=== PATIENT | male | born 1970 | race Caucasian/White ===

== ENCOUNTER 2020-04-17 12:10 | Outpatient (REF) | payer BC, SELFPAY | END 2020-04-17 12:30 | LOC: LBN 12:10 | PROVIDERS: PCP Student in an Organized Health Care Education/Training Program; Visit Provider Nurse Practitioner Family | DX: L03.116 Cellulitis of left lower limb (principal) | CPT/HCPCS: 87077; 87070; 87186; 87205 ==

== ENCOUNTER 2020-04-17 18:05 | Outpatient (CLI) | payer BC, SELFPAY ==
--- NOTE | 2020-04-17 12:19 | DI.RAD_ITS ---
EXAM: XR FEMUR LT CLINICAL HISTORY: Stump ulcer/infection, cellulitis, L03.116, r/o OM. TECHNIQUE: 2D digital imaging was performed. COMPARISON: None. FINDINGS: There are no prior comparison exams. There is a below the knee amputation at the proximal 3rd of the tibia and fibula. There is soft tissue swelling as well as a soft tissue wound seen distally at the stump. No bony erosions are seen. The hip and femur are unremarkable. Vascular calcifications are seen. IMPRESSION: Below the knee amputation. Stump ulcer. No definite evidence of osteomyelitis. DATA REPOSITORY: RADIATION DOSE DELIVERED:
== END 2020-04-17 18:25 ==
PROVIDERS: PCP Student in an Organized Health Care Education/Training Program; Visit Provider Nurse Practitioner Family
DX: T87.44 Infection of amputation stump, left lower extremity (principal); L03.116 Cellulitis of left lower limb; L97.829 Non-pressure chronic ulcer of other part of left lower leg with unspecified severity
CPT/HCPCS: 73552

== ENCOUNTER 2020-04-18 04:33 | Outpatient (CLI) | payer BC, SELFPAY ==
[2020-04-18 09:06] LABS: Abs Immature Grans 0.03 10^3/uL (0.0-0.06); Absolute Basophil Count 0.04 10^3/uL (0.0-0.2); Absolute Eosinophil Count 0.46 10^3/uL (0.0-0.7); Absolute Lymphocyte Count 1.45 10^3/uL (1.2-3.4); Absolute Monocyte Count 0.89 10^3/uL (0.1-0.8); Basophils % 0.4; Eosinophils % 4.6; HCT 40.6 % (40.0-50.0); HGB 13.5 g/dL (13.5-17.5); Immature Grans % 0.3; Lymphocytes % 14.5; MCH 34.6 pg (27.0-33.0); MCHC 33.3 % (32.0-36.0); MCV 104.1 fL (80-95); MPV 9.9 fL (8.0-11.0); Monocytes % 8.9; Neutrophils % 71.3; Nucleated RBC 0 %; Platelet Count 217 10^3/uL (130-400); RDW 12.7 % (11.8-14.1); RDW-SD 49.1 fL; WBC 9.97 10^3/uL (4.4-10.8)
[2020-04-18 09:52] LABS: C-Reactive Protein 6.75 mg/dL (0.0-0.3)
[2020-04-18 10:52] LABS: ESR 80 mm/hr (0-15)
== END 2020-04-18 04:53 ==
PROVIDERS: PCP Student in an Organized Health Care Education/Training Program; Visit Provider Nurse Practitioner Family
DX: L03.116 Cellulitis of left lower limb (principal)
CPT/HCPCS: 36415; 85652; 85025; 86140

== ENCOUNTER 2020-04-25 03:37 | Outpatient (CLI) | payer BC, SELFPAY ==
[2020-04-25 08:31] LABS: Anion Gap 5.9 mmol/L (3-11); BUN 56 mg/dL (7-18); C-Reactive Protein 6.41 mg/dL (0.0-0.3); CO2 35.1 mmol/L (21.0-32.0); CREATININE 2.89 mg/dL (0.70-1.30); Calcium 9.3 mg/dL (8.5-10.1); Chloride 97 mmol/L (98-107); Estimated GFR 23.24 (mL/min/1.73m2); Glucose 218 mg/dL (74-106); Potassium 3.9 mmol/L (3.5-5.1); Sodium 138 mmol/L (136-145)
[2020-04-25 08:58] LABS: ESR 88 mm/hr (0-15)
== END 2020-04-25 03:57 ==
PROVIDERS: PCP Student in an Organized Health Care Education/Training Program; Visit Provider Nurse Practitioner Adult Health
DX: L03.116 Cellulitis of left lower limb (principal); R79.82 Elevated C-reactive protein (CRP); R70.0 Elevated erythrocyte sedimentation rate; Z79.899 Other long term (current) drug therapy; Z51.81 Encounter for therapeutic drug level monitoring
CPT/HCPCS: 36415; 80048; 85652; 86140

== ENCOUNTER 2020-04-30 02:22 | Outpatient (CLI) | payer BC, SELFPAY ==
[2020-04-30 09:25] LABS: Anion Gap 2.6 mmol/L (3-11); BUN 56 mg/dL (7-18); CO2 36.4 mmol/L (21.0-32.0); Calcium 8.8 mg/dL (8.5-10.1); Chloride 100 mmol/L (98-107); Estimated GFR 18.51 (mL/min/1.73m2); Glucose 162 mg/dL (74-106); Potassium 4.5 mmol/L (3.5-5.1); Sodium 139 mmol/L (136-145)
[2020-04-30 09:38] LABS: CREATININE 3.52 mg/dL (0.70-1.30)
== END 2020-04-30 02:42 ==
PROVIDERS: PCP Student in an Organized Health Care Education/Training Program; Visit Provider Nurse Practitioner Adult Health
DX: Z51.81 Encounter for therapeutic drug level monitoring (principal); R79.89 Other specified abnormal findings of blood chemistry
CPT/HCPCS: 36415; 80048

== ENCOUNTER 2020-04-30 11:53 | Emergency (ER) | payer BC, SELFPAY ==
[2020-04-30] VITALS (9 sets, daily range): BP systolic 139–165; BP diastolic 81–88; PULSE 84–93; RESP 16–18; TEMP 36.3–36.9; O2SAT 97–98
--- NOTE | 2020-04-30 12:40 | ED.GENADUL_ITS ---
Discharge Plan Disposition Patient Disposition: HOME Condition: Stable Discharge Details Clinical Impression: Non-healing wound of amputation stump, Creatinine elevation Primary Care Provider: Candice Perez ED Provider: Darek Driscoll Home Meds and New Rx's Prescriptions: Continued fluticasone propion-salmeterol [Advair Diskus] 250-50 mcg/dose blister with device 1 inh inhalation BID Qty: 60 RF: 0 silver sulfadiazine 1 % cream 1 applic topical BID Qty: 50 RF: 3 Hold Instructions: Home Medication placed on hold at Doctor's office glimepiride 4 mg tablet 4 mg PO QAM RF: 0 cetirizine 10 mg tablet 10 mg PO DAILY RF: 0 furosemide 40 mg tablet 40 mg PO DAILY RF: 0 omeprazole 20 mg capsule,delayed release(DR/EC) 20 mg PO DAILY RF: 0 carvedilol 12.5 mg tablet 12.5 mg PO BID RF: 0 aspirin 81 mg tablet,delayed release (DR/EC) 81 mg PO DAILY RF: 0 atorvastatin 10 mg tablet 10 mg PO DAILY RF: 0 cholecalciferol (vitamin D3) 25 mcg (1,000 unit) capsule 25 mcg PO DAILY RF: 0 cyanocobalamin (vitamin B-12) 1,000 mcg capsule 1,000 mcg PO DAILY RF: 0 magnesium oxide 500 mg tablet 500 mg PO DAILY RF: 0 Trulicity 0.75 mg/0.5 mL pen injector 0.75 mg subcut QWEEK RF: 0 azelastine 137 mcg (0.1 %) aerosol,spray See Rx Instructions intranasal BID RF: 0 fluticasone propionate [Allergy Relief (fluticasone)] 50 mcg/actuation spray,suspension 1 spray intranasal DAILY RF: 0 halobetasol propionate 0.05 % cream 1 applic topical DAILY PRN (Reason: psoriasis) RF: 0 pseudoephedrine HCl 240 mg tablet extended release 24 hr 240 mg PO DAILY PRNRF: 0 Discontinued lisinopril 10 mg tablet 10 mg PO DAILY RF: 0 Hold Instructions: Home Medication placed on hold at Doctor's office sulfamethoxazole-trimethoprim [Bactrim DS] 800-160 mg tablet 1 tab PO BID Qty: 28 RF: 0 Discharge Instructions Additional Instructions: At this time you will continue to hold off on taking your lisinopril and will hold off on all antibiotic therapy. I personally spoke with your primary care provider regarding your visit today, she will set up an outpatient blood draw for you either on Tuesday or Tuesday. Please follow-up with your primary care provider and orthopedic provider next week as already scheduled. It appears as though they are already in the process of getting you a nephrology referral in [facility]. Be sure to drink plenty of fluids to avoid any dehydration. Please watch for new or worsening symptoms and return to the ER for any concerns. Our care management team has been notified and they will be in contact with you to help expedite outpatient hyperbaric chamber therapy at [facility] for your ongoing nonhealing wound. Please follow the instructions given to you by our wound team as well. Medical Decision Making 50-year-old gentleman with history of diabetes, chronic kidney disease, below the knee amputation presents for elevated creatinine and a nonhealing stump wound. He is otherwise asymptomatic. Denies fever, redness, pain. Will obtain IV access, reassess routine laboratory values and have wound care evaluate the wound. Clinically there are no clear signs of infection. Wound care evaluated the wound, please see their note. Wound was dressed by wound care. No additional recommendations here in the ER. Laboratory values reveal a white blood cell count of 10.36 hemoglobin 13 hematocrit 38.6 platelet count 250. Potassium 4.3 creatinine 3.37 with a GFR of 19.47. Creatinine earlier today was 3.52. Did discuss the case with Dr. Laboy. Does not appear to be anything else emergent to do here in the ER. Patient already has a referral to nephrology as an outpatient. He is scheduled to be seen by both his primary care provider and orthopedics next week. I will contact our care management team to help expedite potential hyperbaric chamber therapy at [facility]. In the meantime I was able to speak with Dr. Perez, the patient's primary care provider. The patient will discontinue all antibiotic therapy and continue to hold on the lisinopril. They will schedule him either on Tuesday or Tuesday for an outpatient redraw to check his creatinine. Patient has no additional questions or concerns and is comfortable with this plan. Medical Records Medical records reviewed: Yes I reviewed the patient's medical records. Lab Data Lab results reviewed: Yes I reviewed the patient's lab results. Labs: Laboratory Tests Range/Units 04/30/20 04/30/20 12:45 12:45 WBC (4.4-10.8) 10^3/uL 10.36 RBC (4.36-5.78) 10^6/uL 3.84 L Hgb (13.5-17.5) g/dL 13.0 L Hct (40.0-50.0) % 38.6 L MCV (80-95) fL 100.5 H MCH (27.0-33.0) pg 33.9 H MCHC (32.0-36.0) % 33.7 RDW (11.8-14.1) % 12.5 Plt Count (130-400) 10^3/uL 250 MPV (8.0-11.0) fL 10.2 Immature Gran % 0.2 Neutrophils % 77.0 Lymphocytes % 11.5 Monocytes % 6.3 Eosinophils % 4.4 Basophils % 0.6 Nucleated RBC % % 0 Absolute Neutrophils (1.2-6.7) 10^3/uL 7.98 H Absolute Lymphocytes (1.2-3.4) 10^3/uL 1.19 L Absolute Monocytes (0.1-0.8) 10^3/uL 0.65 Absolute Eosinophils (0.0-0.7) 10^3/uL 0.46 Absolute Basophils (0.0-0.2) 10^3/uL 0.06 Sodium (136-145) mmol/L 134 L Potassium (3.5-5.1) mmol/L 4.3 Chloride (98-107) mmol/L 97 L Carbon Dioxide (21.0-32.0) mmol/L 29.2 Anion Gap (3-11) mmol/L 7.8 BUN (7-18) mg/dL 57 H Creatinine (0.70-1.30) mg/dL 3.37 H Estimated GFR/1.73 m2 (mL/min/1.73m2) 19.47 Glucose (74-106) mg/dL 189 H Calcium (8.5-10.1) mg/dL 8.6 Total Bilirubin (0.2-1.0) mg/dL 0.5 AST (15-37) U/L 21 ALT (16-63) U/L 20 Alkaline Phosphatase (46-116) U/L 116 Total Protein (6.4-8.2) g/dL 7.1 Albumin (3.4-5.0) g/dL 3.1 L HPI General Mode of arrival: ambulatory . Date/Time Provider Initiated Documentation: 04/30/20 11:55 . Limitations to Documentation: no limitations . Information obtained by: patient . HPI Narrative: This is a 50-year-old gentleman with history of diabetes type 2, CHF, CKD stage III, left below the knee amputation approximately 4 years ago, presenting to the ER per the request of his primary care office. He moved up here earlier this year, began working at [employer], and from being on his feet frequently, developed a wound/ulcer to his left below the knee stump. This was evaluated by his primary care provider, he was initially placed on clindamycin and subsequently changed to Bactrim. He believes he has been on antibiotics for approximately 2 weeks, Bactrim changed over approximately 1 week ago. He had outpatient blood work drawn today, creatinine was elevated above baseline, sent to the ER for evaluation. He otherwise has no concerns or complaints. He was supposed to be seen by orthopedics yesterday but because of a misunderstanding he did not make the appointment. He is scheduled to be seen by both his primary care provider and orthopedics next week. He to he takes lisinopril for hypertension but this is on hold currently. He denies fever, headache, chest pain, shortness of breath abdominal pain, nausea, vomiting. He denies any pain from the left leg wound. He reports that the redness that was present a couple weeks ago looks significantly better. Related Data Home Medications Medication Instructions Recorded Confirmed aspirin 81 mg tablet,delayed 81 mg PO DAILY 04/02/20 04/30/20 release atorvastatin 10 mg tablet 10 mg PO DAILY 04/02/20 04/30/20 azelastine 137 mcg (0.1 %) nasal See Rx Instructions INTRANASAL BID 04/02/20 04/30/20 spray aerosol carvedilol 12.5 mg tablet 12.5 mg PO BID 04/02/20 04/30/20 cetirizine 10 mg tablet 10 mg PO DAILY 04/02/20 04/30/20 cholecalciferol (vitamin D3) 25 25 mcg PO DAILY 04/02/20 04/30/20 mcg (1,000 unit) capsule cyanocobalamin (vitamin B-12) 1,000 mcg PO DAILY 04/02/20 04/30/20 1,000 mcg capsule dulaglutide 0.75 mg/0.5 mL 0.75 mg SUBCUT QWEEK 04/02/20 04/30/20 subcutaneous pen injector fluticasone propionate 50 1 spray INTRANASAL DAILY 04/02/20 04/30/20 mcg/actuation nasal spray,suspension furosemide 40 mg tablet 40 mg PO DAILY 04/02/20 04/30/20 glimepiride 4 mg tablet 4 mg PO QAM 04/02/20 04/30/20 halobetasol propionate 0.05 % 1 applic TOPICAL DAILY PRN 04/02/20 04/30/20 topical cream magnesium oxide 500 mg tablet 500 mg PO DAILY 04/02/20 04/30/20 omeprazole 20 mg capsule,delayed 20 mg PO DAILY 04/02/20 04/30/20 release pseudoephedrine HCl 240 mg 240 mg PO DAILY PRN 04/02/20 04/30/20 tablet,extended release 24 hr fluticasone 250 mcg-salmeterol 50 1 inh INHALATION BID #60 ea 04/05/20 04/30/20 mcg/dose blistr powdr for inhalation silver sulfadiazine 1 % topical 1 applic TOPICAL BID #50 g 04/10/20 04/30/20 cream Previous Rx's Medication Instructions Recorded fluticasone 250 mcg-salmeterol 50 1 inh INHALATION BID #60 ea 04/05/20 mcg/dose blistr powdr for inhalation silver sulfadiazine 1 % topical 1 applic TOPICAL BID #50 g 04/10/20 cream Allergies Allergy/AdvReac Type Severity Reaction Status Date / Time No Known Allergies Allergy Verified 04/30/20 12:07 General Stated Complaint: GenMedical RAOMN: 3 Review of Systems Constitutional Constitutional: Denies fatigue, Denies fever(s) and Denies weakness Cardiovascular Cardiovascular: Denies chest pain and Denies dyspnea Respiratory Respiratory: Denies dyspnea Gastrointestinal Gastrointestinal: Denies abdominal pain, Denies nausea and Denies vomiting Musculoskeletal Musculoskeletal: Denies back pain, Denies numbness and Reports tingling (Baseline neuropathy) Integumentary/Breasts Skin/Breast: Denies erythema Neurologic Neurologic: Denies numbness and Denies weakness Endocrine Endocrine: Denies fatigue [facility] Medical History Chronic systolic CHF (congestive heart failure) CKD stage 3 secondary to diabetes Erectile dysfunction Hypertension associated with diabetes Nasal polyp Pt report based on past ENT Nasal polyps Persistent proteinuria associated with type 2 diabetes mellitus Secondary hyperparathyroidism Testicular cancer Type II diabetes mellitus Vitamin D deficiency Surgical History History of amputation of great toe Right History of amputation of left lower extremity History of cardiac defibrillator placement History of cataract removal with insertion of prosthetic lens (~03/02/18) Right History of cystoscopy (~12/25/13) History of gastric bypass (~07/01/14) History of orchiectomy, unilateral (~06/1999) Right History of tonsillectomy (~1979) Family History Mother Diabetes Father Diabetes Heart disease Hypertension Sister Diabetes Brother Diabetes Brother Diabetes Heart disease Hypertension Social History Smoking/Tobacco Use Status: Former Tobacco Use Quit Date: 07/18/98 Tobacco: How many years used: 10 Alcohol Intake: current Alcohol Intake frequency: 0-2 drinks per day Alcohol type: hard liquor Drug use: Never Substance use type: does not use Adopted: No Caregiver/Support person: No Foster care: No Household members: significant other Housing: house Do you need help understanding health information?: Rarely current occupation: Unemployed Sexually active: Yes Do you think of yourself as: straight/heterosexual Current gender identity: male Do you feel safe at home: Yes Do you feel safe in your relationship?: Yes Exam Const General: cooperative, healthy appearing, comfortable and no acute distress Orientation: alert, awake and oriented x3 HENMT Head: normal to inspection, normocephalic and atraumatic Mouth: moist mucous membranes Eyes General: appearance normal, both eyes and all related structures Conjunctivae: conjunctivae normal Sclera: sclerae normal Neck Neck: normal visual inspection, full ROM, trachea midline and supple Resp Effort & Inspection: normal respiratory effort and able to speak in complete sentences Auscultation: clear to auscultation bilaterally Cardio Rate: regular rate Rhythm: regular rhythm GI Palpation: soft and nontender Back/Spine/Pelvis Back: No back tenderness Skin General skin exam: no rashes or lesions noted Neuro General: patient alert, patient awake, moves all extremities and no focal motor deficits Gait: gait assisted (Left below the knee prosthesis) Sensory Exam: no sensory deficits noted Extrem Other: Left below the knee amputation stump, distally, with a open wound approximately the size of a quarter. There is no active drainage, warmth, erythema, induration, fluctuance, tenderness to palpation. There is also no evidence of any granulation tissue. Psych Appearance: grossly normal Mental Status: mental status grossly normal Course Vital Signs Vital signs: Vital Signs Temperature 36.3 C L 04/30/20 12:03 Pulse 91 H 04/30/20 12:03 Respiratory Rate 18 04/30/20 12:03 Blood Pressure 165/88 H 04/30/20 12:03 Pulse Oximetry 98 04/30/20 12:03 Temperature 36.6 C 04/30/20 12:27 Temperature Source Temporal Artery Scan 04/30/20 12:27 Pulse 93 H 04/30/20 12:27 Respiratory Rate 16 04/30/20 12:27 Respiratory Effort 04/30/20 12:20 Respiratory Depth Normal 04/30/20 12:20 Respiratory Pattern Normal 04/30/20 12:20 Blood Pressure 142/87 H 04/30/20 12:27 Blood Pressure Position Sitting 04/30/20 12:03 Pulse Oximetry 98 04/30/20 12:27 Oxygen Delivery Method Room Air 04/30/20 12:27 Oxygen Flow Rate 0 04/30/20 12:27 Pain Level 0 04/30/20 12:27
[2020-04-30 12:56] LABS: Abs Immature Grans 0.02 10^3/uL (0.0-0.06); Absolute Basophil Count 0.06 10^3/uL (0.0-0.2); Absolute Eosinophil Count 0.46 10^3/uL (0.0-0.7); Absolute Lymphocyte Count 1.19 10^3/uL (1.2-3.4); Absolute Monocyte Count 0.65 10^3/uL (0.1-0.8); Absolute Neutrophil Count 7.98 10^3/uL (1.2-6.7); Basophils % 0.6; Eosinophils % 4.4; HCT 38.6 % (40.0-50.0); Immature Grans % 0.2; Lymphocytes % 11.5; MCH 33.9 pg (27.0-33.0); MCHC 33.7 % (32.0-36.0); MCV 100.5 fL (80-95); MPV 10.2 fL (8.0-11.0); Monocytes % 6.3; Nucleated RBC 0 %; Platelet Count 250 10^3/uL (130-400); RBC 3.84 10^6/uL (4.36-5.78); RDW 12.5 % (11.8-14.1); RDW-SD 45.9 fL; WBC 10.36 10^3/uL (4.4-10.8)
[2020-04-30] MEDS: Normal Saline 1,000 ML 1000 ML IV (13:04)
[2020-04-30 13:18] LABS: ALT 20 U/L (16-63); AST 21 U/L (15-37); Albumin 3.1 g/dL (3.4-5.0); Alkaline Phosphatase 116 U/L (46-116); Anion Gap 7.8 mmol/L (3-11); BUN 57 mg/dL (7-18); Bilirubin, Total 0.5 mg/dL (0.2-1.0); CO2 29.2 mmol/L (21.0-32.0); CREATININE 3.37 mg/dL (0.70-1.30); Calcium 8.6 mg/dL (8.5-10.1); Chloride 97 mmol/L (98-107); Estimated GFR 19.47 (mL/min/1.73m2); Glucose 189 mg/dL (74-106); Potassium 4.3 mmol/L (3.5-5.1); Sodium 134 mmol/L (136-145); Total Protein 7.1 g/dL (6.4-8.2)
--- NOTE | 2020-04-30 13:36 | WOUNDCARE ---
Wound Care Report 04/30/20 1300- Pt seen in ED for l infected residual limb wound. Per pt wound present for about a month and pt noticed it after standing more. Pt reports that he does own dressing changes and the wound had a strong odor which was improving. Pt seen today by PCP for wound follow up and pt reported he had not changed the dressing today yet. After removing dressing which had strike through serous drainage, wound was cleansed with ns, pat dry and measured at 4.2 cm x 3.5 cm x 1 cm tunnel at approximately center with another 3 cm tunnel anterior at approximately 12 o'clock. Slight odor noted. Wound cleansed with anasept cleanser, then plain packing strip inserted gently into tunnels and mepilex applied with gauze to secure. Wound bed light pink, with approximately 0.2 cm border of dark pink at periphery of wound bed. Edges of wound slightly macerated with dusky pink periphery.Pt denies pain at site, but does have feeling in residual limb with dressing change. Patient verbalized understanding of dressing change, able to state it back, reminded not to leave anything in wound longer than 24 hours and to change dressing if saturated. Pt verbalized understanding.
--- NOTE | 2020-04-30 13:59 | NUR.NOTE ---
referral to care management to get patient appointment with hyperbaric wound care at [facility].Nursing Note:
--- NOTE | 2020-05-02 13:13 | PDOC.ERCMPRO ---
- If Service Date Differs Date of service: 04/30/20 Time of Service: 14:50 Care Management Progress Note Mr. Serrato is seen in the ED for a non-healing wound of amputation stump. At the request of ED provider, CM coordinates a referral to the [facility] at [facility] in [place], [place]. CM will follow up with patient to ensure appointment is scheduled.
== END 2020-04-30 14:28 | disposition home or self-care (01) ==
PROVIDERS: Emergency Provider Physician Assistant; PCP Student in an Organized Health Care Education/Training Program
DX: T87.89 Other complications of amputation stump (principal); L97.901 Non-pressure chronic ulcer of unspecified part of unspecified lower leg limited to breakdown of skin; R94.4 Abnormal results of kidney function studies; I12.9 Hypertensive chronic kidney disease with stage 1 through stage 4 chronic kidney disease, or unspecified chronic kidney disease; N18.30 Chronic kidney disease, stage 3 unspecified; E11.22 Type 2 diabetes mellitus with diabetic chronic kidney disease; Z79.84 Long term (current) use of oral hypoglycemic drugs; Z89.512 Acquired absence of left leg below knee
CPT/HCPCS: 36415; 80053; 96360; 99284; 85025

== ENCOUNTER 2020-05-03 11:00 | Outpatient (REF) | payer BC, SELFPAY ==
[2020-05-03 15:26] LABS: Anion Gap 3.6 mmol/L (3-11); BUN 41 mg/dL (7-18); CO2 33.4 mmol/L (21.0-32.0); Chloride 100 mmol/L (98-107); Estimated GFR 26.26 (mL/min/1.73m2); Glucose 162 mg/dL (74-106); Potassium 4.3 mmol/L (3.5-5.1); Sodium 137 mmol/L (136-145)
== END 2020-05-03 11:20 ==
LOC: LBO 11:00
PROVIDERS: PCP Student in an Organized Health Care Education/Training Program; Visit Provider Student in an Organized Health Care Education/Training Program
DX: E11.9 Type 2 diabetes mellitus without complications (principal); R79.89 Other specified abnormal findings of blood chemistry
CPT/HCPCS: 80048

== ENCOUNTER 2020-05-14 02:44 | Outpatient (CLI) | payer BC, SELFPAY ==
--- NOTE | 2020-05-14 07:15 | DI.CT_ITS ---
EXAM: CT LOWER EXTREMITY LT WO CLINICAL HISTORY: ? OSTEOMYELITIS,NON HEALING WOUND,T87.89,PACEMAKER SO CANNOT HAVE MRI TECHNIQUE: COMPARISON: CR XR FEMUR LT from 04/17/2020 FINDINGS: CT examination of the leg was performed without contrast administration. Patient has a below-knee am putation. There is intermediate attenuation poorly defined area of fluid to soft tissue attenuation surrounding the distal aspect tibial remnant, highly suggestive of abscess. Tip of the fibula lies peripherally in this area of abnormal attenuation. There is a moth eaten appearance of the distal aspect of the tibia suspicious for osteomyelitis. There is sclerosis extending through the cortex of the tibial re mnant extending up to 10 cm above the distal aspect of the remnant. No focal bony abnormality of fib ular remnant noted. IMPRESSION: Findings suggestive of abscess at the stump of the BKA with probable osteomyelitis of the distal aspe ct of the tibia. RADIATION DOSE DELIVERED: 253.65mGy.cm Total DLP
== END 2020-05-14 03:04 ==
PROVIDERS: PCP Student in an Organized Health Care Education/Training Program; Visit Provider Orthopaedic Surgery
DX: T87.89 Other complications of amputation stump (principal); Z95.0 Presence of cardiac pacemaker
CPT/HCPCS: 73700

== ENCOUNTER 2020-05-23 12:37 | Outpatient (REF) | payer BC, SELFPAY ==
[2020-05-23 19:52] LABS: Abs Immature Grans 0.02 10^3/uL (0.0-0.06); Absolute Basophil Count 0.04 10^3/uL (0.0-0.2); Absolute Eosinophil Count 0.55 10^3/uL (0.0-0.7); Absolute Lymphocyte Count 1.56 10^3/uL (1.2-3.4); Absolute Monocyte Count 0.84 10^3/uL (0.1-0.8); Absolute Neutrophil Count 5.68 10^3/uL (1.2-6.7); Basophils % 0.5; Eosinophils % 6.3; HCT 41.5 % (40.0-50.0); HGB 13.6 g/dL (13.5-17.5); Immature Grans % 0.2; MCH 33.9 pg (27.0-33.0); MCHC 32.8 % (32.0-36.0); MCV 103.5 fL (80-95); MPV 11.2 fL (8.0-11.0); Monocytes % 9.7; Neutrophils % 65.3; Nucleated RBC 0 %; Platelet Count 186 10^3/uL (130-400); RBC 4.01 10^6/uL (4.36-5.78); RDW 12.9 % (11.8-14.1); RDW-SD 48.6 fL; WBC 8.69 10^3/uL (4.4-10.8)
[2020-05-23 20:00] LABS: Anion Gap 4.4 mmol/L (3-11); BUN 64 mg/dL (7-18); CO2 36.6 mmol/L (21.0-32.0); CREATININE 2.17 mg/dL (0.70-1.30); Calcium 8.8 mg/dL (8.5-10.1); Chloride 97 mmol/L (98-107); Estimated GFR 32.35 (mL/min/1.73m2); Glucose 229 mg/dL (74-106); Potassium 4.1 mmol/L (3.5-5.1); Sodium 138 mmol/L (136-145); Uric Acid 10.1 mg/dL (3.5-7.2)
== END 2020-05-23 12:57 ==
LOC: LBO 12:37
PROVIDERS: PCP Student in an Organized Health Care Education/Training Program; Visit Provider Student in an Organized Health Care Education/Training Program
DX: D64.9 Anemia, unspecified (principal); M79.645 Pain in left finger(s); R79.89 Other specified abnormal findings of blood chemistry; I10 Essential (primary) hypertension; N18.30 Chronic kidney disease, stage 3 unspecified
CPT/HCPCS: 80048; 84550; 85025

== ENCOUNTER 2020-08-19 10:48 | Outpatient (CLI) | payer BC, SELFPAY ==
--- NOTE | 2020-08-19 10:50 | DI.RAD_ITS ---
EXAM: XR SHOULDER RT COMPLETE 2+V CLINICAL HISTORY: R shoulder pain. TECHNIQUE: 2D digital imaging was performed. COMPARISON: No exams were available for comparison FINDINGS: There are mild degenerative changes of the acromioclavicular joint. The glenohumeral joint appears w ell maintained. The bones are intact. The soft tissues are unremarkable. IMPRESSION: DATA REPOSITORY: RADIATION DOSE DELIVERED:
== END 2020-08-19 10:49 | disposition home or self-care (01) ==
LOC: DIORS 10:50
PROVIDERS: PCP Student in an Organized Health Care Education/Training Program; Referring Provider Student in an Organized Health Care Education/Training Program; Visit Provider Physician Assistant
DX: M19.011 Primary osteoarthritis, right shoulder (principal)
CPT/HCPCS: 73030

== ENCOUNTER 2020-08-22 11:41 | Outpatient (CLI) | payer BC, SELFPAY ==
[2020-08-23 14:40] LABS: COVID-19 RT-PCR UVMMC Result Negative (Negative)
== END 2020-08-22 11:42 | disposition home or self-care (01) ==
LOC: LBO 11:41
PROVIDERS: PCP Student in an Organized Health Care Education/Training Program; Visit Provider Student in an Organized Health Care Education/Training Program
DX: Z20.822 Contact with and (suspected) exposure to COVID-19 (principal)
CPT/HCPCS: U0003

== ENCOUNTER 2020-08-22 21:48 | Outpatient (CLI) | payer BC, SELFPAY ==
--- NOTE | 2020-08-22 11:15 | DI.RAD_ITS ---
EXAM: XR CHEST 2V PA LATERAL CLINICAL HISTORY: r/o pneumonia,wheeze,chest congestion, R06.02, R9.89 TECHNIQUE: 2D digital imaging was performed. COMPARISON: CR XR SHOULDER RT COMPLETE 2+V from 08/19/2020 FINDINGS: MEDIASTINUM: Normal. HEART: The heart is at the upper limits of normal in size. A single lead transvenous pacemaker is in place. PULMONARY VASCULATURE: Normal. LUNGS: Several tiny nodule densities are seen in the lungs. These may represent calcified granuloma. A CT scan of the chest is recommended for further evaluation. No focal consolidating infiltrates a re seen. PLEURAL SPACE: No pleural effusion or pneumothorax. BONE:Within normal limits for the patient's age. OTHER FINDINGS:Normal. IMPRESSION: DATA REPOSITORY: RADIATION DOSE DELIVERED:
== END 2020-08-22 21:49 ==
LOC: DI 08-25 21:49
PROVIDERS: PCP Student in an Organized Health Care Education/Training Program; Visit Provider Student in an Organized Health Care Education/Training Program
DX: R06.2 Wheezing (principal); R09.89 Other specified symptoms and signs involving the circulatory and respiratory systems; R91.8 Other nonspecific abnormal finding of lung field
CPT/HCPCS: 71046

== ENCOUNTER 2021-04-17 00:14 | Outpatient (CLI) | payer OTHER, SELFPAY ==
[2021-04-17] MEDS: Albuterol HFA 18 GM 200 PUFF INH IH (11:03)
[2021-04-17] MEDS: Inhaler, Assist Device 1 EACH MC (11:04)
--- NOTE | 2021-04-21 14:35 | W.PFT ---
Date of service: 04/17/21 Time of Service: 10:09 Pulmonary Function Test Result Requesting Provider Jessica Mijares Indications: Disability Determination Interpretation Spirometry: There is moderate airflow obstruction. Although technically there is not a significant bronchodilator effect the FEV1 increased by 210 cc in 10% with administration of albuterol. Impression Moderate airflow obstruction. Although does not meet criteria for significant bronchodilator effect and there was likely clinically significant improvement following administration of a bronchodilator. Note: When compared to spirometry performed 04/29/2020 the FEV1 has improved in the FVC remains unchanged. Clinical Correlation therefore is recommended.
== END 2021-04-17 00:15 | disposition home or self-care (01) ==
PROVIDERS: PCP Student in an Organized Health Care Education/Training Program; Visit Provider Pediatrics Pediatric Rheumatology
DX: Z02.71 Encounter for disability determination (principal); J44.9 Chronic obstructive pulmonary disease, unspecified
CPT/HCPCS: 94060

== ENCOUNTER 2021-07-31 04:34 | Outpatient (CLI) | payer MEDICAID, SELFPAY ==
[2021-07-31 11:12] LABS: HCT 39.1 % (40.0-50.0); HGB 12.4 g/dL (13.5-17.5); MCH 31.1 pg (27.0-33.0); MCHC 31.7 % (32.0-36.0); MPV 10.7 fL (8.0-11.0); Platelet Count 187 10^3/uL (130-400); RBC 3.99 10^6/uL (4.36-5.78); RDW 13.1 % (11.8-14.1); RDW-SD 46.3 fL; WBC 10.54 10^3/uL (4.4-10.8)
[2021-07-31 12:52] LABS: ALT 22 U/L (16-63); AST 13 U/L (15-37); Albumin 3.4 g/dL (3.4-5.0); Alkaline Phosphatase 102 U/L (46-116); Anion Gap 5.8 mmol/L (3-11); BUN 59 mg/dL (7-18); Bilirubin, Total 0.3 mg/dL (0.2-1.0); CO2 29.2 mmol/L (21.0-32.0); CREATININE 2.4 mg/dL (0.70-1.30); Calcium 8.6 mg/dL (8.5-10.1); Calculated LDL 104 mg/dL (<100); Chloride 105 mmol/L (98-107); Cholesterol 182 mg/dL (<200); Estimated GFR 28.68 (mL/min/1.73m2); Glucose 153 mg/dL (74-106); HDL Cholesterol 62 mg/dL (40-60); Potassium 4.8 mmol/L (3.5-5.1); Sodium 140 mmol/L (136-145); TSH (W/Ref FT4) 2.58 uIU/mL (0.36-3.74); Total Protein 6.5 g/dL (6.4-8.2); Triglyceride 80 mg/dL (<150)
[2021-07-31 13:05] LABS: PHOSPHORUS 4.2 mg/dL (2.6-4.7)
[2021-07-31 18:19] LABS: PSA, Screening 0.7 ng/mL (0.0-3.5)
[2021-08-02 17:16] LABS: Testosterone, Total 342 ng/dL (240-950)
[2021-08-03 01:18] LABS: Vitamin D 25 Total 33.1 ng/mL (30-100)
[2021-08-03 10:23] LABS: Parathyroid Hormone,Intact 149 pg/mL (19-88)
== END 2021-07-31 04:35 | disposition home or self-care (01) ==
LOC: LBO 04:34
PROVIDERS: PCP Student in an Organized Health Care Education/Training Program; Visit Provider Student in an Organized Health Care Education/Training Program
DX: E55.9 Vitamin D deficiency, unspecified (principal); E11.22 Type 2 diabetes mellitus with diabetic chronic kidney disease; N18.30 Chronic kidney disease, stage 3 unspecified; I10 Essential (primary) hypertension; R80.9 Proteinuria, unspecified; Z13.220 Encounter for screening for lipoid disorders; Z12.5 Encounter for screening for malignant neoplasm of prostate; R53.83 Other fatigue; Z86.2 Personal history of diseases of the blood and blood-forming organs and certain disorders involving the immune mechanism
CPT/HCPCS: 36415; 80053; 80061; 82306; 84153; 84403; 85027; 83970; 84100; 84443

== ENCOUNTER 2021-10-22 09:46 | Outpatient (CLI) | payer MEDICAID, SELFPAY ==
--- NOTE | 2021-10-22 09:15 | DI.RAD_ITS ---
Exam(s) XR KNEE RT 2V AP,LAT EXAM: XR KNEE RT 2V AP,LAT CLINICAL HISTORY: loss of motion. TECHNIQUE: 2D digital imaging was performed of the right knee. Two views obtained. AP and lateral views were obtained. COMPARISON: No previous for comparison. FINDINGS: BONES: No acute fracture is present. The distal femur and proximal tibia and fibula have a somewhat m ottled appearance. This may be due to osteopenia. No cortical destructive lesion is present. There is an exophytic bony prominence on the medial aspect of the distal metaphysis of the right femur pro jecting away from the joint. It is most consistent with an osteochondroma. JOINTS: Mild joint space narrowing is seen in the femoral tibial joint. Mild spurring is seen at the posterior patella. There is a small suprapatellar joint effusion. SOFT TISSUE: Atherosclerosis. IMPRESSION: Mild degenerative changes of the right knee. DATA REPOSITORY: RADIATION DOSE DELIVERED:
== END 2021-10-22 09:47 | disposition home or self-care (01) ==
LOC: DIORS 09:47
PROVIDERS: PCP Student in an Organized Health Care Education/Training Program; Referring Provider Student in an Organized Health Care Education/Training Program; Visit Provider Physician Assistant Surgical
DX: M25.561 Pain in right knee (principal); M25.861 Other specified joint disorders, right knee; M25.461 Effusion, right knee; M17.11 Unilateral primary osteoarthritis, right knee
CPT/HCPCS: 73560

== ENCOUNTER 2021-12-08 18:40 | Outpatient (REF) | payer MEDICAID, SELFPAY ==
[2021-12-08 11:59] LABS: HCT 42.5 % (40.0-50.0); MCHC 30.6 % (32.0-36.0); MCV 95 fL (80-95); MPV 11.2 fL (8.0-11.0); Platelet Count 210 10^3/uL (130-400); RBC 4.48 10^6/uL (4.36-5.78); RDW 14.9 % (11.8-14.1); RDW-SD 51.8 fL; WBC 7.52 10^3/uL (4.4-10.8)
[2021-12-08 12:25] LABS: ALT 21 U/L (16-63); AST 14 U/L (15-37); Albumin 2.6 g/dL (3.4-5.0); Alkaline Phosphatase 120 U/L (46-116); Anion Gap 7.1 mmol/L (3-11); BUN 53 mg/dL (7-18); Bilirubin, Total 0.4 mg/dL (0.2-1.0); CO2 29.9 mmol/L (21.0-32.0); CREATININE 2.6 mg/dL (0.70-1.30); Calcium 8.4 mg/dL (8.5-10.1); Chloride 105 mmol/L (98-107); Estimated GFR 26.15 (mL/min/1.73m2); Glucose 211 mg/dL (74-106); NT-proBNP 17138 pg/mL (<300); Potassium 4.7 mmol/L (3.5-5.1); Sodium 142 mmol/L (136-145); Total Protein 5.8 g/dL (6.4-8.2)
== END 2021-12-08 18:41 | disposition home or self-care (01) ==
LOC: NCHCN 18:40
PROVIDERS: PCP Student in an Organized Health Care Education/Training Program; Visit Provider Student in an Organized Health Care Education/Training Program
DX: E11.65 Type 2 diabetes mellitus with hyperglycemia (principal); E11.22 Type 2 diabetes mellitus with diabetic chronic kidney disease; I50.22 Chronic systolic (congestive) heart failure; E87.70 Fluid overload, unspecified; N18.30 Chronic kidney disease, stage 3 unspecified; D64.9 Anemia, unspecified
CPT/HCPCS: 80053; 85027; 83735; 83880

== ENCOUNTER 2021-12-14 16:10 | Inpatient (IN) | payer MEDICAID, SELFPAY ==
[2021-12-14] VITALS (44 sets, daily range): BP systolic 147–193; BP diastolic 60–126; PULSE 75–103; RESP 13–28; TEMP 36.3–37; O2SAT 89–100
--- NOTE | 2021-12-14 16:00 | RT.EKG_ITS ---
APPROVED REPORT Exam: Resting ECG Reason for Exam: sob Patient Location: E HR:97 bpm ECG Measurements Heart Rate 97 AXIS NE 154 P 59 QRSd 113 QRS 120 QT 363 T -7 QTc 463 Conclusion Sinus rhythm...normal P axis, V-rate 60- 99 Probable left atrial enlargement...P >50mS, <-0.10mV V1 Low voltage, extremity and precordial leads...extremity<0.5mV, precordial<1.0mV sinus rhtyhm, normal axis, consider incomplete interventricular delay
--- NOTE | 2021-12-14 16:30 | DI.RAD_ITS ---
Exam(s) XR PORTABLE CHEST AP EXAM: XR PORTABLE CHEST AP CLINICAL HISTORY: chf and copd, sob. TECHNIQUE: 2D digital imaging was performed. COMPARISON: CR XR CHEST 2V PA LATERAL from 08/22/2020 FINDINGS: Single AP portable view. Left unipolar subclavian pacemaker noted with distal lead in the right ventricle Heart size unchanged. The mediastinum is not widened. There is patchy infiltrate in the right lung base. No obvious pleural effusions. No pulmonary edema IMPRESSION: Right lung base infiltrate. Appropriate follow-up recommended. DATA REPOSITORY: RADIATION DOSE DELIVERED: All CT scans at this facility use at least one of these dose optimization techniques: automated exposure control; mA and/or kV adjustment per patient size (includes targeted e xams where dose is matched to clinical indication); or iterative reconstruction.
[2021-12-14] MEDS: Furosemide 40 MG/4 ML VIAL IVP (17:00)
[2021-12-14] MEDS: Albuterol/Ipratropium 3 ML UPD VIAL 9 ML UPD (17:01)
[2021-12-14 17:10] LABS: Abs Immature Grans 0.02 10^3/uL (0.0-0.06); Absolute Basophil Count 0.04 10^3/uL (0.0-0.2); Absolute Eosinophil Count 0.19 10^3/uL (0.0-0.7); Absolute Lymphocyte Count 0.65 10^3/uL (1.2-3.4); Absolute Monocyte Count 0.94 10^3/uL (0.1-0.8); Absolute Neutrophil Count 5.63 10^3/uL (1.2-6.7); Basophils % 0.5; Eosinophils % 2.5; HCT 42.9 % (40.0-50.0); HGB 13.2 g/dL (13.5-17.5); Immature Grans % 0.3; Lymphocytes % 8.7; MCH 28.4 pg (27.0-33.0); MCHC 30.8 % (32.0-36.0); MCV 93 fL (80-95); MPV 10.6 fL (8.0-11.0); Monocytes % 12.6; Neutrophils % 75.4; Platelet Count 197 10^3/uL (130-400); RBC 4.64 10^6/uL (4.36-5.78); RDW 15.3 % (11.8-14.1); RDW-SD 52.1 fL; WBC 7.47 10^3/uL (4.4-10.8)
[2021-12-14 17:24] LABS: INR 1.2 (0.9-1.1); PTT Activated 24.9 sec (21.0-27.5); Prothrombin Time 11.6 sec (9.3-11.0)
[2021-12-14 17:33] LABS: ALT 15 U/L (16-63); AST 27 U/L (15-37); Albumin 2.3 g/dL (3.4-5.0); Alkaline Phosphatase 117 U/L (46-116); Anion Gap 7.9 mmol/L (3-11); BUN 43 mg/dL (7-18); Bilirubin, Total 0.5 mg/dL (0.2-1.0); CO2 28.1 mmol/L (21.0-32.0); CREATININE 2.5 mg/dL (0.70-1.30); Calcium 8.4 mg/dL (8.5-10.1); Chloride 104 mmol/L (98-107); Estimated GFR 27.36 (mL/min/1.73m2); Glucose 127 mg/dL (74-106); NT-proBNP 21346 pg/mL (<300); Potassium 4.2 mmol/L (3.5-5.1); Sodium 140 mmol/L (136-145); Total Protein 6.1 g/dL (6.4-8.2)
[2021-12-14 17:34] LABS: Troponin I 732 ng/L (<or=60)
[2021-12-14 17:42] LABS: COVID-19 PCR Negative (Negative); Influenza A PCR Negative (Negative); Influenza B PCR Negative (Negative); RSV PCR Negative (Negative)
--- NOTE | 2021-12-14 18:37 | ED.GENADUL_ITS ---
Discharge Plan Disposition Patient Disposition: [facility] INPATIENT Condition: Stable Discharge Details Chief Complaint: SOB Clinical Impression: CHF exacerbation, COPD exacerbation Primary Care Provider: Candice Perez ED Provider: Irineo Cooley Caroleen Meds and New Rx's Prescriptions: No Action tramadol 100 mg tablet extended release 24 hr 100 mg PO DAILY Qty: 10 0RF Rx Instructions: trial for severe shldr pain to allow for sleep cvlkxsqy-bpbufhsei-KN 3.5-10,000-1 mg/mL-unit/mL-% solution 4 drp otic (ear) QID Qty: 10 1RF clobetasol 0.05 % spray,non-aerosol 1 applic topical BID 7 Days Qty: 59 1RF Rx Instructions: not to exceed 26 sprays per single application Lantus Solostar U-100 Insulin 100 unit/mL (3 mL) insulin pen 30 unit subcut QPM (DME) Left Outer Sleeve See Rx Instructions .Route .MEDSUPPLY Qty: 1 0RF Rx Instructions: As directed (DME) RIGHT Prosthesis Adjustments See Rx Instructions .Route .MEDSUPPLY Qty: 1 0RF Rx Instructions: As directed Farxiga 5 mg tablet 5 mg PO DAILY Qty: 90 1RF ascorbic acid (vitamin C) 1,000 mg tablet 1 g PO Q6H Qty: 90 1RF aspirin 81 mg tablet,delayed release (DR/EC) 81 mg PO DAILY Qty: 90 3RF atorvastatin 10 mg tablet 10 mg PO DAILY Qty: 90 3RF azelastine 137 mcg (0.1 %) aerosol,spray See Rx Instructions intranasal BID Qty: 30 1RF Rx Instructions: 1-2 sprays intranasal twice a day; administer into each nostril carvedilol 12.5 mg tablet 12.5 mg PO BID Qty: 180 3RF Rx Instructions: must administer with a meal/food cetirizine 10 mg tablet 10 mg PO DAILY Qty: 90 3RF cholecalciferol (vitamin D3) 25 mcg (1,000 unit) capsule 25 mcg PO DAILY Qty: 90 3RF cyanocobalamin (vitamin B-12) 1,000 mcg capsule 1,000 mcg PO DAILY Qty: 90 3RF Dupixent Syringe 200 mg/1.14 mL syringe 200 mg subcut Q2W Qty: 2.28 3RF (DME) FreeStyle Luis 2 Baird Misc See Rx Instructions .ROUTE .MEDSUPPLY Qty: 1 0RF Rx Instructions: As directed fluticasone propion-salmeterol [Advair Diskus] 250-50 mcg/dose blister with device 1 inh inhalation BID Qty: 60 0RF fluticasone propionate [Allergy Relief (fluticasone)] 50 mcg/actuation spray, suspension 1 spray intranasal DAILY Qty: 16 1RF Rx Instructions: administer into each nostril furosemide 40 mg tablet 40 mg PO DAILY Qty: 90 3RF halobetasol propionate 0.05 % cream 1 applic topical DAILY PRN (Reason: psoriasis) Qty: 50 1RF ibuprofen 800 mg tablet 800 mg PO Q8H PRN (Reason: pain) Qty: 30 1RF Rx Instructions: Trial x 3 days then BID lisinopril 10 mg tablet 10 mg PO DAILY Qty: 90 3RF magnesium oxide 500 mg tablet 500 mg PO DAILY Qty: 90 3RF omeprazole 20 mg capsule,delayed release(DR/EC) 20 mg PO DAILY Qty: 90 3RF silver sulfadiazine 1 % cream 1 applic topical BID Qty: 400 3RF Hold Instructions: Home Medication placed on hold at Doctor's office Rx Instructions: apply a 1.5 mm thickness albuterol sulfate 90 mcg/actuation HFA aerosol inhaler 2 puff inhalation Q6H PRN cyclobenzaprine 10 mg tablet 10 mg PO BID PRN (Reason: muscle spasm) Qty: 30 1RF Rx Instructions: Trial for neck stiffness/spasm. Do NOT use with Tramadol. diazepam [Valium] 5 mg tablet 5 mg PO QHS PRN (Reason: sleep) Qty: 7 0RF Rx Instructions: Trial for severe neck spasm, splinting. pseudoephedrine HCl 240 mg tablet extended release 24 hr 240 mg PO DAILY PRN Hold Instructions: Home Medication placed on hold at Doctor's office (DME) Amputation Compression Sleeve See Rx Instructions .Route .MEDSUPPLY Qty: 1 0RF Rx Instructions: Please provide and fit a compression sleeve to the left BKA stump for appropriate prosthesis wear. insulin lispro 100 unit/mL solution 1 sliding scale dose subcut USEASDIRECTD MDD 10u Qty: 10 3RF Rx Instructions: [facility] [place] of 1u:30mg/dl, starting at 130mg/dl per pt. 01/06/21 (DME) FreeStyle Luis 2 Sensor Kit See Rx Instructions .ROUTE .MEDSUPPLY Qty: 6 3RF Rx Instructions: As directed (DME) fore arm cuff crutches See Rx Instructions .Route .MEDSUPPLY Qty: 1 0RF Rx Instructions: dispense 1 pair nicotine (polacrilex) [Nicorette] 2 mg lozenge 2 mg buccal Q6H PRN (Reason: nicotine cravings) Qty: 108 1RF insulin lispro [Humalog KwikPen Insulin] 100 unit/mL insulin pen 1 sliding scale dose subcut USEASDIRECTD Qty: 15 1RF spironolactone 25 mg tablet 25 mg PO DAILY Qty: 60 1RF Rx Instructions: Trial when taking Lasix BID; take in afternoon with extra lasix dose. (DME) wheel chair seat See Rx Instructions .Route .MEDSUPPLY Hold Instructions: Home Medication placed on hold at Doctor's office Rx Instructions: Replace wheel chair with 4inch padded seat (DME) wheel chair maintence 0 .Route .MEDSUPPLY Hold Instructions: Home Medication placed on hold at Doctor's office (DME) Wheelchair Maintenance See Rx Instructions .Route .MEDSUPPLY Qty: 1 0RF Rx Instructions: As directed to maintain safe transportation (DME) Wheelchair Seat 4 See Rx Instructions .Route .MEDSUPPLY Qty: 1 0RF Rx Instructions: Replace wheel chair with 4inch padded seat Medical Decision Making 51-year-old male history of COPD CHF CKD, presents with shortness of breath cough lower body edema, edema limited to area of scrotum, no erythema crepitus or bulla, patient has bilateral below the knee amputations, likely component of CHF exacerbation versus COPD exacerbation, must also consider viral respiratory pneumonia versus ACS versus less likely PE. Screening labs imaging nebulizer for cough and wheeze, Lasix for edema. Disposition pending results and reassessment 19: 27 patient feeling much better after breathing treatment still with a slight dry cough, likely component of both CHF and COPD, elevated troponin no active chest pain, will trend troponin, if stable or downtrending consider keeping here at [facility] for diuresis otherwise will contact [facility] for possible transfer for cardiology evaluation. 21: 04 patient hemodynamically stable troponin downtrending. Will be admitted for further diuresis and cardiac monitoring. HPI General Date/Time Provider Initiated Documentation: 12/14/21 16:20 . HPI Narrative: 51-year-old male history of CHF CKD COPD presents with lower body edema shortness of breath cough. Denies fevers chills chest pain nausea or vomiting Related Data Home Medications Medication Instructions Recorded Confirmed pseudoephedrine HCl 240 mg 240 mg PO DAILY PRN 04/02/20 12/14/21 tablet,extended release 24 hr tramadol 100 mg tablet,extended 100 mg PO DAILY #10 tabs 07/16/20 12/14/21 release 24 hr Amputation Compression Sleeve #1 ea 01/26/21 12/14/21 ascorbic acid (vitamin C) 1,000 mg 1 g PO Q6H #90 tabs 03/05/21 12/14/21 tablet aspirin 81 mg tablet,delayed 81 mg PO DAILY #90 tabs 03/05/21 12/14/21 release atorvastatin 10 mg tablet 10 mg PO DAILY #90 tabs 03/05/21 12/14/21 azelastine 137 mcg (0.1 %) nasal See Rx Instructions intranasal BID 03/05/21 12/14/21 spray aerosol #30 mL carvedilol 12.5 mg tablet 12.5 mg PO BID #180 tabs 03/05/21 12/14/21 cetirizine 10 mg tablet 10 mg PO DAILY #90 tabs 03/05/21 12/14/21 cholecalciferol (vitamin D3) 25 25 mcg PO DAILY #90 caps 03/05/21 12/14/21 mcg (1,000 unit) capsule cyanocobalamin (vitamin B-12) 1,000 mcg PO DAILY #90 caps 03/05/21 12/14/21 1,000 mcg capsule dupilumab 200 mg/1.14 mL 200 mg (1.14 mL) subcut Q2W #2.28 03/05/21 12/14/21 subcutaneous syringe (Syncplicity) mL flash glucose scanning reader #1 ea 03/05/21 12/14/21 (FreeContent Savvy Luis 2 Baird) fluticasone 250 mcg-salmeterol 50 1 inh inhalation BID #60 ea 03/05/21 12/14/21 mcg/dose blistr powdr for inhalation (Advair Diskus) fluticasone propionate 50 1 spray intranasal DAILY #16 grams 03/05/21 12/14/21 mcg/actuation nasal spray,suspension (Allergy Relief (fluticasone)) furosemide 40 mg tablet 40 mg PO DAILY #90 tabs 03/05/21 12/14/21 halobetasol propionate 0.05 % 1 applic topical DAILY PRN 03/05/21 12/14/21 topical cream psoriasis #50 grams ibuprofen 800 mg tablet 800 mg PO Q8H PRN pain #30 tabs 03/05/21 12/14/21 lisinopril 10 mg tablet 10 mg PO DAILY #90 tabs 03/05/21 12/14/21 magnesium oxide 500 mg tablet 500 mg PO DAILY #90 tabs 03/05/21 12/14/21 omeprazole 20 mg capsule,delayed 20 mg PO DAILY #90 caps 03/05/21 12/14/21 release silver sulfadiazine 1 % topical 1 applic topical BID #400 grams 03/05/21 12/14/21 cream insulin lispro 100 unit/mL 1 sliding scale dose subcut 03/09/21 12/14/21 subcutaneous solution USEASDIRECTD #10 mL flash glucose sensor (FreeStyle #6 ea 04/17/21 12/14/21 Luis 2 Sensor kit) fore arm cuff crutches #1 ea 06/07/21 12/14/21 nicotine (polacrilex) 2 mg buccal 2 mg buccal Q6H PRN nicotine 06/16/21 12/14/21 lozenge (Nicorette) cravings #108 ea clobetasol 0.05 % topical spray 1 applic topical BID 1 week #59 mL 08/09/21 12/14/21 clmqxcwl-tewudbhmf-hyszkytcy 3.5 4 drp otic (ear) QID #10 mL 08/09/21 12/14/21 mg/mL-10,000 unit/mL-1 % ear solution albuterol sulfate 90 mcg/actuation 2 puff inhalation Q6H PRN 08/18/21 12/14/21 aerosol inhaler cyclobenzaprine 10 mg tablet 10 mg PO BID PRN muscle spasm #30 09/04/21 12/14/21 tabs diazepam 5 mg tablet (Valium) 5 mg PO QHS PRN sleep #7 tabs 09/04/21 12/14/21 insulin lispro 100 unit/mL 1 sliding scale dose subcut 10/27/21 12/14/21 subcutaneous pen (Humalog KwikPen USEASDIRECTD DM, E11.8 .. to jeep (U-100) Insulin) A1C < 7.5 #15 mL spironolactone 25 mg tablet 25 mg PO DAILY #60 tabs 11/23/21 12/14/21 insulin glargine 100 unit/mL (3 30 unit subcut QPM 12/04/21 12/14/21 mL) subcutaneous pen (Lantus Solostar U-100 Insulin) Left Outer Sleeve #1 ea 12/07/21 12/14/21 RIGHT Prosthesis Adjustments #1 ea 12/07/21 12/14/21 dapagliflozin 5 mg tablet (Arias) 5 mg PO DAILY T 2 DM not at goal, 12/07/21 12/14/21 stage 3 CKD #90 tabs wheel chair maintence 12/07/21 12/14/21 wheel chair seat 12/07/21 12/14/21 Wheelchair Maintenance #1 ea 12/13/21 12/14/21 Wheelchair Seat #1 ea 12/13/21 12/14/21 Previous Rx's Medication Instructions Recorded tramadol 100 mg tablet,extended 100 mg PO DAILY #10 tabs 07/16/20 release 24 hr Amputation Compression Sleeve #1 ea 01/26/21 ascorbic acid (vitamin C) 1,000 mg 1 g PO Q6H #90 tabs 03/05/21 tablet aspirin 81 mg tablet,delayed 81 mg PO DAILY #90 tabs 03/05/21 release atorvastatin 10 mg tablet 10 mg PO DAILY #90 tabs 03/05/21 azelastine 137 mcg (0.1 %) nasal See Rx Instructions intranasal BID 03/05/21 spray aerosol #30 mL carvedilol 12.5 mg tablet 12.5 mg PO BID #180 tabs 03/05/21 cetirizine 10 mg tablet 10 mg PO DAILY #90 tabs 03/05/21 cholecalciferol (vitamin D3) 25 25 mcg PO DAILY #90 caps 03/05/21 mcg (1,000 unit) capsule cyanocobalamin (vitamin B-12) 1,000 mcg PO DAILY #90 caps 03/05/21 1,000 mcg capsule dupilumab 200 mg/1.14 mL 200 mg (1.14 mL) subcut Q2W #2.28 03/05/21 subcutaneous syringe (Dupixent) mL flash glucose scanning reader #1 ea 03/05/21 (FreeStyle Luis 2 Baird) fluticasone 250 mcg-salmeterol 50 1 inh inhalation BID #60 ea 03/05/21 mcg/dose blistr powdr for inhalation (Advair Diskus) fluticasone propionate 50 1 spray intranasal DAILY #16 grams 03/05/21 mcg/actuation nasal spray,suspension (Allergy Relief (fluticasone)) furosemide 40 mg tablet 40 mg PO DAILY #90 tabs 03/05/21 halobetasol propionate 0.05 % 1 applic topical DAILY PRN 03/05/21 topical cream psoriasis #50 grams ibuprofen 800 mg tablet 800 mg PO Q8H PRN pain #30 tabs 03/05/21 lisinopril 10 mg tablet 10 mg PO DAILY #90 tabs 03/05/21 magnesium oxide 500 mg tablet 500 mg PO DAILY #90 tabs 03/05/21 omeprazole 20 mg capsule,delayed 20 mg PO DAILY #90 caps 03/05/21 release silver sulfadiazine 1 % topical 1 applic topical BID #400 grams 03/05/21 cream insulin lispro 100 unit/mL 1 sliding scale dose subcut 03/09/21 subcutaneous solution USEASDIRECTD #10 mL flash glucose sensor (FreeStyle #6 ea 04/17/21 Luis 2 Sensor kit) fore arm cuff crutches #1 ea 06/07/21 nicotine (polacrilex) 2 mg buccal 2 mg buccal Q6H PRN nicotine 06/16/21 lozenge (Nicorette) cravings #108 ea clobetasol 0.05 % topical spray 1 applic topical BID 1 week #59 mL 08/09/21 alnmibxd-lplcdhrzz-ludvxpwwv 3.5 4 drp otic (ear) QID #10 mL 08/09/21 mg/mL-10,000 unit/mL-1 % ear solution cyclobenzaprine 10 mg tablet 10 mg PO BID PRN muscle spasm #30 09/04/21 tabs diazepam 5 mg tablet (Valium) 5 mg PO QHS PRN sleep #7 tabs 09/04/21 insulin lispro 100 unit/mL 1 sliding scale dose subcut 10/27/21 subcutaneous pen (Humalog Sanchez USEASDIRECTD DM, E11.8 .. to jeep (U-100) Insulin) A1C < 7.5 #15 mL spironolactone 25 mg tablet 25 mg PO DAILY #60 tabs 11/23/21 Left Outer Sleeve #1 ea 12/07/21 RIGHT Prosthesis Adjustments #1 ea 12/07/21 dapagliflozin 5 mg tablet (Farxiga) 5 mg PO DAILY T 2 DM not at goal, 12/07/21 stage 3 CKD #90 tabs Wheelchair Maintenance #1 ea 12/13/21 Wheelchair Seat #1 ea 12/13/21 Allergies Allergy/AdvReac Type Severity Reaction Status Date / Time No Known Allergies Allergy Verified 12/14/21 16:18 General Stated Complaint: SOB RAMON: 3 Review of Systems Narrative: Review of Systems Constitutional: negative Eyes: negative ENT: negative Cardiovascular: Edema Respiratory: Shortness of breath, cough Gastrointestinal: negative : negative Musculoskeletal: negative Skin: negative Neurologic: negative Psych: negative PFSH All Active Problems (Updated 12/14/21 @ 21:05 by Irineo Cooley MD) CHF exacerbation (Acute) COPD exacerbation (Acute) Elevated brain natriuretic peptide (BNP) level (Acute) thought to be near baseline, but unclear Hx Edema (Acute) Edema of abdomen (Acute) Fluid overload (Acute) 2' inactivity, diet, renal insufficiency, hyperglycemia Chronic systolic CHF (congestive heart failure) (Acute) 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 Elevated in 2020 2' Inf/ABx/HyperGly .. [ ] re-check 03/2021! Hypertension associated with diabetes (Acute) Diabetes mellitus with complication in adult patient (Acute) Renal insufficiency (Chronic) Hyperglycemia due to diabetes mellitus (Acute) Chronic posttraumatic stress disorder (Acute) Neck pain (Acute) acute .. due to sleeping on sofa?? coughing? History of anemia (Chronic) History of posttraumatic stress disorder (PTSD) (Acute) Long Hx, Restarted with counselor, Madison Harris. 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 Working with [employer] re: prosthetics.. Hx of right BKA (Acute) Decreased range of motion (ROM) of right knee (Acute) Flexion ok; Extension is difficult .. Continues to work with PT Amputee, below knee (Acute) Rt, November 2020. Lft, 2017 (?) GERD (gastroesophageal reflux disease) (Chronic) PPI COPD (chronic obstructive pulmonary disease) (Chronic) Hx smoker (~10pkyr), PFTs (04/17/21). Disability examination (Acute) PFTs, 04/2021 for Disability 2' COPD. Housing or economic problem (Acute) Carpal tunnel syndrome of left wrist (Acute) Cubital bursitis of right elbow (Acute) Type 2 diabetes mellitus with diabetic polyneuropathy (Acute) Persistent proteinuria associated with type 2 diabetes mellitus (Acute) Cervical neuropathy (Acute) Tendonitis of long head of biceps brachii of right shoulder (Acute) Bursitis of right shoulder (Acute) Right shoulder pain (Acute) Acute on chronic issue: now with elbow and hand pain (ulnar), with tingling. Nasal polyp (Acute) Pt report based on past ENT 06/02/[address] Haque - surgical correction planned Allergic rhinitis due to allergen (Acute) Nasal turbinate hypertrophy (Acute) Other chronic sinusitis (Acute) Deviated nasal septum (Acute) Seasonal allergies (Acute) Corneal opacification (Acute) OS Proliferative retinopathy of both eyes (Acute) Full PRP OD ICD (implantable cardioverter-defibrillator) in place (Acute) ICD, single lead, Medtronic Visia 04/27/2018 [place], [place] Vitamin D deficiency (Acute) Erectile dysfunction (Acute) Testicular cancer (Acute) Secondary hyperparathyroidism (Acute) Medical History (Updated 12/14/21 @ 21:05 by Irineo Cooley MD) Diabetic foot ulcer associated with type 2 diabetes mellitus RESOLVED with amputation. 09/30/20-R heel w/cellulitis-Dr Kevin,[place] 10/16/20 Debridement by Podiatry 10[place]30[place] [facility] [place] Heel Ulcer - cont close wound care by Podiatry Finger pain, left Could this be gout? No injury. Trial Naproxen. Hx: recurrent pneumonia walking pneumonia most vines x 3 years Nasal polyps Psoriasis Surgical History History of amputation of great toe Right History of amputation of left lower extremity History of cardiac defibrillator placement History of cataract removal with insertion of prosthetic lens (~03/02/18) Right History of cystoscopy (~12/25/13) History of gastric bypass (~07/01/14) History of orchiectomy, unilateral (~06/1999) Right History of tonsillectomy (~1979) 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 Family History Mother Diabetes Father Diabetes Heart disease Hypertension Sister Diabetes Brother Diabetes Brother Diabetes Heart disease Hypertension Social History Smoking/Tobacco Use Status: Former Tobacco Use Quit Date: 07/18/98 Tobacco: How many years used: 10 Smoking risk assessment performed?: Yes Alcohol Intake: current Alcohol Intake frequency: 0-2 drinks per day Alcohol type: hard liquor Drug use: Never Substance use type: does not use Adopted: No Caregiver/Support person: No Foster care: No Household members: significant other Housing: house Do you need help understanding health information?: Rarely current occupation: Unemployed Sexually active: Yes Do you think of yourself as: straight/heterosexual Current gender identity: male Do you feel safe at home: Yes Do you feel safe in your relationship?: Yes Exam Narrative Exam Narrative: Physical Examination General: alert, awake, cooperative, resting comfortably, no acute distress mildly uncomfortable HEENT: normocephalic, atraumatic; PERRL, EOM intact, conjunctiva normal; no nasal discharge; moist mucous membranes, oral and pharyngeal mucosa normal, tolerating secretions Neck: supple, trachea midline; full ROM Chest: normal to inspection Respiratory: normal respiratory effort, speaking in full sentences, slight expiratory wheeze right lung field Cardiac: regular rate, regular rhythm, S1S2 intact, no murmurs rubs or gallops GI: abdomen soft, non-tender, non-distended; no palpable mass or hepatosplenomegaly : Edema to scrotum not erythematous no fluctuance no crepitus no bulla Skin: no lesions, rashes or trauma appreciated Neuro: AAOx3, normal speech Extremities: Bilateral below the knee amputation Psych: Appropriate mood and affect Course Vital Signs Vital signs: Vital Signs Temperature 36.3 C L 12/14/21 16:12 Pulse 101 H 12/14/21 16:12 Respiratory Rate 24 12/14/21 16:12 Blood Pressure 147/92 H 12/14/21 16:12 Pulse Oximetry 94 12/14/21 16:12 Temperature 36.3 C L 12/14/21 16:12 Temperature Source Temporal Artery Scan 12/14/21 16:12 Pulse 93 H 12/14/21 16:32 Pulse 97 H 12/14/21 16:26 Respiratory Rate 16 12/14/21 16:38 Respiratory Effort 12/14/21 16:38 Respiratory Depth Normal 12/14/21 16:38 Respiratory Pattern Normal 12/14/21 16:38 Blood Pressure 150/95 H 12/14/21 16:32 Blood Pressure Mean 108 12/14/21 16:32 Blood Pressure Position Sitting 12/14/21 16:12 Pulse Oximetry 95 12/14/21 16:32 Oxygen Delivery Method Room Air 12/14/21 16:12 Oxygen Flow Rate 0 12/14/21 16:12 Pain Level 0 12/14/21 16:12 Lab/Test Results Lab/Test Results: Laboratory Tests Range/Units 12/14/21 12/14/21 12/14/21 17:00 17:00 17:00 WBC (4.4-10.8) 10^3/uL 7.47 RBC (4.36-5.78) 10^6/uL 4.64 Hgb (13.5-17.5) g/dL 13.2 L Hct (40.0-50.0) % 42.9 MCV (80-95) fL 93 MCH (27.0-33.0) pg 28.4 MCHC (32.0-36.0) % 30.8 L RDW (11.8-14.1) % 15.3 H Plt Count (130-400) 10^3/uL 197 MPV (8.0-11.0) fL 10.6 Immature Gran % 0.3 Neutrophils % 75.4 Lymphocytes % 8.7 Monocytes % 12.6 Eosinophils % 2.5 Basophils % 0.5 Nucleated RBC % (0.0-0.3) % 0.0 Absolute Neutrophils (1.2-6.7) 10^3/uL 5.63 Absolute Lymphocytes (1.2-3.4) 10^3/uL 0.65 L Absolute Monocytes (0.1-0.8) 10^3/uL 0.94 H Absolute Eosinophils (0.0-0.7) 10^3/uL 0.19 Absolute Basophils (0.0-0.2) 10^3/uL 0.04 PT (9.3-11.0) sec 11.6 H INR (0.9-1.1) 1.2 H APTT (21.0-27.5) sec 24.9 Sodium (136-145) mmol/L 140 Potassium (3.5-5.1) mmol/L 4.2 Chloride (98-107) mmol/L 104 Carbon Dioxide (21.0-32.0) mmol/L 28.1 Anion Gap (3-11) mmol/L 7.9 BUN (7-18) mg/dL 43 H Creatinine (0.70-1.30) mg/dL 2.5 H Estimated GFR/1.73 m2 (mL/min/1.73m2) 27.36 Glucose (74-106) mg/dL 127 H Calcium (8.5-10.1) mg/dL 8.4 L Total Bilirubin (0.2-1.0) mg/dL 0.5 AST (15-37) U/L 27 ALT (16-63) U/L 15 L Alkaline Phosphatase (46-116) U/L 117 H Troponin I (<or=60) ng/L 732 H* NT-Pro-B Natriuret Pep (<300) pg/mL 78723 H Total Protein (6.4-8.2) g/dL 6.1 L Albumin (3.4-5.0) g/dL 2.3 L COVID-19 Source SARS-CoV-2 (PCR) (Negative) Influenza Type A (PCR) (Negative) Influenza Type B (PCR) (Negative) RSV (PCR) (Negative) Range/Units 12/14/21 17:03 WBC (4.4-10.8) 10^3/uL RBC (4.36-5.78) 10^6/uL Hgb (13.5-17.5) g/dL Hct (40.0-50.0) % MCV (80-95) fL MCH (27.0-33.0) pg MCHC (32.0-36.0) % RDW (11.8-14.1) % Plt Count (130-400) 10^3/uL MPV (8.0-11.0) fL Immature Gran % Neutrophils % Lymphocytes % Monocytes % Eosinophils % Basophils % Nucleated RBC % (0.0-0.3) % Absolute Neutrophils (1.2-6.7) 10^3/uL Absolute Lymphocytes (1.2-3.4) 10^3/uL Absolute Monocytes (0.1-0.8) 10^3/uL Absolute Eosinophils (0.0-0.7) 10^3/uL Absolute Basophils (0.0-0.2) 10^3/uL PT (9.3-11.0) sec INR (0.9-1.1) APTT (21.0-27.5) sec Sodium (136-145) mmol/L Potassium (3.5-5.1) mmol/L Chloride (98-107) mmol/L Carbon Dioxide (21.0-32.0) mmol/L Anion Gap (3-11) mmol/L BUN (7-18) mg/dL Creatinine (0.70-1.30) mg/dL Estimated GFR/1.73 m2 (mL/min/1.73m2) Glucose (74-106) mg/dL Calcium (8.5-10.1) mg/dL Total Bilirubin (0.2-1.0) mg/dL AST (15-37) U/L ALT (16-63) U/L Alkaline Phosphatase (46-116) U/L Troponin I (<or=60) ng/L NT-Pro-B Natriuret Pep (<300) pg/mL Total Protein (6.4-8.2) g/dL Albumin (3.4-5.0) g/dL COVID-19 Source Not Applicable SARS-CoV-2 (PCR) (Negative) Negative Influenza Type A (PCR) (Negative) Negative Influenza Type B (PCR) (Negative) Negative RSV (PCR) (Negative) Negative
--- NOTE | 2021-12-14 18:54 | DI.VRAD_ITS ---
PROCEDURE INFORMATION: Exam: XR Chest Exam date and time: 12/14/2021 18:30 Age: 51 years old Clinical indication: Shortness of breath; Prior surgery; Surgery date: 6+ months; Surgery type: Icd 2018; Patient HX: Chf and copd, SOB TECHNIQUE: Imaging protocol: XR of the chest. Views: 1 view. COMPARISON: CR XR CHEST 2V PA LATERAL 08/22/2020 11:20 FINDINGS: Tubes, catheters and devices: Single lead cardiac device in the expected position. Lungs: New patchy interstitial and airspace density right greater than left lung base. No definite vascular congestion for technique and position. No large pleural effusion. Pleural spaces: No pneumothorax. Heart/Mediastinum: No significant cardiomegaly for position and projection. Bones/joints: No acute fracture. IMPRESSION: Bibasilar disease as above is new since prior and may reflect asymmetric interstitial edema, atypical infection, aspiration. Consider follow-up. Dictated and Authenticated by: Nelida Logan MD. Ordering:GRICEL Cabello MD
[2021-12-14 20:44] LABS: Troponin I 691 ng/L (<or=60)
--- NOTE | 2021-12-14 21:52 | HPE_ITS ---
Date of service: 12/14/21 Time of Service: 20:52 Assessment and Plan Assessment and plan (1) CHF exacerbation: Start date: 12/14/21 Status: Acute Assessment and plan: This is a 51-year-old gentleman with advanced disease who had a previous echocardiogram revealing reduced left ventricular ejection fraction and increased PA pressures with morbid obesity presenting with edema and cough with shortness of breath. He also had a slight elevation in his troponin which is trending downward. He does have a history of an AICD but remains a full code. He was admitted with continued IV Lasix treatment and for further evaluation and monitoring of his heart with cardiac monitoring. He appears to be responding to diuresis. Trend labs for electrolytes. (2) COPD exacerbation: Start date: 12/14/21 Status: Acute Assessment and plan: Patient does have COPD exacerbation and will be treated with Solu-Medrol as well as IV doxycycline with the patient having questionable infiltrate on chest x- ray. Follow-up imaging as indicated. There are no focal findings on exam. (3) CKD stage 3 secondary to diabetes: Status: Chronic Assessment and plan: Trend labs for exacerbation as we diurese. Patient is taking oral hydration well. (4) Diabetes mellitus with complication in adult patient: Status: Chronic Assessment and plan: While in the hospital patient will be on glucometer covered with short acting insulin. History of Present Illness History of Present Illness Chief Complaint: Lower extremity edema and scrotal edema with cough Narrative: This is a 51-year-old male patient with a bilateral BKA and diabetic with obesity who presents with cough and increasing edema over his lower trunk as well as scrotal area which is the usual place he has swelling being bilateral amputee. He has shortness of breath but no chest discomfort or chest pain with cough being dry. In the ED he was found to have probable COPD exacerbation with CHF and was given diuretics with good effect. He had an elevated troponin which trended downward and was thought to be not significant for his active presentation. At the time I interviewed the patient he continued with a dry cough but was more comfortable. He was sitting in bed with his head at a 45 degree angle. He offers no further history. 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 See ED review of history. Review of Systems Narrative: 13 point review of systems otherwise unrevealing or stable. PFSH All Active Problems (Updated 05/31/22 @ 17:44 by Tu Johnson) Discharge planning issues (Acute) Dermatitis, unspecified (Acute ~11/2021) 12/07/21 Dermatology Coronary artery disease (Chronic) CHF exacerbation (Acute) COPD exacerbation (Acute) Elevated brain natriuretic peptide (BNP) level (Acute) thought to be near baseline, but unclear Hx Edema (Acute) Edema of abdomen (Acute) Fluid overload (Acute) 2' inactivity, diet, renal insufficiency, hyperglycemia Chronic systolic CHF (congestive heart failure) (Acute) 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 Elevated in 2020 2' Inf/ABx/HyperGly .. [ ] re-check 03/2021! Hypertension associated with diabetes (Acute) Diabetes mellitus with complication in adult patient (Chronic) Renal insufficiency (Chronic) Hyperglycemia due to diabetes mellitus (Acute) Chronic posttraumatic stress disorder (Acute) Neck pain (Acute) acute .. due to sleeping on sofa?? coughing? History of anemia (Chronic) History of posttraumatic stress disorder (PTSD) (Acute) Long Hx, Restarted with counselor, Madison Harris. 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 Working with [employer] re: prosthetics.. Hx of right BKA (Acute) Decreased range of motion (ROM) of right knee (Acute) Flexion ok; Extension is difficult .. Continues to work with PT Amputee, below knee (Chronic) Rt, November 2020. Lft, 2018 (?) GERD (gastroesophageal reflux disease) (Chronic) PPI COPD (chronic obstructive pulmonary disease) (Chronic) Hx smoker (~10pkyr), PFTs (04/17/21). Disability examination (Acute) PFTs, 04/2021 for Disability 2' COPD. Housing or economic problem (Acute) Carpal tunnel syndrome of left wrist (Acute) Cubital bursitis of right elbow (Acute) Type 2 diabetes mellitus with diabetic polyneuropathy (Acute) Persistent proteinuria associated with type 2 diabetes mellitus (Acute) Cervical neuropathy (Acute) Tendonitis of long head of biceps brachii of right shoulder (Acute) Bursitis of right shoulder (Acute) Right shoulder pain (Acute) Acute on chronic issue: now with elbow and hand pain (ulnar), with tingling. Nasal polyp (Acute) Pt report based on past ENT 06/02/[address] Haque - surgical correction planned Allergic rhinitis due to allergen (Acute) Nasal turbinate hypertrophy (Acute) Other chronic sinusitis (Acute) Deviated nasal septum (Acute) Seasonal allergies (Acute) Corneal opacification (Acute) OS Proliferative retinopathy of both eyes (Acute) Full PRP OD ICD (implantable cardioverter-defibrillator) in place (Acute) ICD, single lead, [employer] Visia 04/27/2018 [place], [place] Vitamin D deficiency (Acute) Erectile dysfunction (Acute) Testicular cancer (Acute) Secondary hyperparathyroidism (Acute) Medical History Diabetic foot ulcer associated with type 2 diabetes mellitus RESOLVED with amputation. 09/30/20-R heel w/cellulitis-Dr Kevin,DPM 10/16/20 Debridement by Podiatry 10/30/20 [facility] - RIGHT Heel Ulcer - cont close wound care by Podiatry Finger pain, left Could this be gout? No injury. Trial Naproxen. Hx: recurrent pneumonia walking pneumonia most vines x 3 years Nasal polyps Psoriasis Surgical History History of amputation of great toe Right History of amputation of left lower extremity History of cardiac defibrillator placement History of cataract removal with insertion of prosthetic lens (~03/02/18) Right History of cystoscopy (~12/25/13) History of gastric bypass (~07/01/14) History of orchiectomy, unilateral (~06/1999) Right History of tonsillectomy (~1979) 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 Family History Mother Diabetes Father Diabetes Heart disease Hypertension Sister Diabetes Brother Diabetes Brother Diabetes Heart disease Hypertension Social History Smoking/Tobacco Use Status: Former Tobacco Use Quit Date: 07/18/98 Tobacco: How many years used: 10 Smoking risk assessment performed?: Yes Alcohol Intake: current Alcohol Intake frequency: 0-2 drinks per day Alcohol type: hard liquor Drug use: Never Substance use type: does not use Adopted: No Caregiver/Support person: No Foster care: No Household members: significant other Housing: house Do you need help understanding health information?: Rarely current occupation: Unemployed Sexually active: Yes Do you think of yourself as: straight/heterosexual Current gender identity: male Do you feel safe at home: Yes Do you feel safe in your relationship?: Yes Meds Allergies and Home Medications Allergies Allergy/AdvReac Type Severity Reaction Status Date / Time No Known Allergies Allergy Verified 12/14/21 16:18 Home Medications Medication Instructions Recorded Confirmed Type pseudoephedrine HCl 240 mg 240 mg PO DAILY PRN 04/02/20 12/14/21 History tablet,extended release 24 hr tramadol 100 mg tablet,extended 100 mg PO DAILY #10 tabs 07/16/20 12/14/21 Rx release 24 hr Amputation Compression Sleeve #1 ea 01/26/21 12/14/21 Rx ascorbic acid (vitamin C) 1,000 mg 1 g PO Q6H #90 tabs 03/05/21 12/14/21 Rx tablet aspirin 81 mg tablet,delayed 81 mg PO DAILY #90 tabs 03/05/21 12/14/21 Rx release atorvastatin 10 mg tablet 10 mg PO DAILY #90 tabs 03/05/21 12/14/21 Rx azelastine 137 mcg (0.1 %) nasal See Rx Instructions intranasal BID 03/05/21 12/14/21 Rx spray aerosol #30 mL carvedilol 12.5 mg tablet 12.5 mg PO BID #180 tabs 03/05/21 12/14/21 Rx cetirizine 10 mg tablet 10 mg PO DAILY #90 tabs 03/05/21 12/14/21 Rx cholecalciferol (vitamin D3) 25 25 mcg PO DAILY #90 caps 03/05/21 12/14/21 Rx mcg (1,000 unit) capsule cyanocobalamin (vitamin B-12) 1,000 mcg PO DAILY #90 caps 03/05/21 12/14/21 Rx 1,000 mcg capsule dupilumab 200 mg/1.14 mL 200 mg (1.14 mL) subcut Q2W #2.28 03/05/21 12/14/21 Rx subcutaneous syringe (Dupixent) mL flash glucose scanning reader #1 ea 03/05/21 12/14/21 Rx ([employer]) fluticasone 250 mcg-salmeterol 50 1 inh inhalation BID #60 ea 03/05/21 12/14/21 Rx mcg/dose blistr powdr for inhalation (Advair Diskus) fluticasone propionate 50 1 spray intranasal DAILY #16 grams 03/05/21 12/14/21 Rx mcg/actuation nasal spray,suspension (Allergy Relief (fluticasone)) furosemide 40 mg tablet 40 mg PO DAILY #90 tabs 03/05/21 12/14/21 Rx halobetasol propionate 0.05 % 1 applic topical DAILY PRN 03/05/21 12/14/21 Rx topical cream psoriasis #50 grams ibuprofen 800 mg tablet 800 mg PO Q8H PRN pain #30 tabs 03/05/21 12/14/21 Rx lisinopril 10 mg tablet 10 mg PO DAILY #90 tabs 03/05/21 12/14/21 Rx magnesium oxide 500 mg tablet 500 mg PO DAILY #90 tabs 03/05/21 12/14/21 Rx omeprazole 20 mg capsule,delayed 20 mg PO DAILY #90 caps 03/05/21 12/14/21 Rx release silver sulfadiazine 1 % topical 1 applic topical BID #400 grams 03/05/21 12/14/21 Rx cream insulin lispro 100 unit/mL 1 sliding scale dose subcut 03/09/21 12/14/21 Rx subcutaneous solution USEASDIRECTD #10 mL flash glucose sensor (FreeStyle #6 ea 04/17/21 12/14/21 Rx Luis 2 Sensor kit) fore arm cuff crutches #1 ea 06/07/21 12/14/21 Rx nicotine (polacrilex) 2 mg buccal 2 mg buccal Q6H PRN nicotine 06/16/21 12/14/21 Rx lozenge (Nicorette) cravings #108 ea clobetasol 0.05 % topical spray 1 applic topical BID 1 week #59 mL 08/09/21 12/14/21 Rx mydsvoym-gxgrmnskw-atlesxnri 3.5 4 drp otic (ear) QID #10 mL 08/09/21 12/14/21 Rx mg/mL-10,000 unit/mL-1 % ear solution albuterol sulfate 90 mcg/actuation 2 puff inhalation Q6H PRN 08/18/21 12/14/21 History aerosol inhaler cyclobenzaprine 10 mg tablet 10 mg PO BID PRN muscle spasm #30 09/04/21 12/14/21 Rx tabs diazepam 5 mg tablet (Valium) 5 mg PO QHS PRN sleep #7 tabs 09/04/21 12/14/21 Rx insulin lispro 100 unit/mL 1 sliding scale dose subcut 10/27/21 12/14/21 Rx subcutaneous pen (Humalog KwikPen USEASDIRECTD DM, E11.8 .. to jeep (U-100) Insulin) A1C < 7.5 #15 mL spironolactone 25 mg tablet 25 mg PO DAILY #60 tabs 11/23/21 12/14/21 Rx insulin glargine 100 unit/mL (3 30 unit subcut QPM 12/04/21 12/14/21 History mL) subcutaneous pen (Lantus Solostar U-100 Insulin) Left Outer Sleeve #1 ea 12/07/21 12/14/21 Rx RIGHT Prosthesis Adjustments #1 ea 12/07/21 12/14/21 Rx dapagliflozin 5 mg tablet (Farxiga) 5 mg PO DAILY T 2 DM not at goal, 12/07/21 12/14/21 Rx stage 3 CKD #90 tabs wheel chair maintence 12/07/21 12/14/21 History wheel chair seat 12/07/21 12/14/21 History Wheelchair Maintenance #1 ea 12/13/21 12/14/21 Rx Wheelchair Seat #1 ea 12/13/21 12/14/21 Rx halobetasol propionate 0.05 % 1 applic topical DAILY 12/15/21 History topical cream Exam Narrative Exam Narrative: General: Patient appears older than stated age, moderate distress with cough but not with dyspnea speaking in short sentences. He is alert and oriented obese to person and place. Morbidly obese. He is a bilateral BKA. HEENT: Normocephalic, coarsened facial features, eyes with pupils equal and re active to light symmetrically, extraocular movement intact and sclera anicteric. Oropharynx with dry mucosa. Neck: Supple without JVD. Back: Stooped posture without CVA tenderness. Lungs: Bronchovesicular breath sounds diffusely with coarse inspiratory crackles nonfocal IV occasional rhonchi with cough. No dullness to percussion. Heart: Regular rate and rhythm with no appreciable murmur or gallop. Abdomen: Obese contour, soft and nontender to palpation with no palpable hepatosplenomegaly. Mild pannus. Genitalia/rectal: Scrotum slightly swollen otherwise exam deferred. Extremities: Bilateral BKA without swelling over his stump and no skin breakdown noticed. Good cap refill and peripheral pulses intact over upper extremities. No clubbing or cyanosis. Skin: Moist, warm and normal color. No rashes noted. Neuro: Cranial nerves II through XII grossly intact, no focal motor deficits. Psych: Flattened affect with depressed mood, no abnormal thought processes. Remote and recent memory intact. Results Imaging Imaging Studies: EXAM:? XR PORTABLE CHEST AP CLINICAL HISTORY: ? chf and copd, sob. ? TECHNIQUE:? 2D digital imaging was performed. COMPARISON:? CR XR CHEST 2V PA ? LATERAL from 08/22/2020 FINDINGS: Single AP portable view. Left unipolar subclavian pacemaker noted with distal lead in the right ventricle Heart size unchanged.? The mediastinum is not widened. There is patchy infiltrate in the right lung base.? No obvious pleural effusions.? No pulmonary edema IMPRESSION: Right lung base infiltrate.? Appropriate follow-up recommended. EXAM: Comprehensive 2D, Doppler, and color-flow Echocardiogram Patient Location: In-Patient Room/Bed:? [facility] Director Summer Sessions: Anjana Downs RDCS (AE) Indications: NSTEMI, AICD Other Information Study Quality: Poor. Technically limited study due to body habitus, inability to position patient exam done supine bedside.. Conclusion Technically limited study Left ventricle is moderately dilated.? There is borderline left ventricular hypertrophy.? Estimated ejection fraction is 25 to 30% with severe global hypokinesis Right ventricle appears moderately enlarged with a device lead noted The left atrium is moderately dilated.? The right atrium is not well visualized Trileaflet aortic valve without stenosis or regurgitation Mitral annular calcification.? Trace mitral regurgitation Normal tricuspid valve with trace regurgitation.? Estimated right ventricular systolic pressure is 66 mmHg Labs Result diagrams: 12/15/21 06:15 12/15/21 06:15 Labs: Laboratory Results - last 24 hr 12/14/21 12/14/21 12/14/21 17:00 17:00 17:00 WBC 7.47 RBC 4.64 Hgb 13.2 L Hct 42.9 MCV 93 MCH 28.4 MCHC 30.8 L RDW 15.3 H Plt Count 197 MPV 10.6 Immature Gran % 0.3 Neutrophils % 75.4 Lymphocytes % 8.7 Monocytes % 12.6 Eosinophils % 2.5 Basophils % 0.5 Nucleated RBC % 0.0 Absolute Neutrophils 5.63 Absolute Lymphocytes 0.65 L Absolute Monocytes 0.94 H Absolute Eosinophils 0.19 Absolute Basophils 0.04 PT 11.6 H INR 1.2 H APTT 24.9 Sodium 140 Potassium 4.2 Chloride 104 Carbon Dioxide 28.1 Anion Gap 7.9 BUN 43 H Creatinine 2.5 H Estimated GFR/1.73 m2 27.36 Glucose 127 H Calcium 8.4 L Total Bilirubin 0.5 AST 27 ALT 15 L Alkaline Phosphatase 117 H Troponin I 732 H* NT-Pro-B Natriuret Pep 51207 H Total Protein 6.1 L Albumin 2.3 L COVID-19 Source SARS-CoV-2 (PCR) Influenza Type A (PCR) Influenza Type B (PCR) RSV (PCR) 12/14/21 12/14/21 17:03 20:20 WBC RBC Hgb Hct MCV MCH MCHC RDW Plt Count MPV Immature Gran % Neutrophils % Lymphocytes % Monocytes % Eosinophils % Basophils % Nucleated RBC % Absolute Neutrophils Absolute Lymphocytes Absolute Monocytes Absolute Eosinophils Absolute Basophils PT INR APTT Sodium Potassium Chloride Carbon Dioxide Anion Gap BUN Creatinine Estimated GFR/1.73 m2 Glucose Calcium Total Bilirubin AST ALT Alkaline Phosphatase Troponin I 691 H* NT-Pro-B Natriuret Pep Total Protein Albumin COVID-19 Source Not Applicable SARS-CoV-2 (PCR) Negative Influenza Type A (PCR) Negative Influenza Type B (PCR) Negative RSV (PCR) Negative Last Vital Signs Temp 37.0 C 12/14/21 21:49 Pulse 75 12/14/21 21:49 Resp 18 12/14/21 21:49 BP 168/80 H 12/14/21 21:49 Pulse Ox 95 12/14/21 21:49
[2021-12-14] MEDS: Enoxaparin 30 MG/0.3 ML SYR SC (23:59)
[2021-12-14] MEDS: methylPREDNISolone SUCC 125 MG VIAL 80 MG IVP (23:59)
[2021-12-15] VITALS (14 sets, daily range): BP systolic 125–160; BP diastolic 70–98; PULSE 82–103; RESP 1–18; TEMP 36.3–37.4; O2SAT 88–93
--- NOTE | 2021-12-15 | DI.US_ITS ---
APPROVED REPORT EXAM: Comprehensive 2D, Doppler, and color-flow Echocardiogram Patient Location: In-Patient Room/Bed: 214 Director Of Event Marketing: Anjana Downs RDCS (AE) Indications: NSTEMI, AICD Other Information Study Quality: Poor. Technically limited study due to body habitus, inability to position patient exa m done supine bedside.. Conclusion Technically limited study Left ventricle is moderately dilated. There is borderline left ventricular hypertrophy. Estimated e jection fraction is 25 to 30% with severe global hypokinesis Right ventricle appears moderately enlarged with a device lead noted The left atrium is moderately dilated. The right atrium is not well visualized Trileaflet aortic valve without stenosis or regurgitation Mitral annular calcification. Trace mitral regurgitation Normal tricuspid valve with trace regurgitation. Estimated right ventricular systolic pressure is 66 mmHg Wall motion Left Ventricle Left ventricle is moderate to severely dilated. Left ventricular systolic function is severely decrea sed. Borderline concentric left ventricular hypertrophy. There is global hypokinesis of the left vent ricle. There is no ventricular septal defect visualized. LVEF is 28%. Right Ventricle Right ventricle is moderately dilated. Right ventricular systolic function could not be assessed. The RVSP is 66.2mmHg. Device lead is present in the right ventricle. Atria Left atrium is moderately dilated. Right atrium is not well visualized. The interatrial septum is int act with no evidence for an atrial septal defect. Aortic Valve The aortic valve is normal in structure. Aortic valve is trileaflet. There is no aortic valvular sten osis. No aortic regurgitation is present. Mitral Valve Mild to moderate mitral annular calcification. No evidence of mitral valve stenosis. Trace mitral reg urgitation. Tricuspid Valve The tricuspid valve is normal in structure. There is no tricuspid valve stenosis. Trace tricuspid reg urgitation. Pulmonic Valve The pulmonary valve is normal in structure. There is no pulmonic valvular stenosis. Mild pulmonic reg urgitation. Great Vessels The aortic root is normal in size. The ascending aorta is normal in size. Aortic arch is not well vis ualized. The IVC collapses <50% with inspiration. Pericardium There is no pericardial effusion. 2D Dimensions IVSD d PLAX 1.20 cm M: 0.6-1.2 LVPW d PLAX 1.23 cm M: 0.6 - 1.2 LVID d PLAX 6.63 cm M: 4.2 - 5.8 LVDs 5.70 cm M: 2.5 - 4.0 Ao Root d 2.92 cm M: 3.1 - 3.7 Ao Asc Diam d 3.43 cm M: 2.6 - 3.4 LV EF Dimitryichsarabjit 28.2 % FS 13.50 % M-Mode TAPSE 1.43 cm (M/F) >1.7 LV Diastology MV E' medial 0.048 (>0.07 m/s) E/A Ratio 1.5 LV E/e MED 16.05 (<14) MV E Vmax 0.77 (0.4-1.3 m/s) MV E' lateral 0.073 (>0.1 m/s) MV A Vmax 0.50 (0.4-1.3 m/s) LV E/e LAT 10.60 (<14) MV E/A Ratio 1.47 MV E/E' medial 16.05 MV E/E' lateral 10.64 Aortic Valve LVOT Area 3.64 cm2 AoV Area Vmax 2.80 cm2 LVOT Vmax 0.66 m/s AoV Area/ BSA (Vmax) 1.06 cm2/m2 LVOT Mean Yemi. 0.52 m/s ARMANDO Mean Yemi. 2.77 cm2 LVOT Peak Grad 1.7 mmHg ARMANDO Mean Yemi. Index 1.05 cm2/m2 LVOT Mean Grad 1.2 mmHg LVOT VTI 0.149 m LVOT Diam s 2.15 cm AoV Vmax 0.86 m/s Velocity Ratio 0.76 AoV Mean Yemi. 0.68 m/s AoV Peak Grad 3.0 mmHg LVOT SV 54.37 mL AoV Mean Grad 1.9 mmHg AoV VTI 0.191 m AoV Area VTI 2.85 cm2 AoV Area/ BSA (VTI) 1.09 cm/m2 Mitral Valve MV DT 166 (160-240 msec) MV PHT 48 msec MV Area PHT 4.58 cm2 MV VTI 0.244 m MV Area VTI 2.23 (4.0-6.0 cm2) Pulmonary Valve PV Vmax 0.61 (0.5-1.5 m/s) RVOT Peak Gr. 1.16 mmHg PV Peak Grad 1.5 mmHg RVOT Mean Gr. 0.60 mmHg PV Mean Grad 1.0 mmHg RVOT VTI 0.127 m PV VTI 0.146 m RVOT Vmax 0.54 m/s Tricuspid Valve TR Peak Grad 58.1 mmHg TR Vmax 3.81 m/s RA Pressure 8.00 mmHg RVSP (TR) 66.2 mmHg
[2021-12-15] MEDS: DOXYCYCLINE 100 MG in Normal Saline 100 ML IVPB ×3 (00:11→23:16)
[2021-12-15] MEDS: Normal Saline 500 ML 30 ML IV (00:11)
[2021-12-15] MEDS: Ascorbic Acid 500 MG TAB 1000 MG PO ×5 (00:11→23:14)
[2021-12-15] MEDS: Benzonatate 200 MG CAP PO (02:13)
[2021-12-15] MEDS: Albuterol/Ipratropium 3 ML UPD VIAL UPD ×5 (05:54→23:29)
[2021-12-15 06:48] LABS: Abs Immature Grans 0.03 10^3/uL (0.0-0.06); Absolute Basophil Count 0.02 10^3/uL (0.0-0.2); Absolute Eosinophil Count 0.01 10^3/uL (0.0-0.7); Absolute Lymphocyte Count 0.33 10^3/uL (1.2-3.4); Absolute Monocyte Count 0.19 10^3/uL (0.1-0.8); Absolute Neutrophil Count 6.26 10^3/uL (1.2-6.7); Basophils % 0.3; Eosinophils % 0.1; HCT 41.8 % (40.0-50.0); Immature Grans % 0.4; Lymphocytes % 4.8; MCH 28.8 pg (27.0-33.0); MCHC 31.1 % (32.0-36.0); MCV 93 fL (80-95); MPV 10.9 fL (8.0-11.0); Monocytes % 2.8; Neutrophils % 91.6; Platelet Count 200 10^3/uL (130-400); RBC 4.51 10^6/uL (4.36-5.78); RDW 15.6 % (11.8-14.1); RDW-SD 52.7 fL; WBC 6.84 10^3/uL (4.4-10.8)
[2021-12-15 07:17] LABS: ALT 15 U/L (16-63); AST 29 U/L (15-37); Albumin 2.2 g/dL (3.4-5.0); Alkaline Phosphatase 120 U/L (46-116); Anion Gap 10.9 mmol/L (3-11); BUN 46 mg/dL (7-18); Bilirubin, Total 0.4 mg/dL (0.2-1.0); CO2 25.1 mmol/L (21.0-32.0); CREATININE 2.5 mg/dL (0.70-1.30); Calcium 8.1 mg/dL (8.5-10.1); Chloride 102 mmol/L (98-107); Estimated GFR 27.36 (mL/min/1.73m2); Glucose 206 mg/dL (74-106); Potassium 4.6 mmol/L (3.5-5.1); Sodium 138 mmol/L (136-145); Total Protein 6.1 g/dL (6.4-8.2)
[2021-12-15] MEDS: Furosemide 40 MG/4 ML VIAL IVP ×2 (07:55→16:25)
[2021-12-15] MEDS: Magnesium Oxide 400 MG TAB PO (07:56)
[2021-12-15] MEDS: Cyanocobalamin 500 MCG TAB 1000 MCG PO (07:56)
[2021-12-15] MEDS: methylPREDNISolone SUCC 125 MG VIAL 80 MG IVP ×3 (07:56→23:15)
[2021-12-15] MEDS: Cholecalciferol (Vitamin D3) 1,000 UNIT TAB 1000 UNITS PO (07:56)
[2021-12-15] MEDS: Cetirizine 10 MG TAB PO (07:57)
[2021-12-15] MEDS: Atorvastatin 10 MG TAB PO (07:57)
[2021-12-15] MEDS: Aspirin E.C. 81 MG TABEC PO (07:57)
[2021-12-15] MEDS: Omeprazole 20 MG CAPCR PO (07:58)
[2021-12-15] MEDS: Carvedilol 12.5 MG TAB PO ×2 (07:58→21:11)
[2021-12-15] MEDS: Lisinopril 10 MG TAB PO (07:58)
[2021-12-15] MEDS: Normal Saline Flush 10 ML SYR IVP ×5 (08:04→23:15)
[2021-12-15] MEDS: Silver sulfaDIAZINE 1% 25 GM TUBE TP ×2 (08:40→21:12)
--- NOTE | 2021-12-15 09:12 | INITIAL_ITS ---
- If Service Date Differs Date of service: 12/15/21 Time of Service: 09:12 Care Management Initial Assess REASON FOR HOSPITALIZATION:: CHR, COPD exacerbation PAST MEDICAL HISTORY/PAST SURGICAL HISTORY:: All Active Problems (Updated 12/14/21 @ 21:05 by Irineo Cooley MD). CHF exacerbation (Acute). COPD exacerbation (Acute). Elevated brain natriuretic peptide (BNP) level (Acute). thought to be near baseline, but unclear Hx. Edema (Acute). Edema of abdomen (Acute). Fluid overload (Acute). 2' inactivity, diet, renal insufficiency, hyperglycemia. Chronic systolic CHF (congestive heart failure) (Acute). 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 08/2019 Cr 1.74 ... Elevated in 2020 2' Inf/ABx/HyperGly .. [ ] re-check 03/2021! Hypertension associated with diabetes (Acute). Diabetes mellitus with complication in adult patient (Acute). Renal insufficiency (Chronic). Hyperglycemia due to diabetes mellitus (Acute). Chronic posttraumatic stress disorder (Acute). Neck pain (Acute). acute .. due to sleeping on sofa?? coughing? History of anemia (Chronic). History of posttraumatic stress disorder (PTSD) (Acute). Long Hx, Restarted with counselor, Madison Harris. Adjustment reaction to chronic stress (Acute). Social isolation (Acute). Amputee, lower limb (Acute). Double Amputee, 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 Working with [employer] re: prosthetics.. Hx of right BKA (Acute). Decreased range of motion (ROM) of right knee (Acute). Flexion ok; Extension is difficult .. Continues to work with PT. Amputee, below knee (Acute). Rt, November 2020. Lft, 2018 (?). GERD (gastroesophageal reflux disease) (Chronic). PPI. COPD (chronic obstructive pulmonary disease) (Chronic). Hx smoker (~10pkyr), PFTs (04/17/21). Disability examination (Acute). PFTs, 04/2021 for Disability 2' COPD. Housing or economic problem (Acute). Carpal tunnel syndrome of left wrist (Acute). Cubital bursitis of right elbow (Acute). Type 2 diabetes mellitus with diabetic polyneuropathy (Acute). Persistent proteinuria associated with type 2 diabetes mellitus (Acute). Cervical neuropathy (Acute). Tendonitis of long head of biceps brachii of right shoulder (Acute). Bursitis of right shoulder (Acute). Right shoulder pain (Acute). Acute on chronic issue: now with elbow and hand pain (ulnar), with tingling. Nasal polyp (Acute). Pt report based on past ENT. 06/02/[address] Haque - surgical correction planned. Allergic rhinitis due to allergen (Acute). Nasal turbinate hypertrophy (Acute). Other chronic sinusitis (Acute). Deviated nasal septum (Acute). Seasonal allergies (Acute). Corneal opacification (Acute). OS. Proliferative retinopathy of both eyes (Acute). Full PRP OD. ICD (implantable cardioverter-defibrillator) in place (Acute). ICD, single lead, Med[employer] Visia 04/27/2018 [place], [place]. Vitamin D deficiency (Acute). Erectile dysfunction (Acute). Testicular cancer (Acute). Secondary hyperparathyroidism (Acute). Medical History (Updated 12/14/21 @ 21:05 by Irineo Cooley MD). Diabetic foot ulcer associated with type 2 diabetes mellitus. RESOLVED with amputation. 09/30/20-R heel w/cellulitis-Dr Herberth DPM. 10/16/20 Debridement by Podiatry. 10/30/20 [facility] [place] [facility] - RIGHT Heel Ulcer - cont close wound care by Podiatry. Finger pain, left. Could this be gout? No injury. Trial Naproxen. Hx: recurrent pneumonia. walking pneumonia most vines x 3 years. Nasal polyps. Psoriasis. Surgical History . History of amputation of great toe. Right. History of amputation of left lower extremity. History of cardiac defibrillator placement. History of cataract removal with insertion of prosthetic lens (~03/02/18). Right. History of cystoscopy (~12/25/13). History of gastric bypass (~07/01/14). History of orchiectomy, unilateral (~06/1999). Right. History of tonsillectomy (~1979). Hx of right BKA. 11/28/20 PREVIOUS FUNCTIONAL STATUS/SOCIAL/FAMILY SUPPORTS:: Maverick lives in [place], [place] with his partner. He uses a wheelchair, and has prosthetics s/p bilateral LE amputations. Maverick does not drive at this time. He uses [employer] van for transportation. CURRENT FUNCTIONAL STATUS:: Maverick was lying in bed when CM met with him. He was awake, alert, able to engage in conversation somewhat and with out eye contact. ADVANCE DIRECTIVES:: None on file. Has patient been provided with info about the portal/API?: Yes Did the patient sign up for the portal?: Yes (Prior to admission) CODE STATUS:: Full Code INSURANCE COVERAGE / FINANCIAL ISSUES:: Medicaid. Financial Assist 100 CURRENT HOME/COMMUNITY SERVICES/EQUIPMENT:: [employer] van. Wheel Chair, has prosthetic LE. PRIMARY CARE PHYSICIAN:: Candice Deleon PATIENT/FAMILY EDUCATION NEEDS:: Review discharge instructions, limitations, medications and plan to follow up with community providers. ask me three. TRANSPORTATION:: Via [employer]. PLAN:: Maverick requires hospitalization for further medical workup, cardiac and respiratory monitoring and diuresis. Anticipate, Maverick will discharge home with resumption of [facility] services via [employer] when medically ready. He will follow up with his community providers and discharge plan of care as prescribed.
[2021-12-15] MEDS: Insulin Aspart 300 UNITS/3 ML PEN SC ×3 (11:48→21:12)
--- NOTE | 2021-12-15 12:44 | CCONE_ITS ---
Date of service: 12/15/21 Time of Service: 11:44 Assessment and Plan Assessment and plan (1) Chronic systolic CHF (congestive heart failure): Status: Acute Assessment and plan: Patient has decompensated systolic heart failure. He is responding to IV diuretics. I would recommend consideration of changing lisinopril to Entresto but he will need to have his renal function and electrolytes monitored. He is already on Farxiga (2) ICD (implantable cardioverter-defibrillator) in place: Status: Acute Assessment and plan: Followed in clinic as well as remotely (3) Amputee, below knee: Status: Acute (4) Coronary artery disease: Status: Chronic Assessment and plan: I believe the elevated troponin is on the basis of decompensated heart failure. Consider an ischemic evaluation if it would global climate change researcher. See below (5) CKD stage 3 secondary to diabetes: Status: Chronic Assessment and plan: Nephrotoxins should be avoided. These would include iodinated contrast. Monitor renal function if Entresto is initiated History of Present Illness History of Present Illness Chief Complaint: Shortness of breath and swelling Narrative: This is an unfortunate 51-year-old man with multiple medical problems. He has longstanding diabetes and multiple complications including diabetic nephropathy and chronic kidney disease, coronary disease, left ventricular dysfunction, ICD, peripheral arterial disease with bilateral amputations. He reports that a week or so ago he began to note swelling in his lower extremities which was progressive and then he became short of breath at rest. He reports that labs were done through the visiting nurses and after results were obtained he was advised to come to the hospital where he was evaluated and admitted. He has been treated with intravenous diuretics and at present is not short of breath at rest. He denies chest discomfort suggestive of angina The patient's last major hospitalization was about a year ago at [facility] related to sepsis. He had a right below-knee amputation and also previously had a left below-knee amputation echocardiogram at that time reported moderate reduced left ventricular systolic function, EF 33%. The left ventricle was moderately dilated. There was no significant valvular disease there is a remote history of coronary disease. He has not recently had an ischemic evaluation Review of Systems Cardiovascular Cardiovascular: Reports as per HPI, Denies chest pain, Reports leg edema, Reports dyspnea, Reports dyspnea on exertion, Reports orthopnea and Reports paroxysmal nocturnal dyspnea Respiratory Respiratory: Reports dyspnea and Reports dyspnea on exertion PFSH All Active Problems (Updated 12/15/21 @ 12:53 by Yvette Estrada MD) Coronary artery disease (Chronic) CHF exacerbation (Acute) COPD exacerbation (Acute) Elevated brain natriuretic peptide (BNP) level (Acute) thought to be near baseline, but unclear Hx Edema (Acute) Edema of abdomen (Acute) Fluid overload (Acute) 2' inactivity, diet, renal insufficiency, hyperglycemia Chronic systolic CHF (congestive heart failure) (Acute) 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 Elevated in 2020 2' Inf/ABx/HyperGly .. [ ] re-check 03/2021! Hypertension associated with diabetes (Acute) Diabetes mellitus with complication in adult patient (Acute) Renal insufficiency (Chronic) Hyperglycemia due to diabetes mellitus (Acute) Chronic posttraumatic stress disorder (Acute) Neck pain (Acute) acute .. due to sleeping on sofa?? coughing? History of anemia (Chronic) History of posttraumatic stress disorder (PTSD) (Acute) Long Hx, Restarted with counselor, Madison Harris. 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 Working with [employer] re: prosthetics.. Hx of right BKA (Acute) Decreased range of motion (ROM) of right knee (Acute) Flexion ok; Extension is difficult .. Continues to work with PT Amputee, below knee (Acute) Rt, November 2020. Lft, 2018 (?) GERD (gastroesophageal reflux disease) (Chronic) PPI COPD (chronic obstructive pulmonary disease) (Chronic) Hx smoker (~10pkyr), PFTs (04/17/21). Disability examination (Acute) PFTs, 04/2021 for Disability 2' COPD. Housing or economic problem (Acute) Carpal tunnel syndrome of left wrist (Acute) Cubital bursitis of right elbow (Acute) Type 2 diabetes mellitus with diabetic polyneuropathy (Acute) Persistent proteinuria associated with type 2 diabetes mellitus (Acute) Cervical neuropathy (Acute) Tendonitis of long head of biceps brachii of right shoulder (Acute) Bursitis of right shoulder (Acute) Right shoulder pain (Acute) Acute on chronic issue: now with elbow and hand pain (ulnar), with tingling. Nasal polyp (Acute) Pt report based on past ENT 06/02/[address] Haque - surgical correction planned Allergic rhinitis due to allergen (Acute) Nasal turbinate hypertrophy (Acute) Other chronic sinusitis (Acute) Deviated nasal septum (Acute) Seasonal allergies (Acute) Corneal opacification (Acute) OS Proliferative retinopathy of both eyes (Acute) Full PRP OD ICD (implantable cardioverter-defibrillator) in place (Acute) ICD, single lead, Medtr[employer] Visia 04/27/2018 [place], [place] Vitamin D deficiency (Acute) Erectile dysfunction (Acute) Testicular cancer (Acute) Secondary hyperparathyroidism (Acute) Medical History (Updated 12/15/21 @ 12:53 by Yvette Estrada MD) Diabetic foot ulcer associated with type 2 diabetes mellitus RESOLVED with amputation. 09/30/20-R heel w/cellulitis-Dr Kevin,DPDilia 10/16/20 Debridement by Podiatry 10/30/20 [facility] [place] Vascular - RIGHT Heel Ulcer - cont close wound care by Podiatry Finger pain, left Could this be gout? No injury. Trial Naproxen. Hx: recurrent pneumonia walking pneumonia most vines x 3 years Nasal polyps Psoriasis Surgical History History of amputation of great toe Right History of amputation of left lower extremity History of cardiac defibrillator placement History of cataract removal with insertion of prosthetic lens (~03/02/18) Right History of cystoscopy (~12/25/13) History of gastric bypass (~07/01/14) History of orchiectomy, unilateral (~06/1999) Right History of tonsillectomy (~1979) 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 Family History Mother Diabetes Father Diabetes Heart disease Hypertension Sister Diabetes Brother Diabetes Brother Diabetes Heart disease Hypertension Social History Smoking/Tobacco Use Status: Former Tobacco Use Quit Date: 07/18/98 Tobacco: How many years used: 10 Smoking risk assessment performed?: Yes Alcohol Intake: current Alcohol Intake frequency: 0-2 drinks per day Alcohol type: hard liquor Drug use: Never Substance use type: does not use Adopted: No Caregiver/Support person: No Foster care: No Household members: significant other Housing: house Do you need help understanding health information?: Rarely current occupation: Unemployed Sexually active: Yes Do you think of yourself as: straight/heterosexual Current gender identity: male Do you feel safe at home: Yes Do you feel safe in your relationship?: Yes Exam Const Other: Overweight chronically ill no acute distress Neck Other: Unable to assess JVP normal carotid upstrokes no bruits Resp Other: Decreased breath sounds at the bases Cardio Other: Apical impulse nonpalpable. Heart is regular distant probable summation gallop Extrem Other: Bilateral amputations, 1+ edema Results Last Vital Signs Temp 36.4 C L 12/15/21 07:59 Pulse 92 H 12/15/21 07:59 Resp 18 12/15/21 07:59 BP 125/70 12/15/21 09:15 Pulse Ox 91 L 12/15/21 07:59 Labs Result diagrams: 12/15/21 06:15 12/15/21 06:15 Labs: Laboratory Results - last 24 hr 12/14/21 12/14/21 12/14/21 17:00 17:00 17:00 WBC 7.47 RBC 4.64 Hgb 13.2 L Hct 42.9 MCV 93 MCH 28.4 MCHC 30.8 L RDW 15.3 H Plt Count 197 MPV 10.6 Immature Gran % 0.3 Neutrophils % 75.4 Lymphocytes % 8.7 Monocytes % 12.6 Eosinophils % 2.5 Basophils % 0.5 Nucleated RBC % 0.0 Absolute Neutrophils 5.63 Absolute Lymphocytes 0.65 L Absolute Monocytes 0.94 H Absolute Eosinophils 0.19 Absolute Basophils 0.04 PT 11.6 H INR 1.2 H APTT 24.9 Sodium 140 Potassium 4.2 Chloride 104 Carbon Dioxide 28.1 Anion Gap 7.9 BUN 43 H Creatinine 2.5 H Estimated GFR/1.73 m2 27.36 Glucose 127 H Calcium 8.4 L Total Bilirubin 0.5 AST 27 ALT 15 L Alkaline Phosphatase 117 H Troponin I 732 H* NT-Pro-B Natriuret Pep 43203 H Total Protein 6.1 L Albumin 2.3 L COVID-19 Source SARS-CoV-2 (PCR) Influenza Type A (PCR) Influenza Type B (PCR) RSV (PCR) 12/14/21 12/14/21 12/15/21 17:03 20:20 06:15 WBC RBC Hgb Hct MCV MCH MCHC RDW Plt Count MPV Immature Gran % Neutrophils % Lymphocytes % Monocytes % Eosinophils % Basophils % Nucleated RBC % Absolute Neutrophils Absolute Lymphocytes Absolute Monocytes Absolute Eosinophils Absolute Basophils PT INR APTT Sodium 138 Potassium 4.6 Chloride 102 Carbon Dioxide 25.1 Anion Gap 10.9 BUN 46 H Creatinine 2.5 H Estimated GFR/1.73 m2 27.36 Glucose 206 H Calcium 8.1 L Total Bilirubin 0.4 AST 29 ALT 15 L Alkaline Phosphatase 120 H Troponin I 691 H* NT-Pro-B Natriuret Pep Total Protein 6.1 L Albumin 2.2 L COVID-19 Source Not Applicable SARS-CoV-2 (PCR) Negative Influenza Type A (PCR) Negative Influenza Type B (PCR) Negative RSV (PCR) Negative 12/15/21 06:15 WBC 6.84 RBC 4.51 Hgb 13.0 L Hct 41.8 MCV 93 MCH 28.8 MCHC 31.1 L RDW 15.6 H Plt Count 200 MPV 10.9 Immature Gran % 0.4 Neutrophils % 91.6 Lymphocytes % 4.8 Monocytes % 2.8 Eosinophils % 0.1 Basophils % 0.3 Nucleated RBC % 0.0 Absolute Neutrophils 6.26 Absolute Lymphocytes 0.33 L Absolute Monocytes 0.19 Absolute Eosinophils 0.01 Absolute Basophils 0.02 PT INR APTT Sodium Potassium Chloride Carbon Dioxide Anion Gap BUN Creatinine Estimated GFR/1.73 m2 Glucose Calcium Total Bilirubin AST ALT Alkaline Phosphatase Troponin I NT-Pro-B Natriuret Pep Total Protein Albumin COVID-19 Source SARS-CoV-2 (PCR) Influenza Type A (PCR) Influenza Type B (PCR) RSV (PCR)
--- NOTE | 2021-12-15 13:35 | W.PM.PROGNOT ---
Date of Service Date of service: 12/15/21 Time of Service: 12:35 Assessment and Plan Assessment and plan (1) Chronic systolic CHF (congestive heart failure): Status: Acute Assessment and plan: seen by cards: per note: Patient has decompensated systolic heart failure. He is responding to IV diuretics. I would recommend consideration of changing lisinopril to Entresto but he will need to have his renal function and electrolytes monitored. He is already on Farxiga continue IV diuretics, I&O and weights. monitor labs closely (2) ICD (implantable cardioverter-defibrillator) in place: Status: Acute Assessment and plan: Followed in clinic as well as remotely (3) Amputee, below knee: Status: Chronic Assessment and plan: stable, wears prosthesis, (4) Coronary artery disease: Status: Chronic Assessment and plan: elevated troponin is on the basis of decompensated heart failure. Consider an ischemic evaluation, will defer to pcp (5) CKD stage 3 secondary to diabetes: Status: Chronic Assessment and plan: stable avoid nephrotoxic drugs, renal dosing as needed. Monitor renal function if Entresto is initiated (6) COPD exacerbation: Status: Acute Assessment and plan: continue updrafts, steroids. doxycycline day 07/22 (7) Diabetes mellitus with complication in adult patient: Status: Acute Assessment and plan: continue carb controlled diet coverage with meals and bedtime diabetic nutrition consultation (8) Discharge planning issues: Status: Acute Assessment and plan: anticipate discharge to home with no services. discussed with DR Last Subjective Subjective Patient reports: tolerating liquids well, tolerating a regular diet, voiding w/o difficulty, shortness of breath and afebrile Exam Const General: cooperative and ill appearing chronically Nutritional Appearance: obese morbidly obese Orientation: alert, awake and oriented x3 HENMT Head: normal to inspection, normocephalic and atraumatic Mouth: oral mucosae normal Chest Chest: normal inspection of the chest Resp Effort & Inspection: normal respiratory effort Cardio Rate: regular rate Rhythm: regular rhythm GI Inspection: large pannus and obesity Skin General skin exam: no rashes or lesions noted Extrem General: amputation noted (bilateral lower, stumps well healed) Objective Last Vital Signs Temp 36.4 C L 12/15/21 07:59 Pulse 92 H 12/15/21 07:59 Resp 18 12/15/21 07:59 BP 125/70 12/15/21 09:15 Pulse Ox 91 L 12/15/21 07:59 Laboratory Results - last 24 hr 12/14/21 12/14/21 12/14/21 17:00 17:00 17:00 WBC 7.47 RBC 4.64 Hgb 13.2 L Hct 42.9 MCV 93 MCH 28.4 MCHC 30.8 L RDW 15.3 H Plt Count 197 MPV 10.6 Immature Gran % 0.3 Neutrophils % 75.4 Lymphocytes % 8.7 Monocytes % 12.6 Eosinophils % 2.5 Basophils % 0.5 Nucleated RBC % 0.0 Absolute Neutrophils 5.63 Absolute Lymphocytes 0.65 L Absolute Monocytes 0.94 H Absolute Eosinophils 0.19 Absolute Basophils 0.04 PT 11.6 H INR 1.2 H APTT 24.9 Sodium 140 Potassium 4.2 Chloride 104 Carbon Dioxide 28.1 Anion Gap 7.9 BUN 43 H Creatinine 2.5 H Estimated GFR/1.73 m2 27.36 Glucose 127 H Calcium 8.4 L Total Bilirubin 0.5 AST 27 ALT 15 L Alkaline Phosphatase 117 H Troponin I 732 H* NT-Pro-B Natriuret Pep 18630 H Total Protein 6.1 L Albumin 2.3 L COVID-19 Source SARS-CoV-2 (PCR) Influenza Type A (PCR) Influenza Type B (PCR) RSV (PCR) 12/14/21 12/14/21 12/15/21 17:03 20:20 06:15 WBC RBC Hgb Hct MCV MCH MCHC RDW Plt Count MPV Immature Gran % Neutrophils % Lymphocytes % Monocytes % Eosinophils % Basophils % Nucleated RBC % Absolute Neutrophils Absolute Lymphocytes Absolute Monocytes Absolute Eosinophils Absolute Basophils PT INR APTT Sodium 138 Potassium 4.6 Chloride 102 Carbon Dioxide 25.1 Anion Gap 10.9 BUN 46 H Creatinine 2.5 H Estimated GFR/1.73 m2 27.36 Glucose 206 H Calcium 8.1 L Total Bilirubin 0.4 AST 29 ALT 15 L Alkaline Phosphatase 120 H Troponin I 691 H* NT-Pro-B Natriuret Pep Total Protein 6.1 L Albumin 2.2 L COVID-19 Source Not Applicable SARS-CoV-2 (PCR) Negative Influenza Type A (PCR) Negative Influenza Type B (PCR) Negative RSV (PCR) Negative 12/15/21 06:15 WBC 6.84 RBC 4.51 Hgb 13.0 L Hct 41.8 MCV 93 MCH 28.8 MCHC 31.1 L RDW 15.6 H Plt Count 200 MPV 10.9 Immature Gran % 0.4 Neutrophils % 91.6 Lymphocytes % 4.8 Monocytes % 2.8 Eosinophils % 0.1 Basophils % 0.3 Nucleated RBC % 0.0 Absolute Neutrophils 6.26 Absolute Lymphocytes 0.33 L Absolute Monocytes 0.19 Absolute Eosinophils 0.01 Absolute Basophils 0.02 PT INR APTT Sodium Potassium Chloride Carbon Dioxide Anion Gap BUN Creatinine Estimated GFR/1.73 m2 Glucose Calcium Total Bilirubin AST ALT Alkaline Phosphatase Troponin I NT-Pro-B Natriuret Pep Total Protein Albumin COVID-19 Source SARS-CoV-2 (PCR) Influenza Type A (PCR) Influenza Type B (PCR) RSV (PCR)
--- NOTE | 2021-12-15 16:02 | W.INDIABCONS ---
Date of service: 12/15/21 Time of Service: 15:02 Diabetes Inpatient Consult Reason for Visit: dm DESCRIPTION/ASSESSMENT: Leroy was busy with therapy at time of visit. 51 year old male admitted with CAD with history of Gastric Bypass 2013 (went from 400 lbs - 220 lbs). Recently restarted insulin as regained some weight. Most recent A1C: 9.2% (10/2021) indicates poorly controlled DM. PMH: CHF, COPD, CKD, HTN, morbid obesity, DM2. Home Dm meds: lantus 30 u at HS, Dpapgliflozin, lispro at meals. Has a CGM. Following diabetic diet with poor intake. Nursing reports c/o food. INTERVENTION: WIll follow up on 12/16/21 PLAN: will monitor po intake, labs, weight, will offer outpatient nutritional counseling for diabetes and weight management Time Spent in Nutritional Counseling and Treatment: 0
[2021-12-15] MEDS: Enoxaparin 30 MG/0.3 ML SYR SC (21:12)
[2021-12-16] VITALS: PULSE 73
[2021-12-16 03:31] VITALS: BP 141/83; PULSE 67; RESP 18; TEMP 36.2; O2SAT 91
[2021-12-16] MEDS: Ascorbic Acid 500 MG TAB 1000 MG PO (05:58)
[2021-12-16] MEDS: Albuterol/Ipratropium 3 ML UPD VIAL UPD ×2 (05:58→11:45)
[2021-12-16 07:45] VITALS: BP 124/76; PULSE 82; RESP 20; TEMP 35.8; O2SAT 89
[2021-12-16] MEDS: Carvedilol 12.5 MG TAB PO (08:29)
[2021-12-16] MEDS: Atorvastatin 10 MG TAB PO (08:30)
[2021-12-16] MEDS: Aspirin E.C. 81 MG TABEC PO (08:30)
[2021-12-16] MEDS: Lisinopril 10 MG TAB PO (08:30)
[2021-12-16] MEDS: Cyanocobalamin 500 MCG TAB 1000 MCG PO (08:30)
[2021-12-16] MEDS: Magnesium Oxide 400 MG TAB PO (08:30)
[2021-12-16] MEDS: Cetirizine 10 MG TAB PO (08:31)
[2021-12-16] MEDS: Omeprazole 20 MG CAPCR PO (08:31)
[2021-12-16] MEDS: Cholecalciferol (Vitamin D3) 1,000 UNIT TAB 1000 UNITS PO (08:31)
[2021-12-16] MEDS: Normal Saline Flush 10 ML SYR IVP (08:31)
[2021-12-16] MEDS: Furosemide 40 MG/4 ML VIAL IVP (08:33)
[2021-12-16] MEDS: methylPREDNISolone SUCC 125 MG VIAL 80 MG IVP (08:33)
[2021-12-16] MEDS: Fluticasone NASAL SPRAY 16 GM BTL NS (08:34)
[2021-12-16] MEDS: Insulin Aspart 300 UNITS/3 ML PEN SC (08:47)
[2021-12-16 08:54] VITALS: PULSE 81
[2021-12-16 09:02] LABS: Abs Immature Grans 0.05 10^3/uL (0.0-0.06); Absolute Basophil Count 0.01 10^3/uL (0.0-0.2); Absolute Lymphocyte Count 0.44 10^3/uL (1.2-3.4); Absolute Monocyte Count 0.32 10^3/uL (0.1-0.8); Absolute Neutrophil Count 8.36 10^3/uL (1.2-6.7); Basophils % 0.1; HCT 41.8 % (40.0-50.0); HGB 12.8 g/dL (13.5-17.5); Immature Grans % 0.5; Lymphocytes % 4.8; MCH 28.3 pg (27.0-33.0); MCHC 30.6 % (32.0-36.0); MCV 93 fL (80-95); Monocytes % 3.5; Neutrophils % 91.1; Platelet Count 190 10^3/uL (130-400); RBC 4.52 10^6/uL (4.36-5.78); RDW 15.4 % (11.8-14.1); RDW-SD 51.9 fL; WBC 9.18 10^3/uL (4.4-10.8)
[2021-12-16 09:19] LABS: Anion Gap 7.9 mmol/L (3-11); BUN 63 mg/dL (7-18); CO2 25.1 mmol/L (21.0-32.0); CREATININE 2.9 mg/dL (0.70-1.30); Calcium 7.9 mg/dL (8.5-10.1); Chloride 102 mmol/L (98-107); Estimated GFR 23.06 (mL/min/1.73m2); Glucose 380 mg/dL (74-106); Sodium 135 mmol/L (136-145)
[2021-12-16 09:21] LABS: Troponin I 369 ng/L (<or=60)
--- NOTE | 2021-12-16 11:12 | W.PM.DS.N ---
Date of service: 12/16/21 Time of Service: 10:12 DS: Diagnosis Discharge Diagnosis (1) CHF exacerbation: Status: Acute (2) COPD exacerbation: Status: Acute (3) CKD stage 3 secondary to diabetes: Status: Chronic (4) Diabetes mellitus with complication in adult patient: Status: Chronic Discharge Plan Disposition Patient Disposition: HOME W/HOME HEALTH SERVICE Condition: Stable Discharge Details Reason For Visit: CHF, COPD Exacerbation Admit Date/Time: 12/14/21 21:30 Admit Provider: Tu Johnson Attending Provider: Tu Johnson Primary Care Provider: Candice Perez Hospital Course Hospital Course: This is a 51-year-old male patient with a bilateral BKA and diabetic with obesity who presents with cough and increasing edema over his lower trunk as well as scrotal area which is the usual place he has swelling being bilateral amputee.? He has shortness of breath but no chest discomfort or chest pain with cough being dry.? In the ED he was found to have probable COPD exacerbation with CHF and was given diuretics with good effect.? He had an elevated troponin which trended downward and was thought to be not significant for his active presentation.? He responded to treatment, oxygenating well on room air with stable vitals signs. He had no chest pain. He was seen by cardiology who made the following recommendations which we will defer to his outpatient team as creatinine started rising with diuresis: recommend consideration of changing lisinopril to Entresto but he will need to have his renal function and electrolytes monitored and elevated troponin is on the basis of decompensated heart failure.? Consider an ischemic evaluation if it would? 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 He is stable and ready for discharge to home. He will have a resumption of his home health services. He should complete 5 days of doxycycline and prednision for his copd exacerbation. He is still reporting increased scrotal edema and will elevate and continue with bid diuretics as directed by pcp. Labs should be rechecked and further medication recommendations per pcp?. discussed with DR Last Home Meds and New Rx's Prescriptions: New prednisone 20 mg Tablet 40 mg PO DAILY Qty: 8 0RF doxycycline hyclate 100 mg capsule 100 mg PO BID Qty: 7 0RF Continued tramadol 100 mg tablet extended release 24 hr 100 mg PO DAILY Qty: 10 0RF Rx Instructions: trial for severe shldr pain to allow for sleep [id number]-[id number]-TC 3.5-10,000-1 mg/mL-unit/mL-% solution 4 drp otic (ear) QID Qty: 10 1RF clobetasol 0.05 % spray,non-aerosol 1 applic topical BID 7 Days Qty: 59 1RF Rx Instructions: not to exceed 26 sprays per single application Lantus Solostar U-100 Insulin 100 unit/mL (3 mL) insulin pen 30 unit subcut QPM (DME) Left Outer Sleeve See Rx Instructions .Route .MEDSUPPLY Qty: 1 0RF Rx Instructions: As directed (DME) RIGHT Prosthesis Adjustments See Rx Instructions .Route .MEDSUPPLY Qty: 1 0RF Rx Instructions: As directed Farxiga 5 mg tablet 5 mg PO DAILY Qty: 90 1RF ascorbic acid (vitamin C) 1,000 mg tablet 1 g PO Q6H Qty: 90 1RF aspirin 81 mg tablet,delayed release (DR/EC) 81 mg PO DAILY Qty: 90 3RF atorvastatin 10 mg tablet 10 mg PO DAILY Qty: 90 3RF azelastine 137 mcg (0.1 %) aerosol,spray See Rx Instructions intranasal BID Qty: 30 1RF Rx Instructions: 1-2 sprays intranasal twice a day; administer into each nostril carvedilol 12.5 mg tablet 12.5 mg PO BID Qty: 180 3RF Rx Instructions: must administer with a meal/food cetirizine 10 mg tablet 10 mg PO DAILY Qty: 90 3RF cholecalciferol (vitamin D3) 25 mcg (1,000 unit) capsule 25 mcg PO DAILY Qty: 90 3RF cyanocobalamin (vitamin B-12) 1,000 mcg capsule 1,000 mcg PO DAILY Qty: 90 3RF Dupixent Syringe 200 mg/1.14 mL syringe 200 mg subcut Q2W Qty: 2.28 3RF (DME) FreeStyle Luis 2 Burlison Misc See Rx Instructions .ROUTE .MEDSUPPLY Qty: 1 0RF Rx Instructions: As directed fluticasone propion-salmeterol [Advair Diskus] 250-50 mcg/dose blister with device 1 inh inhalation BID Qty: 60 0RF fluticasone propionate [Allergy Relief (fluticasone)] 50 mcg/actuation spray,suspension 1 spray intranasal DAILY Qty: 16 1RF Rx Instructions: administer into each nostril halobetasol propionate 0.05 % cream 1 applic topical DAILY PRN (Reason: psoriasis) Qty: 50 1RF ibuprofen 800 mg tablet 800 mg PO Q8H PRN (Reason: pain) Qty: 30 1RF Rx Instructions: Trial x 3 days then BID lisinopril 10 mg tablet 10 mg PO DAILY Qty: 90 3RF magnesium oxide 500 mg tablet 500 mg PO DAILY Qty: 90 3RF omeprazole 20 mg capsule,delayed release(DR/EC) 20 mg PO DAILY Qty: 90 3RF silver sulfadiazine 1 % cream 1 applic topical BID Qty: 400 3RF Hold Instructions: Home Medication placed on hold at Doctor's office Rx Instructions: apply a 1.5 mm thickness albuterol sulfate 90 mcg/actuation HFA aerosol inhaler 2 puff inhalation Q6H PRN cyclobenzaprine 10 mg tablet 10 mg PO BID PRN (Reason: muscle spasm) Qty: 30 1RF Rx Instructions: Trial for neck stiffness/spasm. Do NOT use with Tramadol. diazepam [Valium] 5 mg tablet 5 mg PO QHS PRN (Reason: sleep) Qty: 7 0RF Rx Instructions: Trial for severe neck spasm, splinting. pseudoephedrine HCl 240 mg tablet extended release 24 hr 240 mg PO DAILY PRN Hold Instructions: [place] Medication [place]'s [place] [place] Amputation Compression Sleeve See Rx Instructions .Route .MEDSUPPLY Qty: 1 0RF Rx Instructions: Please provide and fit a compression sleeve to the left BKA stump for appropriate prosthesis wear. insulin lispro 100 unit/mL solution 1 sliding scale dose subcut USEASDIRECTD MDD 10u Qty: 10 3RF Rx Instructions: [facility] Endo - current correction of 1u:30mg/dl, starting at 130mg/dl per pt. 01/06/21 [place] [place] FreeStyle Luis 2 Sensor Kit See Rx Instructions .ROUTE .MEDSUPPLY Qty: 6 3RF Rx Instructions: As directed [place] [place] fore arm cuff crutches See Rx Instructions .Route .MEDSUPPLY Qty: 1 0RF Rx Instructions: dispense 1 pair nicotine (polacrilex) [Nicorette] 2 mg lozenge 2 mg buccal Q6H PRN (Reason: nicotine cravings) Qty: 108 1RF insulin lispro [Humalog KwikPen Insulin] 100 unit/mL insulin pen 1 sliding scale dose subcut USEASDIRECTD Qty: 15 1RF spironolactone 25 mg tablet 25 mg PO DAILY Qty: 60 1RF Rx Instructions: Trial when taking Lasix BID; take in afternoon with extra lasix dose. (DME) wheel chair seat See Rx Instructions .Route .MEDSUPPLY Hold Instructions: Home Medication placed on hold at Doctor's office Rx Instructions: Replace wheel chair with 4inch padded seat (DME) wheel chair maintence 0 .Route .MEDSUPPLY Hold Instructions: Home Medication placed on hold at Doctor's office (DME) Wheelchair Maintenance See Rx Instructions .Route .MEDSUPPLY Qty: 1 0RF Rx Instructions: As directed to maintain safe transportation (DME) Wheelchair Seat 4 See Rx Instructions .Route .MEDSUPPLY Qty: 1 0RF Rx Instructions: Replace wheel chair with 4inch padded seat halobetasol propionate 0.05 % cream 1 applic topical DAILY Rx Instructions: 12/07/21 apply 1-2x/day qd for 7-14 days, then 1 week off, and repeat as needed Changed furosemide 40 mg tablet 40 mg PO BID DIURETIC Qty: 90 3RF Discharge Instructions Instructions: Heart Failure (DC), COPD (Chronic Obstructive Pulmonary Disease) (DC) Stand Alone Forms: Nursing Discharge Form Referrals: Yvette Estrada MD [ [facility] STAFF PHYSICIAN] - 12/22/21 10:00 am Candice Perez DO [Primary Care Provider] - 12/31/21 8:30 am Activity:: Activity as Tolerated Equipment/Supplies:: No Equipment Needed Diet:: Low Sodium Discharge Orders Discharge Orders: Discharge Order (Routine); Ordered 12/16/21 Ordered By: Merle Murphy Other Ambulatory Orders: Basic Metabolic Panel (Routine) Location: None Selected Ordered By: Merle Murphy Discharge Data Discharge Date/Time-TO BE ENTERED AT DEPARTURE: 12/16/21 11:57 DS: Summary Time Spent with Patient providing and/or coordinating discharge services: Greater than 30 minutes Status at Discharge Functional status at discharge: independent ambulation Overall status at discharge: patient is progressing back to baseline Mental Status: mental status grossly normal Speech and Movement: speech and movement normal Mood: congruent mood Affect: normal affect Exam Const General: cooperative and ill appearing chronically Nutritional Appearance: obese morbidly obese Orientation: alert, awake and oriented x3 HENMT Head: normal to inspection, normocephalic and atraumatic Mouth: oral mucosae normal Chest Chest: normal inspection of the chest Resp Effort & Inspection: normal respiratory effort Cardio Rate: regular rate Rhythm: regular rhythm GI Inspection: large pannus and obesity Skin General skin exam: no rashes or lesions noted Extrem General: amputation noted (bilateral lower, stumps well healed) Psych Mental Status: mental status grossly normal Speech and Movement: speech and movement normal Mood: congruent mood Affect: normal affect DS: Data Vitals/I&O Vitals and I&O: Vital Signs Temperature 35.8 C L 12/16/21 07:45 Temperature Source Tympanic 12/16/21 07:45 Pulse 81 12/16/21 08:54 Pulse Rhythm Regular 12/16/21 10:07 Pulse 98 H 12/14/21 20:20 Respiratory Rate 20 12/16/21 07:45 Respiratory Effort Non-Labored 12/16/21 10:07 Respiratory Depth Normal 12/16/21 10:07 Respiratory Pattern Normal 12/16/21 10:07 Blood Pressure 124/76 12/16/21 07:45 Blood Pressure Mean 135 12/14/21 18:48 Blood Pressure Position Sitting 12/14/21 16:12 Pulse Oximetry 89 L 12/16/21 07:45 Oxygen Delivery Method Room Air 12/16/21 07:45 Oxygen Flow Rate 0 12/16/21 07:45 Pain Level 0 12/15/21 19:37 Comment 12/16/21 07:45 Intake & Output 12/15/21 12/15/21 12/16/21 11:59 23:59 11:59 Intake Total 539.5 / 839.5 300 / 839.5 400 / 400 Output Total 750 / 1400 650 / 1400 Balance -210.5 / -560.5 -350 / -560.5 400 / 400 Weight 152.2 kg 153.8 kg Intake: IV 139.5 / 239.5 100 / 239.5 100 / 100 Oral 400 / 600 200 / 600 300 / 300 Output: Urine 750 / 1400 650 / 1400 Other: Urine Color Yellow Yellow Urine Appearance Clear Clear Urine Odor Normal Comment pT stated that he missed the urinal some, he told me he will let me know when he is ready for his bed to be changed. Bed linen saturated with urine. Pt refused to allow for linen change and incontinent care at this time. Voiding Methods Urinal Urinal Incontinent Data Completed and Pending Labs on day of discharge: Labs from last 24 hours 12/16/21 12/16/21 08:55 08:55 WBC 9.18 RBC 4.52 Hgb 12.8 L Hct 41.8 MCV 93 MCH 28.3 MCHC 30.6 L RDW 15.4 H Plt Count 190 MPV 11.0 Immature Gran % 0.5 Neutrophils % 91.1 Lymphocytes % 4.8 Monocytes % 3.5 Eosinophils % 0.0 Basophils % 0.1 Nucleated RBC % 0.0 Absolute Neutrophils 8.36 H Absolute Lymphocytes 0.44 L Absolute Monocytes 0.32 Absolute Eosinophils 0.00 Absolute Basophils 0.01 Sodium 135 L Potassium 5.0 Chloride 102 Carbon Dioxide 25.1 Anion Gap 7.9 BUN 63 H Creatinine 2.9 H Estimated GFR/1.73 m2 23.06 Glucose 380 H Calcium 7.9 L Troponin I 369 H* PFSH All Active Problems (Updated 12/15/21 @ 17:44 by Tu Johnson) Discharge planning issues (Acute) Dermatitis, unspecified (Acute ~11/2021) 12/07/21 Dermatology Coronary artery disease (Chronic) CHF exacerbation (Acute) COPD exacerbation (Acute) Elevated brain natriuretic peptide (BNP) level (Acute) thought to be near baseline, but unclear Hx Edema (Acute) Edema of abdomen (Acute) Fluid overload (Acute) 2' inactivity, diet, renal insufficiency, hyperglycemia Chronic systolic CHF (congestive heart failure) (Acute) 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 Elevated in 2020 2' Inf/ABx/HyperGly .. [ ] re-check 03/2021! Hypertension associated with diabetes (Acute) Diabetes mellitus with complication in adult patient (Chronic) Renal insufficiency (Chronic) Hyperglycemia due to diabetes mellitus (Acute) Chronic posttraumatic stress disorder (Acute) Neck pain (Acute) acute .. due to sleeping on sofa?? coughing? History of anemia (Chronic) History of posttraumatic stress disorder (PTSD) (Acute) Long Hx, Restarted with counselor, Madison Harris. 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 Working with [employer] re: prosthetics.. Hx of right BKA (Acute) Decreased range of motion (ROM) of right knee (Acute) Flexion ok; Extension is difficult .. Continues to work with PT Amputee, below knee (Chronic) Rt, November 2020. Lft, 2018 (?) GERD (gastroesophageal reflux disease) (Chronic) PPI COPD (chronic obstructive pulmonary disease) (Chronic) Hx smoker (~10pkyr), PFTs (04/17/21). Disability examination (Acute) PFTs, 04/2021 for Disability 2' COPD. Housing or economic problem (Acute) Carpal tunnel syndrome of left wrist (Acute) Cubital bursitis of right elbow (Acute) Type 2 diabetes mellitus with diabetic polyneuropathy (Acute) Persistent proteinuria associated with type 2 diabetes mellitus (Acute) Cervical neuropathy (Acute) Tendonitis of long head of biceps brachii of right shoulder (Acute) Bursitis of right shoulder (Acute) Right shoulder pain (Acute) Acute on chronic issue: now with elbow and hand pain (ulnar), with tingling. Nasal polyp (Acute) Pt report based on past ENT 06/02/[address] Haque - surgical correction planned Allergic rhinitis due to allergen (Acute) Nasal turbinate hypertrophy (Acute) Other chronic sinusitis (Acute) Deviated nasal septum (Acute) Seasonal allergies (Acute) Corneal opacification (Acute) OS Proliferative retinopathy of both eyes (Acute) Full PRP OD ICD (implantable cardioverter-defibrillator) in place (Acute) ICD, single lead, [employer] Visia 04/27/2018 [place], [place] Vitamin D deficiency (Acute) Erectile dysfunction (Acute) Testicular cancer (Acute) Secondary hyperparathyroidism (Acute) Medical History Diabetic foot ulcer associated with type 2 diabetes mellitus RESOLVED with amputation. 09/30/20-R heel w/cellulitis-Dr Kevin,DPM 10/16/20 Debridement by Podiatry 10/30/20 [facility] Vascular - RIGHT Heel Ulcer - cont close wound care by Podiatry Finger pain, left Could this be gout? No injury. Trial Naproxen. Hx: recurrent pneumonia walking pneumonia most vines x 3 years Nasal polyps Psoriasis Surgical History History of amputation of great toe Right History of amputation of left lower extremity History of cardiac defibrillator placement History of cataract removal with insertion of prosthetic lens (~03/02/18) Right History of cystoscopy (~12/25/13) History of gastric bypass (~07/01/14) History of orchiectomy, unilateral (~06/1999) Right History of tonsillectomy (~1979) 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 Family History Mother Diabetes Father Diabetes Heart disease Hypertension Sister Diabetes Brother Diabetes Brother Diabetes Heart disease Hypertension Social History Smoking/Tobacco Use Status: Former Tobacco Use Quit Date: 07/18/98 Tobacco: How many years used: 10 Smoking risk assessment performed?: Yes Alcohol Intake: current Alcohol Intake frequency: 0-2 drinks per day Alcohol type: hard liquor Drug use: Never Substance use type: does not use Adopted: No Caregiver/Support person: No Foster care: No Household members: significant other Housing: house Do you need help understanding health information?: Rarely current occupation: Unemployed Sexually active: Yes Do you think of yourself as: straight/heterosexual Current gender identity: male Do you feel safe at home: Yes Do you feel safe in your relationship?: Yes
--- NOTE | 2021-12-16 11:33 | PDOC.CMDIS ---
- If Service Date Differs Date of service: 12/16/21 Time of Service: 11:34 LACE Index Scoring Tool - Questions: Length of Stay (in days): 1 Acuity (Admit via E.D.?): Yes Comorbidities: Diabetes w/o Complication, Congestive Heart Failure, Chronic Pulmonary Disease, Metastatic Solid Tumor E.D. Visits: 1 - Answers: Total Score: 10 Risk of Readmission: High Risk Care Management Discharge Reason for Hospitalization: CHR, COPD exacerbation Discharge Plan: Maverick is discharged to home via [employer]. Pt will resume [facility] services. Pt will follow up with PCP and cardiology as scheduled. RX's for Doxycycline and Prednisone are printed and can be filled at pharmacy of choice. Maverick will resume activity as tolerated and a diet low in sodium is strongly encouraged. Patient/Family Education Needs: Review discharge instructions, limitations, medications and plan to follow up with PCP and Cardiology as scheduled. Services Needed at Discharge: Home Health Care Services (Resumption of [facility] services( left message for [facility]).), Transportation (Via [employer])
[2021-12-16 11:45] VITALS: RESP 8
== END 2021-12-16 11:57 | disposition home health service (06) | DRG 291 ==
LOC: ER 21:05 → MS 22:45
PROVIDERS: Nurse Practitioner Acute Care; Admitting Provider Family Medicine; Emergency Provider Emergency Medicine; PCP Student in an Organized Health Care Education/Training Program; Visit Provider Family Medicine
DX: I13.0 Hypertensive heart and chronic kidney disease with heart failure and stage 1 through stage 4 chronic kidney disease, or unspecified chronic kidney disease (principal); I50.23 Acute on chronic systolic (congestive) heart failure; J44.1 Chronic obstructive pulmonary disease with (acute) exacerbation; Z68.42 Body mass index [BMI] 45.0-49.9, adult; N25.81 Secondary hyperparathyroidism of renal origin; Z95.810 Presence of automatic (implantable) cardiac defibrillator; Z89.511 Acquired absence of right leg below knee; Z89.512 Acquired absence of left leg below knee; N18.30 Chronic kidney disease, stage 3 unspecified; E11.22 Type 2 diabetes mellitus with diabetic chronic kidney disease; E66.9 Obesity, unspecified; L30.9 Dermatitis, unspecified; I25.10 Atherosclerotic heart disease of native coronary artery without angina pectoris; E11.65 Type 2 diabetes mellitus with hyperglycemia; F43.12 Post-traumatic stress disorder, chronic; K21.9 Gastro-esophageal reflux disease without esophagitis; Z60.4 Social exclusion and rejection; F43.29 Adjustment disorder with other symptoms; E11.42 Type 2 diabetes mellitus with diabetic polyneuropathy; G54.0 Brachial plexus disorders; M75.21 Bicipital tendinitis, right shoulder; M75.51 Bursitis of right shoulder; Z85.47 Personal history of malignant neoplasm of testis; E55.9 Vitamin D deficiency, unspecified; Z98.84 Bariatric surgery status; Z90.79 Acquired absence of other genital organ(s); Z87.891 Personal history of nicotine dependence; L40.9 Psoriasis, unspecified; J30.89 Other allergic rhinitis; E11.3593 Type 2 diabetes mellitus with proliferative diabetic retinopathy without macular edema, bilateral; I73.9 Peripheral vascular disease, unspecified
CPT/HCPCS: 36415; 80048; 80053; 87637; 93005; 96374; 99285; 71045; 83880; 84484; 85025; 85610; 85730; 93010; 93306; 94640; 99223; 99233; 99239; J1650; J1940; J2930; J7620

== ENCOUNTER 2021-12-17 13:47 | Inpatient (IN) | payer MEDICAID, SELFPAY ==
[2021-12-17] VITALS (11 sets, daily range): BP systolic 120–142; BP diastolic 81–88; PULSE 66–84; RESP 11–20; TEMP 36–36.3; O2SAT 93–96
--- NOTE | 2021-12-17 14:15 | DI.RAD_ITS ---
Exam(s) XR CHEST 2V PA LATERAL EXAM: XR CHEST 2V PA LATERAL CLINICAL HISTORY: SOB, CHF. TECHNIQUE: 2D digital imaging was performed. COMPARISON: CR,XR XR PORTABLE CHEST AP from 12/14/2021 FINDINGS: 2 views: Mild cardiomegaly left subclavian unipolar pacemaker lead tip in RV, unchanged. No mediastinal widen ing. There is some infiltrate again noted in the lower right lung field, mostly right lower lobe as seen o n the lateral view. Possibly also some left lower lobe infiltrate. There are no pleural effusions. No pulmonary edema No pneumothorax IMPRESSION: Right lower lobe infiltrate. Probably also left lower lobe infiltrate. No pleural effusions. Cardiac pacemaker. No pulmonary edema. DATA REPOSITORY: RADIATION DOSE DELIVERED:
--- NOTE | 2021-12-17 14:15 | RT.EKG_ITS ---
APPROVED REPORT Exam: Resting ECG Reason for Exam: sob, chf Patient Location: E HR:67 bpm ECG Measurements Heart Rate 67 AXIS IN 191 P 49 QRSd 118 QRS 117 QT 423 T -88 QTc 447 Conclusion Sinus rhythm Nonspecific intraventricular conduction delay Low voltage, extremity and precordial leads Nonspecific T abnormalities
--- NOTE | 2021-12-17 14:19 | W.ED.GENAD ---
Discharge Plan Disposition Patient Disposition: [facility] INPATIENT Condition: Stable Discharge Details Chief Complaint: SOB Clinical Impression: CHF exacerbation Admit Date/Time: 12/17/21 16:24 Admit Provider: Darek Reynolds Attending Provider: Darek Reynolds Primary Care Provider: Candice Perez ED Provider: James Laboy Medical Decision Making This is a 51-year-old male who was discharged from the hospital yesterday after admission for COPD exacerbation and CHF exacerbation. Patient states he has had ongoing shortness of breath, particularly with light exertion such as transferring from his chair and attempting to put on his lower extremity prosthesis. He states he was evaluated by home health and then spoke with his primary care physician and was referred to the ER for readmission. Patient arrives to ER awake, alert and interactive, he does get mild increased work of breathing with moving in the bed. His exam reveals scattered coarse rhonchi and basilar rales. Reviewed the patient's recent laboratories notable BNP 21,000, elevated troponin of 369. Today, patient was placed on traffic monitor specialist, repeat laboratories, EKG and chest x-ray obtained. This reveals right lower lobe infiltrate possibly left lower lobe infiltrate. Given the elevated white blood cell count, symptomatic decline at home, and need for careful management of fluids I will advocate for admission of the patient. HPI General Mode of arrival: EMS. Date/Time Provider Initiated Documentation: 12/17/21 14:00. Limitations to Documentation: no limitations. Information obtained by: patient and EMS. History of Present Illness 51 year old M presents to the emergency department with the chief complaint of Shortness of breath, edema, described as moderate, and is localized to the chest and abdomen. Patient started experiencing this day(s) and it has been intermittent. Rest improves symptom(s), Movement worsens symptoms . Patient notes shortness of breath; denies chest pain and syncope. Patient did receive the following treatments prior to arrival, none Related Data Home Medications Medication Instructions Recorded Confirmed pseudoephedrine HCl 240 mg 240 mg PO DAILY PRN 04/02/20 12/17/21 tablet,extended release 24 hr tramadol 100 mg tablet,extended 100 mg PO DAILY #10 tabs 07/16/20 12/17/21 release 24 hr Amputation Compression Sleeve #1 ea 01/26/21 12/17/21 ascorbic acid (vitamin C) 1,000 mg 1 g PO Q6H #90 tabs 03/05/21 12/17/21 tablet aspirin 81 mg tablet,delayed 81 mg PO DAILY #90 tabs 03/05/21 12/17/21 release atorvastatin 10 mg tablet 10 mg PO DAILY #90 tabs 03/05/21 12/17/21 azelastine 137 mcg (0.1 %) nasal See Rx Instructions intranasal BID 03/05/21 12/17/21 spray aerosol #30 mL carvedilol 12.5 mg tablet 12.5 mg PO BID #180 tabs 03/05/21 12/17/21 cetirizine 10 mg tablet 10 mg PO DAILY #90 tabs 03/05/21 12/17/21 cholecalciferol (vitamin D3) 25 25 mcg PO DAILY #90 caps 03/05/21 12/17/21 mcg (1,000 unit) capsule cyanocobalamin (vitamin B-12) 1,000 mcg PO DAILY #90 caps 03/05/21 12/17/21 1,000 mcg capsule dupilumab 200 mg/1.14 mL 200 mg (1.14 mL) subcut Q2W #2.28 03/05/21 12/17/21 subcutaneous syringe ([employer]) mL flash glucose scanning reader #1 ea 03/05/21 12/17/21 ([employer] 2 [place]) fluticasone 250 mcg-salmeterol 50 1 inh inhalation BID #60 ea 03/05/21 12/17/21 mcg/dose blistr powdr for inhalation (Advair Diskus) fluticasone propionate 50 1 spray intranasal DAILY #16 grams 03/05/21 12/17/21 mcg/actuation nasal spray,suspension (Allergy Relief (fluticasone)) halobetasol propionate 0.05 % 1 applic topical DAILY PRN 03/05/21 12/17/21 topical cream psoriasis #50 grams ibuprofen 800 mg tablet 800 mg PO Q8H PRN pain #30 tabs 03/05/21 12/17/21 lisinopril 10 mg tablet 10 mg PO DAILY #90 tabs 03/05/21 12/17/21 magnesium oxide 500 mg tablet 500 mg PO DAILY #90 tabs 03/05/21 12/17/21 omeprazole 20 mg capsule,delayed 20 mg PO DAILY #90 caps 03/05/21 12/17/21 release silver sulfadiazine 1 % topical 1 applic topical BID #400 grams 03/05/21 12/17/21 cream insulin lispro 100 unit/mL 1 sliding scale dose subcut 03/09/21 12/17/21 subcutaneous solution USEASDIRECTD #10 mL flash glucose sensor (FreeStyle #6 ea 04/17/21 12/17/21 Luis 2 Sensor kit) fore arm cuff crutches #1 ea 06/07/21 12/17/21 nicotine (polacrilex) 2 mg buccal 2 mg buccal Q6H PRN nicotine 06/16/21 12/17/21 lozenge (Nicorette) cravings #108 ea clobetasol 0.05 % topical spray 1 applic topical BID 1 week #59 mL 08/09/21 12/17/21 [id number] 3.5 4 drp otic (ear) QID #10 mL 08/09/21 12/17/21 mg/mL-10,000 unit/mL-1 % ear solution albuterol sulfate 90 mcg/actuation 2 puff inhalation Q6H PRN 08/18/21 12/17/21 aerosol inhaler cyclobenzaprine 10 mg tablet 10 mg PO BID PRN muscle spasm #30 09/04/21 12/17/21 tabs diazepam 5 mg tablet (Valium) 5 mg PO QHS PRN sleep #7 tabs 09/04/21 12/17/21 insulin lispro 100 unit/mL 1 sliding scale dose subcut 10/27/21 12/17/21 subcutaneous pen (Humalog KwikPen USEASDIRECTD DM, E11.8 .. to jeep (U-100) Insulin) A1C < 7.5 #15 mL spironolactone 25 mg tablet 25 mg PO DAILY #60 tabs 11/23/21 12/17/21 insulin glargine 100 unit/mL (3 30 unit subcut QPM 12/04/21 12/17/21 mL) subcutaneous pen (Lantus Solostar U-100 Insulin) Left Outer Sleeve #1 ea 12/07/21 12/17/21 RIGHT Prosthesis Adjustments #1 ea 12/07/21 12/17/21 dapagliflozin 5 mg tablet (Farxiga) 5 mg PO DAILY T 2 DM not at goal, 12/07/21 12/17/21 stage 3 CKD #90 tabs wheel chair maintence 12/07/21 12/17/21 wheel chair seat 12/07/21 12/17/21 Wheelchair Maintenance #1 ea 12/13/21 12/17/21 Wheelchair Seat #1 ea 12/13/21 12/17/21 halobetasol propionate 0.05 % 1 applic topical DAILY 12/15/21 12/17/21 topical cream doxycycline hyclate 100 mg capsule 100 mg PO BID #7 caps 12/16/21 12/17/21 furosemide 40 mg tablet 40 mg PO BID DIURETIC #90 tabs 12/16/21 12/17/21 prednisone 20 mg tablet 40 mg PO DAILY #8 tabs 12/16/21 12/17/21 Previous Rx's Medication Instructions Recorded tramadol 100 mg tablet,extended 100 mg PO DAILY #10 tabs 07/16/20 release 24 hr Amputation Compression Sleeve #1 ea 01/26/21 ascorbic acid (vitamin C) 1,000 mg 1 g PO Q6H #90 tabs 03/05/21 tablet aspirin 81 mg tablet,delayed 81 mg PO DAILY #90 tabs 03/05/21 release atorvastatin 10 mg tablet 10 mg PO DAILY #90 tabs 03/05/21 azelastine 137 mcg (0.1 %) nasal See Rx Instructions intranasal BID 03/05/21 spray aerosol #30 mL carvedilol 12.5 mg tablet 12.5 mg PO BID #180 tabs 03/05/21 cetirizine 10 mg tablet 10 mg PO DAILY #90 tabs 03/05/21 cholecalciferol (vitamin D3) 25 25 mcg PO DAILY #90 caps 03/05/21 mcg (1,000 unit) capsule cyanocobalamin (vitamin B-12) 1,000 mcg PO DAILY #90 caps 03/05/21 1,000 mcg capsule dupilumab 200 mg/1.14 mL 200 mg (1.14 mL) subcut Q2W #2.28 03/05/21 subcutaneous syringe ([employer]) mL flash glucose scanning reader #1 ea 03/05/21 ([employer] Luis 2 [place]) fluticasone 250 mcg-salmeterol 50 1 inh inhalation BID #60 ea 03/05/21 mcg/dose blistr powdr for inhalation (Advair Diskus) fluticasone propionate 50 1 spray intranasal DAILY #16 grams 03/05/21 mcg/actuation nasal spray,suspension (Allergy Relief (fluticasone)) halobetasol propionate 0.05 % 1 applic topical DAILY PRN 03/05/21 topical cream psoriasis #50 grams ibuprofen 800 mg tablet 800 mg PO Q8H PRN pain #30 tabs 03/05/21 lisinopril 10 mg tablet 10 mg PO DAILY #90 tabs 03/05/21 magnesium oxide 500 mg tablet 500 mg PO DAILY #90 tabs 03/05/21 omeprazole 20 mg capsule,delayed 20 mg PO DAILY #90 caps 03/05/21 release silver sulfadiazine 1 % topical 1 applic topical BID #400 grams 03/05/21 cream insulin lispro 100 unit/mL 1 sliding scale dose subcut 03/09/21 subcutaneous solution USEASDIRECTD #10 mL flash glucose sensor (FreeStyle #6 ea 04/17/21 Luis 2 Sensor kit) fore arm cuff crutches #1 ea 06/07/21 nicotine (polacrilex) 2 mg buccal 2 mg buccal Q6H PRN nicotine 06/16/21 lozenge (Nicorette) cravings #108 ea clobetasol 0.05 % topical spray 1 applic topical BID 1 week #59 mL 08/09/21 [id number] 3.5 4 drp otic (ear) QID #10 mL 08/09/21 mg/mL-10,000 unit/mL-1 % ear solution cyclobenzaprine 10 mg tablet 10 mg PO BID PRN muscle spasm #30 09/04/21 tabs diazepam 5 mg tablet (Valium) 5 mg PO QHS PRN sleep #7 tabs 09/04/21 insulin lispro 100 unit/mL 1 sliding scale dose subcut 10/27/21 subcutaneous pen (Humalog KwikPen USEASDIRECTD DM, E11.8 .. to jeep (U-100) Insulin) A1C < 7.5 #15 mL spironolactone 25 mg tablet 25 mg PO DAILY #60 tabs 11/23/21 Left Outer Sleeve #1 ea 12/07/21 RIGHT Prosthesis Adjustments #1 ea 12/07/21 dapagliflozin 5 mg tablet (Farxiga) 5 mg PO DAILY T 2 DM not at goal, 12/07/21 stage 3 CKD #90 tabs Wheelchair Maintenance #1 ea 12/13/21 Wheelchair Seat #1 ea 12/13/21 doxycycline hyclate 100 mg capsule 100 mg PO BID #7 caps 12/16/21 furosemide 40 mg tablet 40 mg PO BID DIURETIC #90 tabs 12/16/21 prednisone 20 mg tablet 40 mg PO DAILY #8 tabs 12/16/21 Allergies Allergy/AdvReac Type Severity Reaction Status Date / Time No Known Allergies Allergy Verified 12/17/21 14:07 General Stated Complaint: SOB RAMON: 3 Review of Systems Narrative: Truncal and upper thigh edema. Shortness of breath with exertion. Weakness. No syncope or falls at home. 8 systems were reviewed and otherwise negative PFSH All Active Problems (Updated 12/17/21 @ 17:07 by James Laboy MD) Discharge planning issues (Acute) Dermatitis, unspecified (Acute ~11/2021) 12/07/21 Dermatology Coronary artery disease (Chronic) CHF exacerbation (Acute) COPD exacerbation (Acute) Elevated brain natriuretic peptide (BNP) level (Acute) thought to be near baseline, but unclear Hx Edema (Acute) Edema of abdomen (Acute) Fluid overload (Acute) 2' inactivity, diet, renal insufficiency, hyperglycemia Chronic systolic CHF (congestive heart failure) (Acute) 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 Elevated in 2020 2' Inf/ABx/HyperGly .. [ ] re-check 03/2021! Hypertension associated with diabetes (Acute) Diabetes mellitus with complication in adult patient (Chronic) Renal insufficiency (Chronic) Hyperglycemia due to diabetes mellitus (Acute) Chronic posttraumatic stress disorder (Acute) Neck pain (Acute) acute .. due to sleeping on sofa?? coughing? History of anemia (Chronic) History of posttraumatic stress disorder (PTSD) (Acute) Long Hx, Restarted with counselor, Madison Harris. 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 Working with [employer] re: prosthetics.. Hx of right BKA (Acute) Decreased range of motion (ROM) of right knee (Acute) Flexion ok; Extension is difficult .. Continues to work with PT Amputee, below knee (Chronic) Rt, November 2020. Lft, 2018 (?) GERD (gastroesophageal reflux disease) (Chronic) PPI COPD (chronic obstructive pulmonary disease) (Chronic) Hx smoker (~10pkyr), PFTs (04/17/21). Disability examination (Acute) PFTs, 04/2021 for Disability 2' COPD. Housing or economic problem (Acute) Carpal tunnel syndrome of left wrist (Acute) Cubital bursitis of right elbow (Acute) Type 2 diabetes mellitus with diabetic polyneuropathy (Acute) Persistent proteinuria associated with type 2 diabetes mellitus (Acute) Cervical neuropathy (Acute) Tendonitis of long head of biceps brachii of right shoulder (Acute) Bursitis of right shoulder (Acute) Right shoulder pain (Acute) Acute on chronic issue: now with elbow and hand pain (ulnar), with tingling. Nasal polyp (Acute) Pt report based on past ENT 06/02/[address] Haque - surgical correction planned Allergic rhinitis due to allergen (Acute) Nasal turbinate hypertrophy (Acute) Other chronic sinusitis (Acute) Deviated nasal septum (Acute) Seasonal allergies (Acute) Corneal opacification (Acute) OS Proliferative retinopathy of both eyes (Acute) Full PRP OD ICD (implantable cardioverter-defibrillator) in place (Acute) ICD, single lead, [employer] Visia 04/27/2018 [place], [place] Vitamin D deficiency (Acute) Erectile dysfunction (Acute) Testicular cancer (Acute) Secondary hyperparathyroidism (Acute) Medical History Diabetic foot ulcer associated with type 2 diabetes mellitus RESOLVED with amputation. 09/30/20-R heel w/cellulitis-Dr Kevin,DPDilia 10/16/20 Debridement by Podiatry 10/30/20 [facility] [place] [facility] - RIGHT Heel Ulcer - cont close wound care by Podiatry Finger pain, left Could this be gout? No injury. Trial Naproxen. Hx: recurrent pneumonia walking pneumonia most vines x 3 years Nasal polyps Psoriasis Surgical History History of amputation of great toe Right History of amputation of left lower extremity History of cardiac defibrillator placement History of cataract removal with insertion of prosthetic lens (~03/02/18) Right History of cystoscopy (~12/25/13) History of gastric bypass (~07/01/14) History of orchiectomy, unilateral (~06/1999) Right History of tonsillectomy (~1979) 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 Family History Mother Diabetes Father Diabetes Heart disease Hypertension Sister Diabetes Brother Diabetes Brother Diabetes Heart disease Hypertension Social History Smoking/Tobacco Use Status: Former Tobacco Use Quit Date: 07/18/98 Tobacco: How many years used: 10 Smoking risk assessment performed?: Yes Alcohol Intake: current Alcohol Intake frequency: 0-2 drinks per day Alcohol type: hard liquor Substance use type: does not use Adopted: No Caregiver/Support person: No Foster care: No Household members: significant other Housing: house Do you need help understanding health information?: Rarely current occupation: Unemployed Sexually active: Yes Do you think of yourself as: straight/heterosexual Current gender identity: male Do you feel safe at home: Yes Do you feel safe in your relationship?: Yes Exam Narrative Exam Narrative: GEN: awake, alert, oriented 3. Pleasant, well groomed, interactive. HEAD: Normocephalic, atraumatic ENT: Mucous membranes moist, oropharynx unremarkable, External ear exam unremarkable EYES: PERRL, EOMI NECK: Full ROM, no JOYCE, no menigismus CHEST/RESP: Nontender, coarse rhonchi/basilar rales, few end expiratory wheeze present CARDIOVASCULAR: RRR, no murmur, rub janina. 2+ Rad pulse bilateral ABDOMEN: Soft, nontender, no mass. +Bowel sounds, edematous EXT: Rrcyy-lyy-foiq amputation, anterior thigh and lower abdomen edema Neuro: Grossly normal neurologic exam, conversant, interactive. Psych: Speech fluent, thoughts congruent, affect normal Course Vital Signs Vital signs: Vital Signs Temperature 36.3 C L 12/17/21 14:03 Pulse 70 12/17/21 14:03 Respiratory Rate 16 12/17/21 14:03 Blood Pressure 142/85 H 12/17/21 14:03 Pulse Oximetry 93 12/17/21 14:03 Temperature 36.3 C L 12/17/21 14:03 Temperature Source Temporal Artery Scan 12/17/21 14:03 Pulse 70 12/17/21 14:03 Respiratory Rate 16 12/17/21 14:03 Respiratory Effort 12/17/21 14:03 Blood Pressure 142/85 H 12/17/21 14:03 Blood Pressure Position Sitting 12/17/21 14:03 Pulse Oximetry 93 12/17/21 14:03 Oxygen Delivery Method Room Air 12/17/21 14:03 Oxygen Flow Rate 0 12/17/21 14:03 Pain Level 0 12/17/21 14:03
[2021-12-17 14:35] LABS: Abs Immature Grans 0.04 10^3/uL (0.0-0.06); Absolute Monocyte Count 0.53 10^3/uL (0.1-0.8); Basophils % 0.2; HCT 42.2 % (40.0-50.0); HGB 13.2 g/dL (13.5-17.5); Immature Grans % 0.3; Lymphocytes % 5.6; MCH 28.6 pg (27.0-33.0); MCHC 31.3 % (32.0-36.0); MCV 92 fL (80-95); MPV 10.7 fL (8.0-11.0); Monocytes % 4.1; Neutrophils % 89.8; Platelet Count 179 10^3/uL (130-400); RBC 4.61 10^6/uL (4.36-5.78); RDW 15.4 % (11.8-14.1); RDW-SD 51.8 fL; WBC 12.96 10^3/uL (4.4-10.8)
[2021-12-17 14:36] LABS: Absolute Basophil Count 0.03 10^3/uL (0.0-0.2); Absolute Lymphocyte Count 0.73 10^3/uL (1.2-3.4); Absolute Neutrophil Count 11.64 10^3/uL (1.2-6.7)
[2021-12-17] MEDS: Furosemide 100 MG/10 ML VIAL 80 MG IVP (14:53)
[2021-12-17 15:00] LABS: ALT 13 U/L (16-63); AST 21 U/L (15-37); Alkaline Phosphatase 107 U/L (46-116); Anion Gap 6.9 mmol/L (3-11); BUN 74 mg/dL (7-18); Bilirubin, Total 0.3 mg/dL (0.2-1.0); CO2 28.1 mmol/L (21.0-32.0); CREATININE 2.9 mg/dL (0.70-1.30); Calcium 7.8 mg/dL (8.5-10.1); Chloride 100 mmol/L (98-107); Estimated GFR 23.06 (mL/min/1.73m2); Glucose 413 mg/dL (74-106); Magnesium 2.1 mg/dL (1.8-2.4); NT-proBNP 17075 pg/mL (<300); Sodium 135 mmol/L (136-145); Total Protein 5.5 g/dL (6.4-8.2)
[2021-12-17 15:01] LABS: Troponin I 297 ng/L (<or=60)
[2021-12-17] MEDS: Normal Saline Flush 10 ML SYR IVP (18:04)
--- NOTE | 2021-12-17 18:04 | HPE_ITS ---
Date of service: 12/17/21 Time of Service: 17:04 Assessment and Plan Assessment and plan (1) Acute on chronic systolic heart failure: Status: Acute Assessment and plan: Patient be put on continuous Lasix drip at 20 mg an hour to force with diuresis. We will make changes in his goal-directed therapy he is already on for CHF and is on spironolactone. Once she is adequately diuresed I will switch his lisinopril to Entresto and monitor his renal function electrolytes. (2) COPD (chronic obstructive pulmonary disease): Status: Chronic Assessment and plan: I do not feel that clinically he is having exacerbation of COPD and I am not even sure that the last admission was a COPD exacerbation I think it was more CHF. At this point I will stop his prednisone since is causing his elevated b lood sugars and he is not having a bronchospastic symptoms. I will finish out the course of doxycycline just because he had presented with some sputum production although it did not sound purulent. Currently he is not coughing up anything and not running any fevers. Otherwise we will continue on inhaler. He will remain on the fluticasone/salmeterol) right elbow but not put him on scheduled doses of DuoNeb unless he starts getting bronchospastic. (3) Elevated troponin I level: Status: Acute Assessment and plan: I agree with Dr. Estrada that his elevated troponin likely represents demand ischemia from his CHF exacerbation. However he has known coronary artery disease had a previous myocardial infarction in his 30s and should have follow- up nuclear MPI stress imaging to evaluate for residual ischemic heart disease. (4) Diabetes mellitus with complication in adult patient: Status: Chronic Assessment and plan: Continue his home dose of Lantus I will put him on both carb coverage as well as sliding scale insulin. Hopefully sugar should come down once he is off the pr ednisone. (5) Hypertension associated with diabetes: Status: Acute Assessment and plan: Currently his lisinopril is on hold while we diurese him. Later back on the HALI or ARB for start Entresto if we can get his HS covered and try. Otherwise he will remain on his carvedilol and his spironolactone to control his CHF and his blood pressure. (6) CKD stage 3 secondary to diabetes: Status: Chronic Assessment and plan: Patient has ibuprofen on his home medications. He should avoid NSAIDs in the setting of chronic kidney disease. We will need to carefully monitor renal function as we diurese him and add Entresto. 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 He had an elevated troponin of 732 with a repeat level 691. Because the elevated troponins and presentation with CHF cardiology consultation was obtained on 12/15/[address] Yvette Estrada. See her note for details. In summary she felt patient had decompensated systolic heart failure and was responding to IV diuretics. She recommended consideration of changing lisinopril to Entresto but indicated would require renal function monitoring electrolyte monitoring. Patient was already on Farxiga. She follows elevated troponins. The basis of decompensated heart failure this did not represent an acute MN. She did recommend consideration for ischemic evaluation as outpatient. Patient was treated for COPD exacerbation with steroids bronchodilators and doxycycline. He was discharged home reportedly in improved condition after receiving IV diuretics. He was discharged on 12/16/2021. However after returning home he was developing increasing shortness of breath along with increasing scrotal and bilateral upper leg edema causing him difficulty with putting on his lower extremity prosthesis. He was evaluated by home health and spoke with his primary care provider who recommended that he be referred to the ER for reevaluation and admission. Dr. Buenrostro will evaluate the patient in the emergency department repeat his EKG and chest x-ray and labs. 's findings included chest x-ray that reportedly showed right lower lobe infiltrate and probably a left lower lobe infiltrate with no pleural effusions. However the patient has no symptoms of pneumonia. Specifically denies any fevers chills or purulent sputum production. Patient's blood sugar was 413 on a dmission but he had a normal anion gap of 6.9 and normal carbon dioxide 28.1. Patient reports that since he was put on steroids his blood sugars shot up into the 400-500 range. Says normally keeps his blood sugars in the 120s to 180 range. His troponin on admission was lower than when he left the hospital yesterday. Troponins 297 with a repeat level 4 hours later at 307. Patient has chronic renal insufficiency with a BUN of 74 creatinine 2.9. This is about the same level when he presented to the hospital yesterday. His CBC does show an elevated white count of 12,900 but again he is afebrile and was just recently discharged home on 40 mg of prednisone. ECG demonstrated sinus rhythm at a rate of 67 bpm with some nonspecific ST T wave abnormalities in the lateral leads aVL, V5, V6. This is similar to his prior ECG. I reviewed his chest x-ray myself he has cardiomegaly he does have cephalization of his vessels along with bilateral lower lobe infiltrates which very well could be CHF rather than pneumonia. I discussed this case with Dr. James Laboy advised Lasix I told him I would hold off on antibiotics at this time and was he spiking fever or coughing up purulent sputum. He was given 80 mg of Lasix in the ER and I plan to admit him on medical/surgical floor on telemetry with continued monitoring of his troponins as well as continued IV diuretics. Review of Systems All systems reviewed & are unremarkable except as noted in HPI and below PFSH All Active Problems (Updated 12/18/21 @ 09:56 by Darek Reynolds) Elevated troponin I level (Acute) Acute on chronic systolic heart failure (Acute) Discharge planning issues (Acute) Dermatitis, unspecified (Acute ~11/2021) 12/07/21 Dermatology Coronary artery disease (Chronic) CHF exacerbation (Acute) COPD exacerbation (Acute) Elevated brain natriuretic peptide (BNP) level (Acute) thought to be near baseline, but unclear Hx Edema (Acute) Edema of abdomen (Acute) Fluid overload (Acute) 2' inactivity, diet, renal insufficiency, hyperglycemia Chronic systolic CHF (congestive heart failure) (Acute) 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 Elevated in 2020 2' Inf/ABx/HyperGly .. [ ] re-check 03/2021! Hypertension associated with diabetes (Acute) Diabetes mellitus with complication in adult patient (Chronic) Renal insufficiency (Chronic) Hyperglycemia due to diabetes mellitus (Acute) Chronic posttraumatic stress disorder (Acute) Neck pain (Acute) acute .. due to sleeping on sofa?? coughing? History of anemia (Chronic) History of posttraumatic stress disorder (PTSD) (Acute) Long Hx, Restarted with counselor, Madison Harris. 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 Working with [employer] re: prosthetics.. Hx of right BKA (Acute) Decreased range of motion (ROM) of right knee (Acute) Flexion ok; Extension is difficult .. Continues to work with PT Amputee, below knee (Chronic) Rt, November 2020. Lft, 2018 (?) GERD (gastroesophageal reflux disease) (Chronic) PPI COPD (chronic obstructive pulmonary disease) (Chronic) Hx smoker (~10pkyr), PFTs (04/17/21). Disability examination (Acute) PFTs, 04/2021 for Disability 2' COPD. Housing or economic problem (Acute) Carpal tunnel syndrome of left wrist (Acute) Cubital bursitis of right elbow (Acute) Type 2 diabetes mellitus with diabetic polyneuropathy (Acute) Persistent proteinuria associated with type 2 diabetes mellitus (Acute) Cervical neuropathy (Acute) Tendonitis of long head of biceps brachii of right shoulder (Acute) Bursitis of right shoulder (Acute) Right shoulder pain (Acute) Acute on chronic issue: now with elbow and hand pain (ulnar), with tingling. Nasal polyp (Acute) Pt report based on past ENT 06/02/[address] Haque - surgical correction planned Allergic rhinitis due to allergen (Acute) Nasal turbinate hypertrophy (Acute) Other chronic sinusitis (Acute) Deviated nasal septum (Acute) Seasonal allergies (Acute) Corneal opacification (Acute) OS Proliferative retinopathy of both eyes (Acute) Full PRP OD ICD (implantable cardioverter-defibrillator) in place (Acute) ICD, single lead, Medtronic Visia 04/27/2018 [place], [place] Vitamin D deficiency (Acute) Erectile dysfunction (Acute) Testicular cancer (Acute) Secondary hyperparathyroidism (Acute) Medical History Diabetic foot ulcer associated with type 2 diabetes mellitus RESOLVED with amputation. 09/30/20-R heel w/cellulitis-Dr Kevin,DPM 10/16/20 Debridement by Podiatry [place] [facility] [place] [facility] [place] Heel Ulcer - cont close wound care by Podiatry Finger pain, left Could this be gout? No injury. Trial Naproxen. Hx: recurrent pneumonia walking pneumonia most vines x 3 years Nasal polyps Psoriasis Surgical History History of amputation of great toe Right History of amputation of left lower extremity History of cardiac defibrillator placement History of cataract removal with insertion of prosthetic lens (~03/02/18) Right History of cystoscopy (~12/25/13) History of gastric bypass (~07/01/14) History of orchiectomy, unilateral (~06/1999) Right History of tonsillectomy (~1979) 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 Family History Mother Diabetes Father Diabetes Heart disease Hypertension Sister Diabetes Brother Diabetes Brother Diabetes Heart disease Hypertension Social History Smoking/Tobacco Use Status: Former Tobacco Use Quit Date: 07/18/98 Tobacco: How many years used: 10 Smoking risk assessment performed?: Yes Alcohol Intake: current Alcohol Intake frequency: 0-2 drinks per day Alcohol type: hard liquor Substance use type: does not use Adopted: No Caregiver/Support person: No Foster care: No Household members: significant other Housing: house Do you need help understanding health information?: Rarely current occupation: Unemployed Sexually active: Yes Do you think of yourself as: straight/heterosexual Current gender identity: male Do you feel safe at home: Yes Do you feel safe in your relationship?: Yes Meds Allergies and Home Medications Allergies Allergy/AdvReac Type Severity Reaction Status Date / Time No Known Allergies Allergy Verified 12/17/21 14:07 Home Medications Medication Instructions Recorded Confirmed Type pseudoephedrine HCl 240 mg 240 mg PO DAILY PRN 04/02/20 12/17/21 History tablet,extended release 24 hr tramadol 100 mg tablet,extended 100 mg PO DAILY #10 tabs 07/16/20 12/17/21 Rx release 24 hr Amputation Compression Sleeve #1 ea 01/26/21 12/17/21 Rx ascorbic acid (vitamin C) 1,000 mg 1 g PO Q6H #90 tabs 03/05/21 12/17/21 Rx tablet aspirin 81 mg tablet,delayed 81 mg PO DAILY #90 tabs 03/05/21 12/17/21 Rx release atorvastatin 10 mg tablet 10 mg PO DAILY #90 tabs 03/05/21 12/17/21 Rx azelastine 137 mcg (0.1 %) nasal See Rx Instructions intranasal BID 03/05/21 12/17/21 Rx spray aerosol #30 mL carvedilol 12.5 mg tablet 12.5 mg PO BID #180 tabs 03/05/21 12/17/21 Rx cetirizine 10 mg tablet 10 mg PO DAILY #90 tabs 03/05/21 12/17/21 Rx cholecalciferol (vitamin D3) 25 25 mcg PO DAILY #90 caps 03/05/21 12/17/21 Rx mcg (1,000 unit) capsule cyanocobalamin (vitamin B-12) 1,000 mcg PO DAILY #90 caps 03/05/21 12/17/21 Rx 1,000 mcg capsule dupilumab 200 mg/1.14 mL 200 mg (1.14 mL) subcut Q2W #2.28 03/05/21 12/17/21 Rx subcutaneous syringe ([employer]) mL flash glucose scanning reader #1 ea 03/05/21 12/17/21 Rx ([employer] Luis 2 [place]) fluticasone 250 mcg-salmeterol 50 1 inh inhalation BID #60 ea 03/05/21 12/17/21 Rx mcg/dose blistr powdr for inhalation (Advair Diskus) fluticasone propionate 50 1 spray intranasal DAILY #16 grams 03/05/21 12/17/21 Rx mcg/actuation nasal spray,suspension (Allergy Relief (fluticasone)) halobetasol propionate 0.05 % 1 applic topical DAILY PRN 03/05/21 12/17/21 Rx topical cream psoriasis #50 grams ibuprofen 800 mg tablet 800 mg PO Q8H PRN pain #30 tabs 03/05/21 12/17/21 Rx lisinopril 10 mg tablet 10 mg PO DAILY #90 tabs 03/05/21 12/17/21 Rx magnesium oxide 500 mg tablet 500 mg PO DAILY #90 tabs 03/05/21 12/17/21 Rx omeprazole 20 mg capsule,delayed 20 mg PO DAILY #90 caps 03/05/21 12/17/21 Rx release silver sulfadiazine 1 % topical 1 applic topical BID #400 grams 03/05/21 12/17/21 Rx cream insulin lispro 100 unit/mL 1 sliding scale dose subcut 03/09/21 12/17/21 Rx subcutaneous solution USEASDIRECTD #10 mL flash glucose sensor (FreeStyle #6 ea 04/17/21 12/17/21 Rx Luis 2 Sensor kit) fore arm cuff crutches #1 ea 06/07/21 12/17/21 Rx nicotine (polacrilex) 2 mg buccal 2 mg buccal Q6H PRN nicotine 06/16/21 12/17/21 Rx lozenge (Nicorette) cravings #108 ea clobetasol 0.05 % topical spray 1 applic topical BID 1 week #59 mL 08/09/21 12/17/21 Rx gacujkvt-ciqoippro-coomfhunx 3.5 4 drp otic (ear) QID #10 mL 08/09/21 12/17/21 Rx mg/mL-10,000 unit/mL-1 % ear solution albuterol sulfate 90 mcg/actuation 2 puff inhalation Q6H PRN 08/18/21 12/17/21 History aerosol inhaler cyclobenzaprine 10 mg tablet 10 mg PO BID PRN muscle spasm #30 09/04/21 12/17/21 Rx tabs diazepam 5 mg tablet (Valium) 5 mg PO QHS PRN sleep #7 tabs 09/04/21 12/17/21 Rx insulin lispro 100 unit/mL 1 sliding scale dose subcut 10/27/21 12/17/21 Rx subcutaneous pen (Humalog KwikPen USEASDIRECTD DM, E11.8 .. to jeep (U-100) Insulin) A1C < 7.5 #15 mL spironolactone 25 mg tablet 25 mg PO DAILY #60 tabs 11/23/21 12/17/21 Rx insulin glargine 100 unit/mL (3 30 unit subcut QPM 12/04/21 12/17/21 History mL) subcutaneous pen (Lantus Solostar U-100 Insulin) Left Outer Sleeve #1 ea 12/07/21 12/17/21 Rx RIGHT Prosthesis Adjustments #1 ea 12/07/21 12/17/21 Rx dapagliflozin 5 mg tablet (Farxiga) 5 mg PO DAILY T 2 DM not at goal, 12/07/21 12/17/21 Rx stage 3 CKD #90 tabs wheel chair maintence 12/07/21 12/17/21 History wheel chair seat 12/07/21 12/17/21 History Wheelchair Maintenance #1 ea 12/13/21 12/17/21 Rx Wheelchair Seat #1 ea 12/13/21 12/17/21 Rx halobetasol propionate 0.05 % 1 applic topical DAILY 12/15/21 12/17/21 History topical cream doxycycline hyclate 100 mg capsule 100 mg PO BID #7 caps 12/16/21 12/17/21 Rx furosemide 40 mg tablet 40 mg PO BID DIURETIC #90 tabs 12/16/21 12/17/21 Rx prednisone 20 mg tablet 40 mg PO DAILY #8 tabs 12/16/21 12/17/21 Rx Exam Narrative Exam Narrative: Obese white male sitting up in bed watching TV. Alert and oriented x3 HEENT is unremarkable Neck is supple nontender obese difficult to discern JVD. Lungs: Harsh bilateral basilar rales, no rhonchi and no wheezing Heart is regular I did not appreciate murmur or rub. Abdomen obese soft and nontender Scrotum edematous, penis edematous Thoracic tenderness along with swelling of the amputation stump Skin without any breakdown or erythema Neuro exam no focal motor deficits sensory exam not performed no focal cranial nerve abnormalities. xK)1k(([id number]$p Results Labs Result diagrams: 12/17/21 14:30 12/18/21 06:30 Labs: Laboratory Results - last 24 hr 12/17/21 12/17/21 14:30 14:30 WBC 12.96 H RBC 4.61 Hgb 13.2 L Hct 42.2 MCV 92 MCH 28.6 MCHC 31.3 L D RDW 15.4 H Plt Count 179 MPV 10.7 Immature Gran % 0.3 Neutrophils % 89.8 Lymphocytes % 5.6 Monocytes % 4.1 Eosinophils % 0.0 Basophils % 0.2 Nucleated RBC % 0.0 Absolute Neutrophils 11.64 H Absolute Lymphocytes 0.73 L Absolute Monocytes 0.53 Absolute Eosinophils 0.00 Absolute Basophils 0.03 Sodium 135 L Potassium 5.0 Chloride 100 Carbon Dioxide 28.1 Anion Gap 6.9 BUN 74 H Creatinine 2.9 H Estimated GFR/1.73 m2 23.06 Glucose 413 H Calcium 7.8 L Magnesium 2.1 Total Bilirubin 0.3 AST 21 ALT 13 L Alkaline Phosphatase 107 Troponin I 297 H* NT-Pro-B Natriuret Pep 38466 H Total Protein 5.5 L Albumin 2.0 L Last Vital Signs Temp 36.0 C L 12/17/21 17:01 Pulse 78 12/17/21 17:01 Resp 20 12/17/21 17:01 BP 138/88 12/17/21 17:01 Pulse Ox 93 12/17/21 17:01
[2021-12-17 18:27] LABS: Source Nasal/Nares
[2021-12-17 18:46] LABS: Troponin I 307 ng/L (<or=60)
[2021-12-17] MEDS: Carvedilol 12.5 MG TAB PO (21:29)
[2021-12-17] MEDS: Enoxaparin 40 MG/0.4 ML SYR SC (21:29)
[2021-12-17] MEDS: Silver sulfaDIAZINE 1% 25 GM TUBE TP (21:29)
[2021-12-17] MEDS: Doxycycline Hyclate 100 MG CAP PO (21:29)
[2021-12-17] MEDS: Insulin Glargine 300 UNITS/3 ML PEN 30 UNITS SC (21:30)
[2021-12-17] MEDS: Insulin Aspart 300 UNITS/3 ML PEN SC (21:40)
[2021-12-17] MEDS: Budesonide/Formoterol 160/4.5 6 GM 60 PUFF INH IH (21:41)
[2021-12-17 21:54] LABS: COVID-19 PCR Negative (Negative)
[2021-12-17 23:28] LABS: Troponin I 303 ng/L (<or=60)
[2021-12-18] VITALS (7 sets, daily range): BP systolic 131–151; BP diastolic 81–96; PULSE 60–99; RESP 15–17; TEMP 35.4–36.2; O2SAT 91–95
[2021-12-18] MEDS: Ascorbic Acid 500 MG TAB 1000 MG PO ×5 (01:05→23:55)
[2021-12-18 06:59] LABS: Anion Gap 5.3 mmol/L (3-11); BUN 73 mg/dL (7-18); CO2 30.7 mmol/L (21.0-32.0); CREATININE 2.7 mg/dL (0.70-1.30); Calcium 7.9 mg/dL (8.5-10.1); Chloride 99 mmol/L (98-107); Estimated GFR 25.04 (mL/min/1.73m2); Glucose 287 mg/dL (74-106); Magnesium 1.9 mg/dL (1.8-2.4); Potassium 4.2 mmol/L (3.5-5.1); Sodium 135 mmol/L (136-145)
[2021-12-18 07:02] LABS: Troponin I 298 ng/L (<or=60)
[2021-12-18] MEDS: Insulin Aspart 300 UNITS/3 ML PEN SC ×6 (08:49→22:44)
[2021-12-18] MEDS: Aspirin E.C. 81 MG TABEC PO (08:52)
[2021-12-18] MEDS: Budesonide/Formoterol 160/4.5 6 GM 60 PUFF INH IH ×2 (08:52→19:54)
[2021-12-18] MEDS: Cetirizine 10 MG TAB PO (08:58)
[2021-12-18] MEDS: Carvedilol 12.5 MG TAB PO ×2 (08:58→19:54)
[2021-12-18] MEDS: Cyanocobalamin 500 MCG TAB 1000 MCG PO (08:58)
[2021-12-18] MEDS: Cholecalciferol (Vitamin D3) 1,000 UNIT TAB 1000 UNITS JT (08:58)
[2021-12-18] MEDS: Lisinopril 10 MG TAB PO (08:59)
[2021-12-18] MEDS: Doxycycline Hyclate 100 MG CAP PO ×2 (08:59→19:54)
[2021-12-18] MEDS: Magnesium Oxide 400 MG TAB PO (08:59)
[2021-12-18] MEDS: Omeprazole 20 MG CAPCR PO (09:00)
[2021-12-18] MEDS: Spironolactone 25 MG TAB PO (09:00)
[2021-12-18] MEDS: Silver sulfaDIAZINE 1% 25 GM TUBE TP ×2 (09:05→19:54)
--- NOTE | 2021-12-18 09:28 | PDOC.CMIN ---
- If Service Date Differs Date of service: 12/18/21 Time of Service: 09:28 Care Management Initial Assess REASON FOR HOSPITALIZATION:: CHF exacerbation PAST MEDICAL HISTORY/PAST SURGICAL HISTORY:: All Active Problems . Discharge planning issues (Acute). Dermatitis, unspecified (Acute ~11/2021). 12/07/21 Dermatology. Coronary artery disease (Chronic). CHF exacerbation (Acute). COPD exacerbation (Acute). Elevated brain natriuretic peptide (BNP) level (Acute). thought to be near baseline, but unclear Hx. Edema (Acute). Edema of abdomen (Acute). Fluid overload (Acute). 2' inactivity, diet, renal insufficiency, hyperglycemia. Chronic systolic CHF (congestive heart failure) (Acute). 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 08/2019 Cr 1.74 ... Elevated in 2020 2' Inf/ABx/HyperGly .. [ ] re-check 03/2021! Hypertension associated with diabetes (Acute). Diabetes mellitus with complication in adult patient (Chronic). Renal insufficiency (Chronic). Hyperglycemia due to diabetes mellitus (Acute). Chronic posttraumatic stress disorder (Acute). Neck pain (Acute). acute .. due to sleeping on sofa?? coughing? History of anemia (Chronic). History of posttraumatic stress disorder (PTSD) (Acute). Long Hx, Restarted with counselor, Madison Harris. Adjustment reaction to chronic stress (Acute). Social isolation (Acute). Amputee, lower limb (Acute). Double Amputee, 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 Working with [employer] re: prosthetics.. Hx of right BKA (Acute). Decreased range of motion (ROM) of right knee (Acute). Flexion ok; Extension is difficult .. Continues to work with PT. Amputee, below knee (Chronic). Rt, November 2020. Lft, 2018 (?). GERD (gastroesophageal reflux disease) (Chronic). PPI. COPD (chronic obstructive pulmonary disease) (Chronic). Hx smoker (~10pkyr), PFTs (04/17/21). Disability examination (Acute). PFTs, 04/2021 for Disability 2' COPD. Housing or economic problem (Acute). Carpal tunnel syndrome of left wrist (Acute). Cubital bursitis of right elbow (Acute). Type 2 diabetes mellitus with diabetic polyneuropathy (Acute). Persistent proteinuria associated with type 2 diabetes mellitus (Acute). Cervical neuropathy (Acute). Tendonitis of long head of biceps brachii of right shoulder (Acute). Bursitis of right shoulder (Acute). Right shoulder pain (Acute). Acute on chronic issue: now with elbow and hand pain (ulnar), with tingling. Nasal polyp (Acute). Pt report based on past ENT. 06/02/[address] Haque - surgical correction planned. Allergic rhinitis due to allergen (Acute). Nasal turbinate hypertrophy (Acute). Other chronic sinusitis (Acute). Deviated nasal septum (Acute). Seasonal allergies (Acute). Corneal opacification (Acute). OS. Proliferative retinopathy of both eyes (Acute). Full PRP OD. ICD (implantable cardioverter-defibrillator) in place (Acute). ICD, single lead, Medtronic Visia 04/27/2018 [place], [place]. Vitamin D deficiency (Acute). Erectile dysfunction (Acute). Testicular cancer (Acute). Secondary hyperparathyroidism (Acute). Medical History . Diabetic foot ulcer associated with type 2 diabetes mellitus. RESOLVED with amputation. 09/30/20-R heel w/cellulitis-Dr Herberth DPM. 10/16/20 Debridement by Podiatry. 10/30/20 [facility] [place] [facility] [place] Heel Ulcer - cont close wound care by Podiatry. Finger pain, left. Could this be gout? No injury. Trial Naproxen. Hx: recurrent pneumonia. walking pneumonia most x 3 years. Nasal polyps. Psoriasis. Surgical History . History of amputation of great toe. Right. History of amputation of left lower extremity. History of cardiac defibrillator placement. History of cataract removal with insertion of prosthetic lens (~03/02/18). Right. History of cystoscopy (~12/25/13). History of gastric bypass (~07/01/14). History of orchiectomy, unilateral (~06/1999). Right. History of tonsillectomy (~1979). Hx of right BKA. 5/14/21 PREVIOUS FUNCTIONAL STATUS/SOCIAL/FAMILY SUPPORTS:: Maverick lives in [place], [place] with his partner. He uses a wheelchair, and has prosthetics for his bilateral LE amputations. Maverick does not drive at this time. He uses [employer] w/c van for transportation. CURRENT FUNCTIONAL STATUS:: Maverick was lying in bed when CM met with him. He is AAOX3 and easy to engage in conversation. He denies concerns at this time. ADVANCE DIRECTIVES:: None on file, CM will offer forms. Has patient been provided with info about the portal/API?: Yes Did the patient sign up for the portal?: Yes (Prior to admission) CODE STATUS:: Full Code INSURANCE COVERAGE / FINANCIAL ISSUES:: Medicaid, finacial assistance 100 CURRENT HOME/COMMUNITY SERVICES/EQUIPMENT:: [employer] W/[employer] van. Wheel Chair, has prosthetic LE. [facility] Customer Marketing Intern:Mara. Angelo: Sobeida Neville. [facility]: Madison Harris (manager of employee relations). Higher Ability: Jody Rodriguez PRIMARY CARE PHYSICIAN:: Candice Deleon POTENTIAL DISCHARGE NEEDS:: Transportation, Work Note, Resumption of [facility]: RN/PT/OT, add DISTRIBUTION ESTIMATOR PATIENT/FAMILY EDUCATION NEEDS:: Review discharge instructions, limitations, medications and plan to follow up with community providers. ask me three. TRANSPORTATION:: Via [employer] W/C van PLAN:: Maverick requires hospitalization for cardiac monitoring and additional medical workup and testing. Anticipate, Maverick will discharge home with resumption of [facility] RN/PT/OT add DISTRIBUTION ESTIMATOR. He will transport via [employer] w/c van when medically ready. Per Mara at [facility]: pt may benefit from [facility] DISTRIBUTION ESTIMATOR(to help expore Choices for Care eligibility). Maverick will follow up with his community providers and discharge plan of care as prescribed. Readmission - Within the Past 30 Days Yes or No: N - Date of First Admission Date of 1st Admission: 12/14/21 - Date of this Admission Date of Admission: 12/17/21 This admission was: Through ED - Office Visit Since 1st Admission Have you seen your PCP in the office since discharge?: No Date of PCP Appointment: Had an appointment Been Scheduled?: Yes Date of Scheduled Appointment: 12/31/21 - Speicalist Appointments Have you seen any other specialist since your 1st Admission?: No - I. Interview patient and/or Family Difficulty reaching your doctor or getting an office appt?: No Have you had trouble purchasing/ or taking medication?: No Have you had trouble with getting meals at home?: No Did you feel ready for discharge when you left the last time: No Why did you not feel ready for discharge?: Still had alot of edema, had difficulty getting in and out of his wheelchair due to scrotum swelling. Were services received that you thought were set up on disch: Yes What services were received?: Home Health services Did you call your physician beore you came to the ED?: Yes Did your physician tell you to come in?: Yes (advised pt to go the ED for re-eval) - If the patient had a VNA ordered Did the patient have a VNA order?: Yes Did you call the VNA before you came?: Yes Did the VNA tell you to come to the hospital?: Yes Do you know if the VNA called your physician?: No - Ask the Care Team Members: What do you think caused the patient to be readmitted: Maverick's overall health is compromised by many severe and chronic comorbidities. It is likely he needed longer diuresis due to the severity of his edema. - ED visits How many ED visits in the past 12 months: 2
[2021-12-18] MEDS: Normal Saline Flush 10 ML SYR IVP (10:07)
[2021-12-18 14:11] LABS: COVID-19 RT-PCR UVMMC Result Negative (Negative)
[2021-12-18] MEDS: Insulin Glargine 300 UNITS/3 ML PEN 30 UNITS SC (19:55)
[2021-12-18] MEDS: Enoxaparin 40 MG/0.4 ML SYR SC (19:55)
[2021-12-18] MEDS: Atorvastatin 10 MG TAB PO (19:55)
[2021-12-19] VITALS (14 sets, daily range): BP systolic 129–152; BP diastolic 82–96; PULSE 66–87; RESP 4–19; TEMP 35.7–36.5; O2SAT 93–95
[2021-12-19] MEDS: Ascorbic Acid 500 MG TAB 1000 MG PO ×4 (05:26→23:40)
[2021-12-19 06:26] LABS: BUN 76 mg/dL (7-18); CREATININE 2.8 mg/dL (0.70-1.30); Calcium 8.3 mg/dL (8.5-10.1); Chloride 100 mmol/L (98-107); Estimated GFR 24.01 (mL/min/1.73m2); Glucose 217 mg/dL (74-106); Potassium 3.9 mmol/L (3.5-5.1); Sodium 137 mmol/L (136-145)
[2021-12-19] MEDS: Budesonide/Formoterol 160/4.5 6 GM 60 PUFF INH IH ×2 (07:55→20:33)
[2021-12-19] MEDS: traMADol 50 MG TAB 100 MG PO (08:45)
[2021-12-19] MEDS: Doxycycline Hyclate 100 MG CAP PO ×2 (08:47→20:30)
[2021-12-19] MEDS: Cetirizine 10 MG TAB PO (08:47)
[2021-12-19] MEDS: Cyanocobalamin 500 MCG TAB 1000 MCG PO (08:47)
[2021-12-19] MEDS: Carvedilol 12.5 MG TAB PO ×2 (08:47→20:31)
[2021-12-19] MEDS: Magnesium Oxide 400 MG TAB PO (08:47)
[2021-12-19] MEDS: Omeprazole 20 MG CAPCR PO (08:47)
[2021-12-19] MEDS: Cholecalciferol (Vitamin D3) 1,000 UNIT TAB 1000 UNITS JT (08:47)
[2021-12-19] MEDS: Lisinopril 10 MG TAB PO (08:47)
[2021-12-19] MEDS: Spironolactone 25 MG TAB PO (08:47)
[2021-12-19] MEDS: Aspirin E.C. 81 MG TABEC PO (08:47)
[2021-12-19] MEDS: Insulin Aspart 300 UNITS/3 ML PEN SC ×6 (08:48→22:40)
[2021-12-19] MEDS: Silver sulfaDIAZINE 1% 25 GM TUBE TP ×2 (08:51→20:33)
[2021-12-19] MEDS: Torsemide 20 MG TAB 40 MG PO (10:24)
--- NOTE | 2021-12-19 10:39 | W.PM.PROGNOT ---
Date of Service Date of service: 12/19/21 Time of Service: 09:39 Assessment and Plan Assessment and plan (1) Acute on chronic systolic heart failure: Status: Acute Assessment and plan: Discontinue the continuous drip of Lasix. Start torsemide 40 mg daily. Continue spironolactone 25 mg daily. Add Entresto (Sacubitril/valsartan 24 mg / 26 mg) twice a day. (2) COPD (chronic obstructive pulmonary disease): Status: Chronic Assessment and plan: Continue doxycycline 100 mg p.o. twice daily for total of 5 days. Add Spiriva and scheduled dose of Xopenex (3) Elevated troponin I level: Status: Acute Assessment and plan: Believed to be secondary to demand ischemia from acute on chronic CHF. Recommend follow-up stress MPI next week. We will try to get this prior to discharge. (4) Diabetes mellitus with complication in adult patient: Status: Chronic Assessment and plan: Continue Farxiga. Increase Lantus to 35 units qpm and raise SSI to insulin resistant scale and increase his CHO coverage to 1:10 (5) Hypertension associated with diabetes: Status: Acute Assessment and plan: Continue carvedilol, discontinue lisinopril in favor of Entresto, continue spironolactone and change continuous Lasix over to torsemide (6) CKD stage 3 secondary to diabetes: Status: Chronic Assessment and plan: Stable but continued while we adjust his diuretics and add Entresto Subjective Subjective Interval history since last seen: Leroy continues to diurese well. He is down to 140 kg which is down 8 more kilograms from yesterday he is now a total of 12 almost 13 kg from his admission weight. His intake and output is net -5 L yesterday and so far today he is net -4700 mL. Still complains of some scrotal and proximal thigh edema but it is getting better and getting more comfortable to sit on the bedside commode or sit up in the chair without significant discomfort in his scrotum. He has no dyspnea but he is bringing up a little bit of thick white mucus with coughing. He is asking for aerosol treatments. Exam Narrative Exam Narrative: Obese white male sitting up watching TV alert and oriented x3. Chest is very large he has good breath sounds throughout clear anteriorly posteriorly some bibasilar rales Heart is regular rate and rhythm Abdomen obese soft and nontender Proximal thighs with some residual pitting edema he still has some scrotal and penile edema but this is also improving. He was able to get on his prosthetic stockings but he says it still difficult to get his prosthetic legs put on Objective Last Vital Signs Temp 36.0 C L 12/19/21 07:00 Pulse 80 12/19/21 07:00 Resp 19 12/19/21 07:00 BP 152/91 H 12/19/21 07:00 Pulse Ox 94 12/19/21 07:00 Laboratory Results - last 24 hr 12/17/21 12/19/21 15:05 05:50 Sodium 137 Potassium 3.9 Chloride 100 Carbon Dioxide 31.0 Anion Gap 6.0 BUN 76 H Creatinine 2.8 H Estimated GFR/1.73 m2 24.01 Glucose 217 H Calcium 8.3 L SARS-CoV-2 (PCR) Negative Nasopharyn COVID-19 PCR Not Applicable Ref Test Perform Site [facility] [id number] [facility]
[2021-12-19] MEDS: Levalbuterol 1.25 MG/3 ML UPD VIAL UPD ×3 (12:01→20:31)
[2021-12-19] MEDS: Tiotropium Bromide-Respimat 10 PUFF INH 2 PUFF IH (13:52)
[2021-12-19] MEDS: Sacubitril/Valsartan 24 mg/26 mg TAB 1 EACH PO (20:30)
[2021-12-19] MEDS: Atorvastatin 10 MG TAB PO (20:31)
[2021-12-19] MEDS: Enoxaparin 40 MG/0.4 ML SYR SC (20:32)
[2021-12-19] MEDS: Insulin Glargine 300 UNITS/3 ML PEN 35 UNITS SC (20:33)
[2021-12-20] VITALS (19 sets, daily range): BP systolic 92–150; BP diastolic 64–95; PULSE 72–90; RESP 3–19; TEMP 35.8–36.8; O2SAT 92–96
[2021-12-20] MEDS: Ascorbic Acid 500 MG TAB 1000 MG PO ×3 (06:09→18:33)
[2021-12-20 06:21] LABS: Anion Gap 8.9 mmol/L (3-11); BUN 79 mg/dL (7-18); CO2 30.1 mmol/L (21.0-32.0); CREATININE 2.4 mg/dL (0.70-1.30); Calcium 8.1 mg/dL (8.5-10.1); Chloride 100 mmol/L (98-107); Estimated GFR 28.68 (mL/min/1.73m2); Glucose 131 mg/dL (74-106); Potassium 4.3 mmol/L (3.5-5.1); Sodium 139 mmol/L (136-145)
[2021-12-20] MEDS: Aspirin E.C. 81 MG TABEC PO (07:48)
[2021-12-20] MEDS: Doxycycline Hyclate 100 MG CAP PO ×2 (07:48→21:19)
[2021-12-20] MEDS: Spironolactone 25 MG TAB PO ×2 (07:48→11:29)
[2021-12-20] MEDS: traMADol 50 MG TAB 100 MG PO (07:48)
[2021-12-20] MEDS: Torsemide 20 MG TAB 40 MG PO (07:48)
[2021-12-20] MEDS: Sacubitril/Valsartan 24 mg/26 mg TAB 1 EACH PO ×2 (07:48→21:19)
[2021-12-20] MEDS: Cholecalciferol (Vitamin D3) 1,000 UNIT TAB 1000 UNITS JT (07:49)
[2021-12-20] MEDS: Silver sulfaDIAZINE 1% 25 GM TUBE TP ×2 (07:49→21:18)
[2021-12-20] MEDS: Omeprazole 20 MG CAPCR PO (07:49)
[2021-12-20] MEDS: Carvedilol 12.5 MG TAB PO ×2 (07:49→21:19)
[2021-12-20] MEDS: Cetirizine 10 MG TAB PO (07:49)
[2021-12-20] MEDS: Magnesium Oxide 400 MG TAB PO (07:49)
[2021-12-20] MEDS: Cyanocobalamin 500 MCG TAB 1000 MCG PO (07:49)
[2021-12-20] MEDS: Tiotropium Bromide-Respimat 10 PUFF INH 2 PUFF IH (07:59)
[2021-12-20 08:00] LABS: Platelet Count 190 10^3/uL (130-400)
[2021-12-20] MEDS: Budesonide/Formoterol 160/4.5 6 GM 60 PUFF INH IH ×2 (08:00→21:12)
[2021-12-20] MEDS: Levalbuterol 1.25 MG/3 ML UPD VIAL UPD ×4 (08:00→21:13)
[2021-12-20] MEDS: Enoxaparin 40 MG/0.4 ML SYR SC ×2 (09:12→21:13)
--- NOTE | 2021-12-20 10:32 | W.PM.PROGNOT ---
Date of Service Date of service: 12/20/21 Time of Service: 09:32 Assessment and Plan Assessment and plan (1) Acute on chronic systolic heart failure: Status: Acute Assessment and plan: now on torsemide 40 mg daily along w/ spironolactone 25 mg daily. I will increase this to 50 mg daily. I have added Entresto. He is already on carvedilol and Farxiga. (2) COPD (chronic obstructive pulmonary disease): Status: Chronic Assessment and plan: Continue doxycycline 100 mg p.o. twice daily for total of 5 days. Add Spiriva and scheduled dose of Xopenex (3) Elevated troponin I level: Status: Acute Assessment and plan: Believed to be secondary to demand ischemia from acute on chronic CHF. Recommend follow-up stress MPI next week. We will try to get this prior to discharge. (4) Diabetes mellitus with complication in adult patient: Status: Chronic Assessment and plan: Continue Farxiga. Increase Lantus to 35 units qpm and raise SSI to insulin resistant scale and increase his CHO coverage to 1:10. Morning glucose is 114. monitor and adjut his meal time coverage. (5) Hypertension associated with diabetes: Status: Acute Assessment and plan: Continue carvedilol, discontinue lisinopril in favor of Entresto, continue spironolactone and change continuous Lasix over to torsemide (6) CKD stage 3 secondary to diabetes: Status: Chronic Assessment and plan: Stable but continued while we adjust his diuretics and add Entresto Subjective Subjective Interval history since last seen: Leroy overall is feeling better. Scrotal swelling is down. he has lost 15 kg since he presented to the hospital. He still complains of some proximal thigh edema and is having trouble getting his prosthesis sock to stay on over his stumps. He is asking for HALI wraps. Exam Narrative Exam Narrative: Leroy was tired, did not sleep well last night. He was sleeping when I awoke him this morning. However once he is awake he is alert and oriented Lungs: clear Heart: RRR Abdomen; obese, soft, nondistended, normal bowel sounds Legs: 1+ edema of the proximal thighs. the BKA stumps however are not edematous Objective Last Vital Signs Temp 36.6 C 12/20/21 07:33 Pulse 72 12/20/21 08:34 Resp 18 12/20/21 07:33 BP 132/84 12/20/21 07:33 Pulse Ox 92 12/20/21 07:33 Laboratory Results - last 24 hr 12/20/21 12/20/21 05:44 05:44 Plt Count 190 Sodium 139 Potassium 4.3 Chloride 100 Carbon Dioxide 30.1 Anion Gap 8.9 BUN 79 H Creatinine 2.4 H Estimated GFR/1.73 m2 28.68 Glucose 131 H Calcium 8.1 L
[2021-12-20] MEDS: Nystatin POWDER 60 GM JAR TP (21:12)
[2021-12-20] MEDS: Normal Saline Flush 10 ML SYR IVP (21:13)
[2021-12-20] MEDS: Insulin Glargine 300 UNITS/3 ML PEN 35 UNITS SC (21:17)
[2021-12-20] MEDS: Atorvastatin 10 MG TAB PO (21:19)
[2021-12-20] MEDS: Insulin Aspart 300 UNITS/3 ML PEN SC (23:03)
[2021-12-21] VITALS (14 sets, daily range): BP systolic 117–164; BP diastolic 77–112; PULSE 82–104; RESP 4–18; TEMP 35.6–36.6; O2SAT 92–98
[2021-12-21] MEDS: Ascorbic Acid 500 MG TAB 1000 MG PO ×3 (00:16→18:13)
[2021-12-21 06:53] LABS: Anion Gap 4.5 mmol/L (3-11); CO2 34.5 mmol/L (21.0-32.0); CREATININE 2.7 mg/dL (0.70-1.30); Calcium 8.7 mg/dL (8.5-10.1); Chloride 99 mmol/L (98-107); Estimated GFR 25.04 (mL/min/1.73m2); Glucose 191 mg/dL (74-106); Potassium 3.4 mmol/L (3.5-5.1); Sodium 138 mmol/L (136-145)
[2021-12-21 06:59] LABS: BUN 81 mg/dL (7-18)
[2021-12-21] MEDS: Levalbuterol 1.25 MG/3 ML UPD VIAL UPD ×3 (08:39→16:47)
[2021-12-21] MEDS: Tiotropium Bromide-Respimat 10 PUFF INH 2 PUFF IH (08:40)
[2021-12-21] MEDS: Budesonide/Formoterol 160/4.5 6 GM 60 PUFF INH IH ×2 (08:40→20:43)
[2021-12-21] MEDS: Enoxaparin 40 MG/0.4 ML SYR SC ×2 (09:06→20:43)
[2021-12-21] MEDS: traMADol 50 MG TAB 100 MG PO (09:06)
[2021-12-21] MEDS: Sacubitril/Valsartan 24 mg/26 mg TAB 1 EACH PO ×2 (09:07→20:43)
[2021-12-21] MEDS: Doxycycline Hyclate 100 MG CAP PO ×2 (09:07→20:43)
[2021-12-21] MEDS: Cetirizine 10 MG TAB PO (09:07)
[2021-12-21] MEDS: Torsemide 20 MG TAB 40 MG PO (09:07)
[2021-12-21] MEDS: Aspirin E.C. 81 MG TABEC PO (09:07)
[2021-12-21] MEDS: Spironolactone 50 MG TAB PO (09:08)
[2021-12-21] MEDS: Cyanocobalamin 500 MCG TAB 1000 MCG PO (09:08)
[2021-12-21] MEDS: Cholecalciferol (Vitamin D3) 1,000 UNIT TAB 1000 UNITS JT (09:08)
[2021-12-21] MEDS: Magnesium Oxide 400 MG TAB PO (09:08)
[2021-12-21] MEDS: Omeprazole 20 MG CAPCR PO (09:08)
[2021-12-21] MEDS: Nystatin POWDER 60 GM JAR TP ×3 (09:09→21:07)
--- NOTE | 2021-12-21 11:45 | DI.NM_ITS ---
APPROVED REPORT Exam: Pharmacologic Patient Location: In-Patient Room/Bed: 230-A Stress Nurse: Estela Huntley RN Ordering Provider:TEDDY CASTRO, Contact Number: [phone] BMI: 42.11 Baseline Rhythm: Sinus Rhythm Comment: Inverted T waves in leads II, III, aVF, V4, V5, V6 Indications: Dyspnea Medical History Medical History: Acute on chronic HFrER, CAD, COPD, HTN, DM, CKD stage 3, PTSD. double amputee, GERD, ICD,ED Cardiac Medications: Aspirin, Atorvastatin, Symbicort, Carvedilol, Spironolactone, Omeprazole, nicoti ne lozenge, mag oxide, lisinopril, insulin (lispro and glargine), dapagiflozin, albuterol Allergies: NKA Cardiac Risk Factors: +Family history, HTN, HLD, CVD, Diabetes, former smoker, COPD, obesity Previous Cardiac Procedures: history of [place] Pretest Chest Pain Characteristics: No chest pain Exercise History: Sedentary Physical Disabilities: Bilateral lower extremity amputee Lung Sounds: fine crackles in bilateral bases, other lung klein diminished but clear Heart Sounds: s1/s2, regular Stress Test Details Test: Pharmacologic stress testing performed using 0.4 mg of regadenoson per 5 mL given IV over 10 s econds. Reason for pharmacologic stress test: physical limitation. Nuclear Acquisition: Rest Tc-99m/Stress Tc-99m 1 day Rest Isotope: Tc-99m Sestamibi. Dose: 13.5 Date: 12/21/2021 Injection Time: 1130 Stress Isotope: Tc-99m Sestamibi. Dose: 44 Date: 12/21/2021 Injection Time: 1356 HR Resting HR Supine: 83 bpm Max Heart Rate (APMHR): 169.078831 bpm Target HR (85% APMHR): 143.944960 bpm Max HR Achieved: 90 bpm % of APMHR: 53.25 Recovery HR: 88 bpm BP Resting BP Supine: 126/84 mmHg Max BP: 120/78 mmHg Recovery BP: 122/74 mmHg ECG Resting ECG: Sinus Rhythm Ectopy: Rare PVC Stress ECG: Sinus Rhythm ST Change: No significant ST segment changes noted Arrhythmia: Intermittent PVC's, PAC's Recovery ECG: Sinus Rhythm Recovery ST Change: No significant ST segment changes noted Recovery Arrhythmia: Intermittent PVC's Clinical Stress Symptoms: None Rate Pressure Product: 10914 Stress ECG Conclusion 1. Resting electrocardiogram showed right axis deviation, IVCD like incomplete LBBB 2. Patient underwent pharmacologic stress with regadenoson 3. Peak heart rate achieved was 52% of predicted for age 4. Electrocardiographic portion of the test was nondiagnostic due to resting ST-T abnormalities and a n adequate heart rate 5. See MPI report Stress Test Summary STAGE HR BP Symptoms NOTES Supine 83 126/84 1 min post Lexiscan injection 81 120/78 3 min post Lexiscan injection 89 114/76 6 min post Lexiscan injection 88 122/74 MPI Conclusion Myocardial perfusion is abnormal. The inferior wall appears infarcted. Posterior lateral wall has b oth some degree of infarction and superimposed ischemia The anterior wall appears ischemic EF is 18%. There is inferior akinesis. The remainder of the ventricle appears significantly hypocon tractile. The LV is dilated Radiologist Interpretation Radiologist agrees with [employer] T[employer] Blade Repair Technician's Interpretation. Radiologist Interpretation by: Sana Alcantara MD Interpretation Date/Time: 12/21/2021 15:44:32
[2021-12-21] MEDS: Regadenoson 0.4 MG/5 ML SYR IVP (13:56)
--- NOTE | 2021-12-21 14:25 | CMPROGNOTE_ITS ---
- If Service Date Differs Date of service: 12/21/21 Time of Service: 14:25 Care Management Progress Note S/O: Maverick requires hospitalization for cardiac monitoring and additional medical workup and testing. He had a stress test today. RT is helping with neb treatments. He will need a nebulizer for home, if therapy is needed following discharge. Per Mara at [facility]: pt may benefit from [facility] MARKET MANAGER(to help explore Choices for Care eligibility). A: 51 year old male admitted to [facility] on 12/17/21 for CHF exacerbation. P:Anticipate, Maverick will discharge home with resumption of [facility] RN/PT/OT add MARKET MANAGER. He will transport via [facility] w/c van when medically ready. Per Mara at [facility]: pt may benefit from [facility] MARKET MANAGER(to help explore Choices for Care eligibility). Maverick will follow up with his community providers and discharge plan of care as prescribed.
--- NOTE | 2021-12-21 14:25 | PDOC.CMPRO ---
- If Service Date Differs Date of service: 12/21/21 Time of Service: 14:25 Care Management Progress Note S/O: Maverick requires hospitalization for cardiac monitoring and additional medical workup and testing. He had a stress test today. RT is helping with neb treatments. He will need a nebulizer for home, if therapy is needed following discharge. Per Mara at [facility]: pt may benefit from [facility] CLAIMS ADJUSTER(to help explore Choices for Care eligibility). A: 51 year old male admitted to [facility] on 12/17/21 for CHF exacerbation. P:Anticipate, Maverick will discharge home with resumption of [facility] RN/PT/OT add CLAIMS ADJUSTER. He will transport via [facility] w/c van when medically ready. Per Mara at [facility]: pt may benefit from [facility] CLAIMS ADJUSTER(to help explore Choices for Care eligibility). Maverikc will follow up with his community providers and discharge plan of care as prescribed.
[2021-12-21] MEDS: Potassium Chloride 20 MEQ TABCR PO (14:57)
--- NOTE | 2021-12-21 17:12 | W.PM.PROGNOT ---
Date of Service Date of service: 12/21/21 Time of Service: 16:12 Assessment and Plan Assessment and plan (1) Acute on chronic systolic heart failure: Status: Acute Assessment and plan: Patient has improved in terms of his volume status. He was diuresed 16 kg. His weight went from 153 kg down to 137 kg. He is feeling markedly better with improvement in his dyspnea and improvement in his scrotal and leg edema. He is now able to fit his prosthesis on. To complete his work-up I had him undergo a stress MPI study today. Unfortunately is not been signed off by the video production assistant but I got a preliminary report that shows an abnormal stress MPI and the nuclear portion was signed off by the radiologist. Patient has infarcted inferior wall in the posterior lateral wall has some degree of infarction and superimposed ischemia and his anterior wall appears ischemic. LV appears to be dilated and hypocontractile. He has inferior wall akinesis. EF is 18%. I talked to Leroy about this and told him that my advice would be for him to be transferred for cardiac catheterization to see if there is some reversible coronary artery disease that could be stented or bypassed that may improve his LV dysfunction. He is already on statin therapy and aspirin therapy in addition to beta-blockers as well as goal-directed therapy for his congestive heart failure including Farxiga, spironolactone which I have titrated upward to 50 mg daily, I have added Entresto and I have put him on torsemide after having diuresed him with a Lasix drip. He is already on carvedilol. Leroy is agreeable to be referred to tertiary care center for cardiac catheterization. I reached out to [facility] and the transfer center indicated that they have no bed availability either today or tomorrow. I will reach out to [facility] and speak with cardiology there. (2) Ischemic cardiomyopathy: Status: Acute Assessment and plan: As above (3) Elevated troponin I level: Status: Acute Assessment and plan: Elevated troponins were initially attributed to type II demand ischemia secondary to CHF. In retrospect I think he probably had a myocardial infarction prior to his recent hospitalization for COPD exacerbation. Were seeing the aftereffects with the trending downward of his troponins and the subsequent congestive heart failure. He has had no chest pain since his been here and is symptoms for his CHF are improving. (4) CKD stage 3 secondary to diabetes: Status: Chronic Assessment and plan: Stable but continued while we adjust his diuretics and add Entresto (5) COPD (chronic obstructive pulmonary disease): Status: Chronic Assessment and plan: continue Spiriva, change xopenex to prn only, finish doxycycline which was started on his recent admission for COPD exacerbation. No longer coughing up purulent sputum (6) Diabetes mellitus with complication in adult patient: Status: Chronic Assessment and plan: blood sugars 136 to 176 (7) Hypertension associated with diabetes: Status: Acute Assessment and plan: Continue carvedilol, discontinue lisinopril in favor of Entresto, continue spironolactone and torsemide Subjective Subjective Interval history since last seen: Patient was seen earlier this morning and I discussed with him getting a stress MPI study to evaluate for any residual ischemia as a cause for his recurrent CHF. He was agreeable to having the stress MPI study. He has had no chest pain. His shortness of breath is markedly improved. His scrotal and leg edema have also improved. Exam Narrative Exam Narrative: Leroy sitting up in his wheelchair he is alert and oriented per his place time circumstance in no acute respiratory distress. Lungs are clear anteriorly posteriorly is clear except for the very bases of his lungs are some fine rales no rhonchi or wheezing Heart is regular I did not appreciate a murmur Abdomen is obese soft and nontender Proximal thighs show improvement in his edema. His BKA stumps are much improved with no noticeable edema at this point. He was been able to get his prosthesis socks over his stumps. Objective Last Vital Signs Temp 35.7 C L 12/21/21 12:16 Pulse 90 12/21/21 16:49 Resp 17 12/21/21 16:49 BP 142/96 H 12/21/21 12:16 Pulse Ox 98 12/21/21 16:49 Laboratory Results - last 24 hr 12/21/21 06:25 Sodium 138 Potassium 3.4 L Chloride 99 Carbon Dioxide 34.5 H Anion Gap 4.5 BUN 81 H* Creatinine 2.7 H Estimated GFR/1.73 m2 25.04 Glucose 191 H Calcium 8.7 Reviewed Pertinent PMH: Yes Objective Narrative Objective Narrative: Patient stress MPI report is still not been finalized. I was able to review the preliminary report by going down to radiology and looking at it on the screen with the radiology orderly. The stress ECG conclusion was inconclusive as his resting ECG showed right axis deviation and incomplete left bundle branch block. Peak heart rate achieved was 52% of his predicted age. Electrocardiographic portion of the stress test was nondiagnostic due to resting ST-T abnormalities and inadequate heart rate. The MPI portion of the study has been signed off by the radiologist and was abnormal. There is inferior wall infarction. Posterolateral kent have some degree of infarction and superimposed ischemia in the anterior wall appears ischemic. There is inferior akinesis and the remainder of the ventricle appears significantly hypocontractile the LV is dilated with an EF of 18%
[2021-12-21] MEDS: Carvedilol 12.5 MG TAB PO (20:43)
[2021-12-21] MEDS: Atorvastatin 10 MG TAB PO (20:43)
[2021-12-21] MEDS: Insulin Glargine 300 UNITS/3 ML PEN 35 UNITS SC (20:46)
[2021-12-22 03:30] VITALS: BP 119/75; PULSE 86; RESP 18; TEMP 36.6; O2SAT 96
[2021-12-22] MEDS: Ascorbic Acid 500 MG TAB 1000 MG PO ×2 (04:57→12:41)
[2021-12-22 07:00] VITALS: PULSE 85
[2021-12-22 07:11] LABS: Anion Gap 4.4 mmol/L (3-11); BUN 78 mg/dL (7-18); CO2 33.6 mmol/L (21.0-32.0); CREATININE 2.6 mg/dL (0.70-1.30); Calcium 8.5 mg/dL (8.5-10.1); Chloride 100 mmol/L (98-107); Estimated GFR 26.15 (mL/min/1.73m2); Glucose 173 mg/dL (74-106); Potassium 3.8 mmol/L (3.5-5.1); Sodium 138 mmol/L (136-145)
[2021-12-22] MEDS: Tiotropium Bromide-Respimat 10 PUFF INH 2 PUFF IH (07:38)
[2021-12-22] MEDS: Budesonide/Formoterol 160/4.5 6 GM 60 PUFF INH IH (07:38)
[2021-12-22 07:47] VITALS: BP 129/89; PULSE 88; RESP 16; TEMP 36.5; O2SAT 95
[2021-12-22] MEDS: Cholecalciferol (Vitamin D3) 1,000 UNIT TAB 1000 UNITS JT (08:32)
[2021-12-22] MEDS: Torsemide 20 MG TAB 40 MG PO (08:32)
[2021-12-22] MEDS: Aspirin E.C. 81 MG TABEC PO (08:32)
[2021-12-22] MEDS: Enoxaparin 40 MG/0.4 ML SYR SC (08:32)
[2021-12-22] MEDS: Nystatin POWDER 60 GM JAR TP ×2 (08:32→14:00)
[2021-12-22] MEDS: Doxycycline Hyclate 100 MG CAP PO (08:32)
[2021-12-22] MEDS: Sacubitril/Valsartan 24 mg/26 mg TAB 1 EACH PO (08:32)
[2021-12-22] MEDS: Spironolactone 50 MG TAB PO (08:33)
[2021-12-22] MEDS: Cetirizine 10 MG TAB PO (08:33)
[2021-12-22] MEDS: Carvedilol 12.5 MG TAB PO (08:33)
[2021-12-22] MEDS: Omeprazole 20 MG CAPCR PO (08:33)
[2021-12-22] MEDS: traMADol 50 MG TAB 100 MG PO (08:33)
[2021-12-22] MEDS: Magnesium Oxide 400 MG TAB PO (08:33)
[2021-12-22] MEDS: Cyanocobalamin 500 MCG TAB 1000 MCG PO (08:33)
--- NOTE | 2021-12-22 09:22 | CMPROGNOTE_ITS ---
- If Service Date Differs Date of service: 12/22/21 Time of Service: 09:22 Care Management Progress Note S/O: Maverick may discharge home later today with resumption of [facility] RN, add PT/OT/STATOR PLATE WASHER. He will need a nebulizer for home, if therapy is needed following discharge. Per Mara at [facility]: pt may benefit from [facility] STATOR PLATE WASHER(to help explore Choices for Care eligibility). A: 51 year old male admitted to [facility] on 12/17/21 for CHF exacerbation. P:Anticipate, Maverick will discharge home with resumption of [facility] RN, add PT/OT/STATOR PLATE WASHER. He will transport via [facility] w/c van when medically ready. Per Mara at [facility]: pt may benefit from [facility] STATOR PLATE WASHER(to help explore Choices for Care eligibility). Maverick will follow up with his community providers and discharge plan of care as prescribed.
--- NOTE | 2021-12-22 09:22 | PDOC.CMPRO ---
- If Service Date Differs Date of service: 12/22/21 Time of Service: 09:22 Care Management Progress Note S/O: Maverick may discharge home later today with resumption of [facility] RN, add PT/OT/SOLID WASTE DIVISION SUPERVISOR. He will need a nebulizer for home, if therapy is needed following discharge. Per Mara at [facility]: pt may benefit from [facility] SOLID WASTE DIVISION SUPERVISOR(to help explore Choices for Care eligibility). A: 51 year old male admitted to [facility] on 12/17/21 for CHF exacerbation. P:Anticipate, Maverick will discharge home with resumption of [facility] RN, add PT/OT/SOLID WASTE DIVISION SUPERVISOR. He will transport via [facility] w/c van when medically ready. Per Mara at [facility]: pt may benefit from [facility] SOLID WASTE DIVISION SUPERVISOR(to help explore Choices for Care eligibility). Maverick will follow up with his community providers and discharge plan of care as prescribed.
[2021-12-22 11:06] VITALS: BP 108/73; PULSE 82; RESP 18; TEMP 36.5; O2SAT 93
--- NOTE | 2021-12-22 11:35 | CCONE_ITS ---
Date of service: 12/22/21 Time of Service: 11:35 History of Present Illness Narrative: Consult received regarding recent abnormal myocardial perfusion imaging study and need for cardiac catheterization It is noted that no inpatient beds are currently available at [facility], and presumably also at [facility] A [place] been [place] [facility] [place] for right and left heart cath. The patient has had appropriate laboratory studies obtained during his inpatient stay Please note that [facility] is not scheduling elective caths because of the contrast shortage It has been conveyed to them that the patient has multiple issues, LV dysfunction, abnormal nuclear stress test, chronic kidney disease Timing of this diagnostic study depends on their response Patient was not interviewed or examined today FORMERLY [facility], [facility]–1983 All Active Problems (Updated 12/21/21 @ 17:39 by Darek Reynolds) Ischemic cardiomyopathy (Acute) Elevated troponin I level (Acute) Acute on chronic systolic heart failure (Acute) Discharge planning issues (Acute) Dermatitis, unspecified (Acute ~11/2021) 12/07/21 Dermatology Coronary artery disease (Chronic) CHF exacerbation (Acute) COPD exacerbation (Acute) Elevated brain natriuretic peptide (BNP) level (Acute) thought to be near baseline, but unclear Hx Edema (Acute) Edema of abdomen (Acute) Fluid overload (Acute) 2' inactivity, diet, renal insufficiency, hyperglycemia Chronic systolic CHF (congestive heart failure) (Acute) 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 Elevated in 2020 2' Inf/ABx/HyperGly .. [ ] re-check 03/2021! Hypertension associated with diabetes (Acute) Diabetes mellitus with complication in adult patient (Chronic) Renal insufficiency (Chronic) Hyperglycemia due to diabetes mellitus (Acute) Chronic posttraumatic stress disorder (Acute) Neck pain (Acute) acute .. due to sleeping on sofa?? coughing? History of anemia (Chronic) History of posttraumatic stress disorder (PTSD) (Acute) Long Hx, Restarted with counselor, Madison Harris. 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 Working with [employer] re: prosthetics.. Hx of right BKA (Acute) Decreased range of motion (ROM) of right knee (Acute) Flexion ok; Extension is difficult .. Continues to work with PT Amputee, below knee (Chronic) Rt, November 2020. Lft, 2018 (?) GERD (gastroesophageal reflux disease) (Chronic) PPI COPD (chronic obstructive pulmonary disease) (Chronic) Hx smoker (~10pkyr), PFTs (04/17/21). Disability examination (Acute) PFTs, 04/2021 for Disability 2' COPD. Housing or economic problem (Acute) Carpal tunnel syndrome of left wrist (Acute) Cubital bursitis of right elbow (Acute) Type 2 diabetes mellitus with diabetic polyneuropathy (Acute) Persistent proteinuria associated with type 2 diabetes mellitus (Acute) Cervical neuropathy (Acute) Tendonitis of long head of biceps brachii of right shoulder (Acute) Bursitis of right shoulder (Acute) Right shoulder pain (Acute) Acute on chronic issue: now with elbow and hand pain (ulnar), with tingling. Nasal polyp (Acute) Pt report based on past ENT 06/02/[address] Haque - surgical correction planned Allergic rhinitis due to allergen (Acute) Nasal turbinate hypertrophy (Acute) Other chronic sinusitis (Acute) Deviated nasal septum (Acute) Seasonal allergies (Acute) Corneal opacification (Acute) OS Proliferative retinopathy of both eyes (Acute) Full PRP OD ICD (implantable cardioverter-defibrillator) in place (Acute) ICD, single lead, [employer] Visia 04/27/2018 [place], [place] Vitamin D deficiency (Acute) Erectile dysfunction (Acute) Testicular cancer (Acute) Secondary hyperparathyroidism (Acute) Medical History Diabetic foot ulcer associated with type 2 diabetes mellitus RESOLVED with amputation. 09/30/20-R heel w/cellulitis-Dr Kevin,DPM 10/16/20 Debridement by Podiatry 10/30/20 [facility] [place] - RIGHT Heel Ulcer - cont close wound care by Podiatry Finger pain, left Could this be gout? No injury. Trial Naproxen. Hx: recurrent pneumonia walking pneumonia most vines x 3 years Nasal polyps Psoriasis Surgical History History of amputation of great toe Right History of amputation of left lower extremity History of cardiac defibrillator placement History of cataract removal with insertion of prosthetic lens (~03/02/18) Right History of cystoscopy (~12/25/13) History of gastric bypass (~07/01/14) History of orchiectomy, unilateral (~06/1999) Right History of tonsillectomy (~1979) 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 Family History Mother Diabetes Father Diabetes Heart disease Hypertension Sister Diabetes Brother Diabetes Brother Diabetes Heart disease Hypertension Social History Smoking/Tobacco Use Status: Former Tobacco Use Quit Date: 07/18/98 Tobacco: How many years used: 10 Smoking risk assessment performed?: Yes Alcohol Intake: current Alcohol Intake frequency: 0-2 drinks per day Alcohol type: hard liquor Substance use type: does not use Adopted: No Caregiver/Support person: No Foster care: No Household members: significant other Housing: house Do you need help understanding health information?: Rarely current occupation: Unemployed Sexually active: Yes Do you think of yourself as: straight/heterosexual Current gender identity: male Do you feel safe at home: Yes Do you feel safe in your relationship?: Yes Results Last Vital Signs Temp 36.5 C 12/22/21 11:06 Pulse 82 12/22/21 11:06 Resp 18 12/22/21 11:06 BP 108/73 12/22/21 11:06 Pulse Ox 93 12/22/21 11:06 Labs Result diagrams: 12/20/21 05:44 12/22/21 06:45 Labs: Laboratory Results - last 24 hr 12/22/21 06:45 Sodium 138 Potassium 3.8 Chloride 100 Carbon Dioxide 33.6 H Anion Gap 4.4 BUN 78 H Creatinine 2.6 H Estimated GFR/1.73 m2 26.15 Glucose 173 H Calcium 8.5
--- NOTE | 2021-12-22 14:51 | DSE_ITS ---
Date of service: 12/22/21 Time of Service: 14:52 DS: Diagnosis Discharge Diagnosis (1) Acute on chronic systolic heart failure: Status: Acute (2) Positive cardiac stress test: Status: Acute (3) Ischemic cardiomyopathy: Status: Acute (4) Elevated troponin I level: Status: Acute (5) CKD stage 3 secondary to diabetes: Status: Chronic (6) COPD (chronic obstructive pulmonary disease): Status: Chronic (7) Diabetes mellitus with complication in adult patient: Status: Chronic (8) Hypertension associated with diabetes: Status: Acute Discharge Plan Disposition Patient Disposition: HOME W/HOME HEALTH SERVICE Condition: Stable Discharge Details Reason For Visit: Acute Exacerbation of HFREF Admit Date/Time: 12/17/21 16:24 Admit Provider: Darek Reynolds Attending Provider: Darek Reynolds Primary Care Provider: Candice Perez Hospital Course Hospital Course: Mr Serrato is a 51 year old male with PMHx of CAD, ICMO/CHF w/ LVEF of 25-30% by echo, IDDM2 s/p B BKA, non-oxygen dependent COPD, obesity, who was a patient on [facility] hospitalist service from 12/17/21 until 12/22/21 for acute on chronic systolic CHF with evidence of mildly elevated troponin. He was aggressively diuresed with furosemide infusion. He was switched to PO torsemide 40 mg daily, with addition of aldactone 50 mg daily and entresto 24/26 mg 1 tab Po BID. He had an MPI stress test on 12/21/21 which was abnormal, demonstrating abnormal myocardial perfusion, infarcted inferior wall with posterior wall showing both infarction and superimposed ischemia. The anterior wall also appeared ischemic. The LV was dilated and LVEF was 18% by the MPI. The case was reviewed with [facility] cardiology, who felt the patient was appropriate for an outpatient cardiac catheterization and, because he was symptom free, did not require an emergent transfer for a cardiac cath. [facility] did not have beds and are not doing elective cardiac caths at this time due to IV contrast shortage. Therefore, a referral was sent to [facility] cardiology for a cardiac catheterization. The patient will be contacted by the [facility] cardiac cath materials scheduler once his prior authorization goes through. He is medically stable for discharge home today. He will need addition of home health PT, OT, ADOPTION COORDINATOR to his home health nursing. Home health is to do bloodwork (BMP, magnesium) on 12/28/21. Care for patient as well as completion of his discharge summary on day of discharge took 60 minutes. Home Meds and New Rx's Prescriptions: New Entresto 24-26 mg Tablet 1 tab PO BID Qty: 60 0RF torsemide 20 mg Tablet 40 mg PO DAILY Qty: 60 0RF Spiriva Respimat 2.5 mcg/actuation Mist 2 puff inhalation DAILY Qty: 4 0RF levalbuterol tartrate 45 mcg/actuation HFA aerosol inhaler 2 inh inhalation Q6H PRN PRN (Reason: shortness of breath or wheezing) Qty: 15 0RF spironolactone 50 mg Tablet 50 mg PO DAILY Qty: 30 0RF Continued tramadol 100 mg tablet extended release 24 hr 100 mg PO DAILY Qty: 10 0RF Rx Instructions: trial for severe shldr pain to allow for sleep [id number]-PD 3.5-10,000-1 mg/mL-unit/mL-% solution 4 drp otic (ear) QID Qty: 10 1RF clobetasol 0.05 % spray,non-aerosol 1 applic topical BID 7 Days Qty: 59 1RF Rx Instructions: not to exceed 26 sprays per single application (DME) Left Outer Sleeve See Rx Instructions .Route .MEDSUPPLY Qty: 1 0RF Rx Instructions: As directed (DME) RIGHT Prosthesis Adjustments See Rx Instructions .Route .MEDSUPPLY Qty: 1 0RF Rx Instructions: As directed Farxiga 5 mg tablet 5 mg PO DAILY Qty: 90 1RF aspirin 81 mg tablet,delayed release (DR/EC) 81 mg PO DAILY Qty: 90 3RF atorvastatin 10 mg tablet 10 mg PO DAILY Qty: 90 3RF azelastine 137 mcg (0.1 %) aerosol,spray See Rx Instructions intranasal BID Qty: 30 1RF Rx Instructions: 1-2 sprays intranasal twice a day; administer into each nostril carvedilol 12.5 mg tablet 12.5 mg PO BID Qty: 180 3RF Rx Instructions: must administer with a meal/food cetirizine 10 mg tablet 10 mg PO DAILY Qty: 90 3RF cholecalciferol (vitamin D3) 25 mcg (1,000 unit) capsule 25 mcg PO DAILY Qty: 90 3RF cyanocobalamin (vitamin B-12) 1,000 mcg capsule 1,000 mcg PO DAILY Qty: 90 3RF Dupixent Syringe 200 mg/1.14 mL syringe 200 mg subcut Q2W Qty: 2.28 3RF (DME) FreeStyle Luis 2 [facility] [place] Rx Instructions .ROUTE .MEDSUPPLY Qty: 1 0RF Rx Instructions: As directed fluticasone propion-salmeterol [Advair Diskus] 250-50 mcg/dose blister with device 1 inh inhalation BID Qty: 60 0RF fluticasone propionate [Allergy Relief (fluticasone)] 50 mcg/actuation spray, suspension 1 spray intranasal DAILY Qty: 16 1RF Rx Instructions: administer into each nostril halobetasol propionate 0.05 % cream 1 applic topical DAILY PRN (Reason: psoriasis) Qty: 50 1RF magnesium oxide 500 mg tablet 500 mg PO DAILY Qty: 90 3RF omeprazole 20 mg capsule,delayed release(DR/EC) 20 mg PO DAILY Qty: 90 3RF silver sulfadiazine 1 % cream 1 applic topical BID Qty: 400 3RF Hold Instructions: Home Medication placed on hold at Doctor's office Rx Instructions: apply a 1.5 mm thickness cyclobenzaprine 10 mg tablet 10 mg PO BID PRN (Reason: muscle spasm) Qty: 30 1RF Rx Instructions: Trial for neck stiffness/spasm. Do NOT use with Tramadol. diazepam [Valium] 5 mg tablet 5 mg PO QHS PRN (Reason: sleep) Qty: 7 0RF Rx Instructions: Trial for severe neck spasm, splinting. (DME) Amputation Compression Sleeve See Rx Instructions .Route .MEDSUPPLY Qty: 1 0RF Rx Instructions: Please provide and fit a compression sleeve to the left BKA stump for appropriate prosthesis wear. insulin lispro 100 unit/mL solution 1 sliding scale dose subcut USEASDIRECTD MDD 10u Qty: 10 3RF Rx Instructions: [facility] [place] Endo - current correction of 1u:30mg/dl, starting at 130mg/dl per pt. 01/06/21 (DME) FreeStyle Luis 2 Sensor Kit See Rx Instructions .ROUTE .MEDSUPPLY Qty: 6 3RF Rx Instructions: As directed (DME) fore arm cuff crutches See Rx Instructions .Route .MEDSUPPLY Qty: 1 0RF Rx Instructions: dispense 1 pair nicotine (polacrilex) [Nicorette] 2 mg lozenge 2 mg buccal Q6H PRN (Reason: nicotine cravings) Qty: 108 1RF insulin lispro [Humalog KwikPen Insulin] 100 unit/mL insulin pen 1 sliding scale dose subcut USEASDIRECTD Qty: 15 1RF (DME) wheel chair seat See Rx Instructions .Route .MEDSUPPLY Hold Instructions: Home Medication placed on hold at Doctor's office Rx Instructions: Replace wheel chair with 4inch padded seat (DME) wheel chair maintence 0 .Route .MEDSUPPLY Hold Instructions: Home Medication placed on hold at Doctor's office (DME) Wheelchair Maintenance See Rx Instructions .Route .MEDSUPPLY Qty: 1 0RF Rx Instructions: As directed to maintain safe transportation (DME) Wheelchair Seat 4 See Rx Instructions .Route .MEDSUPPLY Qty: 1 0RF Rx Instructions: Replace wheel chair with 4inch padded seat halobetasol propionate 0.05 % cream 1 applic topical DAILY Rx Instructions: 12/07/21 apply 1-2x/day qd for 7-14 days, then 1 week off, and repeat as needed (DME) wheelchair Device See Rx Instructions .ROUTE Rx Instructions: Evaluate and repair wheelchair seat, arm rests and other repairs as needed during evaluation. Changed ascorbic acid (vitamin C) 1,000 mg tablet 1 g PO DAILY Qty: 90 1RF Lantus Solostar U-100 Insulin 100 unit/mL (3 mL) insulin pen 35 unit subcut QPM Qty: 0 0RF Discontinued ibuprofen 800 mg tablet 800 mg PO Q8H PRN (Reason: pain) Qty: 30 1RF Rx Instructions: Trial x 3 days then BID lisinopril 10 mg tablet 10 mg PO DAILY Qty: 90 3RF albuterol sulfate 90 mcg/actuation HFA aerosol inhaler 2 puff inhalation Q6H PRN pseudoephedrine HCl 240 mg tablet extended release 24 hr 240 mg PO DAILY PRN Hold Instructions: Home Medication placed on hold at Doctor's office spironolactone 25 mg tablet 25 mg PO DAILY Qty: 60 1RF Rx Instructions: Trial when taking Lasix BID; take in afternoon with extra lasix dose. prednisone 20 mg Tablet 40 mg PO DAILY Qty: 8 0RF doxycycline hyclate 100 mg capsule 100 mg PO BID Qty: 7 0RF furosemide 40 mg tablet 40 mg PO BID DIURETIC Qty: 90 3RF Discharge Instructions Instructions: Heart Failure (DC), Heart Catheterization (DC) Additional Instructions: Follow a 2 gram sodium diet. Follow up with [facility] cardiology for a cardiac cath ([facility] [place] is not currently doing outpatient cardiac catheterization procedures). [facility] cardiology will contact you to schedule this appointment. Return to the hospital with any fever, bleeding, chest pain, shortness of breath, worsening swelling. Care Plan Goals: Resumption of Home Health nursing; addition of new home health PT, OT, ADOPTION COORDINATOR. Stand Alone Forms: Nursing Discharge Form Referrals: Wesley Lee DO [OSTEOPATHIC DOCTOR] - 12/31/21 9:45 am Activity:: Activity as Tolerated Equipment/Supplies:: No Equipment Needed Diet:: 2 gram sodium Discharge Orders Discharge Orders: Discharge Order (Routine); Ordered 12/22/21 Ordered By: Maryann Skinner DS: Summary Time Spent with Patient providing and/or coordinating discharge services: Greater than 30 minutes Status at Discharge Functional status at discharge: uses cane/walker Overall status at discharge: patient is back to baseline Mental Status: mental status grossly normal Speech and Movement: speech and movement normal Mood: congruent mood Affect: normal affect Exam Narrative Exam Narrative: General: Obese male who is A&Ox3, laying comfortably nearly flat in bed, no dyspnea/tachypnea HEENT: Eyes closed (answers to questions, however, so awake), MMM Heart: RRR, no m/r/g Lungs: CTAB Abdomen: soft,nontender, nondistended Extremities: s/p B BKA Psych Mental Status: mental status grossly normal Speech and Movement: speech and movement normal Mood: congruent mood Affect: normal affect DS: Data Vitals/I&O Vitals and I&O: Vital Signs Temperature 36.5 C 12/22/21 11:06 Temperature Source Tympanic 12/22/21 11:06 Pulse 82 12/22/21 11:06 Pulse Rhythm Regular 12/22/21 10:31 Pulse 66 12/17/21 15:01 Respiratory Rate 18 12/22/21 11:06 Respiratory Effort Non-Labored 12/22/21 10:31 Respiratory Depth Normal 12/22/21 10:31 Respiratory Pattern Normal 12/22/21 10:31 Blood Pressure 108/73 12/22/21 11:06 Blood Pressure Mean 92 12/17/21 15:01 Blood Pressure Position Sitting 12/17/21 14:03 Pulse Oximetry 93 12/22/21 11:06 Oxygen Delivery Method Room Air 12/22/21 11:06 Oxygen Flow Rate 0 12/22/21 11:06 Pain Level 0 12/22/21 11:06 Comment 12/21/21 08:45 Intake & Output 12/21/21 12/22/21 12/22/21 23:59 11:59 23:59 Intake Total 1020 / 1120 370 / 490 120 / 490 Output Total 2550 / 3950 1030 / 1030 Balance -1530 / -2830 -660 / -540 120 / -540 Weight 131.6 kg Intake: Oral 1020 / 1120 370 / 490 120 / 490 Output: Urine 2550 / 3950 1030 / 1030 Other: Urine Color Yellow Yellow Urine Appearance Clear Clear Comment pT was heavily incont, total bed change. also voided 450 in urinal Voiding Methods Urinal Urinal Data Completed and Pending Completed studies during hospitalization [Text1]: CXR: Right lower lobe infiltrate.? Probably also left lower lobe infiltrate.? No pleural effusions. Cardiac pacemaker.? No pulmonary edema. MPI stress test: Myocardial perfusion is abnormal.? The inferior wall appears infarcted.? Posterior lateral wall has both some degree of infarction and superimposed ischemia The anterior wall appears ischemic EF is 18%.? There is inferior akinesis.? The remainder of the ventricle appears significantly hypocontractile.? The LV is dilated Labs on day of discharge: Labs from last 24 hours 12/22/21 06:45 Sodium 138 Potassium 3.8 Chloride 100 Carbon Dioxide 33.6 H Anion Gap 4.4 BUN 78 H Creatinine 2.6 H Estimated GFR/1.73 m2 26.15 Glucose 173 H Calcium 8.5 PFSH All Active Problems (Updated 12/22/21 @ 14:52 by Maryann Skinner MD) Positive cardiac stress test (Acute) Ischemic cardiomyopathy (Acute) Elevated troponin I level (Acute) Acute on chronic systolic heart failure (Acute) Discharge planning issues (Acute) Dermatitis, unspecified (Acute ~11/2021) 12/07/21 Dermatology Coronary artery disease (Chronic) CHF exacerbation (Acute) COPD exacerbation (Acute) Elevated brain natriuretic peptide (BNP) level (Acute) thought to be near baseline, but unclear Hx Edema (Acute) Edema of abdomen (Acute) Fluid overload (Acute) 2' inactivity, diet, renal insufficiency, hyperglycemia Chronic systolic CHF (congestive heart failure) (Acute) 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 Elevated in 2020 2' Inf/ABx/HyperGly .. [ ] re-check 03/2021! Hypertension associated with diabetes (Acute) Diabetes mellitus with complication in adult patient (Chronic) Renal insufficiency (Chronic) Hyperglycemia due to diabetes mellitus (Acute) Chronic posttraumatic stress disorder (Acute) Neck pain (Acute) acute .. due to sleeping on sofa?? coughing? History of anemia (Chronic) History of posttraumatic stress disorder (PTSD) (Acute) Long Hx, Restarted with counselor, Madison Harris. 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 Working with [employer] re: prosthetics.. Hx of right BKA (Acute) Decreased range of motion (ROM) of right knee (Acute) Flexion ok; Extension is difficult .. Continues to work with PT Amputee, below knee (Chronic) Rt, November 2020. Lft, 2018 (?) GERD (gastroesophageal reflux disease) (Chronic) PPI COPD (chronic obstructive pulmonary disease) (Chronic) Hx smoker (~10pkyr), PFTs (04/17/21). Disability examination (Acute) PFTs, 04/2021 for Disability 2' COPD. Housing or economic problem (Acute) Carpal tunnel syndrome of left wrist (Acute) Cubital bursitis of right elbow (Acute) Type 2 diabetes mellitus with diabetic polyneuropathy (Acute) Persistent proteinuria associated with type 2 diabetes mellitus (Acute) Cervical neuropathy (Acute) Tendonitis of long head of biceps brachii of right shoulder (Acute) Bursitis of right shoulder (Acute) Right shoulder pain (Acute) Acute on chronic issue: now with elbow and hand pain (ulnar), with tingling. Nasal polyp (Acute) Pt report based on past ENT 06/02/[address] Haque - surgical correction planned Allergic rhinitis due to allergen (Acute) Nasal turbinate hypertrophy (Acute) Other chronic sinusitis (Acute) Deviated nasal septum (Acute) Seasonal allergies (Acute) Corneal opacification (Acute) OS Proliferative retinopathy of both eyes (Acute) Full PRP OD ICD (implantable cardioverter-defibrillator) in place (Acute) ICD, single lead, [employer] Visia 04/27/2018 [place], [place] Vitamin D deficiency (Acute) Erectile dysfunction (Acute) Testicular cancer (Acute) Secondary hyperparathyroidism (Acute) Medical History Diabetic foot ulcer associated with type 2 diabetes mellitus RESOLVED with amputation. 09/30/20-R heel w/cellulitis-Dr Kevin,DPDilia 10/16/20 Debridement by Podiatry 10/30/20 [facility] [place]ascular - RIGHT Heel Ulcer - cont close wound care by Podiatry Finger pain, left Could this be gout? No injury. Trial Naproxen. Hx: recurrent pneumonia walking pneumonia most vines x 3 years Nasal polyps Psoriasis Surgical History History of amputation of great toe Right History of amputation of left lower extremity History of cardiac defibrillator placement History of cataract removal with insertion of prosthetic lens (~03/02/18) Right History of cystoscopy (~12/25/13) History of gastric bypass (~07/01/14) History of orchiectomy, unilateral (~06/1999) Right History of tonsillectomy (~1979) 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 Family History Mother Diabetes Father Diabetes Heart disease Hypertension Sister Diabetes Brother Diabetes Brother Diabetes Heart disease Hypertension Social History Smoking/Tobacco Use Status: Former Tobacco Use Quit Date: 07/18/98 Tobacco: How many years used: 10 Smoking risk assessment performed?: Yes Alcohol Intake: current Alcohol Intake frequency: 0-2 drinks per day Alcohol type: hard liquor Substance use type: does not use Adopted: No Caregiver/Support person: No Foster care: No Household members: significant other Housing: house Do you need help understanding health information?: Rarely current occupation: Unemployed Sexually active: Yes Do you think of yourself as: straight/heterosexual Current gender identity: male Do you feel safe at home: Yes Do you feel safe in your relationship?: Yes
[2021-12-22 15:03] VITALS: BP 131/87; PULSE 88; RESP 18; TEMP 36.4; O2SAT 92
[2021-12-22 15:19] VITALS: PULSE 94
--- NOTE | 2021-12-22 15:19 | IN_ITS ---
Date of service: 12/22/21 Time of Service: 15:19 PT Notes Visit Reasons: Acute Exacerbation of HFREF Physical Therapy Inpatient Initial Evaluation Date: 12/22/2021 Referring Doctor: Maryann Skinner MD PT Orders: PT CONSULT: Safety consult for DC Precautions: Fall. Standard. Activity as tolerated. Patient Profile/Admitting Diagnosis: Maverick is a 51-year-old male with diagnosis of acute on chronic systolic congestive heart failure, COPD exacerbation, elevated troponin, diabetes mellitus, hypertension, and stage III chronic kidney disease. PMHX: All Active Problems?(Updated 12/18/21 @ 09:56 by Darek Reynolds) Elevated troponin I level (Acute) Acute on chronic systolic heart failure (Acute) Discharge planning issues (Acute) Dermatitis, unspecified (Acute ~11/2021) 12/07/21 Dermatology Coronary artery disease (Chronic) CHF exacerbation (Acute) COPD exacerbation (Acute) Elevated brain natriuretic peptide (BNP) level (Acute) thought to be near baseline, but unclear Hx Edema (Acute) Edema of abdomen (Acute) Fluid overload (Acute) 2' inactivity, diet, renal insufficiency, hyperglycemia Chronic systolic CHF (congestive heart failure) (Acute) 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 Elevated in 2020 2' Inf/ABx/HyperGly .. [ ] re-check 03/2021!Hypertension associated with diabetes (Acute) Diabetes mellitus with complication in adult patient (Chronic) Renal insufficiency (Chronic) Hyperglycemia due to diabetes mellitus (Acute) Chronic posttraumatic stress disorder (Acute) Neck pain (Acute) acute .. due to sleeping on sofa?? coughing?History of anemia (Chronic) History of posttraumatic stress disorder (PTSD) (Acute) Long Hx, Restarted with counselor, Madison Harris. 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 Working with [employer] re: prosthetics.. Hx of right BKA (Acute) Decreased range of motion (ROM) of right knee (Acute) Flexion ok; Extension is difficult .. Continues to work with PT Amputee, below knee (Chronic) Rt, November 2020. Lft, 2018 (?) GERD (gastroesophageal reflux disease) (Chronic) PPI COPD (chronic obstructive pulmonary disease) (Chronic) Hx smoker (~10pkyr), PFTs (04/17/21).Disability examination (Acute) PFTs, 04/2021 for Disability 2' COPD.Housing or economic problem (Acute) Carpal tunnel syndrome of left wrist (Acute) Cubital bursitis of right elbow (Acute) Type 2 diabetes mellitus with diabetic polyneuropathy (Acute) Persistent proteinuria associated with type 2 diabetes mellitus (Acute) Cervical neuropathy (Acute) Tendonitis of long head of biceps brachii of right shoulder (Acute) Bursitis of right shoulder (Acute) Right shoulder pain (Acute) Acute on chronic issue: now with elbow and hand pain (ulnar), with tingling. Nasal polyp (Acute) Pt report based on past ENT 06/02/[address] Haque - surgical correction planned Allergic rhinitis due to allergen (Acute) Nasal turbinate hypertrophy (Acute) Other chronic sinusitis (Acute) Deviated nasal septum (Acute) Seasonal allergies (Acute) Corneal opacification (Acute) OS Proliferative retinopathy of both eyes (Acute) Full PRP ODICD (implantable cardioverter-defibrillator) in place (Acute) ICD, single lead, [employer] Visia? 04/27/2018? [place], [place] Vitamin D deficiency (Acute) Erectile dysfunction (Acute) Testicular cancer (Acute) Secondary hyperparathyroidism (Acute) Medical History? Diabetic foot ulcer associated with type 2 diabetes mellitus RESOLVED with amputation. 09/30/20- R heel w/cellulitis-Dr Kevin,[place] 10/16/20 Debridement by Podiatry 10/30/20 [facility] -? RIGHT Heel Ulcer - cont close wound care by Podiatry Finger pain, left Could this be gout? No injury. Trial Naproxen. Hx: recurrent pneumonia walking pneumonia most vines x 3 yearsNasal polyps Psoriasis Surgical History? History of amputation of great toe Right History of amputation of left lower extremity History of cardiac defibrillator placement History of cataract removal with insertion of prosthetic lens (~03/02/18) RightHistory of cystoscopy (~12/25/13) History of gastric bypass (~07/01/14) History of orchiectomy, unilateral (~06/1999) Right History of tonsillectomy (~1979) 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 Social History/Home Situation: Lives with significant other in a private home with a ramp to enter. Has been a left transtibial amputee for the past 4 years, her right transtibial amputee for the past year. Does short distance ambulation using bilateral prosthesis and walker. Has a wheelchair that he uses frequently. Does the cooking in the house as significant other works. Equipment Owned/DME: Regular wheelchair, front wheeled walker, bilateral axillary crutches, bilateral below-knee prosthesis Subjective: Patient states that he has been able to manage bilateral transtibial prosthesis on his own without much difficulty. States that he is working with DME provider regarding replacement padding and socks for prosthesis. Objective: General Observation: Seated on wheelchair. Bilateral transfer tibial residual limbs wrapped with HALI wraps, hanging from chair. Mental Status: Alert and oriented as to person, place, time, and purpose. Able to pay attention, focus, and respond appropriately. Pain: Denies ROM: Right Lower Extremity: Hip flexion WFL. Hip extension to nuetral only. Hip abduction WFL. Knee flexion 30 degrees to 90 degrees. Extension -30 degrees. Left Lower Extremity: Hip flexion WFL. Hip extension to nuetral only. Hip abduction WFL. Knee flexion 20 degrees to 90 degrees. knee extension -20 degrees. Strength: Right Lower Extremity: Hip flexors 4/5. Hip abductors 4/5. Knee flexors 3-/5. Knee extensors 3-/5. Left Lower Extremity: Hip flexors 4/5. Hip abductors 4/5. Knee flexors 3-/5. Knee extensors 3-/5. Bed Mobility/Transfers: Sit to stand modified independent Stand to sit modified independent Wheelchair to bed modified independent Bed to wheelchair modified independent Gait: Was able to tolerate 4 steps to transfer from wheelchair to the bed and from the bed to the chair while holding onto bed rails and armrest of wheelchair for support. Modified independent. DONNING AND DOFFING OF B BKA PROSTHESIS: Patient demonstrates 100% correct technique and safely donning and doffing socks and prosthesis without any difficulty or increase in short of breath. has been working with [employer] regarding plyies/socks that he needs to properly cushion and maximize fit of B transtibial limbs. Balance: Static Sitting: Normal Dynamic Sitting: Normal Static Standing: Fair Dynamic Standing: Fair Special Tests: Mobility Limitations Standardized Measure [facility] AM-PAC 6 clicks Basic Mobility Inpatient Short Form: Raw Score: 21 CMS Score: 29% deficit Informed Consent/Education: Patient was instructed in purpose of PT consult. Assessment: Maverick demonstrates baseline mobility level with short distance and transfer task performance with modified independence. He has started to see his outpatient physical therapist in order to increase ambulation tolerance and safety indoors and outdoors. He will continue to benefit from same services in order to maximize balance skills and reduce fall risk. May also benefit from edema management to bilateral lower extremities and perineal area to allow for optimal mobility ADL performance. Patient is assessed as a 56859 moderate complexity based on the following: History: 51-year-old male with past medical history as indicated above Examination: Demonstrable impairment in strength, balance, and mobility level with underlying impairments and functional limitations as exhibited above as well as deficit score of 29% utilizing the [facility] Mobility Inpatient Short Form Presentation: Evolving Decision Makin moderate complexity Goals: N/A. PT evaluation 1 treatment session only for functional mobility training and management of prosthesis. Plan of Care/Treatment Plan: N/A. PT evaluation 1 treatment session only for functional mobility training and management of prosthesis. DISCHARGE RECOMMENDATIONS: Home when medically cleared by hospitalist. Patient will benefit from home health PT services in order to progress mobility level using least restrictive assistive ambulatory device, assess home safety, identify additional equipment needs, and establish a functional maintenance program that will increase ability of patient to remain at home. May continue with outpatient PT services once discharged from home health PT for balance retraining and edema management as needed. TREATMENT CODE/TIME: 25973 x 26 minutes beginning at 15:19 PM. Thank you for the opportunity to participate in the care of this patient. Jennifer Dietrich PT, DPT, CLT [facility] [place], [place]
--- NOTE | 2021-12-29 13:43 | W.PM.PROGNOT ---
Date of Service Date of service: 12/18/21 Time of Service: 15:45 Assessment and Plan Assessment and plan (1) Acute on chronic systolic heart failure: Status: Acute Assessment and plan: His primary presenting problem is acute on chronic CHF presenting w/ volume overload w/ bilateral proximal thigh and BKA stump edema and scrotal and penile and abdominal edema along w/ dyspnea. His elevated troponin level for which he presented this last admission and also non this admission is currently declining but concerning for recent ischemic event. He denies any chest pains and his dyspnea has improved. I will continue the lasix drip and adjust his CHF meds to get him to goal directed therapy (he has already been on lasix at home but this has been insufficient to keep him euvolemic). He has been on lisinopril which was put on hold this admission while I diurese him and monitor his CKD. His recent echo from 12/14 demonstrated severe global LV hypokinesis and pulmomnary hypertension. Once he is adequately diuresed and at a euvolemic weight he ought to have stress mPI either as inpatient or in short time frame from discharge. Note: this progress note was created after patient's discharge although the patient was seen, interviewed, examined and all relevant data was reviewed on the day that this progress note reflects my visit on the afternoon of 12/18. The lack of progress note was discovered post discharge. My recollection of my interaction w/ the patient, and my interpretation of the data represents decsion making performed in real time as of 12/18/21 (2) COPD (chronic obstructive pulmonary disease): Status: Chronic Assessment and plan: patient requested use of nebulizers which he feels helps his breathing. I will put him on prn xopenex (3) CKD stage 3 secondary to diabetes: Status: Chronic Assessment and plan: despite aggressive lasix drip his BUN and creatinine have remained stable. continue to monitor as he is diuresed. (4) Hypertension associated with diabetes: Status: Acute Assessment and plan: stable. continue carvedilol, diuretics, hold lisinopril for now but once he is euvolemic will trial low dose ARB/NI (Entresto) (5) Type 2 diabetes mellitus with diabetic polyneuropathy: Status: Acute Assessment and plan: glucose running in the 190's to high 200's will adjust sliding scale and CHO coverage along w/ lantus Subjective Subjective Interval history since last seen: Patient still w/ significant scrotal and proximal thigh edema. However, wt down to 4.7 kg and net I/O negative nearly 5 liters since admission. He is less dyspneic today. None at rest. Exam Narrative Exam Narrative: Maverick is sitting up watching TV, no respiratory discomfort, not requiring oxygen Lungs w/ bibasilar rales, no wheezing or rhonchi Heart: regular, no appreciable murmur or rub or gallop Abdomen: obese, soft, nontender, edematous Proximal thighs still edematous but improved, stumps have gone down in size Scrotum and penis still edematous but also improved from admission Objective Last Vital Signs Temp 36.4 C L 12/22/21 15:03 Pulse 94 H 12/22/21 15:19 Resp 18 12/22/21 15:03 BP 131/87 12/22/21 15:03 Pulse Ox 92 12/22/21 15:03
== END 2021-12-22 17:13 | disposition home health service (06) | DRG 291 ==
LOC: ER 16:38 → MS 17:03
PROVIDERS: Admitting Provider Internal Medicine; Emergency Provider Emergency Medicine; PCP Student in an Organized Health Care Education/Training Program; Visit Provider Internal Medicine
DX: I13.0 Hypertensive heart and chronic kidney disease with heart failure and stage 1 through stage 4 chronic kidney disease, or unspecified chronic kidney disease (principal); I50.23 Acute on chronic systolic (congestive) heart failure; N25.81 Secondary hyperparathyroidism of renal origin; I24.8 Other forms of acute ischemic heart disease; Z68.41 Body mass index [BMI] 40.0-44.9, adult; N18.30 Chronic kidney disease, stage 3 unspecified; E11.22 Type 2 diabetes mellitus with diabetic chronic kidney disease; I25.10 Atherosclerotic heart disease of native coronary artery without angina pectoris; F43.12 Post-traumatic stress disorder, chronic; M54.2 Cervicalgia; F43.29 Adjustment disorder with other symptoms; K21.9 Gastro-esophageal reflux disease without esophagitis; E11.42 Type 2 diabetes mellitus with diabetic polyneuropathy; G56.02 Carpal tunnel syndrome, left upper limb; M70.31 Other bursitis of elbow, right elbow; M75.51 Bursitis of right shoulder; M75.21 Bicipital tendinitis, right shoulder; J30.9 Allergic rhinitis, unspecified; J34.3 Hypertrophy of nasal turbinates; J32.8 Other chronic sinusitis; E55.9 Vitamin D deficiency, unspecified; Z95.810 Presence of automatic (implantable) cardiac defibrillator; Z79.4 Long term (current) use of insulin; Z89.512 Acquired absence of left leg below knee; Z95.1 Presence of aortocoronary bypass graft; Z89.511 Acquired absence of right leg below knee; Z98.84 Bariatric surgery status; Z87.891 Personal history of nicotine dependence; I25.5 Ischemic cardiomyopathy; E66.9 Obesity, unspecified; I25.2 Old myocardial infarction
CPT/HCPCS: 36415; 78452; 80048; 80053; 87635; 93005; 94640; 97162; J1650; U0003; 71046; 83735; 83880; 84484; 85025; 85049; 87070; 87205; 93010; 93017; 94664; 94760; 99223; 99231; 99232; 99239; J1940; J2785; J7614

== ENCOUNTER 2021-12-26 13:14 | Outpatient (REF) | payer MEDICAID, SELFPAY ==
[2021-12-27 13:42] LABS: COVID-19 RT-PCR UVMMC Result Negative (Negative)
== END 2021-12-26 13:15 | disposition home or self-care (01) ==
LOC: LBN 13:14
PROVIDERS: PCP Student in an Organized Health Care Education/Training Program; Visit Provider Specialist
DX: Z20.822 Contact with and (suspected) exposure to COVID-19 (principal)
CPT/HCPCS: 87635; U0003

== ENCOUNTER 2021-12-28 11:03 | Outpatient (REF) | payer MEDICAID, SELFPAY ==
[2021-12-28 11:46] LABS: Anion Gap 6.3 mmol/L (3-11); BUN 42 mg/dL (7-18); CO2 29.7 mmol/L (21.0-32.0); CREATININE 2.2 mg/dL (0.70-1.30); Calcium 8.5 mg/dL (8.5-10.1); Chloride 102 mmol/L (98-107); Estimated GFR 31.71 (mL/min/1.73m2); Glucose 241 mg/dL (74-106); Potassium 4.9 mmol/L (3.5-5.1); Sodium 138 mmol/L (136-145)
== END 2021-12-28 11:04 | disposition home or self-care (01) ==
LOC: NCHCN 11:03
PROVIDERS: PCP Student in an Organized Health Care Education/Training Program; Visit Provider Student in an Organized Health Care Education/Training Program
DX: I50.23 Acute on chronic systolic (congestive) heart failure (principal); N18.30 Chronic kidney disease, stage 3 unspecified
CPT/HCPCS: 80048; 83735

== ENCOUNTER 2022-01-07 03:21 | Outpatient (CLI) | payer MEDICAID, SELFPAY ==
[2022-01-07 09:54] LABS: HGB 13.1 g/dL (13.5-17.5)
[2022-01-07 10:47] LABS: ALT 17 U/L (16-63); AST 15 U/L (15-37); Albumin 2.1 g/dL (3.4-5.0); Alkaline Phosphatase 104 U/L (46-116); Anion Gap 7.2 mmol/L (3-11); BUN 43 mg/dL (7-18); Bilirubin, Total 0.3 mg/dL (0.2-1.0); CO2 27.8 mmol/L (21.0-32.0); CREATININE 2.1 mg/dL (0.70-1.30); Calcium 8.6 mg/dL (8.5-10.1); Chloride 106 mmol/L (98-107); Estimated GFR 33.46 (mL/min/1.73m2); Glucose 142 mg/dL (74-106); Sodium 141 mmol/L (136-145); Total Protein 6.2 g/dL (6.4-8.2)
== END 2022-01-07 03:22 | disposition home or self-care (01) ==
LOC: LBO 03:21
PROVIDERS: PCP Student in an Organized Health Care Education/Training Program; Visit Provider Student in an Organized Health Care Education/Training Program
DX: D64.9 Anemia, unspecified (principal); N17.9 Acute kidney failure, unspecified; E11.9 Type 2 diabetes mellitus without complications
CPT/HCPCS: 36415; 80053; 85018

== ENCOUNTER 2022-02-19 13:13 | Inpatient (IN) | payer MEDICAID, SELFPAY ==
[2022-02-19] VITALS (101 sets, daily range): BP systolic 101–145; BP diastolic 58–96; PULSE 74–103; RESP 0–26; TEMP 36.1–36.8; O2SAT 83–99
--- NOTE | 2022-02-19 13:00 | RT.EKG_ITS ---
APPROVED REPORT Exam: Resting ECG Reason for Exam: DYSPNEA Patient Location: E HR:91 bpm ECG Measurements Heart Rate 91 AXIS KY 200 P 67 QRSd 126 QRS 37 QT 312 T 189 QTc 384 Conclusion Sinus rhythm...normal P axis, V-rate 60- 99 Borderline prolonged KY interval...KY >197, V-rate 91-120 Nonspecific intraventricular conduction delay...QRSd >115mS, not LBBB/RBBB Consider inferior infarct...Q >35mS in II III aVF Nonspecific repol abnormality, diffuse leads...ST dep, T flat/neg, ant/lat/inf. Sinus. No STEMI. No significant change compared to previous EKG. I have reviewed and interpreted ECG and agree with software generated interpretation.
[2022-02-19 13:54] LABS: Abs Immature Grans 0.05 10^3/uL (0.0-0.06); Absolute Basophil Count 0.04 10^3/uL (0.0-0.2); Absolute Eosinophil Count 0.41 10^3/uL (0.0-0.7); Absolute Monocyte Count 1.37 10^3/uL (0.1-0.8); Basophils % 0.3; Eosinophils % 3.1; HCT 46.6 % (40.0-50.0); HGB 15.6 g/dL (13.5-17.5); Immature Grans % 0.4; Lymphocytes % 9.5; MCH 30.3 pg (27.0-33.0); MCHC 33.5 % (32.0-36.0); MCV 91 fL (80-95); MPV 12.5 fL (8.0-11.0); Monocytes % 10.3; Neutrophils % 76.4; Platelet Count 198 10^3/uL (130-400); RBC 5.15 10^6/uL (4.36-5.78); RDW 14.2 % (11.8-14.1); RDW-SD 47.8 fL; WBC 13.33 10^3/uL (4.4-10.8)
[2022-02-19 13:57] LABS: Absolute Lymphocyte Count 1.27 10^3/uL (1.2-3.4); Absolute Neutrophil Count 10.18 10^3/uL (1.2-6.7)
[2022-02-19 14:05] LABS: Bilirubin Negative (Negative); Blood Trace-lysed (Negative); Clarity Clear (Clear); Glucose 500 mg/dL (Negative); Ketones Negative (Negative); Leukocyte Esterase Negative (Negative); Nitrite Negative (Negative); Specific Gravity 1.025 (1.005-1.025); Urobilinogen 0.2 EU/dL (Up TO 0.2); pH 6.5 (5-8)
[2022-02-19 14:12] LABS: Bacteria Negative HPF (Negative); C & S Indicated? No; Casts Negative LPF (Negative); Crystals Negative HPF (Negative); Epithelial Cells Few HPF (Negative); Mucus Negative (Negative)
--- NOTE | 2022-02-19 14:15 | DI.CT_ITS ---
Exam(s) CT HEAD WO EXAM: CT HEAD WO CLINICAL HISTORY: fatigue, weakness, r/o acute disease. TECHNIQUE: Imaging Protocol: Axial computed tomography images with coronal and sagittal reformatted images were created and reviewed COMPARISON: No exams were available for comparison FINDINGS: Ventricles and Extra axial spaces: Normal in size and morphology for the patient's age. Hemorrhage: None. Cerebral parenchyma: No acute territorial infarct is present. There is a normal watson-white matter di fferentiation. Midline shift: None. Brainstem/Cerebellum: Normal. Calvarium: Normal. Visualized Paranasal sinuses/Mastoids: There is mucosal thickening in the maxillary sinuses bilateral ly. Postsurgical changes are seen in the visualized paranasal sinuses. There is mild mucosal thicke chiquita in the ethmoid air cells and sphenoid sinuses. The frontal sinuses are clear as are the mastoid air cells. Soft Tissues: The left orbit is dense and partially calcified. IMPRESSION: 1. No acute intracranial process. 2. Results of this exam have been verbally communicated with provider. RADIATION DOSE DELIVERED: 1,011.89mGy.cm Total DLP DATA REPOSITORY: All CT scans at this facility are submitted to the National Radiology Data Registry (NRDR) Dose Index Registry (DIR) with the [employer] ([employer]). RADIATION OPTIMIZATION: All CT scans at this facility use at least one of these dose optimization te chniques: automated exposure control; mA and/or kV adjustment per patient size (includes targeted exa ms where dose is matched to clinical indication); or iterative reconstruction.
--- NOTE | 2022-02-19 14:15 | DI.RAD_ITS ---
Exam(s) XR CHEST 2V PA LATERAL EXAM: XR CHEST 2V PA LATERAL CLINICAL HISTORY: sob, weakness, r/o acute disease TECHNIQUE: 2D digital imaging was performed of the chest. Two images were obtained. PA and lateral views were obtained. COMPARISON: CR XR CHEST 2V PA LATERAL from 12/17/2021 FINDINGS: MEDIASTINUM: Normal. HEART: Normal. Cardiac pacing wires stable. PULMONARY VASCULATURE: Normal. LUNGS: Clear. PLEURAL SPACE: No pleural effusion or pneumothorax. BONE:Within normal limits for the patient's age. OTHER FINDINGS:Normal. IMPRESSION: No acute pulmonary findings. DATA REPOSITORY: RADIATION DOSE DELIVERED:
[2022-02-19 14:19] LABS: ALT 19 U/L (16-63); AST 20 U/L (15-37); Albumin 2.9 g/dL (3.4-5.0); Alkaline Phosphatase 96 U/L (46-116); Anion Gap 3.6 mmol/L (3-11); Bilirubin, Total 0.8 mg/dL (0.2-1.0); CO2 33.4 mmol/L (21.0-32.0); Chloride 91 mmol/L (98-107); Estimated GFR 13.49 (mL/min/1.73m2); Glucose 274 mg/dL (74-106); NT-proBNP 13110 pg/mL (<300); Potassium 4.1 mmol/L (3.5-5.1); Sodium 128 mmol/L (136-145)
[2022-02-19 14:21] LABS: BUN 87 mg/dL (7-18); CREATININE 4.6 mg/dL (0.70-1.30); Calcium 18.7 mg/dL (8.5-10.1); Troponin I 910 ng/L (<or=60)
--- NOTE | 2022-02-19 14:31 | ED.GENADUL_ITS ---
Discharge Plan Disposition Patient Disposition: [facility] INPATIENT Condition: Stable Discharge Details Clinical Impression: Acute kidney injury superimposed on chronic kidney disease, Elevated troponin, Hypercalcemia, Fatigue Admit Date/Time: 02/19/22 18:08 Admit Provider: Darek Reynolds Attending Provider: Darek Reynolds Primary Care Provider: Candice Perez ED Provider: Mahogany Chen Discharge Data Discharge Date/Time-TO BE ENTERED AT DEPARTURE: 02/19/22 19:29 Medical Decision Making 52-year-old male with a history of obesity, diabetes, coronary artery disease, CHF, COPD, CKD, PTSD, bilateral BKA presents with fatigue for the past week off. Also admits to intermittent shortness of breath. EKG on arrival notes a rate of 91, sinus, no STEMI and no significant change from previous EKG. Vitals within normal limits. Patient appears significantly drowsy but is able to answer questions appropriately and follow commands. No obvious focal deficits. No meningeal signs. Lungs clear bilaterally. No lower extremity edema. Abdomen soft and nontender. Differential diagnosis includes deterioration, PE, ACS, CVA, UTI, COVID, meningitis. We will place an IV, small bolus IV fluids, screening labs, urinalysis, fluids, CT head and chest x-ray. Labs reviewed. White blood cell count 13. Creatinine 4.6, last checked 2.1. Calcium elevated 18.7. Troponin elevated to 910. BNP 13 110, which is decreased compared to previous results. Urinalysis notes blood but no obvious infection. CT head and chest x-ray negative. Case discussed with [facility] cardiology reviewed EKG and no significant change from EKG in December 2021 and no recommendation for treatment for NSTEMI. There are minimal ST depressions in V2 and V3 so can obtain a posterior EKG. Recommend to trend troponins and EKGs. Can also interrogate AICD. Posterior EKG obtained and notes ST depression in 1 and aVL no STEMI. Patient does told nursing staff that he received a stent at [facility] 1 month ago. This was discussed with [facility] cardiology and no additional recommendations. Discussed with [facility] pick up operator Dr. Urias and he notes that patient had a cardiac catheterization in December and received a stent to the LAD. An echo noted an EF of 18%. Case discussed with hospitalist who accepts patient for admission. Would like a VBG. Will admit to the ICU for continued monitoring. Discussed that with patient's fatigue, if there is no improvement with fluids, consider LP. Suspicion for PE is low, however unable to obtain CTA chest due to renal function. Medical Records Medical records reviewed: Yes I reviewed the patient's medical records. Imaging Data Radiologic Study: Radiologist's impression: CT HEAD WO CLINICAL HISTORY: ? fatigue, weakness, r/o acute disease. ? TECHNIQUE:? Imaging Protocol: Axial computed tomography images with coronal and sagittal reformatted images were created and reviewed COMPARISON:? No exams were available for comparison FINDINGS: Ventricles and Extra axial spaces: Normal in size and morphology for the patient's age. Hemorrhage: None. Cerebral parenchyma: No acute territorial infarct is present.? There is a normal watson-white matter differentiation.? Midline shift: None. Brainstem/Cerebellum: Normal. Calvarium: Normal. Visualized Paranasal sinuses/Mastoids: There is mucosal thickening in the maxillary sinuses bilaterally.? Postsurgical changes are seen in the visualized paranasal sinuses.? There is mild mucosal thickening in the ethmoid air cells and sphenoid sinuses.? The frontal sinuses are clear as are the mastoid air cells.? Soft Tissues: The left orbit is dense and partially calcified.? IMPRESSION: 1. No acute intracranial process. XR CHEST 2V PA ? LATERAL CLINICAL HISTORY:? sob, weakness, r/o acute disease TECHNIQUE:? 2D digital imaging was performed of the chest.? Two images were obtained.? PA and lateral views were obtained. COMPARISON:? CR XR CHEST 2V PA ? LATERAL from 12/17/2021 FINDINGS: MEDIASTINUM: Normal.? HEART: Normal. Cardiac pacing wires stable. PULMONARY VASCULATURE: Normal. LUNGS: Clear. ? PLEURAL SPACE: No pleural effusion or pneumothorax. BONE:Within normal limits for the patient's age.? OTHER FINDINGS:Normal.? IMPRESSION: No acute pulmonary findings. Lab Data Lab results reviewed: Yes I reviewed the patient's lab results. Labs: 02/19/22 16:42 Blood Blood Culture - Preliminary NO GROWTH 24 HOURS Laboratory Tests Range/Units 02/19/22 02/19/22 02/19/22 13:35 13:47 13:47 WBC (4.4-10.8) 10^3/uL 13.33 H RBC (4.36-5.78) 10^6/uL 5.15 Hgb (13.5-17.5) g/dL 15.6 Hct (40.0-50.0) % 46.6 MCV (80-95) fL 91 MCH (27.0-33.0) pg 30.3 MCHC (32.0-36.0) % 33.5 RDW (11.8-14.1) % 14.2 H Plt Count (130-400) 10^3/uL 198 MPV (8.0-11.0) fL 12.5 H Immature Gran % 0.4 Neutrophils % 76.4 Lymphocytes % 9.5 Monocytes % 10.3 Eosinophils % 3.1 Basophils % 0.3 Nucleated RBC % (0.0-0.3) % 0.0 Absolute Neutrophils (1.2-6.7) 10^3/uL 10.18 H Absolute Lymphocytes (1.2-3.4) 10^3/uL 1.27 Absolute Monocytes (0.1-0.8) 10^3/uL 1.37 H Absolute Eosinophils (0.0-0.7) 10^3/uL 0.41 Absolute Basophils (0.0-0.2) 10^3/uL 0.04 VBG pH (7.31-7.41) VBG pCO2 (41-51) mmHg VBG pO2 mmHg VBG HCO3 (23-28) mmol/L VBG Total CO2 (24-29) mmol/L VBG O2 Saturation % VBG Base Excess (-2-3) mmol/L VBG Lactate (0.9-1.7) mmol/L Sodium (136-145) mmol/L 128 L Potassium (3.5-5.1) mmol/L 4.1 Chloride (98-107) mmol/L 91 L Carbon Dioxide (21.0-32.0) mmol/L 33.4 H Anion Gap (3-11) mmol/L 3.6 BUN (7-18) mg/dL 87 H* Creatinine (0.70-1.30) mg/dL 4.6 H* Estimated GFR/1.73 m2 (mL/min/1.73m2) 13.49 Glucose (74-106) mg/dL 274 H Calcium (8.5-10.1) mg/dL 18.7 H* Magnesium (1.8-2.4) mg/dL 2.0 Total Bilirubin (0.2-1.0) mg/dL 0.8 AST (15-37) U/L 20 ALT (16-63) U/L 19 Alkaline Phosphatase (46-116) U/L 96 Troponin I (<or=60) ng/L 910 H* NT-Pro-B Natriuret Pep Cancelled 45884 H Total Protein (6.4-8.2) g/dL 7.0 Albumin (3.4-5.0) g/dL 2.9 L Urine Color (Yellow) Urine Clarity (Clear) Urine pH (5-8) Ur Specific [place] (1.005-1.025) Urine Protein (Negative) mg/dL Urine Ketones (Negative) mg/dL Urine Blood (Negative) Urine Nitrite (Negative) Urine Bilirubin (Negative) Urine Urobilinogen (Up TO 0.2) EU/dL Ur Leukocyte Esterase (Negative) Urine RBC (0-2) HPF Urine WBC (0-5) HPF Ur Epithelial Cells (Negative) HPF Urine Crystals (Negative) HPF Urine Bacteria (Negative) HPF Urine Casts (Negative) LPF Urine Mucus (Negative) Ur Culture Indicated? Urine Glucose (Negative) mg/dL COVID-19 Source SARS-CoV-2 (PCR) (Negative) Influenza Type A (PCR) (Negative) Influenza Type B (PCR) (Negative) RSV (PCR) (Negative) Range/Units 02/19/22 02/19/22 02/19/22 13:58 14:04 16:42 WBC (4.4-10.8) 10^3/uL RBC (4.36-5.78) 10^6/uL Hgb (13.5-17.5) g/dL Hct (40.0-50.0) % MCV (80-95) fL MCH (27.0-33.0) pg MCHC (32.0-36.0) % RDW (11.8-14.1) % Plt Count (130-400) 10^3/uL MPV (8.0-11.0) fL Immature Gran % Neutrophils % Lymphocytes % Monocytes % Eosinophils % Basophils % Nucleated RBC % (0.0-0.3) % Absolute Neutrophils (1.2-6.7) 10^3/uL Absolute Lymphocytes (1.2-3.4) 10^3/uL Absolute Monocytes (0.1-0.8) 10^3/uL Absolute Eosinophils (0.0-0.7) 10^3/uL Absolute Basophils (0.0-0.2) 10^3/uL VBG pH (7.31-7.41) VBG pCO2 (41-51) mmHg VBG pO2 mmHg VBG HCO3 (23-28) mmol/L VBG Total CO2 (24-29) mmol/L VBG O2 Saturation % VBG Base Excess (-2-3) mmol/L VBG Lactate (0.9-1.7) mmol/L 1.6 Sodium (136-145) mmol/L Potassium (3.5-5.1) mmol/L Chloride (98-107) mmol/L Carbon Dioxide (21.0-32.0) mmol/L Anion Gap (3-11) mmol/L BUN (7-18) mg/dL Creatinine (0.70-1.30) mg/dL Estimated GFR/1.73 m2 (mL/min/1.73m2) Glucose (74-106) mg/dL Calcium (8.5-10.1) mg/dL Magnesium (1.8-2.4) mg/dL Total Bilirubin (0.2-1.0) mg/dL AST (15-37) U/L ALT (16-63) U/L Alkaline Phosphatase (46-116) U/L Troponin I (<or=60) ng/L NT-Pro-B Natriuret Pep Total Protein (6.4-8.2) g/dL Albumin (3.4-5.0) g/dL Urine Color (Yellow) Yellow Urine Clarity (Clear) Clear Urine pH (5-8) 6.5 Ur Specific [place] (1.005-1.025) 1.025 Urine Protein (Negative) mg/dL >=300 H Urine Ketones (Negative) mg/dL Negative Urine Blood (Negative) Trace-lysed H Urine Nitrite (Negative) Negative Urine Bilirubin (Negative) Negative Urine Urobilinogen (Up TO 0.2) EU/dL 0.2 Ur Leukocyte Esterase (Negative) Negative Urine RBC (0-2) HPF 3-5 H Urine WBC (0-5) HPF 3-5 Ur Epithelial Cells (Negative) HPF Few Urine Crystals (Negative) HPF Negative Urine Bacteria (Negative) HPF Negative Urine Casts (Negative) LPF Negative Urine Mucus (Negative) Negative Ur Culture Indicated? No Urine Glucose (Negative) mg/dL 500 H COVID-19 Source Nasopharynx SARS-CoV-2 (PCR) (Negative) Negative Influenza Type A (PCR) (Negative) Negative Influenza Type B (PCR) (Negative) Negative RSV (PCR) (Negative) Negative Range/Units 02/19/22 16:42 WBC (4.4-10.8) 10^3/uL RBC (4.36-5.78) 10^6/uL Hgb (13.5-17.5) g/dL Hct (40.0-50.0) % MCV (80-95) fL MCH (27.0-33.0) pg MCHC (32.0-36.0) % RDW (11.8-14.1) % Plt Count (130-400) 10^3/uL MPV (8.0-11.0) fL Immature Gran % Neutrophils % Lymphocytes % Monocytes % Eosinophils % Basophils % Nucleated RBC % (0.0-0.3) % Absolute Neutrophils (1.2-6.7) 10^3/uL Absolute Lymphocytes (1.2-3.4) 10^3/uL Absolute Monocytes (0.1-0.8) 10^3/uL Absolute Eosinophils (0.0-0.7) 10^3/uL Absolute Basophils (0.0-0.2) 10^3/uL VBG pH (7.31-7.41) 7.42 H VBG pCO2 (41-51) mmHg 53 H VBG pO2 mmHg 46 VBG HCO3 (23-28) mmol/L 35 H VBG Total CO2 (24-29) mmol/L 31 H VBG O2 Saturation % 80 VBG Base Excess (-2-3) mmol/L 10 H VBG Lactate (0.9-1.7) mmol/L Sodium (136-145) mmol/L Potassium (3.5-5.1) mmol/L Chloride (98-107) mmol/L Carbon Dioxide (21.0-32.0) mmol/L Anion Gap (3-11) mmol/L BUN (7-18) mg/dL Creatinine (0.70-1.30) mg/dL Estimated GFR/1.73 m2 (mL/min/1.73m2) Glucose (74-106) mg/dL Calcium (8.5-10.1) mg/dL Magnesium (1.8-2.4) mg/dL Total Bilirubin (0.2-1.0) mg/dL AST (15-37) U/L ALT (16-63) U/L Alkaline Phosphatase (46-116) U/L Troponin I (<or=60) ng/L NT-Pro-B Natriuret Pep Total Protein (6.4-8.2) g/dL Albumin (3.4-5.0) g/dL Urine Color (Yellow) Urine Clarity (Clear) Urine pH (5-8) Ur Specific [place] (1.005-1.025) Urine Protein (Negative) mg/dL Urine Ketones (Negative) mg/dL Urine Blood (Negative) Urine Nitrite (Negative) Urine Bilirubin (Negative) Urine Urobilinogen (Up TO 0.2) EU/dL Ur Leukocyte Esterase (Negative) Urine RBC (0-2) HPF Urine WBC (0-5) HPF Ur Epithelial Cells (Negative) HPF Urine Crystals (Negative) HPF Urine Bacteria (Negative) HPF Urine Casts (Negative) LPF Urine Mucus (Negative) Ur Culture Indicated? Urine Glucose (Negative) mg/dL COVID-19 Source SARS-CoV-2 (PCR) (Negative) Influenza Type A (PCR) (Negative) Influenza Type B (PCR) (Negative) RSV (PCR) (Negative) ECG Data Attestation: I personally reviewed and interpreted this ECG (s) as follows: Interpretation: #1 -- rate of 91, sinus, no stemi, no significant change from previous ekg. #2 -- posterior EKG -- rate of 88, sinus, less than 1mm ST depressions in I, aVL and V3, 1mm ST depressions in V2, no stemi. HPI General Mode of arrival: EMS . Date/Time Provider Initiated Documentation: 02/19/22 13:27 . Limitations to Documentation: no limitations . Information obtained by: patient . HPI Narrative: Patient is a 52-year-old male with a history of diabetes, coronary artery disease, COPD, GERD, PTSD, CKD, CHF, ischemic cardiomyopathy and bilateral BKA presents with generalized weakness for the past week. Patient states he has had intermittent shortness of breath but denies any chest pain. He states he has chronic neck and back pain and states this is no worse than usual. Patient denies any headache, chest pain, abdominal pain, vomiting, diarrhea or urinary symptoms. Related Data Home Medications Medication Instructions Recorded Confirmed tramadol 100 mg tablet,extended 100 mg PO DAILY #10 tabs 07/16/20 02/11/22 release 24 hr Amputation Compression Sleeve #1 ea 01/26/21 02/11/22 aspirin 81 mg tablet,delayed 81 mg PO DAILY #90 tabs 03/05/21 02/11/22 release atorvastatin 10 mg tablet 10 mg PO DAILY #90 tabs 03/05/21 02/20/22 azelastine 137 mcg (0.1 %) nasal See Rx Instructions intranasal BID 03/05/21 02/11/22 spray aerosol #30 mL carvedilol 12.5 mg tablet 12.5 mg PO BID #180 tabs 03/05/21 02/20/22 cetirizine 10 mg tablet 10 mg PO DAILY #90 tabs 03/05/21 02/11/22 cholecalciferol (vitamin D3) 25 25 mcg PO DAILY #90 caps 03/05/21 02/11/22 mcg (1,000 unit) capsule cyanocobalamin (vitamin B-12) 1,000 mcg PO DAILY #90 caps 03/05/21 02/11/22 1,000 mcg capsule dupilumab 200 mg/1.14 mL 200 mg (1.14 mL) subcut Q2W #2.28 03/05/21 02/20/22 subcutaneous syringe (WiSpry) mL flash glucose scanning reader #1 ea 03/05/21 02/11/22 (Forest2MarketStyle Luis 2 Peapack) fluticasone 250 mcg-salmeterol 50 1 inh inhalation BID #60 ea 03/05/21 02/11/22 mcg/dose blistr powdr for inhalation (Advair Diskus) fluticasone propionate 50 1 spray intranasal DAILY #16 grams 03/05/21 02/11/22 mcg/actuation nasal spray,suspension (Allergy Relief (fluticasone)) magnesium oxide 500 mg tablet 500 mg PO DAILY #90 tabs 03/05/21 02/11/22 silver sulfadiazine 1 % topical 1 applic topical BID #400 grams 03/05/21 cream flash glucose sensor (FreeStyle #6 ea 04/17/21 02/11/22 Luis 2 Sensor kit) fore arm cuff crutches #1 ea 06/07/21 02/11/22 nicotine (polacrilex) 2 mg buccal 2 mg buccal Q6H PRN nicotine 06/16/21 02/11/22 lozenge (Nicorette) cravings #108 ea clobetasol 0.05 % topical spray 1 applic topical BID 1 week #59 mL 08/09/21 02/11/22 cyclobenzaprine 10 mg tablet 10 mg PO BID PRN muscle spasm #30 09/04/21 02/20/22 tabs diazepam 5 mg tablet (Valium) 5 mg PO QHS PRN sleep #7 tabs 09/04/21 02/11/22 insulin lispro 100 unit/mL 1 sliding scale dose subcut 10/27/21 02/20/22 subcutaneous pen (Humalog KwikPen USEASDIRECTD DM, E11.8 .. to jeep (U-100) Insulin) A1C < 7.5 #15 mL Left Outer Sleeve #1 ea 12/07/21 02/11/22 RIGHT Prosthesis Adjustments #1 ea 12/07/21 02/11/22 dapagliflozin 5 mg tablet (Farxiga) 5 mg PO DAILY T 2 DM not at goal, 12/07/21 02/20/22 stage 3 CKD #90 tabs wheel chair maintence 12/07/21 02/11/22 Wheelchair Seat #1 ea 12/13/21 02/11/22 halobetasol propionate 0.05 % 1 applic topical DAILY PRN 12/15/21 02/11/22 topical cream Wheelchair Maintenance #1 ea 12/22/21 02/11/22 insulin glargine 100 unit/mL (3 35 unit (0.35 mL) subcut QPM #0 mL 12/22/21 02/20/22 mL) subcutaneous pen (Lantus Solostar U-100 Insulin) levalbuterol tartrate 45 2 inh inhalation Q6H PRN PRN 12/22/21 02/11/22 mcg/actuation aerosol inhaler shortness of breath or wheezing #15 grams sacubitril 24 mg-valsartan 26 mg 1 tab PO BID #60 tabs 12/22/21 02/20/22 tablet (Entresto) spironolactone 50 mg tablet 50 mg PO DAILY #30 tabs 12/22/21 02/20/22 tiotropium bromide 2.5 2 puff inhalation DAILY #4 grams 12/22/21 02/20/22 mcg/actuation mist for inhalation (Spiriva Respimat) torsemide 20 mg tablet 40 mg PO DAILY #60 tabs 12/22/21 02/20/22 wheel chair seat ##1 12/24/21 02/11/22 acetaminophen 325 mg tablet 650 mg PO Q4H PRN 12/31/21 02/11/22 clopidogrel 75 mg tablet 75 mg PO DAILY 12/31/21 02/20/22 furosemide 40 mg tablet (Lasix) 40 mg PO DAILY 12/31/21 02/20/22 pantoprazole 20 mg tablet,delayed 20 mg PO DAILY 01/01/22 02/11/22 release prednisone 20 mg tablet 40 mg PO DAILY 01/01/22 02/11/22 pseudoephedrine HCl 120 mg 120 mg PO Q12H PRN nasal congestion 01/01/22 02/11/22 tablet,extended release (Nasal Decongestant (pseudoephedrine)) ascorbic acid (vitamin C) 1,000 mg 500 mg PO DAILY #90 tabs 02/04/22 02/20/22 tablet Previous Rx's Medication Instructions Recorded tramadol 100 mg tablet,extended 100 mg PO DAILY #10 tabs 07/16/20 release 24 hr Amputation Compression Sleeve #1 ea 01/26/21 aspirin 81 mg tablet,delayed 81 mg PO DAILY #90 tabs 03/05/21 release atorvastatin 10 mg tablet 10 mg PO DAILY #90 tabs 03/05/21 azelastine 137 mcg (0.1 %) nasal See Rx Instructions intranasal BID 03/05/21 spray aerosol #30 mL carvedilol 12.5 mg tablet 12.5 mg PO BID #180 tabs 03/05/21 cetirizine 10 mg tablet 10 mg PO DAILY #90 tabs 03/05/21 cholecalciferol (vitamin D3) 25 25 mcg PO DAILY #90 caps 03/05/21 mcg (1,000 unit) capsule cyanocobalamin (vitamin B-12) 1,000 mcg PO DAILY #90 caps 03/05/21 1,000 mcg capsule dupilumab 200 mg/1.14 mL 200 mg (1.14 mL) subcut Q2W #2.28 03/05/21 subcutaneous syringe (Luxe Hair ExoticsixSuperfocus) mL flash glucose scanning reader #1 ea 03/05/21 (FreeStyle Luis 2 [place]) fluticasone 250 mcg-salmeterol 50 1 inh inhalation BID #60 ea 03/05/21 mcg/dose blistr powdr for inhalation (Advair Diskus) fluticasone propionate 50 1 spray intranasal DAILY #16 grams 03/05/21 mcg/actuation nasal spray,suspension (Allergy Relief (fluticasone)) magnesium oxide 500 mg tablet 500 mg PO DAILY #90 tabs 03/05/21 silver sulfadiazine 1 % topical 1 applic topical BID #400 grams 03/05/21 cream flash glucose sensor (FreeStyle #6 ea 04/17/21 Luis 2 Sensor kit) fore arm cuff crutches #1 ea 06/07/21 nicotine (polacrilex) 2 mg buccal 2 mg buccal Q6H PRN nicotine 06/16/21 lozenge (Nicorette) cravings #108 ea clobetasol 0.05 % topical spray 1 applic topical BID 1 week #59 mL 08/09/21 cyclobenzaprine 10 mg tablet 10 mg PO BID PRN muscle spasm #30 09/04/21 tabs diazepam 5 mg tablet (Valium) 5 mg PO QHS PRN sleep #7 tabs 09/04/21 insulin lispro 100 unit/mL 1 sliding scale dose subcut 10/27/21 subcutaneous pen (Humalog KwikPen USEASDIRECTD DM, E11.8 .. to jeep (U-100) Insulin) A1C < 7.5 #15 mL Left Outer Sleeve #1 ea 12/07/21 RIGHT Prosthesis Adjustments #1 ea 12/07/21 dapagliflozin 5 mg tablet (Farxiga) 5 mg PO DAILY T 2 DM not at goal, 12/07/21 stage 3 CKD #90 tabs Wheelchair Seat #1 ea 12/13/21 Wheelchair Maintenance #1 ea 12/22/21 insulin glargine 100 unit/mL (3 35 unit (0.35 mL) subcut QPM #0 mL 12/22/21 mL) subcutaneous pen (Lantus Solostar U-100 Insulin) levalbuterol tartrate 45 2 inh inhalation Q6H PRN PRN 12/22/21 mcg/actuation aerosol inhaler shortness of breath or wheezing #15 grams sacubitril 24 mg-valsartan 26 mg 1 tab PO BID #60 tabs 12/22/21 tablet (Entresto) spironolactone 50 mg tablet 50 mg PO DAILY #30 tabs 12/22/21 tiotropium bromide 2.5 2 puff inhalation DAILY #4 grams 12/22/21 mcg/actuation mist for inhalation (Spiriva Respimat) torsemide 20 mg tablet 40 mg PO DAILY #60 tabs 12/22/21 wheel chair seat ##1 12/24/21 ascorbic acid (vitamin C) 1,000 mg 500 mg PO DAILY #90 tabs 02/04/22 tablet Allergies Allergy/AdvReac Type Severity Reaction Status Date / Time insulin aspart AdvReac Mild HypOglycemi Unverified 12/31/21 09:18 a General Stated Complaint: GenMedical RAMON: 3 Review of Systems All systems reviewed & are unremarkable except as noted in HPI and below Constitutional Constitutional: Denies chills, Denies excessive sweating, Reports fatigue, José Manuel es fever(s), Denies weakness and Denies weight loss Eyes Eyes: Reports system reviewed and no additional complaints, except as documented and Denies blurry vision ENT Ears, Nose, Mouth, and Throat: Denies vertigo, Denies dizziness, Denies otalgia, Denies nasal congestion, Denies sore throat and Denies throat swelling Cardiovascular Cardiovascular: Denies chest pain, Denies syncope, Denies rapid heart rate and Denies dyspnea Respiratory Respiratory: Denies chest congestion, Denies cough, Denies pain on inspiration and Denies dyspnea Gastrointestinal Gastrointestinal: Denies abdominal pain, Denies diarrhea and Denies vomiting Genitourinary Genitourinary: Denies hematuria, Denies dysuria and Denies flank pain Musculoskeletal Musculoskeletal: Denies back pain and Denies joint swelling Integumentary/Breasts Skin/Breast: Denies lesions and Denies rash Neurologic Neurologic: Denies behavioral changes, Denies confusion, Denies vertigo, Denies dizziness, Denies syncope, Denies localized weakness and Denies weakness Psychiatric Psychiatric: Denies behavioral changes, Denies confusion and Denies depression Endocrine Endocrine: Denies excessive sweating and Reports fatigue Hematologic/Lymphatic Hematologic/Lymphatic: Denies easy bruising and Denies lymphadenopathy Allergic/Immunologic Allergic/Immunologic: Denies throat swelling PFSH All Active Problems (Updated 02/19/22 @ 22:06 by Darek Reynolds MD) Dehydration (Acute) Acute kidney injury superimposed on chronic kidney disease (Acute) Elevated troponin (Acute) Hypercalcemia (Acute) Fatigue (Acute) Pulmonary hypertension (Acute) 12/29/21. [id number]. Noted during Cardiac cath, [facility]. NYHA Class IV Ischemic cardiomyopathy (Acute) w/ (+) stress test and PCI/Stenting, 12/29/21 Dermatitis, unspecified (Acute ~11/2021) 12/07/21 [facility] Coronary artery disease (Chronic) w/ dilated cardiomyopathy and (+) stress test ++> PCI/Stenting, 12/29/21 CHF exacerbation (Acute) NYHA Class IV (12/29/21) [facility] Elevated brain natriuretic peptide (BNP) level (Acute) thought to be near baseline, but unclear Hx Edema (Acute) Edema of abdomen (Acute) Chronic systolic CHF (congestive heart failure) (Acute) 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 Elevated in 2020 2' Inf/ABx/HyperGly .. [ ] re-check 03/2021! Hypertension associated with diabetes (Acute) Diabetes mellitus with complication in adult patient (Chronic) Renal insufficiency (Chronic) Hyperglycemia due to diabetes mellitus (Acute) Chronic posttraumatic stress disorder (Acute) Neck pain (Acute) acute .. due to sleeping on sofa?? coughing? History of anemia (Chronic) History of posttraumatic stress disorder (PTSD) (Acute) Long Hx, Restarted with counselor, Madison Harris. 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 Working with [employer] re: prosthetics.. Hx of right BKA (Acute) Decreased range of motion (ROM) of right knee (Acute) Flexion ok; Extension is difficult .. Continues to work with PT Amputee, below knee (Chronic) Rt, November 2020. Lft, 2018 (?) GERD (gastroesophageal reflux disease) (Chronic) PPI COPD (chronic obstructive pulmonary disease) (Chronic) Hx smoker (~10pkyr), PFTs (04/17/21). Disability examination (Acute) PFTs, 04/2021 for Disability 2' COPD. Housing or economic problem (Acute) Carpal tunnel syndrome of left wrist (Acute) Cubital bursitis of right elbow (Acute) Type 2 diabetes mellitus with diabetic polyneuropathy (Acute) Persistent proteinuria associated with type 2 diabetes mellitus (Acute) Cervical neuropathy (Acute) Tendonitis of long head of biceps brachii of right shoulder (Acute) Bursitis of right shoulder (Acute) Right shoulder pain (Acute) Acute on chronic issue: now with elbow and hand pain (ulnar), with tingling. Nasal polyp (Acute) Pt report based on past ENT 06/02/[address] Haque - surgical correction planned Allergic rhinitis due to allergen (Acute) Nasal turbinate hypertrophy (Acute) Other chronic sinusitis (Acute) Deviated nasal septum (Acute) Seasonal allergies (Acute) Corneal opacification (Acute) OS Proliferative retinopathy of both eyes (Acute) Full PRP OD ICD (implantable cardioverter-defibrillator) in place (Acute) ICD, single lead, [employer] Visia 04/27/2018 [place], [place] Vitamin D deficiency (Acute) Erectile dysfunction (Acute) Testicular cancer (Acute) Secondary hyperparathyroidism (Acute) Medical History Diabetic foot ulcer associated with type 2 diabetes mellitus RESOLVED with amputation. 09/30/20-R heel w/cellulitis-Dr Kevin,DPM 10/16/20 Debridement by Podiatry 10/30/20 [facility] [place] Vascular - RIGHT Heel Ulcer - cont close wound care by Podiatry Finger pain, left Could this be gout? No injury. Trial Naproxen. Hx: recurrent pneumonia walking pneumonia most vines x 3 years Nasal polyps Positive cardiac stress test 2021 .. Cath, with stent placement + 12/29/21. Psoriasis Surgical History History of amputation of great toe Right History of amputation of left lower extremity History of cardiac defibrillator placement History of cataract removal with insertion of prosthetic lens (~03/02/18) Right History of cystoscopy (~12/25/13) History of gastric bypass (~07/01/14) History of orchiectomy, unilateral (~06/1999) Right History of tonsillectomy (~1979) 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 S/P cardiac catheterization 12/29/21 [facility] (Dr. Jerry Ramírez). PCI (via R radial artery) of mid-LAD. Balloon angioplasty and lithotripsy. Family History Mother Diabetes Father Diabetes Heart disease Hypertension Sister Diabetes Brother Diabetes Brother Diabetes Heart disease Hypertension Social History Smoking/Tobacco Use Status: Former Tobacco Use Quit Date: 07/18/98 Tobacco: How many years used: 10 Smoking risk assessment performed?: Yes Alcohol Intake: current Alcohol Intake frequency: 0-2 drinks per day Alcohol t ype: hard liquor Substance use type: does not use Adopted: No Caregiver/Support person: No Foster care: No Household members: significant other Housing: house Do you need help understanding health information?: Rarely current occupation: Unemployed Sexually active: Yes Do you think of yourself as: straight/heterosexual Current gender identity: male Do you feel safe at home: Yes Do you feel safe in your relationship?: Yes Exam Const General: cooperative and lethargic Orientation: alert, awake and oriented x3 HENMT Head: normal to inspection Ears: hearing grossly normal bilaterally and external ears normal General nose exam: external nose normal Face and sinus: normal facial exam Mouth: oral mucosae normal Teeth and gingiva: dentition normal Throat: posterior oropharynx normal Eyes General: appearance normal, both eyes and all related structures Eyelids: eyelids normal Pupils: PERRL EOM: EOM intact bilaterally Other: Blind in left eye. Neck Neck: normal visual inspection Lymphatic: no lymphadenopathy noted Chest Chest: normal inspection of the chest Resp Effort & Inspection: normal respiratory effort and able to speak in complete sentences Auscultation: clear to auscultation bilaterally Cardio Rate: regular rate Rhythm: regular rhythm GI Inspection: normal to inspection Palpation: soft, not firm, no guarding, no hepatosplenomegaly, no masses and nontender Auscultation: normal bowel sounds Back/Spine/Pelvis Back: no CVA tenderness Skin General skin exam: no rashes or lesions noted Neuro General: other (Drowsy but arousable and able to answer questions appropriately.) Cognition: normal cognition Speech: speech normal Motor: muscle tone normal throughout Sensory Exam: no sensory deficits noted Extrem Other: Bilateral BKA. Skin normal to inspection. No edema. Psych Appearance: grossly normal Mental Status: mental status grossly normal Speech and Movement: speech and movement normal Affect: normal affect Thought Process: normal Course Vital Signs Vital signs: Vital Signs Temperature 97.0 F L 02/19/22 13:16 Pulse 93 H 02/19/22 13:16 Respiratory Rate 20 02/19/22 13:16 Blood Pressure 134/58 L 02/19/22 13:16 Pulse Oximetry 95 02/19/22 13:16 Temperature 97.0 F L 02/19/22 13:16 Temperature Source Temporal Artery Scan 02/19/22 13:16 Pulse 90 02/19/22 13:57 Pulse 90 02/19/22 14:00 Respiratory Rate 11 L 02/19/22 14:00 Respiratory Effort Incrsd Work of Breathing 02/19/22 13:28 Respiratory Depth Shallow 02/19/22 13:28 Respiratory Pattern Normal 02/19/22 13:28 Blood Pressure 113/73 02/19/22 13:57 Blood Pressure Mean 82 02/19/22 13:57 Blood Pressure Position Supine 02/19/22 13:16 Pulse Oximetry 96 02/19/22 14:00 Oxygen Delivery Method Room Air 02/19/22 13:16 Oxygen Flow Rate 0 02/19/22 13:16 Lab/Test Results Lab/Test Results: Laboratory Tests Range/Units 02/19/22 02/19/22 02/19/22 13:35 13:47 13:47 WBC (4.4-10.8) 10^3/uL 13.33 H RBC (4.36-5.78) 10^6/uL 5.15 Hgb (13.5-17.5) g/dL 15.6 Hct (40.0-50.0) % 46.6 MCV (80-95) fL 91 MCH (27.0-33.0) pg 30.3 MCHC (32.0-36.0) % 33.5 RDW (11.8-14.1) % 14.2 H Plt Count (130-400) 10^3/uL 198 MPV (8.0-11.0) fL 12.5 H Immature Gran % 0.4 Neutrophils % 76.4 Lymphocytes % 9.5 Monocytes % 10.3 Eosinophils % 3.1 Basophils % 0.3 Nucleated RBC % (0.0-0.3) % 0.0 Absolute Neutrophils (1.2-6.7) 10^3/uL 10.18 H Absolute Lymphocytes (1.2-3.4) 10^3/uL 1.27 Absolute Monocytes (0.1-0.8) 10^3/uL 1.37 H Absolute Eosinophils (0.0-0.7) 10^3/uL 0.41 Absolute Basophils (0.0-0.2) 10^3/uL 0.04 Sodium (136-145) mmol/L 128 L Potassium (3.5-5.1) mmol/L 4.1 Chloride (98-107) mmol/L 91 L Carbon Dioxide (21.0-32.0) mmol/L 33.4 H Anion Gap (3-11) mmol/L 3.6 BUN (7-18) mg/dL 87 H* Creatinine (0.70-1.30) mg/dL 4.6 H* Estimated GFR/1.73 m2 (mL/min/1.73m2) 13.49 Glucose (74-106) mg/dL 274 H Calcium (8.5-10.1) mg/dL 18.7 H* Magnesium (1.8-2.4) mg/dL 2.0 Total Bilirubin (0.2-1.0) mg/dL 0.8 AST (15-37) U/L 20 ALT (16-63) U/L 19 Alkaline Phosphatase (46-116) U/L 96 Troponin I (<or=60) ng/L 910 H* NT-Pro-B Natriuret Pep Cancelled 81516 H Total Protein (6.4-8.2) g/dL 7.0 Albumin (3.4-5.0) g/dL 2.9 L Urine Color (Yellow) Urine Clarity (Clear) Urine pH (5-8) Ur Specific [place] (1.005-1.025) Urine Protein (Negative) mg/dL Urine Ketones (Negative) mg/dL Urine Blood (Negative) Urine Nitrite (Negative) Urine Bilirubin (Negative) Urine Urobilinogen (Up TO 0.2) EU/dL Ur Leukocyte Esterase (Negative) Urine RBC (0-2) HPF Urine WBC (0-5) HPF Ur Epithelial Cells (Negative) HPF Urine Crystals (Negative) HPF Urine Bacteria (Negative) HPF Urine Casts (Negative) LPF Urine Mucus (Negative) Ur Culture Indicated? Urine Glucose (Negative) mg/dL Range/Units 02/19/22 13:58 WBC (4.4-10.8) 10^3/uL RBC (4.36-5.78) 10^6/uL Hgb (13.5-17.5) g/dL Hct (40.0-50.0) % MCV (80-95) fL MCH (27.0-33.0) pg MCHC (32.0-36.0) % RDW (11.8-14.1) % Plt Count (130-400) 10^3/uL MPV (8.0-11.0) fL Immature Gran % Neutrophils % Lymphocytes % Monocytes % Eosinophils % Basophils % Nucleated RBC % (0.0-0.3) % Absolute Neutrophils (1.2-6.7) 10^3/uL Absolute Lymphocytes (1.2-3.4) 10^3/uL Absolute Monocytes (0.1-0.8) 10^3/uL Absolute Eosinophils (0.0-0.7) 10^3/uL Absolute Basophils (0.0-0.2) 10^3/uL Sodium (136-145) mmol/L Potassium (3.5-5.1) mmol/L Chloride (98-107) mmol/L Carbon Dioxide (21.0-32.0) mmol/L Anion Gap (3-11) mmol/L BUN (7-18) mg/dL Creatinine (0.70-1.30) mg/dL Estimated GFR/1.73 m2 (mL/min/1.73m2) Glucose (74-106) mg/dL Calcium (8.5-10.1) mg/dL Magnesium (1.8-2.4) mg/dL Total Bilirubin (0.2-1.0) mg/dL AST (15-37) U/L ALT (16-63) U/L Alkaline Phosphatase (46-116) U/L Troponin I (<or=60) ng/L NT-Pro-B Natriuret Pep Total Protein (6.4-8.2) g/dL Albumin (3.4-5.0) g/dL Urine Color (Yellow) Yellow Urine Clarity (Clear) Clear Urine pH (5-8) 6.5 Ur Specific [place] (1.005-1.025) 1.025 Urine Protein (Negative) mg/dL >=300 H Urine Ketones (Negative) mg/dL Negative Urine Blood (Negative) Trace-lysed H Urine Nitrite (Negative) Negative Urine Bilirubin (Negative) Negative Urine Urobilinogen (Up TO 0.2) EU/dL 0.2 Ur Leukocyte Esterase (Negative) Negative Urine RBC (0-2) HPF 3-5 H Urine WBC (0-5) HPF 3-5 Ur Epithelial Cells (Negative) HPF Few Urine Crystals (Negative) HPF Negative Urine Bacteria (Negative) HPF Negative Urine Casts (Negative) LPF Negative Urine Mucus (Negative) Negative Ur Culture Indicated? No Urine Glucose (Negative) mg/dL 500 H
[2022-02-19 14:46] LABS: COVID-19 PCR Negative (Negative); Influenza A PCR Negative (Negative); Influenza B PCR Negative (Negative); RSV PCR Negative (Negative)
[2022-02-19 15:00] LABS: Source Nasopharynx
[2022-02-19] MEDS: Normal Saline 250 ML 500 ML IV (15:39)
--- NOTE | 2022-02-19 16:00 | RT.EKG_ITS ---
APPROVED REPORT Exam: Resting ECG Reason for Exam: elev troponin Patient Location: E HR:86 bpm ECG Measurements Heart Rate 86 AXIS RI 199 P 54 QRSd 124 QRS -10 QT 313 T 169 QTc 375 Conclusion Sinus rhythm...normal P axis, V-rate 60- 99 Left bundle branch block...QRSd>120, broad/notched R. Sinus. LBBB. No STEMI. I have reviewed and interpreted ECG and agree with software generated interpretation.
--- NOTE | 2022-02-19 16:50 | NUR.NOTE ---
medtr[employer] pacemaker interrogated Nursing Note:
[2022-02-19 16:59] LABS: Lactate 1.6 mmol/L (0.9-1.7)
[2022-02-19 17:02] LABS: BE (Venous) 10 mmol/L (-2-3); HCO3 (Venous) 35 mmol/L (23-28); O2 Sat (Venous) 80 %; TCO2 (Venous) 31 mmol/L (24-29); pCO2 (Venous) 53 mmHg (41-51); pH (Venous) 7.42 (7.31-7.41); pO2 (Venous) 46 mmHg
--- NOTE | 2022-02-19 20:58 | HPE_ITS ---
Date of service: 02/19/22 Time of Service: 20:58 Assessment and Plan Assessment and plan (1) Acute kidney injury superimposed on chronic kidney disease: Status: Acute Assessment and plan: Chronic renal insufficiency secondary to cardiomyopathy and diabetes mellitus. Acute renal insufficiency superimposed on his CKD due to dehydration. We will give gentle IV fluid hydration overnight monitoring his urine output and repeating his BMP. Need to carefully monitor his intake and output so as not to put him in acute congestive failure. Ideally he should have serial echocardiograms monitoring his IVC and obtaining LVOT VTI's to see if his VTI improves with fluid challenges. However because of his body habitus we could not get optimal echo windows. Therefore we will just monitor him by clinical exam watching for signs of fluid overload. For now we will withhold his Entresto as well as his diuretics and his Farxiga while he is being rehydrated. Critical care time spent interviewing and examining the patient, reviewing studies, discussing case with patient's nurse and consulting physicians was 60 minutes outside of POCUS exam (2) Dehydration: Status: Acute Assessment and plan: As above (3) Hypercalcemia: Status: Acute Assessment and plan: Hypercalcemia is probably factitiously elevated secondary to severe dehydration and hemoconcentration nevertheless we will repeat his BMP tonight after fluid challenge and obtain an ionized calcium. His calcium remains elevated we will treat him with calcitonin. (4) Elevated troponin: Status: Acute Assessment and plan: He may have had a recent ischemic event a couple days ago when he started with the nausea and vomiting. As he is diabetic he may not have typical anginal symptoms. We will trend his troponins. Obtain repeat echocardiogram on Tuesday. If he has worsening symptoms of acute dyspnea or chest pain we will make call to [facility] cardiology to discuss transfer. Otherwise if he is stable his troponins trend downward we will just manage him medically. He should remain on dual antiplatelet therapy given his recent coronary stent. (5) Ischemic cardiomyopathy: Status: Acute Assessment and plan: Continue beta blockers as his blood pressure and heart rate allows. Withhold diuretics and Entresto and dapagliflozin while he is in acute renal failure. (6) Coronary artery disease: Status: Chronic Assessment and plan: As above (7) CKD stage 3 secondary to diabetes: Status: Chronic (8) COPD (chronic obstructive pulmonary disease): Status: Chronic Assessment and plan: cont. Spiriva and LABA/ICS; not in any acute exacerbation at present therefore does not need corticosteroids nor short acting bronchodilator (9) Type 2 diabetes mellitus with diabetic polyneuropathy: Status: Acute Assessment and plan: holding his dapigliflozin and Lantus for now. Will cover w/ SSI Novolog History of Present Illness Narrative: This 51-year-old male with a history of CAD, ischemic cardiomyopathy, LVEF 25- 30% by echo, IDDM 2 requiring insulin, status post bilateral BKA, not oxygen dependent COPD was hospitalized from 01-04 for acute on chronic systolic heart failure with elevated troponins. He was aggressively diuresed with furosemide infusion and switch to oral torsemide and Aldactone and Entresto were added for goal-directed therapy. He had an abnormal MPI stress test on 12/21/2021 which was abnormal demonstrating abnormal myocardial perfusion with infarcted inferior wall with posterior wall showing both infarction and superimposed isch emia. Anterior wall also appeared ischemic. LV was dilated and LVEF was 18% by MPI. Case was reviewed with [facility] cardiology felt the patient was appropriate for outpatient cardiac catheterization as the patient was symptom free of any angina. He did not require emergent transfer for cardiac cath. Referral was made to [facility] cardiology for cardiac catheterization. Patient states he subsequently had a cardiac catheterization last month and had a single stent placement. He now presents emergency department with acute nausea and vomiting for the last 2 days unable to keep down any oral liquids. He is feeling very fatigued tired but denies any shortness of breath or chest pain. DCR H emerge ncy department did obtain records from [facility] but records were not sent up to the intensive care unit with the patient for my review. Per my review of the ER attending's notes she spoke with Dr. Urias, mechanical engineering coop from [facility] who noted that the patient had a single stent to his LAD. Echocardiogram at that time showed an LVEF of 18%. Evaluation in the emergency department included serial EKGs. Initial EKG showed some minimal ST depression in V2 and V3 of about 1 mm. Subsequent EKG showed resolution of the same. EKGs were reviewed with [facility] cardiology team who felt there was no significant changes from December 2021 they recommended trending his troponins and interrogation of his AICD but did not feel he needed transfer for an NSTEMI. His lab work revealed a white count of 13,000 as well as worsening of his chronic renal failure with a creatinine of 4.6, previous creatinine was 2.1. Calcium was elevated 18.7 and troponin was elevated at 910 ng/L. proBNP was elevated at 13,110. Urinalysis was unremarkable. Chest x-ray showed no acute pulmonary pathology and CT of his head was negative. Patient was given a bolus of 500 mL of IV fluid and is now admitted to the intensive care unit for close monitoring of his blood pressure and heart rate while we rehydrate him. It is unclear as what brought on the acute nausea and vomiting couple days ago where the may have been ACS given his elevated troponins. He had no fever no chills and no diarrhea to suggest a gastroenteritis or an acute bacterial viral illness. He has no shortness of breath no hypoxemia to suggest an acute pulmonary process. He has no meningismus and no encephalopathy to suggest any acute [employer] infection. Review of Systems All systems reviewed & are unremarkable except as noted in HPI and below PFSH All Active Problems (Updated 02/19/22 @ 22:06 by Darek Reynolds MD) Dehydration (Acute) Acute kidney injury superimposed on chronic kidney disease (Acute) Elevated troponin (Acute) Hypercalcemia (Acute) Fatigue (Acute) Pulmonary hypertension (Acute) 12/29/21. [id number]. Noted during Cardiac cath, [facility]. NYHA Class IV Ischemic cardiomyopathy (Acute) w/ (+) stress test and PCI/Stenting, 12/29/21 Dermatitis, unspecified (Acute ~11/2021) 12/07/21 [facility] Coronary artery disease (Chronic) w/ dilated cardiomyopathy and (+) stress test ++> PCI/Stenting, 12/29/21 CHF exacerbation (Acute) NYHA Class IV (12/29/21) [facility] Elevated brain natriuretic peptide (BNP) level (Acute) thought to be near baseline, but unclear Hx Edema (Acute) Edema of abdomen (Acute) Chronic systolic CHF (congestive heart failure) (Acute) 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 Elevated in 2020 2' Inf/ABx/HyperGly .. [ ] re-check 03/2021! Hypertension associated with diabetes (Acute) Diabetes mellitus with complication in adult patient (Chronic) Renal insufficiency (Chronic) Hyperglycemia due to diabetes mellitus (Acute) Chronic posttraumatic stress disorder (Acute) Neck pain (Acute) acute .. due to sleeping on sofa?? coughing? History of anemia (Chronic) History of posttraumatic stress disorder (PTSD) (Acute) Long Hx, Restarted with counselor, Madison Harris. 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 Working with [employer] re: prosthetics.. Hx of right BKA (Acute) Decreased range of motion (ROM) of right knee (Acute) Flexion ok; Extension is difficult .. Continues to work with PT Amputee, below knee (Chronic) Rt, November 2020. Lft, 2018 (?) GERD (gastroesophageal reflux disease) (Chronic) PPI COPD (chronic obstructive pulmonary disease) (Chronic) Hx smoker (~10pkyr), PFTs (04/17/21). Disability examination (Acute) PFTs, 04/2021 for Disability 2' COPD. Housing or economic problem (Acute) Carpal tunnel syndrome of left wrist (Acute) Cubital bursitis of right elbow (Acute) Type 2 diabetes mellitus with diabetic polyneuropathy (Acute) Persistent proteinuria associated with type 2 diabetes mellitus (Acute) Cervical neuropathy (Acute) Tendonitis of long head of biceps brachii of right shoulder (Acute) Bursitis of right shoulder (Acute) Right shoulder pain (Acute) Acute on chronic issue: now with elbow and hand pain (ulnar), with tingling. Nasal polyp (Acute) Pt report based on past ENT 06/02/[address] Haque - surgical correction planned Allergic rhinitis due to allergen (Acute) Nasal turbinate hypertrophy (Acute) Other chronic sinusitis (Acute) Deviated nasal septum (Acute) Seasonal allergies (Acute) Corneal opacification (Acute) OS Proliferative retinopathy of both eyes (Acute) Full PRP OD ICD (implantable cardioverter-defibrillator) in place (Acute) ICD, single lead, [employer] Visia 04/27/2018 [place], [place] Vitamin D deficiency (Acute) Erectile dysfunction (Acute) Testicular cancer (Acute) Secondary hyperparathyroidism (Acute) Medical History Diabetic foot ulcer associated with type 2 diabetes mellitus RESOLVED with amputation. 09/30/20-R heel w/cellulitis-Dr Kevin,[facility] 10/16/20 Debridement by Podiatry 10/30/20 [facility] - RIGHT Heel Ulcer - cont close wound care by Podiatry Finger pain, left Could this be gout? No injury. Trial Naproxen. Hx: recurrent pneumonia walking pneumonia most vines x 3 years Nasal polyps Positive cardiac stress test 2021 .. Cath, with stent placement + 12/29/21. Psoriasis Surgical History History of amputation of great toe Right History of amputation of left lower extremity History of cardiac defibrillator placement History of cataract removal with insertion of prosthetic lens (~03/02/18) Right History of cystoscopy (~12/25/13) History of gastric bypass (~07/01/14) History of orchiectomy, unilateral (~06/1999) Right History of tonsillectomy (~1979) 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 S/P cardiac catheterization 12/29/21 [facility] (Dr. Jerry Ramírez). PCI (via R radial artery) of mid-LAD. Balloon angioplasty and lithotripsy. Family History Mother Diabetes Father Diabetes Heart disease Hypertension Sister Diabetes Brother Diabetes Brother Diabetes Heart disease Hypertension Social History Smoking/Tobacco Use Status: Former Tobacco Use Quit Date: 07/18/98 Tobacco: How many years used: 10 Smoking risk assessment performed?: Yes Alcohol Intake: current Alcohol Intake frequency: 0-2 drinks per day Alcohol type: hard liquor Substance use type: does not use Adopted: No Caregiver/Support person: No Foster care: No Household members: significant other Housing: house Do you need help understanding health information?: Rarely current occupation: Unemployed Sexually active: Yes Do you think of yourself as: straight/heterosexual Current gender identity: male Do you feel safe at home: Yes Do you feel safe in your relationship?: Yes Meds Allergies and Home Medications Allergies Allergy/AdvReac Type Severity Reaction Status Date / Time insulin aspart AdvReac Mild HypOglycemi Unverified 12/31/21 09:18 a Home Medications Medication Instructions Recorded Confirmed Type tramadol 100 mg tablet,extended 100 mg PO DAILY #10 tabs 07/16/20 02/11/22 Rx release 24 hr Amputation Compression Sleeve #1 ea 01/26/21 02/11/22 Rx aspirin 81 mg tablet,delayed 81 mg PO DAILY #90 tabs 03/05/21 02/11/22 Rx release atorvastatin 10 mg tablet 10 mg PO DAILY #90 tabs 03/05/21 02/11/22 Rx azelastine 137 mcg (0.1 %) nasal See Rx Instructions intranasal BID 03/05/21 02/11/22 Rx spray aerosol #30 mL carvedilol 12.5 mg tablet 12.5 mg PO BID #180 tabs 03/05/21 02/11/22 Rx cetirizine 10 mg tablet 10 mg PO DAILY #90 tabs 03/05/21 02/11/22 Rx cholecalciferol (vitamin D3) 25 25 mcg PO DAILY #90 caps 03/05/21 02/11/22 Rx mcg (1,000 unit) capsule cyanocobalamin (vitamin B-12) 1,000 mcg PO DAILY #90 caps 03/05/21 02/11/22 Rx 1,000 mcg capsule dupilumab 200 mg/1.14 mL 200 mg (1.14 mL) subcut Q2W #2.28 03/05/21 02/11/22 Rx subcutaneous syringe (Dupixent) mL flash glucose scanning reader #1 ea 03/05/21 02/11/22 Rx ([facility] [address] [place]) fluticasone 250 mcg-salmeterol 50 1 inh inhalation BID #60 ea 03/05/21 02/11/22 Rx mcg/dose blistr powdr for inhalation (Advair Diskus) fluticasone propionate 50 1 spray intranasal DAILY #16 grams 03/05/21 02/11/22 Rx mcg/actuation nasal spray,suspension (Allergy Relief (fluticasone)) halobetasol propionate 0.05 % 1 applic topical DAILY PRN 03/05/21 02/11/22 Rx topical cream psoriasis #50 grams magnesium oxide 500 mg tablet 500 mg PO DAILY #90 tabs 03/05/21 02/11/22 Rx silver sulfadiazine 1 % topical 1 applic topical BID #400 grams 03/05/21 02/11/22 Rx cream insulin lispro 100 unit/mL 1 sliding scale dose subcut 03/09/21 02/11/22 Rx subcutaneous solution USEASDIRECTD #10 mL flash glucose sensor ([place] #6 ea 04/17/21 02/11/22 Rx Luis 2 Sensor kit) fore arm cuff crutches #1 ea 06/07/21 02/11/22 Rx nicotine (polacrilex) 2 mg buccal 2 mg buccal Q6H PRN nicotine 06/16/21 02/11/22 Rx lozenge (Nicorette) cravings #108 ea clobetasol 0.05 % topical spray 1 applic topical BID 1 week #59 mL 08/09/21 02/11/22 Rx ukppmabu-aaceqlele-[id number] 3.5 4 drp otic (ear) QID #10 mL 08/09/21 02/11/22 Rx mg/mL-10,000 unit/mL-1 % ear solution cyclobenzaprine 10 mg tablet 10 mg PO BID PRN muscle spasm #30 09/04/21 02/11/22 Rx tabs diazepam 5 mg tablet (Valium) 5 mg PO QHS PRN sleep #7 tabs 09/04/21 02/11/22 Rx insulin lispro 100 unit/mL 1 sliding scale dose subcut 10/27/21 02/11/22 Rx subcutaneous pen (Humalog KwikPen USEASDIRECTD DM, E11.8 .. to jeep (U-100) Insulin) A1C < 7.5 #15 mL Left Outer Sleeve #1 ea 12/07/21 02/11/22 Rx RIGHT Prosthesis Adjustments #1 ea 12/07/21 02/11/22 Rx dapagliflozin 5 mg tablet (Farxiga) 5 mg PO DAILY T 2 DM not at goal, 12/07/21 02/11/22 Rx stage 3 CKD #90 tabs wheel chair maintence 12/07/21 02/11/22 History Wheelchair Seat #1 ea 12/13/21 02/11/22 Rx halobetasol propionate 0.05 % 1 applic topical DAILY 12/15/21 02/11/22 History topical cream Wheelchair Maintenance #1 ea 12/22/21 02/11/22 Rx insulin glargine 100 unit/mL (3 35 unit (0.35 mL) subcut QPM #0 mL 12/22/21 02/11/22 Rx mL) subcutaneous pen (Lantus Solostar U-100 Insulin) levalbuterol tartrate 45 2 inh inhalation Q6H PRN PRN 12/22/21 02/11/22 Rx mcg/actuation aerosol inhaler shortness of breath or wheezing #15 grams sacubitril 24 mg-valsartan 26 mg 1 tab PO BID #60 tabs 12/22/21 02/11/22 Rx tablet (Entresto) spironolactone 50 mg tablet 50 mg PO DAILY #30 tabs 12/22/21 02/11/22 Rx tiotropium bromide 2.5 2 puff inhalation DAILY #4 grams 12/22/21 02/11/22 Rx mcg/actuation mist for inhalation (Spiriva Respimat) torsemide 20 mg tablet 40 mg PO DAILY #60 tabs 12/22/21 02/11/22 Rx wheel chair seat ##1 12/24/21 02/11/22 Rx acetaminophen 325 mg tablet 650 mg PO Q4H PRN 12/31/21 02/11/22 History clopidogrel 75 mg tablet 75 mg PO DAILY 12/31/21 02/11/22 History furosemide 40 mg tablet (Lasix) 40 mg PO DAILY 12/31/21 02/11/22 History pantoprazole 20 mg tablet,delayed 20 mg PO DAILY 01/01/22 02/11/22 History release prednisone 20 mg tablet 40 mg PO DAILY 01/01/22 02/11/22 History pseudoephedrine HCl 120 mg 120 mg PO Q12H PRN nasal congestion 01/01/22 02/11/22 History tablet,extended release (Nasal Decongestant (pseudoephedrine)) ascorbic acid (vitamin C) 1,000 mg 500 mg PO DAILY #90 tabs 02/04/22 02/11/22 Rx tablet Exam Narrative Exam Narrative: Alert and oriented x4 HEENT: Atraumatic normocephalic, dry mucous membranes no exudate Neck: Supple, nontender, without thyromegaly or lymphadenopathy or JVD. Normal carotid pulses Lungs: Clear to auscultation and percussion Heart: Regular rate and rhythm without murmur rub or gallop. Normal apical impulse Abdomen: Nondistended, normal bowel sounds, nontender to palpation or percussion, no organomegaly, no bruits, no palpable masses Extremities: Normal status post bilateral BKA with no edema of his proximal thighs Neurologic: Cranial nerves II through XII grossly within normal limits. Normal strength and sensation over the face trunk and extremities. Results Labs Result diagrams: 02/19/22 13:47 02/19/22 13:47 Labs: Laboratory Results - last 24 hr 02/19/22 02/19/22 02/19/22 13:35 13:47 13:47 WBC 13.33 H RBC 5.15 Hgb 15.6 Hct 46.6 MCV 91 MCH 30.3 MCHC 33.5 RDW 14.2 H Plt Count 198 MPV 12.5 H Immature Gran % 0.4 Neutrophils % 76.4 Lymphocytes % 9.5 Monocytes % 10.3 Eosinophils % 3.1 Basophils % 0.3 Nucleated RBC % 0.0 Absolute Neutrophils 10.18 H Absolute Lymphocytes 1.27 Absolute Monocytes 1.37 H Absolute Eosinophils 0.41 Absolute Basophils 0.04 VBG pH VBG pCO2 VBG pO2 VBG HCO3 VBG Total CO2 VBG O2 Saturation VBG Base Excess VBG Lactate Sodium 128 L Potassium 4.1 Chloride 91 L Carbon Dioxide 33.4 H Anion Gap 3.6 BUN 87 H* Creatinine 4.6 H* Estimated GFR/1.73 m2 13.49 Glucose 274 H Calcium 18.7 H* Magnesium 2.0 Total Bilirubin 0.8 AST 20 ALT 19 Alkaline Phosphatase 96 Troponin I 910 H* NT-Pro-B Natriuret Pep Cancelled 26337 H Total Protein 7.0 Albumin 2.9 L Urine Color Urine Clarity Urine pH Ur Specific [place] Urine Protein Urine Ketones Urine Blood Urine Nitrite Urine Bilirubin Urine Urobilinogen Ur Leukocyte Esterase Urine RBC Urine WBC Ur Epithelial Cells Urine Crystals Urine Bacteria Urine Casts Urine Mucus Ur Culture Indicated? Urine Glucose COVID-19 Source SARS-CoV-2 (PCR) Influenza Type A (PCR) Influenza Type B (PCR) RSV (PCR) 02/19/22 02/19/22 02/19/22 13:58 14:04 16:42 WBC RBC Hgb Hct MCV MCH MCHC RDW Plt Count MPV Immature Gran % Neutrophils % Lymphocytes % Monocytes % Eosinophils % Basophils % Nucleated RBC % Absolute Neutrophils Absolute Lymphocytes Absolute Monocytes Absolute Eosinophils Absolute Basophils VBG pH VBG pCO2 VBG pO2 VBG HCO3 VBG Total CO2 VBG O2 Saturation VBG Base Excess VBG Lactate 1.6 Sodium Potassium Chloride Carbon Dioxide Anion Gap BUN Creatinine Estimated GFR/1.73 m2 Glucose Calcium Magnesium Total Bilirubin AST ALT Alkaline Phosphatase Troponin I NT-Pro-B Natriuret Pep Total Protein Albumin Urine Color Yellow Urine Clarity Clear Urine pH 6.5 Ur Specific [place] 1.025 Urine Protein >=300 H Urine Ketones Negative Urine Blood Trace-lysed H Urine Nitrite Negative Urine Bilirubin Negative Urine Urobilinogen 0.2 Ur Leukocyte Esterase Negative Urine RBC 3-5 H Urine WBC 3-5 Ur Epithelial Cells Few Urine Crystals Negative Urine Bacteria Negative Urine Casts Negative Urine Mucus Negative Ur Culture Indicated? No Urine Glucose 500 H COVID-19 Source Nasopharynx SARS-CoV-2 (PCR) Negative Influenza Type A (PCR) Negative Influenza Type B (PCR) Negative RSV (PCR) Negative 02/19/22 16:42 WBC RBC Hgb Hct MCV MCH MCHC RDW Plt Count MPV Immature Gran % Neutrophils % Lymphocytes % Monocytes % Eosinophils % Basophils % Nucleated RBC % Absolute Neutrophils Absolute Lymphocytes Absolute Monocytes Absolute Eosinophils Absolute Basophils VBG pH 7.42 H VBG pCO2 53 H VBG pO2 46 VBG HCO3 35 H VBG Total CO2 31 H VBG O2 Saturation 80 VBG Base Excess 10 H VBG Lactate Sodium Potassium Chloride Carbon Dioxide Anion Gap BUN Creatinine Estimated GFR/1.73 m2 Glucose Calcium Magnesium Total Bilirubin AST ALT Alkaline Phosphatase Troponin I NT-Pro-B Natriuret Pep Total Protein Albumin Urine Color Urine Clarity Urine pH Ur Specific [place] Urine Protein Urine Ketones Urine Blood Urine Nitrite Urine Bilirubin Urine Urobilinogen Ur Leukocyte Esterase Urine RBC Urine WBC Ur Epithelial Cells Urine Crystals Urine Bacteria Urine Casts Urine Mucus Ur Culture Indicated? Urine Glucose COVID-19 Source SARS-CoV-2 (PCR) Influenza Type A (PCR) Influenza Type B (PCR) RSV (PCR) Last Vital Signs Temp 36.1 C L 02/19/22 19:57 Pulse 90 02/19/22 20:01 Resp 16 02/19/22 20:50 BP 134/86 02/19/22 20:01 Pulse Ox 93 02/19/22 20:50 Point of Care Ultrasound Note: Limited focused echocardiogram was performed at the bedside. Quality of images was poor to fair secondary to body habitus. LV function appears to be severely impaired with a dilated left ventricle. RV does not appear to be enlarged and in fact appears to be underfilled. Pacer/AICD wire is present in right ventricle. IVC was not well visualized. Parasternal long and short axis and apical four-chamber and subcostal views were obtained. I did not see any pericardial effusion. I could not get adequate 5 chamber view to obtain an LVOT VTI.
[2022-02-19] MEDS: Normal Saline 500 ML 250 ML IV (21:48)
[2022-02-19] MEDS: Heparin 5,000 UNITS/ML VIAL 5000 UNITS SC (21:56)
[2022-02-19] MEDS: Calcitonin-Salmon 400 UNITS/2 ML VIAL IM (22:23)
[2022-02-19] MEDS: Cyclobenzaprine 10 MG TAB PO (22:28)
[2022-02-19] MEDS: diazePAM 5 MG TAB PO (22:28)
[2022-02-19 22:59] LABS: Anion Gap 4.1 mmol/L (3-11); CO2 32.9 mmol/L (21.0-32.0); Chloride 92 mmol/L (98-107); Estimated GFR 14.58 (mL/min/1.73m2); Glucose 229 mg/dL (74-106); Potassium 4.4 mmol/L (3.5-5.1); Sodium 129 mmol/L (136-145)
[2022-02-19 23:09] LABS: BUN 88 mg/dL (7-18); CREATININE 4.3 mg/dL (0.70-1.30); Calcium 17.8 mg/dL (8.5-10.1)
[2022-02-19 23:10] LABS: Troponin I 847 ng/L (<or=60)
[2022-02-20] VITALS (50 sets, daily range): BP systolic 72–139; BP diastolic 48–108; PULSE 87–105; RESP 0–24; TEMP 36.3–36.6; O2SAT 78–97
[2022-02-20] MEDS: Normal Saline 500 ML 75 ML IV (05:12)
[2022-02-20] MEDS: Heparin 5,000 UNITS/ML VIAL 5000 UNITS SC ×3 (05:53→21:24)
[2022-02-20 08:26] LABS: ALT 17 U/L (16-63); AST 18 U/L (15-37); Albumin 2.9 g/dL (3.4-5.0); Alkaline Phosphatase 101 U/L (46-116); Anion Gap 7.2 mmol/L (3-11); Bilirubin, Total 0.7 mg/dL (0.2-1.0); CO2 31.8 mmol/L (21.0-32.0); Chloride 94 mmol/L (98-107); Glucose 250 mg/dL (74-106); Potassium 4.1 mmol/L (3.5-5.1); Sodium 133 mmol/L (136-145); Total Protein 7.1 g/dL (6.4-8.2)
--- NOTE | 2022-02-20 08:26 | PDOC.CMIN ---
- If Service Date Differs Date of service: 02/20/22 Time of Service: 08:26 Care Management Initial Assess REASON FOR HOSPITALIZATION:: CHANEL, Elevated Troponin, Hypercalcemia PAST MEDICAL HISTORY/PAST SURGICAL HISTORY:: All Active Problems (Updated 02/19/22 @ 22:06 by Darek Reynolds MD). Dehydration (Acute). Acute kidney injury superimposed on chronic kidney disease (Acute). Elevated troponin (Acute). Hypercalcemia (Acute). Fatigue (Acute). Pulmonary hypertension (Acute). 12/29/21. [id number]. Noted during Cardiac cath, [facility]. NYHA Class IV. Ischemic cardiomyopathy (Acute). w/ (+) stress test and PCI/Stenting, 12/29/21. Dermatitis, unspecified (Acute ~11/2021). 12/07/21 Dermatology. Coronary artery disease (Chronic). w/ dilated cardiomyopathy and (+) stress test ++> PCI/Stenting, 12/29/21. CHF exacerbation (Acute). NYHA Class IV (12/29/21) [facility]. Elevated brain natriuretic peptide (BNP) level (Acute). thought to be near baseline, but unclear Hx. Edema (Acute). Edema of abdomen (Acute). Chronic systolic CHF (congestive heart failure) (Acute). 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 08/2019 Cr 1.74 ... Elevated in 2020 2' Inf/ABx/HyperGly .. [ ] re-check 03/2021! Hypertension associated with diabetes (Acute). Diabetes mellitus with complication in adult patient (Chronic). Renal insufficiency (Chronic). Hyperglycemia due to diabetes mellitus (Acute). Chronic posttraumatic stress disorder (Acute). Neck pain (Acute). acute .. due to sleeping on sofa?? coughing? History of anemia (Chronic). History of posttraumatic stress disorder (PTSD) (Acute). Long Hx, Restarted with counselor, Madison Harris. Adjustment reaction to chronic stress (Acute). Social isolation (Acute). Amputee, lower limb (Acute). Double Amputee, 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 Working with [employer] re: prosthetics.. Hx of right BKA (Acute). Decreased range of motion (ROM) of right knee (Acute). Flexion ok; Extension is difficult .. Continues to work with PT. Amputee, below knee (Chronic). Rt, November 2020. Lft, 2018 (?). GERD (gastroesophageal reflux disease) (Chronic). PPI. COPD (chronic obstructive pulmonary disease) (Chronic). Hx smoker (~10pkyr), PFTs (04/17/21). Disability examination (Acute). PFTs, 04/2021 for Disability 2' COPD. Housing or economic problem (Acute). Carpal tunnel syndrome of left wrist (Acute). Cubital bursitis of right elbow (Acute). Type 2 diabetes mellitus with diabetic polyneuropathy (Acute). Persistent proteinuria associated with type 2 diabetes mellitus (Acute). Cervical neuropathy (Acute). Tendonitis of long head of biceps brachii of right shoulder (Acute). Bursitis of right shoulder (Acute). Right shoulder pain (Acute). Acute on chronic issue: now with elbow and hand pain (ulnar), with tingling. Nasal polyp (Acute). Pt report based on past ENT. 06/02/[address] Haque - surgical correction planned. Allergic rhinitis due to allergen (Acute). Nasal turbinate hypertrophy (Acute). Other chronic sinusitis (Acute). Deviated nasal septum (Acute). Seasonal allergies (Acute). Corneal opacification (Acute). OS. Proliferative retinopathy of both eyes (Acute). Full PRP OD. ICD (implantable cardioverter-defibrillator) in place (Acute). ICD, single lead, [employer] Visia 04/27/2018 [place], [place]. Vitamin D deficiency (Acute). Erectile dysfunction (Acute). Testicular cancer (Acute). Secondary hyperparathyroidism (Acute). Medical History . Diabetic foot ulcer associated with type 2 diabetes mellitus. RESOLVED with amputation. 09/30/20-R heel w/cellulitis-Dr Herberth DPM. 10/16/20 Debridement by Podiatry. 10/30/20 [facility] Vascular - RIGHT Heel Ulcer - cont close wound care by Podiatry. Finger pain, left. Could this be gout? No injury. Trial Naproxen. Hx: recurrent pneumonia. walking pneumonia most vines x 3 years. Nasal polyps. Positive cardiac stress test. 2021 .. Cath, with stent placement + 12/29/21. Psoriasis. Surgical History . History of amputation of great toe. Right. History of amputation of left lower extremity. History of cardiac defibrillator placement. History of cataract removal with insertion of prosthetic lens (~03/02/18). Right. History of cystoscopy (~12/25/13). History of gastric bypass (~07/01/14). History of orchiectomy, unilateral (~06/1999). Right. History of tonsillectomy (~1979). Hx of right BKA. 11/28/20. S/P cardiac catheterization. 12/29/21 [facility] (Dr. Jerry Ramírez). PCI (via R radial artery) of mid-LAD. Balloon angioplasty and lithotripsy. PREVIOUS FUNCTIONAL STATUS/SOCIAL/FAMILY SUPPORTS:: Maverick lives in [place], [place] with his partner. He uses a wheelchair, and has prosthetics for his bilateral LE amputations. Maverick does not drive at this time. He uses [employer] for transportation. CURRENT FUNCTIONAL STATUS:: Maverick was lying in bed when CM met with him. He is drowsy and difficult to engage in conversation. At this time Maverick denies any barriers or difficulty accessing healthcare, medications, housing, transportation or food. Per patient, he does not have [facility] services and has not needed services. ADVANCE DIRECTIVES:: None on file, CM will offer forms. Has patient been provided with info about the portal/API?: Yes Did the patient sign up for the portal?: Yes (Prior to admission) CODE STATUS:: Full Code INSURANCE COVERAGE / FINANCIAL ISSUES:: Medicaid, finacial assistance 100 CURRENT HOME/COMMUNITY SERVICES/EQUIPMENT:: [employer] van. Wheel Chair, has prosthetic LE. [facility] Stone Decorator:Jodi. Stephens: Sobeida Neville. 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 Higher Ability: Jody Rodriguez PRIMARY CARE PHYSICIAN:: Candice Deleon POTENTIAL DISCHARGE NEEDS:: Transportation, Work Note, New services PATIENT/FAMILY EDUCATION NEEDS:: Review discharge instructions, limitations, medications and plan to follow up with community providers. ask me three. TRANSPORTATION:: Via [employer] van PLAN:: Anticipate, Maverick will discharge home via [employer] van when medically ready per provider. He will likely benefit from New [facility] services RN/PT/OT/WELDER TECH. His RN Caremanager through [facility] is Tammie and should be notified of discharge. He will follow up with his community provider and discharge plan of care as prescribed.
[2022-02-20 08:29] LABS: Calcium 16.5 mg/dL (8.5-10.1)
[2022-02-20 08:30] LABS: BUN 84 mg/dL (7-18); CREATININE 4.1 mg/dL (0.70-1.30); Troponin I 910 ng/L (<or=60)
[2022-02-20] MEDS: Budesonide/Formoterol 160/4.5 6 GM 60 PUFF INH IH ×2 (08:30→21:54)
[2022-02-20] MEDS: Tiotropium Bromide-Respimat 10 PUFF INH 2 PUFF IH (08:30)
[2022-02-20] MEDS: Carvedilol 12.5 MG TAB PO ×2 (08:41→21:25)
[2022-02-20] MEDS: Cyanocobalamin 500 MCG TAB 1000 MCG PO (08:41)
[2022-02-20] MEDS: Pantoprazole 20 MG TABCR PO (08:41)
[2022-02-20] MEDS: Clopidogrel 75 MG TAB PO (08:41)
[2022-02-20] MEDS: Aspirin E.C. 81 MG TABEC PO (08:41)
[2022-02-20] MEDS: Insulin Aspart 300 UNITS/3 ML PEN SC ×3 (08:45→12:12)
[2022-02-20] MEDS: Fluticasone NASAL SPRAY 16 GM BTL NS (08:49)
[2022-02-20] MEDS: Calcitonin-Salmon 400 UNITS/2 ML VIAL IM ×2 (08:49→18:16)
--- NOTE | 2022-02-20 13:40 | PGE_ITS ---
Date of Service Date of service: 02/20/22 Time of Service: 13:40 Assessment and Plan Assessment and plan (1) Acute kidney injury superimposed on chronic kidney disease: Status: Acute Assessment and plan: Patient remains dehydrated and volume under resuscitated however he is not oliguric. We will continue IV fluid hydration monitoring his urine output and electrolytes and BUN and creatinine. I discussed his case with nephrology from [facility] Dr Garcia (Dr. Flyod) specifically asking her assistance in addressing his hypercalcemia. She indicated it would be okay to give him a lower dose of pamidronate 30 mg IV over 4-hour. She recommends continued treatment with calcitonin. I did ask her about use of denosumab. She is not used this in acute hypercalcemia but it is indicated in the literature particularly of patients are either unresponsive to bisphosphonates or cannot tolerate bisphosphonates. I talked to our pharmacist and we do have denosumab as well as pamidronate. Critical care time spent interviewing and examining the patient, reviewing studies, discussing case with patient's nurse and consulting physicians was 30 minutes. (2) Dehydration: Status: Acute Assessment and plan: As above (3) Hypercalcemia: Status: Acute Assessment and plan: Treatment w/ pamidronate and calcitonin; monitor serial BMP (4) Elevated troponin: Status: Acute Assessment and plan: He may have had a recent ischemic event a couple days ago when he started with the nausea and vomiting. As he is diabetic he may not have typical anginal symptoms. We will trend his troponins. Obtain repeat echocardiogram on Tuesday. If he has worsening symptoms of acute dyspnea or chest pain we will make call to [facility] cardiology to discuss transfer. Otherwise if he is stable his troponins trend downward we will just manage him medically. He should remain on dual antiplatelet therapy given his recent coronary stent. (5) Ischemic cardiomyopathy: Status: Acute Assessment and plan: Continue beta blockers as his blood pressure and heart rate allows. Withhold diuretics and Entresto and dapagliflozin while he is in acute renal failure. (6) Coronary artery disease: Status: Chronic Assessment and plan: As above (7) CKD stage 3 secondary to diabetes: Status: Chronic (8) COPD (chronic obstructive pulmonary disease): Status: Chronic Assessment and plan: cont. Spiriva and LABA/ICS; not in any acute exacerbation at present therefore does not need corticosteroids nor short acting bronchodilator (9) Type 2 diabetes mellitus with diabetic polyneuropathy: Status: Acute Assessment and plan: sliding scale insulin w/ Novolog for now. will withold his Lantus for now as he is not eating adequately. However he may need his sliding scale increased as I just put him on hydrocortisone for acute adrenal insufficiency dosing. I am not sure whether or not he will need this but his med list suggested he was on prednisone 40 mg daily . We are trying to confirm his last Rx. He indicated to me that this was prescribed during one of his prior admissions in December. He was initially admitted for COPD exacerbation. Subjective Subjective Interval history since last seen: Leroy remains fatigued tired but denies any pain or shortness of breath. Leroy put out 1300 mL and urine output overnight. Normal saline is currently going at 75 mL/h IV increase the rate to 150 mL/h. So far he show no signs of volume overload and remains dehydrated and under resuscitated in terms of volume replacement. He has no appetite is taken very little in orally today. Repeat labs continue to show acute on chronic kidney injury with a BUN of 84 creatinine 4.1. Anion gap is normal at 7.2. Calcium level remains high at 16.5 in spite of IV hydration and treatment with calcitonin last night. LFTs are normal. Troponins remain elevated at 910. Exam Narrative Exam Narrative: Leroy is lethargic but arousable he is oriented but just remains withdrawn. Denies any pain or dyspnea just says he feels fatigued tired. Neck veins without JVD. Lungs are clear to auscultation Heart is regular distant heart tones no audible murmur Abdomen is soft nondistended normal bowel sounds. Proximal legs show no edema. Objective Last Vital Signs Temp 36.3 C L 02/20/22 00:00 Pulse 95 H 02/20/22 13:08 Resp 15 02/20/22 13:08 BP 106/80 02/20/22 13:08 Pulse Ox 95 02/20/22 13:08 Laboratory Results - last 24 hr 02/19/22 02/19/22 02/19/22 13:35 13:47 13:47 WBC 13.33 H RBC 5.15 Hgb 15.6 Hct 46.6 MCV 91 MCH 30.3 MCHC 33.5 RDW 14.2 H Plt Count 198 MPV 12.5 H Immature Gran % 0.4 Neutrophils % 76.4 Band Neutrophils % Lymphocytes % 9.5 Atypical Lymphs % Monocytes % 10.3 Eosinophils % 3.1 Basophils % 0.3 Metamyelocytes % Myelocytes % Promyelocytes % Other Cells % Nucleated RBC % 0.0 Absolute Neutrophils 10.18 H Absolute Lymphocytes 1.27 Absolute Monocytes 1.37 H Absolute Eosinophils 0.41 Absolute Basophils 0.04 RBC Morphology Polychromasia Hypochromasia Poikilocytosis Basophilic Stippling Anisocytosis Microcytosis Macrocytosis Spherocytes Tear Drop Cells Ovalocytes Stomatocytes [place] Bodies [place] Cells/Echinocytes Acanthocytes (Spur) Schistocytes VBG pH VBG pCO2 VBG pO2 VBG HCO3 VBG Total CO2 VBG O2 Saturation VBG Base Excess VBG Lactate Sodium 128 L Potassium 4.1 Chloride 91 L Carbon Dioxide 33.4 H Anion Gap 3.6 BUN 87 H* Creatinine 4.6 H* Estimated GFR/1.73 m2 13.49 Glucose 274 H Calcium 18.7 H* Magnesium 2.0 Total Bilirubin 0.8 AST 20 ALT 19 Alkaline Phosphatase 96 Troponin I 910 H* NT-Pro-B Natriuret Pep Cancelled 86843 H Total Protein 7.0 Albumin 2.9 L Urine Color Urine Clarity Urine pH Ur Specific [place] Urine Protein Urine Ketones Urine Blood Urine Nitrite Urine Bilirubin Urine Urobilinogen Ur Leukocyte Esterase Urine RBC Urine WBC Ur Epithelial Cells Urine Crystals Urine Bacteria Urine Casts Urine Mucus Ur Culture Indicated? Urine Glucose COVID-19 Source SARS-CoV-2 (PCR) Influenza Type A (PCR) Influenza Type B (PCR) RSV (PCR) 02/19/22 02/19/22 02/19/22 13:58 14:04 16:42 WBC RBC Hgb Hct MCV MCH MCHC RDW Plt Count MPV Immature Gran % Neutrophils % Band Neutrophils % Lymphocytes % Atypical Lymphs % Monocytes % Eosinophils % Basophils % Metamyelocytes % Myelocytes % Promyelocytes % Other Cells % Nucleated RBC % Absolute Neutrophils Absolute Lymphocytes Absolute Monocytes Absolute Eosinophils Absolute Basophils RBC Morphology Polychromasia Hypochromasia Poikilocytosis Basophilic Stippling Anisocytosis Microcytosis Macrocytosis Spherocytes Tear Drop Cells Ovalocytes Stomatocytes [place] Bodies [place] Cells/Echinocytes Acanthocytes (Spur) Schistocytes VBG pH VBG pCO2 VBG pO2 VBG HCO3 VBG Total CO2 VBG O2 Saturation VBG Base Excess VBG Lactate 1.6 Sodium Potassium Chloride Carbon Dioxide Anion Gap BUN Creatinine Estimated GFR/1.73 m2 Glucose Calcium Magnesium Total Bilirubin AST ALT Alkaline Phosphatase Troponin I NT-Pro-B Natriuret Pep Total Protein Albumin Urine Color Yellow Urine Clarity Clear Urine pH 6.5 Ur Specific [place] 1.025 Urine Protein >=300 H Urine Ketones Negative Urine Blood Trace-lysed H Urine Nitrite Negative Urine Bilirubin Negative Urine Urobilinogen 0.2 Ur Leukocyte Esterase Negative Urine RBC 3-5 H Urine WBC 3-5 Ur Epithelial Cells Few Urine Crystals Negative Urine Bacteria Negative Urine Casts Negative Urine Mucus Negative Ur Culture Indicated? No Urine Glucose 500 H COVID-19 Source Nasopharynx SARS-CoV-2 (PCR) Negative Influenza Type A (PCR) Negative Influenza Type B (PCR) Negative RSV (PCR) Negative 02/19/22 02/19/22 02/20/22 16:42 22:25 07:33 WBC RBC Hgb Hct MCV MCH MCHC RDW Plt Count MPV Immature Gran % Neutrophils % Band Neutrophils % Lymphocytes % Atypical Lymphs % Monocytes % Eosinophils % Basophils % Metamyelocytes % Myelocytes % Promyelocytes % Other Cells % Nucleated RBC % Absolute Neutrophils Absolute Lymphocytes Absolute Monocytes Absolute Eosinophils Absolute Basophils RBC Morphology Polychromasia Hypochromasia Poikilocytosis Basophilic Stippling Anisocytosis Microcytosis Macrocytosis Spherocytes Tear Drop Cells Ovalocytes Stomatocytes [place] Bodies [place] Cells/Echinocytes Acanthocytes (Spur) Schistocytes VBG pH 7.42 H VBG pCO2 53 H VBG pO2 46 VBG HCO3 35 H VBG Total CO2 31 H VBG O2 Saturation 80 VBG Base Excess 10 H VBG Lactate Sodium 129 L Potassium 4.4 Chloride 92 L Carbon Dioxide 32.9 H Anion Gap 4.1 BUN 88 H* Creatinine 4.3 H* Estimated GFR/1.73 m2 14.58 Glucose 229 H Calcium 17.8 H* Magnesium Total Bilirubin AST ALT Alkaline Phosphatase Troponin I 847 H* Cancelled NT-Pro-B Natriuret Pep Total Protein Albumin Urine Color Urine Clarity Urine pH Ur Specific [place] Urine Protein Urine Ketones Urine Blood Urine Nitrite Urine Bilirubin Urine Urobilinogen Ur Leukocyte Esterase Urine RBC Urine WBC Ur Epithelial Cells Urine Crystals Urine Bacteria Urine Casts Urine Mucus Ur Culture Indicated? Urine Glucose COVID-19 Source SARS-CoV-2 (PCR) Influenza Type A (PCR) Influenza Type B (PCR) RSV (PCR) 02/20/22 02/20/22 07:33 07:33 WBC Cancelled RBC Cancelled Hgb Cancelled Hct Cancelled MCV Cancelled MCH Cancelled MCHC Cancelled RDW Cancelled Plt Count Cancelled MPV Cancelled Immature Gran % Cancelled Neutrophils % Cancelled Band Neutrophils % Cancelled Lymphocytes % Cancelled Atypical Lymphs % Cancelled Monocytes % Cancelled Eosinophils % Cancelled Basophils % Cancelled Metamyelocytes % Cancelled Myelocytes % Cancelled Promyelocytes % Cancelled Other Cells % Cancelled Nucleated RBC % Cancelled Absolute Neutrophils Cancelled Absolute Lymphocytes Cancelled Absolute Monocytes Cancelled Absolute Eosinophils Cancelled Absolute Basophils Cancelled RBC Morphology Cancelled Polychromasia Cancelled Hypochromasia Cancelled Poikilocytosis Cancelled Basophilic Stippling Cancelled Anisocytosis Cancelled Microcytosis Cancelled Macrocytosis Cancelled Spherocytes Cancelled Tear Drop Cells Cancelled Ovalocytes Cancelled Stomatocytes Cancelled [place] Bodies Cancelled [place] Cells/Echinocytes Cancelled Acanthocytes (Spur) Cancelled Schistocytes Cancelled VBG pH VBG pCO2 VBG pO2 VBG HCO3 VBG Total CO2 VBG O2 Saturation VBG Base Excess VBG Lactate Sodium 133 L Potassium 4.1 Chloride 94 L Carbon Dioxide 31.8 Anion Gap 7.2 BUN 84 H* Creatinine 4.1 H* Estimated GFR/1.73 m2 15.40 Glucose 250 H Calcium 16.5 H* Magnesium Total Bilirubin 0.7 AST 18 ALT 17 Alkaline Phosphatase 101 Troponin I 910 H* NT-Pro-B Natriuret Pep Total Protein 7.1 Albumin 2.9 L Urine Color Urine Clarity Urine pH Ur Specific [place] Urine Protein Urine Ketones Urine Blood Urine Nitrite Urine Bilirubin Urine Urobilinogen Ur Leukocyte Esterase Urine RBC Urine WBC Ur Epithelial Cells Urine Crystals Urine Bacteria Urine Casts Urine Mucus Ur Culture Indicated? Urine Glucose COVID-19 Source SARS-CoV-2 (PCR) Influenza Type A (PCR) Influenza Type B (PCR) RSV (PCR)
--- NOTE | 2022-02-20 13:45 | RT.EKG_ITS ---
APPROVED REPORT Exam: Resting ECG Reason for Exam: elevated troponin Patient Location: I HR:89 bpm ECG Measurements Heart Rate 89 AXIS ND 189 P 75 QRSd 131 QRS 49 QT 328 T 172 QTc 400 Conclusion Sinus rhythm...normal P axis, V-rate 50- 99 Nonspecific intraventricular conduction delay...QRSd >115mS, not LBBB/RBBB Nonspecific repol abnormality, diffuse leads...ST dep, T flat/neg, ant/lat/inf. Sinus. 1mm ST depression in I, aVL, V3. No STEMI. I have reviewed and interpreted ECG and agree with software generated interpretation.
[2022-02-20] MEDS: Hydrocortisone SOD SUC. 100 MG VIAL IVP (14:35)
[2022-02-20 14:44] LABS: Anion Gap 4.8 mmol/L (3-11); CO2 33.2 mmol/L (21.0-32.0); Chloride 100 mmol/L (98-107); Estimated GFR 14.98 (mL/min/1.73m2); Glucose 173 mg/dL (74-106); Sodium 138 mmol/L (136-145)
[2022-02-20 14:54] LABS: BUN 86 mg/dL (7-18); CREATININE 4.2 mg/dL (0.70-1.30); Calcium 15.4 mg/dL (8.5-10.1)
[2022-02-20 14:55] LABS: Troponin I 810 ng/L (<or=60)
[2022-02-20 15:36] LABS: Procalcitonin 0.4 ng/mL
[2022-02-20] MEDS: Lidocaine 2% Jelly 11 ML SYR UR (15:50)
[2022-02-20] MEDS: Normal Saline 500 ML 150 ML IV (15:50)
[2022-02-20] MEDS: Hydrocortisone SOD SUC. 100 MG VIAL 50 MG IVP ×2 (18:15→23:56)
[2022-02-20 20:41] LABS: Anion Gap 6.9 mmol/L (3-11); CO2 30.1 mmol/L (21.0-32.0); Chloride 100 mmol/L (98-107); Estimated GFR 15.85 (mL/min/1.73m2); Glucose 178 mg/dL (74-106); Potassium 4.4 mmol/L (3.5-5.1); Sodium 137 mmol/L (136-145)
[2022-02-20 20:43] LABS: BUN 85 mg/dL (7-18); Calcium 15.3 mg/dL (8.5-10.1)
[2022-02-20] MEDS: Cyclobenzaprine 10 MG TAB PO (21:22)
[2022-02-20] MEDS: Atorvastatin 10 MG TAB PO (21:24)
[2022-02-20] MEDS: Acetaminophen 325 MG TAB PO (21:24)
[2022-02-20] MEDS: Insulin Glargine 300 UNITS/3 ML PEN 35 UNITS SC (21:25)
[2022-02-21] VITALS (26 sets, daily range): BP systolic 106–128; BP diastolic 70–81; PULSE 88–95; RESP 0–22; TEMP 36.6–36.9; O2SAT 87–95
[2022-02-21] MEDS: Heparin 5,000 UNITS/ML VIAL 5000 UNITS SC (05:33)
[2022-02-21] MEDS: Hydrocortisone SOD SUC. 100 MG VIAL 50 MG IVP (05:33)
[2022-02-21 06:33] LABS: Abs Immature Grans 0.07 10^3/uL (0.0-0.06); Absolute Monocyte Count 0.26 10^3/uL (0.1-0.8); Basophils % 0.1; Eosinophils % 0.1; HCT 46.3 % (40.0-50.0); HGB 15.1 g/dL (13.5-17.5); Immature Grans % 0.5; Lymphocytes % 5.3; MCH 30.3 pg (27.0-33.0); MCHC 32.6 % (32.0-36.0); MCV 93 fL (80-95); MPV 12.5 fL (8.0-11.0); Monocytes % 1.7; Neutrophils % 92.3; Platelet Count 166 10^3/uL (130-400); RBC 4.99 10^6/uL (4.36-5.78); RDW 14.6 % (11.8-14.1); RDW-SD 50.2 fL; WBC 15.14 10^3/uL (4.4-10.8)
[2022-02-21 06:35] LABS: Absolute Basophil Count 0.02 10^3/uL (0.0-0.2); Absolute Eosinophil Count 0.02 10^3/uL (0.0-0.7); Absolute Neutrophil Count 13.97 10^3/uL (1.2-6.7)
[2022-02-21 07:02] LABS: ALT 16 U/L (16-63); AST 17 U/L (15-37); Albumin 2.8 g/dL (3.4-5.0); Alkaline Phosphatase 97 U/L (46-116); Bilirubin, Total 0.7 mg/dL (0.2-1.0); Chloride 98 mmol/L (98-107); Estimated GFR 15.85 (mL/min/1.73m2); Glucose 229 mg/dL (74-106); Potassium 4.6 mmol/L (3.5-5.1); Sodium 137 mmol/L (136-145); Total Protein 6.7 g/dL (6.4-8.2)
[2022-02-21 07:07] LABS: Calcium 14.7 mg/dL (8.5-10.1)
[2022-02-21 07:08] LABS: BUN 89 mg/dL (7-18); Troponin I 742 ng/L (<or=60)
[2022-02-21] MEDS: Calcitonin-Salmon 400 UNITS/2 ML VIAL 800 UNITS IM (07:38)
[2022-02-21] MEDS: Insulin Aspart 300 UNITS/3 ML PEN SC (07:41)
[2022-02-21] MEDS: Carvedilol 12.5 MG TAB PO (07:50)
[2022-02-21] MEDS: Aspirin E.C. 81 MG TABEC PO (07:50)
[2022-02-21] MEDS: Clopidogrel 75 MG TAB PO (07:51)
[2022-02-21] MEDS: Pantoprazole 20 MG TABCR PO (07:51)
[2022-02-21] MEDS: Fluticasone NASAL SPRAY 16 GM BTL NS (07:51)
[2022-02-21] MEDS: Cyanocobalamin 500 MCG TAB 1000 MCG PO (07:51)
--- NOTE | 2022-02-21 08:39 | DSE_ITS ---
Date of service: 02/21/22 Time of Service: 08:39 DS: Diagnosis Discharge Diagnosis (1) Hypercalcemia: Status: Acute (2) Acute kidney injury superimposed on chronic kidney disease: Status: Acute (3) Dehydration: Status: Acute (4) Elevated troponin: Status: Acute (5) Ischemic cardiomyopathy: Status: Acute (6) Coronary artery disease: Status: Chronic (7) CKD stage 3 secondary to diabetes: Status: Chronic (8) COPD (chronic obstructive pulmonary disease): Status: Chronic (9) Type 2 diabetes mellitus with diabetic polyneuropathy: Status: Acute Discharge Plan Disposition Patient Disposition: [facility] Condition: Stable Discharge Details Reason For Visit: CHANEL, Elevated Troponin, Hypercalcemia Admit Date/Time: 02/19/22 18:08 Admit Provider: Darek Reynolds Attending Provider: Darek Reynolds Primary Care Provider: Candice Perez Hospital Course Hospital Course: 51-year-old male with a history of CAD, ischemic cardiomyopathy, LVEF of 18% by echo, IDDM type II requiring insulin, status post bilateral BKA, not oxygen dependent COPD, CKD (baseline creatinine 2.0 to 2.4), remote hx of testicular cancer was recently hospitalized at [facility] for acute on chronic heart failure and elevated troponins he was aggressively diuresed put on goal-directed therapy including Aldactone Entresto and torsemide and had an abnormal stress MPI test that demonstrated abnormal myocardial perfusion with infarcted inferior wall and posterior wall showing both infarction and superimposed ischemia and anterior wall ischemia. Patient was referred to [facility] cardiology and underwent an outpatient cardiac catheterization this was performed 12/29/2021 and demonstrated multivessel disease including mild irregularities of the left main coronary artery and proximal regulators of his LAD and diffuse 80% disease of his diagonal with 89% disease of the mid diagonal and irregularities of his left circumflex and severe distal disease of his RCA with a total occlusion of his PDA. His LAD vessel was stented. Patient did well post procedure and was discharged home. At discharge his BUN was 38 his creatinine is 1.99. He now presents to [facility] on 02/19/2022 with symptoms of acute nausea and vomiting for the 2 days prior to admission unable to keep down any oral liquids feeling very fatigued but denying any shortness of breath or chest pain. Did complain of muscle aches in his shoulders and back. Initial work-up showed a white count of 13,000 with no fever. He demonstrated worsening of his chronic renal failure with a creatinine of 4.6 and a BUN of 87. Serum sodium is down to 128 and his chloride was 91 and carbon dioxide level is 33.4 with a normal anion gap at 3.6. Glucose was 274 but most concerning was his calcium level 18.7. Magnesium level was normal at 2.0 LFTs were normal however he was found to have an elevated troponin I level of 910 ng/L with a normal range less than 60 ng/L. His proBNP was elevated at 13,000 and his albumin was low at 2.9. His CBC demonstrated a white count of 13,000. He had no anemia his hemoglobin is 15.6 g hematocrit 46% and platelet count 198,000. Nasal PCR swab on admission was negative for COVID-19. Nasal swab was also negative for influenza and RSV. Imaging on admission included CT of his head because of his lethargy and this showed no acute intracranial process. He has some mild thickening of his sinuses. No air-fluid levels. Chest x-ray showed no acute pulmonary findings. Patient was given a bolus of normal saline 500 mL in the emergency department he was admitted to the intensive care unit where serial troponins were obtained as well as serial electrolytes BUN and creatinine were obtained. [id number] ultrasound echocardiogram was performed for goal-directed therapy as we did not have any formal echocardiography available on the day of his admission. This demonstrated severe LV dysfunction dilated left ventricle but his RV appeared to be underfilled. Images were not adequate to perform a VTI in order to assess his cardiac response to fluid boluses. He was started on normal saline at 150 mL an hour after second bolus of normal saline 500 mL was given upon arrival to the intensive care unit. Serial exams were performed to ensure that he did not go into acute congestive heart failure from the fluid challenge. Patient was started on calcitonin at 4 units/kg IM and consultation was obtained with [facility] nephrology Dr. Garcia (Dr. Floyd). We discussed giving a bisphosphonate she recommended a renally adjusted dose of pamidronate. Patient was given pamidronate 30 mg slowly over 4 hours. Serial BMPs were monitored as were serial troponin levels. At no time during hospitalization did the patient have any chest pain or dyspnea. His troponin levels leveled off and ranged from a high of 910 ng/L down to 742 ng/L. His calcium levels had a partial response to the pamidronate and calcitonin and came down to 14.7. Patient's level of alertness did improve but he still felt very fatigued and weakened. Clinical exam did not reveal any carpal spasm or Chvostek sign. However he demonstrated generalized weakness and fatigue and lethargy. On the day of transfer denosumab 120 mg was given subcutaneously as it was felt that he had a incomplete response to the medronate. [facility] was contacted and I spoke with Dr. Floyd from nephrology as well as Dr. Tu Biswas from critical care medicine. They were agreeable to transfer the patient for short run of dialysis in order to quickly get his calcium level down and improve his weakness and fatigue. Pending labs at the time of transfer include an intact PTH level, ionized calcium level, 25-hydroxy vitamin D level as well as a 1, 25 dihydroxy vitamin D level. Home Meds and New Rx's Prescriptions: No Action tramadol 100 mg tablet extended release 24 hr 100 mg PO DAILY Qty: 10 0RF Rx Instructions: trial for severe shldr pain to allow for sleep clobetasol 0.05 % spray,non-aerosol 1 applic topical BID 7 Days Qty: 59 1RF Rx Instructions: not to exceed 26 sprays per single application clopidogrel 75 mg tablet 75 mg PO DAILY Rx Instructions: take separately from reflux medication. (DME) Left Outer Sleeve See Rx Instructions .Route .MEDSUPPLY Qty: 1 0RF Rx Instructions: As directed (DME) RIGHT Prosthesis Adjustments See Rx Instructions .Route .MEDSUPPLY Qty: 1 0RF Rx Instructions: As directed Farxiga 5 mg tablet 5 mg PO DAILY Qty: 90 1RF ascorbic acid (vitamin C) 1,000 mg tablet 500 mg PO DAILY Qty: 90 1RF Rx Instructions: Doses exceeding 500mg daily will invalidate CGM sensor. 02/04/22 EO aspirin 81 mg tablet,delayed release (DR/EC) 81 mg PO DAILY Qty: 90 3RF atorvastatin 10 mg tablet 10 mg PO DAILY Qty: 90 3RF azelastine 137 mcg (0.1 %) aerosol,spray See Rx Instructions intranasal BID Qty: 30 1RF Rx Instructions: 1-2 sprays intranasal twice a day; administer into each nostril carvedilol 12.5 mg tablet 12.5 mg PO BID Qty: 180 3RF Rx Instructions: must administer with a meal/food cetirizine 10 mg tablet 10 mg PO DAILY Qty: 90 3RF cholecalciferol (vitamin D3) 25 mcg (1,000 unit) capsule 25 mcg PO DAILY Qty: 90 3RF cyanocobalamin (vitamin B-12) 1,000 mcg capsule 1,000 mcg PO DAILY Qty: 90 3RF Dupixent Syringe 200 mg/1.14 mL syringe 200 mg subcut Q2W Qty: 2.28 3RF (DME) FreeStyle Luis 2 [place] [facility] See Rx Instructions .ROUTE .MEDSUPPLY Qty: 1 0RF Rx Instructions: As directed fluticasone propion-salmeterol [Advair Diskus] 250-50 mcg/dose blister with device 1 inh inhalation BID Qty: 60 0RF fluticasone propionate [Allergy Relief (fluticasone)] 50 mcg/actuation spray,suspension 1 spray intranasal DAILY Qty: 16 1RF Rx Instructions: administer into each nostril magnesium oxide 500 mg tablet 500 mg PO DAILY Qty: 90 3RF silver sulfadiazine 1 % cream 1 applic topical BID Qty: 400 3RF Hold Instructions: Home Medication placed on hold at Doctor's office Rx Instructions: apply a 1.5 mm thickness cyclobenzaprine 10 mg tablet 10 mg PO BID PRN (Reason: muscle spasm) Qty: 30 1RF Rx Instructions: Trial for neck stiffness/spasm. Do NOT use with Tramadol. diazepam [Valium] 5 mg tablet 5 mg PO QHS PRN (Reason: sleep) Qty: 7 0RF Rx Instructions: Trial for severe neck spasm, splinting. (DME) Amputation Compression Sleeve See Rx Instructions .Route .MEDSUPPLY Qty: 1 0RF Rx Instructions: Please provide and fit a compression sleeve to the left BKA stump for ap propriate prosthesis wear. (DME) FreeStyle Luis 2 Sensor Kit See Rx Instructions .ROUTE .MEDSUPPLY Qty: 6 3RF Rx Instructions: As directed (DME) fore arm cuff crutches See Rx Instructions .Route .MEDSUPPLY Qty: 1 0RF Rx Instructions: dispense 1 pair nicotine (polacrilex) [Nicorette] 2 mg lozenge 2 mg buccal Q6H PRN (Reason: nicotine cravings) Qty: 108 1RF insulin lispro [Humalog KwikPen Insulin] 100 unit/mL insulin pen 1 sliding scale dose subcut USEASDIRECTD Qty: 15 1RF Rx Instructions: [facility] - current correction of 1u:30mg/dl, starting at 130mg/dl per pt. 01/06/21 (DME) wheel chair maintence 0 .Route .MEDSUPPLY Hold Instructions: Home Medication placed on hold at Doctor's office (DME) Wheelchair Seat 4 See Rx Instructions .Route .MEDSUPPLY Qty: 1 0RF Rx Instructions: Replace wheel chair with 4inch padded seat halobetasol propionate 0.05 % cream 1 applic topical DAILY PRN Rx Instructions: 12/07/21 apply 1-2x/day qd for 7-14 days, then 1 week off, and repeat as needed (DME) Wheelchair Maintenance See Rx Instructions .Route .MEDSUPPLY Qty: 1 0RF Rx Instructions: As directed to maintain safe transportation (DME) wheel chair seat See Rx Instructions .Route .MEDSUPPLY Qty: 1 0RF Hold Instructions: Home Medication placed on hold at Doctor's office Rx Instructions: Replace wheel chair with 4inch padded seat, as recommended acetaminophen 325 mg tablet 650 mg PO Q4H PRN Label Comments: 12/29/21 furosemide [Lasix] 40 mg tablet 40 mg PO DAILY pantoprazole 20 mg tablet,delayed release (DR/EC) 20 mg PO DAILY prednisone 20 mg tablet 40 mg PO DAILY Rx Instructions: per [facility] discharge 12/30/21 pseudoephedrine HCl [Nasal Decongestant (pseudoeph)] 120 mg tablet extended release 120 mg PO Q12H PRN (Reason: nasal congestion) Rx Instructions: per [facility] discharge 12/30/21 Entresto 24-26 mg Tablet 1 tab PO BID Qty: 60 0RF torsemide 20 mg Tablet 40 mg PO DAILY Qty: 60 0RF Spiriva Respimat 2.5 mcg/actuation Mist 2 puff inhalation DAILY Qty: 4 0RF levalbuterol tartrate 45 mcg/actuation HFA aerosol inhaler 2 inh inhalation Q6H PRN PRN (Reason: shortness of breath or wheezing) Qty: 15 0RF spironolactone 50 mg Tablet 50 mg PO DAILY Qty: 30 0RF insulin glargine [Lantus Solostar U-100 Insulin] 100 unit/mL (3 mL) insulin pen 35 unit subcut QPM Qty: 0 0RF Discharge Instructions Activity:: Bed rest Equipment/Supplies:: No Equipment Needed Diet:: Diabetic renal diet Discharge Orders Discharge Orders: Discharge Order (Routine); Ordered 02/21/22 Ordered By: Darek Reynolds DS: Summary Time Spent with Patient providing and/or coordinating discharge services: Greater than 30 minutes Specific discharge activities: Interview/exam of patient, educating patient and/or family about need for transfer and alternative treatment options, coordination of transfer w/ receiving facility and discussion of case w/ accepting provider(s), completion of transfer orders and discharge summary Status at Discharge Functional status at discharge: bed bound Overall status at discharge: patient is not back to baseline Mental Status: other (Lethargic but oriented to person place and circumstance) Speech and Movement: speech and movement normal Mood: other (Lethargic but oriented to person place and circumstance) Affect: blunted Exam Narrative Exam Narrative: Leroy is a little more alert today than yesterday still very fatigued tired does respond to my questions and seems to be oriented to person place and circumstance. Motor exam reveals generalized weakness of his arms hands. He has no tremors. There is no carpal spasm able to be elicited with reflex hammer. Likewise I was unable to elicit Chvostek reflex over the face. Lungs remain clear to auscultation Heart is regular with no appreciable murmur rub Abdomen is obese soft nontender with normal bowel sounds no guarding and no appreciable murmur and no palpable organomegaly Examination of his BKA stumps reveals no open sores and no edema or cyanosis. Psych Mental Status: other (Lethargic but oriented to person place and circumstance) Speech and Movement: speech and movement normal Mood: other (Lethargic but oriented to person place and circumstance) Affect: blunted DS: Data Vitals/I&O Vitals and I&O: Vital Signs Temperature 36.9 C 02/21/22 07:55 Temperature Source Temporal Artery Scan 02/21/22 07:55 Pulse 88 02/21/22 07:55 Pulse 92 H 02/21/22 07:01 Respiratory Rate 0 L 02/21/22 07:55 Respiratory Effort Non-Labored 02/21/22 07:55 Respiratory Depth Normal 02/21/22 07:55 Respiratory Pattern Normal 02/21/22 07:55 Blood Pressure 110/81 02/21/22 07:00 Blood Pressure Mean 86 02/21/22 07:00 Blood Pressure Position Supine 02/21/22 07:55 Pulse Oximetry 90 L 02/21/22 07:01 Oxygen Delivery Method Nasal Cannula 02/21/22 07:55 Oxygen Flow Rate 2 02/21/22 07:55 Pain Level 0 02/21/22 07:55 Intake & Output 02/20/22 02/20/22 02/21/22 11:59 23:59 11:59 Intake Total 1500 / 2250.0 750.0 / 2250.0 375 / 375 Output Total 900 / 2144 1227 / 2144 402 / 402 Balance 600 / 106.0 -477.0 / 106.0 -27 / -27 Intake: IV 1500 / 2250.0 750.0 / 2250.0 Oral 375 / 375 Output: Urine 900 / 2144 1227 / 2144 402 / 402 Other: Urine Color Yellow Yellow Yellow Urine Appearance Clear Clear Clear Urine Odor Strong None None Comment Negron being placed at thsi time. Negron being placed at thsi time. Voiding Methods Urinal Indwelling Catheter Indwelling Catheter Data Completed and Pending Labs on day of discharge: Labs from last 24 hours 02/21/22 02/21/22 02/21/22 12:00 07:48 06:20 WBC RBC Hgb Hct MCV MCH MCHC RDW Plt Count MPV Immature Gran % Neutrophils % Lymphocytes % Monocytes % Eosinophils % Basophils % Nucleated RBC % Absolute Neutrophils Absolute Lymphocytes Absolute Monocytes Absolute Eosinophils Absolute Basophils Sodium Pending Potassium Pending Chloride Pending Carbon Dioxide Pending Anion Gap Pending BUN Pending Creatinine Pending Estimated GFR/1.73 m2 Pending Glucose Pending Calcium Pending Total Bilirubin AST ALT Alkaline Phosphatase Troponin I Total Protein Albumin 25-OH Vitamin D Total Pending Vit D 1,25-Dihydroxy Procalcitonin PTH Related Peptide Pending 02/21/22 02/21/22 02/21/22 06:20 06:20 06:20 WBC 15.14 H RBC 4.99 Hgb 15.1 Hct 46.3 MCV 93 MCH 30.3 MCHC 32.6 RDW 14.6 H Plt Count 166 MPV 12.5 H Immature Gran % 0.5 Neutrophils % 92.3 Lymphocytes % 5.3 Monocytes % 1.7 Eosinophils % 0.1 Basophils % 0.1 Nucleated RBC % 0.0 Absolute Neutrophils 13.97 H Absolute Lymphocytes 0.80 L Absolute Monocytes 0.26 Absolute Eosinophils 0.02 Absolute Basophils 0.02 Sodium 137 Potassium 4.6 Chloride 98 Carbon Dioxide 27.0 Anion Gap 12.0 H BUN 89 H* Creatinine 4.0 H* Estimated GFR/1.73 m2 15.85 Glucose 229 H Calcium 14.7 H* Total Bilirubin 0.7 AST 17 ALT 16 Alkaline Phosphatase 97 Troponin I 742 H* Total Protein 6.7 Albumin 2.8 L 25-OH Vitamin D Total Vit D 1,25-Dihydroxy Pending Procalcitonin PTH Related Peptide 02/20/22 02/20/22 02/20/22 20:05 14:04 14:04 WBC RBC Hgb Hct MCV MCH MCHC RDW Plt Count MPV Immature Gran % Neutrophils % Lymphocytes % Monocytes % Eosinophils % Basophils % Nucleated RBC % Absolute Neutrophils Absolute Lymphocytes Absolute Monocytes Absolute Eosinophils Absolute Basophils Sodium 137 Potassium 4.4 Chloride 100 Carbon Dioxide 30.1 Anion Gap 6.9 BUN 85 H* Creatinine 4.0 H* Estimated GFR/1.73 m2 15.85 Glucose 178 H Calcium 15.3 H* Total Bilirubin AST ALT Alkaline Phosphatase Troponin I 810 H* Total Protein Albumin 25-OH Vitamin D Total Vit D 1,25-Dihydroxy Procalcitonin 0.4 PTH Related Peptide 02/20/22 14:04 WBC RBC Hgb Hct MCV MCH MCHC RDW Plt Count MPV Immature Gran % Neutrophils % Lymphocytes % Monocytes % Eosinophils % Basophils % Nucleated RBC % Absolute Neutrophils Absolute Lymphocytes Absolute Monocytes Absolute Eosinophils Absolute Basophils Sodium 138 Potassium 4.0 Chloride 100 Carbon Dioxide 33.2 H Anion Gap 4.8 BUN 86 H* Creatinine 4.2 H* Estimated GFR/1.73 m2 14.98 Glucose 173 H Calcium 15.4 H* Total Bilirubin AST ALT Alkaline Phosphatase Troponin I Total Protein Albumin 25-OH Vitamin D Total Vit D 1,25-Dihydroxy Procalcitonin PTH Related Peptide 02/20/22 07:33 Blood Blood Culture - Pending Preliminary micro results at discharge 02/19/22 16:42 Blood Culture - Preliminary Blood NO GROWTH 24 HOURS 02/20/22 07:33 Blood Culture - Pending Blood PFSH All Active Problems (Updated 02/19/22 @ 22:06 by Darek Reynolds MD) Dehydration (Acute) Acute kidney injury superimposed on chronic kidney disease (Acute) Elevated troponin (Acute) Hypercalcemia (Acute) Fatigue (Acute) Pulmonary hypertension (Acute) 12/29/21. [id number]. Noted during Cardiac cath, [facility]. NYHA Class IV Ischemic cardiomyopathy (Acute) w/ (+) stress test and PCI/Stenting, 12/29/21 Dermatitis, unspecified (Acute ~11/2021) 12/07/21 [facility] Coronary artery disease (Chronic) w/ dilated cardiomyopathy and (+) stress test ++> PCI/Stenting, 12/29/21 CHF exacerbation (Acute) NYHA Class IV (12/29/21) [facility] Elevated brain natriuretic peptide (BNP) level (Acute) thought to be near baseline, but unclear Hx Edema (Acute) Edema of abdomen (Acute) Chronic systolic CHF (congestive heart failure) (Acute) 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 Elevated in 2020 2' Inf/ABx/HyperGly .. [ ] re-check 03/2021! Hypertension associated with diabetes (Acute) Diabetes mellitus with complication in adult patient (Chronic) Renal insufficiency (Chronic) Hyperglycemia due to diabetes mellitus (Acute) Chronic posttraumatic stress disorder (Acute) Neck pain (Acute) acute .. due to sleeping on sofa?? coughing? History of anemia (Chronic) History of posttraumatic stress disorder (PTSD) (Acute) Long Hx, Restarted with counselor, Madison Harris. 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 Working with [employer] re: prosthetics.. Hx of right BKA (Acute) Decreased range of motion (ROM) of right knee (Acute) Flexion ok; Extension is difficult .. Continues to work with PT Amputee, below knee (Chronic) Rt, November 2020. Lft, 2018 (?) GERD (gastroesophageal reflux disease) (Chronic) PPI COPD (chronic obstructive pulmonary disease) (Chronic) Hx smoker (~10pkyr), PFTs (04/17/21). Disability examination (Acute) PFTs, 04/2021 for Disability 2' COPD. Housing or economic problem (Acute) Carpal tunnel syndrome of left wrist (Acute) Cubital bursitis of right elbow (Acute) Type 2 diabetes mellitus with diabetic polyneuropathy (Acute) Persistent proteinuria associated with type 2 diabetes mellitus (Acute) Cervical neuropathy (Acute) Tendonitis of long head of biceps brachii of right shoulder (Acute) Bursitis of right shoulder (Acute) Right shoulder pain (Acute) Acute on chronic issue: now with elbow and hand pain (ulnar), with tingling. Nasal polyp (Acute) Pt report based on past ENT 06/02/[address] Haque - surgical correction planned Allergic rhinitis due to allergen (Acute) Nasal turbinate hypertrophy (Acute) Other chronic sinusitis (Acute) Deviated nasal septum (Acute) Seasonal allergies (Acute) Corneal opacification (Acute) OS Proliferative retinopathy of both eyes (Acute) Full PRP OD ICD (implantable cardioverter-defibrillator) in place (Acute) ICD, single lead, [employer] Visia 04/27/2018 [place], [place] Vitamin D deficiency (Acute) Erectile dysfunction (Acute) Testicular cancer (Acute) Secondary hyperparathyroidism (Acute) Medical History Diabetic foot ulcer associated with type 2 diabetes mellitus RESOLVED with amputation. 09/30/20-R heel w/cellulitis-Dr Kevin,DPM 10/16/20 Debridement by Podiatry 10/30/20 [facility] Vascular - RIGHT Heel Ulcer - cont close wound care by Podiatry Finger pain, left Could this be gout? No injury. Trial Naproxen. Hx: recurrent pneumonia walking pneumonia most vines x 3 years Nasal polyps Positive cardiac stress test 2021 .. Cath, with stent placement + 12/29/21. Psoriasis Surgical History History of amputation of great toe Right History of amputation of left lower extremity History of cardiac defibrillator placement History of cataract removal with insertion of prosthetic lens (~03/02/18) Right History of cystoscopy (~12/25/13) History of gastric bypass (~07/01/14) History of orchiectomy, unilateral (~06/1999) Right History of tonsillectomy (~1979) 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 S/P cardiac catheterization 12/29/21 [facility] (Dr. Jerry Ramírez). PCI (via R radial artery) of mid-LAD. Balloon angioplasty and lithotripsy. Family History Mother Diabetes Father Diabetes Heart disease Hypertension Sister Diabetes Brother Diabetes Brother Diabetes Heart disease Hypertension Social History Smoking/Tobacco Use Status: Former Tobacco Use Quit Date: 07/18/98 Tobacco: How many years used: 10 Smoking risk assessment performed?: Yes Alcohol Intake: current Alcohol Intake frequency: 0-2 drinks per day Alcohol type: hard liquor Substance use type: does not use Adopted: No Caregiver/Support person: No Foster care: No Household members: significant other Housing: house Do you need help understanding health information?: Rarely current occupation: Unemployed Sexually active: Yes Do you think of yourself as: straight/heterosexual Current gender identity: male Do you feel safe at home: Yes Do you feel safe in your relationship?: Yes
[2022-02-21] MEDS: Budesonide/Formoterol 160/4.5 6 GM 60 PUFF INH IH (09:29)
[2022-02-21] MEDS: Tiotropium Bromide-Respimat 10 PUFF INH 2 PUFF IH (09:30)
--- NOTE | 2022-02-21 10:37 | PDOC.CMDIS ---
- If Service Date Differs Date of service: 02/21/22 Time of Service: 10:37 LACE Index Scoring Tool - Questions: Length of Stay (in days): 2 Acuity (Admit via E.D.?): Yes Comorbidities: Diabetes w/o Complication, Congestive Heart Failure, Chronic Pulmonary Disease, Any Tumor, Metastatic Solid Tumor E.D. Visits: 3 - Answers: Total Score: 13 Risk of Readmission: High Risk Care Management Discharge Reason for Hospitalization: CHANEL, Elevated Troponin, Hypercalcemia Discharge Plan: . Maverick is accepted to [facility] in transfer. Dr. Reynolds reviewed this case with Dr. Floyd from Nephrology and Dr. Tu Biswas from Critical Care Medicine. Maverick will transfer to [facility] medical, via EMS (coordinated by RN complaint evaluation supervisor). Patient/Family Education Needs: Review transfer instructions. ask me three.
== END 2022-02-21 10:29 | DRG 699 ==
LOC: ER 19:00 → ICU 19:30
PROVIDERS: Admitting Provider Internal Medicine; Emergency Provider Physician Assistant; PCP Student in an Organized Health Care Education/Training Program; Visit Provider Internal Medicine
DX: N25.81 Secondary hyperparathyroidism of renal origin (principal); I13.0 Hypertensive heart and chronic kidney disease with heart failure and stage 1 through stage 4 chronic kidney disease, or unspecified chronic kidney disease; I50.22 Chronic systolic (congestive) heart failure; N17.9 Acute kidney failure, unspecified; E86.0 Dehydration; R74.8 Abnormal levels of other serum enzymes; I25.5 Ischemic cardiomyopathy; I25.10 Atherosclerotic heart disease of native coronary artery without angina pectoris; N18.30 Chronic kidney disease, stage 3 unspecified; E11.22 Type 2 diabetes mellitus with diabetic chronic kidney disease; J44.9 Chronic obstructive pulmonary disease, unspecified; E11.42 Type 2 diabetes mellitus with diabetic polyneuropathy; Z89.512 Acquired absence of left leg below knee; Z89.511 Acquired absence of right leg below knee; Z95.5 Presence of coronary angioplasty implant and graft; I27.20 Pulmonary hypertension, unspecified; F43.12 Post-traumatic stress disorder, chronic; F43.20 Adjustment disorder, unspecified; L30.9 Dermatitis, unspecified; M54.2 Cervicalgia; E11.65 Type 2 diabetes mellitus with hyperglycemia; D64.9 Anemia, unspecified; M25.511 Pain in right shoulder; E55.9 Vitamin D deficiency, unspecified; Z98.84 Bariatric surgery status; Z85.47 Personal history of malignant neoplasm of testis; Z90.79 Acquired absence of other genital organ(s); Z87.891 Personal history of nicotine dependence; Z79.82 Long term (current) use of aspirin; Z79.4 Long term (current) use of insulin; I25.2 Old myocardial infarction
CPT/HCPCS: 36410; 36415; 80048; 80053; 82306; 82805; 84145; 87040; 87637; 93005; 94640; 96360; 96361; 96372; 99285; 70450; 71046; 81003; 81015; 82330; 82397; 82652; 83605; 83735; 83880; 84484; 85025; 93010; 99239; 99291; J0630; J0897; J1644; J1720; J2430

== ENCOUNTER 2022-03-05 14:59 | Outpatient (REF) | payer MEDICAID, SELFPAY ==
[2022-03-05 19:37] LABS: Anion Gap 13.3 mmol/L (3-11); BUN 42 mg/dL (7-18); CO2 22.7 mmol/L (21.0-32.0); CREATININE 2.3 mg/dL (0.70-1.30); Chloride 107 mmol/L (98-107); Estimated GFR 30.01 (mL/min/1.73m2); Glucose 127 mg/dL (74-106); Potassium 3.9 mmol/L (3.5-5.1); Sodium 143 mmol/L (136-145)
== END 2022-03-05 15:00 | disposition home or self-care (01) ==
LOC: LBN 14:59
PROVIDERS: PCP Student in an Organized Health Care Education/Training Program; Visit Provider Nurse Practitioner Adult Health
DX: E83.52 Hypercalcemia (principal); N17.9 Acute kidney failure, unspecified; N18.9 Chronic kidney disease, unspecified; R53.83 Other fatigue
CPT/HCPCS: 80048

== ENCOUNTER 2022-04-08 03:53 | Outpatient (CLI) | payer MEDICAID, SELFPAY ==
[2022-04-08 09:53] LABS: Hemoglobin A1C 8.2 % (<5.7)
[2022-04-08 10:22] LABS: ALT 14 U/L (16-63); AST 17 U/L (15-37); Albumin 2.4 g/dL (3.4-5.0); Alkaline Phosphatase 103 U/L (46-116); BUN 49 mg/dL (7-18); Bilirubin, Total 0.3 mg/dL (0.2-1.0); CREATININE 2.1 mg/dL (0.70-1.30); Chloride 106 mmol/L (98-107); Estimated GFR 37.18 (mL/min/1.73m2); Glucose 177 mg/dL (74-106); Potassium 4.2 mmol/L (3.5-5.1); Sodium 141 mmol/L (136-145)
== END 2022-04-08 03:54 | disposition home or self-care (01) ==
LOC: LBO 03:53
PROVIDERS: PCP Student in an Organized Health Care Education/Training Program; Visit Provider Student in an Organized Health Care Education/Training Program
DX: D64.9 Anemia, unspecified (principal); N17.9 Acute kidney failure, unspecified; R73.09 Other abnormal glucose; E83.52 Hypercalcemia; R77.0 Abnormality of albumin
CPT/HCPCS: 36415; 80053; 83036; 85018

== ENCOUNTER 2022-05-10 03:25 | Outpatient (CLI) | payer MEDICAID, SELFPAY ==
[2022-05-10 12:37] LABS: Abs Immature Grans 0.02 10^3/uL (0.0-0.06); Absolute Basophil Count 0.04 10^3/uL (0.0-0.2); Absolute Eosinophil Count 0.72 10^3/uL (0.0-0.7); Absolute Lymphocyte Count 1.16 10^3/uL (1.2-3.4); Absolute Monocyte Count 0.79 10^3/uL (0.1-0.8); Absolute Neutrophil Count 6.15 10^3/uL (1.2-6.7); Basophils % 0.5; Eosinophils % 8.1; HCT 40.4 % (40.0-50.0); HGB 13.2 g/dL (13.5-17.5); Immature Grans % 0.2; Lymphocytes % 13.1; MCH 30.9 pg (27.0-33.0); MCHC 32.7 % (32.0-36.0); MCV 95 fL (80-95); MPV 10.9 fL (8.0-11.0); Monocytes % 8.9; Neutrophils % 69.2; Platelet Count 171 10^3/uL (130-400); RBC 4.27 10^6/uL (4.36-5.78); RDW-SD 44.2 fL; WBC 8.88 10^3/uL (4.4-10.8)
[2022-05-10 13:28] LABS: Anion Gap 9.2 mmol/L (3-11); BUN 72 mg/dL (7-18); CO2 22.8 mmol/L (21.0-32.0); CREATININE 2.6 mg/dL (0.70-1.30); Calcium 7.9 mg/dL (8.5-10.1); Chloride 107 mmol/L (98-107); Estimated GFR 28.77 (mL/min/1.73m2); Ferritin 43 ng/mL (26-388); Glucose 173 mg/dL (74-106); Potassium 5.2 mmol/L (3.5-5.1); Sodium 139 mmol/L (136-145)
[2022-05-10 13:53] LABS: Iron 42 ug/dL (65-175); Total Iron Binding Capacity 311 ug/dL (250-450); Transferrin Sat 14 % (20-55)
== END 2022-05-10 03:26 | disposition home or self-care (01) ==
LOC: LBO 03:25
PROVIDERS: PCP Student in an Organized Health Care Education/Training Program; Referring Provider Student in an Organized Health Care Education/Training Program; Visit Provider Student in an Organized Health Care Education/Training Program
DX: D64.9 Anemia, unspecified (principal); N18.9 Chronic kidney disease, unspecified; E11.22 Type 2 diabetes mellitus with diabetic chronic kidney disease; R60.0 Localized edema
CPT/HCPCS: 36415; 80048; 82728; 83540; 83550; 85025

== ENCOUNTER 2022-08-30 01:12 | Outpatient (CLI) | payer MEDICAID, SELFPAY ==
[2022-08-30 16:30] LABS: Anion Gap 9.3 mmol/L (3-11); CO2 22.7 mmol/L (21.0-32.0); Calcium 8.7 mg/dL (8.5-10.1); Chloride 105 mmol/L (98-107); Estimated GFR 19.47 (mL/min/1.73m2); Glucose 173 mg/dL (74-106); Potassium 5.7 mmol/L (3.5-5.1); Sodium 137 mmol/L (136-145)
[2022-08-30 16:43] LABS: BUN 86 mg/dL (7-18); CREATININE 3.6 mg/dL (0.70-1.30)
== END 2022-08-30 01:13 | disposition home or self-care (01) ==
LOC: LBO 01:12
PROVIDERS: PCP Student in an Organized Health Care Education/Training Program; Visit Provider Student in an Organized Health Care Education/Training Program
DX: R79.89 Other specified abnormal findings of blood chemistry (principal)
CPT/HCPCS: 36415; 80048

== ENCOUNTER 2022-09-02 08:38 | Outpatient (CLI) | payer MEDICAID, SELFPAY ==
--- NOTE | 2022-09-02 08:30 | RT.EKG_ITS ---
APPROVED REPORT Exam: Resting ECG Reason for Exam: High potassium Patient Location: O HR:91 bpm ECG Measurements Heart Rate 91 AXIS IN 217 P 31 QRSd 119 QRS 50 QT 374 T 189 QTc 461 Conclusion Sinus rhythm...normal P axis, V-rate 50- 99 Prolonged IN interval...IN >205, V-rate 91-120 Nonspecific intraventricular conduction delay...QRSd >115mS, not LBBB/RBBB Low voltage, extremity and precordial leads...extremity<0.5mV, precordial<1.0mV Nonspecific T abnormalities, lateral leads...T <-0.10mV, I aVL V5 V6
== END 2022-09-02 08:39 | disposition home or self-care (01) ==
LOC: DI.KIM 08:40
PROVIDERS: PCP Student in an Organized Health Care Education/Training Program; Visit Provider Student in an Organized Health Care Education/Training Program
DX: E87.5 Hyperkalemia (principal); R94.31 Abnormal electrocardiogram [ECG] [EKG]
CPT/HCPCS: 93010

== ENCOUNTER 2022-09-02 09:52 | Outpatient (REF) | payer MEDICAID, SELFPAY ==
[2022-09-02 15:49] LABS: ALT 19 U/L (16-63); AST 14 U/L (15-37); Albumin 3.1 g/dL (3.4-5.0); Alkaline Phosphatase 103 U/L (46-116); Anion Gap 8.8 mmol/L (3-11); Bilirubin, Total 0.5 mg/dL (0.2-1.0); CO2 23.2 mmol/L (21.0-32.0); CREATININE 3.4 mg/dL (0.70-1.30); Calcium 8.7 mg/dL (8.5-10.1); Chloride 106 mmol/L (98-107); Estimated GFR 20.85 (mL/min/1.73m2); Glucose 160 mg/dL (74-106); Magnesium 2.4 mg/dL (1.8-2.4); Potassium 5.7 mmol/L (3.5-5.1); Sodium 138 mmol/L (136-145); Total Protein 6.7 g/dL (6.4-8.2)
[2022-09-02 15:57] LABS: BUN 85 mg/dL (7-18)
== END 2022-09-02 09:53 | disposition home or self-care (01) ==
LOC: LBN 09:52
PROVIDERS: PCP Student in an Organized Health Care Education/Training Program; Referring Provider Student in an Organized Health Care Education/Training Program; Visit Provider Student in an Organized Health Care Education/Training Program
DX: E87.5 Hyperkalemia (principal); E87.8 Other disorders of electrolyte and fluid balance, not elsewhere classified; E11.22 Type 2 diabetes mellitus with diabetic chronic kidney disease; N17.9 Acute kidney failure, unspecified; N18.30 Chronic kidney disease, stage 3 unspecified; N18.9 Chronic kidney disease, unspecified
CPT/HCPCS: 80053; 83735

== ENCOUNTER 2022-09-23 02:58 | Outpatient (CLI) | payer MEDICAID, SELFPAY ==
[2022-09-23 11:24] LABS: Anion Gap 10.9 mmol/L (3-11); CO2 26.1 mmol/L (21.0-32.0); CREATININE 3.5 mg/dL (0.70-1.30); Calcium 9.2 mg/dL (8.5-10.1); Chloride 102 mmol/L (98-107); Estimated GFR 20.14 (mL/min/1.73m2); Glucose 182 mg/dL (74-106); Sodium 139 mmol/L (136-145)
[2022-09-23 11:29] LABS: BUN 96 mg/dL (7-18)
== END 2022-09-23 02:59 | disposition home or self-care (01) ==
LOC: LBO 02:58
PROVIDERS: PCP Student in an Organized Health Care Education/Training Program; Referring Provider Student in an Organized Health Care Education/Training Program; Visit Provider Student in an Organized Health Care Education/Training Program
DX: R79.89 Other specified abnormal findings of blood chemistry (principal); E87.5 Hyperkalemia; E11.22 Type 2 diabetes mellitus with diabetic chronic kidney disease; N18.30 Chronic kidney disease, stage 3 unspecified
CPT/HCPCS: 36415; 80048

== ENCOUNTER 2022-09-30 01:37 | Outpatient (RCR) | payer MEDICAID, SELFPAY ==
[2022-09-30] MEDS: Normal Saline 1,000 ML 300 ML IV (09:00)
[2022-09-30] MEDS: Normal Saline Flush 10 ML SYR IVP (09:01)
[2022-09-30 09:51] LABS: Bilirubin Negative (Negative); Blood Trace-intact (Negative); Clarity Clear (Clear); Glucose 100 mg/dL (Negative); Ketones Negative (Negative); Leukocyte Esterase Negative (Negative); Nitrite Negative (Negative); Urobilinogen 0.2 mg/dL (Up to 0.2); pH 5.5 (5-8)
[2022-09-30 10:55] LABS: Bacteria Rare HPF (Negative); C & S Indicated? No; Casts 0-2 Hyaline LPF (Negative); Crystals Negative HPF (Negative); Epithelial Cells Rare HPF (Negative); Mucus Negative (Negative); RBC 0-2 HPF (0-2); WBC Negative HPF (0-5)
[2022-09-30 13:26] LABS: Anion Gap 6.9 mmol/L (3-11); CO2 23.1 mmol/L (21.0-32.0); CREATININE 3.5 mg/dL (0.70-1.30); Calcium 9.1 mg/dL (8.5-10.1); Chloride 105 mmol/L (98-107); Estimated GFR 20.14 (mL/min/1.73m2); Glucose 168 mg/dL (74-106); Magnesium 2.2 mg/dL (1.8-2.4); PHOSPHORUS 6.1 mg/dL (2.6-4.7); Potassium 5.2 mmol/L (3.5-5.1); Sodium 135 mmol/L (136-145)
[2022-09-30 13:29] LABS: BUN 97 mg/dL (7-18)
[2022-09-30 13:35] LABS: Albumin 3.2 g/dL (3.4-5.0)
[2022-09-30 13:43] LABS: Hemoglobin A1C 8.6 % (<5.7)
== END 2022-10-15 23:59 | disposition home or self-care (01) ==
LOC: INF 01:37
PROVIDERS: PCP Student in an Organized Health Care Education/Training Program; Visit Provider Student in an Organized Health Care Education/Training Program
DX: N17.9 Acute kidney failure, unspecified (principal); R77.0 Abnormality of albumin; I27.20 Pulmonary hypertension, unspecified; E11.42 Type 2 diabetes mellitus with diabetic polyneuropathy; R39.9 Unspecified symptoms and signs involving the genitourinary system; N18.9 Chronic kidney disease, unspecified
CPT/HCPCS: 36415; 80048; 96360; 96361; 81003; 81015; 82040; 83036; 83735; 84100

== ENCOUNTER 2022-10-21 03:40 | Outpatient (CLI) | payer MEDICAID, SELFPAY ==
[2022-10-21 12:36] LABS: HCT 41.2 % (40.0-50.0); HGB 13.6 g/dL (13.5-17.5); MCH 31.4 pg (27.0-33.0); MCV 95 fL (80-95); MPV 10.6 fL (8.0-11.0); Platelet Count 202 10^3/uL (130-400); RBC 4.33 10^6/uL (4.36-5.78); RDW 12.8 % (11.8-14.1); RDW-SD 44.7 fL; WBC 13.53 10^3/uL (4.4-10.8)
[2022-10-21 13:18] LABS: Anion Gap 8.5 mmol/L (3-11); CO2 25.5 mmol/L (21.0-32.0); CREATININE 3.5 mg/dL (0.70-1.30); Calcium 8.8 mg/dL (8.5-10.1); Chloride 103 mmol/L (98-107); Estimated GFR 20.14 (mL/min/1.73m2); Glucose 164 mg/dL (74-106); Magnesium 2.5 mg/dL (1.8-2.4); Potassium 5.6 mmol/L (3.5-5.1); Sodium 137 mmol/L (136-145)
[2022-10-21 13:21] LABS: BUN 89 mg/dL (7-18)
== END 2022-10-21 03:41 | disposition home or self-care (01) ==
LOC: LBO 03:40
PROVIDERS: PCP Student in an Organized Health Care Education/Training Program; Referring Provider Student in an Organized Health Care Education/Training Program; Visit Provider Student in an Organized Health Care Education/Training Program
DX: E61.1 Iron deficiency (principal); N17.9 Acute kidney failure, unspecified; R77.0 Abnormality of albumin; R79.89 Other specified abnormal findings of blood chemistry; N18.9 Chronic kidney disease, unspecified
CPT/HCPCS: 36415; 80048; 85027; 82040; 83735; 84100

== ENCOUNTER 2022-11-04 03:32 | Outpatient (CLI) | payer MEDICAID, SELFPAY ==
[2022-11-04 11:19] LABS: ALT 19 U/L (16-63); AST 13 U/L (15-37); Albumin 3.1 g/dL (3.4-5.0); Alkaline Phosphatase 118 U/L (46-116); Anion Gap 10.8 mmol/L (3-11); Bilirubin, Total 0.3 mg/dL (0.2-1.0); CO2 24.2 mmol/L (21.0-32.0); Calcium 8.8 mg/dL (8.5-10.1); Chloride 103 mmol/L (98-107); Estimated GFR 19.47 (mL/min/1.73m2); Glucose 154 mg/dL (74-106); Magnesium 1.8 mg/dL (1.8-2.4); Potassium 5.4 mmol/L (3.5-5.1); Sodium 138 mmol/L (136-145); Total Protein 7.4 g/dL (6.4-8.2)
[2022-11-04 11:24] LABS: BUN 88 mg/dL (7-18); CREATININE 3.6 mg/dL (0.70-1.30)
== END 2022-11-04 03:33 | disposition home or self-care (01) ==
LOC: LBO 03:32
PROVIDERS: Nurse Practitioner Family; PCP Student in an Organized Health Care Education/Training Program; Visit Provider Student in an Organized Health Care Education/Training Program
DX: E83.41 Hypermagnesemia (principal); E87.5 Hyperkalemia; N17.9 Acute kidney failure, unspecified; E83.42 Hypomagnesemia
CPT/HCPCS: 36415; 80053; 83735

== ENCOUNTER 2022-12-02 03:14 | Outpatient (CLI) | payer MEDICAID, SELFPAY ==
[2022-12-02 10:14] LABS: Hemoglobin A1C 8.5 % (<5.7)
[2022-12-02 10:29] LABS: ALT 13 U/L (16-63); AST 12 U/L (15-37); Albumin 3.2 g/dL (3.4-5.0); Alkaline Phosphatase 113 U/L (46-116); Anion Gap 9.8 mmol/L (3-11); Bilirubin, Total 0.4 mg/dL (0.2-1.0); CO2 27.2 mmol/L (21.0-32.0); Calcium 8.9 mg/dL (8.5-10.1); Chloride 104 mmol/L (98-107); Estimated GFR 19.47 (mL/min/1.73m2); Glucose 107 mg/dL (74-106); Magnesium 1.9 mg/dL (1.8-2.4); Sodium 141 mmol/L (136-145); Total Protein 7.4 g/dL (6.4-8.2)
[2022-12-02 10:35] LABS: BUN 90 mg/dL (7-18); CREATININE 3.6 mg/dL (0.70-1.30)
[2022-12-02 10:52] LABS: Vitamin D 25 Total 22.6 ng/mL (30-100)
== END 2022-12-02 03:15 | disposition home or self-care (01) ==
LOC: LBO 03:14
PROVIDERS: PCP Student in an Organized Health Care Education/Training Program; Visit Provider Student in an Organized Health Care Education/Training Program
DX: E55.9 Vitamin D deficiency, unspecified (principal); R73.09 Other abnormal glucose; R77.0 Abnormality of albumin; E61.1 Iron deficiency; N17.9 Acute kidney failure, unspecified; N18.4 Chronic kidney disease, stage 4 (severe); I25.10 Atherosclerotic heart disease of native coronary artery without angina pectoris; I25.5 Ischemic cardiomyopathy; I50.22 Chronic systolic (congestive) heart failure
CPT/HCPCS: 36415; 80053; 82306; 83036; 83735; 84100

== ENCOUNTER 2023-03-07 04:33 | Outpatient (CLI) | payer BC, SELFPAY ==
[2023-03-07 11:30] LABS: Anion Gap 10.4 mmol/L (3-11); CO2 26.6 mmol/L (21.0-32.0); Chloride 102 mmol/L (98-107); Estimated GFR 18.13 (mL/min/1.73m2); Glucose 98 mg/dL (74-106); Magnesium 1.7 mg/dL (1.8-2.4); PHOSPHORUS 6.4 mg/dL (2.6-4.7); Potassium 4.4 mmol/L (3.5-5.1); Sodium 139 mmol/L (136-145)
[2023-03-07 11:41] LABS: BUN 102 mg/dL (7-18)
[2023-03-07 11:42] LABS: CREATININE 3.8 mg/dL (0.70-1.30)
[2023-03-07 12:05] LABS: Ferritin 54 ng/mL (26-388)
[2023-03-08 02:59] LABS: Vitamin D 25 Total 27.6 ng/mL (30-100)
[2023-03-08 18:37] LABS: Parathyroid Hormone,Intact 173 pg/mL (19-88)
== END 2023-03-07 04:34 | disposition home or self-care (01) ==
LOC: LBO 04:33
PROVIDERS: Absent Provider Student in an Organized Health Care Education/Training Program; PCP Student in an Organized Health Care Education/Training Program; Visit Provider Student in an Organized Health Care Education/Training Program
DX: I25.10 Atherosclerotic heart disease of native coronary artery without angina pectoris (principal); I50.22 Chronic systolic (congestive) heart failure; N18.4 Chronic kidney disease, stage 4 (severe); E61.1 Iron deficiency; R77.0 Abnormality of albumin; N17.9 Acute kidney failure, unspecified
CPT/HCPCS: 36415; 80048; 82306; 82728; 83735; 83970; 84100

== ENCOUNTER 2023-10-27 11:18 | Inpatient (IN) | payer BC, SELFPAY ==
[2023-10-27] VITALS (63 sets, daily range): BP systolic 127–190; BP diastolic 82–134; PULSE 85–102; RESP 14–29; TEMP 36.4–36.8; O2SAT 94
--- NOTE | 2023-10-27 11:30 | RT.EKG_ITS ---
APPROVED REPORT Exam: Resting ECG Reason for Exam: SOB Patient Location: E HR:94 bpm ECG Measurements Heart Rate 94 AXIS OH 206 P -10 QRSd 115 QRS 128 QT 364 T -63 QTc 456 Conclusion Sinus rhythm 94 no stemi
--- NOTE | 2023-10-27 12:15 | DI.RAD_ITS ---
Exam(s) XR PORTABLE CHEST AP EXAM: XR PORTABLE CHEST AP CLINICAL HISTORY: SOB TECHNIQUE: 2D digital imaging was performed of the chest. One image was obtained. An AP view was ob tained. COMPARISON: CR,XR XR PORTABLE CHEST AP from 12/14/2021 CR XR CHEST 2V PA LATERAL from 02/19/2022 FINDINGS: MEDIASTINUM: Normal. HEART: Cardiomegaly. PULMONARY VASCULATURE: Pulmonary venous congestion. LUNGS: No focal consolidating infiltrates. PLEURAL SPACE: No pleural effusion or pneumothorax. BONE:Within normal limits for the patient's age. OTHER FINDINGS:Cardiac device is in place. IMPRESSION: Cardiomegaly. Mild pulmonary venous congestion. DATA REPOSITORY: RADIATION DOSE DELIVERED:
[2023-10-27 12:23] LABS: Abs Immature Grans 0.02 10^3/uL (0.0-0.06); Absolute Basophil Count 0.06 10^3/uL (0.0-0.2); Absolute Eosinophil Count 0.53 10^3/uL (0.0-0.7); Absolute Lymphocyte Count 0.88 10^3/uL (1.2-3.4); Absolute Monocyte Count 1.03 10^3/uL (0.1-0.8); Basophils % 0.5; Eosinophils % 4.6; HCT 46.2 % (40.0-50.0); HGB 14.4 g/dL (13.5-17.5); Immature Grans % 0.2; Lymphocytes % 7.7; MCH 31.9 pg (27.0-33.0); MCHC 31.2 % (32.0-36.0); MCV 102 fL (80-95); MPV 11.1 fL (8.0-11.0); Platelet Count 155 10^3/uL (130-400); RBC 4.52 10^6/uL (4.36-5.78); RDW 15.5 % (11.8-14.1); RDW-SD 58.5 fL; WBC 11.42 10^3/uL (4.4-10.8)
[2023-10-27 12:25] LABS: Absolute Neutrophil Count 8.91 10^3/uL (1.2-6.7)
[2023-10-27 12:36] LABS: ALT 20 U/L (16-63); AST 19 U/L (15-37); Albumin 2.8 g/dL (3.4-5.0); Alkaline Phosphatase 118 U/L (46-116); Anion Gap 7.4 mmol/L (3-11); Bilirubin, Total 0.4 mg/dL (0.2-1.0); CO2 30.6 mmol/L (21.0-32.0); Calcium 8.4 mg/dL (8.5-10.1); Chloride 103 mmol/L (98-107); Estimated GFR 17.58 (mL/min/1.73m2); Glucose 120 mg/dL (74-106); Magnesium 2.5 mg/dL (1.8-2.4); NT-proBNP 18594 pg/mL (<300); Potassium 5.4 mmol/L (3.5-5.1); Sodium 141 mmol/L (136-145); Total Protein 6.7 g/dL (6.4-8.2)
[2023-10-27 12:40] LABS: BUN 83 mg/dL (7-18); CREATININE 3.9 mg/dL (0.70-1.30); Troponin I 307 ng/L (< or =60)
[2023-10-27] MEDS: Furosemide 100 MG/10 ML VIAL 160 MG IVP ×2 (13:05→20:20)
--- NOTE | 2023-10-27 14:21 | W.ED.GENAD ---
Discharge Plan Disposition Patient Disposition: Admit to [facility] Condition: Stable Discharge Details Chief Complaint: SOB Clinical Impression: Chronic systolic CHF (congestive heart failure), CHF exacerbation, Ischemic cardiomyopathy, CKD (chronic kidney disease) stage 4, GFR 15-29 ml/min Primary Care Provider: Candice Perez ED Provider: Lauri Worley Home Meds and New Rx's Prescriptions: No Action (DME) Left Outer Sleeve See Rx Instructions .Route .MEDSUPPLY Qty: 1 0RF Rx Instructions: As directed (DME) Right prosthetic socket See Rx Instructions .Route .MEDSUPPLY Qty: 1 0RF Rx Instructions: As directed (DME) glucometer WITH MATCHING TEST STRIPS See Rx Instructions .Route .MEDSUPPLY Qty: 1 0RF Rx Instructions: Using TID until CGM available, then as back-up (DME) lancets Misc See Rx Instructions .ROUTE .MEDSUPPLY Qty: 300 3RF Rx Instructions: To check blood glucose three times daily. On insulin. Dispense covered brand. (DME) Sleeve, Left BKA See Rx Instructions .Route .MEDSUPPLY Qty: 1 0RF Rx Instructions: Per measure & fit by [employer] (DME) Sleeve, Right BKA See Rx Instructions .Route .MEDSUPPLY Qty: 1 0RF Rx Instructions: Per measure & fit by [employer] cyclobenzaprine 10 mg tablet 10 mg PO BID PRN (Reason: muscle spasm) Qty: 30 1RF Hold Instructions: Home Medication placed on hold at Doctor's office Rx Instructions: Trial for neck stiffness/spasm. Do NOT use with Tramadol. diazepam [Valium] 5 mg tablet 5 mg PO QHS PRN (Reason: sleep) Qty: 7 0RF Hold Instructions: Home Medication placed on hold at Doctor's office Rx Instructions: Trial for severe neck spasm, splinting. 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 A1C < 7.5 multivitamin with iron Tablet 1 tab PO DAILY Qty: 90 3RF Rx Instructions: Take one tablet daily by mouth spironolactone 50 mg tablet 50 mg PO DAILY Qty: 90 2RF Rx Instructions: Continue (with possible BID use if torsemide increased 2' acute edema) ferrous sulfate 325 mg (65 mg iron) tablet 325 mg PO DAILY Rx Instructions: [facility] [employer] ([employer]) Amputation Compression Sleeve See Rx Instructions .Route .MEDSUPPLY Qty: 1 0RF Rx Instructions: Please provide and fit a compression sleeve to the left BKA stump for appropriate prosthesis wear. (DME) fore arm cuff crutches See Rx Instructions .Route .MEDSUPPLY Qty: 1 0RF Rx Instructions: dispense 1 pair nicotine (polacrilex) [Nicorette] 2 mg lozenge 2 mg buccal Q6H PRN (Reason: nicotine cravings) Qty: 108 1RF Hold Instructions: Home Medication placed on hold at Doctor's office halobetasol propionate 0.05 % cream 1 applic topical DAILY PRN Hold Instructions: Home Medication placed on hold at Doctor's office Rx Instructions: 12/07/21 apply 1-2x/day qd for 7-14 days, then 1 week off, and repeat as needed pseudoephedrine HCl [Nasal Decongestant (pseudoeph)] 120 mg tablet extended release 120 mg PO Q12H PRN (Reason: nasal congestion) Hold Instructions: Home Medication placed on hold at Doctor's office Rx Instructions: per [facility] discharge 12/30/21 acetaminophen 325 mg tablet 650 mg PO Q4H PRN (Reason: fever or pain) Qty: 180 1RF azelastine 137 mcg (0.1 %) aerosol,spray See Rx Instructions intranasal BID Qty: 30 1RF Rx Instructions: 1-2 sprays intranasal twice a day; administer into each nostril Dupixent Syringe 200 mg/1.14 mL syringe 200 mg subcut Q2W Qty: 2.28 3RF (DME) FreeStyle Luis 2 [place] [facility] See Rx Instructions .ROUTE .MEDSUPPLY Qty: 1 0RF Hold Instructions: Home Medication placed on hold at Doctor's office Rx Instructions: As directed (DME) FreeStyle Luis 2 Sensor Kit See Rx Instructions .ROUTE .MEDSUPPLY Qty: 6 3RF Hold Instructions: Home Medication placed on hold at Doctor's office Rx Instructions: As directed fluticasone propion-salmeterol [Advair Diskus] 250-50 mcg/dose blister with device 1 inh inhalation BID Qty: 60 0RF levalbuterol tartrate 45 mcg/actuation HFA aerosol inhaler 2 inh inhalation Q6H PRN PRN (Reason: shortness of breath or wheezing) Qty: 15 0RF magnesium oxide 500 mg tablet 500 mg PO DAILY Qty: 90 3RF Hold Instructions: MAg, K elevated silver sulfadiazine 1 % cream 1 applic topical BID Qty: 400 3RF Hold Instructions: Home Medication placed on hold at Doctor's office Rx Instructions: apply a 1.5 mm thickness to lower leg surgical site clobetasol 0.05 % spray,non-aerosol 1 applic topical BID 7 Days Qty: 59 1RF Rx Instructions: not to exceed 26 sprays per single application fluticasone propionate [Allergy Relief (fluticasone)] 50 mcg/actuation spray,suspension 1 spray intranasal DAILY Qty: 16 1RF Rx Instructions: administer into each nostril carvedilol 12.5 mg tablet 12.5 mg PO BID Qty: 180 3RF Rx Instructions: must administer with a meal/food aspirin 81 mg tablet,delayed release (DR/EC) 81 mg PO DAILY Qty: 90 3RF atorvastatin 10 mg tablet 10 mg PO DAILY Qty: 90 3RF cetirizine 10 mg tablet 10 mg PO DAILY Qty: 90 3RF cholecalciferol (vitamin D3) 25 mcg (1,000 unit) capsule 25 mcg PO DAILY Qty: 90 3RF cyanocobalamin (vitamin B-12) 1,000 mcg capsule 1,000 mcg PO DAILY Qty: 90 3RF (DME) Contour Test Strips Strip See Rx Instructions .Route Qty: 100 2RF Rx Instructions: DX E11.9 Check BS TID use as back up if CGM fails. pantoprazole 40 mg tablet,delayed release (DR/EC) 40 mg PO DAILY Qty: 90 3RF clopidogrel 75 mg tablet 75 mg PO DAILY Qty: 30 5RF Rx Instructions: take separately from reflux medication. guaifenesin 600 mg tablet extended release 12hr 600 mg PO BID Qty: 20 1RF Farxiga 5 mg tablet See Rx Instructions .ROUTE .COMPLEX Qty: 28 10RF Dose Instruction: TAKE 1 TABLET BY MOUTH DAILY FOR TYPE 2 DIABETES MELLITUS NOT AT GOAL, STAGE 3 CKD Rx Instructions: TAKE 1 TABLET BY MOUTH DAILY FOR TYPE 2 DIABETES MELLITUS NOT AT GOAL, STAGE 3 CKD ascorbic acid (vitamin C) 1,000 mg tablet 500 mg PO DAILY Qty: 90 3RF Rx Instructions: Doses exceeding 500mg daily will invalidate CGM sensor. 02/04/22 EO insulin lispro [Humalog KwikPen Insulin] 100 unit/mL insulin pen 1 sliding scale dose subcut USEASDIRECTD MDD 50 units Qty: 15 3RF Rx Instructions: [facility] Endo - current correction of 1u:30mg/dl, starting at 130mg/dl per pt. 01/06/21 Spiriva Respimat 2.5 mcg/actuation mist See Rx Instructions .ROUTE .COMPLEX Qty: 4 3RF Dose Instruction: INHALE 2 PUFFS BY MOUTH DAILY Rx Instructions: INHALE 2 PUFFS BY MOUTH DAILY Ozempic 0.25 mg or 0.5 mg (2 mg/3 mL) pen injector 0.5 mg subcut QWEEK Qty: 3 2RF Rx Instructions: for 4 weeks minimum; may increase to 1mg (TBD with CDE/Pharmacist or PCP) (DME) pen needle, diabetic [BD Ultra-Fine Mini Pen Needle] 31 gauge x 3/16 needle See Rx Instructions .Route Qty: 300 3RF Rx Instructions: As directed for injecting Lantus/humalog to maintain A1C < 7, DM E11.8 insulin glargine [Lantus Solostar U-100 Insulin] 100 unit/mL (3 mL) insulin pen 35 unit subcut QPM Qty: 35 3RF torsemide 20 mg tablet 100 mg PO DAILY Rx Instructions: Rx changed 07/21/23 torsemide 20 mg tablet See Rx Instructions PO DAILY PRN (Reason: acute edema, abd swelling, dyspnea (MAY NEED LABS)) Qty: 100 1RF Rx Instructions: Additional 1-4 tabs, based on weight gain & d/w PCP orally daily PRN; Special EXTRA dose, per d/w Med Team HPI General Date/Time Provider Initiated Documentation: 10/27/23 11:54. Limitations to Documentation: no limitations. Information obtained by: patient. HPI Narrative: 53-year-old gentleman with multiple medical comorbidities including type 2 diabetes, CKD, hypertension, obesity, bilateral lower extremity amputation, ischemic cardiomyopathy, CHF. Patient was referred to the hospital for volume overload by his primary care provider. He reports that he has been having increased shortness of breath and swelling. This has been ongoing for the last week. He has increased his diuretic dosing at home. Has been taking up to 180 mg of furosemide daily. He reports that he is still making urine, he states that his weight is up significantly, his belly feels tight, his legs are not sitting into his prosthesis comfortably because of the swelling. He denies any chest pain. Related Data Home Medications Medication Instructions Recorded Confirmed Amputation Compression Sleeve #1 ea 01/26/21 10/21/23 fore arm cuff crutches #1 ea 06/07/21 10/21/23 nicotine (polacrilex) 2 mg buccal 2 mg buccal Q6H PRN nicotine 06/16/21 10/27/23 lozenge (Nicorette) cravings #108 ea cyclobenzaprine 10 mg tablet 10 mg PO BID PRN muscle spasm #30 09/04/21 10/27/23 tabs diazepam 5 mg tablet (Valium) 5 mg PO QHS PRN sleep #7 tabs 09/04/21 10/27/23 Left Outer Sleeve #1 ea 12/07/21 10/21/23 halobetasol propionate 0.05 % 1 applic topical DAILY PRN 12/15/21 10/27/23 topical cream pseudoephedrine HCl 120 mg 120 mg PO Q12H PRN nasal congestion 01/01/22 10/27/23 tablet,extended release (Nasal Decongestant (pseudoephedrine)) mupirocin 2 % topical ointment 1 applic topical BID-TID #15 grams 03/05/22 10/27/23 acetaminophen 325 mg tablet 650 mg (2 x 325 mg) PO Q4H PRN 04/02/22 10/27/23 fever or pain #180 tabs azelastine 137 mcg (0.1 %) nasal See Rx Instructions intranasal BID 04/02/22 10/27/23 spray aerosol #30 mL dupilumab 200 mg/1.14 mL 200 mg (1.14 mL) subcut Q2W #2.28 04/02/22 10/27/23 subcutaneous syringe (Dupixent) mL flash glucose scanning reader #1 ea 04/02/22 10/21/23 (FreeStyle Luis 2 [place]) flash glucose sensor (FreeStyle #6 ea 04/02/22 10/21/23 Luis 2 Sensor kit) fluticasone 250 mcg-salmeterol 50 1 inh inhalation BID #60 ea 04/02/22 10/27/23 mcg/dose blistr powdr for inhalation (Advair Diskus) levalbuterol tartrate 45 2 inh inhalation Q6H PRN PRN 04/02/22 10/27/23 mcg/actuation aerosol inhaler shortness of breath or wheezing #15 grams magnesium oxide 500 mg PO DAILY #90 tabs 04/02/22 10/27/23 silver sulfadiazine 1 % topical 1 applic topical BID #400 grams 04/02/22 10/27/23 cream Right prosthetic socket #1 ea 05/13/22 10/21/23 clobetasol 0.05 % topical spray 1 applic topical BID 1 week #59 mL 08/19/22 10/27/23 fluticasone propionate 50 1 spray intranasal DAILY #16 grams 12/02/22 10/27/23 mcg/actuation nasal spray,suspension (Allergy Relief (fluticasone)) blood-glucose meter,continuous #1 ea 01/25/23 10/21/23 (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) blood-glucose sensor (Dexcom G7 #3 ea 01/25/23 10/21/23 Sensor device) multivitamin with iron 1 tab PO DAILY #90 tabs 02/14/23 10/27/23 aspirin 81 mg tablet,delayed 81 mg PO DAILY #90 tabs 02/23/23 10/27/23 release atorvastatin 10 mg tablet 10 mg PO DAILY #90 tabs 02/23/23 10/27/23 carvedilol 12.5 mg tablet 12.5 mg PO BID #180 tabs 02/23/23 10/27/23 cetirizine 10 mg tablet 10 mg PO DAILY #90 tabs 02/23/23 10/27/23 cholecalciferol (vitamin D3) 25 25 mcg PO DAILY #90 caps 02/23/23 10/27/23 mcg (1,000 unit) capsule cyanocobalamin (vitamin B-12) 1,000 mcg PO DAILY #90 caps 02/23/23 10/27/23 1,000 mcg capsule glucometer WITH MATCHING TEST #1 ea 03/10/23 10/21/23 STRIPS lancets #300 ea 03/10/23 10/21/23 blood sugar diagnostic (Contour #100 ea 03/18/23 10/21/23 Test Strips) pantoprazole 40 mg tablet,delayed 40 mg PO DAILY #90 tabs 05/22/23 10/27/23 release clopidogrel 75 mg tablet 75 mg PO DAILY #30 tabs 06/17/23 10/27/23 spironolactone 50 mg tablet 50 mg PO DAILY #90 tabs 06/18/23 10/27/23 guaifenesin 600 mg tablet, 600 mg PO BID #20 tabs 06/24/23 10/27/23 extended release 12 hr ferrous sulfate 325 mg (65 mg 325 mg PO DAILY 08/01/23 10/27/23 iron) tablet ascorbic acid (vitamin C) 1,000 mg 500 mg (1/2 x 1,000 mg) PO DAILY 08/09/23 10/27/23 tablet #90 tabs dapagliflozin propanediol 5 mg See Rx Instructions .Route 08/09/23 10/27/23 tablet (Farxiga) .COMPLEX #28 tabs insulin lispro 100 unit/mL 1 sliding scale dose subcut 09/18/23 10/27/23 subcutaneous pen (Humalog KwikPen USEASDIRECTD DM, E11.8 .. to jeep (U-100) Insulin) A1C < 7.5 #15 mL tiotropium bromide 2.5 See Rx Instructions .Route 10/10/23 10/27/23 mcg/actuation mist for inhalation .COMPLEX #4 grams (Spiriva Respimat) semaglutide 0.25 mg or 0.5 mg (2 0.5 mg (0.736 mL) subcut QWEEK #3 10/12/23 10/27/23 mg/3 mL) subcutaneous pen injector mL (Ozempic) Sleeve, Left BKA #1 ea 10/15/23 10/21/23 Sleeve, Right BKA #1 ea 10/15/23 10/21/23 insulin glargine 100 unit/mL (3 35 unit (0.35 mL) subcut QPM #35 mL 10/20/23 10/27/23 mL) subcutaneous pen (Lantus Solostar U-100 Insulin) pen needle, diabetic 31 gauge x #300 ea 10/20/23 10/21/23/16 (BD Ultra-Fine Mini Pen Needle) torsemide 20 mg tablet 100 mg PO DAILY 10/21/23 10/27/23 torsemide 20 mg tablet See Rx Instructions PO DAILY PRN 10/21/23 10/27/23 acute edema, abd swelling, dyspnea (MAY NEED LABS) #100 tabs Previous Rx's Medication Instructions Recorded Amputation Compression Sleeve #1 ea 01/26/21 fore arm cuff crutches #1 ea 06/07/21 nicotine (polacrilex) 2 mg buccal 2 mg buccal Q6H PRN nicotine 06/16/21 lozenge (Nicorette) cravings #108 ea cyclobenzaprine 10 mg tablet 10 mg PO BID PRN muscle spasm #30 09/04/21 tabs diazepam 5 mg tablet (Valium) 5 mg PO QHS PRN sleep #7 tabs 09/04/21 Left Outer Sleeve #1 ea 12/07/21 mupirocin 2 % topical ointment 1 applic topical BID-TID #15 grams 03/05/22 acetaminophen 325 mg tablet 650 mg (2 x 325 mg) PO Q4H PRN 04/02/22 fever or pain #180 tabs azelastine 137 mcg (0.1 %) nasal See Rx Instructions intranasal BID 04/02/22 spray aerosol #30 mL dupilumab 200 mg/1.14 mL 200 mg (1.14 mL) subcut Q2W #2.28 04/02/22 subcutaneous syringe (Dupixent) mL flash glucose scanning reader #1 ea 04/02/22 (FreeStyle Luis 2 [place]) flash glucose sensor (FreeStyle #6 ea 04/02/22 Luis 2 Sensor kit) fluticasone 250 mcg-salmeterol 50 1 inh inhalation BID #60 ea 04/02/22 mcg/dose blistr powdr for inhalation (Advair Diskus) levalbuterol tartrate 45 2 inh inhalation Q6H PRN PRN 04/02/22 mcg/actuation aerosol inhaler shortness of breath or wheezing #15 grams magnesium oxide 500 mg PO DAILY #90 tabs 04/02/22 silver sulfadiazine 1 % topical 1 applic topical BID #400 grams 04/02/22 cream Right prosthetic socket #1 ea 05/13/22 clobetasol 0.05 % topical spray 1 applic topical BID 1 week #59 mL 08/19/22 fluticasone propionate 50 1 spray intranasal DAILY #16 grams 12/02/22 mcg/actuation nasal spray,suspension (Allergy Relief (fluticasone)) blood-glucose meter,continuous #1 ea 01/25/23 (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) blood-glucose sensor (Dexcom G7 #3 ea 01/25/23 Sensor device) multivitamin with iron 1 tab PO DAILY #90 tabs 02/14/23 aspirin 81 mg tablet,delayed 81 mg PO DAILY #90 tabs 02/23/23 release atorvastatin 10 mg tablet 10 mg PO DAILY #90 tabs 02/23/23 carvedilol 12.5 mg tablet 12.5 mg PO BID #180 tabs 02/23/23 cetirizine 10 mg tablet 10 mg PO DAILY #90 tabs 02/23/23 cholecalciferol (vitamin D3) 25 25 mcg PO DAILY #90 caps 02/23/23 mcg (1,000 unit) capsule cyanocobalamin (vitamin B-12) 1,000 mcg PO DAILY #90 caps 02/23/23 1,000 mcg capsule glucometer WITH MATCHING TEST #1 ea 03/10/23 STRIPS lancets #300 ea 03/10/23 blood sugar diagnostic (Contour #100 ea 03/18/23 Test Strips) pantoprazole 40 mg tablet,delayed 40 mg PO DAILY #90 tabs 05/22/23 release clopidogrel 75 mg tablet 75 mg PO DAILY #30 tabs 06/17/23 spironolactone 50 mg tablet 50 mg PO DAILY #90 tabs 06/18/23 guaifenesin 600 mg tablet, 600 mg PO BID #20 tabs 06/24/23 extended release 12 hr ascorbic acid (vitamin C) 1,000 mg 500 mg (1/2 x 1,000 mg) PO DAILY 08/09/23 tablet #90 tabs dapagliflozin propanediol 5 mg See Rx Instructions .Route 08/09/23 tablet (Farxiga) .COMPLEX #28 tabs insulin lispro 100 unit/mL 1 sliding scale dose subcut 09/18/23 subcutaneous pen (Humalog EileenPen USEASDIRECTD DM, E11.8 .. to jeep (U-100) Insulin) A1C < 7.5 #15 mL tiotropium bromide 2.5 See Rx Instructions .Route 10/10/23 mcg/actuation mist for inhalation .COMPLEX #4 grams (Spiriva Respimat) semaglutide 0.25 mg or 0.5 mg (2 0.5 mg (0.736 mL) subcut QWEEK #3 10/12/23 mg/3 mL) subcutaneous pen injector mL (Ozempic) Sleeve, Left BKA #1 ea 10/15/23 Sleeve, Right BKA #1 ea 10/15/23 insulin glargine 100 unit/mL (3 35 unit (0.35 mL) subcut QPM #35 mL 10/20/23 mL) subcutaneous pen (Lantus Solostar U-100 Insulin) pen needle, diabetic 31 gauge x #300 ea 10/20/23 3/16 (BD Ultra-Fine Mini Pen Needle) torsemide 20 mg tablet See Rx Instructions PO DAILY PRN 10/21/23 acute edema, abd swelling, dyspnea (MAY NEED LABS) #100 tabs Allergies Allergy/AdvReac Type Severity Reaction Status Date / Time tramadol AdvReac Severe renal Verified 10/27/23 11:26 failure insulin aspart AdvReac Mild HypOglycemi Verified 10/27/23 11:26 a Poor Renal Function AdvReac Unknown renal Uncoded 10/27/23 11:26 failure General Stated Complaint: SOB RAMON: 3 Exam Narrative Exam Narrative: Review of Systems: All systems reviewed & are unremarkable except as noted in HPI and below Obese, difficulty with complete sentences NCAT PERRL, normal conjunctiva RRR, no murmur Decreased breath sounds, crackles at bilateral bases, no hypoxia, mild tachypnea, difficulty completing sentences distended abdomen with edema Bilateral lower extremities BKA, edematous to palpation No rashes or lesions. no focal neurologic deficits Appropriate mood and affect Course Vital Signs Vital signs: Vital Signs Temperature 36.4 C L 10/27/23 11:29 Pulse 94 H 10/27/23 11:29 Respiratory Rate 20 10/27/23 11:29 Blood Pressure 190/130 H 10/27/23 11:29 Pulse Oximetry 94 10/27/23 11:29 Temperature 36.4 C L 10/27/23 11:29 Temperature Source Temporal Artery Scan 10/27/23 11:29 Pulse 94 H 10/27/23 11:29 Respiratory Rate 22 10/27/23 12:06 Respiratory Effort Short of Breath 10/27/23 12:06 Respiratory Depth Normal 10/27/23 12:06 Respiratory Pattern Normal 10/27/23 12:06 Blood Pressure 190/130 H 10/27/23 11:29 Blood Pressure Position Sitting 10/27/23 11:29 Pulse Oximetry 94 10/27/23 11:29 Oxygen Delivery Method Room Air 10/27/23 11:29 Oxygen Flow Rate 0 10/27/23 11:29 Pain Level 0 10/27/23 11:29 Lab/Test Results Lab/Test Results: Laboratory Tests Range/Units 10/27/23 10/27/23 12:03 12:18 WBC Cancelled 11.42 H RBC Cancelled 4.52 Hgb Cancelled 14.4 Hct Cancelled 46.2 MCV Cancelled 102 H MCH Cancelled 31.9 MCHC Cancelled 31.2 L RDW Cancelled 15.5 H Plt Count Cancelled 155 MPV Cancelled 11.1 H Immature Gran % Cancelled 0.2 Neutrophils % Cancelled 78.0 Band Neutrophils % Cancelled Lymphocytes % Cancelled 7.7 Atypical Lymphs % Cancelled Monocytes % Cancelled 9.0 Eosinophils % Cancelled 4.6 Basophils % Cancelled 0.5 Metamyelocytes % Cancelled Myelocytes % Cancelled Promyelocytes % Cancelled Other Cells % Cancelled Nucleated RBC % Cancelled 0.0 Absolute Neutrophils Cancelled 8.91 H Absolute Lymphocytes Cancelled 0.88 L Absolute Monocytes Cancelled 1.03 H Absolute Eosinophils Cancelled 0.53 Absolute Basophils Cancelled 0.06 RBC Morphology Cancelled Polychromasia Cancelled Hypochromasia Cancelled Poikilocytosis Cancelled Basophilic Stippling Cancelled Anisocytosis Cancelled Microcytosis Cancelled Macrocytosis Cancelled Spherocytes Cancelled Tear Drop Cells Cancelled Ovalocytes Cancelled Stomatocytes Cancelled [place] Bodies Cancelled [place] Cells/Echinocytes Cancelled Acanthocytes (Spur) Cancelled Schistocytes Cancelled Sodium (136-145) mmol/L 141 Potassium (3.5-5.1) mmol/L 5.4 H Chloride (98-107) mmol/L 103 Carbon Dioxide (21.0-32.0) mmol/L 30.6 Anion Gap (3-11) mmol/L 7.4 BUN (7-18) mg/dL 83 H* Creatinine (0.70-1.30) mg/dL 3.9 H* Est GFR (CKD-EPI 2020) (mL/min/1.73m2) 17.58 Glucose (74-106) mg/dL 120 H Calcium (8.5-10.1) mg/dL 8.4 L Magnesium (1.8-2.4) mg/dL 2.5 H Total Bilirubin (0.2-1.0) mg/dL 0.4 AST (15-37) U/L 19 ALT (16-63) U/L 20 Alkaline Phosphatase (46-116) U/L 118 H Troponin I (< or =60) ng/L 307 H* NT-Pro-B Natriuret Pep (<300) pg/mL 79290 H Total Protein (6.4-8.2) g/dL 6.7 Albumin (3.4-5.0) g/dL 2.8 L Medical Decision Making Emergent evaluation of volume overload. Patient has multiple medical comorbidities contributing to this. He is on high-dose diuretic at home without significant improvement in his symptoms. He is having worsening shortness of breath, but does not have any signs of respiratory distress on initial presentation. Patient does not have any symptoms concerning for cardiogenic shock at this time. plan for lab work, chest x-ray and IV diuresis. Anticipate admission. Lab work reviewed. Mild leukocytosis at 11. No significant anemia. CMP derangement at baseline with elevated BUN and creatinine. Potassium slightly elevated, treated with IV Lasix. The patient's BNP is significantly elevated over 18,000. Patient has had significantly higher levels. His troponin is also elevated at 300. I suspect this is likely troponin leak from renal disease versus CHF exacerbation and unlikely to be ACS given his lack of chest pain and no acute EKG changes. Chest x-ray reviewed there is signs of cardiomegaly and volume overload. I discussed potential dialysis with the patient. He reports that his PCP and kidney doctors have talked to him about this, but they report that it is not something he is ready to start but may be something for the future. He is seeming to respond to the IV diuretic at this time, and has no indications for emergent dialysis though would watch closely as this may be indicated in the future. Patient was given a high dose of IV Lasix and initiated diuresis in the emergency department. I discussed the patient with the hospitalist. They concurs with the need for IV diuresis. He will admit the patient for further management. Medical Records Medical records reviewed: Yes I reviewed the patient's medical records. Lab Data Lab results reviewed: Yes I reviewed the patient's lab results. ECG Data Attestation: I personally reviewed and interpreted this ECG (s) as follows: Interpretation: Sinus 94, no STEMI Quality:SDOH Health Related Social Needs: No Data to Display Critical Care Time Critical Care Time Critical Care Time: Yes Total Critical Care Time: 32 Attestation: CRITICAL CARE Upon my evaluation, this patient had a high probability of imminent or life-threatening deterioration due to volume overload, CHF exacerbation which required my direct attention, intervention, and personal management. I have personally provided 32 minutes of critical care time exclusive of time spent on separately billable procedures. Time includes review of laboratory data, radiology results, discussion with consultants, and monitoring for potential decompensation. Interventions were performed as documented above [facility] All Active Problems (Updated 10/27/23 @ 14:31 by Lauri Worley MD) Type 2 diabetes mellitus with proliferative diabetic retinopathy without macular edema, bilateral (Acute) COVID (Acute ~06/22/23) Edema (Acute) Hyperphosphatemia associated with renal failure (Acute) Decreased ambulation status (Acute) Scooter, for outside .. 4-wheel, for hill, grass & dog.. getting to basement shop and garage and acreage.. HCM and QOL .. and working for [employer]. CKD (chronic kidney disease) stage 4, GFR 15-29 ml/min (Acute) GFR @ 19-20 with elevated A1C, but @ risk of hypoglycemia.. CHANEL (acute kidney injury) (Acute) Improved with diuresis and hydration @ home, but high risk for repeat episodes CKD stage 3 secondary to diabetes (Chronic) CKDOctober 2022! 08/2019 Cr 1.74 ... Elevated in 2020 2' Inf/ABx/HyperGly .. [ ] re-check 03/2021! Hypertension associated with diabetes (Acute) Persistent proteinuria associated with type 2 diabetes mellitus (Acute) Hyperglycemia due to diabetes mellitus (Acute) Diabetes mellitus with complication in adult patient (Chronic) Type 2 diabetes mellitus with diabetic polyneuropathy (Acute) Iron deficiency (Acute) History of anemia (Chronic) Coronary artery disease (Chronic) w/ dilated cardiomyopathy and (+) stress test ++> PCI/Stenting, 12/29/21 Ischemic cardiomyopathy (Acute) w/ (+) stress test and PCI/Stenting, 12/29/21 ICD (implantable cardioverter-defibrillator) in place (Acute) ICD, single lead, [employer] Visia 04/27/2018 [place], [place] CHF exacerbation (Acute) NYHA Class IV (12/29/21) [facility] Elevated brain natriuretic peptide (BNP) level (Acute) thought to be near baseline, but unclear Hx Low serum albumin (Chronic) Protein WNL per 02/2022 labs Chronic systolic CHF (congestive heart failure) (Acute) EF 20-25% per Jul 2023 Echo ([facility]) Pulmonary hypertension (Acute) 12/29/21. [id number]. Noted during Cardiac cath, [facility]. NYHA Class IV Dermatitis, unspecified (Acute ~11/2021) 12/07/21 Dermatology Chronic posttraumatic stress disorder (Acute) History of posttraumatic stress disorder (PTSD) (Acute) Long Hx, Restarted with counselor, Madison Harris. 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 Rt, November 2020. Lft, 2018 (?) GERD (gastroesophageal reflux disease) (Chronic) PPI COPD (chronic obstructive pulmonary disease) (Chronic) Hx smoker (~10pkyr), PFTs (04/17/21). Disability examination (Acute) PFTs, 04/2021 for Disability 2' COPD. Housing or economic problem (Acute) Nasal polyp (Acute) Pt report based on past ENT 06/02/[address] Haque - surgical correction planned Allergic rhinitis due to allergen (Acute) Nasal turbinate hypertrophy (Acute) Other chronic sinusitis (Acute) Deviated nasal septum (Acute) Seasonal allergies (Acute) Corneal opacification (Acute) OS Proliferative retinopathy of both eyes (Acute) Full PRP OD Vitamin D deficiency (Acute) Secondary hyperparathyroidism (Acute) Medical History SARS-CoV-2 positive (~04/14/22) Dehydration Hypercalcemia (~02/21/22) Elevated troponin Positive cardiac stress test 2021 .. Cath, with stent placement + 12/29/21. Edema of abdomen Neck pain acute .. due to sleeping on sofa?? coughing? Decreased range of motion (ROM) of right knee Flexion ok; Extension is difficult .. Continues to work with PT Psoriasis Carpal tunnel syndrome of left wrist Cubital bursitis of right elbow Diabetic foot ulcer associated with type 2 diabetes mellitus RESOLVED with amputation. 09/30/20-R heel w/cellulitis-Dr Kevin,DPM 10/16/20 Debridement by Podiatry 10/30/20 [facility] [place] Vascular - RIGHT Heel Ulcer - cont close wound care by Podiatry Hx: recurrent pneumonia walking pneumonia most x 3 years Cervical neuropathy Tendonitis of long head of biceps brachii of right shoulder Bursitis of right shoulder Right shoulder pain Acute on chronic issue: now with elbow and hand pain (ulnar), with tingling. Finger pain, left Could this be gout? No injury. Trial Naproxen. Nasal polyps Erectile dysfunction Testicular cancer Surgical History S/P cardiac catheterization 12/29/21 [facility] (Dr. Jerry Ramírez). PCI (via R radial artery) of mid-LAD. Balloon angioplasty and lithotripsy. 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 History of amputation of left lower extremity History of amputation of great toe Right History of cardiac defibrillator placement History of cataract removal with insertion of prosthetic lens (~03/02/18) Right History of gastric bypass (~07/01/14) History of cystoscopy (~12/25/13) History of tonsillectomy (~1979) History of orchiectomy, unilateral (~06/1999) Right Family History Mother Diabetes Father Diabetes Heart disease Hypertension Sister Diabetes Brother Diabetes Brother Diabetes Heart disease Hypertension Social History Smoking/Tobacco Use Status: Former Tobacco Use Quit Date: 07/18/98 Tobacco: How many years used: 10 Smoking risk assessment performed?: Yes Alcohol Intake: current Alcohol Intake frequency: 0-2 drinks per day Alcohol type: hard liquor Drug use: Never Substance use type: does not use Adopted: No Caregiver/Support person: No Foster care: No Household members: significant other Housing: house Do you need help understanding health information?: Rarely current occupation: Unemployed Sexually active: Yes Do you think of yourself as: straight/heterosexual Current gender identity: male Do you feel safe at home: Yes (getting out of relationship) Do you feel safe in your relationship?: Yes Additional Social history: moving out
--- NOTE | 2023-10-27 14:59 | W.PC.ACHO ---
Registration Status: REG ER Primary Language: Preferred Language: ED Information & Data Chief Complaint SOB 10/27/23 14:31 Triage Note pt sent by [facility] for fluid 10/27/23 11:29 overload, SOB increasing, cool on arrival, HTN. Medical / Surgical History (Last Reviewed 10/27/23 @ 14:24 by Lauri Worley MD) SARS-CoV-2 positive (~04/14/22) Dehydration Hypercalcemia (~02/21/22) Elevated troponin Positive cardiac stress test Edema of abdomen Neck pain Decreased range of motion (ROM) of right knee Psoriasis Carpal tunnel syndrome of left wrist Cubital bursitis of right elbow Diabetic foot ulcer associated with type 2 diabetes mellitus Hx: recurrent pneumonia Cervical neuropathy Tendonitis of long head of biceps brachii of right shoulder Bursitis of right shoulder Right shoulder pain Finger pain, left Nasal polyps Erectile dysfunction Testicular cancer (Last Reviewed 10/27/23 @ 14:24 by Lauri Worley MD) S/P cardiac catheterization Hx of right BKA History of amputation of left lower extremity History of amputation of great toe History of cardiac defibrillator placement History of cataract removal with insertion of prosthetic lens (~03/02/18) History of gastric bypass (~07/01/14) History of cystoscopy (~12/25/13) History of tonsillectomy (~1979) History of orchiectomy, unilateral (~06/1999) Most Recent Vital Signs Temperature 36.4 C L 10/27/23 11:29 Temperature Source Temporal Artery Scan 10/27/23 11:29 Pulse 94 H 10/27/23 11:29 Respiratory Rate 22 10/27/23 12:06 Respiratory Effort Short of Breath 10/27/23 12:06 Respiratory Depth Normal 10/27/23 12:06 Respiratory Pattern Normal 10/27/23 12:06 Blood Pressure 190/130 H 10/27/23 11:29 Blood Pressure Position Sitting 10/27/23 11:29 Pulse Oximetry 94 10/27/23 11:29 Oxygen Delivery Method Room Air 10/27/23 11:29 Oxygen Flow Rate 0 10/27/23 11:29 Pain Level 0 10/27/23 11:29 Allergies tramadol Adverse Reaction (Severe, Verified 10/27/23 11:26) renal failure CrCl <30 mL/minute: Immediate release: Increase dosing interval to every 12 hours; maximum: 200 mg/day. ER formulation should be avoided. insulin aspart Adverse Reaction (Mild, Verified 10/27/23 11:26) HypOglycemia Highly sensitive to fast-acting insulin; canNOT use typical RISS. Poor Renal Function Adverse Reaction (Unknown, Uncoded 10/27/23 11:26) renal failure Baseline GFR < 30! .. with CHANEL GFR @ 20 (2-09/2022), ik Precautions Isolation Standard precaution 10/27/23 11:30 IV IV Catheter Type [Right Saline Lock Forearm] IV Catheter Gauge [Right 20 Forearm] Diagnostics 10/27/23 10/27/23 10/27/23 Range/Units 14:54 12:18 12:03 WBC 11.42 H Cancelled RBC 4.52 Cancelled Hgb 14.4 Cancelled Hct 46.2 Cancelled MCV 102 H Cancelled MCH 31.9 Cancelled MCHC 31.2 L Cancelled RDW 15.5 H Cancelled Plt Count 155 Cancelled MPV 11.1 H Cancelled Immature Gran % 0.2 Cancelled Neutrophils % 78.0 Cancelled Band Neutrophils % Cancelled Lymphocytes % 7.7 Cancelled Atypical Lymphs % Cancelled Monocytes % 9.0 Cancelled Eosinophils % 4.6 Cancelled Basophils % 0.5 Cancelled Metamyelocytes % Cancelled Myelocytes % Cancelled Promyelocytes % Cancelled Other Cells % Cancelled Nucleated RBC % 0.0 Cancelled Absolute Neutrophils 8.91 H Cancelled Absolute Lymphocytes 0.88 L Cancelled Absolute Monocytes 1.03 H Cancelled Absolute Eosinophils 0.53 Cancelled Absolute Basophils 0.06 Cancelled RBC Morphology Cancelled Polychromasia Cancelled Hypochromasia Cancelled Poikilocytosis Cancelled Basophilic Stippling Cancelled Anisocytosis Cancelled Microcytosis Cancelled Macrocytosis Cancelled Spherocytes Cancelled Tear Drop Cells Cancelled Ovalocytes Cancelled Stomatocytes Cancelled [place] Bodies Cancelled [place] Cells/Echinocytes Cancelled Acanthocytes (Spur) Cancelled Schistocytes Cancelled Sodium 141 (136-145) mmol/L Potassium 5.4 H (3.5-5.1) mmol/L Chloride 103 (98-107) mmol/L Carbon Dioxide 30.6 (21.0-32.0) mmol/L Anion Gap 7.4 (3-11) mmol/L BUN 83 H* (7-18) mg/dL Creatinine 3.9 H* (0.70-1.30) mg/dL Est GFR (CKD-EPI 2020) 17.58 (mL/min/1.73m2) Glucose 120 H (74-106) mg/dL Calcium 8.4 L (8.5-10.1) mg/dL Magnesium 2.5 H (1.8-2.4) mg/dL Total Bilirubin 0.4 (0.2-1.0) mg/dL AST 19 (15-37) U/L ALT 20 (16-63) U/L Alkaline Phosphatase 118 H (46-116) U/L Troponin I Pending 307 H* (< or =60) ng/L NT-Pro-B Natriuret Pep 44303 H (<300) pg/mL Total Protein 6.7 (6.4-8.2) g/dL Albumin 2.8 L (3.4-5.0) g/dL Intake and Output - 24 Hour Total 10/27/23 11:18 thru 10/27/23 11:29 Weight 149.685 kg Falls Risk Assessment History of Falls Previous History 10/27/23 12:06 Contributing Factors Impairments 10/27/23 12:06 Ambulatory Aids Uses ambulatory device 10/27/23 12:06 Tubes/Lines None 10/27/23 12:06 Gait Evaluation No gait disturbance 10/27/23 12:06 Fall Total Score 33 10/27/23 12:06 Level of Risk Moderate Risk 10/27/23 12:06 Problems (Last Reviewed 10/27/23 @ 14:24 by Lauri Worley MD) CKD (chronic kidney disease) stage 4, GFR 15-29 ml/min (Acute) Ischemic cardiomyopathy (Acute) CHF exacerbation (Acute) Chronic systolic CHF (congestive heart failure) (Acute) v v v v v v v v v Sending and/or Receiving Nurses: Please use comment section below to note any information pertinent to the patient hand-off not included above. Information / Comments: Report received from: [facility]
--- NOTE | 2023-10-27 15:57 | HPE_ITS ---
Date of service: 10/27/23 Time of Service: 15:58 Assessment and Plan Assessment and plan (1) Acute on chronic systolic heart failure: Status: Resolved Assessment and plan: Continue high-dose Lasix IV push along with Diuril, will add indapamide to his regimen in the morning. When he is ready to come off IV Lasix I will adjust his torsemide (2) Ischemic cardiomyopathy: Status: Acute Assessment and plan: Will trend his troponins however he is asymptomatic for any chest pain although his dyspnea and CHF exacerbation could be an ischemic equivalent. He has had similar troponin elevations during CHF exacerbations in the past and he does have chronic kidney disease which can give a false elevation of his troponin. Consider repeating his echocardiogram in the morning to evaluate for any new wall motion abnormalities. (3) Coronary artery disease: Status: Chronic Qualifiers: Coronary Disease-Associated Artery/Lesion type: [place] artery [place] vs. transplanted heart: [place] heart Associated angina: without angina Qualified Code(s): I25.10 - Atherosclerotic heart disease of [place] coronary artery without angina pectoris (4) Type 2 diabetes mellitus with proliferative diabetic retinopathy without macular edema, bilateral: Status: Acute Assessment and plan: Continue basal bolus insulin Qualifiers: Diabetes mellitus usp insulin use: with usp use Qualified Code(s): E11.3593 - Type 2 diabetes mellitus with proliferative diabetic retinopathy without macular edema, bilateral; Z79.4 - group home (current) use of insulin (5) CKD (chronic kidney disease) stage 4, GFR 15-29 ml/min: Status: Acute (6) DVT prophylaxis: Status: Acute Assessment and plan: Will place him on heparin subcutaneously for DVT prophylaxis. History of Present Illness History of Present Illness Chief Complaint: Abdominal swelling and swelling of lower limbs Narrative: 53-year-old male with a history of ischemic cardiomyopathy, LVEF 20 to 25% with normal RV function mild to moderate MR mild TR moderate pulmonary hypertension, insulin requiring type 2 diabetes mellitus, coronary artery disease, COPD not oxygen dependent, chronic kidney disease (baseline creatinine 3.9) remote history of testicular cancer who presents emergency department today per the recommendation of his primary care provider due to progressive abdominal edema and bilateral lower extremity edema. He is a bilateral amputee and has had trouble fitting his prosthesis on due to edema of his stumps. Denies any chest pain and denies any shortness of breath. Workup in the ER included chest x-ray showing cardiomegaly mild pulmonary venous congestion. Chemistry profile showed elevated troponin of 307 with a repeat level 310, proBNP of 18,594. BUN of 83 creatinine 3.9 which is similar to his baseline, potassium 5.4 magnesium level 2.5. LFTs within normal limits.CBC showed a mildly elevated white count 11,100 normal H&H 14 g and 46%. EKG demonstrates sinus rhythm rate of [address] elevation but he has some subtle diffuse T wave inversion inferolaterally. Patient was treated with a bolus of Lasix 160 mg IV push in the ED provider Dr. Gladis Brewster requested the hospitalist service to admit him for treatment of exacerbation of his chronic HFrEF. Review of Systems All systems reviewed & are unremarkable except as noted in HPI and below Constitutional Constitutional: Reports as per HPI Cardiovascular Cardiovascular: Reports as per HPI Respiratory Respiratory: Reports as per HPI Gastrointestinal Gastrointestinal: Reports as per HPI [facility] All Active Problems (Updated 10/27/23 @ 20:43 by Darek Reynolds MD) DVT prophylaxis (Acute) Type 2 diabetes mellitus with proliferative diabetic retinopathy without macular edema, bilateral (Acute) COVID (Acute ~06/22/23) Edema (Acute) Hyperphosphatemia associated with renal failure (Acute) Decreased ambulation status (Acute) Scooter, for outside .. 4-wheel, for hill, grass & dog.. getting to basement shop and garage and acreage.. HCM and QOL .. and working for [employer]. CKD (chronic kidney disease) stage 4, GFR 15-29 ml/min (Acute) GFR @ 19-20 with elevated A1C, but @ risk of hypoglycemia.. CHANEL (acute kidney injury) (Acute) Improved with diuresis and hydration @ home, but high risk for repeat episodes CKD stage 3 secondary to diabetes (Chronic) CKDOctober 2022! 08/2019 Cr 1.74 ... Elevated in 2020 2' Inf/ABx/HyperGly .. [ ] re-check 03/2021! Hypertension associated with diabetes (Acute) Persistent proteinuria associated with type 2 diabetes mellitus (Acute) Hyperglycemia due to diabetes mellitus (Acute) Diabetes mellitus with complication in adult patient (Chronic) Type 2 diabetes mellitus with diabetic polyneuropathy (Acute) Iron deficiency (Acute) History of anemia (Chronic) Coronary artery disease (Chronic) w/ dilated cardiomyopathy and (+) stress test ++> PCI/Stenting, 12/29/21 Ischemic cardiomyopathy (Acute) w/ (+) stress test and PCI/Stenting, 12/29/21 ICD (implantable cardioverter-defibrillator) in place (Acute) ICD, single lead, [employer] Visia 04/27/2018 [place], [place] CHF exacerbation (Acute) NYHA Class IV (12/29/21) [facility] Elevated brain natriuretic peptide (BNP) level (Acute) thought to be near baseline, but unclear Hx Low serum albumin (Chronic) Protein WNL per 02/2022 labs Chronic systolic CHF (congestive heart failure) (Acute) EF 20-25% per Jul 2023 Echo ([facility]) Pulmonary hypertension (Acute) 12/29/21. [id number]. Noted during Cardiac cath, [facility]. NYHA Class IV Dermatitis, unspecified (Acute ~11/2021) 12/07/21 Dermatology Chronic posttraumatic stress disorder (Acute) History of posttraumatic stress disorder (PTSD) (Acute) Long Hx, Restarted with counselor, Madison Harris. 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 Rt, November 2020. Lft, 2017 (?) GERD (gastroesophageal reflux disease) (Chronic) PPI COPD (chronic obstructive pulmonary disease) (Chronic) Hx smoker (~10pkyr), PFTs (04/17/21). Disability examination (Acute) PFTs, 04/2021 for Disability 2' COPD. Housing or economic problem (Acute) Nasal polyp (Acute) Pt report based on past ENT 06/02/[address] Haque - surgical correction planned Allergic rhinitis due to allergen (Acute) Nasal turbinate hypertrophy (Acute) Other chronic sinusitis (Acute) Deviated nasal septum (Acute) Seasonal allergies (Acute) Corneal opacification (Acute) OS Proliferative retinopathy of both eyes (Acute) Full PRP OD Vitamin D deficiency (Acute) Secondary hyperparathyroidism (Acute) Medical History SARS-CoV-2 positive (~04/14/22) Dehydration Hypercalcemia (~02/21/22) Elevated troponin Positive cardiac stress test 2021 .. Cath, with stent placement + 12/29/21. Edema of abdomen Neck pain acute .. due to sleeping on sofa?? coughing? Decreased range of motion (ROM) of right knee Flexion ok; Extension is difficult .. Continues to work with PT Psoriasis Carpal tunnel syndrome of left wrist Cubital bursitis of right elbow Diabetic foot ulcer associated with type 2 diabetes mellitus RESOLVED with amputation. 09/30/20-R heel w/cellulitis-Dr Kevin,DPM 10/16/20 Debridement by Podiatry 10/30/20 [facility] - RIGHT Heel Ulcer - cont close wound care by Podiatry Hx: recurrent pneumonia walking pneumonia most vines x 3 years Cervical neuropathy Tendonitis of long head of biceps brachii of right shoulder Bursitis of right shoulder Right shoulder pain Acute on chronic issue: now with elbow and hand pain (ulnar), with tingling. Finger pain, left Could this be gout? No injury. Trial Naproxen. Nasal polyps Erectile dysfunction Testicular cancer Surgical History S/P cardiac catheterization 12/29/21 [facility] (Dr. Jerry Ramírez). PCI (via R radial artery) of mid-LAD. Balloon angioplasty and lithotripsy. 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 History of amputation of left lower extremity History of amputation of great toe Right History of cardiac defibrillator placement History of cataract removal with insertion of prosthetic lens (~03/02/18) Right History of gastric bypass (~07/01/14) History of cystoscopy (~12/25/13) History of tonsillectomy (~1979) History of orchiectomy, unilateral (~06/1999) Right Family History Mother Diabetes Father Diabetes Heart disease Hypertension Sister Diabetes Brother Diabetes Brother Diabetes Heart disease Hypertension Social History Smoking/Tobacco Use Status: Former Tobacco Use Quit Date: 07/18/98 Tobacco: How many years used: 10 Smoking risk assessment performed?: Yes Alcohol Intake: current Alcohol Intake frequency: 0-2 drinks per day Alcohol type: hard liquor Drug use: Never Substance use type: does not use Adopted: No Caregiver/Support person: No Foster care: No Household members: significant other Housing: house Do you need help understanding health information?: Rarely current occupation: Unemployed Sexually active: Yes Do you think of yourself as: straight/heterosexual Current gender identity: male Do you feel safe at home: Yes (getting out of relationship) Do you feel safe in your relationship?: Yes Additional Social history: moving out Meds Allergies and Home Medications Allergies Allergy/AdvReac Type Severity Reaction Status Date / Time tramadol AdvReac Severe renal Verified 10/27/23 11:26 failure insulin aspart AdvReac Mild HypOglycemi Verified 10/27/23 11:26 a Poor Renal Function AdvReac Unknown renal Uncoded 10/27/23 11:26 failure Home Medications Medication Instructions Recorded Confirmed Type Amputation Compression Sleeve #1 ea 01/26/21 10/21/23 Rx fore arm cuff crutches #1 ea 06/07/21 10/21/23 Rx nicotine (polacrilex) 2 mg buccal 2 mg buccal Q6H PRN nicotine 06/16/21 10/27/23 Rx lozenge (Nicorette) cravings #108 ea cyclobenzaprine 10 mg tablet 10 mg PO BID PRN muscle spasm #30 09/04/21 10/27/23 Rx tabs diazepam 5 mg tablet (Valium) 5 mg PO QHS PRN sleep #7 tabs 09/04/21 10/27/23 Rx Left Outer Sleeve #1 ea 12/07/21 10/21/23 Rx halobetasol propionate 0.05 % 1 applic topical DAILY PRN 12/15/21 10/27/23 History topical cream pseudoephedrine HCl 120 mg 120 mg PO Q12H PRN nasal congestion 01/01/22 10/27/23 History tablet,extended release (Nasal Decongestant (pseudoephedrine)) mupirocin 2 % topical ointment 1 applic topical BID-TID #15 grams 03/05/22 10/27/23 Rx acetaminophen 325 mg tablet 650 mg (2 x 325 mg) PO Q4H PRN 04/02/22 10/27/23 Rx fever or pain #180 tabs azelastine 137 mcg (0.1 %) nasal See Rx Instructions intranasal BID 04/02/22 10/27/23 Rx spray aerosol #30 mL dupilumab 200 mg/1.14 mL 200 mg (1.14 mL) subcut Q2W #2.28 04/02/22 10/27/23 Rx subcutaneous syringe ([employer]less [employer]) mL flash glucose scanning reader #1 ea 04/02/22 10/21/23 Rx (FreeStyle Luis 2 [place]) flash glucose sensor (FreeStyle #6 ea 04/02/22 10/21/23 Rx Luis 2 Sensor kit) fluticasone 250 mcg-salmeterol 50 1 inh inhalation BID #60 ea 04/02/22 10/27/23 Rx mcg/dose blistr powdr for inhalation (Advair Diskus) levalbuterol tartrate 45 2 inh inhalation Q6H PRN PRN 04/02/22 10/27/23 Rx mcg/actuation aerosol inhaler shortness of breath or wheezing #15 grams magnesium oxide 500 mg PO DAILY #90 tabs 04/02/22 10/27/23 Rx silver sulfadiazine 1 % topical 1 applic topical BID #400 grams 04/02/22 10/27/23 Rx cream Right prosthetic socket #1 ea 05/13/22 10/21/23 Rx clobetasol 0.05 % topical spray 1 applic topical BID 1 week #59 mL 08/19/22 10/27/23 Rx fluticasone propionate 50 1 spray intranasal DAILY #16 grams 12/02/22 10/27/23 Rx mcg/actuation nasal spray,suspension (Allergy Relief (fluticasone)) blood-glucose meter,continuous #1 ea 01/25/23 10/21/23 Rx (Dexcom G7 Keyseating Machine Set Up Operator) blood-glucose sensor (Dexcom G7 #3 ea 01/25/23 10/21/23 Rx Sensor device) multivitamin with iron 1 tab PO DAILY #90 tabs 02/14/23 10/27/23 Rx aspirin 81 mg tablet,delayed 81 mg PO DAILY #90 tabs 02/23/23 10/27/23 Rx release atorvastatin 10 mg tablet 10 mg PO DAILY #90 tabs 02/23/23 10/27/23 Rx carvedilol 12.5 mg tablet 12.5 mg PO BID #180 tabs 02/23/23 10/27/23 Rx cetirizine 10 mg tablet 10 mg PO DAILY #90 tabs 02/23/23 10/27/23 Rx cholecalciferol (vitamin D3) 25 25 mcg PO DAILY #90 caps 02/23/23 10/27/23 Rx mcg (1,000 unit) capsule cyanocobalamin (vitamin B-12) 1,000 mcg PO DAILY #90 caps 02/23/23 10/27/23 Rx 1,000 mcg capsule glucometer WITH MATCHING TEST #1 ea 03/10/23 10/21/23 Rx STRIPS lancets #300 ea 03/10/23 10/21/23 Rx blood sugar diagnostic (Contour #100 ea 03/18/23 10/21/23 Rx Test Strips) pantoprazole 40 mg tablet,delayed 40 mg PO DAILY #90 tabs 05/22/23 10/27/23 Rx release clopidogrel 75 mg tablet 75 mg PO DAILY #30 tabs 06/17/23 10/27/23 Rx spironolactone 50 mg tablet 50 mg PO DAILY #90 tabs 06/18/23 10/27/23 Rx guaifenesin 600 mg tablet, 600 mg PO BID #20 tabs 06/24/23 10/27/23 Rx extended release 12 hr ferrous sulfate 325 mg (65 mg 325 mg PO DAILY 08/01/23 10/27/23 History iron) tablet ascorbic acid (vitamin C) 1,000 mg 500 mg (1/2 x 1,000 mg) PO DAILY 08/09/23 10/27/23 Rx tablet #90 tabs dapagliflozin propanediol 5 mg See Rx Instructions .Route 08/09/23 10/27/23 Rx tablet (Farxiga) .COMPLEX #28 tabs insulin lispro 100 unit/mL 1 sliding scale dose subcut 09/18/23 10/27/23 Rx subcutaneous pen (Humalog KwikPen USEASDIRECTD DM, E11.8 .. to jeep (U-100) Insulin) A1C < 7.5 #15 mL tiotropium bromide 2.5 See Rx Instructions .Route 10/10/23 10/27/23 Rx mcg/actuation mist for inhalation .COMPLEX #4 grams (Spiriva Respimat) semaglutide 0.25 mg or 0.5 mg (2 0.5 mg (0.736 mL) subcut QWEEK #3 10/12/23 10/27/23 Rx mg/3 mL) subcutaneous pen injector mL (Ozempic) Sleeve, Left BKA #1 ea 10/15/23 10/21/23 Rx Sleeve, Right BKA #1 ea 10/15/23 10/21/23 Rx insulin glargine 100 unit/mL (3 35 unit (0.35 mL) subcut QPM #35 mL 10/20/23 10/27/23 Rx mL) subcutaneous pen (Lantus Solostar U-100 Insulin) pen needle, diabetic 31 gauge x #300 ea 10/20/23 10/21/23 Rx 3/16 (BD Ultra-Fine Mini Pen Needle) torsemide 20 mg tablet 100 mg PO DAILY 10/21/23 10/27/23 History torsemide 20 mg tablet See Rx Instructions PO DAILY PRN 10/21/23 10/27/23 Rx acute edema, abd swelling, dyspnea (MAY NEED LABS) #100 tabs Exam Narrative Exam Narrative: Morbidly obese white male wears glasses bearded appears to be in no acute distress not tachypneic not using accessory respiratory muscles Neck is obese difficult to discern JVD has normal carotid pulses no bruits no thyromegaly Lungs are clear to auscultation anteriorly Heart is regular rate and rhythm with distant heart tones no appreciable murmur left anterior chest wall has palpable implanted device where his AICD is located Abdomen is obese slightly distended nontender did not appreciate ascites Proximal lower extremities reveals 1+ pitting edema of his thighs no apparent breakdown skin over the amputation sites. Results Labs 10/27/23 12:18 10/27/23 12:03 Labs: Laboratory Results - last 24 hr 10/27/23 10/27/23 12:03 12:18 WBC Cancelled 11.42 H RBC Cancelled 4.52 Hgb Cancelled 14.4 Hct Cancelled 46.2 MCV Cancelled 102 H MCH Cancelled 31.9 MCHC Cancelled 31.2 L RDW Cancelled 15.5 H Plt Count Cancelled 155 MPV Cancelled 11.1 H Immature Gran % Cancelled 0.2 Neutrophils % Cancelled 78.0 Band Neutrophils % Cancelled Lymphocytes % Cancelled 7.7 Atypical Lymphs % Cancelled Monocytes % Cancelled 9.0 Eosinophils % Cancelled 4.6 Basophils % Cancelled 0.5 Metamyelocytes % Cancelled Myelocytes % Cancelled Promyelocytes % Cancelled Other Cells % Cancelled Nucleated RBC % Cancelled 0.0 Absolute Neutrophils Cancelled 8.91 H Absolute Lymphocytes Cancelled 0.88 L Absolute Monocytes Cancelled 1.03 H Absolute Eosinophils Cancelled 0.53 Absolute Basophils Cancelled 0.06 RBC Morphology Cancelled Polychromasia Cancelled Hypochromasia Cancelled Poikilocytosis Cancelled Basophilic Stippling Cancelled Anisocytosis Cancelled Microcytosis Cancelled Macrocytosis Cancelled Spherocytes Cancelled Tear Drop Cells Cancelled Ovalocytes Cancelled Stomatocytes Cancelled [place] Bodies Cancelled [place] Cells/Echinocytes Cancelled Acanthocytes (Spur) Cancelled Schistocytes Cancelled Sodium 141 Potassium 5.4 H Chloride 103 Carbon Dioxide 30.6 Anion Gap 7.4 BUN 83 H* Creatinine 3.9 H* Est GFR (CKD-EPI 2020) 17.58 Glucose 120 H Calcium 8.4 L Magnesium 2.5 H Total Bilirubin 0.4 AST 19 ALT 20 Alkaline Phosphatase 118 H Troponin I 307 H* NT-Pro-B Natriuret Pep 38323 H Total Protein 6.7 Albumin 2.8 L Last Vital Signs Temp 36.4 C L 10/27/23 11:29 Pulse 94 H 10/27/23 11:29 Resp 22 10/27/23 12:06 BP 190/130 H 10/27/23 11:29 Pulse Ox 94 10/27/23 11:29 Time Spent Time spent with Patient: 55-74 minutes Time was spent: preparing to see the patient(eg.review tests), obtaining and/or reviewing separately otained hiistory, ordering medications,tests, procedures, referring, communicating with other health transitional care manager, indepentently interpreting results, counseling the patient and care coordination
[2023-10-27 15:58] LABS: Troponin I 310 ng/L (< or =60)
[2023-10-27] MEDS: Insulin Glargine 300 UNITS/3 ML PEN 35 UNITS SC (20:18)
[2023-10-27] MEDS: Normal Saline Flush 10 ML SYR IVP (20:22)
[2023-10-27] MEDS: Heparin 5,000 UNITS/ML VIAL 5000 UNITS SC (20:22)
[2023-10-27] MEDS: Carvedilol 12.5 MG TAB PO (20:23)
[2023-10-27] MEDS: Budesonide/Formoterol 160/4.5 6 GM 60 PUFF INH IH (20:23)
[2023-10-27] MEDS: guaiFENesin 600 MG TABCR PO (20:24)
[2023-10-27 20:40] LABS: Troponin I 294 ng/L (< or =60)
[2023-10-27] MEDS: Miconazole 2% Topical Powder 85 GM BTL (21:15)
[2023-10-27] MEDS: Lidocaine 2% Jelly 6 ML SYR (22:48)
[2023-10-28] VITALS (115 sets, daily range): BP systolic 110–138; BP diastolic 79–102; PULSE 84–96; RESP 11–27; TEMP 36–37.1; O2SAT 60–95
[2023-10-28] MEDS: Heparin 5,000 UNITS/ML VIAL 5000 UNITS SC ×3 (04:19→21:24)
[2023-10-28 07:04] LABS: Abs Immature Grans 0.04 10^3/uL (0.0-0.06); Absolute Basophil Count 0.04 10^3/uL (0.0-0.2); Absolute Eosinophil Count 0.53 10^3/uL (0.0-0.7); Absolute Lymphocyte Count 0.86 10^3/uL (1.2-3.4); Absolute Neutrophil Count 7.89 10^3/uL (1.2-6.7); Basophils % 0.4; Eosinophils % 5.1; HCT 46.9 % (40.0-50.0); HGB 14.6 g/dL (13.5-17.5); Immature Grans % 0.4; Lymphocytes % 8.2; MCH 31.7 pg (27.0-33.0); MCHC 31.1 % (32.0-36.0); MCV 102 fL (80-95); MPV 10.9 fL (8.0-11.0); Monocytes % 10.5; Neutrophils % 75.4; Platelet Count 166 10^3/uL (130-400); RBC 4.61 10^6/uL (4.36-5.78); RDW 15.4 % (11.8-14.1); WBC 10.46 10^3/uL (4.4-10.8)
[2023-10-28 07:16] LABS: Magnesium 2.6 mg/dL (1.8-2.4)
[2023-10-28 07:25] LABS: ALT 15 U/L (16-63); AST 10 U/L (15-37); Albumin 2.7 g/dL (3.4-5.0); Alkaline Phosphatase 112 U/L (46-116); Bilirubin, Total 0.6 mg/dL (0.2-1.0); Calcium 8.7 mg/dL (8.5-10.1); Calculated LDL 50 mg/dL (<100); Chloride 103 mmol/L (98-107); Cholesterol 106 mg/dL (<200); Estimated GFR 17.05 (mL/min/1.73m2); Glucose 59 mg/dL (74-106); HDL Cholesterol 50 mg/dL (40-60); Potassium 4.6 mmol/L (3.5-5.1); Sodium 144 mmol/L (136-145); Total Protein 6.5 g/dL (6.4-8.2); Triglyceride 30 mg/dL (<150)
[2023-10-28 07:38] LABS: BUN 89 mg/dL (7-18)
[2023-10-28 07:39] LABS: Troponin I 312 ng/L (< or =60)
[2023-10-28] MEDS: Budesonide/Formoterol 160/4.5 6 GM 60 PUFF INH IH ×2 (08:00→20:04)
[2023-10-28] MEDS: Tiotropium Bromide-Respimat 10 PUFF INH IH (08:00)
--- NOTE | 2023-10-28 09:12 | PDOC.CMIN ---
Date of service: 10/28/23 Time of Service: 09:12 Care Management Initial Assmt Initial Assessment REASON FOR HOSPITALIZATION:: CHF PREVIOUS FUNCTIONAL STATUS/SOCIAL/FAMILY SUPPORTS:: Leroy lives in a single family home in [place], [place] with his friend. He does not have any children or other relatives in the area. 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 He has a wheelchair, walker, shower stool, crutches and prosthetics for both lower extremities. Maverick does not drive at this time and uses [facility] for transportation. He is independent with ADLs and IADLs and does not receive any community services CURRENT FUNCTIONAL STATUS:: Leroy was sitting up in bed when CM met with him. He admitted to being frustrated at the time. He had been trying to reach [facility] in Analysis Or Research Safety Inspector but was unsuccessful. He was told that a message would be given to Javier. Leroy explained to CM that he is currently trying to find other housing. He will need subsidized housing that is handicapped accessible. Leroy shared that he is 10th on one list and 60th on another. ADVANCE DIRECTIVES:: does not have Has patient been provided with info about the portal/API?: Yes Did the patient sign up for the portal?: Yes CODE STATUS:: Full Code INSURANCE COVERAGE / FINANCIAL ISSUES:: /[facility] CURRENT HOME/COMMUNITY SERVICES/EQUIPMENT:: [facility] van. Wheel Chair, has prosthetic LE. [facility] [employer] Laborer: Mara Laboy. Community Connections: Sobeida Neville. 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 Higher Ability: Jody Rodriguez PRIMARY CARE PHYSICIAN:: Candice Perez POTENTIAL DISCHARGE NEEDS:: follow up with PCP and plan of care PATIENT/FAMILY EDUCATION NEEDS:: Review of discharge instructions, activity, limitations, follow up plan, discuss Ask Me Three TRANSPORTATION:: via [facility] coordinated by CM PLAN:: Anticipate Leroy will be discharged home with no new services when medically stable. He will follow up with his PCP and plan of care and transport via [facility] coordinated by CM. CM will follow and continue to assess for discharge needs. PFSH All Active Problems (Updated 10/27/23 @ 20:43 by Darek Reynolds MD) DVT prophylaxis (Acute) Type 2 diabetes mellitus with proliferative diabetic retinopathy without macular edema, bilateral (Acute) COVID (Acute ~06/22/23) Edema (Acute) Hyperphosphatemia associated with renal failure (Acute) Decreased ambulation status (Acute) Scooter, for outside .. 4-wheel, for hill, grass & dog.. getting to basement shop and garage and acreage.. HCM and QOL .. and working for [employer]. CKD (chronic kidney disease) stage 4, GFR 15-29 ml/min (Acute) GFR @ 19-20 with elevated A1C, but @ risk of hypoglycemia.. CHANEL (acute kidney injury) (Acute) Improved with diuresis and hydration @ home, but high risk for repeat episodes CKD stage 3 secondary to diabetes (Chronic) CKD4, October 2022! 08/2019 Cr 1.74 ... Elevated in 2020 2' Inf/ABx/HyperGly .. [ ] re-check 03/2021! Hypertension associated with diabetes (Acute) Persistent proteinuria associated with type 2 diabetes mellitus (Acute) Hyperglycemia due to diabetes mellitus (Acute) Diabetes mellitus with complication in adult patient (Chronic) Type 2 diabetes mellitus with diabetic polyneuropathy (Acute) Iron deficiency (Acute) History of anemia (Chronic) Coronary artery disease (Chronic) w/ dilated cardiomyopathy and (+) stress test ++> PCI/Stenting, 12/29/21 Ischemic cardiomyopathy (Acute) w/ (+) stress test and PCI/Stenting, 12/29/21 ICD (implantable cardioverter-defibrillator) in place (Acute) ICD, single lead, Medtronic Visia 04/27/2018 [place], [place] CHF exacerbation (Acute) NYHA Class IV (12/29/21) [facility] Elevated brain natriuretic peptide (BNP) level (Acute) thought to be near baseline, but unclear Hx Low serum albumin (Chronic) Protein WNL per 02/2022 labs Chronic systolic CHF (congestive heart failure) (Acute) EF 20-25% per Jul 2023 Echo ([place]) Pulmonary hypertension (Acute) 12/29/21. [id number]. Noted during Cardiac cath, [facility]. NYHA Class IV Dermatitis, unspecified (Acute ~11/2021) 12/07/21 Dermatology Chronic posttraumatic stress disorder (Acute) History of posttraumatic stress disorder (PTSD) (Acute) Long Hx, Restarted with counselor, Madison Harris. 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 Working with [email or web address] re: prosthetics.. Rt, November 2020. Lft, 2018 (?) GERD (gastroesophageal reflux disease) (Chronic) PPI COPD (chronic obstructive pulmonary disease) (Chronic) Hx smoker (~10pkyr), PFTs (04/17/21). Disability examination (Acute) PFTs, 04/2021 for Disability 2' COPD. Housing or economic problem (Acute) Nasal polyp (Acute) Pt report based on past ENT 06/02/[address] Haque - surgical correction planned Allergic rhinitis due to allergen (Acute) Nasal turbinate hypertrophy (Acute) Other chronic sinusitis (Acute) Deviated nasal septum (Acute) Seasonal allergies (Acute) Corneal opacification (Acute) OS Proliferative retinopathy of both eyes (Acute) Full PRP OD Vitamin D deficiency (Acute) Secondary hyperparathyroidism (Acute) Medical History SARS-CoV-2 positive (~04/14/22) Dehydration Hypercalcemia (~02/21/22) Elevated troponin Positive cardiac stress test 2021 .. Cath, with stent placement + 12/29/21. Edema of abdomen Neck pain acute .. due to sleeping on sofa?? coughing? Decreased range of motion (ROM) of right knee Flexion ok; Extension is difficult .. Continues to work with PT Psoriasis Carpal tunnel syndrome of left wrist Cubital bursitis of right elbow Diabetic foot ulcer associated with type 2 diabetes mellitus RESOLVED with amputation. 09/30/20-R heel w/cellulitis-Dr Kevin,DPM 10/16/20 Debridement by Podiatry 10/30/20 [facility] Vascular - RIGHT Heel Ulcer - cont close wound care by Podiatry Hx: recurrent pneumonia walking pneumonia most vines x 3 years Cervical neuropathy Tendonitis of long head of biceps brachii of right shoulder Bursitis of right shoulder Right shoulder pain Acute on chronic issue: now with elbow and hand pain (ulnar), with tingling. Finger pain, left Could this be gout? No injury. Trial Naproxen. Nasal polyps Erectile dysfunction Testicular cancer Surgical History S/P cardiac catheterization 12/29/21 [facility] (Dr. Jerry Ramírez). PCI (via R radial artery) of mid-LAD. Balloon angioplasty and lithotripsy. 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 History of amputation of left lower extremity History of amputation of great toe Right History of cardiac defibrillator placement History of cataract removal with insertion of prosthetic lens (~03/02/18) Right History of gastric bypass (~07/01/14) History of cystoscopy (~12/25/13) History of tonsillectomy (~1979) History of orchiectomy, unilateral (~06/1999) Right Family History Mother Diabetes Father Diabetes Heart disease Hypertension Sister Diabetes Brother Diabetes Brother Diabetes Heart disease Hypertension Social History Smoking/Tobacco Use Status: Former Tobacco Use Quit Date: 07/18/98 Tobacco: How many years used: 10 Smoking risk assessment performed?: Yes Alcohol Intake: current Alcohol Intake frequency: 0-2 drinks per day Alcohol type: hard liquor Drug use: Never Substance use type: does not use Adopted: No Caregiver/Support person: No Foster care: No Household members: significant other Housing: house Do you need help understanding health information?: Rarely current occupation: Unemployed Sexually active: Yes Do you think of yourself as: straight/heterosexual Current gender identity: male Do you feel safe at home: Yes (getting out of relationship) Do you feel safe in your relationship?: Yes Additional Social history: moving out SDOH(Care Management) Screening Will the Patient Participate in the Screening?: Unable to obtain Social Determinants of Health Comments(SDOH Details): does state that we don't have any problems now, Im living on my ex girlfriends couch and I am looking for a new apt
[2023-10-28] MEDS: Furosemide 100 MG/10 ML VIAL 160 MG IVP ×2 (09:37→21:19)
[2023-10-28] MEDS: Aspirin E.C. 81 MG TABEC PO (09:38)
[2023-10-28] MEDS: Multivitamin w/Minerals TAB 1 TAB PO (09:38)
[2023-10-28] MEDS: Normal Saline Flush 10 ML SYR IVP ×4 (09:38→23:46)
[2023-10-28] MEDS: guaiFENesin 600 MG TABCR PO ×2 (09:39→21:22)
[2023-10-28] MEDS: Cholecalciferol (Vitamin D3) 1,000 UNIT TAB 1000 UNITS PO (09:39)
[2023-10-28] MEDS: Cetirizine 10 MG TAB PO (09:39)
[2023-10-28] MEDS: Ascorbic Acid 500 MG TAB PO (09:39)
[2023-10-28] MEDS: Clopidogrel 75 MG TAB PO (09:39)
[2023-10-28] MEDS: Carvedilol 12.5 MG TAB PO ×2 (09:39→21:22)
[2023-10-28] MEDS: Cyanocobalamin 500 MCG TAB 1000 MCG PO (09:39)
[2023-10-28] MEDS: Atorvastatin 10 MG TAB PO (09:39)
[2023-10-28] MEDS: Ferrous Sulfate 325 MG TAB PO (09:39)
[2023-10-28] MEDS: Pantoprazole 40 MG TABCR PO (09:40)
[2023-10-28] MEDS: Fluticasone NASAL SPRAY 16 GM BTL NS (10:13)
--- NOTE | 2023-10-28 10:29 | PGE_ITS ---
Date of Service Date of service: 10/28/23 Time of Service: 10:29 Assessment and Plan Assessment and plan (1) Acute on chronic systolic heart failure: Status: Resolved Assessment and plan: continue high dose lasix, add indapamide (in lieu of diuril) and add zaroxolyn to his regimen. will transition over to his torsemide tomorrow. Critical care time spent interviewing and examining the patient, reviewing studies, discussing case with patient's nurse and consulting physicians was 30 minutes (2) Ischemic cardiomyopathy: Status: Acute Assessment and plan: troponin I have leveled at 312, no ischemic pain (3) Coronary artery disease: Status: Chronic Assessment and plan: as above, continue home meds of atorvastatin, aspirin, consider long acting nitrate Qualifiers: Associated angina: without angina Coronary Disease-Associated Artery/Lesion type: [place] artery [place] vs. 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 I decreased his glargine by 20% from 35 units to 28 units Qualifiers: Diabetes mellitus group home insulin use: with group home use Qualified Code(s): E11.3593 - Type 2 diabetes mellitus with proliferative diabetic retinopathy without macular edema, bilateral; Z79.4 - jail (current) use of insulin (5) CKD (chronic kidney disease) stage 4, GFR 15-29 ml/min: Status: Acute (6) DVT prophylaxis: Status: Acute Assessment and plan: Will place him on heparin subcutaneously for DVT prophylaxis. Subjective Subjective Interval history since last seen: Maverick denies any dyspnea or CP. This morning he had a hypoglycemic spell probably precipitated by his not eating much dinner last night out of dislike for his choices (he does not like seafood) and taking his usual dose of Lantus 35 units qpm. Because he can not take the Novolog, we have not been giving him any bolus insulins. I have ordered his home form of insulin. As for diuresis, he has put out quite a bit of urine ( he is net negative 1150 since yesterday). Exam Narrative Exam Narrative: Alert and oriented, no distress Lungs: clear Heart: RRR Abdomen: obese, soft, he feels that he is still edematous but I dont think that he has any pitting edema in his abdomen Legs: s/p BKA bilateral, stumps do not have any pitting edema, no calf tenderness or induration Objective Last Vital Signs Temp 36.4 C L 10/28/23 07:45 Pulse 89 10/28/23 08:01 Resp 17 10/28/23 08:01 BP 110/79 10/28/23 08:01 Pulse Ox 87 L 10/28/23 08:01 Laboratory Results - last 24 hr 10/27/23 10/27/23 10/27/23 12:03 12:18 15:35 WBC Cancelled 11.42 H RBC Cancelled 4.52 Hgb Cancelled 14.4 Hct Cancelled 46.2 MCV Cancelled 102 H MCH Cancelled 31.9 MCHC Cancelled 31.2 L RDW Cancelled 15.5 H Plt Count Cancelled 155 MPV Cancelled 11.1 H Immature Gran % Cancelled 0.2 Neutrophils % Cancelled 78.0 Band Neutrophils % Cancelled Lymphocytes % Cancelled 7.7 Atypical Lymphs % Cancelled Monocytes % Cancelled 9.0 Eosinophils % Cancelled 4.6 Basophils % Cancelled 0.5 Metamyelocytes % Cancelled Myelocytes % Cancelled Promyelocytes % Cancelled Other Cells % Cancelled Nucleated RBC % Cancelled 0.0 Absolute Neutrophils Cancelled 8.91 H Absolute Lymphocytes Cancelled 0.88 L Absolute Monocytes Cancelled 1.03 H Absolute Eosinophils Cancelled 0.53 Absolute Basophils Cancelled 0.06 RBC Morphology Cancelled Polychromasia Cancelled Hypochromasia Cancelled Poikilocytosis Cancelled Basophilic Stippling Cancelled Anisocytosis Cancelled Microcytosis Cancelled Macrocytosis Cancelled Spherocytes Cancelled Tear Drop Cells Cancelled Ovalocytes Cancelled Stomatocytes Cancelled [place] Bodies Cancelled Arnold Cells/Echinocytes Cancelled Acanthocytes (Spur) Cancelled Schistocytes Cancelled Sodium 141 Potassium 5.4 H Chloride 103 Carbon Dioxide 30.6 Anion Gap 7.4 BUN 83 H* Creatinine 3.9 H* Est GFR (CKD-EPI 2020) 17.58 Glucose 120 H Calcium 8.4 L Magnesium 2.5 H Total Bilirubin 0.4 AST 19 ALT 20 Alkaline Phosphatase 118 H Troponin I 307 H* 310 H* NT-Pro-B Natriuret Pep 68459 H Total Protein 6.7 Albumin 2.8 L Triglycerides Total Cholesterol LDL Cholesterol, Calc HDL Cholesterol 10/27/23 10/28/23 20:15 06:49 WBC 10.46 RBC 4.61 Hgb 14.6 Hct 46.9 MCV 102 H MCH 31.7 MCHC 31.1 L RDW 15.4 H Plt Count 166 MPV 10.9 Immature Gran % 0.4 Neutrophils % 75.4 Band Neutrophils % Lymphocytes % 8.2 Atypical Lymphs % Monocytes % 10.5 Eosinophils % 5.1 Basophils % 0.4 Metamyelocytes % Myelocytes % Promyelocytes % Other Cells % Nucleated RBC % 0.0 Absolute Neutrophils 7.89 H Absolute Lymphocytes 0.86 L Absolute Monocytes 1.10 H Absolute Eosinophils 0.53 Absolute Basophils 0.04 RBC Morphology Polychromasia Hypochromasia Poikilocytosis Basophilic Stippling Anisocytosis Microcytosis Macrocytosis Spherocytes Tear Drop Cells Ovalocytes Stomatocytes [place] Bodies Arnold Cells/Echinocytes Acanthocytes (Spur) Schistocytes Sodium 144 Potassium 4.6 Chloride 103 Carbon Dioxide 32.0 Anion Gap 9.0 BUN 89 H* Creatinine 4.0 H* Est GFR (CKD-EPI 2020) 17.05 Glucose 59 L Calcium 8.7 Magnesium 2.6 H Total Bilirubin 0.6 AST 10 L ALT 15 L Alkaline Phosphatase 112 Troponin I 294 H* 312 H* NT-Pro-B Natriuret Pep Total Protein 6.5 Albumin 2.7 L Triglycerides 30 Total Cholesterol 106 LDL Cholesterol, Calc 50 HDL Cholesterol 50 Time Spent with Patient Time Spent with Patient: 25-34 minutes Time was spent: preparing to see the patient(eg.review tests), ordering medications,tests, procedures, referring, communicating with other health daycare director, indepentently interpreting results, counseling the patient and care coordination
[2023-10-28] MEDS: metOLazone 2.5 MG TAB 5 MG PO (11:38)
--- NOTE | 2023-10-28 12:18 | W.NUTRFU ---
Date of service: 10/28/23 Time of Service: 11:45 Nutrition Note NOTE: p53yo male admitted with acute on chronic heart failure, with a very long history of health problems, including DM II with neuropathy, pulmonary HTN, GERD, COPD, vitamin D deficiency within the last year , CKD stage III and stage III obesity with current BMI. Hx of lower extremity amputations bilaterally. Trace edema noted by nursing. Had message relayed from foreign food specialty cook staff that Leroy wanted to talk to me. Was lying at an incline on visit and wanted to discuss the menu options and felt the staff member taking his order was not too cooperative. Leroy dislikes seafood, will not eat chicken unless cooked by him, and has many other preferences and dislikes which I told him we would accommodate within his diet order. He was upset that staff attempted to limit his carb choices. I explained that 45-65g of carb per meal is where we try to guide patients but agreed he probably requires more than average at his current size. Will let staff know to be more flexible with his carb orders and be sure to viry the amounts so correct insulin coverage can be given. I spoke with Leroy via phone later and personally took his dinner order for tonight and breakfast tomorrow. He seemed to be ok with how I handled his concerns. he does the cooking at home for him and friend - talks about making his own koch. Does not count carbs. uses dexcom g7 cgm. We discussed carb needs and suggested ~16 carb choices per day in menu planning - Leroy does not have a great deal of knowledge about carb counting but has a general knowledge of what food choices are carb choices. Did not get into detailed education today as Leroy was more interested in menu choices and making sure he was given all the options available. I will be in tomorrow and bring him an update menu for patients and see if I can run some more diabetes education topics by him Time Spent in Nutritional Counseling and Treatment: minutes
[2023-10-28] MEDS: Insulin REGULAR-Human 100 UNITS/ML UNIT SC ×2 (16:52→21:40)
[2023-10-28] MEDS: Insulin Glargine 300 UNITS/3 ML PEN 28 UNITS SC (21:24)
[2023-10-28] MEDS: Acetaminophen 325 MG TAB PO (23:51)
[2023-10-29] VITALS (38 sets, daily range): BP systolic 115–136; BP diastolic 80–96; PULSE 81–98; RESP 4–23; TEMP 35.7–37.4; O2SAT 46–95
[2023-10-29] MEDS: Heparin 5,000 UNITS/ML VIAL 5000 UNITS SC ×3 (03:18→20:55)
[2023-10-29 06:57] LABS: Anion Gap 10.3 mmol/L (3-11); CO2 29.7 mmol/L (21.0-32.0); Calcium 8.3 mg/dL (8.5-10.1); Chloride 100 mmol/L (98-107); Estimated GFR 15.21 (mL/min/1.73m2); Glucose 78 mg/dL (74-106); Magnesium 2.3 mg/dL (1.8-2.4); Potassium 4.2 mmol/L (3.5-5.1); Sodium 140 mmol/L (136-145)
[2023-10-29 07:01] LABS: BUN 101 mg/dL (7-18); CREATININE 4.4 mg/dL (0.70-1.30)
[2023-10-29] MEDS: Tiotropium Bromide-Respimat 10 PUFF INH IH (08:02)
[2023-10-29] MEDS: Budesonide/Formoterol 160/4.5 6 GM 60 PUFF INH IH ×2 (08:02→21:02)
--- NOTE | 2023-10-29 08:21 | W.PM.PROGNOT ---
Date of Service Date of service: 10/29/23 Time of Service: 08:21 Assessment and Plan Assessment and plan (1) Acute on chronic systolic heart failure: Status: Resolved Assessment and plan: I think that we have reached a point where he has been adequately diuresed. I would like to perform VEXUS and bedside echo to evaluate his filling pressures and hepatic, portal vein and renal vein venous patterns. I did not have time to do this morning but told Leroy I would come back later to attempt this to give more information as to his volume status but clinically he does not seem to be hypervolemic, although w/ his obesity it is difficult to tell from exam other than he does not seem to have dependent edema and no evidence for pulmonary congestion. Patient be transferred to [facility] today Professional time spent interviewing and examining patient, discussion of goals of care with hospital team (care management, nursing and consulting professionals) was 45 minutes. (2) Ischemic cardiomyopathy: Status: Acute Assessment and plan: troponin I have leveled at 312, no ischemic pain (3) Coronary artery disease: Status: Chronic Assessment and plan: as above, continue home meds of atorvastatin, aspirin, consider long acting nitrate however, he has had no ischemic pain. Qualifiers: Coronary Disease-Associated Artery/Lesion type: [place] artery [place] vs. 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 He does have a CGM and which alerts him of his highs and lows. He indicated to me that he is not allergic to aspart insulin. He simply had a hypoglycemic spell while at [facility] d/t him being given too much. I will change him over to aspart so his insulin can be given with his meals rather than having to time his insulin to 30 minutes AC. I will also decrease his Lantus by another 25% to 22 units nightly. 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 will recheck labs in the morning and resume oral diuretics. (6) DVT prophylaxis: Status: Acute Assessment and plan: Will place him on heparin subcutaneously for DVT prophylaxis. Subjective Subjective Interval history since last seen: Leroy is doing better. He has had a good diuretic response but now is getting morre azotemic. BUN 101 and creatinine 4.4 (baseline is BUN 80's and creatinine 3.5). I have put his iv lasix and his oral indampamide on hold for today. Leroy thinks his baseline dry wt is 330 lb. He is not having the scrotal edema that he has had in the past. Exam Narrative Exam Narrative: Leroy is alert, sitting up eating breakfast and watching TV. He denies any CP or dyspnea Lungs: clear Heart: RRR (rhythm sinus in the 90's) Abdomen: obese, no pitting edema/induration of abdominal wall Scrotum does not appear edematous Thighs no pitting edema; good definition of his patella and proximal tibia w/out pitting edema Objective Last Vital Signs Temp 36 C L 10/29/23 04:21 Pulse 83 10/29/23 04:21 Resp 17 10/29/23 04:30 BP 118/85 10/29/23 04:21 Pulse Ox 88 L 10/29/23 04:30 Laboratory Results - last 24 hr 10/29/23 05:32 Sodium 140 Potassium 4.2 Chloride 100 Carbon Dioxide 29.7 Anion Gap 10.3 BUN 101 H* Creatinine 4.4 H* Est GFR (CKD-EPI 2020) 15.21 Glucose 78 Calcium 8.3 L Magnesium 2.3 Time Spent with Patient Time Spent with Patient: 35-49 minutes Time was spent: preparing to see the patient(eg.review tests), ordering medications,tests, procedures, referring, communicating with other health director of healthcare systems (Nursing), indepentently interpreting results, counseling the patient and care coordination
[2023-10-29] MEDS: Cyanocobalamin 500 MCG TAB 1000 MCG PO (09:13)
[2023-10-29] MEDS: Aspirin E.C. 81 MG TABEC PO (09:13)
[2023-10-29] MEDS: Atorvastatin 10 MG TAB PO (09:13)
[2023-10-29] MEDS: Multivitamin w/Minerals TAB 1 TAB PO (09:13)
[2023-10-29] MEDS: guaiFENesin 600 MG TABCR PO ×2 (09:14→20:55)
[2023-10-29] MEDS: Pantoprazole 40 MG TABCR PO (09:14)
[2023-10-29] MEDS: Carvedilol 12.5 MG TAB PO ×2 (09:14→20:55)
[2023-10-29] MEDS: Clopidogrel 75 MG TAB PO (09:15)
[2023-10-29] MEDS: Ferrous Sulfate 325 MG TAB PO (09:15)
[2023-10-29] MEDS: Cetirizine 10 MG TAB 5 MG PO (09:15)
[2023-10-29] MEDS: Cholecalciferol (Vitamin D3) 1,000 UNIT TAB 1000 UNITS PO (09:17)
[2023-10-29] MEDS: Ascorbic Acid 500 MG TAB PO (09:17)
[2023-10-29] MEDS: Clobetasol 0.05% CREAM 15 GM TUBE TP (11:07)
[2023-10-29] MEDS: Fluticasone NASAL SPRAY 16 GM BTL NS (11:07)
[2023-10-29] MEDS: Normal Saline Flush 10 ML SYR IVP ×2 (11:09→21:13)
--- NOTE | 2023-10-29 11:53 | PHACLINREV_ITS ---
Pharmacy Admission Review Admission Clinical Review Admission Pharmacy Review: DVT prophylaxis (Acute) Type 2 diabetes mellitus with proliferative diabetic retinopathy without macular edema, bilateral (Acute) CKD (chronic kidney disease) stage 4, GFR 15-29 ml/min (Acute) Ischemic cardiomyopathy (Acute) CHF exacerbation (Acute) Chronic systolic CHF (congestive heart failure) (Acute) tramadol Adverse Reaction (Severe, Verified 10/27/23 11:26) renal failure insulin aspart Adverse Reaction (Mild, Verified 10/27/23 11:26) HypOglycemia Poor Renal Function Adverse Reaction (Unknown, Uncoded 10/27/23 11:26) renal failure Resuscitation Status Full Code Height 6 ft 1 in Weight 156.7 kg Pharmacy Admission Review Renal Dosing Renal Dosing: BUN 101 mg/dL (7-18) H* 10/29/23 05:32 Creatinine 4.4 mg/dL (0.70-1.30) H* 10/29/23 05:32 Medications needing adjustments: Intervened (CrCl 30.3 mL/min, BUN increased from 89 to 101 and SCr increased from 4 to 4.4) List of meds needing interventions: Changed cetirizine from 10mg to 5mg daily Anticoagulation Anticoagulation: Hgb 14.6 g/dL (13.5-17.5) 10/28/23 06:49 Hct 46.9 % (40.0-50.0) 10/28/23 06:49 Plt Count 166 10^3/uL (130-400) 10/28/23 06:49 Creatinine 4.4 mg/dL (0.70-1.30) H* 10/29/23 05:32 DVT Prophylaxis: Reviewed Medications: Heparin (q8h) Relevant Labs Relevant Labs: Sodium 140 mmol/L (136-145) 10/29/23 05:32 Potassium 4.2 mmol/L (3.5-5.1) 10/29/23 05:32 Chloride 100 mmol/L (98-107) 10/29/23 05:32 Magnesium 2.3 mg/dL (1.8-2.4) 10/29/23 05:32 Electrolytes, C-Reactive P, ESR: Reviewed DM Control DM Control: Glucose 78 mg/dL (74-106) 10/29/23 05:32 Finger Stick Blood Glucose 162 1121 Finger Stick Blood Glucose 162 1121 Finger Stick Blood Glucose 64 0749 Finger Stick Blood Glucose 64 0749 DM Control: Reviewed Insulin Dosing, Diabetic Medication: Patients chart indicated an allergy/adverse reaction to insulin aspart. Order was put in for insulin regular to be dosed 30 minutes before meals and at bedtime. Per morning meeting, provider spoke with patient and patient clarified that they can use insulin aspart. The adverse reaction was hypoglycemia. Provider plans on changing insulin regular to insulin aspart SS. Lantus order was decreased from 28 units to 22 units due to hypoglycemia this morning. Cardiac Review Cardiac Review: Troponin I 312 ng/L (< or =60) H* 10/28/23 06:49 NT-Pro-B Natriuret Pep 16189 pg/mL (<300) H 10/27/23 12:03 BP, HR, EF%: Reviewed (HR 94 and BP WNL. Ox 91 L) QTc Review QTc: Reviewed (456 from 10/27/23) IV to PO Switch IV Medications: Reviewed Home Meds Home Med List reviewed: Intervened Relevent Home Meds Not ordered & why?: Dupixent (every 2 weeks), Advair (non- formulary substitution to Symbicort), ozempic (has SS insulin and Lantus orders), SSD 1% cream, spironolactone (on hold per H+P) and torsemide (on hold per H+P) Farxiga was added as a patients own medication. Called nursing to see if this could be brought in for the patient. Waiting to hear back. Current Meds Current Medication Order Review: Reviewed
[2023-10-29] MEDS: Insulin Glargine 300 UNITS/3 ML PEN 22 UNITS SC (20:55)
[2023-10-29] MEDS: Acetaminophen 325 MG TAB PO (22:53)
[2023-10-30] MEDS: Heparin 5,000 UNITS/ML VIAL 5000 UNITS SC ×3 (03:35→21:28)
[2023-10-30] MEDS: Acetaminophen 325 MG TAB PO (03:36)
[2023-10-30 03:46] VITALS: BP 137/87; PULSE 88; RESP 20; TEMP 36.8; O2SAT 89
[2023-10-30] MEDS: Ketorolac 15 MG/ML VIAL IVP (07:01)
[2023-10-30 07:11] LABS: HCT 46.7 % (40.0-50.0); HGB 14.9 g/dL (13.5-17.5); MCH 31.6 pg (27.0-33.0); MCHC 31.9 % (32.0-36.0); MCV 99 fL (80-95); MPV 11.6 fL (8.0-11.0); Platelet Count 167 10^3/uL (130-400); RBC 4.72 10^6/uL (4.36-5.78); RDW 15.5 % (11.8-14.1); RDW-SD 56.5 fL; WBC 11.31 10^3/uL (4.4-10.8)
[2023-10-30 07:29] LABS: Anion Gap 10.7 mmol/L (3-11); CO2 30.3 mmol/L (21.0-32.0); Calcium 8.4 mg/dL (8.5-10.1); Chloride 98 mmol/L (98-107); Estimated GFR 14.42 (mL/min/1.73m2); Glucose 193 mg/dL (74-106); NT-proBNP 15848 pg/mL (<300); Potassium 4.4 mmol/L (3.5-5.1); Sodium 139 mmol/L (136-145)
[2023-10-30 07:31] LABS: BUN 106 mg/dL (7-18); CREATININE 4.6 mg/dL (0.70-1.30)
[2023-10-30 08:05] VITALS: BP 123/92; PULSE 88; RESP 18; TEMP 36.4; O2SAT 94
[2023-10-30] MEDS: Budesonide/Formoterol 160/4.5 6 GM 60 PUFF INH IH ×2 (08:06→20:05)
[2023-10-30] MEDS: Tiotropium Bromide-Respimat 10 PUFF INH IH (08:16)
--- NOTE | 2023-10-30 08:47 | W.PM.PROGNOT ---
Date of Service Date of service: 10/30/23 Time of Service: 08:47 Assessment and Plan Assessment and plan (1) Acute on chronic systolic heart failure: Status: Resolved Assessment and plan: Leroy has been more than adequate diuresed, overall I/O have been negative. His urine ouputs have been over 4 liters per day. I held his diuretics yesterday d/t worsening azotemia. His BUN creatinine continues to rise. BUN 101 and creatinine 4.6. Patient did get toradol for his back pains last night x one dose. I explained to him that he should not have been given this. It did help his back pain last night. I was going to resume oral diuretics today w/ hope of dc him tomorrow, however, after perform VEXUS study of his liver and renal veins and limited echo, I think that he is not congested and his physical exam also is not consistent w/ a hypervolemic state. I will continue to hold diuretics for one more day. Will get formal echo tomorrow. Dr. Regan will be assuming his care, I explained this to Leroy. (2) Ischemic cardiomyopathy: Status: Acute Assessment and plan: troponin I levels have plateau, no ischemic pain or dyspnea and with no new EKG changes. will check follow up echo for any new RWMA, we know that he has severe cardiomyopathy and has an AICD (3) Coronary artery disease: Status: Chronic Assessment and plan: as above, continue home meds of atorvastatin, aspirin. Qualifiers: Associated angina: without angina Coronary Disease-Associated Artery/Lesion type: [place] artery [place] vs. transplanted heart: [place] heart Qualified Code(s): I25.10 - Atherosclerotic heart disease of [place] coronary artery without angina pectoris (4) Type 2 diabetes mellitus with proliferative diabetic retinopathy without macular edema, bilateral: Status: Acute Assessment and plan: no hypoglycemia overnight. Qualifiers: Diabetes mellitus longterm insulin use: with longterm use Qualified Code(s): E11.3593 - Type 2 diabetes mellitus with proliferative diabetic retinopathy without macular edema, bilateral; Z79.4 - USP (current) use of insulin (5) CKD (chronic kidney disease) stage 4, GFR 15-29 ml/min: Status: Acute Assessment and plan: worsening azotemia; duretics remain on hold. repeat labs tomorrow. (6) DVT prophylaxis: Status: Acute Assessment and plan: Will place him on heparin subcutaneously for DVT prophylaxis. Subjective Subjective Interval history since last seen: Leroy had some back pains last night, treated w/ lidocaine patch, (also inadvertently given ketorolac), and given tylenol, back pain is better this morning. He feels a little edema in his abdomen and thighs. He denies any dyspnea or chest pain/pressure. 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 Exam Narrative Exam Narrative: Leroy is sitting up watching TV, no acute distress, not dyspneic w/ prolonged conversation Lungs: clear to ausculatation Heart: RRR (review of telemetry w/ ICU nurses, rare PVC w/ one 3 beat run; rhythm sinus w/ BBB, 1st degree) Abdomen: obese, no discernible edema of the abdominal wall, scrotum does not look edematous external catheter draining clear yellow urine (urine output for 24 hr= 4 liters yesterday but only 725 mL from midnight to now) Extremities: he has no pitting edema of his thighs or knees Objective Last Vital Signs Temp 36.4 C L 10/30/23 08:05 Pulse 88 10/30/23 08:05 Resp 18 10/30/23 08:05 BP 123/92 H 10/30/23 08:05 Pulse Ox 94 10/30/23 08:05 Laboratory Results - last 24 hr 10/30/23 10/30/23 06:15 06:15 WBC 11.31 H RBC 4.72 Hgb 14.9 Hct 46.7 MCV 99 H MCH 31.6 MCHC 31.9 L RDW 15.5 H Plt Count 167 MPV 11.6 H Sodium 139 Potassium 4.4 Chloride 98 Carbon Dioxide 30.3 Anion Gap 10.7 BUN 106 H* Creatinine 4.6 H* Est GFR (CKD-EPI 2020) 14.42 Glucose 193 H Calcium 8.4 L NT-Pro-B Natriuret Pep Cancelled 26589 H Time Spent with Patient Time Spent with Patient: 35-49 minutes Time was spent: preparing to see the patient(eg.review tests), ordering medications,tests, procedures, referring, communicating with other health patient centered care specialist, indepentently interpreting results, counseling the patient and care coordination
[2023-10-30] MEDS: Lidocaine 5% Patch 1 PATCH TP (08:51)
[2023-10-30] MEDS: Insulin Aspart 300 UNITS/3 ML PEN SC ×6 (08:52→17:59)
[2023-10-30] MEDS: Multivitamin w/Minerals TAB 1 TAB PO (08:53)
[2023-10-30] MEDS: Ascorbic Acid 500 MG TAB PO (08:53)
[2023-10-30] MEDS: Cetirizine 10 MG TAB 5 MG PO (08:53)
[2023-10-30] MEDS: guaiFENesin 600 MG TABCR PO ×2 (08:53→21:30)
[2023-10-30] MEDS: Cyanocobalamin 500 MCG TAB 1000 MCG PO (08:53)
[2023-10-30] MEDS: Carvedilol 12.5 MG TAB PO ×2 (08:53→21:30)
[2023-10-30] MEDS: Atorvastatin 10 MG TAB PO (08:54)
[2023-10-30] MEDS: Cholecalciferol (Vitamin D3) 1,000 UNIT TAB 1000 UNITS PO (08:54)
[2023-10-30] MEDS: Clopidogrel 75 MG TAB PO (08:54)
[2023-10-30] MEDS: Aspirin E.C. 81 MG TABEC PO (08:54)
[2023-10-30] MEDS: Ferrous Sulfate 325 MG TAB PO (08:54)
[2023-10-30] MEDS: Pantoprazole 40 MG TABCR PO (08:54)
[2023-10-30] MEDS: Fluticasone NASAL SPRAY 16 GM BTL NS (08:55)
[2023-10-30] MEDS: Normal Saline Flush 10 ML SYR IVP ×2 (08:55→21:29)
--- NOTE | 2023-10-30 11:25 | W.POCUS ---
Pocus Exam Limited Cardiac Exam DATE OF EXAM: 10/30/23 TIME OF EXAM: 10:07 PROVIDER THAT PERFORMED THE STUDY: Darek Reynolds IS THIS A REPEAT EXAM DURING THIS ENCOUNTER: no REASON FOR EXAM: Congestive heart failure VISUALIZED STRUCTURES: left atrium, left ventricle, LVOT, right atrium, right ventricle, aortic valve, mitral valve, Interventricular septum and IVC VIEW OBTAINED: Parasternal long-axis, Parasternal short-axis and Subxiphoid PERTINENT FINDINGS/IMPRESSION: LV dysfunction :severe (estimated LVEF is 20%), Plethoric IVC, RV dilation and RV dysfunction; no IVC inspiratory collapsability and No pericardial effusion INCIDENTAL FINDINGS: Hepatic vein, portal vein and renal vein dopper interrogation was done. He has normal systolic and diastolic venous hepatic vein flow pattern i.e. systolic >diastolic and his portal vein flow showed less than 50% pulsatility between systole and diastole, a decent renal vein pattern was not obtained to determine renal vein pulsatility. Overall impression is that his liver and kidneys are not congested an apical 4 chamber view was not adequately achieved in order to obtain LV filling pressures Exam complete
[2023-10-30 11:59] VITALS: BP 120/86; PULSE 74; RESP 19; TEMP 36.3; O2SAT 91
[2023-10-30] MEDS: Methocarbamol 750 MG TAB 1500 MG PO ×3 (12:39→21:30)
[2023-10-30 16:00] VITALS: BP 126/96; PULSE 83; RESP 19; TEMP 36.1; O2SAT 92
[2023-10-30 20:05] VITALS: O2SAT 94
[2023-10-30 20:47] VITALS: BP 138/93; PULSE 83; RESP 18; TEMP 36.6; O2SAT 93
[2023-10-30] MEDS: Insulin Glargine 300 UNITS/3 ML PEN 22 UNITS SC (21:30)
[2023-10-30] MEDS: Patch Removal LIDOCAINE 1 EACH TP (21:56)
[2023-10-31 00:19] VITALS: BP 125/80; PULSE 91; RESP 18; TEMP 36.5; O2SAT 94
[2023-10-31] MEDS: Lidocaine 5% Patch 1 PATCH TP (02:56)
[2023-10-31 03:50] VITALS: BP 121/81; PULSE 85; RESP 16; TEMP 36.2; O2SAT 91
[2023-10-31] MEDS: Heparin 5,000 UNITS/ML VIAL 5000 UNITS SC ×3 (04:39→21:14)
--- NOTE | 2023-10-31 07:00 | DI.US_ITS ---
APPROVED REPORT EXAM: Comprehensive 2D, Doppler, and color-flow Echocardiogram Patient Location: In-Patient Room/Bed: [address] Trimmer: Anjana Downs RDCS (AE) Indications: Iscehmic cardiomyopathy, Acute on chronic HF, CAD Other Information Study Quality: Poor. Technically limited study due to body habitus, inability to position patient exa m done supine bedside.. Conclusion Technically limited study The left ventricle is dilated. Function is severely reduced. EF is <25%. Segmental wall motion cannot be assessed Right ventricle appears dilated. Both atria are enlarged Device lead in the right heart Within the limits of the study there are no significant valvular abnormalities identified Wall motion Left Ventricle Technically limited imaging windows. Left ventricular systolic function is severely decreased. Region al wall motion abnormalities cannot be excluded. Right Ventricle Right ventricle is not well visualized. Right ventricular systolic function could not be assessed. De vice lead is present in the right ventricle. Atria Left atrium is not well visualized. Right atrium is not well visualized. Aortic Valve The aortic valve is mildly sclerotic Number of aortic valve leaflets could not be assessed. There is no aortic valvular stenosis. No aortic regurgitation is present. Mitral Valve Mild mitral annular calcification. No evidence of mitral valve stenosis. Tricuspid Valve The tricuspid valve is normal in structure. There is no tricuspid valve stenosis. Trace to mild tricu spid regurgitation. Pulmonic Valve Pulmonic valve is not well visualized. There is no pulmonic valvular stenosis. Trace to mild pulmonic regurgitation. Great Vessels The aortic root is normal in size. The ascending aorta is mildly dilated. The IVC collapses <50% with inspiration. Pericardium Technically limited imaging. Limited views obtained. 2D Dimensions Ao Root d 3.33 cm M: 3.1 - 3.7 Ao Asc Diam d 3.61 cm M: 2.6 - 3.4 LV Diastology MV E' medial 0.643 (>0.07 m/s) Aortic Valve LVOT Diam s 2.20 cm Pulmonary Valve PV Vmax 0.55 (0.5-1.5 m/s) RVOT Vmax 0.61 m/s PV Peak Grad 1.2 mmHg RVOT Peak Gr. 1.5 mmHg PV Mean Yemi 0.35 m/s RVOT VTI 0.117 m PV Mean Grad 0.6 mmHg RVOT Mean Gr. 0.8 mmHg Tricuspid Valve TR Vmax 3.19 m/s TR Peak Grad 40.5 mmHg
[2023-10-31 07:23] LABS: Calcium 8.3 mg/dL (8.5-10.1); Chloride 97 mmol/L (98-107); Estimated GFR 14.05 (mL/min/1.73m2); Glucose 214 mg/dL (74-106); Potassium 4.9 mmol/L (3.5-5.1); Sodium 136 mmol/L (136-145)
[2023-10-31 07:37] LABS: BUN 114 mg/dL (7-18); CREATININE 4.7 mg/dL (0.70-1.30)
[2023-10-31] MEDS: Acetaminophen 325 MG TAB PO (07:52)
[2023-10-31 08:28] VITALS: BP 134/91; PULSE 87; RESP 16; TEMP 35.8; O2SAT 93
[2023-10-31] MEDS: Budesonide/Formoterol 160/4.5 6 GM 60 PUFF INH IH ×2 (08:30→20:16)
[2023-10-31] MEDS: Tiotropium Bromide-Respimat 10 PUFF INH IH (08:30)
--- NOTE | 2023-10-31 09:20 | CMPROGNOTE_ITS ---
Date of service: 10/31/23 Time of Service: 09:20 Care Management Progress Note Progress Note Text Progress Note Text: S/O:Leroy was sitting up in bed when CM met with him. He did not appear to be in a very good mood and indicated that he has had difficulties with ordering meals. He shared that he dislikes chicken and fish and tries to avoid carbs because of his diet. He informed CM that he had a terse discussion with someone from [place] and told them to forget about dinner. He also stated that his wheelchair does not work well and that he would like a new one. He reported that it was paid for by his insurance about 3 years ago. Generally, DME is not replaced unless it has been at least 5 years but CM agreed to follow up with his insurance company to see what their practice is. CM will also aske if there is a career development associate assigned to him at [facility]. Leroy is eligible for Medicare in January and stated that he believes he may need to wait until then to get a new wheelchair or, his preference, a motorozed mobility scooter. A: Leroy is a 53 year old man admitted on 10/27/23 with CHF P:Anticipate Leroy will be discharged home with no new services when medically stable. He will follow up with his PCP and plan of care and transport via RCT coordinated by CM. CM will follow and continue to assess for discharge needs. SDOH(Care Management) Screening Will the Patient Participate in the Screening?: Unable to obtain Social Determinants of Health Comments(SDOH Details): does state that we don't have any problems now, Im living on my ex girlfriends couch and I am looking for a new apt
[2023-10-31] MEDS: Clobetasol 0.05% CREAM 15 GM TUBE TP (09:41)
[2023-10-31] MEDS: Cyanocobalamin 500 MCG TAB 1000 MCG PO (09:45)
[2023-10-31] MEDS: Methocarbamol 750 MG TAB 1500 MG PO ×4 (09:46→21:14)
[2023-10-31] MEDS: Carvedilol 12.5 MG TAB PO ×2 (09:46→21:14)
[2023-10-31] MEDS: guaiFENesin 600 MG TABCR PO ×2 (09:46→21:15)
[2023-10-31] MEDS: Cetirizine 10 MG TAB 5 MG PO (09:46)
[2023-10-31] MEDS: Cholecalciferol (Vitamin D3) 1,000 UNIT TAB 1000 UNITS PO (09:47)
[2023-10-31] MEDS: Ascorbic Acid 500 MG TAB PO (09:47)
[2023-10-31] MEDS: Multivitamin w/Minerals TAB 1 TAB PO (09:47)
[2023-10-31] MEDS: Atorvastatin 10 MG TAB PO (09:47)
[2023-10-31] MEDS: Clopidogrel 75 MG TAB PO (09:47)
[2023-10-31] MEDS: Normal Saline Flush 10 ML SYR IVP ×2 (09:47→21:17)
[2023-10-31] MEDS: Pantoprazole 40 MG TABCR PO (09:47)
[2023-10-31] MEDS: Ferrous Sulfate 325 MG TAB PO (09:47)
[2023-10-31] MEDS: Aspirin E.C. 81 MG TABEC PO (09:47)
[2023-10-31] MEDS: Insulin Aspart 300 UNITS/3 ML PEN SC ×6 (09:52→17:26)
[2023-10-31 11:43] VITALS: BP 137/104; PULSE 87; RESP 17; TEMP 37; O2SAT 92
--- NOTE | 2023-10-31 15:10 | NUR.NOTE ---
Pt has been speaking down to staff and has been incessantly calling food service worker hospital and hanging up on them, food service worker hospital reports pt is being disrespectful. Staff in to room to discuss utilizing the phone and reinforcing appropriate times to call for food orders. Pt frustratingly states I will NOT be eating! Lisa has been in a few times to attempt to get food order, pt feels that Lisa is rude to her and refuses to take his order. Will continue to monitor situation and intervene as needed.
--- NOTE | 2023-10-31 15:17 | PGE_ITS ---
Date of Service Date of service: 10/31/23 Time of Service: 15:17 Assessment and Plan Assessment and plan (1) Acute on chronic systolic heart failure: Status: Resolved Assessment and plan: -s/p IV diuresis and remains euvolemic; overall I/O have been negative, urine ouputs have been over 4 liters per day. -diuresits held on 10/28 due to worsening Cr, now up to 4.7 from 4.6 previous day -Patient did get toradol for his back pains HS 10/28 x1 dose -was going to resume oral diuretics 10/29, however, previous physician performed VEXUS study of his liver and renal veins and limited echo; does not appear congested and his physical exam also is not consistent w/ a hypervolemic state. -continue to hold diuretics for one more day -formal TTE confirms EF <25% with bilateral atrial and ventricular dilation (2) Ischemic cardiomyopathy: Status: Acute Assessment and plan: -troponin I levels have plateau, no ischemic pain or dyspnea and with no new EKG changes (3) Coronary artery disease: Status: Chronic Assessment and plan: -as above, continue home meds of atorvastatin, aspirin. Qualifiers: Coronary Disease-Associated Artery/Lesion type: [place] artery [place] vs. 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 Subjective Subjective Interval history since last seen: Patient states that he is in a bad mood because of dietary. Apparently, patient has had multiple complaints about the food during his inpatient stay. However, he understands he will stay an additional night to continue to track his kidney function levels and has no other complaints or concerns at this Exam Narrative Exam Narrative: Chronically ill-appearing gentleman laying in bed in no acute distress, ANO x 4, heart regular rhythm, lungs clear to auscultation bilaterally, abdomen soft, obese, nontender, nondistended, bilateral BKA's with minimal edema Objective Last Vital Signs Temp 98.6 F 10/31/23 11:43 Pulse 87 10/31/23 11:43 Resp 17 10/31/23 11:43 BP 137/104 H 10/31/23 11:43 Pulse Ox 92 10/31/23 11:43 Laboratory Results - last 24 hr 10/31/23 05:46 Sodium 136 Potassium 4.9 Chloride 97 L Carbon Dioxide 29.0 Anion Gap 10.0 BUN 114 H* Creatinine 4.7 H* Est GFR (CKD-EPI 2020) 14.05 Glucose 214 H Calcium 8.3 L Time Spent with Patient Time Spent with Patient: >50 minutes Time was spent: preparing to see the patient(eg.review tests), obtaining and/or reviewing separately otained hiistory, ordering medications,tests, procedures, referring, communicating with other health director of home care hospice, indepentently interpreting results, counseling the patient and care coordination
[2023-10-31 19:36] VITALS: BP 130/89; PULSE 86; RESP 20; TEMP 36.3; O2SAT 91
[2023-10-31] MEDS: Insulin Glargine 300 UNITS/3 ML PEN 22 UNITS SC (21:14)
[2023-10-31 23:18] VITALS: BP 133/91; PULSE 88; RESP 16; TEMP 36.3; O2SAT 92
[2023-10-31] MEDS: Patch Removal LIDOCAINE 1 EACH TP (23:23)
[2023-11-01 02:33] VITALS: BP 114/77; PULSE 90; RESP 20; TEMP 36.4; O2SAT 93
[2023-11-01 03:13] VITALS: BP 134/94; PULSE 90; RESP 20; TEMP 36.4; O2SAT 97
[2023-11-01] MEDS: Heparin 5,000 UNITS/ML VIAL 5000 UNITS SC (04:28)
--- NOTE | 2023-11-01 05:04 | NUR.NOTE ---
At 0235, pt rang to request staff assistance in transferring to BSC. Idalia CORDON assisted pt in applying his prosthetic legs, preparing BSC, and making standard walker available for pt. This RN then assisted pt to use elevated bed, bed rails, and walker to get to a standing position. Pt was able to successfully stand and pivot to bariatric BSC, lowering self to the seat using the handles of the BSC. Following the completion of his bowel movement, pt rang appropriately for staff assistance to transfer back to bed. This RN, Ramesh ESPINOZA, and Idalia CORDON responded and arranged for a grab bar for pts use to assist in pulling himself to a standing position, with the RNs at either side of pt and the BALL FRINGE MACHINE OPERATOR behind pt to assist pt to standing position. After an unsuccessful attempt to stand due to ill-fitting prostheses (pt noted that he was scheduled to have the prostheses adjusted for improved fit on 10/30), the RNs applied a gait belt and again attempted 3x to assist pt to standing; these three efforts failed and pt was successfully assisted to sit back on BSC; pt observed verbally that the cup of his left leg prosthesis was displacing laterally during each attempt and refitted the prosthetic to his leg. The final attempt to achieve standing resulted in the BSC being displaced backwards; when pt was unable to stand and navigation to return to a seated position on the BSC was not feasible, the RNs used the gait belt to slowly lower the pt to a seated position on the floor. The BALL FRINGE MACHINE OPERATOR retrieved pillows from the bed and placed them behind the pt's head, so that he could lean back more comfortably against the BSC; eventually, staff was able to remove the BSC and lower the pt to a supine position. Pt's prostheses were in an awkward and uncomfortable position and the RNs assisted the pt in removing them. Further assistance was called for over the radio and the remaining 2 RNs on the unit at the time responded and retrieved the Magan lift and sling. The sling was applied and the lift was used to elevate the pt and move him back to the bed. Pt verbally stated that he was not injured nor that he hit his head. This RN and Darius Zhu RN assessed the pt for any new skin issues and found none. Jessica CORDON collected a set of vital signs, which were stable and consistent with previous assessments.
[2023-11-01 07:08] LABS: Magnesium 2.5 mg/dL (1.8-2.4)
[2023-11-01 07:11] LABS: Anion Gap 9.6 mmol/L (3-11); CO2 28.4 mmol/L (21.0-32.0); Calcium 8.1 mg/dL (8.5-10.1); Chloride 96 mmol/L (98-107); Estimated GFR 16.08 (mL/min/1.73m2); Glucose 217 mg/dL (74-106); Potassium 4.6 mmol/L (3.5-5.1); Sodium 134 mmol/L (136-145)
[2023-11-01 07:16] LABS: BUN 109 mg/dL (7-18); CREATININE 4.2 mg/dL (0.70-1.30)
[2023-11-01] MEDS: Budesonide/Formoterol 160/4.5 6 GM 60 PUFF INH IH (07:56)
[2023-11-01] MEDS: Tiotropium Bromide-Respimat 10 PUFF INH IH (07:56)
[2023-11-01 08:19] VITALS: BP 144/95; PULSE 89; RESP 19; TEMP 35.7; O2SAT 93
[2023-11-01] MEDS: Ascorbic Acid 500 MG TAB PO (09:27)
[2023-11-01] MEDS: Cholecalciferol (Vitamin D3) 1,000 UNIT TAB 1000 UNITS PO (09:27)
[2023-11-01] MEDS: Clopidogrel 75 MG TAB PO (09:27)
[2023-11-01] MEDS: Multivitamin w/Minerals TAB 1 TAB PO (09:28)
[2023-11-01] MEDS: Atorvastatin 10 MG TAB PO (09:28)
[2023-11-01] MEDS: guaiFENesin 600 MG TABCR PO (09:28)
[2023-11-01] MEDS: Pantoprazole 40 MG TABCR PO (09:28)
[2023-11-01] MEDS: Cetirizine 10 MG TAB 5 MG PO (09:29)
[2023-11-01] MEDS: Ferrous Sulfate 325 MG TAB PO (09:29)
[2023-11-01] MEDS: Aspirin E.C. 81 MG TABEC PO (09:29)
[2023-11-01] MEDS: Methocarbamol 750 MG TAB 1500 MG PO (09:29)
[2023-11-01] MEDS: Carvedilol 12.5 MG TAB PO (09:29)
--- NOTE | 2023-11-01 09:29 | PDOC.CMPRO ---
Date of service: 11/01/23 Time of Service: 09:29 Care Management Progress Note Progress Note Text Progress Note Text: S/O:Leroy was sitting up in bed when CM met with him. A: Leroy is a 53 year old man admitted on 10/27/23 with CHF P:Anticipate Leroy will be discharged home with no new services when medically stable. He will follow up with his PCP and plan of care and transport via RCT coordinated by CM. CM will follow and continue to assess for discharge needs. SDOH(Care Management) Screening Will the Patient Participate in the Screening?: Unable to obtain Social Determinants of Health Comments(SDOH Details): does state that we don't have any problems now, Im living on my ex girlfriends couch and I am looking for a new apt Health Related Social Needs Health related social needs: inadequate housing(Z59.1)
[2023-11-01] MEDS: Lidocaine 5% Patch 1 PATCH TP (09:30)
[2023-11-01] MEDS: Normal Saline Flush 10 ML SYR IVP (09:31)
[2023-11-01] MEDS: Cyanocobalamin 500 MCG TAB 1000 MCG PO (09:42)
[2023-11-01] MEDS: Fluticasone NASAL SPRAY 16 GM BTL NS (09:50)
--- NOTE | 2023-11-01 09:50 | W.NUTRFU ---
Date of service: 11/01/23 Time of Service: 09:00 Nutrition Note NOTE: Mr Serrato has expressed his displeasure for the food and some of the staff from the food and beverage director dept. I was told he called the kitchen to ask for me last evening and was rude to staff - hung up on them. I went up this morning to take his orders for his meals today as staff are turned off by him and don't want to approach him. He is extremely selective and has expectations that might exceed institutional style food and beverage director at times. He is ordered for low sodium diet and requests 4 strips of koch each morning- he did receive once and then this amount was cut back due to trying to stay withing diet order parameters. I tried to explain this to Mr Serrato this morning and he told me to leave his room. He has not ordered lunch at this time and I contacted nursing to check with him later so they can communicate his order to food and beverage director. Time Spent in Nutritional Counseling and Treatment: 5 minutes
[2023-11-01 11:15] VITALS: BP 114/97; PULSE 90; RESP 18; TEMP 36.2; O2SAT 91
--- NOTE | 2023-11-01 11:22 | W.PM.DS.N ---
Date of service: 11/01/23 Time of Service: 11:22 DS: Diagnosis Discharge Diagnosis (1) Acute on chronic systolic heart failure: Status: Resolved Asessment and Plan: s/p IV diuresis and remains euvolemic; overall I/O have been negative, urine ouputs have been over 4 liters per day. -diuresits held on 10/28 due to worsening Cr, now up to 4.7 from 4.6 previous day -Patient did get toradol for his back pains HS 10/28 x1 dose -was going to resume oral diuretics 10/29, however, previous physician performed VEXUS study of his liver and renal veins and limited echo; does not appear congested and his physical exam also is not consistent w/ a hypervolemic state. -formal TTE confirms EF <25% with bilateral atrial and ventricular dilation -Cr significantly improved on day of discharge -Discussed with patient, will restart spironolactone at discharge, it is recommended that he hold his home torsemide until he sees his PCP and has some follow-up labs, though he could also restart his torsemide if he notices significant worsening of his lower extremity edema (2) Ischemic cardiomyopathy: Status: Acute Asessment and Plan: -troponin I levels have plateau, no ischemic pain or dyspnea and with no new EKG changes (3) Coronary artery disease: Status: Chronic (4) Type 2 diabetes mellitus with proliferative diabetic retinopathy without macular edema, bilateral: Status: Acute (5) CKD (chronic kidney disease) stage 4, GFR 15-29 ml/min: Status: Acute (6) DVT prophylaxis: Status: Acute Discharge Plan Disposition Patient Disposition: Home Condition: Good Discharge Details Reason For Visit: Acute exacerbation of HFREF, elevated troponin Admit Date/Time: 10/27/23 13:49 Admit Provider: Darek Reynolds Attending Provider: Darek Reynolds Primary Care Provider: Candice Perez Hospital Course Hospital Course: Patient initially presented with acute exacerbation of HFrEF for which she was adequately diuresed. However, he did have significant increase in his creatinine though remainder of his kidney function remained stable as he had good urine output and stable electrolytes. However, after holding his diuretics his creatinine appeared to improve. It was discussed with the patient that he will be restarted on his home spironolactone, and that he should hold off on restarting his torsemide until he sees his PCP within a week. However, it was also discussed with him that if he notices significant change or worsening in his lower extremity edema that he can restart his torsemide but he should remain in close contact with his PCP. Home Meds and New Rx's Prescriptions: Continued (DME) Left Outer Sleeve See Rx Instructions .Route .MEDSUPPLY Qty: 1 0RF Rx Instructions: As directed (DME) Right prosthetic socket See Rx Instructions .Route .MEDSUPPLY Qty: 1 0RF Rx Instructions: As directed (DME) glucometer WITH MATCHING TEST STRIPS See Rx Instructions .Route .MEDSUPPLY Qty: 1 0RF Rx Instructions: Using TID until CGM available, then as back-up (DME) lancets Misc See Rx Instructions .ROUTE .MEDSUPPLY Qty: 300 3RF Rx Instructions: To check blood glucose three times daily. On insulin. Dispense covered brand. (DME) Sleeve, Left BKA See Rx Instructions .Route .MEDSUPPLY Qty: 1 0RF Rx Instructions: Per measure & fit by [employer] (DME) Sleeve, Right BKA See Rx Instructions .Route .MEDSUPPLY Qty: 1 0RF Rx Instructions: Per measure & fit by [employer] (DME) Dexcom G7 Sensor Device See Rx Instructions .Route Qty: 3 11RF Rx Instructions: For A1C < 7.5, DM E11.8 (36 per year) (DME) Dexcom G7 Leather Grader Misc See Rx Instructions .Route Qty: 1 3RF Rx Instructions: As directed to manage DM, E11.8 - 36 Sensors/year. A1C < 7.5 multivitamin with iron Tablet 1 tab PO DAILY Qty: 90 3RF Rx Instructions: Take one tablet daily by mouth spironolactone 50 mg tablet 50 mg PO DAILY Qty: 90 2RF Rx Instructions: Continue (with possible BID use if torsemide increased 2' acute edema) ferrous sulfate 325 mg (65 mg iron) tablet 325 mg PO DAILY Rx Instructions: [facility] [employer] (DME) Amputation Compression Sleeve See Rx Instructions .Route .MEDSUPPLY Qty: 1 0RF Rx Instructions: Please provide and fit a compression sleeve to the left BKA stump for appropriate prosthesis wear. (DME) fore arm cuff crutches See Rx Instructions .Route .MEDSUPPLY Qty: 1 0RF Rx Instructions: dispense 1 pair nicotine (polacrilex) [Nicorette] 2 mg lozenge 2 mg buccal Q6H PRN (Reason: nicotine cravings) Qty: 108 1RF Hold Instructions: Home Medication placed on hold at Doctor's office halobetasol propionate 0.05 % cream 1 applic topical DAILY PRN Hold Instructions: Home Medication placed on hold at Doctor's office Rx Instructions: 12/07/21 apply 1-2x/day qd for 7-14 days, then 1 week off, and repeat as needed acetaminophen 325 mg tablet 650 mg PO Q4H PRN (Reason: fever or pain) Qty: 180 1RF azelastine 137 mcg (0.1 %) aerosol,spray See Rx Instructions intranasal BID Qty: 30 1RF Rx Instructions: 1-2 sprays intranasal twice a day; administer into each nostril (DME) FreeStyle Luis 2 Irving Misc See Rx Instructions .ROUTE .MEDSUPPLY Qty: 1 0RF Hold Instructions: Home Medication placed on hold at Doctor's office Rx Instructions: As directed (DME) FreeStyle Luis 2 Sensor Kit See Rx Instructions .ROUTE .MEDSUPPLY Qty: 6 3RF Hold Instructions: Home Medication placed on hold at Doctor's office Rx Instructions: As directed fluticasone propion-salmeterol [Advair Diskus] 250-50 mcg/dose blister with device 1 inh inhalation BID Qty: 60 0RF levalbuterol tartrate 45 mcg/actuation HFA aerosol inhaler 2 inh inhalation Q6H PRN PRN (Reason: shortness of breath or wheezing) Qty: 15 0RF silver sulfadiazine 1 % cream 1 applic topical BID Qty: 400 3RF Hold Instructions: Home Medication placed on hold at Doctor's office Rx Instructions: apply a 1.5 mm thickness to lower leg surgical site clobetasol 0.05 % spray,non-aerosol 1 applic topical BID 7 Days Qty: 59 1RF Rx Instructions: not to exceed 26 sprays per single application fluticasone propionate [Allergy Relief (fluticasone)] 50 mcg/actuation spray,suspension 1 spray intranasal DAILY Qty: 16 1RF Rx Instructions: administer into each nostril carvedilol 12.5 mg tablet 12.5 mg PO BID Qty: 180 3RF Rx Instructions: must administer with a meal/food aspirin 81 mg tablet,delayed release (DR/EC) 81 mg PO DAILY Qty: 90 3RF atorvastatin 10 mg tablet 10 mg PO DAILY Qty: 90 3RF cetirizine 10 mg tablet 10 mg PO DAILY Qty: 90 3RF cholecalciferol (vitamin D3) 25 mcg (1,000 unit) capsule 25 mcg PO DAILY Qty: 90 3RF cyanocobalamin (vitamin B-12) 1,000 mcg capsule 1,000 mcg PO DAILY Qty: 90 3RF (DME) Contour Test Strips Strip See Rx Instructions .Route Qty: 100 2RF Rx Instructions: DX E11.9 Check BS TID use as back up if CGM fails. pantoprazole 40 mg tablet,delayed release (DR/EC) 40 mg PO DAILY Qty: 90 3RF clopidogrel 75 mg tablet 75 mg PO DAILY Qty: 30 5RF Rx Instructions: take separately from reflux medication. guaifenesin 600 mg tablet extended release 12hr 600 mg PO BID Qty: 20 1RF Farxiga 5 mg tablet See Rx Instructions .ROUTE .COMPLEX Qty: 28 10RF Dose Instruction: TAKE 1 TABLET BY MOUTH DAILY FOR TYPE 2 DIABETES MELLITUS NOT AT GOAL, STAGE 3 CKD Rx Instructions: TAKE 1 TABLET BY MOUTH DAILY FOR TYPE 2 DIABETES MELLITUS NOT AT GOAL, STAGE 3 CKD ascorbic acid (vitamin C) 1,000 mg tablet 500 mg PO DAILY Qty: 90 3RF Rx Instructions: Doses exceeding 500mg daily will invalidate CGM sensor. 02/04/22 EO insulin lispro [Humalog KwikPen Insulin] 100 unit/mL insulin pen 1 sliding scale dose subcut USEASDIRECTD MDD 50 units Qty: 15 3RF Rx Instructions: [facility] Endo - current correction of 1u:30mg/dl, starting at 130mg/dl per pt. 01/06/21 Spiriva Respimat 2.5 mcg/actuation mist See Rx Instructions .ROUTE .COMPLEX Qty: 4 3RF Dose Instruction: INHALE 2 PUFFS BY MOUTH DAILY Rx Instructions: INHALE 2 PUFFS BY MOUTH DAILY Ozempic 0.25 mg or 0.5 mg (2 mg/3 mL) pen injector 0.5 mg subcut QWEEK Qty: 3 2RF Rx Instructions: for 4 weeks minimum; may increase to 1mg (TBD with CDE/Pharmacist or PCP) (DME) pen needle, diabetic [BD Ultra-Fine Mini Pen Needle] 31 gauge x 3/16 needle See Rx Instructions .Route Qty: 300 3RF Rx Instructions: As directed for injecting Lantus/humalog to maintain A1C < 7, DM E11.8 insulin glargine [Lantus Solostar U-100 Insulin] 100 unit/mL (3 mL) insulin pen 35 unit subcut QPM Qty: 35 3RF Dupixent Syringe 300 mg/2 mL syringe 300 mg SUBCUT Q2W Held torsemide 20 mg tablet 100 mg PO DAILY Hold Instructions: Resume on 11/15/23. hold until you see your PCP or restart if you notice worsening of your LE edema Rx Instructions: Rx changed 07/21/23 torsemide 20 mg tablet See Rx Instructions PO DAILY PRN (Reason: acute edema, abd swelling, dyspnea (MAY NEED LABS)) Qty: 100 1RF Hold Instructions: Resume on 11/15/23. hold until you see your PCP or restart if you notice worsening of your LE edema Rx Instructions: Additional 1-4 tabs, based on weight gain & d/w PCP orally daily PRN; Special EXTRA dose, per d/w Med Team Discharge Instructions Activity:: Activity as Tolerated Equipment/Supplies:: No Equipment Needed Diet:: As Tolerated Discharge Orders Discharge Orders: Discharge Order (Routine); Ordered 11/01/23 Ordered By: Ascencion Regan DS: Summary Time Spent with Patient providing and/or coordinating discharge services: Greater than 30 minutes Status at Discharge Functional status at discharge: independent ambulation Overall status at discharge: patient is back to baseline Mental Status: mental status grossly normal Speech and Movement: speech and movement normal Mood: congruent mood Affect: normal affect Quality:SDOH Health Related Social Needs: Health related social needs inadequate housing Exam Narrative Exam Narrative: Chronically ill-appearing gentleman laying in bed in no acute distress, ANO x 4, heart regular rhythm, lungs clear to auscultation bilaterally, abdomen soft, obese, nontender, nondistended, bilateral BKA's with minimal edema Psych Mental Status: mental status grossly normal Speech and Movement: speech and movement normal Mood: congruent mood Affect: normal affect DS: Data Vitals/I&O Vitals and I&O: Vital Signs Temperature 97.2 F L 11/01/23 11:15 Temperature Source Tympanic 11/01/23 11:15 Pulse 90 11/01/23 11:15 Pulse Rhythm Regular 11/01/23 09:30 Pulse 97 H 10/29/23 09:16 Respiratory Rate 18 11/01/23 11:15 Respiratory Effort Normal, Non-Labored 11/01/23 09:30 Respiratory Depth Normal 11/01/23 09:30 Respiratory Pattern Normal 11/01/23 09:30 Blood Pressure 114/97 H 11/01/23 11:15 Blood Pressure Mean 91 10/29/23 09:16 Blood Pressure Position Supine 10/29/23 04:15 Pulse Oximetry 91 L 11/01/23 11:15 Oxygen Delivery Method Room Air 11/01/23 11:15 Oxygen Flow Rate 0 11/01/23 11:15 Pain Level 0 11/01/23 11:15 Comment Pt declines supplemental O2 via NC 10/30/23 03:46 Comment refusing nasal cannula 10/29/23 09:16 Intake & Output 10/31/23 11/01/23 11/01/23 17:59 05:59 17:59 Intake Total 660 / 660 660 / 1320 Output Total 900 / 900 1850 / 2750 Balance -240 / -240 -1190 / -1430 Intake: Oral 660 / 660 660 / 1320 Output: Urine 900 / 900 1850 / 2750 Other: Urine Color Light Mey Yellow Urine Appearance Clear Clear Clear Stool Size Moderate Stool Characteristics Formed Hard Data Completed and Pending Labs on day of discharge: Labs from last 24 hours 11/01/23 06:40 Sodium 134 L Potassium 4.6 Chloride 96 L Carbon Dioxide 28.4 Anion Gap 9.6 BUN 109 H* Creatinine 4.2 H* Est GFR (CKD-EPI 2020) 16.08 Glucose 217 H Calcium 8.1 L Magnesium 2.5 H PFSH All Active Problems (Updated 10/27/23 @ 20:43 by Darek Reynolds MD) DVT prophylaxis (Acute) Type 2 diabetes mellitus with proliferative diabetic retinopathy without macular edema, bilateral (Acute) COVID (Acute ~06/22/23) Edema (Acute) Hyperphosphatemia associated with renal failure (Acute) Decreased ambulation status (Acute) Scooter, for outside .. 4-wheel, for hill, grass & dog.. getting to basement shop and garage and acreage.. HCM and QOL .. and working for [employer]. CKD (chronic kidney disease) stage 4, GFR 15-29 ml/min (Acute) GFR @ 19-20 with elevated A1C, but @ risk of hypoglycemia.. CHANEL (acute kidney injury) (Acute) Improved with diuresis and hydration @ home, but high risk for repeat episodes CKD stage 3 secondary to diabetes (Chronic) CKDOctober 2022! 08/2019 Cr 1.74 ... Elevated in 2020 2' Inf/ABx/HyperGly .. [ ] re-check 03/2021! Hypertension associated with diabetes (Acute) Persistent proteinuria associated with type 2 diabetes mellitus (Acute) Hyperglycemia due to diabetes mellitus (Acute) Diabetes mellitus with complication in adult patient (Chronic) Type 2 diabetes mellitus with diabetic polyneuropathy (Acute) Iron deficiency (Acute) History of anemia (Chronic) Coronary artery disease (Chronic) w/ dilated cardiomyopathy and (+) stress test ++> PCI/Stenting, 12/29/21 Ischemic cardiomyopathy (Acute) w/ (+) stress test and PCI/Stenting, 12/29/21 ICD (implantable cardioverter-defibrillator) in place (Acute) ICD, single lead, Medtronic Visia 04/27/2018 [place], [place] CHF exacerbation (Acute) NYHA Class IV (12/29/21) [facility] Elevated brain natriuretic peptide (BNP) level (Acute) thought to be near baseline, but unclear Hx Low serum albumin (Chronic) Protein WNL per 02/2022 labs Chronic systolic CHF (congestive heart failure) (Acute) EF 20-25% per Jul 2023 Echo ([facility]) Pulmonary hypertension (Acute) 12/29/21. [id number]. Noted during Cardiac cath, [facility]. NYHA Class IV Dermatitis, unspecified (Acute ~11/2021) 12/07/21 Dermatology Chronic posttraumatic stress disorder (Acute) History of posttraumatic stress disorder (PTSD) (Acute) Long Hx, Restarted with counselor, Madison Harris. 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 Working with [employer] re: prosthetics.. Rt, November 2020. Lft, 2018 (?) GERD (gastroesophageal reflux disease) (Chronic) PPI COPD (chronic obstructive pulmonary disease) (Chronic) Hx smoker (~10pkyr), PFTs (04/17/21). Disability examination (Acute) PFTs, 04/2021 for Disability 2' COPD. Housing or economic problem (Acute) Nasal polyp (Acute) Pt report based on past ENT 06/02/[address] Haque - surgical correction planned Allergic rhinitis due to allergen (Acute) Nasal turbinate hypertrophy (Acute) Other chronic sinusitis (Acute) Deviated nasal septum (Acute) Seasonal allergies (Acute) Corneal opacification (Acute) OS Proliferative retinopathy of both eyes (Acute) Full PRP OD Vitamin D deficiency (Acute) Secondary hyperparathyroidism (Acute) Medical History SARS-CoV-2 positive (~04/14/22) Dehydration Hypercalcemia (~02/21/22) Elevated troponin Positive cardiac stress test 2021 .. Cath, with stent placement + 12/29/21. Edema of abdomen Neck pain acute .. due to sleeping on sofa?? coughing? Decreased range of motion (ROM) of right knee Flexion ok; Extension is difficult .. Continues to work with PT Psoriasis Carpal tunnel syndrome of left wrist Cubital bursitis of right elbow Diabetic foot ulcer associated with type 2 diabetes mellitus RESOLVED with amputation. 09/30/20-R heel w/cellulitis-Dr Kevin,DPM 10/16/20 Debridement by Podiatry 10/30/20 [facility] Vascular - RIGHT Heel Ulcer - cont close wound care by Podiatry Hx: recurrent pneumonia walking pneumonia most vines x 3 years Cervical neuropathy Tendonitis of long head of biceps brachii of right shoulder Bursitis of right shoulder Right shoulder pain Acute on chronic issue: now with elbow and hand pain (ulnar), with tingling. Finger pain, left Could this be gout? No injury. Trial Naproxen. Nasal polyps Erectile dysfunction Testicular cancer Surgical History S/P cardiac catheterization 12/29/21 [facility] (Dr. Jerry Ramírez). PCI (via R radial artery) of mid-LAD. Balloon angioplasty and lithotripsy. 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 History of amputation of left lower extremity History of amputation of great toe Right History of cardiac defibrillator placement History of cataract removal with insertion of prosthetic lens (~03/02/18) Right History of gastric bypass (~07/01/14) History of cystoscopy (~12/25/13) History of tonsillectomy (~1979) History of orchiectomy, unilateral (~06/1999) Right Family History Mother Diabetes Father Diabetes Heart disease Hypertension Sister Diabetes Brother Diabetes Brother Diabetes Heart disease Hypertension Social History Smoking/Tobacco Use Status: Former Tobacco Use Quit Date: 07/18/98 Tobacco: How many years used: 10 Smoking risk assessment performed?: Yes Alcohol Intake: current Alcohol Intake frequency: 0-2 drinks per day Alcohol type: hard liquor Drug use: Never Substance use type: does not use Adopted: No Caregiver/Support person: No Foster care: No Household members: significant other Housing: house Do you need help understanding health information?: Rarely current occupation: Unemployed Sexually active: Yes Do you think of yourself as: straight/heterosexual Current gender identity: male Do you feel safe at home: Yes (getting out of relationship) Do you feel safe in your relationship?: Yes Additional Social history: moving out Time Spent with Patient Time Spent with Patient: <45 minutes Time was spent: preparing to see the patient(eg.review tests), obtaining and/or reviewing separately otained hiistory, ordering medications,tests, procedures, referring, communicating with other health youth care worker, indepentently interpreting results, counseling the patient and care coordination
--- NOTE | 2023-11-01 13:17 | CMDISCH_ITS ---
Date of service: 11/01/23 Time of Service: 13:18 LACE Index Scoring Tool Questions: Length of Stay (in days): 4 - 6 Was the patient admitted via the E.D.?: Yes Comorbidities: Diabetes w/o Complication, Congestive Heart Failure, Chronic Pulmonary Disease, Any Tumor and Liver or Renal Disease E.D. Visits: 1 Answers: Total Score: 13 Risk of Readmission: High Risk Care Management Discharge Plan Reason for Hospitalization: CHF Discharge Plan: Anticipate Leroy will be discharged home with no new services when medically stable. He will follow up with his PCP and plan of care and transport via [facility] coordinated by CM. CM will follow and continue to assess for discharge needs. Patient/Family Education Needs: Review of discharge instructions, activity, limitations, follow up plan, discuss Ask Me Three Services Needed at Discharge: Transportation SDOH Health Related Social Needs: Health related social needs inadequate housing Health related social needs: inadequate housing(Z59.1)
--- NOTE | 2023-11-01 13:19 | PT.INNT ---
PT Notes Visit Reasons: Acute exacerbation of HFREF, elevated troponin MD discharged patient as of right now to home without any HH PT services. No PT services provided for this admission.
[2023-11-04 01:30] LABS: NT-proBNP 12193 pg/mL (<300)
== END 2023-11-01 13:47 | disposition home or self-care (01) | DRG 291 ==
LOC: ER 14:31 → ICU 22:16 → MS 10-29 10:33
PROVIDERS: Family Medicine; Admitting Provider Internal Medicine; Emergency Provider Emergency Medicine; PCP Student in an Organized Health Care Education/Training Program; Visit Provider Internal Medicine
DX: I50.23 Acute on chronic systolic (congestive) heart failure (principal); I13.0 Hypertensive heart and chronic kidney disease with heart failure and stage 1 through stage 4 chronic kidney disease, or unspecified chronic kidney disease; N18.4 Chronic kidney disease, stage 4 (severe); N17.9 Acute kidney failure, unspecified; N25.81 Secondary hyperparathyroidism of renal origin; Z68.42 Body mass index [BMI] 45.0-49.9, adult; I25.5 Ischemic cardiomyopathy; I25.10 Atherosclerotic heart disease of native coronary artery without angina pectoris; E11.3593 Type 2 diabetes mellitus with proliferative diabetic retinopathy without macular edema, bilateral; Z79.4 Long term (current) use of insulin; E11.22 Type 2 diabetes mellitus with diabetic chronic kidney disease; I27.20 Pulmonary hypertension, unspecified; I08.1 Rheumatic disorders of both mitral and tricuspid valves; Z85.47 Personal history of malignant neoplasm of testis; J44.9 Chronic obstructive pulmonary disease, unspecified; Z89.612 Acquired absence of left leg above knee; Z89.611 Acquired absence of right leg above knee; E11.42 Type 2 diabetes mellitus with diabetic polyneuropathy; E61.1 Iron deficiency; Z95.818 Presence of other cardiac implants and grafts; E55.9 Vitamin D deficiency, unspecified; L40.9 Psoriasis, unspecified; Z87.891 Personal history of nicotine dependence; E66.01 Morbid (severe) obesity due to excess calories; Z79.85 Long-term (current) use of injectable non-insulin antidiabetic drugs; M54.9 Dorsalgia, unspecified; G47.33 Obstructive sleep apnea (adult) (pediatric); F40.240 Claustrophobia; R74.8 Abnormal levels of other serum enzymes
CPT/HCPCS: 00123; 36415; 80048; 80053; 80061; 85027; 93005; 93308; 94640; 96374; 99291; 71045; 83735; 83880; 84484; 85025; 93010; 93306; 94664; 94760; 99222; 99232; 99233; 99238; J1205; J1644; J1815; J1885; J1940; J3490

== ENCOUNTER 2023-11-09 10:51 | Inpatient (IN) | payer BC, SELFPAY ==
[2023-11-09] VITALS (32 sets, daily range): BP systolic 96–169; BP diastolic 18–109; PULSE 68–92; RESP 13–27; TEMP 35.2–35.9; O2SAT 85–97
--- NOTE | 2023-11-09 10:30 | RT.EKG_ITS ---
APPROVED REPORT Exam: Resting ECG Reason for Exam: SOB Patient Location: E HR:88 bpm ECG Measurements Heart Rate 88 AXIS ME 213 P 27 QRSd 112 QRS 108 QT 373 T 226 QTc 451 Conclusion Sinus rhythm...normal P axis, V-rate 60- 99 Prolonged ME interval...ME >210, V-rate 50- 90 Probable left atrial enlargement...P >50mS, <-0.10mV V1 Incomplete right bundle branch block...QRSd >112, terminal axis(90,270) Low voltage, extremity leads...all extremity leads <0.5mV Nonspecific T abnormalities, lateral leads...T <-0.10mV, I aVL V5 V6 sinus rhtyhm, low voltage, normal axis, consider RBBB
--- NOTE | 2023-11-09 11:00 | DI.RAD_ITS ---
Exam(s) XR CHEST 2V PA LATERAL EXAM: XR CHEST 2V PA LATERAL CLINICAL HISTORY: shortness of breath hx chf, copd TECHNIQUE: 2D digital imaging was performed of the chest. Two images were obtained. PA and lateral views were obtained. COMPARISON: CR XR CHEST 2V PA LATERAL from 08/22/2020 CR,XR XR PORTABLE CHEST AP from 12/14/2021 CR XR CHEST 2V PA LATERAL from 02/19/2022 CR XR PORTABLE CHEST AP from 10/27/2023 FINDINGS: Examination limited by patient body habitus and poor inspiration.There is motion on the lateral view. MEDIASTINUM: Normal. HEART: Stable mild cardiomegaly. Cardiac device is in place. PULMONARY VASCULATURE: Normal. LUNGS: No focal consolidating infiltrates are seen. Increased lung markings are seen in the posterio r constant phrenic angle on the lateral view. It has a similar appearance and may be chronic. A dev eloping pneumonia cannot be excluded. PLEURAL SPACE: No pleural effusion or pneumothorax. BONE:Within normal limits for the patient's age. OTHER FINDINGS:Normal. IMPRESSION: 1. Stable cardiomegaly. 2. On the lateral view, chronic parenchymal changes versus developing pneumonia or atelectasis. Plea se correlate clinically. DATA REPOSITORY: RADIATION DOSE DELIVERED:
--- NOTE | 2023-11-09 11:08 | W.ED.GENAD ---
Discharge Plan Disposition Patient Disposition: Admit to [facility] Condition: Stable Discharge Details Chief Complaint: GenMedical Clinical Impression: CHF (congestive heart failure), CKD (chronic kidney disease) Primary Care Provider: Candice Perez ED Provider: Irineo Cooley Home Meds and New Rx's Prescriptions: No Action (DME) Left Outer Sleeve See Rx Instructions .Route .MEDSUPPLY Qty: 1 0RF Rx Instructions: As directed (DME) Right prosthetic socket See Rx Instructions .Route .MEDSUPPLY Qty: 1 0RF Rx Instructions: As directed (DME) glucometer WITH MATCHING TEST STRIPS See Rx Instructions .Route .MEDSUPPLY Qty: 1 0RF Rx Instructions: Using TID until CGM available, then as back-up (DME) lancets Misc See Rx Instructions .ROUTE .MEDSUPPLY Qty: 300 3RF Rx Instructions: To check blood glucose three times daily. On insulin. Dispense covered brand. (DME) Sleeve, Left BKA See Rx Instructions .Route .MEDSUPPLY Qty: 1 0RF Rx Instructions: Per measure & fit by [employer] (DME) Sleeve, Right BKA See Rx Instructions .Route .MEDSUPPLY Qty: 1 0RF Rx Instructions: Per measure & fit by [employer] (DME) Dexcom G7 Sensor Device See Rx Instructions .Route Qty: 3 11RF Rx Instructions: For A1C < 7.5, DM E11.8 (36 per year) (DME) Dexcom G7 Coil Winding Machines Set Up Mechanic Misc See Rx Instructions .Route Qty: 1 3RF Rx Instructions: As directed to manage DM, E11.8 - 36 Sensors/year. A1C < 7.5 multivitamin with iron Tablet 1 tab PO DAILY Qty: 90 3RF Rx Instructions: Take one tablet daily by mouth spironolactone 50 mg tablet 50 mg PO DAILY Qty: 90 2RF Rx Instructions: Continue (with possible BID use if torsemide increased 2' acute edema) ferrous sulfate 325 mg (65 mg iron) tablet 325 mg PO DAILY Rx Instructions: [facility] Billing Department Supervisor (DME) Amputation Compression Sleeve See Rx Instructions .Route .MEDSUPPLY Qty: 1 0RF Rx Instructions: Please provide and fit a compression sleeve to the left BKA stump for appropriate prosthesis wear. (DME) fore arm cuff crutches See Rx Instructions .Route .MEDSUPPLY Qty: 1 0RF Rx Instructions: dispense 1 pair nicotine (polacrilex) [Nicorette] 2 mg lozenge 2 mg buccal Q6H PRN (Reason: nicotine cravings) Qty: 108 1RF Hold Instructions: Home Medication placed on hold at Doctor's office halobetasol propionate 0.05 % cream 1 applic topical DAILY PRN Hold Instructions: Home Medication placed on hold at Doctor's office Rx Instructions: 12/07/21 apply 1-2x/day qd for 7-14 days, then 1 week off, and repeat as needed acetaminophen 325 mg tablet 650 mg PO Q4H PRN (Reason: fever or pain) Qty: 180 1RF azelastine 137 mcg (0.1 %) aerosol,spray See Rx Instructions intranasal BID Qty: 30 1RF Rx Instructions: 1-2 sprays intranasal twice a day; administer into each nostril (DME) FreeStyle Luis 2 [place] Misc See Rx Instructions .ROUTE .MEDSUPPLY Qty: 1 0RF Hold Instructions: Home Medication placed on hold at Doctor's office Rx Instructions: As directed (DME) FreeStyle Luis 2 Sensor Kit See Rx Instructions .ROUTE .MEDSUPPLY Qty: 6 3RF Hold Instructions: Home Medication placed on hold at Doctor's office Rx Instructions: As directed fluticasone propion-salmeterol [Advair Diskus] 250-50 mcg/dose blister with device 1 inh inhalation BID Qty: 60 0RF levalbuterol tartrate 45 mcg/actuation HFA aerosol inhaler 2 inh inhalation Q6H PRN PRN (Reason: shortness of breath or wheezing) Qty: 15 0RF silver sulfadiazine 1 % cream 1 applic topical BID Qty: 400 3RF Hold Instructions: Home Medication placed on hold at Doctor's office Rx Instructions: apply a 1.5 mm thickness to lower leg surgical site clobetasol 0.05 % spray,non-aerosol 1 applic topical BID 7 Days Qty: 59 1RF Rx Instructions: not to exceed 26 sprays per single application fluticasone propionate [Allergy Relief (fluticasone)] 50 mcg/actuation spray,suspension 1 spray intranasal DAILY Qty: 16 1RF Rx Instructions: administer into each nostril carvedilol 12.5 mg tablet 12.5 mg PO BID Qty: 180 3RF Rx Instructions: must administer with a meal/food aspirin 81 mg tablet,delayed release (DR/EC) 81 mg PO DAILY Qty: 90 3RF atorvastatin 10 mg tablet 10 mg PO DAILY Qty: 90 3RF cetirizine 10 mg tablet 10 mg PO DAILY Qty: 90 3RF cholecalciferol (vitamin D3) 25 mcg (1,000 unit) capsule 25 mcg PO DAILY Qty: 90 3RF cyanocobalamin (vitamin B-12) 1,000 mcg capsule 1,000 mcg PO DAILY Qty: 90 3RF (DME) Contour Test Strips Strip See Rx Instructions .Route Qty: 100 2RF Rx Instructions: DX E11.9 Check BS TID use as back up if CGM fails. pantoprazole 40 mg tablet,delayed release (DR/EC) 40 mg PO DAILY Qty: 90 3RF clopidogrel 75 mg tablet 75 mg PO DAILY Qty: 30 5RF Rx Instructions: take separately from reflux medication. guaifenesin 600 mg tablet extended release 12hr 600 mg PO BID Qty: 20 1RF Farxiga 5 mg tablet See Rx Instructions .ROUTE .COMPLEX Qty: 28 10RF Dose Instruction: TAKE 1 TABLET BY MOUTH DAILY FOR TYPE 2 DIABETES MELLITUS NOT AT GOAL, STAGE 3 CKD Rx Instructions: TAKE 1 TABLET BY MOUTH DAILY FOR TYPE 2 DIABETES MELLITUS NOT AT GOAL, STAGE 3 CKD ascorbic acid (vitamin C) 1,000 mg tablet 500 mg PO DAILY Qty: 90 3RF Rx Instructions: Doses exceeding 500mg daily will invalidate CGM sensor. 02/04/22 EO insulin lispro [Humalog KwikPen Insulin] 100 unit/mL insulin pen 1 sliding scale dose subcut USEASDIRECTD MDD 50 units Qty: 15 3RF Rx Instructions: [facility] Endo - current correction of 1u:30mg/dl, starting at 130mg/dl per pt. 01/06/21 Spiriva Respimat 2.5 mcg/actuation mist See Rx Instructions .ROUTE .COMPLEX Qty: 4 3RF Dose Instruction: INHALE 2 PUFFS BY MOUTH DAILY Rx Instructions: INHALE 2 PUFFS BY MOUTH DAILY Ozempic 0.25 mg or 0.5 mg (2 mg/3 mL) pen injector 0.5 mg subcut QWEEK Qty: 3 2RF Rx Instructions: for 4 weeks minimum; may increase to 1mg (TBD with CDE/Pharmacist or PCP) (DME) pen needle, diabetic [BD Ultra-Fine Mini Pen Needle] 31 gauge x 3/16 needle See Rx Instructions .Route Qty: 300 3RF Rx Instructions: As directed for injecting Lantus/humalog to maintain A1C < 7, DM E11.8 insulin glargine [Lantus Solostar U-100 Insulin] 100 unit/mL (3 mL) insulin pen 35 unit subcut QPM Qty: 35 3RF torsemide 20 mg tablet 100 mg PO DAILY Hold Instructions: Resume on 11/15/23. hold until you see your PCP or restart if you notice worsening of your LE edema Rx Instructions: Rx changed 07/21/23 torsemide 20 mg tablet See Rx Instructions PO DAILY PRN (Reason: acute edema, abd swelling, dyspnea (MAY NEED LABS)) Qty: 100 1RF Hold Instructions: Resume on 11/15/23. hold until you see your PCP or restart if you notice worsening of your LE edema Rx Instructions: Additional 1-4 tabs, based on weight gain & d/w PCP orally daily PRN; Special EXTRA dose, per d/w Med Team Dupixent Syringe 300 mg/2 mL syringe 300 mg SUBCUT Q2W HPI General Date/Time Provider Initiated Documentation: 11/09/23 10:53. HPI Narrative: 53-year-old male presents with shortness of breath, recent admission for CHF and diuresis, was taken off of his torsemide as he had worsening kidney function from diuresis, has felt fluid overloaded over the last couple of days. Denies chest pain nausea vomiting fevers chills or other systemic signs of illness. Related Data Home Medications Medication Instructions Recorded Confirmed Amputation Compression Sleeve #1 ea 01/26/21 11/09/23 fore arm cuff crutches #1 ea 06/07/21 11/09/23 nicotine (polacrilex) 2 mg buccal 2 mg buccal Q6H PRN nicotine 06/16/21 11/09/23 lozenge (Nicorette) cravings #108 ea Left Outer Sleeve #1 ea 12/07/21 11/09/23 halobetasol propionate 0.05 % 1 applic topical DAILY PRN 12/15/21 11/09/23 topical cream acetaminophen 325 mg tablet 650 mg (2 x 325 mg) PO Q4H PRN 04/02/22 11/09/23 fever or pain #180 tabs azelastine 137 mcg (0.1 %) nasal See Rx Instructions intranasal BID 04/02/22 11/09/23 spray aerosol #30 mL flash glucose scanning reader #1 ea 04/02/22 11/09/23 (FreeStyle Luis 2 [place]) flash glucose sensor (FreeStyle #6 ea 04/02/22 11/09/23 Luis 2 Sensor kit) fluticasone 250 mcg-salmeterol 50 1 inh inhalation BID #60 ea 04/02/22 11/09/23 mcg/dose blistr powdr for inhalation (Advair Diskus) levalbuterol tartrate 45 2 inh inhalation Q6H PRN PRN 04/02/22 11/09/23 mcg/actuation aerosol inhaler shortness of breath or wheezing #15 grams silver sulfadiazine 1 % topical 1 applic topical BID #400 grams 04/02/22 11/09/23 cream Right prosthetic socket #1 ea 05/13/22 11/09/23 clobetasol 0.05 % topical spray 1 applic topical BID 1 week #59 mL 08/19/22 11/09/23 fluticasone propionate 50 1 spray intranasal DAILY #16 grams 12/02/22 11/09/23 mcg/actuation nasal spray,suspension (Allergy Relief (fluticasone)) blood-glucose meter,continuous #1 ea 01/25/23 11/09/23 (Dexcom G7 Coil Winding Machines Set Up Mechanic) blood-glucose sensor (Dexcom G7 #3 ea 01/25/23 11/09/23 Sensor device) multivitamin with iron 1 tab PO DAILY #90 tabs 02/14/23 11/09/23 aspirin 81 mg tablet,delayed 81 mg PO DAILY #90 tabs 02/23/23 11/09/23 release atorvastatin 10 mg tablet 10 mg PO DAILY #90 tabs 02/23/23 11/09/23 carvedilol 12.5 mg tablet 12.5 mg PO BID #180 tabs 02/23/23 11/09/23 cetirizine 10 mg tablet 10 mg PO DAILY #90 tabs 02/23/23 11/09/23 cholecalciferol (vitamin D3) 25 25 mcg PO DAILY #90 caps 02/23/23 11/09/23 mcg (1,000 unit) capsule cyanocobalamin (vitamin B-12) 1,000 mcg PO DAILY #90 caps 02/23/23 11/09/23 1,000 mcg capsule glucometer WITH MATCHING TEST #1 ea 03/10/23 11/09/23 STRIPS lancets #300 ea 03/10/23 11/09/23 blood sugar diagnostic (Contour #100 ea 03/18/23 11/09/23 Test Strips) pantoprazole 40 mg tablet,delayed 40 mg PO DAILY #90 tabs 05/22/23 11/09/23 release clopidogrel 75 mg tablet 75 mg PO DAILY #30 tabs 06/17/23 11/09/23 spironolactone 50 mg tablet 50 mg PO DAILY #90 tabs 06/18/23 11/09/23 guaifenesin 600 mg tablet, 600 mg PO BID #20 tabs 06/24/23 11/09/23 extended release 12 hr ferrous sulfate 325 mg (65 mg 325 mg PO DAILY 08/01/23 11/09/23 iron) tablet ascorbic acid (vitamin C) 1,000 mg 500 mg (1/2 x 1,000 mg) PO DAILY 08/09/23 11/09/23 tablet #90 tabs dapagliflozin propanediol 5 mg See Rx Instructions .Route 08/09/23 11/09/23 tablet (Farxiga) .COMPLEX #28 tabs insulin lispro 100 unit/mL 1 sliding scale dose subcut 09/18/23 11/09/23 subcutaneous pen (Humalog KwikPen USEASDIRECTD DM, E11.8 .. to jeep (U-100) Insulin) A1C < 7.5 #15 mL tiotropium bromide 2.5 See Rx Instructions .Route 10/10/23 11/09/23 mcg/actuation mist for inhalation .COMPLEX #4 grams (Spiriva Respimat) semaglutide 0.25 mg or 0.5 mg (2 0.5 mg (0.736 mL) subcut QWEEK #3 10/12/23 11/09/23 mg/3 mL) subcutaneous pen injector mL (Ozempic) Sleeve, Left BKA #1 ea 10/15/23 11/09/23 Sleeve, Right BKA #1 ea 10/15/23 11/09/23 insulin glargine 100 unit/mL (3 35 unit (0.35 mL) subcut QPM #35 mL 10/20/23 11/09/23 mL) subcutaneous pen (Lantus Solostar U-100 Insulin) pen needle, diabetic 31 gauge x #300 ea 10/20/23 11/09/23 3/16 (BD Ultra-Fine Mini Pen Needle) torsemide 20 mg tablet 100 mg PO DAILY 10/21/23 11/09/23 torsemide 20 mg tablet See Rx Instructions PO DAILY PRN 10/21/23 11/09/23 acute edema, abd swelling, dyspnea (MAY NEED LABS) #100 tabs dupilumab 300 mg/2 mL subcutaneous 300 mg subcut Q2W 10/29/23 11/09/23 syringe (Dupixent) Previous Rx's Medication Instructions Recorded Amputation Compression Sleeve #1 ea 01/26/21 fore arm cuff crutches #1 ea 06/07/21 nicotine (polacrilex) 2 mg buccal 2 mg buccal Q6H PRN nicotine 06/16/21 lozenge (Nicorette) cravings #108 ea Left Outer Sleeve #1 ea 12/07/21 acetaminophen 325 mg tablet 650 mg (2 x 325 mg) PO Q4H PRN 04/02/22 fever or pain #180 tabs azelastine 137 mcg (0.1 %) nasal See Rx Instructions intranasal BID 04/02/22 spray aerosol #30 mL flash glucose scanning reader #1 ea 04/02/22 (FreeStyle Luis 2 [place]) flash glucose sensor (FreeStyle #6 ea 04/02/22 Luis 2 Sensor kit) fluticasone 250 mcg-salmeterol 50 1 inh inhalation BID #60 ea 04/02/22 mcg/dose blistr powdr for inhalation (Advair Diskus) levalbuterol tartrate 45 2 inh inhalation Q6H PRN PRN 04/02/22 mcg/actuation aerosol inhaler shortness of breath or wheezing #15 grams silver sulfadiazine 1 % topical 1 applic topical BID #400 grams 04/02/22 cream Right prosthetic socket #1 ea 05/13/22 clobetasol 0.05 % topical spray 1 applic topical BID 1 week #59 mL 02/02/23 fluticasone propionate 50 1 spray intranasal DAILY #16 grams 12/02/22 mcg/actuation nasal spray,suspension (Allergy Relief (fluticasone)) blood-glucose meter,continuous #1 ea 01/25/23 (Dexcom G7 Coil Winding Machines Set Up Mechanic) blood-glucose sensor (Dexcom G7 #3 ea 01/25/23 Sensor device) multivitamin with iron 1 tab PO DAILY #90 tabs 02/14/23 aspirin 81 mg tablet,delayed 81 mg PO DAILY #90 tabs 02/23/23 release atorvastatin 10 mg tablet 10 mg PO DAILY #90 tabs 02/23/23 carvedilol 12.5 mg tablet 12.5 mg PO BID #180 tabs 02/23/23 cetirizine 10 mg tablet 10 mg PO DAILY #90 tabs 02/23/23 cholecalciferol (vitamin D3) 25 25 mcg PO DAILY #90 caps 02/23/23 mcg (1,000 unit) capsule cyanocobalamin (vitamin B-12) 1,000 mcg PO DAILY #90 caps 02/23/23 1,000 mcg capsule glucometer WITH MATCHING TEST #1 ea 03/10/23 STRIPS lancets #300 ea 03/10/23 blood sugar diagnostic (Contour #100 ea 03/18/23 Test Strips) pantoprazole 40 mg tablet,delayed 40 mg PO DAILY #90 tabs 05/22/23 release clopidogrel 75 mg tablet 75 mg PO DAILY #30 tabs 06/17/23 spironolactone 50 mg tablet 50 mg PO DAILY #90 tabs 06/18/23 guaifenesin 600 mg tablet, 600 mg PO BID #20 tabs 06/24/23 extended release 12 hr ascorbic acid (vitamin C) 1,000 mg 500 mg (1/2 x 1,000 mg) PO DAILY 08/09/23 tablet #90 tabs dapagliflozin propanediol 5 mg See Rx Instructions .Route 08/09/23 tablet (Farxiga) .COMPLEX #28 tabs insulin lispro 100 unit/mL 1 sliding scale dose subcut 09/18/23 subcutaneous pen (Humalog KwikPen USEASDIRECTD DM, E11.8 .. to jeep (U-100) Insulin) A1C < 7.5 #15 mL tiotropium bromide 2.5 See Rx Instructions .Route 10/10/23 mcg/actuation mist for inhalation .COMPLEX #4 grams (Spiriva Respimat) semaglutide 0.25 mg or 0.5 mg (2 0.5 mg (0.736 mL) subcut QWEEK #3 10/12/23 mg/3 mL) subcutaneous pen injector mL (Ozempic) Sleeve, Left BKA #1 ea 10/15/23 Sleeve, Right BKA #1 ea 10/15/23 insulin glargine 100 unit/mL (3 35 unit (0.35 mL) subcut QPM #35 mL 10/20/23 mL) subcutaneous pen (Lantus Solostar U-100 Insulin) pen needle, diabetic 31 gauge x #300 ea 10/20/23/ (BD Ultra-Fine Mini Pen Needle) torsemide 20 mg tablet See Rx Instructions PO DAILY PRN 10/21/23 acute edema, abd swelling, dyspnea (MAY NEED LABS) #100 tabs Allergies Allergy/AdvReac Type Severity Reaction Status Date / Time tramadol AdvReac Severe renal Verified 10/27/23 11:26 failure insulin aspart AdvReac Mild HypOglycemi Verified 10/27/23 11:26 a Poor Renal Function AdvReac Unknown renal Uncoded 10/27/23 11:26 failure General Stated Complaint: GenMedical RAMON: 3 Review of Systems Narrative: Review of Systems Constitutional: negative Eyes: negative ENT: negative Cardiovascular: negative Respiratory: Shortness of breath Gastrointestinal: negative : negative Musculoskeletal: negative Skin: negative Neurologic: negative Psych: negative Exam Narrative Exam Narrative: Physical Examination General: alert, awake, cooperative, resting comfortably, no acute distress HEENT: normocephalic, atraumatic; PERRL, EOM intact, conjunctiva normal; no nasal discharge; moist mucous membranes, oral and pharyngeal mucosa normal, tolerating secretions Neck: supple, trachea midline; full ROM Chest: normal to inspection Respiratory: normal respiratory effort, speaking in full sentences, clear to auscultation, no wheezing, rales or rhonchi Cardiac: regular rate, regular rhythm, S1S2 intact, no murmurs rubs or gallops GI: abdomen soft, non-tender, non-distended; no palpable mass or hepatosplenomegaly Skin: no lesions, rashes or trauma appreciated Neuro: AAOx3, normal speech, moving all extremities Psych: Appropriate mood and affect Course Vital Signs Vital signs: Vital Signs Temperature 35.8 C L 11/09/23 10:46 Pulse 88 11/09/23 10:46 Respiratory Rate 13 11/09/23 10:46 Blood Pressure 97/68 L 11/09/23 10:46 Pulse Oximetry 96 11/09/23 10:46 Temperature 35.8 C L 11/09/23 10:46 Temperature Source Skin 11/09/23 10:46 Pulse 88 11/09/23 10:46 Respiratory Rate 13 11/09/23 10:46 Blood Pressure 97/68 L 11/09/23 10:46 Pulse Oximetry 96 11/09/23 10:46 Oxygen Delivery Method Room Air 11/09/23 10:46 Oxygen Flow Rate 0 11/09/23 10:46 Pain Level 0 11/09/23 10:46 Medical Decision Making 53-year-old male history of CKD diabetes, bilateral BKA, recent mission for CHF presents with worsening shortness of breath and sensation of fluid overload state in the setting of not taking his torsemide. Torsemide was discontinued upon discharge as patient's creatinine had elevated. No history of dialysis, still makes urine however his urine output has decreased since stopping his diuretic. Scattered B-lines on bedside ultrasound suggestive of early pulmonary edema, no hypoxia no tachypnea, lungs clear, will obtain basic labs troponin BNP, chest x-ray, will likely start furosemide here in department. Disposition pending reassessment of symptoms. 12: 12 evidence of worsening CKD uptrending creatinine to 5.2 BUN of 139, elevated troponin likely related to renal dysfunction, despite x-ray read as negative patient does have some scattered B-lines on bedside ultrasound and feels subjectively fluid overloaded, has had progressive decrease in urine output over the past several days to week in the setting of not taking torsemide. Concern for imminent need for dialysis, reached out to his nephrology team at [facility] awaiting callback 13: 35 discussed case with patient's primary other sports official at [facility] Dr. Alba who recommends greatly increasing furosemide dose consider 100 mg to 160 mg boluses. Recommends continued diuresis, would like to follow-up with patient upon discharge. Patient did have low SpO2 readings in the high 80s/low 90s, now holding mid 90s without supplemental oxygen. Quality:SDOH Health Related Social Needs: Health related social needs inadequate housing PFSH All Active Problems (Updated 11/09/23 @ 13:37 by Irineo Cooley MD) CKD (chronic kidney disease) (Chronic) CHF (congestive heart failure) (Chronic) Type 2 diabetes mellitus with proliferative diabetic retinopathy without macular edema, bilateral (Acute) COVID (Acute ~06/22/23) Edema (Acute) Hyperphosphatemia associated with renal failure (Acute) Decreased ambulation status (Acute) Scooter, for outside .. 4-wheel, for hill, grass & dog.. getting to basement shop and garage and acreage.. HCM and QOL .. and working for [employer]. CKD (chronic kidney disease) stage 4, GFR 15-29 ml/min (Acute) GFR @ 19-20 with elevated A1C, but @ risk of hypoglycemia.. CHANEL (acute kidney injury) (Acute) Improved with diuresis and hydration @ home, but high risk for repeat episodes CKD stage 3 secondary to diabetes (Chronic) CKDOctober 2022! 08/2019 Cr 1.74 ... Elevated in 2020 2' Inf/ABx/HyperGly .. [ ] re-check 03/2021! Hypertension associated with diabetes (Acute) Persistent proteinuria associated with type 2 diabetes mellitus (Acute) Hyperglycemia due to diabetes mellitus (Acute) Diabetes mellitus with complication in adult patient (Chronic) Type 2 diabetes mellitus with diabetic polyneuropathy (Acute) Iron deficiency (Acute) History of anemia (Chronic) Coronary artery disease (Chronic) w/ dilated cardiomyopathy and (+) stress test ++> PCI/Stenting, 12/29/21 Ischemic cardiomyopathy (Acute) w/ (+) stress test and PCI/Stenting, 12/29/21 ICD (implantable cardioverter-defibrillator) in place (Acute) ICD, single lead, Medtronic Visia 04/27/2018 [place], [place] Elevated brain natriuretic peptide (BNP) level (Acute) thought to be near baseline, but unclear Hx Low serum albumin (Chronic) Protein WNL per 02/2022 labs Chronic systolic CHF (congestive heart failure) (Acute) EF 20-25% per Jul 2023 Echo ([facility]) Pulmonary hypertension (Acute) 12/29/21. [id number]. Noted during Cardiac cath, [facility]. NYHA Class IV Dermatitis, unspecified (Acute ~11/2021) 12/07/21 Dermatology Chronic posttraumatic stress disorder (Acute) History of posttraumatic stress disorder (PTSD) (Acute) Long Hx, Restarted with counselor, Madison Harris. 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 Rt, November 2020. Lft, 2018 (?) GERD (gastroesophageal reflux disease) (Chronic) PPI COPD (chronic obstructive pulmonary disease) (Chronic) Hx smoker (~10pkyr), PFTs (04/17/21). Disability examination (Acute) PFTs, 04/2021 for Disability 2' COPD. Housing or economic problem (Acute) Nasal polyp (Acute) Pt report based on past ENT 06/02/[address] Haque - surgical correction planned Allergic rhinitis due to allergen (Acute) Nasal turbinate hypertrophy (Acute) Other chronic sinusitis (Acute) Deviated nasal septum (Acute) Seasonal allergies (Acute) Corneal opacification (Acute) OS Proliferative retinopathy of both eyes (Acute) Full PRP OD Vitamin D deficiency (Acute) Secondary hyperparathyroidism (Acute) Medical History SARS-CoV-2 positive (~04/14/22) Dehydration Hypercalcemia (~02/21/22) Elevated troponin Positive cardiac stress test 2021 .. Cath, with stent placement + 12/29/21. Edema of abdomen Neck pain acute .. due to sleeping on sofa?? coughing? Decreased range of motion (ROM) of right knee Flexion ok; Extension is difficult .. Continues to work with PT Psoriasis Carpal tunnel syndrome of left wrist Cubital bursitis of right elbow Diabetic foot ulcer associated with type 2 diabetes mellitus RESOLVED with amputation. 09/30/20-R heel w/cellulitis-Dr Kevin,DPDilia 10/16/20 Debridement by Podiatry 10/30/20 [facility] Vascular - RIGHT Heel Ulcer - cont close wound care by Podiatry Hx: recurrent pneumonia walking pneumonia most vines x 3 years Cervical neuropathy Tendonitis of long head of biceps brachii of right shoulder Bursitis of right shoulder Right shoulder pain Acute on chronic issue: now with elbow and hand pain (ulnar), with tingling. Finger pain, left Could this be gout? No injury. Trial Naproxen. Nasal polyps Erectile dysfunction Testicular cancer Surgical History S/P cardiac catheterization 12/29/21 [facility] (Dr. Jerry Ramírez). PCI (via R radial artery) of mid-LAD. Balloon angioplasty and lithotripsy. 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 History of amputation of left lower extremity History of amputation of great toe Right History of cardiac defibrillator placement History of cataract removal with insertion of prosthetic lens (~03/02/18) Right History of gastric bypass (~07/01/14) History of cystoscopy (~12/25/13) History of tonsillectomy (~1979) History of orchiectomy, unilateral (~06/1999) Right Family History Mother Diabetes Father Diabetes Heart disease Hypertension Sister Diabetes Brother Diabetes Brother Diabetes Heart disease Hypertension Social History Smoking/Tobacco Use Status: Former Tobacco Use Quit Date: 07/18/98 Tobacco: How many years used: 10 Smoking risk assessment performed?: Yes Alcohol Intake: current Alcohol Intake frequency: 0-2 drinks per day Alcohol type: hard liquor Drug use: Never Substance use type: does not use Adopted: No Caregiver/Support person: No Foster care: No Household members: significant other Housing: house Do you need help understanding health information?: Rarely current occupation: Unemployed Sexually active: Yes Do you think of yourself as: straight/heterosexual Current gender identity: male Do you feel safe at home: Yes (getting out of relationship) Do you feel safe in your relationship?: Yes Additional Social history: moving out
[2023-11-09 11:12] LABS: Abs Immature Grans 0.03 10^3/uL (0.0-0.06); Absolute Basophil Count 0.04 10^3/uL (0.0-0.2); Absolute Eosinophil Count 0.31 10^3/uL (0.0-0.7); Absolute Lymphocyte Count 0.81 10^3/uL (1.2-3.4); Absolute Monocyte Count 0.85 10^3/uL (0.1-0.8); Absolute Neutrophil Count 7.85 10^3/uL (1.2-6.7); Basophils % 0.4; Eosinophils % 3.1; HCT 45.5 % (40.0-50.0); HGB 14.4 g/dL (13.5-17.5); Immature Grans % 0.3; Lymphocytes % 8.2; MCH 32.1 pg (27.0-33.0); MCHC 31.6 % (32.0-36.0); MCV 102 fL (80-95); MPV 11.2 fL (8.0-11.0); Monocytes % 8.6; Neutrophils % 79.4; Nucleated RBC 0.3 % (0.0-0.3); Platelet Count 187 10^3/uL (130-400); RBC 4.48 10^6/uL (4.36-5.78); RDW 15.5 % (11.8-14.1); RDW-SD 57.7 fL; WBC 9.89 10^3/uL (4.4-10.8)
[2023-11-09 11:25] LABS: INR 1.2 (0.9-1.1); PTT Activated 26.5 sec (23.6-32.8); Prothrombin Time 11.7 sec (9.1-11.1)
[2023-11-09 11:34] LABS: ALT 38 U/L (16-63); AST 22 U/L (15-37); Albumin 2.9 g/dL (3.4-5.0); Alkaline Phosphatase 139 U/L (46-116); Anion Gap 13.5 mmol/L (3-11); Bilirubin, Total 0.4 mg/dL (0.2-1.0); CO2 25.5 mmol/L (21.0-32.0); Calcium 8.3 mg/dL (8.5-10.1); Chloride 99 mmol/L (98-107); Estimated GFR 12.45 (mL/min/1.73m2); Glucose 183 mg/dL (74-106); Potassium 4.9 mmol/L (3.5-5.1); Sodium 138 mmol/L (136-145); Total Protein 6.7 g/dL (6.4-8.2)
[2023-11-09 11:35] LABS: CREATININE 5.2 mg/dL (0.70-1.30)
[2023-11-09 11:37] LABS: Troponin I 348 ng/L (< or =60)
[2023-11-09 12:01] LABS: COVID-19 PCR Negative (Negative); Influenza A PCR Negative (Negative); Influenza B PCR Negative (Negative); RSV PCR Negative (Negative)
[2023-11-09 12:03] LABS: Source Nasopharynx
[2023-11-09] MEDS: Furosemide 100 MG/10 ML VIAL IVP ×2 (12:49→16:37)
[2023-11-09 12:53] LABS: NT-proBNP > 35000 pg/mL (<300)
[2023-11-09 14:24] LABS: BUN 139 mg/dL (7-18)
[2023-11-09 15:06] LABS: Troponin I 334 ng/L (< or =60)
--- NOTE | 2023-11-09 15:09 | HPE_ITS ---
Date of service: 11/09/23 Time of Service: 15:09 Assessment and Plan Assessment and plan (1) Acute on chronic systolic heart failure: Status: Acute Assessment and plan: -responding well to IV diuresis given in ED, will continue with lasix 100 mg IV BID I&O and daily weights. Will hold spironolactone his potassium levels 4.9 -formal TTE last admission confirms EF <25% with bilateral atrial and ventricular dilation (2) Ischemic cardiomyopathy: Status: Acute Assessment and plan: -troponin I levels stable at 348 and 334, no ischemic pain or dyspnea and with no new EKG changes, no further monitoring unless indicated (3) Coronary artery disease: Status: Chronic Assessment and plan: -stable, as above, continue home meds of atorvastatin, aspirin. Qualifiers: Associated angina: without angina Coronary Disease-Associated Artery/Lesion type: [place] artery [place] vs. 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 -f/u AM BMP (6) DVT prophylaxis: Status: Acute Assessment and plan: heparin subcutaneously for DVT prophylaxis. (7) Discharge planning issues: Status: Acute Assessment and plan: anticipate discharge to home when medically stable. discussed with DR Cuello History of Present Illness History of Present Illness Chief Complaint: Shortness of breath Narrative: Presents to the emergency department for evaluation of increased shortness of breath and weight gain. Recently here and was diuresed but when discharged creatinine was rising so was advised to hold his dose until discussed with outpatient team or he started retaining fluid again. His workup in the emergency department was consistent with fluid overload he had no oxygen requirements his weight was up approximately 40 pounds since discharge he received 100 mg of IV Lasix with good diuretic effect. Hospitalist service was requested to admit for further diuresis and monitoring. Hemodynamically he has been stable creatinine is elevated at 5.2 with BUN at 136. His potassium was 4.9 Review of Systems All systems reviewed & are unremarkable except as noted in HPI and below PFSH All Active Problems (Updated 11/09/23 @ 15:45 by Merle Murphy, MAMIE) Discharge planning issues (Acute) CKD (chronic kidney disease) (Chronic) CHF (congestive heart failure) (Chronic) DVT prophylaxis (Acute) Acute on chronic systolic heart failure (Acute) Hospitalized, 12/2021, x2 .. with successful diuresis. Type 2 diabetes mellitus with proliferative diabetic retinopathy without macular edema, bilateral (Acute) COVID (Acute ~06/22/23) Edema (Acute) Hyperphosphatemia associated with renal failure (Acute) Decreased ambulation status (Acute) Scooter, for outside .. 4-wheel, for hill, grass & dog.. getting to basement shop and garage and acreage.. HCM and QOL .. and working for [employer]. CKD (chronic kidney disease) stage 4, GFR 15-29 ml/min (Acute) GFR @ 19-20 with elevated A1C, but @ risk of hypoglycemia.. CHANEL (acute kidney injury) (Acute) Improved with diuresis and hydration @ home, but high risk for repeat episodes CKD stage 3 secondary to diabetes (Chronic) CKDOctober 2022! 08/2019 Cr 1.74 ... Elevated in 2020 2' Inf/ABx/HyperGly .. [ ] re-check 03/2021! Hypertension associated with diabetes (Acute) Persistent proteinuria associated with type 2 diabetes mellitus (Acute) Hyperglycemia due to diabetes mellitus (Acute) Diabetes mellitus with complication in adult patient (Chronic) Type 2 diabetes mellitus with diabetic polyneuropathy (Acute) Iron deficiency (Acute) History of anemia (Chronic) Coronary artery disease (Chronic) w/ dilated cardiomyopathy and (+) stress test ++> PCI/Stenting, 12/29/21 Ischemic cardiomyopathy (Acute) w/ (+) stress test and PCI/Stenting, 12/29/21 ICD (implantable cardioverter-defibrillator) in place (Acute) ICD, single lead, Med[employer]onic Visia 04/27/2018 [place], [place] Elevated brain natriuretic peptide (BNP) level (Acute) thought to be near baseline, but unclear Hx Low serum albumin (Chronic) Protein WNL per 02/2022 labs Chronic systolic CHF (congestive heart failure) (Acute) EF 20-25% per Jul 2023 Echo ([facility]) Pulmonary hypertension (Acute) 12/29/21. [id number]. Noted during Cardiac cath, [facility]. NYHA Class IV Dermatitis, unspecified (Acute ~11/2021) 12/07/21 Dermatology Chronic posttraumatic stress disorder (Acute) History of posttraumatic stress disorder (PTSD) (Acute) Long Hx, Restarted with counselor, Madison Harris. 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 Rt, November 2020. Lft, 2018 (?) GERD (gastroesophageal reflux disease) (Chronic) PPI COPD (chronic obstructive pulmonary disease) (Chronic) Hx smoker (~10pkyr), PFTs (04/17/21). Disability examination (Acute) PFTs, 04/2021 for Disability 2' COPD. Housing or economic problem (Acute) Nasal polyp (Acute) Pt report based on past ENT 06/02/[address] Haque - surgical correction planned Allergic rhinitis due to allergen (Acute) Nasal turbinate hypertrophy (Acute) Other chronic sinusitis (Acute) Deviated nasal septum (Acute) Seasonal allergies (Acute) Corneal opacification (Acute) OS Proliferative retinopathy of both eyes (Acute) Full PRP OD Vitamin D deficiency (Acute) Secondary hyperparathyroidism (Acute) Medical History SARS-CoV-2 positive (~04/14/22) Dehydration Hypercalcemia (~02/21/22) Elevated troponin Positive cardiac stress test 2021 .. Cath, with stent placement + 12/29/21. Edema of abdomen Neck pain acute .. due to sleeping on sofa?? coughing? Decreased range of motion (ROM) of right knee Flexion ok; Extension is difficult .. Continues to work with PT Psoriasis Carpal tunnel syndrome of left wrist Cubital bursitis of right elbow Diabetic foot ulcer associated with type 2 diabetes mellitus RESOLVED with amputation. 09/30/20-R heel w/cellulitis-Dr Kevin,DPM 10/16/20 Debridement by Podiatry [place]30[place] [facility] [place] Heel Ulcer - cont close wound care by Podiatry Hx: recurrent pneumonia walking pneumonia most vines x 3 years Cervical neuropathy Tendonitis of long head of biceps brachii of right shoulder Bursitis of right shoulder Right shoulder pain Acute on chronic issue: now with elbow and hand pain (ulnar), with tingling. Finger pain, left Could this be gout? No injury. Trial Naproxen. Nasal polyps Erectile dysfunction Testicular cancer Surgical History S/P cardiac catheterization 12/29/21 [facility] (Dr. Jerry Ramírez). PCI (via R radial artery) of mid-LAD. Balloon angioplasty and lithotripsy. 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 History of amputation of left lower extremity History of amputation of great toe Right History of cardiac defibrillator placement History of cataract removal with insertion of prosthetic lens (~03/02/18) Right History of gastric bypass (~07/01/14) History of cystoscopy (~12/25/13) History of tonsillectomy (~1979) History of orchiectomy, unilateral (~06/1999) Right Family History Mother Diabetes Father Diabetes Heart disease Hypertension Sister Diabetes Brother Diabetes Brother Diabetes Heart disease Hypertension Social History Smoking/Tobacco Use Status: Former Tobacco Use Quit Date: 07/18/98 Tobacco: How many years used: 10 Smoking risk assessment performed?: Yes Alcohol Intake: current Alcohol Intake frequency: 0-2 drinks per day Alcohol type: hard liquor Drug use: Never Substance use type: does not use Adopted: No Caregiver/Support person: No Foster care: No Household members: significant other Housing: house Do you need help understanding health information?: Rarely current occupation: Unemployed Sexually active: Yes Do you think of yourself as: straight/heterosexual Current gender identity: male Do you feel safe at home: Yes (getting out of relationship) Do you feel safe in your relationship?: Yes Additional Social history: moving out Meds Allergies and Home Medications Allergies Allergy/AdvReac Type Severity Reaction Status Date / Time tramadol AdvReac Severe renal Verified 10/27/23 11:26 failure insulin aspart AdvReac Mild HypOglycemi Verified 10/27/23 11:26 a Poor Renal Function AdvReac Unknown renal Uncoded 10/27/23 11:26 failure Home Medications Medication Instructions Recorded Confirmed Type Amputation Compression Sleeve #1 ea 01/26/21 11/09/23 Rx fore arm cuff crutches #1 ea 06/07/21 11/09/23 Rx nicotine (polacrilex) 2 mg buccal 2 mg buccal Q6H PRN nicotine 06/16/21 11/09/23 Rx lozenge (Nicorette) cravings #108 ea Left Outer Sleeve #1 ea 12/07/21 11/09/23 Rx halobetasol propionate 0.05 % 1 applic topical DAILY PRN 12/15/21 11/09/23 History topical cream acetaminophen 325 mg tablet 650 mg (2 x 325 mg) PO Q4H PRN 04/02/22 11/09/23 Rx fever or pain #180 tabs azelastine 137 mcg (0.1 %) nasal See Rx Instructions intranasal BID 04/02/22 11/09/23 Rx spray aerosol #30 mL flash glucose scanning reader #1 ea 04/02/22 11/09/23 Rx (FreeStyle Luis 2 [place]) flash glucose sensor (FreeStyle #6 ea 04/02/22 11/09/23 Rx Luis 2 Sensor kit) fluticasone 250 mcg-salmeterol 50 1 inh inhalation BID #60 ea 04/02/22 11/09/23 Rx mcg/dose blistr powdr for inhalation (Advair Diskus) levalbuterol tartrate 45 2 inh inhalation Q6H PRN PRN 04/02/22 11/09/23 Rx mcg/actuation aerosol inhaler shortness of breath or wheezing #15 grams silver sulfadiazine 1 % topical 1 applic topical BID #400 grams 04/02/22 11/09/23 Rx cream Right prosthetic socket #1 ea 05/13/22 11/09/23 Rx clobetasol 0.05 % topical spray 1 applic topical BID 1 week #59 mL 08/19/22 11/09/23 Rx fluticasone propionate 50 1 spray intranasal DAILY #16 grams 12/02/22 11/09/23 Rx mcg/actuation nasal spray,suspension (Allergy Relief (fluticasone)) blood-glucose meter,continuous #1 ea 01/25/23 11/09/23 Rx (Dexcom G7 Cured Meat Packing Supervisor) blood-glucose sensor (Dexcom G7 #3 ea 01/25/23 11/09/23 Rx Sensor device) multivitamin with iron 1 tab PO DAILY #90 tabs 02/14/23 11/09/23 Rx aspirin 81 mg tablet,delayed 81 mg PO DAILY #90 tabs 02/23/23 11/09/23 Rx release atorvastatin 10 mg tablet 10 mg PO DAILY #90 tabs 02/23/23 11/09/23 Rx carvedilol 12.5 mg tablet 12.5 mg PO BID #180 tabs 02/23/23 11/09/23 Rx cetirizine 10 mg tablet 10 mg PO DAILY #90 tabs 02/23/23 11/09/23 Rx cholecalciferol (vitamin D3) 25 25 mcg PO DAILY #90 caps 02/23/23 11/09/23 Rx mcg (1,000 unit) capsule cyanocobalamin (vitamin B-12) 1,000 mcg PO DAILY #90 caps 02/23/23 11/09/23 Rx 1,000 mcg capsule glucometer WITH MATCHING TEST #1 ea 03/10/23 11/09/23 Rx STRIPS lancets #300 ea 03/10/23 11/09/23 Rx blood sugar diagnostic (Contour #100 ea 03/18/23 11/09/23 Rx Test Strips) pantoprazole 40 mg tablet,delayed 40 mg PO DAILY #90 tabs 05/22/23 11/09/23 Rx release clopidogrel 75 mg tablet 75 mg PO DAILY #30 tabs 06/17/23 11/09/23 Rx spironolactone 50 mg tablet 50 mg PO DAILY #90 tabs 06/18/23 11/09/23 Rx guaifenesin 600 mg tablet, 600 mg PO BID #20 tabs 06/24/23 11/09/23 Rx extended release 12 hr ferrous sulfate 325 mg (65 mg 325 mg PO DAILY 08/01/23 11/09/23 History iron) tablet ascorbic acid (vitamin C) 1,000 mg 500 mg (1/2 x 1,000 mg) PO DAILY 08/09/23 11/09/23 Rx tablet #90 tabs dapagliflozin propanediol 5 mg See Rx Instructions .Route 08/09/23 11/09/23 Rx tablet (Farxiga) .COMPLEX #28 tabs insulin lispro 100 unit/mL 1 sliding scale dose subcut 09/18/23 11/09/23 Rx subcutaneous pen (Humalog KwikPen USEASDIRECTD DM, E11.8 .. to jeep (U-100) Insulin) A1C < 7.5 #15 mL tiotropium bromide 2.5 See Rx Instructions .Route 10/10/23 11/09/23 Rx mcg/actuation mist for inhalation .COMPLEX #4 grams (Spiriva Respimat) semaglutide 0.25 mg or 0.5 mg (2 0.5 mg (0.736 mL) subcut QWEEK #3 10/12/23 11/09/23 Rx mg/3 mL) subcutaneous pen injector mL (Ozempic) Sleeve, Left BKA #1 ea 10/15/23 11/09/23 Rx Sleeve, Right BKA #1 ea 10/15/23 11/09/23 Rx insulin glargine 100 unit/mL (3 35 unit (0.35 mL) subcut QPM #35 mL 10/20/23 11/09/23 Rx mL) subcutaneous pen (Lantus Solostar U-100 Insulin) pen needle, diabetic 31 gauge x #300 ea 10/20/23 11/09/23 Rx 3/16 (BD Ultra-Fine Mini Pen Needle) torsemide 20 mg tablet 100 mg PO DAILY 10/21/23 11/09/23 History torsemide 20 mg tablet See Rx Instructions PO DAILY PRN 10/21/23 11/09/23 Rx acute edema, abd swelling, dyspnea (MAY NEED LABS) #100 tabs dupilumab 300 mg/2 mL subcutaneous 300 mg subcut Q2W 10/29/23 11/09/23 History syringe (Dupixent) Exam Const General: cooperative and ill appearing chronically Nutritional Appearance: obese morbidly obese Orientation: alert, awake and oriented x3 HENMT Head: normal to inspection, normocephalic and atraumatic Mouth: oral mucosae normal Chest Chest: normal inspection of the chest Resp Effort & Inspection: normal respiratory effort Cardio Rate: regular rate Rhythm: regular rhythm GI Inspection: large pannus and obesity Skin General skin exam: no rashes or lesions noted Extrem General: amputation noted (bilateral lower, stumps well healed) Results Labs 11/09/23 11:00 11/09/23 11:00 Labs: Laboratory Results - last 24 hr 11/09/23 11/09/23 11/09/23 11:00 11:09 14:19 WBC 9.89 RBC 4.48 Hgb 14.4 Hct 45.5 MCV 102 H MCH 32.1 MCHC 31.6 L RDW 15.5 H Plt Count 187 MPV 11.2 H Immature Gran % 0.3 Neutrophils % 79.4 Lymphocytes % 8.2 Monocytes % 8.6 Eosinophils % 3.1 Basophils % 0.4 Nucleated RBC % 0.3 Absolute Neutrophils 7.85 H Absolute Lymphocytes 0.81 L Absolute Monocytes 0.85 H Absolute Eosinophils 0.31 Absolute Basophils 0.04 PT 11.7 H INR 1.2 H APTT 26.5 Sodium 138 Potassium 4.9 Chloride 99 Carbon Dioxide 25.5 Anion Gap 13.5 H BUN 139 H* Creatinine 5.2 H* Est GFR (CKD-EPI 2020) 12.45 Glucose 183 H Calcium 8.3 L Total Bilirubin 0.4 AST 22 ALT 38 Alkaline Phosphatase 139 H Troponin I 348 H* 334 H* NT-Pro-B Natriuret Pep > 11548 H Total Protein 6.7 Albumin 2.9 L COVID-19 Source Nasopharynx SARS-CoV-2 (PCR) Negative Influenza Type A (PCR) Negative Influenza Type B (PCR) Negative RSV (PCR) Negative Last Vital Signs Temp 35.8 C L 11/09/23 10:46 Pulse 91 H 11/09/23 14:01 Resp 15 11/09/23 14:20 BP 169/109 H 11/09/23 14:01 Pulse Ox 96 11/09/23 14:20 Time Spent Time spent with Patient: 40-54 minutes Time was spent: preparing to see the patient(eg.review tests), obtaining and/or reviewing separately otained hiistory, ordering medications,tests, procedures, indepentently interpreting results and counseling the patient
--- NOTE | 2023-11-09 16:03 | NUR.NOTE ---
Nursing Note: Discussed patient's fall risk status with patient, MAMIE Murphy, and ALEXIS Ni. Bed alarm was removed as directed by MAMIE Murphy.
[2023-11-09] MEDS: Acetaminophen 325 MG TAB 650 MG PO (17:12)
[2023-11-09] MEDS: Normal Saline Flush 10 ML SYR (17:22)
--- NOTE | 2023-11-09 18:54 | NUR.NOTE ---
Nursing Note: Patient was woken for vital signs and found to have low oxygen saturation of 81%. On fully waking, patient oxygen saturation increased to 88%. Patient was repositioned high in the bed and in hubbard's at approximately 60 degrees and increased to 94% oxygen saturation. Respiratory therapist is notified and is coming to evaluate patient and place on oxygen for sleeping and night RN is aware.
[2023-11-09] MEDS: guaiFENesin 600 MG TABCR PO (20:10)
[2023-11-09] MEDS: Heparin 5,000 UNITS/ML VIAL 5000 UNITS SC (20:11)
[2023-11-09] MEDS: Budesonide/Formoterol 160/4.5 6 GM 60 PUFF INH IH (20:12)
[2023-11-09] MEDS: Silver sulfaDIAZINE 1% 25 GM TUBE TP (20:17)
[2023-11-09] MEDS: Insulin Glargine 300 UNITS/3 ML PEN 35 UNITS SC (20:18)
[2023-11-09] MEDS: Lidocaine 5% Patch 1 PATCH TP (23:25)
[2023-11-10] MEDS: Acetaminophen 325 MG TAB 650 MG PO ×4 (01:51→23:21)
[2023-11-10] MEDS: traZODone 100 MG TAB 50 MG PO (02:16)
[2023-11-10 02:19] VITALS: BP 99/70; PULSE 91; RESP 18; TEMP 35.9; O2SAT 92
[2023-11-10 07:21] VITALS: BP 103/73; PULSE 92; RESP 15; TEMP 36.6; O2SAT 92
[2023-11-10] MEDS: Budesonide/Formoterol 160/4.5 6 GM 60 PUFF INH IH ×2 (08:11→21:15)
[2023-11-10] MEDS: Tiotropium Bromide-Respimat 10 PUFF INH 2 PUFF IH (08:11)
[2023-11-10 09:01] LABS: Anion Gap 14.3 mmol/L (3-11); CO2 23.7 mmol/L (21.0-32.0); Calcium 7.9 mg/dL (8.5-10.1); Chloride 99 mmol/L (98-107); Estimated GFR 12.74 (mL/min/1.73m2); Glucose 189 mg/dL (74-106); Potassium 4.5 mmol/L (3.5-5.1); Sodium 137 mmol/L (136-145)
[2023-11-10 09:03] LABS: BUN 134 mg/dL (7-18); CREATININE 5.1 mg/dL (0.70-1.30)
--- NOTE | 2023-11-10 09:18 | PDOC.CMIN ---
Date of service: 11/10/23 Time of Service: 09:19 Care Management Initial Assmt Initial Assessment REASON FOR HOSPITALIZATION:: CHF PREVIOUS FUNCTIONAL STATUS/SOCIAL/FAMILY SUPPORTS:: Leroy lives in a single family home in [place], [place] with his friend. He does not have any children or other relatives in the area. 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 He has a wheelchair, walker, shower stool, crutches and prosthetics for both lower extremities. Maverick does not drive at this time and uses [facility] for transportation. He is independent with ADLs and IADLs and does not receive any community services CURRENT FUNCTIONAL STATUS:: Leroy was sitting up in bed when CM met with him. He is awake and easy to engage in conversation. Leroy is staying with his friend/ex-girlfriend and was planning on moving out by September 15. He is having a difficult time finding subsidized housing that is handicapped accessible. He is 10th on list for [facility]. Leroy has community supports in place. ADVANCE DIRECTIVES:: None on file Has patient been provided with info about the portal/API?: Yes Did the patient sign up for the portal?: Yes (Prior to admission) CODE STATUS:: Full Code INSURANCE COVERAGE / FINANCIAL ISSUES:: /[facility] CURRENT HOME/COMMUNITY SERVICES/EQUIPMENT:: [facility] van. Wheel Chair, has prosthetic LE. [facility] Strip Polisher: Mara Laboy. Community Connections: Sobeida Neville. [facility]: Madison Harris (four roll calender operator). Higher Ability: Jody Rodriguez PRIMARY CARE PHYSICIAN:: Candice Perez POTENTIAL DISCHARGE NEEDS:: Transportation, Follow up with PCP, Discharge plan of care PATIENT/FAMILY EDUCATION NEEDS:: Review of discharge instructions, activity, limitations, follow up plan, discuss Ask Me Three ANTICIPATED BARRIERS TO DISCHARGE:: None identified TRANSPORTATION:: via [facility] van coordinated by CM PLAN:: Anticipate Leroy will be discharged home when medically stable. He may benefit from [facility] RN services following discharge. He will follow up with his PCP and plan of care and transport via [facility] coordinated by CM. CM will follow and continue to assess for discharge needs. PFSH All Active Problems (Updated 11/09/23 @ 15:45 by Merle Murphy NP) Discharge planning issues (Acute) CKD (chronic kidney disease) (Chronic) CHF (congestive heart failure) (Chronic) DVT prophylaxis (Acute) Acute on chronic systolic heart failure (Acute) Hospitalized, 12/2021, x2 .. with successful diuresis. Type 2 diabetes mellitus with proliferative diabetic retinopathy without macular edema, bilateral (Acute) COVID (Acute ~06/22/23) Edema (Acute) Hyperphosphatemia associated with renal failure (Acute) Decreased ambulation status (Acute) Scooter, for outside .. 4-wheel, for hill, grass & dog.. getting to basement shop and garage and acreage.. HCM and QOL .. and working for [employer]. CKD (chronic kidney disease) stage 4, GFR 15-29 ml/min (Acute) GFR @ 19-20 with elevated A1C, but @ risk of hypoglycemia.. CHANEL (acute kidney injury) (Acute) Improved with diuresis and hydration @ home, but high risk for repeat episodes CKD stage 3 secondary to diabetes (Chronic) CKDOctober 2022! 08/2019 Cr 1.74 ... Elevated in 2020 2' Inf/ABx/HyperGly .. [ ] re-check 03/2021! Hypertension associated with diabetes (Acute) Persistent proteinuria associated with type 2 diabetes mellitus (Acute) Hyperglycemia due to diabetes mellitus (Acute) Diabetes mellitus with complication in adult patient (Chronic) Type 2 diabetes mellitus with diabetic polyneuropathy (Acute) Iron deficiency (Acute) History of anemia (Chronic) Coronary artery disease (Chronic) w/ dilated cardiomyopathy and (+) stress test ++> PCI/Stenting, 12/29/21 Ischemic cardiomyopathy (Acute) w/ (+) stress test and PCI/Stenting, 12/29/21 ICD (implantable cardioverter-defibrillator) in place (Acute) ICD, single lead, Medtronic Visia 04/27/2018 [place], [place] Elevated brain natriuretic peptide (BNP) level (Acute) thought to be near baseline, but unclear Hx Low serum albumin (Chronic) Protein WNL per 02/2022 labs Chronic systolic CHF (congestive heart failure) (Acute) EF 20-25% per Jul 2023 Echo ([facility]) Pulmonary hypertension (Acute) 12/29/21. [id number]. Noted during Cardiac cath, [facility]. NYHA Class IV Dermatitis, unspecified (Acute ~11/2021) 12/07/21 Dermatology Chronic posttraumatic stress disorder (Acute) History of posttraumatic stress disorder (PTSD) (Acute) Long Hx, Restarted with counselor, Madison Harris. 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 Rt, November 2020. Lft, 2018 (?) GERD (gastroesophageal reflux disease) (Chronic) PPI COPD (chronic obstructive pulmonary disease) (Chronic) Hx smoker (~10pkyr), PFTs (04/17/21). Disability examination (Acute) PFTs, 04/2021 for Disability 2' COPD. Housing or economic problem (Acute) Nasal polyp (Acute) Pt report based on past ENT 06/02/[address] Haque - surgical correction planned Allergic rhinitis due to allergen (Acute) Nasal turbinate hypertrophy (Acute) Other chronic sinusitis (Acute) Deviated nasal septum (Acute) Seasonal allergies (Acute) Corneal opacification (Acute) OS Proliferative retinopathy of both eyes (Acute) Full PRP OD Vitamin D deficiency (Acute) Secondary hyperparathyroidism (Acute) Medical History SARS-CoV-2 positive (~04/14/22) Dehydration Hypercalcemia (~02/21/22) Elevated troponin Positive cardiac stress test 2021 .. Cath, with stent placement + 12/29/21. Edema of abdomen Neck pain acute .. due to sleeping on sofa?? coughing? Decreased range of motion (ROM) of right knee Flexion ok; Extension is difficult .. Continues to work with PT Psoriasis Carpal tunnel syndrome of left wrist Cubital bursitis of right elbow Diabetic foot ulcer associated with type 2 diabetes mellitus RESOLVED with amputation. 09/30/20-R heel w/cellulitis-Dr Kevin,DPM 10/16/20 Debridement by Podiatry 10/30/20 [facility] [place] Vascular - RIGHT Heel Ulcer - cont close wound care by Podiatry Hx: recurrent pneumonia walking pneumonia most vines x 3 years Cervical neuropathy Tendonitis of long head of biceps brachii of right shoulder Bursitis of right shoulder Right shoulder pain Acute on chronic issue: now with elbow and hand pain (ulnar), with tingling. Finger pain, left Could this be gout? No injury. Trial Naproxen. Nasal polyps Erectile dysfunction Testicular cancer Surgical History S/P cardiac catheterization 12/29/21 [facility] (Dr. Jerry Ramírez). PCI (via R radial artery) of mid-LAD. Balloon angioplasty and lithotripsy. 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 History of amputation of left lower extremity History of amputation of great toe Right History of cardiac defibrillator placement History of cataract removal with insertion of prosthetic lens (~03/02/18) Right History of gastric bypass (~07/01/14) History of cystoscopy (~12/25/13) History of tonsillectomy (~1979) History of orchiectomy, unilateral (~06/1999) Right Family History Mother Diabetes Father Diabetes Heart disease Hypertension Sister Diabetes Brother Diabetes Brother Diabetes Heart disease Hypertension Social History Smoking/Tobacco Use Status: Former Tobacco Use Quit Date: 07/18/98 Tobacco: How many years used: 10 Smoking risk assessment performed?: Yes Alcohol Intake: current Alcohol Intake frequency: 0-2 drinks per day Alcohol type: hard liquor Drug use: Never Substance use type: does not use Adopted: No Caregiver/Support person: No Foster care: No Household members: significant other Housing: house Do you need help understanding health information?: Rarely current occupation: Unemployed Sexually active: Yes Do you think of yourself as: straight/heterosexual Current gender identity: male Do you feel safe at home: Yes (getting out of relationship) Do you feel safe in your relationship?: Yes Additional Social history: moving out Readmission Within the Past 30 Days Yes or No: Yes Date of First Admission Date of 1st Admission: 10/27/23 Date of this Admission Date of Admission: 11/09/23 This admission was: Through ED Office Visit Since 1st Admission Have you seen your PCP in the office since discharge?: No Date of PCP Appointment: Next week Had an appointment Been Scheduled?: No I. Interview patient and/or Family Difficulty reaching your doctor or getting an office appt?: No Have you had trouble purchasing/ or taking medication?: No Describe barriers fpr purchasing or taking medication: none How do you take your medications and set up your pills?: yes Have you had trouble with getting meals at home?: No Did you feel ready for discharge when you left the last time: Yes What were the barriers for not receiving services?: PCP appointment scheduled 3 weeks following discharge. Did you call your physician beore you came to the ED?: Yes Did your physician tell you to come in?: Yes If the patient had a VNA ordered Did the patient have a VNA order?: No ED visits How many ED visits in the past 12 months: 2 SDOH(Care Management) Screening Will the Patient Participate in the Screening?: Yes Do you worry about having a steady place to live?: yes Problems where you live: other In the past 12 months, have you had to go without electric, gas, oil or water in your home?: no Have you or anyone in your house had to go without enough food to eat?: no Has lack of transportation kept you from medical appointments or from doing things needed for daily living?: no Has anyone in your support network made you feel unsafe for any reason?: no Social Determinants of Health Comments(SDOH Details): recent breakup with in July; on assisted living waiting lists; may move back to [place] Health Related Social Needs Health related social needs: housing instability, housed, with risk of homelessness(Z59.811) Anticipated HH Services Anticipated HH Services at Discharge [facility] (May benefit from [facility] RN services- CHF support, monitor weight) Anticipated Date of Discharge: 11/11/23. Following Provider: Candice Perez.
[2023-11-10] MEDS: Heparin 5,000 UNITS/ML VIAL 5000 UNITS SC ×2 (09:22→21:27)
[2023-11-10] MEDS: Furosemide 100 MG/10 ML VIAL IVP ×2 (09:22→16:42)
[2023-11-10] MEDS: Atorvastatin 10 MG TAB PO (09:23)
[2023-11-10] MEDS: Cholecalciferol (Vitamin D3) 1,000 UNIT TAB 1000 UNITS PO (09:23)
[2023-11-10] MEDS: Pantoprazole 40 MG TABCR PO (09:23)
[2023-11-10] MEDS: guaiFENesin 600 MG TABCR PO ×2 (09:23→21:25)
[2023-11-10] MEDS: Aspirin E.C. 81 MG TABEC PO (09:23)
[2023-11-10] MEDS: Ferrous Sulfate 325 MG TAB PO (09:23)
[2023-11-10] MEDS: Multivitamin w/Minerals TAB 1 TAB PO (09:23)
[2023-11-10] MEDS: Cyanocobalamin 500 MCG TAB 1000 MCG PO (09:24)
[2023-11-10] MEDS: Cetirizine 10 MG TAB 5 MG PO (09:24)
[2023-11-10] MEDS: Ascorbic Acid 500 MG TAB PO (09:24)
[2023-11-10] MEDS: Carvedilol 12.5 MG TAB PO ×2 (09:24→21:25)
[2023-11-10] MEDS: Triamcinolone 0.1% CR 15 GM TUBE TP (09:24)
[2023-11-10] MEDS: Clopidogrel 75 MG TAB PO (09:24)
[2023-11-10] MEDS: Fluticasone NASAL SPRAY 16 GM BTL NS (09:25)
[2023-11-10] MEDS: Silver sulfaDIAZINE 1% 25 GM TUBE TP (09:25)
[2023-11-10] MEDS: Normal Saline Flush 10 ML SYR IVP ×2 (09:44→16:42)
[2023-11-10] MEDS: Patch Removal 1 EACH TP (09:44)
--- NOTE | 2023-11-10 14:26 | PHACLINREV_ITS ---
Pharmacy Admission Review Admission Clinical Review Admission Pharmacy Review: (Updated 11/09/23 @ 15:45 by Merle Murphy NP) Discharge planning issues (Acute) DVT prophylaxis (Acute) Acute on chronic systolic heart failure (Acute) Type 2 diabetes mellitus with proliferative diabetic retinopathy without macular edema, bilateral (Acute) CKD (chronic kidney disease) stage 4, GFR 15-29 ml/min (Acute) Ischemic cardiomyopathy (Acute) tramadol Adverse Reaction (Severe, Verified 10/27/23 11:26) renal failure insulin aspart Adverse Reaction (Mild, Verified 10/27/23 11:26) HypOglycemia Poor Renal Function Adverse Reaction (Unknown, Uncoded 10/27/23 11:26) renal failure Resuscitation Status Full Code Height 6 ft 1 in Weight 166 kg Pharmacy Admission Review Renal Dosing Renal Dosing: BUN 134 mg/dL (7-18) H* 11/10/23 08:40 Creatinine 5.1 mg/dL (0.70-1.30) H* 11/10/23 08:40 Medications needing adjustments: Reviewed (CrCl 27 mL/min) List of meds needing interventions: Current medications are okay Anticoagulation Anticoagulation: Hgb 14.4 g/dL (13.5-17.5) 11/09/23 11:00 Hct 45.5 % (40.0-50.0) 11/09/23 11:00 Plt Count 187 10^3/uL (130-400) 11/09/23 11:00 INR 1.2 (0.9-1.1) H 11/09/23 11:00 Creatinine 5.1 mg/dL (0.70-1.30) H* 11/10/23 08:40 DVT Prophylaxis: Reviewed Medications: Heparin (q12h) Relevant Labs Relevant Labs: Sodium 137 mmol/L (136-145) 11/10/23 08:40 Potassium 4.5 mmol/L (3.5-5.1) 11/10/23 08:40 Chloride 99 mmol/L (98-107) 11/10/23 08:40 Electrolytes, C-Reactive P, ESR: Reviewed DM Control DM Control: Glucose 189 mg/dL (74-106) H 11/10/23 08:40 Finger Stick Blood Glucose 156 1139 Finger Stick Blood Glucose 156 1139 Finger Stick Blood Glucose 107 0945 Finger Stick Blood Glucose 107 0739 Finger Stick Blood Glucose 107 0739 DM Control: Reviewed Insulin Dosing, Diabetic Medication: Has order for SS insulin and nightly glarg ine. Ozempic on hold while inpatient. Cardiac Review Cardiac Review: Troponin I 334 ng/L (< or =60) H* 11/09/23 14:19 NT-Pro-B Natriuret Pep > 98463 pg/mL (<300) H 11/09/23 11:00 BP, HR, EF%: Reviewed (BP WNL, HR 92) QTc Review QTc: Reviewed (QTc 451 from 11/09/23) IV to PO Switch IV Medications: Reviewed (Furosemide - plan to switch to PO tomorrow per morning meeting) Home Meds Home Med List reviewed: Intervened Relevent Home Meds Not ordered & why?: Spironolactone (on hold per H+P), torsem mela (on hold per H+P), Dupixent (every 2 weeks), Advair (switched to symbicort - non-formulary substitution), Ozempic (has order for SS insulin and glargine), Clobetasol and halobetasol Called nursing regarding 2 patient own medications to see if they could be brought in for the patient. Waiting to hear back. Current Meds Current Medication Order Review: Reviewed
--- NOTE | 2023-11-10 14:41 | W.PM.PROGNOT ---
Date of Service Date of service: 11/10/23 Time of Service: 14:41 Assessment and Plan Assessment and plan (1) Acute on chronic systolic heart failure: Status: Acute Assessment and plan: secondary to ischemic CM, recently worsened d/t witholding his torsemide upon discharge from recent admission. However, he seems to be responding to iv lasix, I did add diuril for additional diuresis. I would like him to be net negative by 1 to 1.5 liter per day. He is 10 kg over his wt when he left [facility] earlier this month. (2) Ischemic cardiomyopathy: Status: Acute Assessment and plan: -troponin I levels stable at 348 and 334, no ischemic pain or dyspnea and with no new EKG changes, no further monitoring unless indicated (3) Coronary artery disease: Status: Chronic Assessment and plan: -stable, as above, continue home meds of atorvastatin, aspirin. Qualifiers: Coronary Disease-Associated Artery/Lesion type: [place] artery [place] vs. transplanted heart: [place] heart Associated angina: without angina Qualified Code(s): I25.10 - Atherosclerotic heart disease of [place] coronary artery without angina pectoris (4) Type 2 diabetes mellitus with proliferative diabetic retinopathy without macular edema, bilateral: Status: Acute Assessment and plan: -continue diabetic diet, sliding scale ac/hs last A1C was 8.3 in September 2023 Qualifiers: Diabetes mellitus retirement insulin use: with terminologist use Qualified Code(s): E11.3593 - Type 2 diabetes mellitus with proliferative diabetic retinopathy without macular edema, bilateral; Z79.4 - care home (current) use of insulin (5) CKD (chronic kidney disease) stage 4, GFR 15-29 ml/min: Status: Acute Assessment and plan: -worsening Cr now up to 5.2 continue to diurese, monitor daily labs Patient eventually will need to go on hemodialysis but not yet as long as we can control his fluid balance and electrolytes w/ diuretics. (6) DVT prophylaxis: Status: Acute Assessment and plan: heparin subcutaneously for DVT prophylaxis. (7) Discharge planning issues: Status: Acute Assessment and plan: anticipate discharge to home when medically stable. with follow up w/ his PCP (Dr. Deleon) and Dr. Estrada (cardiology) Subjective Subjective Interval history since last seen: Leroy denies any dyspnea or CP. His symptoms of CHF exacerbations are primarily in his weight gain and leg and scrotal and abdominal edema. He is somewhat better today but not back to his baseline. Exam Narrative Exam Narrative: Leroy is sitting up in bed watching TV, no acute distress, not dyspneic Lungs: clear Heart: RRR Abdomen: obese, but w/ abdominal wall edema, scrotal edema of moderate degree and bilateral BKA w/ edema of thighs. Objective Last Vital Signs Temp 36.6 C 11/10/23 07:21 Pulse 92 H 11/10/23 07:21 Resp 15 11/10/23 07:21 BP 103/73 11/10/23 07:21 Pulse Ox 92 11/10/23 07:21 Laboratory Results - last 24 hr 11/09/23 11/10/23 14:19 08:40 Sodium 137 Potassium 4.5 Chloride 99 Carbon Dioxide 23.7 Anion Gap 14.3 H BUN 134 H* Creatinine 5.1 H* Est GFR (CKD-EPI 2020) 12.74 Glucose 189 H Calcium 7.9 L Troponin I 334 H* Time Spent with Patient Time Spent with Patient: 25-34 minutes Time was spent: preparing to see the patient(eg.review tests), ordering medications,tests, procedures, referring, communicating with other health adult live in caregiver, indepentently interpreting results, counseling the patient and care coordination
--- NOTE | 2023-11-10 16:06 | CHAPLAIN ---
Leroy was in bed when I visited. He reminded me that we met last week. He told me that he's good and not interested in further conversation. According to Care Management notes, he continues to live with her friend/exgirlfriend, although he had hoped to move out in September. He is on a waiting lists for handicapped accessible apartment with [facility].
--- NOTE | 2023-11-10 18:18 | NUR.NOTE ---
Nursing Note: Pt c/o left eye pain with ARNOLD, PRN tylenol given with good effect. BM this shift, using [facility] for transfers, pt states he is unable to put prosthetics on due to swelling. Good appetite, makes needs known.
[2023-11-10 20:08] VITALS: BP 116/84; PULSE 92; RESP 18; TEMP 36.5; O2SAT 91
[2023-11-10] MEDS: Insulin Glargine 300 UNITS/3 ML PEN 35 UNITS SC (20:55)
[2023-11-10] MEDS: Lidocaine 5% Patch 1 PATCH TP (21:26)
[2023-11-10] MEDS: Melatonin 3 MG TAB PO (23:22)
[2023-11-11 07:07] LABS: Anion Gap 13.1 mmol/L (3-11); CO2 24.9 mmol/L (21.0-32.0); Calcium 7.9 mg/dL (8.5-10.1); Chloride 101 mmol/L (98-107); Estimated GFR 12.74 (mL/min/1.73m2); Glucose 97 mg/dL (74-106); Potassium 3.9 mmol/L (3.5-5.1); Sodium 139 mmol/L (136-145)
[2023-11-11 07:09] LABS: PHOSPHORUS 8.1 mg/dL (2.6-4.7)
[2023-11-11 07:10] LABS: BUN 135 mg/dL (7-18); CREATININE 5.1 mg/dL (0.70-1.30)
[2023-11-11 07:44] VITALS: BP 91/61; PULSE 89; RESP 17; TEMP 35.3; O2SAT 93
[2023-11-11 07:56] VITALS: BP 110/62
[2023-11-11] MEDS: Pantoprazole 40 MG TABCR PO (07:57)
[2023-11-11] MEDS: Tiotropium Bromide-Respimat 10 PUFF INH 2 PUFF IH (08:18)
[2023-11-11] MEDS: Budesonide/Formoterol 160/4.5 6 GM 60 PUFF INH IH ×2 (08:18→20:22)
[2023-11-11 08:35] LABS: Lab Add On Test DONE
[2023-11-11] MEDS: Cyanocobalamin 500 MCG TAB 1000 MCG PO (09:05)
[2023-11-11] MEDS: guaiFENesin 600 MG TABCR PO ×2 (09:05→19:55)
[2023-11-11] MEDS: Multivitamin w/Minerals TAB 1 TAB PO (09:05)
[2023-11-11] MEDS: Clopidogrel 75 MG TAB PO (09:05)
[2023-11-11] MEDS: Ascorbic Acid 500 MG TAB PO (09:06)
[2023-11-11] MEDS: Cholecalciferol (Vitamin D3) 1,000 UNIT TAB 1000 UNITS PO (09:06)
[2023-11-11] MEDS: Carvedilol 12.5 MG TAB PO ×2 (09:06→19:54)
[2023-11-11] MEDS: Atorvastatin 10 MG TAB PO (09:06)
[2023-11-11] MEDS: Aspirin E.C. 81 MG TABEC PO (09:06)
[2023-11-11] MEDS: Cetirizine 10 MG TAB 5 MG PO (09:07)
[2023-11-11] MEDS: Ferrous Sulfate 325 MG TAB PO (09:07)
[2023-11-11] MEDS: Heparin 5,000 UNITS/ML VIAL 5000 UNITS SC ×2 (09:08→19:53)
[2023-11-11] MEDS: Normal Saline Flush 10 ML SYR IVP ×2 (09:09→15:52)
--- NOTE | 2023-11-11 09:13 | PDOC.CMPRO ---
Date of service: 11/11/23 Time of Service: 09:13 Care Management Progress Note Progress Note Text Progress Note Text: S/O:Leroy was sitting up in bed when CM met with him. A: Leroy is a 53 year old man admitted on 10/27/23 with CHF P:Anticipate Leroy will be discharged home with no new services when medically stable. He will follow up with his PCP and plan of care and transport via [facility] coordinated by CM. CM will follow and continue to assess for discharge needs. SDOH(Care Management) Screening Will the Patient Participate in the Screening?: Yes Do you worry about having a steady place to live?: yes Problems where you live: other In the past 12 months, have you had to go without electric, gas, oil or water in your home?: no Have you or anyone in your house had to go without enough food to eat?: no Has lack of transportation kept you from medical appointments or from doing things needed for daily living?: no Has anyone in your support network made you feel unsafe for any reason?: no Social Determinants of Health Comments(SDOH Details): recent breakup with in July; on assisted living waiting lists; may move back to [place] Health Related Social Needs Health related social needs: housing instability, housed, with risk of homelessness(Z59.811)
[2023-11-11] MEDS: Furosemide 100 MG/10 ML VIAL IVP ×2 (09:26→15:49)
[2023-11-11] MEDS: Fluticasone NASAL SPRAY 16 GM BTL NS (09:43)
[2023-11-11] MEDS: Patch Removal 1 EACH TP (09:43)
--- NOTE | 2023-11-11 09:53 | W.INDIABCONS ---
Date of service: 11/11/23 Time of Service: 09:45 Diabetes Inpatient Consult Reason for Visit: diabetes education / heart healthy eating DESCRIPTION/ASSESSMENT: referral received to help pt order meals per his preference and health (goal of care). Pt known to myself and kitchen staff all around from previous admission earlier this month. Pt with PMH significant for DM with insulin on board, CHF and stage III CKD and bilateral BKA's. Leroy gets frustrated with the food choices here. He tends to order ~75 grams of carbs most meals here (88g at dinner tonight). From brief conversations/interviews he states he doesn't use salt at home, but at the same time talks about how he smokes the best pork belly and gets angry when we try to avoid giving him the 4 pieces of koch he requests for breakfast each morning. He seems to insist he knows his way around his diet/what he needs. I attempted to talk about sodium and heart health/fluid balance -he stated he doesn't use salt at home. Attempted to educate pt that high sodium intakes can be had without using salt shaker. He replies that only reason he is back in the hospital was because he wasn't discharged last admission with a diuretic. Most of our interactions this stay and last hospitalization revolved around trying to appease his menu selections when possible and help remedy the common situations where he doesn't like what he is served at meals. A1c historically has been >8%. Discussed a good goal to include more fiber rich plant choices in his diet - legumes, cooked veggies etc... - he is very much animal-oriented with his diet. He is confident in his knowledge about his dietary needs. States he needs to eat protein as a priority due to gastric sleeve years ago. Pt is ambivalent about making changes to his diet that will help him manage his chronic conditions and likes to eat what he enjoys. I will attempt follow ups during Leroy's admission to approach his ambivalence regarding making healthier food choices INTERVENTION: no nutrition intervention planned at this time - will continue to help guide pt's menu choices and support low sodium, carb consistent diet, PLAN: will monitor nutrition status over admission and follow up with pt regarding improving his nutrition intake Time Spent in Nutritional Counseling and Treatment: 15 min
[2023-11-11] MEDS: Lidocaine 2% Jelly 11 ML SYR UR (11:47)
[2023-11-11] MEDS: Triamcinolone 0.1% CR 15 GM TUBE TP (14:41)
[2023-11-11 15:01] VITALS: BP 118/87; PULSE 89; RESP 16; TEMP 36.5; O2SAT 91
--- NOTE | 2023-11-11 15:15 | CMPROGNOTE_ITS ---
Date of service: 11/11/23 Care Management Progress Note Progress Note Text Progress Note Text: S/O: Leroy was sitting up in bed when talking with CM. He reports he was recently admitted a week ago and had his PCP not been away, he may not have admitted again so quickly. Maverick shares he is feeling a bit better today but does not anticiapte discharging through the weekend. Leroy shared he lives with a friend who was a significant other who he moved from [facility] to [place] with. He reports he is on the waiting list for several housing lists but can continue to stay with his friend as need be. 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 CM following. A: Leroy is a 53 year old admitted to [facility] 11/09/23 for CHF P:Anticipate Leroy will be discharged home when medically stable. He may benefit from [facility] RN services following discharge. He will follow up with his PCP and plan of care and transport via [facility] w/c van coordinated by CM. CM will follow and continue to assess for discharge needs. SDOH(Care Management) Screening Will the Patient Participate in the Screening?: Yes Do you worry about having a steady place to live?: yes Problems where you live: other In the past 12 months, have you had to go without electric, gas, oil or water in your home?: no Have you or anyone in your house had to go without enough food to eat?: no Has lack of transportation kept you from medical appointments or from doing things needed for daily living?: no Has anyone in your support network made you feel unsafe for any reason?: no Social Determinants of Health Comments(SDOH Details): recent breakup with in July; on assisted living waiting lists; may move back to [place] Health Related Social Needs Health related social needs: housing instability, housed, with risk of homelessness(Z59.811)
--- NOTE | 2023-11-11 17:16 | PGE_ITS ---
Date of Service Date of service: 11/11/23 Time of Service: 17:16 Assessment and Plan Assessment and plan (1) Acute on chronic systolic heart failure: Status: Acute Assessment and plan: secondary to ischemic CM, recently worsened d/t witholding his torsemide upon discharge from recent admission. However, he seems to be responding to iv lasix, I did add diuril for additional diuresis. Leroy is now diuresing at >2 liters net negative per day. I think he is approaching the point where we can transition over to his oral torsemide. I did indapamide to his home regimen. If needed we can add zaroxolyn for additional diuretic effect. I anticipate his dc home over the weekend. I wish we had a heart failure clinic here at [facility]. Patient's like Leroy would benefit from closer monitoring of his CKD and his CHF. (2) Ischemic cardiomyopathy: Status: Acute Assessment and plan: -troponin I levels stable at 348 and 334, no ischemic pain or dyspnea and with no new EKG changes, no further monitoring unless indicated (3) Coronary artery disease: Status: Chronic Assessment and plan: -stable, as above, continue home meds of atorvastatin, aspirin. Qualifiers: Coronary Disease-Associated Artery/Lesion type: [place] artery [place] vs. 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 continue to diurese, monitor daily labs Patient eventually will need to go on hemodialysis but not yet as long as we can control his fluid balance and electrolytes w/ diuretics. (6) DVT prophylaxis: Status: Acute Assessment and plan: heparin subcutaneously for DVT prophylaxis. (7) Discharge planning issues: Status: Acute Assessment and plan: anticipate discharge to home when medically stable. with follow up w/ his PCP (Dr. Deleon) and Dr. Estrada (cardiology) Subjective Subjective Interval history since last seen: Leroy feels that his abdominal wall, scrotal and leg edema are improving. Unfortunately his weights are difficult to interpret as they were done in different fashions (bedscale vs weight on chaitanya lift). His wt today is allegedly 149.6 kg (admission wt was 166 kg). However he is diuresing over 2 to 3 liters per day. I told him that we would finish out iv diuretics today and tomorrow switch to oral diuretics and watch him for 24 hours on oral diuretics and if he remains stable then plan for dc home on Tuesday. Exam Narrative Exam Narrative: Leroy is sitting up in bed, he is watching TV, no acute distress, pleasant converstion w/out dyspnea, not requiring oxygen Lungs: clear Heart: RRR, distant heart tones, no murmur or rub Abdomen: obese, soft, edema is improving, not as firm as was on admission, some bruising from heparin shots proximal legs: edema improving although the right seems still larger than the left, now some definition of his patella, scrotum does not appear edematous Negron draining clear yellow urine. Objective Last Vital Signs Temp 36.5 C 11/11/23 15:01 Pulse 89 11/11/23 15:01 Resp 16 11/11/23 15:01 BP 118/87 11/11/23 15:01 Pulse Ox 91 L 11/11/23 15:01 Laboratory Results - last 24 hr 11/11/23 11/11/23 06:10 06:10 Sodium 139 Potassium 3.9 Chloride 101 Carbon Dioxide 24.9 Anion Gap 13.1 H BUN 135 H* Creatinine 5.1 H* Est GFR (CKD-EPI 2020) 12.74 Glucose 97 Calcium 7.9 L Phosphorus 8.1 H Cancelled Add-On Test Request DONE Time Spent with Patient Time Spent with Patient: 25-34 minutes Time was spent: preparing to see the patient(eg.review tests), ordering medications,tests, procedures, referring, communicating with other health hospice care transitions coordinator, indepentently interpreting results, counseling the patient and care coordination
[2023-11-11] MEDS: Insulin Aspart 300 UNITS/3 ML PEN SC (17:55)
[2023-11-11 18:15] LABS: Parathyroid Hormone,Intact 382 pg/mL (19-88)
[2023-11-11] MEDS: Lidocaine 5% Patch 1 PATCH TP (19:54)
[2023-11-11] MEDS: Insulin Glargine 300 UNITS/3 ML PEN 35 UNITS SC (19:56)
[2023-11-11 23:05] VITALS: BP 124/91; PULSE 89; RESP 16; TEMP 36.7; O2SAT 91
[2023-11-11] MEDS: Acetaminophen 325 MG TAB 650 MG PO (23:14)
[2023-11-11] MEDS: Melatonin 3 MG TAB PO (23:15)
[2023-11-12 07:04] LABS: Anion Gap 10.2 mmol/L (3-11); CO2 26.8 mmol/L (21.0-32.0); Calcium 7.7 mg/dL (8.5-10.1); Chloride 99 mmol/L (98-107); Estimated GFR 13.05 (mL/min/1.73m2); Glucose 110 mg/dL (74-106); Magnesium 2.5 mg/dL (1.8-2.4); Potassium 3.7 mmol/L (3.5-5.1); Sodium 136 mmol/L (136-145)
[2023-11-12 07:06] LABS: BUN 134 mg/dL (7-18)
[2023-11-12 08:06] LABS: HCT 42.9 % (40.0-50.0); HGB 13.7 g/dL (13.5-17.5); MCH 31.7 pg (27.0-33.0); MCHC 31.9 % (32.0-36.0); MCV 99 fL (80-95); MPV 11.2 fL (8.0-11.0); Platelet Count 178 10^3/uL (130-400); RBC 4.32 10^6/uL (4.36-5.78); RDW 15.1 % (11.8-14.1); RDW-SD 55.1 fL; WBC 9.02 10^3/uL (4.4-10.8)
[2023-11-12 08:08] VITALS: BP 122/80; PULSE 85; RESP 16; TEMP 35.5; O2SAT 97
[2023-11-12] MEDS: Clopidogrel 75 MG TAB PO (08:35)
[2023-11-12] MEDS: guaiFENesin 600 MG TABCR PO ×2 (08:36→19:50)
[2023-11-12] MEDS: Pantoprazole 40 MG TABCR PO (08:36)
[2023-11-12] MEDS: Carvedilol 12.5 MG TAB PO ×2 (08:36→19:49)
[2023-11-12] MEDS: Aspirin E.C. 81 MG TABEC PO (08:36)
[2023-11-12] MEDS: Cholecalciferol (Vitamin D3) 1,000 UNIT TAB 1000 UNITS PO (08:36)
[2023-11-12] MEDS: Atorvastatin 10 MG TAB PO (08:36)
[2023-11-12] MEDS: Multivitamin w/Minerals TAB 1 TAB PO (08:37)
[2023-11-12] MEDS: Ascorbic Acid 500 MG TAB PO (08:37)
[2023-11-12] MEDS: Cetirizine 10 MG TAB 5 MG PO (08:37)
[2023-11-12] MEDS: Cyanocobalamin 500 MCG TAB 1000 MCG PO (08:37)
[2023-11-12] MEDS: Heparin 5,000 UNITS/ML VIAL 5000 UNITS SC ×2 (08:38→19:51)
[2023-11-12] MEDS: Normal Saline Flush 10 ML SYR IVP (08:38)
[2023-11-12] MEDS: Budesonide/Formoterol 160/4.5 6 GM 60 PUFF INH IH ×2 (09:00→20:43)
[2023-11-12] MEDS: Tiotropium Bromide-Respimat 10 PUFF INH 2 PUFF IH (09:01)
[2023-11-12] MEDS: Patch Removal 1 EACH TP (10:59)
[2023-11-12] MEDS: Ferrous Sulfate 325 MG TAB PO (11:06)
[2023-11-12] MEDS: Fluticasone NASAL SPRAY 16 GM BTL NS (11:06)
[2023-11-12] MEDS: Triamcinolone 0.1% CR 15 GM TUBE TP ×2 (11:11→15:07)
[2023-11-12] MEDS: Lidocaine 2% Jelly 11 ML SYR UR ×2 (11:42→17:56)
[2023-11-12] MEDS: Insulin Aspart 300 UNITS/3 ML PEN SC ×2 (12:38→17:28)
--- NOTE | 2023-11-12 15:28 | W.PM.PROGNOT ---
Date of Service Date of service: 11/12/23 Time of Service: 15:28 Assessment and Plan Assessment and plan (1) Acute on chronic systolic heart failure: Status: Acute Assessment and plan: secondary to ischemic CM, recently worsened d/t witholding his torsemide upon discharge from recent admission. Leroy has responded well to iv lasix and diuril. although his intake and output is not precise (there is much missed on the intake side of his recordings, nevertheless we have accurate output since he allowed a quigley to be placed this admission. output is between 2 to 4 liters per day. I was going to give him metolazone in addition to his torsemide which I resumed this morning but he seems to be making more than adequate urine output, therefore I will stick w/ the combo of torsemide and indampamide. If his urine output tapers off and he is still showing signs of volume overload, then I would consider addition of metolazone. (2) Ischemic cardiomyopathy: Status: Acute Assessment and plan: -troponin I levels stable at 348 and 334, no ischemic pain or dyspnea and with no new EKG changes, no further monitoring unless indicated (3) Coronary artery disease: Status: Chronic Assessment and plan: -stable, as above, continue home meds of atorvastatin, aspirin. Qualifiers: Coronary Disease-Associated Artery/Lesion type: [place] artery [place] vs. transplanted heart: [place] heart Associated angina: without angina Qualified Code(s): I25.10 - Atherosclerotic heart disease of [place] coronary artery without angina pectoris (4) Type 2 diabetes mellitus with proliferative diabetic retinopathy without macular edema, bilateral: Status: Acute Assessment and plan: -continue diabetic diet, sliding scale ac/hs last A1C was 8.3 in September 2023 morning glucose running in the 80's, I will cut back his evening Lantus by 25% from 35 units to 26 units, other glucose readings are ok. continue current sliding scale novolog. Qualifiers: Diabetes mellitus [facility] insulin use: with terminal worker use Qualified Code(s): E11.3593 - Type 2 diabetes mellitus with proliferative diabetic retinopathy without macular edema, bilateral; Z79.4 - buttermaker (current) use of insulin (5) CKD (chronic kidney disease) stage 4, GFR 15-29 ml/min: Status: Acute Assessment and plan: -overall his renal function has declined over past couple months but since diuresing him it has remained at plateau of Creatinine of 5.0 and BUN in the 130's, however K has improved from 5 to 3.7 but he is no longer on his spironolactone. If K remains on the low side, may trial him on spironolactone for GDT of his CHF. (6) DVT prophylaxis: Status: Acute Assessment and plan: heparin subcutaneously for DVT prophylaxis. (7) Discharge planning issues: Status: Acute Assessment and plan: anticipate discharge to home when medically stable. with follow up w/ his PCP (Dr. Deleon) and Dr. Estrada (cardiology) Subjective Subjective Interval history since last seen: Leroy has had recurrent pain at the penile meatus from his catheter, finally relieved w/ lidocaine urojet. I suggested removing the catheter today but he says that he has finally gotten comfortable and would prefer that this is left in for tonight. I told him that I have switched his iv lasix to oral torsemide along w/ indapamide. We are awaiting to see if this provided adequate diuresis. His potassium and his bicarbonate levels are ok. I did order Sevelamer yesterday to treat his hyperphosphatemia however, we do not carry this so we have substituted PhosLo. I told Leroy that tomorrow morning we will remove the quigley catheter and make sure that he can void on his own prior to discharge home. I would like to dc him tomorrow as long as he is having adequate diuresis on the current oral regimen. Exam Narrative Exam Narrative: Leroy seems tired today but he did engage w/ me in conversation He is not dyspneic Lungs: clear Heart: RRR Abdomen: obese, but soft, not distended, skin seems less taut, softer Legs: thighs edema seems to be resolving and there is good definition of his proximal tibia and his patellae Scrotum is not edematous, there is no discharge from the penis Objective Last Vital Signs Temp 35.5 C L 11/12/23 08:08 Pulse 85 11/12/23 08:08 Resp 16 11/12/23 08:08 BP 122/80 11/12/23 08:08 Pulse Ox 97 11/12/23 08:08 Laboratory Results - last 24 hr 11/12/23 06:04 WBC 9.02 RBC 4.32 L Hgb 13.7 Hct 42.9 MCV 99 H MCH 31.7 MCHC 31.9 L RDW 15.1 H Plt Count 178 MPV 11.2 H Sodium 136 Potassium 3.7 Chloride 99 Carbon Dioxide 26.8 Anion Gap 10.2 BUN 134 H* Creatinine 5.0 H* Est GFR (CKD-EPI 2020) 13.05 Glucose 110 H Calcium 7.7 L Magnesium 2.5 H NT-Pro-B Natriuret Pep 35207 H Time Spent with Patient Time Spent with Patient: 25-34 minutes Time was spent: preparing to see the patient(eg.review tests), ordering medications,tests, procedures, referring, communicating with other health career orientation teacher, indepentently interpreting results, counseling the patient and care coordination
[2023-11-12 15:30] VITALS: BP 118/71
[2023-11-12] MEDS: Torsemide 20 MG TAB 60 MG PO (15:31)
[2023-11-12 15:38] VITALS: BP 111/71; PULSE 90; RESP 18; TEMP 36.9; O2SAT 93
[2023-11-12] MEDS: Lidocaine 5% Patch 1 PATCH TP (19:51)
[2023-11-12] MEDS: Insulin Glargine 300 UNITS/3 ML PEN 26 UNITS SC (19:54)
[2023-11-12 21:06] VITALS: BP 129/90; PULSE 91; RESP 18; TEMP 36.5; O2SAT 96
[2023-11-13] MEDS: Lidocaine 2% Jelly 11 ML SYR UR (02:52)
[2023-11-13 07:28] LABS: Anion Gap 12.3 mmol/L (3-11); CO2 27.7 mmol/L (21.0-32.0); Calcium 8.1 mg/dL (8.5-10.1); Chloride 100 mmol/L (98-107); Estimated GFR 13.05 (mL/min/1.73m2); Glucose 117 mg/dL (74-106); Potassium 3.7 mmol/L (3.5-5.1); Sodium 140 mmol/L (136-145)
[2023-11-13 07:33] LABS: NT-proBNP 28195 pg/mL (<300)
[2023-11-13 07:52] LABS: BUN 131 mg/dL (7-18)
[2023-11-13] MEDS: Silver sulfaDIAZINE 1% 25 GM TUBE TP (07:52)
[2023-11-13] MEDS: Triamcinolone 0.1% CR 15 GM TUBE TP ×2 (07:53→14:46)
[2023-11-13] MEDS: Normal Saline Flush 10 ML SYR IVP (07:53)
[2023-11-13] MEDS: Heparin 5,000 UNITS/ML VIAL 5000 UNITS SC ×2 (07:54→21:45)
[2023-11-13] MEDS: guaiFENesin 600 MG TABCR PO ×2 (07:56→21:48)
[2023-11-13] MEDS: Torsemide 20 MG TAB 60 MG PO ×2 (07:56→21:48)
[2023-11-13] MEDS: Multivitamin w/Minerals TAB 1 TAB PO (07:57)
[2023-11-13] MEDS: Aspirin E.C. 81 MG TABEC PO (07:58)
[2023-11-13] MEDS: Cyanocobalamin 500 MCG TAB 1000 MCG PO (07:58)
[2023-11-13] MEDS: Carvedilol 12.5 MG TAB PO ×2 (07:58→21:48)
[2023-11-13] MEDS: Pantoprazole 40 MG TABCR PO (07:58)
[2023-11-13] MEDS: Ascorbic Acid 500 MG TAB PO (07:59)
[2023-11-13] MEDS: Cholecalciferol (Vitamin D3) 1,000 UNIT TAB 1000 UNITS PO (07:59)
[2023-11-13] MEDS: Atorvastatin 10 MG TAB PO (07:59)
[2023-11-13] MEDS: Clopidogrel 75 MG TAB PO (07:59)
[2023-11-13] MEDS: Cetirizine 10 MG TAB 5 MG PO (08:00)
[2023-11-13] MEDS: Budesonide/Formoterol 160/4.5 6 GM 60 PUFF INH IH ×2 (08:09→21:47)
[2023-11-13] MEDS: Tiotropium Bromide-Respimat 10 PUFF INH 2 PUFF IH (08:09)
[2023-11-13] MEDS: Fluticasone NASAL SPRAY 16 GM BTL NS (09:10)
[2023-11-13] MEDS: Ferrous Sulfate 325 MG TAB PO (10:13)
[2023-11-13] MEDS: Patch Removal 1 EACH TP (10:14)
[2023-11-13] MEDS: Insulin Aspart 300 UNITS/3 ML PEN SC ×2 (11:57→16:56)
[2023-11-13 14:53] VITALS: BP 130/88; PULSE 90; RESP 16; TEMP 36.9; O2SAT 89
--- NOTE | 2023-11-13 16:29 | PDOC.CMPRO ---
Date of service: 11/13/23 Care Management Progress Note Progress Note Text Progress Note Text: S/O: Leroy was sitting up in bed when talking with CM. He reports he was recently admitted a week ago and had his PCP not been away, he may not have admitted again so quickly. Maverick shares he is feeling a bit better today but does not anticiapte discharging through the weekend. Leroy shared he lives with a friend who was a significant other who he moved from [facility] to [place] with. He reports he is on the waiting list for several housing lists but can continue to stay with his friend as need be. Maverick reports he is able to community mental health worker and shares he is able to help care for their dog. CM following. A: Leroy is a 53 year old admitted to [facility] 11/09/23 for CHF P:Anticipate Leroy will be discharged home when medically stable. He may benefit from [facility] RN services following discharge. He will follow up with his PCP and plan of care and transport via [facility] w/c van coordinated by CM. CM will follow and continue to assess for discharge needs. SDOH(Care Management) Screening Will the Patient Participate in the Screening?: Yes Do you worry about having a steady place to live?: yes Problems where you live: other In the past 12 months, have you had to go without electric, gas, oil or water in your home?: no Have you or anyone in your house had to go without enough food to eat?: no Has lack of transportation kept you from medical appointments or from doing things needed for daily living?: no Has anyone in your support network made you feel unsafe for any reason?: no Social Determinants of Health Comments(SDOH Details): recent breakup with in July; on assisted living waiting lists; may move back to [facility] Related Social Needs Health related social needs: housing instability, housed, with risk of homelessness(Z59.811)
--- NOTE | 2023-11-13 16:31 | PGE_ITS ---
Date of Service Date of service: 11/13/23 Time of Service: 16:31 Assessment and Plan Assessment and plan (1) Acute on chronic systolic heart failure: Status: Acute Assessment and plan: Marked improvement with IV diuretics now he is currently back on his oral diuretics of torsemide with the addition of indapamide. He continues to demonstrate good urine outputs between 2 and half to 3 L a day. His weight is down to 147 kg. We may even be able to back off his diuretics a little bit. He is currently on torsemide 60 mg twice a day I will see how his urine output is overnight and recheck his labs in the morning. This has not affected his blood pressures they have been stable in the 120s. He has had no respiratory embarrassment from his exacerbation of his CHF. He has been on room air with oxygen saturation in the mid 90s. (2) Ischemic cardiomyopathy: Status: Chronic Assessment and plan: As above. (3) Coronary artery disease: Status: Chronic Assessment and plan: No ischemic symptoms. He had mild elevation of his troponins that plateaued in the mid 300s. Qualifiers: Coronary Disease-Associated Artery/Lesion type: [place] artery [place] vs. transplanted heart: [place] heart Associated angina: without angina Qualified Code(s): I25.10 - Atherosclerotic heart disease of [place] coronary artery without angina pectoris (4) Type 2 diabetes mellitus with proliferative diabetic retinopathy without macular edema, bilateral: Status: Acute Assessment and plan: Fasting glucose of 92 this morning his other blood sugars have been in the 150s to 160s. Currently on Lantus 26 units in the evening. He is on NovoLog sliding scale moderate dose is only required a couple units at mealtime. I will decrease his evening dose of Lantus down to 22 units but continue current moderate dose sliding scale at mealtime. Qualifiers: Diabetes mellitus detention insulin use: with termite exterminator use Qualified Code(s): E11.3593 - Type 2 diabetes mellitus with proliferative diabetic retinopathy without macular edema, bilateral; Z79.4 - intermission coordinator (current) use of insulin (5) CKD (chronic kidney disease) stage 4, GFR 15-29 ml/min: Status: Acute Assessment and plan: BUN/creatinine remain elevated but are plateaued now with BUN in the 130s and creatinine of 5.0 without evidence of acidosis or hyperkalemia. He does have an elevated phosphorus level of 8.1. I have added PhosLo to his regimen. (6) DVT prophylaxis: Status: Acute Assessment and plan: heparin subcutaneously for DVT prophylaxis. (7) Discharge planning issues: Status: Acute Assessment and plan: anticipate discharge to home versus SNF depending on evaluation of PT and OT tomorrow. with follow up w/ his PCP (Dr. Deleon) and Dr. Estrada (cardiology) Subjective Subjective Interval history since last seen: Leroy is afraid to return home as he says he has been weakened by his recent recurrent hospital stays for CHF. He is also concerned that his left prosthesis does not fit properly and is concerned that his left stump will fall out of the prosthesis and because of his weakened condition he will not be able to use his upper body strength to properly perform his transfers at home. Furthermore he says his girlfriend is in no condition to help lift him. Based on this I told Leroy that while we cannot help him out with getting it properly fitted prosthesis we can at least get a PT and OT consult to evaluate him and determine where he could best be rehabbed either at home or as an inpatient therefore we will go to delay his discharge until tomorrow at which time PT and OT can evaluate and help determine where he would be best served. Exam Narrative Exam Narrative: Leroy is dressed sitting up in his chair he has his prosthesis on. I did examine his left leg and clearly he cannot get the left stump deep enough into the prosthesis for to fit firmly. He seems to have a good fit with the right prosthesis with no slack or excess space around where the prosthesis meets his stump. Objective Last Vital Signs Temp 36.9 C 11/13/23 14:53 Pulse 90 11/13/23 14:53 Resp 16 11/13/23 14:53 BP 130/88 11/13/23 14:53 Pulse Ox 89 L 11/13/23 14:53 Laboratory Results - last 24 hr 11/11/23 11/13/23 06:10 06:30 Sodium 140 Potassium 3.7 Chloride 100 Carbon Dioxide 27.7 Anion Gap 12.3 H BUN 131 H* Creatinine 5.0 H* Est GFR (CKD-EPI 2020) 13.05 Glucose 117 H Calcium 8.1 L NT-Pro-B Natriuret Pep 48579 H PTH Intact 382 H Time Spent with Patient Time Spent with Patient: 35-49 minutes Time was spent: preparing to see the patient(eg.review tests), ordering medications,tests, procedures, referring, communicating with other health campground caretaker, indepentently interpreting results, counseling the patient and care coordination
[2023-11-13 21:28] VITALS: BP 122/82; PULSE 94; RESP 18; TEMP 36.6; O2SAT 96
[2023-11-13] MEDS: Lidocaine 5% Patch 1 PATCH TP (21:45)
[2023-11-13] MEDS: Insulin Glargine 300 UNITS/3 ML PEN 22 UNITS SC (21:56)
[2023-11-14] MEDS: Lidocaine 2% Jelly 11 ML SYR UR (00:50)
[2023-11-14] MEDS: Melatonin 3 MG TAB PO (04:07)
[2023-11-14 07:54] VITALS: BP 114/76; PULSE 91; RESP 18; TEMP 36.7; O2SAT 92
[2023-11-14] MEDS: Multivitamin w/Minerals TAB 1 TAB PO (07:58)
[2023-11-14] MEDS: Atorvastatin 10 MG TAB PO (07:58)
[2023-11-14] MEDS: Aspirin E.C. 81 MG TABEC PO (07:58)
[2023-11-14] MEDS: Pantoprazole 40 MG TABCR PO (07:58)
[2023-11-14] MEDS: guaiFENesin 600 MG TABCR PO ×2 (07:58→19:47)
[2023-11-14] MEDS: Torsemide 20 MG TAB 60 MG PO (07:58)
[2023-11-14] MEDS: Ascorbic Acid 500 MG TAB PO (07:58)
[2023-11-14] MEDS: Clopidogrel 75 MG TAB PO (07:58)
[2023-11-14] MEDS: Carvedilol 12.5 MG TAB PO ×2 (07:58→19:47)
[2023-11-14] MEDS: Cholecalciferol (Vitamin D3) 1,000 UNIT TAB 1000 UNITS PO (07:58)
[2023-11-14] MEDS: Cyanocobalamin 500 MCG TAB 1000 MCG PO (07:59)
[2023-11-14] MEDS: Heparin 5,000 UNITS/ML VIAL 5000 UNITS SC ×2 (07:59→19:48)
[2023-11-14] MEDS: Cetirizine 10 MG TAB 5 MG PO (08:00)
[2023-11-14] MEDS: Fluticasone NASAL SPRAY 16 GM BTL NS (08:00)
[2023-11-14] MEDS: Insulin Aspart 300 UNITS/3 ML PEN SC ×3 (08:02→16:52)
[2023-11-14] MEDS: Budesonide/Formoterol 160/4.5 6 GM 60 PUFF INH IH ×2 (08:05→21:21)
[2023-11-14] MEDS: Tiotropium Bromide-Respimat 10 PUFF INH 2 PUFF IH (08:05)
--- NOTE | 2023-11-14 09:08 | OTIE_ITS ---
Occupational Therapy Notes Inpatient Occupational Therapy Evaluation Date: 11/14/23 Referring Doctor: Darek Reynolds MD OT Orders: Non Urgent: Limited Ability Precautions: Fall, Standard, Full PATIENT PROFILE/ADMITTING DIAGNOSIS: Pt is a 53 year old male who presented to the ED on 11/09/23 for a clinical impression of CHF (congestive heart failure), CKD (chronic kidney disease. He was admitted for further medical management of his symptoms. Past Medical History: All Active Problems (Updated 11/09/23 @ 15:45 by Merle Murphy NP) Discharge planning issues (Acute) CKD (chronic kidney disease) (Chronic) CHF (congestive heart failure) (Chronic) DVT prophylaxis (Acute) Acute on chronic systolic heart failure (Acute) Hospitalized, 12/2021, x2 .. 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 4-wheel, for hill, grass & dog.. getting to [employer] and garage and acreage.. HCM and QOL .. and working for [employer].CKD (chronic kidney disease) stage 4, GFR 15-29 ml/min (Acute) GFR @ 19-20 with elevated A1C, but @ risk of hypoglycemia..CHANEL (acute kidney injury) (Acute) Improved with diuresis and hydration @ home, but high risk for repeat episodesCKD stage 3 secondary to diabetes (Chronic) CKDOctober 2022! 08/2019 Cr 1.74 ... Elevated in 2020 2' Inf/ABx/HyperGly .. [ ] re-check 03/2021!Hypertension associated with diabetes (Acute) Persistent proteinuria associated with type 2 diabetes mellitus (Acute) Hyperglycemia due to diabetes mellitus (Acute) Diabetes mellitus with complication in adult patient (Chronic) Type 2 diabetes mellitus with diabetic polyneuropathy (Acute) Iron deficiency (Acute) History of anemia (Chronic) Coronary artery disease (Chronic) w/ dilated cardiomyopathy and (+) stress test ++> PCI/Stenting, 12/29/21Ischemic cardiomyopathy (Acute) w/ (+) stress test and PCI/Stenting, 12/29/21ICD (implantable cardioverter-defibrillator) in place (Acute) ICD, single lead, [employer] Visia 04/27/2018 [place], KYElevated brain natriuretic peptide (BNP) level (Acute) thought to be near baseline, but unclear HxLow serum albumin (Chronic) Protein WNL per 02/2022 labsChronic systolic CHF (congestive heart failure) (Acute) EF 20-25% per Jul 2023 Echo ([facility])Pulmonary hypertension (Acute) 12/29/21. [id number]. Noted during Cardiac cath, [facility]. 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 Working with [employer] re: prosthetics.. Rt, November 2020. Lft, 2018 (?)GERD (gastroesophageal reflux disease) (Chronic) PPICOPD (chronic obstructive pulmonary disease) (Chronic) Hx smoker (~10pkyr), PFTs (04/17/21).Disability examination (Acute) PFTs, 04/2021 for Disability 2' COPD.Housing or economic problem (Acute) Nasal polyp (Acute) Pt report based on past ENT 06/02/[address] Haque - surgical correction plannedAllergic rhinitis due to allergen (Acute) Nasal turbinate hypertrophy (Acute) Other chronic sinusitis (Acute) Deviated nasal septum (Acute) Seasonal allergies (Acute) Corneal opacification (Acute) OSProliferative retinopathy of both eyes (Acute) Full PRP ODVitamin D deficiency (Acute) Secondary hyperparathyroidism (Acute) Medical History SARS-CoV-2 positive (~04/14/22) Dehydration Hypercalcemia (~02/21/22) Elevated troponin Positive cardiac stress test 2021 .. Cath, with stent placement + 12/29/21.Edema of abdomen Neck pain acute .. due to sleeping on sofa?? coughing?Decreased range of motion (ROM) of right knee Flexion ok; Extension is difficult .. Continues to work with PTPsoriasis Carpal tunnel syndrome of left wrist Cubital bursitis of right elbow Diabetic foot ulcer associated with type 2 diabetes mellitus RESOLVED with amputation. 09/30/20-R heel w/cellulitis-Dr Kevin,DPM 10/16/20 Debridement by Podiatry 10/30/20 [facility] - RIGHT Heel Ulcer - cont close wound care by PodiatryHx: recurrent pneumonia walking pneumonia most vines x 3 yearsCervical neuropathy Tendonitis of long head of biceps brachii of right shoulder Bursitis of right shoulder Right shoulder pain Acute on chronic issue: now with elbow and hand pain (ulnar), with tingling.Finger pain, left Could this be gout? No injury. Trial Naproxen.Nasal polyps Erectile dysfunction Testicular cancer Surgical History S/P cardiac catheterization 12/29/21 [facility] (Dr. Jerry Ramírez). PCI (via R radial artery) of mid-LAD. Balloon angioplasty and lithotripsy.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History of amputation of left lower extremity History of amputation of great toe RightHistory of cardiac defibrillator placement History of cataract removal with insertion of prosthetic lens (~03/02/18) RightHistory of gastric bypass (~07/01/14) History of cystoscopy (~12/25/13) History of tonsillectomy (~1979) History of orchiectomy, unilateral (~06/1999) Right Social History/Home Situation: Pt states that he lives with his ex girfriend on a temporary basis. He notes that he utilizes a wheelchair to get around but does not feel that he is able to return to her home right away because he is not confident in his (I) to transfer. He notes that he needs to be (I) with this to be able to return and feel confident. He describes it as a temporary living situation. Notes that he has grab bars that are stick on and that he doesn't want to make anything permanent in regards to changes. He states that he has a walk in shower with a bench and that he is (I) with his dressing and bathing. Equipment owned/DME: grab bars, shower seat, (B) LE prothesis SUBJECTIVE: Pt was sitting in bed. He is receptive to OT consult but states that he is not confident d/t his ability to transfer with minimal support in his home setting. OBJECTIVE: General Observation: (B) LE amputations, obesity, (R) LE is not able to achieve increased straight position Mental Status: A&Ox4 Pain: c/o pain with prosthesis ROM: RUE AROM WFL despite (B) UE shoulder issues which pt notes L UE AROM WFL despite (B) UE shoulder issues which pt notes STRENGTH: RUE Shoulder flexion 4+/5, tricep/bicep 4/5, wrist extensors 4-/5, client application support engineer 4/5, supination/pronation 4-/5 LUE Shoulder flexion 4+/5, tricep/bicep 4/5, wrist extensors 4-/5, client application support engineer 4/5, supination/pronation 4-/5 In static position without weightbearing into UE pt has ideal ROM. We did not test his transfers but will defer that to PT for assessment at that time. FUNCTIONAL MOBILITY/ADLS: BATHING pt is seated in bed. He states that he is able to perform this (I). Bathing UE ideal ROM of (B) UE Bathing LE (I) DRESSING Dressing UE seated (I) with [facility] gown Dressing LE (I) donning (B) prothosis but is not confident in the one leg d/t the size of it. GROOMING ideal ROM of (B) UE so pt is (I) TOILETING Not performed with OT- pt reports that he has been transferring to the commode and notes that this is hard for him d/t his strength. EATING seated in bed (I) with no difficulty chewing or swallowing BALANCE: Static sitting Normal Dynamic Sitting Normal SPECIAL TESTS: Daily Activity Limitations Standardized Measure [facility] AM -PAC ?6 clicks? Daily Activity Inpatient Short Form: Raw score: 22 Standardized score: 47.10 CMS score: 25.80% INFORMED CONSENT/EDUCATION: Pt instructed in purpose of OT Consult and plan of care. ASSESSMENT: Patient is a 53-year-old male referred to occupational therapy services with diagnosis of weakness of (B) UE, CKD, CHF, acute on chronic systolic heart failure, type II DM. Patient presents with clinical signs and symptoms consistent with d, as demonstrated by the following impairment level findings/Functional limitations: Decreased functional activity tolerance, decreased (I) in transferring, decreased functional (I) with UE strength per pt report. OT did assess pt who is limited slight in UE strength but overall ADL/IADL ramirez very (I). He has ideal ROM. Pt does note that he has chronic shoulder issues (B) and states that his shoulder pops out but his strength in shoulder flexion is 4+/5 (B). He has ideal client application support engineer and ROM. He notes weakness with transfers and decreased LE mobility d/t his prothesis not fitting well. OT and pt discuss what it looks like for his ADL routines which he states that he is (I) with. He was able to perform his bathing (I). Based on his current level of function and need for strength OT does feel that pt is limited in his transfers d/t his strength but functionally (I) with his ADLs. He may benefit from HH strengthening vs. SNF at this time. Patient is assessed as a Low 93000 complexity based on the following: History: see above Examination:see functional limitations as noted above Presentation: evolving Decision Making: Low complexity GOALS Goals x1 week 1. Transfers (I) 2. Dressing (I) in seated position 3. Bathing (I) 4. Toileting on commode (I) 5. Eating (I) PLAN OF CARE/TREATMENT PLAN: 1x/day, 3-5 days/ week x 1week Initiate Occupational Therapy Services for bathing, dressing, grooming, toileting, eating, transfer training. DISCHARGE RECOMMENDATIONS Home with HH services for (A) with mobility issues and (B) UE strength to increase his functional (I) vs. SNF TREATMENT TIME/MINUTES/CODES 29615, 21171, 28 minutes [facility] [place], [place]
--- NOTE | 2023-11-14 09:56 | CMPROGNOTE_ITS ---
Date of service: 11/14/23 Time of Service: 09:56 Care Management Progress Note Progress Note Text Progress Note Text: S/O: Leroy was sitting up in bed when CM met with him. He stated that he met with PT earlier, and was waiting to hear what their recommendations were for discharge. CM spoke with PT who stated that Leroy appears to be hesitant to put weight on his left leg due to his fear of falling again, as his left prosthetic is not fitted as well as it should be. PT recommended that Leroy continue to work on stand/pivot on his right leg. PT recommends short term rehab at this time for him to strengthen for transfers at home. CM discussed this with Leroy, who is agreeable to going to SNF, and asked that referrals are sent to [facility] as well as the [facility] in [place]. Per report, the [facility] does not have any male beds at this time. CM sent the referral to [facility] for consideration. CM will continue to follow. A: Leroy is a 53 year old admitted to [facility] 11/09/23 for CHF P:Anticipate Leroy will be discharged home when medically stable. He may benefit from [facility] RN services following discharge. He will follow up with his PCP and plan of care and transport via [facility] w/c van coordinated by CM. CM will follow and continue to assess for discharge needs. SDOH(Care Management) Screening Will the Patient Participate in the Screening?: Yes Do you worry about having a steady place to live?: yes Problems where you live: other In the past 12 months, have you had to go without electric, gas, oil or water in your home?: no Have you or anyone in your house had to go without enough food to eat?: no Has lack of transportation kept you from medical appointments or from doing things needed for daily living?: no Has anyone in your support network made you feel unsafe for any reason?: no Social Determinants of Health Comments(SDOH Details): recent breakup with GF in July; on assisted living waiting lists; may move back to [place] [facility] Related Social Needs Health related social needs: housing instability, housed, with risk of homelessness(Z59.131)
[2023-11-14 10:29] LABS: Abs Immature Grans 0.04 10^3/uL (0.0-0.06); Absolute Monocyte Count 1.06 10^3/uL (0.1-0.8); Basophils % 0.3; Eosinophils % 4.4; HCT 43.8 % (40.0-50.0); HGB 14.5 g/dL (13.5-17.5); Immature Grans % 0.3; Lymphocytes % 5.9; MCH 31.9 pg (27.0-33.0); MCHC 33.1 % (32.0-36.0); MCV 96 fL (80-95); MPV 10.7 fL (8.0-11.0); Monocytes % 9.3; Neutrophils % 79.8; Platelet Count 184 10^3/uL (130-400); RBC 4.55 10^6/uL (4.36-5.78); RDW 15.1 % (11.8-14.1); RDW-SD 53.7 fL; WBC 11.44 10^3/uL (4.4-10.8)
[2023-11-14 10:30] LABS: Absolute Basophil Count 0.03 10^3/uL (0.0-0.2); Absolute Lymphocyte Count 0.67 10^3/uL (1.2-3.4); Absolute Neutrophil Count 9.13 10^3/uL (1.2-6.7)
[2023-11-14] MEDS: Ferrous Sulfate 325 MG TAB PO (11:17)
[2023-11-14] MEDS: Patch Removal 1 EACH TP (11:18)
--- NOTE | 2023-11-14 11:47 | W.NUTRFU ---
Date of service: 11/14/23 Time of Service: 10:30 Nutrition Note NOTE: Followed up with Uri today after the weekend. Kitchen staff left menus in his room for him/nurse to complete as staff are intimidated by his demands. Ordered to chicken broths and 2 grilled cheeses and 2 diet g'ales for lunch for about 80g carbs. He feels he should be able to order as many carbs as he wants because he doesn't eat all of them (picks the chicken salad off his sandwich for example). Explained that we want him to get quality carbs and sometimes his carbs on his trays consist of pudding, custard and a cookie - explained this added sugar, although may agree with his carb number for a meal, is not the type of carbs we want him focusing on...led into a conversation about veggies as he never orders them here. States he likes most veggies but won't eat them here because they aren't cooked to his liking. I pointed out that he has been in the hospital for well over a week between this admission and last one, and not having the fiber and slower carbs like that is something he doesn't want to get into the habit of. His potassium is wnl, trending a high phos (added renal diet for this admission appropriately). Will continue to encourage uri to keep in mind quality matters over quantity of carbs and keeping his animal protein intake in check will be beneficial (states he has had tofu and beans before just not consistently). Denies need for detailed diabetic education at this time. States most of his problems came after losing his second leg and cannot be ambulatory any more. Will continue to follow uri and work with kitchen and pt to avoid menu frustrations within his diet order. Time Spent in Nutritional Counseling and Treatment: 20 minutes
--- NOTE | 2023-11-14 14:01 | IN_ITS ---
PT Notes Visit Reasons: congestive heart failure Physical Therapy Inpatient Initial Evaluation Date: 11/14/2023 Referring Doctor: Darek Reynolds MD PT Orders: PT CONSULT: Fall safety assessment Precautions: Fall. Standard. Activity as tolerated. B BKA. Patient Profile/Admitting Diagnosis: Leroy is a 53-year-old male with diagnoses of acute on chronic systolic congestive heart failure, ischemic cardiomyoathy, CAD, Type II DM, and stage III chronic kidney disease. PMHX: All Active Problems (Updated 11/09/23 @ 15:45 by Merle Murphy NP) Discharge planning issues (Acute) CKD (chronic kidney disease) (Chronic) CHF (congestive heart failure) (Chronic) DVT prophylaxis (Acute) Acute on chronic systolic heart failure (Acute) Hospitalized, 12/2021, x2 .. 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 4-wheel, for hill, grass & dog.. getting to [employer] shop and garage and acreage.. HCM and QOL .. and working for [employer]. CKD (chronic kidney disease) stage 4, GFR 15-29 ml/min (Acute) GFR @ 19-20 with elevated A1C, but @ risk of hypoglycemia.. CHANEL (acute kidney injury) (Acute) Improved with diuresis and hydration @ home, but high risk for repeat episodes CKD stage 3 secondary to diabetes (Chronic) CKDOctober 2022! 08/2019 Cr 1.74 ... Elevated in 2020 2' Inf/ABx/HyperGly .. [ ] re-check 03/2021! Hypertension associated with diabetes (Acute) Persistent proteinuria associated with type 2 diabetes mellitus (Acute) Hyperglycemia due to diabetes mellitus (Acute) Diabetes mellitus with complication in adult patient (Chronic) Type 2 diabetes mellitus with diabetic polyneuropathy (Acute) Iron deficiency (Acute) History of anemia (Chronic) Coronary artery disease (Chronic) w/ dilated cardiomyopathy and (+) stress test ++> PCI/Stenting, 12/29/21 Ischemic cardiomyopathy (Acute) w/ (+) stress test and PCI/Stenting, 12/29/21 ICD (implantable cardioverter-defibrillator) in place (Acute) ICD, single lead, [employer] Visia 04/27/2018 [place], [place] Elevated brain natriuretic peptide (BNP) level (Acute) thought to be near baseline, but unclear Hx Low serum albumin (Chronic) Protein WNL per 02/2022 labs Chronic systolic CHF (congestive heart failure) (Acute) EF 20-25% per Jul 2023 Echo ([facility])Pulmonary hypertension (Acute) 12/29/21. [id number]. Noted during Cardiac cath, [facility]. NYHA Class IV Dermatitis, unspecified (Acute ~11/2021) 12/07/21 Dermatology Chronic posttraumatic stress disorder (Acute) History of posttraumatic stress disorder (PTSD) (Acute) Long Hx, Restarted with counselor, Madison Harris. 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 Rt, November 2020. Lft, 2018 (?) GERD (gastroesophageal reflux disease) (Chronic) PPI COPD (chronic obstructive pulmonary disease) (Chronic) Hx smoker (~10pkyr), PFTs (04/17/21).Disability examination (Acute) PFTs, 04/2021 for Disability 2' COPD. Housing or economic problem (Acute) Nasal polyp (Acute) Pt report based on past ENT 06/02/[address] Haque - surgical correction planned Allergic rhinitis due to allergen (Acute) Nasal turbinate hypertrophy (Acute) Other chronic sinusitis (Acute) Deviated nasal septum (Acute) Seasonal allergies (Acute) Corneal opacification (Acute) OS Proliferative retinopathy of both eyes (Acute) Full PRP OD Vitamin D deficiency (Acute) Secondary hyperparathyroidism (Acute) Medical History SARS-CoV-2 positive (~04/14/22) Dehydration Hypercalcemia (~02/21/22) Elevated troponin Positive cardiac stress test 2021 .. Cath, with stent placement + 12/29/21. Edema of abdomen Neck pain acute .. due to sleeping on sofa?? coughing? Decreased range of motion (ROM) of right knee Flexion ok; Extension is difficult .. Continues to work with PT Psoriasis Carpal tunnel syndrome of left wrist Cubital bursitis of right elbow Diabetic foot ulcer associated with type 2 diabetes mellitus RESOLVED with amputation. 09/30/20-R heel w/cellulitis-Dr Kevin,DPM 10/16/20 Debridement by Podiatry 10/30/20 [facility] - RIGHT Heel Ulcer - cont close wound care by Podiatry Hx: recurrent pneumonia walking pneumonia most vines x 3 years Cervical neuropathy Tendonitis of long head of biceps brachii of right shoulder Bursitis of right shoulder Right shoulder pain Acute on chronic issue: now with elbow and hand pain (ulnar), with tingling.Finger pain, left Could this be gout? No injury. Trial Naproxen. Nasal polyps Erectile dysfunction Testicular cancer Surgical History S/P cardiac catheterization 12/29/21 [facility] (Dr. Jerry Ramírez). PCI (via R radial artery) of mid-LAD. Balloon angioplasty and lithotripsy. 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 Has been a left transtibial amputee for the past 6 years, his right transtibial amputee for the 3 years. Does essential using bilateral prosthesis and walker. Has a wheelchair that he uses frequently. Welcome to stay for as long as he needs while looking for a different home setting. Equipment Owned/DME: Regular wheelchair, front-wheeled walker, bilateral axillary crutches, bilateral below-knee prostheses Subjective: Patient emphasized that DME provider for his L ill-fitting BKA prosthesis ([facility] [employer]) has been aware of the need for refitting for said device as he has had a fall because of it being loose. Patient does not want to try to stand up again until this is fixed. He said that he is in the process of looking for another home alone. His ex SO is kind enough to let him stay while until he finds another place for himself. Objective: General Observation: Resting in bed. Bilateral transfer tibial residual limbs intact, L anterior lateral residula limb with calloused area. Mental Status: Alert and oriented as to person, place, time, and purpose. Able to pay attention, focus, and respond appropriately. Pain: Chronic low back pain up to moderate level with movement ROM: Right Lower Extremity: Hip flexion WFL. Hip extension up to 10 degrees beyond neutral. Hip abduction WFL. Knee flexion 20 degrees to 90 degrees. Extension - 20 degrees. Left Lower Extremity: Hip flexion WFL. Hip extension up to 15 degrees beyond neutral. Hip abduction WFL. Knee flexion 10 degrees to 90 degrees. Extension - 10 degrees. Strength: Right Lower Extremity: Hip flexors 4/5. Hip extension 3-/5. Hip abductors 4/5. Knee flexors 3-/5. Knee extensors 3-/5. Left Lower Extremity: Hip flexors 4/5. Hip extension 3-/5. Hip abductors 4/5. Knee flexors 3-/5. Knee extensors 3-/5. Bed Mobility/Transfers: Sit to stand not tested, patient refused to stand up with an ill-fitting L BKA posthesis Stand to sit not tested, patient refused to stand up with an ill-fitting L BKA posthesis Gait: Deferred DONNING AND DOFFING OF B BKA PROSTHESIS: Patient verbalized that he has been able to don and doff socks and prosthesis without any difficulty or increase in shortness of breath. Has missed 2 consultation with [facility] due to admissions to the hospital. Balance: Static Sitting: Good Dynamic Sitting: Good Static Standing: Unable to test Dynamic Standing:Unable to test Special Tests: Mobility Limitations Standardized Measure [facility] AM-PAC 6 clicks Basic Mobility Inpatient Short Form: Raw Score: 6 CMS Score: 100% deficit Informed Consent/Education: Patient instructed in purpose of PT consult and plan of care. Agreeable to proceed with established PT POC to achieve personal goals. ASSESSMENT: L BKA prosthesis ill-fitting and has created a balance issue with patient that has increased fall risk and heightened patient's apprehension over losing balance again. Patient will not have anybody who could physically help him at home and although could transfer from couch to wheelchair could not transfer f rom wheelchair to shower chair/commode due to defective L BKA posthesis. This along with his chronic low back pain make him unable to safely manage at home and threfore will require short-term SNF placement for strengthening, L BKA issue resolution, and functional mobility progression. Will look into possibility of transfer training using stand pivot leading with R LE prosthesis. Patient is assessed as a 86934 high complexity based on the following: History: 53-year-old male with past medical history as indicated above Examination: Demonstrable impairment in strength, balance, and mobility level with underlying impairments and functional limitations as exhibited above as well as deficit score of 100% utilizing the [facility] Mobility Inpatient Short Form Presentation: Evolving Decision Makin moderate complexity Goals: Goals X1 week 1. Supine-Sit independent 2. Sit-Supine independent 3. Bed-Chair independent using stand-pivot technique with bariatric FWW vs. forward-backward transfer technique 4. Chair-Bed independent using stand-pivot technique with bariatric FWW vs. forward-backward transfer technique Plan of Care/Treatment Plan: Patient will highly benefit from skilled physical therapy services including functional mobility training, bed mobility/transfer training, gait and balance training, therapeutic exercises, therapeutic activity, caregiver/staff/family education and training 1x/day, 7 days/week x 1 week. Plan of care has been reviewed with the [employer] providing the service under Physical Therapy direction. Initiate Physical Therapy intervention for strengthening, bed mobility, transfers, balance training, and use of assistive device. DISCHARGE RECOMMENDATIONS: Patient will benefit from short-term fpc facility placement for continued skilled physical therapy services in order to progress mobility level, strength, and balance in preparation for a safe discharge to home. TREATMENT CODE/TIME: 11246 x 30 minutes for 1 unit, 05079 x 15 minutes for 1 unit (13:28-14:13). Visit patient positive biases PT guy Thank you for the opportunity to participate in the care of this patient. Jennifer Dietrich PT, DPT, CLT [facility] [place], [place]
[2023-11-14 15:29] VITALS: BP 127/86; PULSE 98; RESP 18; TEMP 36.6; O2SAT 83
[2023-11-14 15:32] VITALS: PULSE 99; O2SAT 80
--- NOTE | 2023-11-14 16:51 | PGE_ITS ---
Date of Service Date of service: 11/14/23 Time of Service: 16:51 Assessment and Plan Assessment and plan (1) Acute on chronic systolic heart failure: Status: Acute Assessment and plan: Marked improvement with IV diuretics now he is currently back on his oral diuretics of torsemide with the addition of indapamide. He continues to demonstrate good urine outputs of 3 to 5 liters per day. I think we can back off his torsemide dose a little, contiue his indampamide. His K has been much lower now, consider re starting his spironolactone at a lower dose (he was on 50 mg, I will try him on 25 mg and monitor his BMP). P.T. recommends SNF placement for short term rehab, which Leroy is willing to try. Awaiting [facility] response to referrral; continue inpatient P.T. and O.T. (2) Ischemic cardiomyopathy: Status: Chronic Assessment and plan: As above. (3) Coronary artery disease: Status: Chronic Assessment and plan: No ischemic symptoms. He had mild elevation of his troponins that plateaued in the mid 300s. Qualifiers: Coronary Disease-Associated Artery/Lesion type: [place] artery [place] vs. transplanted heart: [place] heart Associated angina: without angina Qualified Code(s): I25.10 - Atherosclerotic heart disease of [place] coronary artery without angina pectoris (4) Type 2 diabetes mellitus with proliferative diabetic retinopathy without macular edema, bilateral: Status: Acute Assessment and plan: fasting glucose no longer low, was 143 today and lunch time glucose was 140. will monitor and adjust accordingly Qualifiers: Diabetes mellitus terminal makeup operator insulin use: with skilled nursing use Qualified Code(s): E11.3593 - Type 2 diabetes mellitus with proliferative diabetic retinopathy without macular edema, bilateral; Z79.4 - terminal makeup operator (current) use of insulin (5) CKD (chronic kidney disease) stage 4, GFR 15-29 ml/min: Status: Acute Assessment and plan: BUN/creatinine remain elevated but are plateaued now with BUN in the 130s and creatinine of 5.0 without evidence of acidosis or hyperkalemia. He does have an elevated phosphorus level of 8.1. I have added PhosLo to his regimen. (6) DVT prophylaxis: Status: Acute Assessment and plan: heparin subcutaneously for DVT prophylaxis. (7) Discharge planning issues: Status: Acute Assessment and plan: anticipate discharge to home versus SNF depending on evaluation of PT and OT tomorrow. with follow up w/ his PCP (Dr. Deleon) and Dr. Estrada (cardiology) Subjective Subjective Interval history since last seen: Leroy has no new concerns, says he is just tired. NO dyspnea, leg and abdominal swelling have gone down. Per P.T. evaluation today, they recommend short term stay for SNF. I relayed this info to GERRY (Shalom) who has placed referral to [facility]. Per nursing, Leroy has had hypoxemia when he sleeps w/ SPO2 into the low 80's. Leroy says that he feels fine. We have talked about his SOULEYMANE and he won't wear a CPAP mask. I will get an overnight pulse oximetry to see how low his SPO2 goes and for how long. I think he would benefit from nocturnal oxygen therapy. Exam Narrative Exam Narrative: Leroy appears tired but no acute distress, denies any dyspnea Lungs: clear Heart: distant heart tone, but regular Abdomen: obese but soft, no induration legs: marked improvement in edema in his proximal legs and in his stumps Objective Last Vital Signs Temp 36.6 C 11/14/23 15:29 Pulse 99 H 11/14/23 15:32 Resp 18 11/14/23 15:29 BP 127/86 11/14/23 15:29 Pulse Ox 80 L 11/14/23 15:32 Laboratory Results - last 24 hr 11/14/23 10:15 WBC 11.44 H RBC 4.55 Hgb 14.5 Hct 43.8 MCV 96 H MCH 31.9 MCHC 33.1 RDW 15.1 H Plt Count 184 MPV 10.7 Immature Gran % 0.3 Neutrophils % 79.8 Lymphocytes % 5.9 Monocytes % 9.3 Eosinophils % 4.4 Basophils % 0.3 Nucleated RBC % 0.0 Absolute Neutrophils 9.13 H Absolute Lymphocytes 0.67 L Absolute Monocytes 1.06 H Absolute Eosinophils 0.50 Absolute Basophils 0.03 Time Spent with Patient Time Spent with Patient: 35-49 minutes Time was spent: preparing to see the patient(eg.review tests), ordering medications,tests, procedures, referring, communicating with other health pharmacist critical care, indepentently interpreting results, counseling the patient and care coordination
[2023-11-14] MEDS: Insulin Glargine 300 UNITS/3 ML PEN 24 UNITS SC (19:51)
[2023-11-14] MEDS: Torsemide 20 MG TAB 50 MG PO (20:01)
[2023-11-14 20:12] VITALS: BP 125/76; PULSE 94; RESP 18; O2SAT 92
[2023-11-14] MEDS: Lidocaine 5% Patch 1 PATCH TP (23:59)
[2023-11-15] MEDS: Melatonin 3 MG TAB PO (00:30)
[2023-11-15 00:33] VITALS: O2SAT 90
[2023-11-15 01:48] VITALS: BP 109/75; PULSE 95; RESP 18; TEMP 36.6; O2SAT 96
[2023-11-15 06:58] LABS: Anion Gap 8.6 mmol/L (3-11); CO2 31.4 mmol/L (21.0-32.0); Calcium 8.8 mg/dL (8.5-10.1); Chloride 101 mmol/L (98-107); Estimated GFR 13.37 (mL/min/1.73m2); Glucose 243 mg/dL (74-106); Potassium 3.5 mmol/L (3.5-5.1); Sodium 141 mmol/L (136-145)
[2023-11-15 07:01] LABS: BUN 131 mg/dL (7-18); CREATININE 4.9 mg/dL (0.70-1.30)
[2023-11-15 07:40] VITALS: O2SAT 88
[2023-11-15] MEDS: Insulin Aspart 300 UNITS/3 ML PEN SC ×3 (07:44→16:46)
[2023-11-15] MEDS: Spironolactone 25 MG TAB PO (07:46)
[2023-11-15] MEDS: Clopidogrel 75 MG TAB PO (07:46)
[2023-11-15] MEDS: Multivitamin w/Minerals TAB 1 TAB PO (07:46)
[2023-11-15] MEDS: Cyanocobalamin 500 MCG TAB 1000 MCG PO (07:46)
[2023-11-15] MEDS: Ascorbic Acid 500 MG TAB PO (07:46)
[2023-11-15] MEDS: Heparin 5,000 UNITS/ML VIAL 5000 UNITS SC ×2 (07:46→21:29)
[2023-11-15] MEDS: guaiFENesin 600 MG TABCR PO ×2 (07:46→21:19)
[2023-11-15] MEDS: Acetaminophen 325 MG TAB 650 MG PO ×2 (07:47→11:38)
[2023-11-15] MEDS: Atorvastatin 10 MG TAB PO (07:47)
[2023-11-15] MEDS: Pantoprazole 40 MG TABCR PO (07:47)
[2023-11-15] MEDS: Carvedilol 12.5 MG TAB PO ×2 (07:48→21:19)
[2023-11-15] MEDS: Aspirin E.C. 81 MG TABEC PO (07:48)
[2023-11-15] MEDS: Silver sulfaDIAZINE 1% 25 GM TUBE TP ×2 (07:48→21:21)
[2023-11-15] MEDS: Cetirizine 10 MG TAB 5 MG PO (07:48)
[2023-11-15] MEDS: Cholecalciferol (Vitamin D3) 1,000 UNIT TAB 1000 UNITS PO (07:52)
[2023-11-15] MEDS: Patch Removal 1 EACH TP (07:53)
[2023-11-15] MEDS: Tiotropium Bromide-Respimat 10 PUFF INH 2 PUFF IH (07:57)
[2023-11-15] MEDS: Budesonide/Formoterol 160/4.5 6 GM 60 PUFF INH IH ×2 (07:57→20:56)
[2023-11-15] MEDS: Torsemide 20 MG TAB 50 MG PO ×2 (08:00→21:20)
[2023-11-15 08:40] VITALS: BP 115/92; PULSE 92; RESP 19; TEMP 36.1; O2SAT 88
--- NOTE | 2023-11-15 08:53 | CMPROGNOTE_ITS ---
Date of service: 11/15/23 Time of Service: 08:54 Care Management Progress Note Progress Note Text Progress Note Text: S/O: CM spoke to admissions at [facility] today, and answered questions regarding Leroy's stay in order to clarify his needs while at [facility]. Leroy is on dupixent, which is an expensive medication that the facility does not have access to. CM met with Leroy to discuss this; Leroy stated that he can bring the medication from home and administer it himself. Per admissions at [facility], they are unable to have patients supply/administer their own medications. Leroy expressed understanding that he will not be able to have this medication while at rehab. Michael hernandez stated that he is due to take the medication, and that a friend will bring it in from home for him to have it prior to going to [facility], and that it is only given every 2 weeks. CM communicated this with admissions at [facility], who initiated the insurance authorization, which is required prior to his admission. CM will continue to follow. A: Leroy is a 53 year old admitted to [facility] 11/09/23 for CHF P:Anticipate Leroy will be discharged to SNF. He was accepted at [facility], pending insurance PA. He will transport via facility w/c van. He will follow up with his PCP and discharge plan of care. CM will follow and continue to assess for discharge needs. SDOH(Care Management) Screening Will the Patient Participate in the Screening?: Yes Do you worry about having a steady place to live?: yes Problems where you live: other In the past 12 months, have you had to go without electric, gas, oil or water in your home?: no Have you or anyone in your house had to go without enough food to eat?: no Has lack of transportation kept you from medical appointments or from doing things needed for daily living?: no Has anyone in your support network made you feel unsafe for any reason?: no Social Determinants of Health Comments(SDOH Details): recent breakup with GF in July; on assisted living waiting lists; may move back to [facility] Health Related Social Needs Health related social needs: housing instability, housed, with risk of homelessness(Z59.651)
--- NOTE | 2023-11-15 09:29 | PT.INTREAT ---
PT Notes Visit Reasons: congestive heart failure Date: 11/15/23 PRECAUTIONS: Fall. Standard. Activity as tolerated. B BKA. SUBJECTIVE: Pt in bed when approached for therapy this morning, reports back pain from sleeping in bed, agreed to participating with therapy session OBJECTIVE: ? PAIN: yes back pain from laying down VITALS: monitored by nursing Therapeutic Activities 99264: Direct one-on-one instruction in dynamic activities to improve functional performance. ?? BED MOBILITY/TRANSFERS? Rolling L/R: min A Supine-sit: ?min A ? Sit-supine: ?min A? Sit-stand: ? min A ? Stand-sit: ?? SBA? Bed-Commode:? ?CGA ? Commode-bed: chaitanya lift Provided skilled cues and instruction on performance and technique throughout. ? Therapeutic Exercises 06834: Direct one-on-one instruction in therapeutic exercises to develop strength, endurance, range of motion and flexibility. Exercises Sitting unsupported on the EOB multidirectional weight shifting L/R, forward/backward Sit to stand from the EOB 2x 20secs static standing Provided skilled instruction in proper exercise performance Provided skilled manual cues to facilitate proper muscle recruitment and/or form: ASSESSMENT:?pt able to transition from supine to sitting on the EOB for breakfast, stayed in bedside commode for half an hour before going back to bed using chaitanya lift. PLAN: Continue with balance training, global strengthening and general conditioning for improved safety, mobility and activity tolerance until pt is ready for DC. TREATMENT CODE/TIME: [id number] 30mins spread out during multiple visits with pt in the am (9:00 through 11:00am)
--- NOTE | 2023-11-15 11:27 | RESPIRATORY ---
Received report from manufacturing supervisor 2nd shift that Patient refused overnight oximetry testing.
[2023-11-15] MEDS: Ferrous Sulfate 325 MG TAB PO (11:28)
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
[2023-11-15] MEDS: Insulin Glargine 300 UNITS/3 ML PEN 26 UNITS SC (20:45)
[2023-11-15] MEDS: Lidocaine 5% Patch 1 PATCH TP (21:20)
[2023-11-15] MEDS: Triamcinolone 0.1% CR 15 GM TUBE TP (21:21)
[2023-11-15 23:48] VITALS: BP 129/86; PULSE 95; RESP 20; TEMP 36.5; O2SAT 93
[2023-11-16] MEDS: Melatonin 3 MG TAB PO (01:19)
[2023-11-16 07:13] LABS: Abs Immature Grans 0.03 10^3/uL (0.0-0.06); Absolute Basophil Count 0.04 10^3/uL (0.0-0.2); Absolute Lymphocyte Count 0.81 10^3/uL (1.2-3.4); Absolute Monocyte Count 0.96 10^3/uL (0.1-0.8); Absolute Neutrophil Count 8.13 10^3/uL (1.2-6.7); Basophils % 0.4 %; Eosinophils % 5.7 %; HCT 44.7 % (40.0-50.0); HGB 14.6 g/dL (13.5-17.5); Immature Grans % 0.3 %; Lymphocytes % 7.7 %; MCH 32.5 pg (27.0-33.0); MCHC 32.7 % (32.0-36.0); MCV 100 fL (80-95); MPV 11.2 fL (8.0-11.0); Monocytes % 9.1 %; Neutrophils % 76.8 %; Platelet Count 184 10^3/uL (130-400); RBC 4.49 10^6/uL (4.36-5.78); RDW-SD 55.2 fL; WBC 10.57 10^3/uL (4.4-10.8)
[2023-11-16 07:28] LABS: Anion Gap 10.7 mmol/L (3-11); CO2 29.3 mmol/L (21.0-32.0); Calcium 8.5 mg/dL (8.5-10.1); Chloride 99 mmol/L (98-107); Glucose 295 mg/dL (74-106); Potassium 3.5 mmol/L (3.5-5.1); Sodium 139 mmol/L (136-145)
[2023-11-16 07:35] LABS: BUN 129 mg/dL (7-18); CREATININE 4.5 mg/dL (0.70-1.30)
[2023-11-16 07:45] LABS: PHOSPHORUS 5.5 mg/dL (2.6-4.7)
--- NOTE | 2023-11-16 08:08 | OT.INTREAT ---
Date of service: 11/16/23 Occupational Therapy Notes 11/16/23 Pt states that he is not able to transfer because his leg doesn't fit him well and notes that he has a shoulder that is bothering him. He reports that he feels that if he could sit slight higher then he would be able to (A) more. OT and 2 ursing staff were unable to (A) pt in the sit to stand mechanism and be able to transfer from commode to bed. Therefore Magan lift was utilized for pts safety. Therapeutic Exercise [id number]: OT educated and trained pt in UE strengthening to (A) with his functional (I) in transferring to increase his (I). Pt performed the following exercises with blue band at todays session 10 reps each: Bicep curls (B) Shoulder flexion (B) PNF patterns both ways (B) Shoulder extension Scap retractions Triceps (B) Straight arm abductions IR/ER Pt was educated to perform this every hour 10 reps each. OT will progress as pt allows. Aura Morales, OTR/L [facility]
[2023-11-16] MEDS: Budesonide/Formoterol 160/4.5 6 GM 60 PUFF INH IH ×2 (08:21→20:22)
[2023-11-16] MEDS: Tiotropium Bromide-Respimat 10 PUFF INH 2 PUFF IH (08:21)
[2023-11-16] MEDS: Aspirin E.C. 81 MG TABEC PO (09:06)
[2023-11-16] MEDS: Torsemide 20 MG TAB 50 MG PO ×2 (09:06→20:55)
[2023-11-16] MEDS: Ascorbic Acid 500 MG TAB PO (09:06)
[2023-11-16] MEDS: Cyanocobalamin 500 MCG TAB 1000 MCG PO (09:06)
[2023-11-16] MEDS: Carvedilol 12.5 MG TAB PO ×2 (09:07→20:52)
[2023-11-16] MEDS: Atorvastatin 10 MG TAB PO (09:07)
[2023-11-16] MEDS: guaiFENesin 600 MG TABCR PO ×2 (09:07→20:53)
[2023-11-16] MEDS: Multivitamin w/Minerals TAB 1 TAB PO (09:07)
[2023-11-16] MEDS: Cetirizine 10 MG TAB 5 MG PO (09:07)
[2023-11-16] MEDS: Cholecalciferol (Vitamin D3) 1,000 UNIT TAB 1000 UNITS PO (09:07)
[2023-11-16] MEDS: Pantoprazole 40 MG TABCR PO (09:08)
[2023-11-16] MEDS: Ferrous Sulfate 325 MG TAB PO (09:08)
[2023-11-16] MEDS: Spironolactone 25 MG TAB PO (09:08)
[2023-11-16] MEDS: Insulin Aspart 300 UNITS/3 ML PEN SC ×3 (09:09→18:43)
[2023-11-16] MEDS: Triamcinolone 0.1% CR 15 GM TUBE TP ×3 (09:09→20:55)
[2023-11-16] MEDS: Clopidogrel 75 MG TAB PO (09:09)
[2023-11-16] MEDS: Silver sulfaDIAZINE 1% 25 GM TUBE TP ×2 (09:09→20:54)
[2023-11-16] MEDS: Heparin 5,000 UNITS/ML VIAL 5000 UNITS SC ×2 (09:09→20:52)
--- NOTE | 2023-11-16 10:14 | PDOC.CMPRO ---
Date of service: 11/16/23 Time of Service: 10:15 Care Management Progress Note Progress Note Text Progress Note Text: S/O: Leroy will discharge to SNF for STR. PA was approved today and there is a bed offer at [facility] when he is medically ready. Anticipate Leroy will be medically ready for discharge tomorrow. Leroy is on dupixent, which is an expensive medication that the facility does not have access to. Leroy is planning on having his friend bring the medication from home and administer it himself. Per admissions at [facility], they are unable to have patients supply/administer their own medications. Leroy expressed understanding that he will not be able to have this medication while at rehab. He stated that he is due to take the medication, and that a friend will bring it in from home for him to have it prior to going to [facility], and that it is only given every 2 weeks. CM communicated this with admissions at [facility]. CM will continue to follow. A: Leroy is a 53 year old admitted to [facility] 11/09/23 for CHF P:Anticipate Leroy will be discharged to SNF. He was accepted at [facility], when medically ready. PA was approved by insurance. He will transport via facility w/c van. He will follow up with his PCP and discharge plan of care. CM will follow and continue to assess for discharge needs. SDOH(Care Management) Screening Will the Patient Participate in the Screening?: Yes Do you worry about having a steady place to live?: yes Problems where you live: other In the past 12 months, have you had to go without electric, gas, oil or water in your home?: no Have you or anyone in your house had to go without enough food to eat?: no Has lack of transportation kept you from medical appointments or from doing things needed for daily living?: no Has anyone in your support network made you feel unsafe for any reason?: no Social Determinants of Health Comments(SDOH Details): recent breakup with in July; on assisted living waiting lists; may move back to [place] [facility] Related Social Needs Health related social needs: housing instability, housed, with risk of homelessness(Z59.811)
[2023-11-16] MEDS: Patch Removal 1 EACH TP (10:24)
[2023-11-16 11:37] VITALS: BP 124/76; PULSE 95; RESP 18; TEMP 36.5; O2SAT 94
--- NOTE | 2023-11-16 11:48 | PGE_ITS ---
Date of Service Date of service: 11/16/23 Time of Service: 11:48 Assessment and Plan Assessment and plan (1) Acute on chronic systolic heart failure: Status: Acute Assessment and plan: -improving, continues to void over 3 liters UO per day. -continue torsemide 50 mg bid, indapamide 5 mg daily, spironolactone resumed at lower dose 25 mg daily; watch electrolytes for hyperkalemia, continue Farxiga. (2) Ischemic cardiomyopathy: Status: Chronic Assessment and plan: -HFPEF, continue meds as above. (3) Coronary artery disease: Status: Chronic Assessment and plan: -no symptoms of ischemia this admission although he had mildly elevated troponin on admission but not changed from his other admissions, suspect chronically elevated from his CKD Qualifiers: Coronary Disease-Associated Artery/Lesion type: [place] artery [place] vs. transplanted heart: [place] heart Associated angina: without angina Qualified Code(s): I25.10 - Atherosclerotic heart disease of [place] coronary artery without angina pectoris (4) Type 2 diabetes mellitus with proliferative diabetic retinopathy without macular edema, bilateral: Status: Acute Assessment and plan: -fasting glucose higher today at 234, noon 181, I had cut his night time Lantus down d/t low glucose readings under 100. -goal is for glucose fasting under 140 and others under 180. Home Lantus dose was 35 and I had cut back considerably but now he is needs higher coverage. -He does not particularly like hospital food choices and I noted that he has a lot of outside snacks on his table so I suspect he is getting more carbs than his diet is ordered. 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 -contiunue PhosLo for his hyperphosphatemia. -Calcium level is acceptable but needs to be monitored while on PhosLo; consider Renagel (Sevalamer) for retirement control (we do not carry this at [facility]). (6) DVT prophylaxis: Status: Acute Assessment and plan: -heparin subcutaneously for DVT prophylaxis. (7) Discharge planning issues: Status: Acute Assessment and plan: -referral placed by case management to [facility]. Subjective Subjective Interval history since last seen: Patient states that he is doing well today and understands that he is waiting for subacute rehab placement. Exam Narrative Exam Narrative: Chronically ill-appearing gentleman lying in bed in no acute distress, ANO x 4, heart regular rhythm, lungs clear to auscultation bilaterally Abdomen soft, nontender, nondistended, bilateral BKA with significantly improved edema Objective Last Vital Signs Temp 97.7 F 11/16/23 11:37 Pulse 95 H 11/16/23 11:37 Resp 18 11/16/23 11:37 BP 124/76 11/16/23 11:37 Pulse Ox 94 11/16/23 11:37 Laboratory Results - last 24 hr 11/16/23 06:38 WBC 10.57 RBC 4.49 Hgb 14.6 Hct 44.7 MCV 100 H D MCH 32.5 MCHC 32.7 RDW 15.0 H Plt Count 184 MPV 11.2 H Immature Gran % 0.3 Neutrophils % 76.8 Lymphocytes % 7.7 Monocytes % 9.1 Eosinophils % 5.7 Basophils % 0.4 Nucleated RBC % 0.0 Absolute Neutrophils 8.13 H Absolute Lymphocytes 0.81 L Absolute Monocytes 0.96 H Absolute Eosinophils 0.60 Absolute Basophils 0.04 Sodium 139 Potassium 3.5 Chloride 99 Carbon Dioxide 29.3 Anion Gap 10.7 BUN 129 H* Creatinine 4.5 H* Est GFR (CKD-EPI 2020) 14.80 Glucose 295 H Calcium 8.5 Phosphorus 5.5 H Time Spent with Patient Time Spent with Patient: >50 minutes Time was spent: preparing to see the patient(eg.review tests), obtaining and/or reviewing separately otained hiistory, ordering medications,tests, procedures, referring, communicating with other health customer care consultant, indepentently interpreting results, counseling the patient and care coordination
--- NOTE | 2023-11-16 11:52 | PT.INTREAT ---
PT Notes Visit Reasons: congestive heart failure Date: 11/16/23 PRECAUTIONS: Fall. Standard. Activity as tolerated. B BKA. SUBJECTIVE: Pt in bed when approached for therapy this morning, pt agreed to participating with session after he got done with phone call. OBJECTIVE: ? PAIN: yes back pain from laying down VITALS: monitored by nursing Therapeutic Activities [id number]: Direct one-on-one instruction in dynamic activities to improve functional performance. ?? BED MOBILITY/TRANSFERS? Rolling L/R: min A Supine-sit: ?min A ? Sit-supine: ?min A? Sit-stand: ? min A ? Stand-sit: ?? SBA? Bed-Commode:? ?CGA ? Commode-bed: chaitanya lift Provided skilled cues and instruction on performance and technique throughout. ? Therapeutic Exercises [id number]: Direct one-on-one instruction in therapeutic exercises to develop strength, endurance, range of motion and flexibility. Exercises Sitting unsupported on the EOB multidirectional weight shifting L/R, forward/backward Sit to stand from the EOB 1x 20secs static standing Provided skilled instruction in proper exercise performance Provided skilled manual cues to facilitate proper muscle recruitment and/or form: ASSESSMENT:?pt performed same sequence as yesterday doing stand pivot transfer going to the commode with pt refusing further engagement after getting situated on bedside commode. pt prefers to return to bed from the commode via chaitanya lift. PLAN: Continue with balance training, global strengthening and general conditioning for improved safety, mobility and activity tolerance until pt is ready for DC. TREATMENT CODE/TIME: [id number] 25mins (11:15 through 11:40am)
[2023-11-16 15:05] VITALS: BP 130/87; PULSE 94; RESP 22; TEMP 36.5; O2SAT 92
[2023-11-16 20:27] VITALS: PULSE 86; O2SAT 90
[2023-11-16] MEDS: Insulin Glargine 300 UNITS/3 ML PEN 26 UNITS SC (20:53)
[2023-11-16] MEDS: Lidocaine 5% Patch 1 PATCH TP (20:54)
[2023-11-16 22:56] VITALS: BP 131/93; PULSE 93; RESP 16; TEMP 36.4; O2SAT 88
[2023-11-17] MEDS: Melatonin 3 MG TAB PO (01:38)
--- NOTE | 2023-11-17 07:25 | DSE_ITS ---
Date of service: 11/17/23 Time of Service: 07:25 DS: Diagnosis Discharge Diagnosis (1) Acute on chronic systolic heart failure: Status: Acute Asessment and Plan: -significant improvement during hospitalization after aggressive dieresis -continue torsemide 50 mg bid, indapamide 5 mg daily, spironolactone resumed at lower dose 25 mg daily; watch electrolytes for hyperkalemia, continue Farxiga. (2) Ischemic cardiomyopathy: Status: Chronic Asessment and Plan: -HFPEF, continue meds as above. (3) Coronary artery disease: Status: Chronic (4) Type 2 diabetes mellitus with proliferative diabetic retinopathy without macular edema, bilateral: Status: Acute Asessment and Plan: -HS lantus changed to 26 units -continue remainder or outpatient regimen (5) CKD (chronic kidney disease) stage 4, GFR 15-29 ml/min: Status: Acute Asessment and Plan: -appears to be new baseline BUN 130 and creatinine 5 -he should follow up w/ his advanced practice registered nurse upon discharge. -contiunue PhosLo for his hyperphosphatemia. -Calcium level is acceptable but needs to be monitored while on PhosLo; consider Renagel (Sevalamer) for care home control (we do not carry this at [facility]). (6) DVT prophylaxis: Status: Acute (7) Discharge planning issues: Status: Acute Discharge Plan Disposition Patient Disposition: Intermediate Facility(SNF) Condition: Good Discharge Details Reason For Visit: congestive heart failure Admit Date/Time: 11/13/23 07:24 Admit Provider: Koby Cuello Attending Provider: Koby Cuello Primary Care Provider: Candice Perez Hospital Course Hospital Course: Patient initially presented with signs and symptoms that were determined to be consistent with an exacerbation of congestive heart failure. He was aggressively diuresed during hospitalization and had significant improvement of his symptoms. However, during hospitalization patient had significant weakness and was determined to require discharge to subacute rehab. Home Meds and New Rx's Prescriptions: New torsemide 20 mg Tablet 50 mg PO BID Qty: 90 0RF indapamide 2.5 mg Tablet 5 mg PO DAILY Qty: 90 0RF spironolactone 25 mg Tablet 25 mg PO DAILY Qty: 90 0RF Continued multivitamin with iron Tablet 1 tab PO DAILY Qty: 90 3RF Rx Instructions: Take one tablet daily by mouth ferrous sulfate 325 mg (65 mg iron) tablet 325 mg PO DAILY Rx Instructions: [facility] Nurse Healthcare Manager nicotine (polacrilex) [Nicorette] 2 mg lozenge 2 mg buccal Q6H PRN (Reason: nicotine cravings) Qty: 108 1RF Hold Instructions: Home Medication placed on hold at Doctor's office halobetasol propionate 0.05 % cream 1 applic topical DAILY PRN Hold Instructions: Home Medication placed on hold at Doctor's office Rx Instructions: 12/07/21 apply 1-2x/day qd for 7-14 days, then 1 week off, and repeat as needed acetaminophen 325 mg tablet 650 mg PO Q4H PRN (Reason: fever or pain) Qty: 180 1RF azelastine 137 mcg (0.1 %) aerosol,spray See Rx Instructions intranasal BID Qty: 30 1RF Rx Instructions: 1-2 sprays intranasal twice a day; administer into each nostril fluticasone propion-salmeterol [Advair Diskus] 250-50 mcg/dose blister with device 1 inh inhalation BID Qty: 60 0RF levalbuterol tartrate 45 mcg/actuation HFA aerosol inhaler 2 inh inhalation Q6H PRN PRN (Reason: shortness of breath or wheezing) Qty: 15 0RF silver sulfadiazine 1 % cream 1 applic topical BID Qty: 400 3RF Hold Instructions: Home Medication placed on hold at Doctor's office Rx Instructions: apply a 1.5 mm thickness to lower leg surgical site clobetasol 0.05 % spray,non-aerosol 1 applic topical BID 7 Days Qty: 59 1RF Rx Instructions: not to exceed 26 sprays per single application fluticasone propionate [Allergy Relief (fluticasone)] 50 mcg/actuation spray,suspension 1 spray intranasal DAILY Qty: 16 1RF Rx Instructions: administer into each nostril carvedilol 12.5 mg tablet 12.5 mg PO BID Qty: 180 3RF Rx Instructions: must administer with a meal/food aspirin 81 mg tablet,delayed release (DR/EC) 81 mg PO DAILY Qty: 90 3RF atorvastatin 10 mg tablet 10 mg PO DAILY Qty: 90 3RF cetirizine 10 mg tablet 10 mg PO DAILY Qty: 90 3RF cholecalciferol (vitamin D3) 25 mcg (1,000 unit) capsule 25 mcg PO DAILY Qty: 90 3RF cyanocobalamin (vitamin B-12) 1,000 mcg capsule 1,000 mcg PO DAILY Qty: 90 3RF pantoprazole 40 mg tablet,delayed release (DR/EC) 40 mg PO DAILY Qty: 90 3RF clopidogrel 75 mg tablet 75 mg PO DAILY Qty: 30 5RF Rx Instructions: take separately from reflux medication. guaifenesin 600 mg tablet extended release 12hr 600 mg PO BID Qty: 20 1RF Farxiga 5 mg tablet See Rx Instructions .ROUTE .COMPLEX Qty: 28 10RF Dose Instruction: TAKE 1 TABLET BY MOUTH DAILY FOR TYPE 2 DIABETES MELLITUS NOT AT GOAL, STAGE 3 CKD Rx Instructions: TAKE 1 TABLET BY MOUTH DAILY FOR TYPE 2 DIABETES MELLITUS NOT AT GOAL, STAGE 3 CKD ascorbic acid (vitamin C) 1,000 mg tablet 500 mg PO DAILY Qty: 90 3RF Rx Instructions: Doses exceeding 500mg daily will invalidate CGM sensor. 02/04/22 EO insulin lispro [Humalog KwikPen Insulin] 100 unit/mL insulin pen 1 sliding scale dose subcut USEASDIRECTD MDD 50 units Qty: 15 3RF Rx Instructions: [facility] Endo - current correction of 1u:30mg/dl, starting at 130mg/dl per pt. 01/06/21 Spiriva Respimat 2.5 mcg/actuation mist See Rx Instructions .ROUTE .COMPLEX Qty: 4 3RF Dose Instruction: INHALE 2 PUFFS BY MOUTH DAILY Rx Instructions: INHALE 2 PUFFS BY MOUTH DAILY Ozempic 0.25 mg or 0.5 mg (2 mg/3 mL) pen injector 0.5 mg subcut QWEEK Qty: 3 2RF Rx Instructions: for 4 weeks minimum; may increase to 1mg (TBD with CDE/Pharmacist or PCP) Dupixent Syringe 300 mg/2 mL syringe 300 mg SUBCUT Q2W Changed insulin glargine [Lantus Solostar U-100 Insulin] 100 unit/mL (3 mL) insulin pen 26 unit subcut QPM Qty: 35 3RF Discontinued spironolactone 50 mg tablet 50 mg PO DAILY Qty: 90 2RF Rx Instructions: Continue (with possible BID use if torsemide increased 2' acute edema) torsemide 20 mg tablet 100 mg PO DAILY Hold Instructions: Resume on 11/15/23. hold until you see your PCP or restart if you notice worsening of your LE edema Rx Instructions: Rx changed 07/21/23 torsemide 20 mg tablet See Rx Instructions PO DAILY PRN (Reason: acute edema, abd swelling, dyspnea (MAY NEED LABS)) Qty: 100 1RF Hold Instructions: Resume on 11/15/23. hold until you see your PCP or restart if you notice worsening of your LE edema Rx Instructions: Additional 1-4 tabs, based on weight gain & d/w PCP orally daily PRN; Special EXTRA dose, per d/w Med Team No Action (DME) Left Outer Sleeve See Rx Instructions .Route .MEDSUPPLY Qty: 1 0RF Rx Instructions: As directed (DME) Right prosthetic socket See Rx Instructions .Route .MEDSUPPLY Qty: 1 0RF Rx Instructions: As directed (DME) glucometer WITH MATCHING TEST STRIPS See Rx Instructions .Route .MEDSUPPLY Qty: 1 0RF Rx Instructions: Using TID until CGM available, then as back-up (DME) lancets Misc See Rx Instructions .ROUTE .MEDSUPPLY Qty: 300 3RF Rx Instructions: To check blood glucose three times daily. On insulin. Dispense covered brand. (DME) Sleeve, Left BKA See Rx Instructions .Route .MEDSUPPLY Qty: 1 0RF Rx Instructions: Per measure & fit by [employer] (DME) Sleeve, Right BKA See Rx Instructions .Route .MEDSUPPLY Qty: 1 0RF Rx Instructions: Per measure & fit by [employer] (DME) Dexcom G7 Sensor Device See Rx Instructions .Route Qty: 3 11RF Rx Instructions: For A1C < 7.5, DM E11.8 (36 per year) (DME) Dexcom G7 [facility] Of Internal Medicine Misc See Rx Instructions .Route Qty: 1 3RF Rx Instructions: As directed to manage DM, E11.8 - 36 Sensors/year. A1C < 7.5 (DME) Amputation Compression Sleeve See Rx Instructions .Route .MEDSUPPLY Qty: 1 0RF Rx Instructions: Please provide and fit a compression sleeve to the left BKA stump for appropriate prosthesis wear. (DME) fore arm cuff crutches See Rx Instructions .Route .MEDSUPPLY Qty: 1 0RF Rx Instructions: dispense 1 pair (DME) FreeStyle Luis 2 [place] Misc See Rx Instructions .ROUTE .MEDSUPPLY Qty: 1 0RF Hold Instructions: Home Medication placed on hold at Doctor's office Rx Instructions: As directed (DME) FreeStyle Luis 2 Sensor Kit See Rx Instructions .ROUTE .MEDSUPPLY Qty: 6 3RF Hold Instructions: Home Medication placed on hold at Doctor's office Rx Instructions: As directed (DME) Contour Test Strips Strip See Rx Instructions .Route Qty: 100 2RF Rx Instructions: DX E11.9 Check BS TID use as back up if CGM fails. (DME) pen needle, diabetic [BD Ultra-Fine Mini Pen Needle] 31 gauge x 3/16 needle See Rx Instructions .Route Qty: 300 3RF Rx Instructions: As directed for injecting Lantus/humalog to maintain A1C < 7, DM E11.8 Discharge Instructions Activity:: Activity as Tolerated Equipment/Supplies:: No Equipment Needed Diet:: Carb Counting Discharge Orders Discharge Orders: Discharge Order (Routine); Ordered 11/17/23 Ordered By: Ascencion Regan DS: Summary Time Spent with Patient providing and/or coordinating discharge services: Greater than 30 minutes Status at Discharge Functional status at discharge: wheelchair bound Overall status at discharge: patient is back to baseline Mental Status: mental status grossly normal Speech and Movement: speech and movement normal Mood: congruent mood Affect: normal affect Quality:SDOH Health Related Social Needs: Health related social needs risk of homeless Exam Narrative Exam Narrative: Chronically ill-appearing gentleman lying in bed in no acute distress, ANO x 4, heart regular rhythm, lungs clear to auscultation bilaterally Abdomen soft, nontender, nondistended, bilateral BKA with significantly improved edema Psych Mental Status: mental status grossly normal Speech and Movement: speech and movement normal Mood: congruent mood Affect: normal affect DS: Data Vitals/I&O Vitals and I&O: Vital Signs Temperature 97.5 F L 11/16/23 22:56 Temperature Source Tympanic 11/16/23 15:05 Pulse 93 H 11/16/23 22:56 Pulse Rhythm Regular 11/17/23 00:00 Pulse 88 11/09/23 14:20 Respiratory Rate 16 11/16/23 22:56 Respiratory Effort Normal, Non-Labored 11/17/23 00:00 Respiratory Depth Normal 11/17/23 00:00 Respiratory Pattern Normal 11/17/23 00:00 Blood Pressure 131/93 H 11/16/23 22:56 Blood Pressure Mean 128 11/09/23 14:01 Pulse Oximetry 88 L 11/16/23 22:56 Oxygen Delivery Method Room Air 11/16/23 22:56 Oxygen Flow Rate 0 11/16/23 22:56 Pain Level 0 11/16/23 22:56 Comment Oxygen 88-90 % attempted to initiate 1-2L oxygen, patient adamantly re fused intervention. primary nurse informed 11/16/23 22:56 Comment sleeping 11/09/23 12:40 Intake & Output 11/16/23 11/17/23 11/17/23 17:59 05:59 17:59 Intake Total 1210 / 1210 Output Total 1800 / 1800 1925 / 3725 Balance -590 / -590 -1925 / -2515 Weight 331 lb 11.681 oz Intake: IV Oral 1200 / 1200 Output: Urine 1800 / 1800 1925 / 3725 Other: Urine Color Yellow Yellow Urine Appearance Clear Clear Urine Odor Normal Normal Voiding Methods Urinal Urinal Data Completed and Pending Labs on day of discharge: Labs from last 24 hours 11/16/23 06:38 Sodium 139 Potassium 3.5 Chloride 99 Carbon Dioxide 29.3 Anion Gap 10.7 BUN 129 H* Creatinine 4.5 H* Est GFR (CKD-EPI 2020) 14.80 Glucose 295 H Calcium 8.5 Phosphorus 5.5 H PFSH All Active Problems (Updated 11/13/23 @ 19:51 by Darek Reynolds MD) Discharge planning issues (Acute) CKD (chronic kidney disease) (Chronic) CHF (congestive heart failure) (Chronic) DVT prophylaxis (Acute) Acute on chronic systolic heart failure (Acute) Hospitalized, 12/2021, x2 .. with successful diuresis. Type 2 diabetes mellitus with proliferative diabetic retinopathy without macular edema, bilateral (Acute) COVID (Acute ~06/22/23) Edema (Acute) Hyperphosphatemia associated with renal failure (Acute) Decreased ambulation status (Acute) Scooter, for outside .. 4-wheel, for hill, grass & dog.. getting to basement shop and garage and acreage.. HCM and QOL .. and working for [employer]. CKD (chronic kidney disease) stage 4, GFR 15-29 ml/min (Acute) GFR @ 19-20 with elevated A1C, but @ risk of hypoglycemia.. CHANEL (acute kidney injury) (Acute) Improved with diuresis and hydration @ home, but high risk for repeat episod es CKD stage 3 secondary to diabetes (Chronic) CKDOctober 2022! 08/2019 Cr 1.74 ... Elevated in 2020 2' Inf/ABx/HyperGly .. [ ] re-check 03/2021! Hypertension associated with diabetes (Acute) Persistent proteinuria associated with type 2 diabetes mellitus (Acute) Hyperglycemia due to diabetes mellitus (Acute) Diabetes mellitus with complication in adult patient (Chronic) Type 2 diabetes mellitus with diabetic polyneuropathy (Acute) Iron deficiency (Acute) History of anemia (Chronic) Coronary artery disease (Chronic) w/ dilated cardiomyopathy and (+) stress test ++> PCI/Stenting, 12/29/21 Ischemic cardiomyopathy (Chronic) w/ (+) stress test and PCI/Stenting, 12/29/21 ICD (implantable cardioverter-defibrillator) in place (Acute) ICD, single lead, Med[employer]onic Visia 04/27/2018 [place], [place] Elevated brain natriuretic peptide (BNP) level (Acute) thought to be near baseline, but unclear Hx Low serum albumin (Chronic) Protein WNL per 02/2022 labs Chronic systolic CHF (congestive heart failure) (Acute) EF 20-25% per Jul 2023 Echo ([facility]) Pulmonary hypertension (Acute) 12/29/21. [id number]. Noted during Cardiac cath, [facility]. NYHA Class IV Dermatitis, unspecified (Acute ~11/2021) 12/07/21 Dermatology Chronic posttraumatic stress disorder (Acute) History of posttraumatic stress disorder (PTSD) (Acute) Long Hx, Restarted with counselor, Madison Harris. 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 Working with [employer] re: prosthetics.. Rt, November 2020. Lft, 2018 (?) GERD (gastroesophageal reflux disease) (Chronic) PPI COPD (chronic obstructive pulmonary disease) (Chronic) Hx smoker (~10pkyr), PFTs (04/17/21). Disability examination (Acute) PFTs, 04/2021 for Disability 2' COPD. Housing or economic problem (Acute) Nasal polyp (Acute) Pt report based on past ENT 06/02/[address] Haque - surgical correction planned Allergic rhinitis due to allergen (Acute) Nasal turbinate hypertrophy (Acute) Other chronic sinusitis (Acute) Deviated nasal septum (Acute) Seasonal allergies (Acute) Corneal opacification (Acute) OS Proliferative retinopathy of both eyes (Acute) Full PRP OD Vitamin D deficiency (Acute) Secondary hyperparathyroidism (Acute) Medical History SARS-CoV-2 positive (~04/14/22) Dehydration Hypercalcemia (~02/21/22) Elevated troponin Positive cardiac stress test 2021 .. Cath, with stent placement + 12/29/21. Edema of abdomen Neck pain acute .. due to sleeping on sofa?? coughing? Decreased range of motion (ROM) of right knee Flexion ok; Extension is difficult .. Continues to work with PT Psoriasis Carpal tunnel syndrome of left wrist Cubital bursitis of right elbow Diabetic foot ulcer associated with type 2 diabetes mellitus RESOLVED with amputation. 09/30/20-R heel w/cellulitis-Dr Kevin,DPM 10/16/20 Debridement by Podiatry 10/30/20 [facility] Vascular - RIGHT Heel Ulcer - cont close wound care by Podiatry Hx: recurrent pneumonia walking pneumonia most vines x 3 years Cervical neuropathy Tendonitis of long head of biceps brachii of right shoulder Bursitis of right shoulder Right shoulder pain Acute on chronic issue: now with elbow and hand pain (ulnar), with tingling. Finger pain, left Could this be gout? No injury. Trial Naproxen. Nasal polyps Erectile dysfunction Testicular cancer Surgical History S/P cardiac catheterization 12/29/21 [facility] (Dr. Jerry Ramírez). PCI (via R radial artery) of mid-LAD. Balloon angioplasty and lithotripsy. 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 History of amputation of left lower extremity History of amputation of great toe Right History of cardiac defibrillator placement History of cataract removal with insertion of prosthetic lens (~03/02/18) Right History of gastric bypass (~07/01/14) History of cystoscopy (~12/25/13) History of tonsillectomy (~1979) History of orchiectomy, unilateral (~06/1999) Right Family History Mother Diabetes Father Diabetes Heart disease Hypertension Sister Diabetes Brother Diabetes Brother Diabetes Heart disease Hypertension Social History Smoking/Tobacco Use Status: Former Tobacco Use Quit Date: 07/18/98 Tobacco: How many years used: 10 Smoking risk assessment performed?: Yes Alcohol Intake: current Alcohol Intake frequency: 0-2 drinks per day Alcohol type: hard liquor Drug use: Never Substance use type: does not use Adopted: No Caregiver/Support person: No Foster care: No Household members: significant other Housing: house Do you need help understanding health information?: Rarely current occupation: Unemployed Sexually active: Yes Do you think of yourself as: straight/heterosexual Current gender identity: male Do you feel safe at home: Yes (getting out of relationship) Do you feel safe in your relationship?: Yes Additional Social history: moving out Time Spent with Patient Time Spent with Patient: <45 minutes Time was spent: preparing to see the patient(eg.review tests), obtaining and/or reviewing separately otained hiistory, ordering medications,tests, procedures, referring, communicating with other health career placement specialist, indepentently interpreting results, counseling the patient and care coordination
[2023-11-17 07:53] VITALS: BP 120/81; PULSE 81; RESP 16; TEMP 36.2; O2SAT 89
[2023-11-17] MEDS: Budesonide/Formoterol 160/4.5 6 GM 60 PUFF INH IH (08:07)
[2023-11-17] MEDS: Tiotropium Bromide-Respimat 10 PUFF INH 2 PUFF IH (08:07)
[2023-11-17] MEDS: Insulin Aspart 300 UNITS/3 ML PEN SC ×2 (08:38→12:18)
[2023-11-17] MEDS: Heparin 5,000 UNITS/ML VIAL 5000 UNITS SC (08:39)
[2023-11-17] MEDS: Triamcinolone 0.1% CR 15 GM TUBE TP (08:39)
[2023-11-17] MEDS: Silver sulfaDIAZINE 1% 25 GM TUBE TP (08:39)
[2023-11-17] MEDS: Cetirizine 10 MG TAB 5 MG PO (08:39)
[2023-11-17] MEDS: Cholecalciferol (Vitamin D3) 1,000 UNIT TAB 1000 UNITS PO (08:40)
[2023-11-17] MEDS: Pantoprazole 40 MG TABCR PO (08:40)
[2023-11-17] MEDS: guaiFENesin 600 MG TABCR PO (08:40)
[2023-11-17] MEDS: Ascorbic Acid 500 MG TAB PO (08:40)
[2023-11-17] MEDS: Spironolactone 25 MG TAB PO (08:40)
[2023-11-17] MEDS: Carvedilol 12.5 MG TAB PO (08:40)
[2023-11-17] MEDS: Multivitamin w/Minerals TAB 1 TAB PO (08:41)
[2023-11-17] MEDS: Ferrous Sulfate 325 MG TAB PO (08:41)
[2023-11-17] MEDS: Torsemide 20 MG TAB 50 MG PO (08:41)
[2023-11-17] MEDS: Atorvastatin 10 MG TAB PO (08:41)
[2023-11-17] MEDS: Clopidogrel 75 MG TAB PO (08:41)
[2023-11-17] MEDS: Cyanocobalamin 500 MCG TAB 1000 MCG PO (08:41)
[2023-11-17] MEDS: Aspirin E.C. 81 MG TABEC PO (08:42)
[2023-11-17] MEDS: Normal Saline Flush 10 ML SYR IVP (08:42)
[2023-11-17] MEDS: Patch Removal 1 EACH TP (08:45)
[2023-11-17 09:55] LABS: HCT 44.1 % (40.0-50.0); HGB 14.1 g/dL (13.5-17.5); MCH 31.5 pg (27.0-33.0); MCV 98 fL (80-95); MPV 11.2 fL (8.0-11.0); Platelet Count 186 10^3/uL (130-400); RBC 4.48 10^6/uL (4.36-5.78); RDW 14.9 % (11.8-14.1); RDW-SD 54.6 fL; WBC 10.98 10^3/uL (4.4-10.8)
--- NOTE | 2023-11-17 12:11 | NUR.NOTE ---
Nursing Note: Report called into [facility] and rehab to ALEXIS Toscano at this time.
--- NOTE | 2023-11-17 13:24 | CMDISCH_ITS ---
Date of service: 11/17/23 Time of Service: 13:36 LACE Index Scoring Tool Questions: Length of Stay (in days): 4 - 6 Was the patient admitted via the E.D.?: Yes Comorbidities: Diabetes w/o Complication, Congestive Heart Failure, Chronic Pulmonary Disease and Liver or Renal Disease E.D. Visits: 1 Answers: Total Score: 13 Risk of Readmission: High Risk Care Management Discharge Plan Reason for Hospitalization: CHF Discharge Plan: Leroy transferred to [facility] today for short term rehab prior to returning home. He was transported via [facility] w[facility] van, [facility] He will follow up with his PCP and discharge plan of care. Patient/Family Education Needs: Review discharge instructions and limitations, discussion of self care needs including ask me three. Services Needed at Discharge: Custodial Facility ([facility]) and Transportation ([facility] w[facility] van) SDOH Health Related Social Needs: Health related social needs risk of homeless Health related social needs: housing instability, housed, with risk of homelessness(Z59.811)
--- NOTE | 2023-11-17 14:14 | NUR.NOTE ---
Nursing Note: DC via van to [facility] and rehab, pt has all personal belongings and has no further questions
== END 2023-11-17 13:32 | disposition skilled nursing facility (03) | DRG 291 ==
LOC: ER 13:37 → MS 15:06
PROVIDERS: Family Medicine; Internal Medicine; Admitting Provider Family Medicine; Emergency Provider Emergency Medicine; PCP Student in an Organized Health Care Education/Training Program; Visit Provider Family Medicine
DX: I50.23 Acute on chronic systolic (congestive) heart failure (principal); I13.0 Hypertensive heart and chronic kidney disease with heart failure and stage 1 through stage 4 chronic kidney disease, or unspecified chronic kidney disease; N18.4 Chronic kidney disease, stage 4 (severe); N25.81 Secondary hyperparathyroidism of renal origin; Z68.41 Body mass index [BMI] 40.0-44.9, adult; I25.5 Ischemic cardiomyopathy; I25.10 Atherosclerotic heart disease of native coronary artery without angina pectoris; E11.3593 Type 2 diabetes mellitus with proliferative diabetic retinopathy without macular edema, bilateral; E11.22 Type 2 diabetes mellitus with diabetic chronic kidney disease; Z79.4 Long term (current) use of insulin; E83.39 Other disorders of phosphorus metabolism; E11.42 Type 2 diabetes mellitus with diabetic polyneuropathy; Z95.5 Presence of coronary angioplasty implant and graft; Z95.818 Presence of other cardiac implants and grafts; Z89.612 Acquired absence of left leg above knee; Z89.611 Acquired absence of right leg above knee; K21.9 Gastro-esophageal reflux disease without esophagitis; J44.9 Chronic obstructive pulmonary disease, unspecified; I27.20 Pulmonary hypertension, unspecified; F43.12 Post-traumatic stress disorder, chronic; J32.9 Chronic sinusitis, unspecified; Z98.84 Bariatric surgery status; E66.01 Morbid (severe) obesity due to excess calories
CPT/HCPCS: 00123; 36415; 51702; 80048; 80053; 85027; 87637; 93005; 94640; 96365; 96366; 96372; 96374; 96376; 97110; 97163; 97165; 97530; 97535; 99285; 71046; 83735; 83880; 83970; 84100; 84484; 85025; 85610; 85730; 93010; 94664; 99222; 99231; 99232; 99233; 99238; J1205; J1644; J1815; J1940; J3490

== ENCOUNTER 2023-12-13 15:18 | Outpatient (REF) | payer BC, SELFPAY ==
[2023-12-13 19:38] LABS: Calcium 9.2 mg/dL (8.5-10.1); Chloride 94 mmol/L (98-107); Estimated GFR 13.05 (mL/min/1.73m2); Glucose 326 mg/dL (74-106); Potassium 3.8 mmol/L (3.5-5.1); Sodium 132 mmol/L (136-145)
[2023-12-13 20:24] LABS: BUN 142 mg/dL (7-18)
== END 2023-12-13 15:19 | disposition home or self-care (01) ==
LOC: LBN 15:18
PROVIDERS: PCP Student in an Organized Health Care Education/Training Program; Referring Provider Emergency Medicine; Visit Provider Emergency Medicine
DX: I50.22 Chronic systolic (congestive) heart failure (principal); R60.0 Localized edema
CPT/HCPCS: 80048

== ENCOUNTER → 2023-12-22 09:33 | Outpatient (BNVA) | payer MEDICARE, SELFPAY | PROVIDERS: PCP Student in an Organized Health Care Education/Training Program; Visit Provider Internal Medicine Cardiovascular Disease | DX: N18.4 Chronic kidney disease, stage 4 (severe) (principal); I25.10 Atherosclerotic heart disease of native coronary artery without angina pectoris; I50.22 Chronic systolic (congestive) heart failure | CPT/HCPCS: 99213 ==

== ENCOUNTER 2023-12-29 01:11 | Outpatient (CLI) | payer MEDICARE, SELFPAY ==
[2023-12-29 12:34] LABS: ALT 20 U/L (16-63); AST 17 U/L (15-37); Alkaline Phosphatase 133 U/L (46-116); Anion Gap 10.3 mmol/L (3-11); Bilirubin, Total 0.7 mg/dL (0.2-1.0); CO2 36.7 mmol/L (21.0-32.0); Calcium 9.8 mg/dL (8.5-10.1); Calculated LDL 56 mg/dL (<100); Chloride 85 mmol/L (98-107); Cholesterol 118 mg/dL (<200); Estimated GFR 13.05 (mL/min/1.73m2); Glucose 192 mg/dL (74-106); HDL Cholesterol 50 mg/dL (40-60); Magnesium 3.2 mg/dL (1.8-2.4); Potassium 3.6 mmol/L (3.5-5.1); Sodium 132 mmol/L (136-145); Total Protein 7.9 g/dL (6.4-8.2); Triglyceride 62 mg/dL (<150)
[2023-12-29 12:40] LABS: BUN 164 mg/dL (7-18)
[2023-12-29 19:20] LABS: PHOSPHORUS 7.6 mg/dL (2.6-4.7)
[2023-12-29 22:53] LABS: Parathyroid Hormone,Intact 283 pg/mL (19-88)
== END 2023-12-29 01:12 | disposition home or self-care (01) ==
LOC: LBO 01:12
PROVIDERS: PCP Student in an Organized Health Care Education/Training Program; Visit Provider Student in an Organized Health Care Education/Training Program
DX: Z13.220 Encounter for screening for lipoid disorders (principal); N18.9 Chronic kidney disease, unspecified; Z91.89 Other specified personal risk factors, not elsewhere classified
CPT/HCPCS: 36415; 80053; 80061; 83735; 83970; 84100

== ENCOUNTER 2024-02-03 01:05 | Outpatient (CLI) | payer MEDICARE, SELFPAY ==
[2024-02-03 13:25] LABS: HCT 43.4 % (40.0-50.0); HGB 14.6 g/dL (13.5-17.5); MCH 32.5 pg (27.0-33.0); MCHC 33.6 % (32.0-36.0); MCV 97 fL (80-95); MPV 10.6 fL (8.0-11.0); Platelet Count 172 10^3/uL (130-400); RBC 4.49 10^6/uL (4.36-5.78); RDW 13.9 % (11.8-14.1); RDW-SD 49.4 fL; WBC 13.23 10^3/uL (4.4-10.8)
[2024-02-03 13:56] LABS: Anion Gap 15.4 mmol/L (3-11); CO2 26.6 mmol/L (21.0-32.0); Chloride 97 mmol/L (98-107); Estimated GFR 14.33 (mL/min/1.73m2); Glucose 164 mg/dL (74-106); Potassium 3.5 mmol/L (3.5-5.1); Sodium 139 mmol/L (136-145)
[2024-02-03 14:01] LABS: BUN 132 mg/dL (7-18); CREATININE 4.6 mg/dL (0.70-1.30)
== END 2024-02-03 01:06 | disposition home or self-care (01) ==
PROVIDERS: PCP Student in an Organized Health Care Education/Training Program; Visit Provider Internal Medicine
DX: I10 Essential (primary) hypertension (principal); D50.9 Iron deficiency anemia, unspecified
CPT/HCPCS: 36415; 80048; 85027

== ENCOUNTER 2024-04-24 03:12 | Outpatient (CLI) | payer MEDICARE, SELFPAY ==
[2024-04-24 17:03] LABS: Anion Gap 12.1 mmol/L (3-11); CO2 28.9 mmol/L (21.0-32.0); Calcium 9.1 mg/dL (8.5-10.1); Chloride 92 mmol/L (98-107); Estimated GFR 14.71 (mL/min/1.73m2); Glucose 212 mg/dL (74-106); Magnesium 2.3 mg/dL (1.8-2.4); PHOSPHORUS 6.9 mg/dL (2.6-4.7); Potassium 3.5 mmol/L (3.5-5.1); Sodium 133 mmol/L (136-145)
[2024-04-24 17:11] LABS: BUN 97 mg/dL (7-18); CREATININE 4.5 mg/dL (0.70-1.30)
== END 2024-04-24 03:13 | disposition home or self-care (01) ==
LOC: LBO 03:12
PROVIDERS: PCP Student in an Organized Health Care Education/Training Program; Referring Provider Student in an Organized Health Care Education/Training Program; Visit Provider Student in an Organized Health Care Education/Training Program
DX: I10 Essential (primary) hypertension (principal); N18.9 Chronic kidney disease, unspecified; Z91.89 Other specified personal risk factors, not elsewhere classified
CPT/HCPCS: 36415; 80048; 83735; 84100

== ENCOUNTER 2024-05-03 08:29 | Inpatient (IN) | payer MEDICARE, MEDICAID, SELFPAY ==
[2024-05-03] VITALS (26 sets, daily range): BP systolic 112–164; BP diastolic 76–108; PULSE 84–99; RESP 9–25; TEMP 35.6–36.6; O2SAT 88–98
--- NOTE | 2024-05-03 08:30 | RT.EKG_ITS ---
APPROVED REPORT Exam: Resting ECG Reason for Exam: Weakness Patient Location: E HR:95 bpm ECG Measurements Heart Rate 95 AXIS IL 180 P 139 QRSd 132 QRS 107 QT 382 T -81 QTc 481 Conclusion Sinus or ectopic atrial rhythm...P axis (-45,135) IVCD, consider RBBB...QRSd>120mS, terminal axis(90,270) Nonspecific T abnormalities, lateral leads...T <-0.10mV, I aVL V5 V6 Sinus rhythm low voltage. IL and QTc within normal limits. No acute injury pattern. Appears simila r to prior dated earlier this year.
--- NOTE | 2024-05-03 08:33 | ED.GENADUL_ITS ---
Discharge Plan Disposition Patient Disposition: Admit to [facility] Discharge Details Clinical Impression: Acute hypokalemia, Acute systolic (congestive) heart failure, Proteinuria, Glucosuria Primary Care Provider: Candice Perez ED Provider: Koby Adame Home Meds and New Rx's Prescriptions: No Action (DME) Left Outer Sleeve See Rx Instructions .Route .MEDSUPPLY Qty: 1 0RF Rx Instructions: As directed (DME) Right prosthetic socket See Rx Instructions .Route .MEDSUPPLY Qty: 1 0RF Rx Instructions: As directed (DME) glucometer WITH MATCHING TEST STRIPS See Rx Instructions .Route .MEDSUPPLY Qty: 1 0RF Rx Instructions: Using TID until CGM available, then as back-up (DME) lancets Misc See Rx Instructions .ROUTE .MEDSUPPLY Qty: 300 3RF Rx Instructions: To check blood glucose three times daily. On insulin. Dispense covered brand. (DME) Sleeve, Left BKA See Rx Instructions .Route .MEDSUPPLY Qty: 1 0RF Rx Instructions: Per measure & fit by [employer] (DME) Sleeve, Right BKA See Rx Instructions .Route .MEDSUPPLY Qty: 1 0RF Rx Instructions: Per measure & fit by [employer] (DME) Dexcom G7 Healthcare Advisory Services Manager Misc See Rx Instructions .Route Qty: 1 3RF Rx Instructions: As directed to manage DM, E11.8 - 36 Sensors/year. A1C < 7.5 (DME) BKA Prosthetics, B/L See Rx Instructions .Route .MEDSUPPLY Qty: 2 1RF Rx Instructions: Measurement/fitting TBD by [employer] unless out-sourced (DME) Amputation Compression Sleeve See Rx Instructions .Route .MEDSUPPLY Qty: 1 0RF Rx Instructions: Please provide and fit a compression sleeve to the left BKA stump for appropriate prosthesis wear. (DME) fore arm cuff crutches See Rx Instructions .Route .MEDSUPPLY Qty: 1 0RF Rx Instructions: dispense 1 pair acetaminophen 325 mg tablet 650 mg PO Q4H PRN (Reason: fever or pain) Qty: 180 1RF azelastine 137 mcg (0.1 %) aerosol,spray See Rx Instructions intranasal BID Qty: 30 1RF Rx Instructions: 1-2 sprays intranasal twice a day; administer into each nostril (DME) FreeStyle Luis 2 [place] Misc See Rx Instructions .ROUTE .MEDSUPPLY Qty: 1 0RF Rx Instructions: As directed (DME) FreeStyle Luis 2 Sensor Kit See Rx Instructions .ROUTE .MEDSUPPLY Qty: 6 3RF Rx Instructions: As directed clobetasol 0.05 % spray,non-aerosol 1 applic topical BID 7 Days Qty: 59 1RF Rx Instructions: not to exceed 26 sprays per single application fluticasone propionate [Allergy Relief (fluticasone)] 50 mcg/actuation spray,suspension 1 spray intranasal DAILY Qty: 16 1RF Rx Instructions: administer into each nostril (DME) Contour Test Strips Strip See Rx Instructions .Route Qty: 100 2RF Rx Instructions: DX E11.9 Check BS TID use as back up if CGM fails. pantoprazole 40 mg tablet,delayed release (DR/EC) 40 mg PO DAILY Qty: 90 3RF Farxiga 5 mg tablet See Rx Instructions .ROUTE .COMPLEX Qty: 28 10RF Dose Instruction: TAKE 1 TABLET BY MOUTH DAILY FOR TYPE 2 DIABETES MELLITUS NOT AT GOAL, STAGE 3 CKD Rx Instructions: TAKE 1 TABLET BY MOUTH DAILY FOR TYPE 2 DIABETES MELLITUS NOT AT GOAL, STAGE 3 CKD ascorbic acid (vitamin C) 1,000 mg tablet 500 mg PO DAILY Qty: 90 3RF Rx Instructions: Doses exceeding 500mg daily will invalidate CGM sensor. 02/04/22 EO Spiriva Respimat 2.5 mcg/actuation mist See Rx Instructions .ROUTE .COMPLEX Qty: 4 3RF Dose Instruction: INHALE 2 PUFFS BY MOUTH DAILY Rx Instructions: INHALE 2 PUFFS BY MOUTH DAILY (DME) pen needle, diabetic [BD Ultra-Fine Mini Pen Needle] 31 gauge x 3/16 needle See Rx Instructions .Route Qty: 300 3RF Rx Instructions: As directed for injecting Lantus/humalog to maintain A1C < 7, DM E11.8 clopidogrel 75 mg tablet 75 mg PO DAILY Qty: 30 5RF Rx Instructions: take separately from reflux medication. sodium bicarbonate 650 mg tablet 650 mg PO BID cholecalciferol (vitamin D3) 25 mcg (1,000 unit) capsule 25 mcg PO DAILY Qty: 90 3RF cyanocobalamin (vitamin B-12) 1,000 mcg capsule 1,000 mcg PO DAILY Qty: 90 3RF atorvastatin 10 mg tablet 10 mg PO DAILY Qty: 90 3RF cetirizine 10 mg tablet 10 mg PO DAILY Qty: 90 3RF aspirin 81 mg tablet,delayed release (DR/EC) 81 mg PO DAILY Qty: 90 3RF carvedilol 12.5 mg tablet 12.5 mg PO BID Qty: 180 3RF Rx Instructions: must administer with a meal/food (DME) Dexcom G7 Sensor Device See Rx Instructions .Route Qty: 3 11RF Rx Instructions: For A1C < 7.5, DM E11.8 (36 per year) insulin glargine 100 unit/mL (3 mL) insulin pen 36 unit subcut QPM Qty: 15 3RF Rx Instructions: 01/27/24-pt reports this is what he's taking-LH insulin lispro [Humalog KwikPen Insulin] 100 unit/mL insulin pen 1 sliding scale dose subcut USEASDIRECTD MDD 50 units Qty: 15 3RF Rx Instructions: [facility] Endo - current correction of 1u:30mg/dl, starting at 130mg/dl per pt. 01/06/21 spironolactone 25 mg tablet 25 mg PO DAILY Qty: 90 3RF torsemide 20 mg tablet See Rx Instructions PO DAILY PRN (Reason: Abdominal Edema) Qty: 180 1RF Rx Instructions: Add 40mg daily 2' abd edema (est 3 days, may need to extend)(call PCP q 3 days)(labs weekly) orally daily PRN; Dupixent Syringe 300 mg/2 mL syringe 300 mg SUBCUT Q2W indapamide 2.5 mg tablet 5 mg PO DAILY torsemide 100 mg tablet 100 mg PO DAILY HPI General Date/Time Provider Initiated Documentation: 05/03/24 08:31 . HPI Narrative: MDM This is a volume overloaded normothermic and not tachycardic 54-year-old male with acute on chronic systolic heart failure for which she will receive IV diuretics following assessment of his electrolytes. He is still urinating so even if he is in CHANEL do not feel that he will progress to require dialysis. No pain out of proportion to suggest necrotizing soft tissue infection. I considered sepsis however the patient denies fevers and cough so I did not obtain blood cultures nor treat empirically with IV antibiotics nor obtain a lactate. No trauma to chest to suggest pneumothorax. Patient has been weak but did not hit his head or lose consciousness I did not feel he required CT head. No black nor bloody stools no anticoagulation to suggest increased risk for acute blood loss anemia. No chest pain to suggest ACS however given volume overloaded status with poor squeeze on bedside echo will obtain a troponin to risk stratify heart failure. He does not currently appear to be on metolazone however once labs are back we will calculate an emergency heart failure mortality risk grade prior to initiating diuretics. I considered PE however given bilateral B-lines no chest pain and no tachycardia my suspicion was low for PE as I did not send a D-dimer. Patient has an 18-gauge IV. 9:26 AM CBC lacks leukocytosis but does have mild microcytic anemia. No thrombocytopenia. 9:45 AM Initial troponin elevated similar to prior levels likely secondary to type II NSTEMI in the setting of supply demand mismatch as opposed to type I NSTEMI. Will defer heparinization. Comprehensive metabolic panel showing CKD no superimposed CHANEL. Elevated BUN. Hyperglycemia normal anion gap?/not consistent with DKA. Mild hypokalemia for which patient will receive oral repletion. Will initiate diuretics with 80 mg IV furosemide. Normal reassuring magnesium. His pH MR Q score is 90 points making him 8.2% risk of mortality in the next 7 days. Will reach out to hospitalist with request for hospitalization. 10:28 AM Slightly improved troponin at 241 ng/L. Markedly elevated proBNP. Hospital currently at [facility]. Completing a bed hospital to determine best disposition. Patient updated. 10:51 AM Urinalysis showing proteinuria with glucosuria urea. Nitrite negative??not consistent with UTI. 11:43 AM I was in touch with Dr. Cuello who graciously agreed to accept the patient for hospitalization. I updated the patient on this plan. 3:45 PM Patient was boarding in the ED throughout my shift due to bed availability upstairs. Patient fell asleep and desaturated. Given his elevated BMI I suspect that he has a component of respiratory failure. He was placed on several liters nasal cannula. He has put out approximately 900 cc of urine since he received his furosemide. Chronic conditions affecting the care of the patient: Systolic heart failure History obtained from an outside historian: Paramedics External record review: [facility] EMR Diagnostic interpretations performed by me: Per my independent interpretation chest x-ray shows: Per my independent interpretation EKG shows: Sinus rhythm low voltage. NM and QTc within normal limits. No acute injury pattern. Appears similar to prior dated earlier this year. ]Medications: Furosemide potassium Social determinants of health affecting disposition: N/A Management discussed with: Hospitalist Treatment/interventions considered: N/A Response to therapies provided: N/A HPI This is a 54-year-old insulin-dependent diabetic with systolic heart failure AICD and COPD arrived to the emergency department via EMS in the setting of increased weakness shortness of breath with exertion and lower extremity edema. Patient reports that he saw his PCP earlier this month and was on escalating doses of furosemide. He cannot quantify his history of recent weight gain but he does feel more bloated. He went to urinate this morning and could not get off of the toilet as he is too weak. He feels short of breath. He did not hit his head. He did not lose consciousness. He denies fevers and cough. He is not having any chest pain. No history of malignancy. Exam General: Well-appearing in no acute distress speaking in complete sentences. Head: Normocephalic, atraumatic. Eye: Extraocular eye movements intact. No conjunctival injection. No scleral icterus. Ear, nose, mouth, throat: Grossly normal inspection. Normal voice, handling secretions normally. Neck: Trachea midline. Cardiovascular: Well-perfused distal extremities. Distant heart sounds regular rate Respiratory: Nonlabored respiration. Bibasilar crackles. Gastrointestinal: Moderately distended abdomen. Soft nontender. Musculoskeletal: Mild bilateral lower extremity pitting edema in thighs. Bilateral BKA's. Skin: Normal for age and race, grossly normal temperature and turgor. No acute rash. Neurologic: Alert and appropriate, no apparent acute deficits. GCS 15. Psychiatric: Mood and manner are appropriate. Grooming and personal hygiene are appropriate. Related Data Home Medications ?Medication ?Instructions ?Recorded ?Confirmed Amputation Compression Sleeve #1 ea 01/26/21 05/03/24 fore arm cuff crutches #1 ea 06/07/21 05/03/24 Left Outer Sleeve #1 ea 12/07/21 05/03/24 acetaminophen 325 mg tablet 650 mg (2 x 325 mg) PO Q4H PRN 04/02/22 05/03/24 fever or pain #180 tabs azelastine 137 mcg (0.1 %) nasal See Rx Instructions intranasal BID 04/02/22 05/03/24 spray #30 mL flash glucose scanning reader #1 ea 04/02/22 05/03/24 (FreeStyle Luis 2 [place]) flash glucose sensor (FreeStyle #6 ea 04/02/22 05/03/24 Luis 2 Sensor kit) Right prosthetic socket #1 ea 05/13/22 05/03/24 clobetasol 0.05 % topical spray 1 applic topical BID 1 week #59 mL 08/19/22 05/03/24 fluticasone propionate 50 1 spray intranasal DAILY #16 grams 12/02/22 05/03/24 mcg/actuation nasal spray,suspension (Allergy Relief (fluticasone)) blood-glucose meter,continuous #1 ea 01/25/23 05/03/24 (MeeDoc G7 Healthcare Advisory Services Manager) glucometer WITH MATCHING TEST #1 ea 03/10/23 05/03/24 STRIPS lancets #300 ea 03/10/23 05/03/24 blood sugar diagnostic (Contour #100 ea 03/18/23 05/03/24 Test Strips) pantoprazole 40 mg tablet,delayed 40 mg PO DAILY #90 tabs 05/22/23 05/03/24 release ascorbic acid (vitamin C) 1,000 mg 500 mg (1/2 x 1,000 mg) PO DAILY 08/09/23 05/03/24 tablet #90 tabs dapagliflozin propanediol 5 mg See Rx Instructions .Route 08/09/23 05/03/24 tablet (Farxiga) .COMPLEX #28 tabs tiotropium bromide 2.5 See Rx Instructions .Route 10/10/23 05/03/24 mcg/actuation mist for inhalation .COMPLEX #4 grams (Spiriva Respimat) Sleeve, Left BKA #1 ea 10/15/23 05/03/24 Sleeve, Right BKA #1 ea 10/15/23 05/03/24 pen needle, diabetic 31 gauge x #300 ea 10/20/23 05/03/24 3/16 (BD Ultra-Fine Mini Pen Needle) dupilumab 300 mg/2 mL subcutaneous 300 mg subcut Q2W 10/29/23 05/03/24 syringe (Dupixent) BKA Prosthetics, B/L #2 ea 01/21/24 05/03/24 clopidogrel 75 mg tablet 75 mg PO DAILY #30 tabs 01/26/24 05/03/24 sodium bicarbonate 650 mg tablet 650 mg PO BID 01/27/24 05/03/24 aspirin 81 mg tablet,delayed 81 mg PO DAILY #90 tabs 02/21/24 05/03/24 release atorvastatin 10 mg tablet 10 mg PO DAILY #90 tabs 02/21/24 05/03/24 carvedilol 12.5 mg tablet 12.5 mg PO BID #180 tabs 02/21/24 05/03/24 cetirizine 10 mg tablet 10 mg PO DAILY #90 tabs 02/21/24 05/03/24 cholecalciferol (vitamin D3) 25 25 mcg PO DAILY #90 caps 02/21/24 05/03/24 mcg (1,000 unit) capsule cyanocobalamin (vitamin B-12) 1,000 mcg PO DAILY #90 caps 02/21/24 05/03/24 1,000 mcg capsule blood-glucose sensor (MeeDoc G7 #3 ea 02/25/24 05/03/24 Sensor device) insulin glargine 100 unit/mL (3 36 unit (0.36 mL) subcut QPM #15 mL 03/10/24 05/03/24 mL) subcutaneous pen insulin lispro 100 unit/mL 1 sliding scale dose subcut 03/10/24 05/03/24 subcutaneous pen (Humalog KwikPen USEASDIRECTD DM, E11.8 .. to jeep (U-100) Insulin) A1C < 7.5 #15 mL spironolactone 25 mg tablet 25 mg PO DAILY #90 tabs 03/30/24 05/03/24 torsemide 20 mg tablet See Rx Instructions PO DAILY PRN 04/24/24 05/03/24 Abdominal Edema #180 tabs indapamide 2.5 mg tablet 5 mg PO DAILY 05/03/24 05/03/24 torsemide 100 mg tablet 100 mg PO DAILY 05/03/24 05/03/24 Previous Rx's ?Medication ?Instructions ?Recorded Amputation Compression Sleeve #1 ea 01/26/21 fore arm cuff crutches #1 ea 06/07/21 Left Outer Sleeve #1 ea 12/07/21 acetaminophen 325 mg tablet 650 mg (2 x 325 mg) PO Q4H PRN 04/02/22 fever or pain #180 tabs azelastine 137 mcg (0.1 %) nasal See Rx Instructions intranasal BID 04/02/22 spray #30 mL flash glucose scanning reader #1 ea 04/02/22 (FreeStyle Luis 2 [place]) flash glucose sensor (FreeStyle #6 ea 04/02/22 Luis 2 Sensor kit) Right prosthetic socket #1 ea 05/13/22 clobetasol 0.05 % topical spray 1 applic topical BID 1 week #59 mL 08/19/22 fluticasone propionate 50 1 spray intranasal DAILY #16 grams 12/02/22 mcg/actuation nasal spray,suspension (Allergy Relief (fluticasone)) blood-glucose meter,continuous #1 ea 01/25/23 (MeeDoc G7 Healthcare Advisory Services Manager) glucometer WITH MATCHING TEST #1 ea 03/10/23 STRIPS lancets #300 ea 03/10/23 blood sugar diagnostic (Contour #100 ea 03/18/23 Test Strips) pantoprazole 40 mg tablet,delayed 40 mg PO DAILY #90 tabs 05/22/23 release ascorbic acid (vitamin C) 1,000 mg 500 mg (1/2 x 1,000 mg) PO DAILY 08/09/23 tablet #90 tabs dapagliflozin propanediol 5 mg See Rx Instructions .Route 08/09/23 tablet (Farxiga) .COMPLEX #28 tabs tiotropium bromide 2.5 See Rx Instructions .Route 10/10/23 mcg/actuation mist for inhalation .COMPLEX #4 grams (Spiriva Respimat) Sleeve, Left BKA #1 ea 10/15/23 Sleeve, Right BKA #1 ea 10/15/23 pen needle, diabetic 31 gauge x #300 ea 10/20/23/16 (BD Ultra-Fine Mini Pen Needle) BKA Prosthetics, B/L #2 ea 01/21/24 clopidogrel 75 mg tablet 75 mg PO DAILY #30 tabs 01/26/24 aspirin 81 mg tablet,delayed 81 mg PO DAILY #90 tabs 02/21/24 release atorvastatin 10 mg tablet 10 mg PO DAILY #90 tabs 02/21/24 carvedilol 12.5 mg tablet 12.5 mg PO BID #180 tabs 02/21/24 cetirizine 10 mg tablet 10 mg PO DAILY #90 tabs 02/21/24 cholecalciferol (vitamin D3) 25 25 mcg PO DAILY #90 caps 02/21/24 mcg (1,000 unit) capsule cyanocobalamin (vitamin B-12) 1,000 mcg PO DAILY #90 caps 02/21/24 1,000 mcg capsule blood-glucose sensor (Dexcom G7 #3 ea 02/25/24 Sensor device) insulin glargine 100 unit/mL (3 36 unit (0.36 mL) subcut QPM #15 mL 03/10/24 mL) subcutaneous pen insulin lispro 100 unit/mL 1 sliding scale dose subcut 03/10/24 subcutaneous pen (Humalog KwikPen USEASDIRECTD DM, E11.8 .. to jeep (U-100) Insulin) A1C < 7.5 #15 mL spironolactone 25 mg tablet 25 mg PO DAILY #90 tabs 03/30/24 torsemide 20 mg tablet See Rx Instructions PO DAILY PRN 04/24/24 Abdominal Edema #180 tabs Allergies Allergy/AdvReac Type Severity Reaction Status Date / Time tramadol AdvReac Severe renal Verified 04/19/24 08:43 failure insulin aspart AdvReac Mild HypOglycemi Verified 04/19/24 08:43 a Poor Renal Function AdvReac Unknown renal Uncoded 04/19/24 08:43 failure General RAMON: 3 Medical Decision Making Quality:SDOH Health Related Social Needs: Health related social needs housing instability, house d, with risk of homelessness(Z59.811) PFSH All Active Problems (Updated 05/03/24 @ 15:33 by Koby Cuello) Anemia in CKD (chronic kidney disease) (Acute) Glucosuria (Acute) Proteinuria (Acute) Acute systolic (congestive) heart failure (Acute) Acute hypokalemia (Acute) Edema of abdominal wall (Acute) Edema of right lower extremity (Chronic) Fluctuating 2' CHF, fluid overload/diuresis Edema of left lower extremity (Chronic) Fluctuating 2' CHF, fluid overload/diuresis At risk for fluid and electrolyte imbalance (Acute) Long Hx 2' med changes, fluid overload. At risk for medication error (Acute) 2' ED, Hosp, Specialists, H&R, HH .. 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 4-wheel, for hill, grass & dog.. getting to basement shop and garage and acreage.. HCM and QOL .. and working for [employer]. CKD (chronic kidney disease) stage 4, GFR 15-29 ml/min (Acute) GFR @ 19-20 with elevated A1C, but @ risk of hypoglycemia.. CHANEL (acute kidney injury) (Acute) Improved with diuresis and hydration @ home, but high risk for repeat episodes Hypertension associated with diabetes (Acute) Persistent proteinuria associated with type 2 diabetes mellitus (Acute) Hyperglycemia due to diabetes mellitus (Acute) Diabetes mellitus with complication in adult patient (Chronic) Type 2 diabetes mellitus with diabetic polyneuropathy (Acute) Iron deficiency (Acute) History of anemia (Chronic) Coronary artery disease (Chronic) w/ dilated cardiomyopathy and (+) stress test ++> PCI/Stenting, 12/29/21 Ischemic cardiomyopathy (Chronic) w/ (+) stress test and PCI/Stenting, 12/29/21 ICD (implantable cardioverter-defibrillator) in place (Acute) ICD, single lead, Medtronic Visia 04/27/2018 [place], [place] Elevated brain natriuretic peptide (BNP) level (Acute) thought to be near baseline, but unclear Hx Low serum albumin (Chronic) Protein WNL per 02/2022 labs Chronic systolic CHF (congestive heart failure) (Acute) EF 20-25% per Jul 2023 Echo ([facility]) Pulmonary hypertension (Acute) 12/29/21. [id number]. Noted during Cardiac cath, [facility]. NYHA Class IV Dermatitis, unspecified (Acute ~11/2021) 12/07/21 Dermatology Chronic posttraumatic stress disorder (Acute) History of posttraumatic stress disorder (PTSD) (Acute) Long Hx, Restarted with counselor, Madison Harris. 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 Working with [employer] re: prosthetics.. Rt, November 2020. Lft, 2018 (?) GERD (gastroesophageal reflux disease) (Chronic) PPI COPD (chronic obstructive pulmonary disease) (Chronic) Hx smoker (~10pkyr), PFTs (04/17/21). Disability examination (Acute) PFTs, 04/2021 for Disability 2' COPD. Housing or economic problem (Acute) Nasal polyp (Acute) Pt report based on past ENT 06/02/[address] Haque - surgical correction planned Allergic rhinitis due to allergen (Acute) Nasal turbinate hypertrophy (Acute) Other chronic sinusitis (Acute) Deviated nasal septum (Acute) Seasonal allergies (Acute) Corneal opacification (Acute) OS Proliferative retinopathy of both eyes (Acute) Full PRP OD Vitamin D deficiency (Acute) Secondary hyperparathyroidism (Acute) Medical History SARS-CoV-2 positive (~04/14/22) Dehydration Hypercalcemia (~02/21/22) Elevated troponin Positive cardiac stress test 2021 .. Cath, with stent placement + 12/29/21. Edema of abdomen Neck pain acute .. due to sleeping on sofa?? coughing? Decreased range of motion (ROM) of right knee Flexion ok; Extension is difficult .. Continues to work with PT Psoriasis Carpal tunnel syndrome of left wrist Cubital bursitis of right elbow Diabetic foot ulcer associated with type 2 diabetes mellitus RESOLVED with amputation. 09/30/20-R heel w/cellulitis-Dr Kevin,DPM 10/16/20 Debridement by Podiatry 10/30/20 [facility] Vascular - RIGHT Heel Ulcer - cont close wound care by Podiatry Hx: recurrent pneumonia walking pneumonia most vines x 3 years Cervical neuropathy Tendonitis of long head of biceps brachii of right shoulder Bursitis of right shoulder Right shoulder pain Acute on chronic issue: now with elbow and hand pain (ulnar), with tingling. Finger pain, left Could this be gout? No injury. Trial Naproxen. Nasal polyps Erectile dysfunction Testicular cancer CKD stage 3 secondary to diabetes CKD, October 2022! 08/2019 Cr 1.74 ... Elevated in 2020 2' Inf/ABx/HyperGly .. [ ] re-check 03/2021! Surgical History S/P cardiac catheterization 12/29/21 [facility] (Dr. Jerry Ramírez). PCI (via R radial artery) of mid-LAD. Balloon angioplasty and lithotripsy. 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 History of amputation of left lower extremity History of amputation of great toe Right History of cardiac defibrillator placement History of cataract removal with insertion of prosthetic lens (~03/02/18) Right History of gastric bypass (~07/01/14) History of cystoscopy (~12/25/13) History of tonsillectomy (~1979) History of orchiectomy, unilateral (~06/1999) Right Family History Mother Diabetes Father Diabetes Heart disease Hypertension Sister Diabetes Brother Diabetes Brother Diabetes Heart disease Hypertension Social History (Updated 05/03/24 @ 15:23 by Koby Cuello) Smoking/Tobacco Use Status: Former Tobacco Use tobacco type: cigarettes Quit Date: 07/18/98 Tobacco: How many years used: 10 Smokeless tobacco user: chewing tobacco Quit status: considering quitting Smoking risk assessment performed?: Yes Alcohol Intake: current Alcohol Intake frequency: 0-2 drinks per day Alcohol type: hard liquor Drug use: Never Substance use type: does not use Adopted: No Caregiver/Support person: No Foster care: No Household members: significant other Housing: house Do you need help understanding health information?: Rarely current occupation: Unemployed Sexually active: Yes Do you think of yourself as: straight/heterosexual Current gender identity: male Do you feel safe at home: Yes (getting out of relationship) Do you feel safe in your relationship?: Yes Additional Social history: moving out POCUS Exam (ED) Limited Cardiac Exam DATE OF EXAM: 05/03/24 TIME OF EXAM: 09:11 PROVIDER THAT PERFORMED THE STUDY: Koby Adame IS THIS A REPEAT EXAM DURING THIS ENCOUNTER: no REASON FOR EXAM: Dyspnea VISUALIZED STRUCTURES: Left ventricle and LVOT VIEW OBTAINED: Apical 4-Chamber, Parasternal long-axis, Subxiphoid and Other (Lungs bilaterally) PERTINENT FINDINGS/IMPRESSION: No pericardial effusion and No RV dilation DIFFERENTIAL DIAGNOSES: Aortic outflow track less than 4 cm, poor squeeze, no significant pericardial effusion. Difficult obtaining apical four-chamber view. Bilateral B-lines. Exam complete
[2024-05-03 09:03] LABS: Abs Immature Grans 0.05 10^3/uL (0.0-0.06); Absolute Basophil Count 0.05 10^3/uL (0.0-0.2); Absolute Eosinophil Count 0.36 10^3/uL (0.0-0.7); Absolute Lymphocyte Count 0.74 10^3/uL (1.2-3.4); Absolute Monocyte Count 0.94 10^3/uL (0.1-0.8); Absolute Neutrophil Count 7.65 10^3/uL (1.2-6.7); Basophils % 0.5 %; Eosinophils % 3.7 %; HCT 38.7 % (40.0-50.0); HGB 12.8 g/dL (13.5-17.5); Immature Grans % 0.5 %; Lymphocytes % 7.6 %; MCHC 33.1 % (32.0-36.0); MCV 103 fL (80-95); Monocytes % 9.6 %; Neutrophils % 78.1 %; Platelet Count 191 10^3/uL (130-400); RBC 3.76 10^6/uL (4.36-5.78); RDW 14.6 % (11.8-14.1); RDW-SD 55.4 fL; WBC 9.79 10^3/uL (4.4-10.8)
--- NOTE | 2024-05-03 09:17 | DI.RAD_ITS ---
Exam(s) XR PORTABLE CHEST AP EXAM: XR PORTABLE CHEST AP CLINICAL HISTORY: SOB TECHNIQUE: 2D digital imaging was performed of the chest. One image was obtained. An AP view was ob tained. COMPARISON: CR XR CHEST 2V PA LATERAL from 08/22/2020 CR,XR XR PORTABLE CHEST AP from 12/14/2021 CR XR PORTABLE CHEST AP from 10/27/2023 CR XR CHEST 2V PA LATERAL from 11/09/2023 FINDINGS: MEDIASTINUM: Normal. HEART: Stable mildly enlarged heart. There is a cardiac pacing device in place. PULMONARY VASCULATURE: Normal. LUNGS: There are no focal consolidating infiltrates. PLEURAL SPACE: No pleural effusion or pneumothorax. BONE:Within normal limits for the patient's age. OTHER FINDINGS:Normal. IMPRESSION: No acute pulmonary findings. DATA REPOSITORY: RADIATION DOSE DELIVERED:
[2024-05-03 09:19] LABS: ALT 14 U/L (16-63); AST 11 U/L (15-37); Albumin 2.9 g/dL (3.4-5.0); Alkaline Phosphatase 101 U/L (46-116); Anion Gap 8.3 mmol/L (3-11); Bilirubin, Total 0.56 mg/dL (0.2-1.0); CO2 34.7 mmol/L (21.0-32.0); Calcium 8.8 mg/dL (8.5-10.1); Chloride 91 mmol/L (98-107); Estimated GFR 15.98 (mL/min/1.73m2); Glucose 167 mg/dL (74-106); Magnesium 2.4 mg/dL (1.8-2.4); Potassium 3.2 mmol/L (3.5-5.1); Sodium 134 mmol/L (136-145); Total Protein 6.8 g/dL (6.4-8.2)
[2024-05-03 09:25] LABS: BUN 101 mg/dL (7-18)
[2024-05-03 09:26] LABS: CREATININE 4.2 mg/dL (0.70-1.30); Troponin I 254 ng/L (<or=76)
[2024-05-03] MEDS: Furosemide 100 MG/10 ML VIAL 80 MG IVP (10:01)
[2024-05-03] MEDS: Potassium Bicarbonate/Cit AC 25 MEQ TABLET.EFF 50 MEQ PO (10:01)
[2024-05-03 10:17] LABS: Troponin I 241 ng/L (<or=76)
[2024-05-03 10:43] LABS: Bilirubin Negative (Negative); Blood Negative (Negative); Clarity Clear (Clear); Glucose 100 mg/dL (Negative); Ketones Negative (Negative); Leukocyte Esterase Negative (Negative); Nitrite Negative (Negative); Specific Gravity 1.015 (1.005-1.025); Urobilinogen 0.2 mg/dL (Up to 0.2)
[2024-05-03 11:00] LABS: Bacteria Negative HPF (Negative)
[2024-05-03 11:01] LABS: Casts Negative LPF (Negative); Mucus Negative (Negative); RBC Negative HPF (0-2)
[2024-05-03 11:03] LABS: Crystals Negative HPF (Negative); Epithelial Cells Negative HPF (Negative)
[2024-05-03 11:04] LABS: C & S Indicated? No; WBC Negative HPF (0-5)
[2024-05-03] MEDS: Insulin Aspart 300 UNITS/3 ML PEN SC ×2 (12:00→17:46)
[2024-05-03 12:10] LABS: Troponin I 241 ng/L (<or=76)
--- NOTE | 2024-05-03 14:26 | NUR.NOTE ---
Nursing Note: Pt presented a 12 beat run of possible VTach (confirmed by ED physician). Pt was asleep at the time (this display card writer woke him up). Denies CP/SOB. Vitals: BP 112/92 HR 85 (s/p event) SpO2 93%
[2024-05-03] MEDS: Enoxaparin 40 MG/0.4 ML SYR SC (14:36)
--- NOTE | 2024-05-03 15:07 | W.PM.HP.N ---
Date of service: 05/23/24 Time of Service: 12:00 Assessment and Plan Assessment and plan (1) Acute systolic (congestive) heart failure: Status: Acute Assessment and plan: Acute on chronic. BNaP elevated higher than typical, though CXR not impressive. He has clearly gained water weight and needs diuresis. Complicated by CKD 4. He failed outpatient diuresis with torsemide 40mg. He hasn't clearly responded to the 80mg IV furosemide here, so will start infusion He agrees to quigley to closely monitor urine output. He is on indipamide and spironolactone at home, will continue these with furosemide. If not diuresing we could hold the indipamide and try metolazone. Consult cardiology. POCUS c/w CHF and previous reduced EF, but we should update functional assessment with echocardiogram. (2) Chronic systolic CHF (congestive heart failure): Status: Acute Assessment and plan: Secondary to ischemic cardiomyopathy He is on beta-adithya, SGLT2i, spironolactone. Not on HALI/ARB/ARNI. (3) Hypertension associated with diabetes: Status: Acute Assessment and plan: continue outpatient medications, additional diureiss. (4) Diabetes mellitus with complication in adult patient: Status: Chronic Assessment and plan: Last A1c 8.4 in December, will repeat with AM labs. Continue outpatient basal/bolus insulin Also on SLGT2i, but this won't help glucose with his GFR. He could consider GLP-1, would likely benefit with his CAD, but defer to outpatient. (5) CKD (chronic kidney disease) stage 4, GFR 15-29 ml/min: Status: Acute Assessment and plan: GFR slightly above his recents, needs diuresis. Follow. (6) Anemia in CKD (chronic kidney disease): Status: Acute Assessment and plan: Likely related to CKD, but interestingly was not anemic recently, so will follow in case we are missing some blood loss. MCV high, get b12 (7) Elevated troponin: Assessment and plan: Elevated but not dynamic, due to CKD and chornic heart disease. Not c/w ACS (8) DVT prophylaxis: Status: Acute Assessment and plan: enoxaparin, pharmacy can adjust dose based on BMI and CKD if needed History of Present Illness History of Present Illness Chief Complaint: weakness, fluid retention Narrative: 54 yo M with longstanding IDDM, stage 4 CKD, and HFrEF with LVEF 25% with AICD, bilateral BKAs, who presented after he slumped down to the floor after trying to stand up from the toilet this morning. He had no head trauma or other significant trauma, he just felt too generally weak to get up. He never had chest pain, did not get dizzy or loose consciousness. He does say that he feels like he has been retaining more fluids for the past several weeks. He states this started the last week of March. He denies any change in diet or medication or activity prior to this, was not getting chest pain or other symptoms. His clothes were more tight and he feels his abdominal pannus more tense. He saw his PCP 04/19 who started torsemide 40mg daily prn. He has been taking this but this feeling has not improved. He doesn't follow his weights, but 10kg higher than 04/19 and 28kg above weight on 01/09. Review of Systems All systems reviewed & are unremarkable except as noted in HPI and below Constitutional Constitutional: Denies headache(s) ENT Ears, Nose, Mouth, and Throat: Denies headache(s) Cardiovascular Cardiovascular: Denies acrocyanosis, Denies chest pain, Denies chest pain with activity, Denies diaphoresis, Denies syncope, Denies radiating jaw, neck or arm pain, Denies palpitations, Denies orthopnea and Denies paroxysmal nocturnal dyspnea Respiratory Respiratory: Denies chest congestion, Denies cough, Denies excessive phlegm production and Denies wheezing Neurologic Neurologic: Denies abnormal speech, Denies confusion, Denies syncope, Denies headache(s) and Denies localized weakness Psychiatric Psychiatric: Denies confusion Endocrine Endocrine: Denies palpitations Allergic/Immunologic Allergic/Immunologic: Denies wheezing PFSH All Active Problems (Updated 05/03/24 @ 15:33 by Koby Cuello) Anemia in CKD (chronic kidney disease) (Acute) Glucosuria (Acute) Proteinuria (Acute) Acute systolic (congestive) heart failure (Acute) Acute hypokalemia (Acute) Edema of abdominal wall (Acute) Edema of right lower extremity (Chronic) Fluctuating 2' CHF, fluid overload/diuresis Edema of left lower extremity (Chronic) Fluctuating 2' CHF, fluid overload/diuresis At risk for fluid and electrolyte imbalance (Acute) Long Hx 2' med changes, fluid overload. At risk for medication error (Acute) 2' ED, Hosp, Specialists, H&R, HH .. 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 4-wheel, for hill, grass & dog.. getting to basement shop and garage and acreage.. HCM and QOL .. and working for [email or web address]. CKD (chronic kidney disease) stage 4, GFR 15-29 ml/min (Acute) GFR @ 19-20 with elevated A1C, but @ risk of hypoglycemia.. CHANEL (acute kidney injury) (Acute) Improved with diuresis and hydration @ home, but high risk for repeat episodes Iron deficiency (Acute) Low serum albumin (Chronic) Protein WNL per 02/2022 labs Pulmonary hypertension (Acute) 12/29/21. [id number]. Noted during Cardiac cath, [facility]. NYHA Class IV Ischemic cardiomyopathy (Chronic) w/ (+) stress test and PCI/Stenting, 12/29/21 Dermatitis, unspecified (Acute ~11/2021) 12/07/21 Dermatology Coronary artery disease (Chronic) w/ dilated cardiomyopathy and (+) stress test ++> PCI/Stenting, 12/29/21 Elevated brain natriuretic peptide (BNP) level (Acute) thought to be near baseline, but unclear Hx Hyperglycemia due to diabetes mellitus (Acute) Chronic posttraumatic stress disorder (Acute) History of anemia (Chronic) History of posttraumatic stress disorder (PTSD) (Acute) Long Hx, Restarted with counselor, Madison Harris. 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 Working with [employer] re: prosthetics.. Rt, November 2020. Lft, 2018 (?) COPD (chronic obstructive pulmonary disease) (Chronic) Hx smoker (~10pkyr), PFTs (04/17/21). Disability examination (Acute) PFTs, 04/2021 for Disability 2' COPD. GERD (gastroesophageal reflux disease) (Chronic) PPI Housing or economic problem (Acute) Diabetes mellitus with complication in adult patient (Chronic) Type 2 diabetes mellitus with diabetic polyneuropathy (Acute) Allergic rhinitis due to allergen (Acute) Nasal turbinate hypertrophy (Acute) Other chronic sinusitis (Acute) Deviated nasal septum (Acute) Seasonal allergies (Acute) Corneal opacification (Acute) OS Proliferative retinopathy of both eyes (Acute) Full PRP OD ICD (implantable cardioverter-defibrillator) in place (Acute) ICD, single lead, Med[employer] Visia 04/27/2018 [place], [place] Nasal polyp (Acute) Pt report based on past ENT 06/02/[address] Haque - surgical correction planned Vitamin D deficiency (Acute) Secondary hyperparathyroidism (Acute) Chronic systolic CHF (congestive heart failure) (Acute) EF 20-25% per Jul 2023 Echo ([facility]) Persistent proteinuria associated with type 2 diabetes mellitus (Acute) Hypertension associated with diabetes (Acute) Medical History SARS-CoV-2 positive (~04/14/22) Dehydration Hypercalcemia (~02/21/22) Elevated troponin Positive cardiac stress test 2021 .. Cath, with stent placement + 12/29/21. Edema of abdomen Neck pain acute .. due to sleeping on sofa?? coughing? Decreased range of motion (ROM) of right knee Flexion ok; Extension is difficult .. Continues to work with PT Psoriasis Carpal tunnel syndrome of left wrist Cubital bursitis of right elbow Diabetic foot ulcer associated with type 2 diabetes mellitus RESOLVED with amputation. 09/30/20-R heel w/cellulitis-Dr Kevin,DPM 10/16/20 Debridement by Podiatry 10/30/20 [facility] [place] Vascular - RIGHT Heel Ulcer - cont close wound care by Podiatry Hx: recurrent pneumonia walking pneumonia most vines x 3 years Cervical neuropathy Tendonitis of long head of biceps brachii of right shoulder Bursitis of right shoulder Right shoulder pain Acute on chronic issue: now with elbow and hand pain (ulnar), with tingling. Finger pain, left Could this be gout? No injury. Trial Naproxen. Nasal polyps Erectile dysfunction Testicular cancer CKD stage 3 secondary to diabetes CKD, October 2022! 08/2019 Cr 1.74 ... Elevated in 2020 2' Inf/ABx/HyperGly .. [ ] re-check 03/2021! Surgical History S/P cardiac catheterization 12/29/21 [facility] (Dr. Jerry Ramírez). PCI (via R radial artery) of mid-LAD. Balloon angioplasty and lithotripsy. 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 History of amputation of left lower extremity History of amputation of great toe Right History of cardiac defibrillator placement History of cataract removal with insertion of prosthetic lens (~03/02/18) Right History of gastric bypass (~07/01/14) History of cystoscopy (~12/25/13) History of tonsillectomy (~1979) History of orchiectomy, unilateral (~06/1999) Right Family History Mother Diabetes Father Diabetes Heart disease Hypertension Sister Diabetes Brother Diabetes Brother Diabetes Heart disease Hypertension Social History (Updated 05/03/24 @ 15:23 by Koby Cuello) Smoking/Tobacco Use Status: Former Tobacco Use tobacco type: cigarettes Quit Date: 07/18/98 Tobacco: How many years used: 10 Smokeless tobacco user: chewing tobacco Quit status: considering quitting Smoking risk assessment performed?: Yes Alcohol Intake: current Alcohol Intake frequency: 0-2 drinks per day Alcohol type: hard liquor Drug use: Never Substance use type: does not use Adopted: No Caregiver/Support person: No Foster care: No Household members: significant other Housing: house Do you need help understanding health information?: Rarely current occupation: Unemployed Sexually active: Yes Do you think of yourself as: straight/heterosexual Current gender identity: male Do you feel safe at home: Yes (getting out of relationship) Do you feel safe in your relationship?: Yes Additional Social history: moving out Meds Allergies and Home Medications Allergies Allergy/AdvReac Type Severity Reaction Status Date / Time tramadol AdvReac Severe renal Verified 04/19/24 08:43 failure insulin aspart AdvReac Mild HypOglycemi Verified 04/19/24 08:43 a Poor Renal Function AdvReac Unknown renal Uncoded 04/19/24 08:43 failure Home Medications ?Medication ?Instructions ?Recorded ?Confirmed ?Type Amputation Compression Sleeve #1 ea 01/26/21 05/03/24 Rx fore arm cuff crutches #1 ea 06/07/21 05/03/24 Rx Left Outer Sleeve #1 ea 12/07/21 05/03/24 Rx acetaminophen 325 mg tablet 650 mg (2 x 325 mg) PO Q4H PRN 04/02/22 05/03/24 Rx fever or pain #180 tabs azelastine 137 mcg (0.1 %) nasal See Rx Instructions intranasal BID 04/02/22 05/03/24 Rx spray #30 mL flash glucose scanning reader #1 ea 04/02/22 05/03/24 Rx (FreeStyle Luis 2 [place]) flash glucose sensor (FreeStyle #6 ea 04/02/22 05/03/24 Rx Luis 2 Sensor kit) Right prosthetic socket #1 ea 05/13/22 05/03/24 Rx clobetasol 0.05 % topical spray 1 applic topical BID 1 week #59 mL 08/19/22 05/03/24 Rx fluticasone propionate 50 1 spray intranasal DAILY #16 grams 12/02/22 05/03/24 Rx mcg/actuation nasal spray,suspension (Allergy Relief (fluticasone)) blood-glucose meter,continuous #1 ea 01/25/23 05/03/24 Rx (Propeller G7 [address] [employer]) glucometer WITH MATCHING TEST #1 ea 03/10/23 05/03/24 Rx STRIPS lancets #300 ea 03/10/23 05/03/24 Rx blood sugar diagnostic (Contour #100 ea 03/18/23 05/03/24 Rx Test Strips) pantoprazole 40 mg tablet,delayed 40 mg PO DAILY #90 tabs 05/22/23 05/03/24 Rx release ascorbic acid (vitamin C) 1,000 mg 500 mg (1/2 x 1,000 mg) PO DAILY 08/09/23 05/03/24 Rx tablet #90 tabs dapagliflozin propanediol 5 mg See Rx Instructions .Route 08/09/23 05/03/24 Rx tablet (Farxiga) .COMPLEX #28 tabs tiotropium bromide 2.5 See Rx Instructions .Route 10/10/23 05/03/24 Rx mcg/actuation mist for inhalation .COMPLEX #4 grams (Spiriva Respimat) Sleeve, Left BKA #1 ea 10/15/23 05/03/24 Rx Sleeve, Right BKA #1 ea 10/15/23 05/03/24 Rx pen needle, diabetic 31 gauge x #300 ea 10/20/23 05/03/24 Rx 3/16 (BD Ultra-Fine Mini Pen Needle) dupilumab 300 mg/2 mL subcutaneous 300 mg subcut Q2W 10/29/23 05/03/24 History syringe (Dupixent) BKA Prosthetics, B/L #2 ea 01/21/24 05/03/24 Rx clopidogrel 75 mg tablet 75 mg PO DAILY #30 tabs 01/26/24 05/03/24 Rx sodium bicarbonate 650 mg tablet 650 mg PO BID 01/27/24 05/03/24 History aspirin 81 mg tablet,delayed 81 mg PO DAILY #90 tabs 02/21/24 05/03/24 Rx release atorvastatin 10 mg tablet 10 mg PO DAILY #90 tabs 02/21/24 05/03/24 Rx carvedilol 12.5 mg tablet 12.5 mg PO BID #180 tabs 02/21/24 05/03/24 Rx cetirizine 10 mg tablet 10 mg PO DAILY #90 tabs 02/21/24 05/03/24 Rx cholecalciferol (vitamin D3) 25 25 mcg PO DAILY #90 caps 02/21/24 05/03/24 Rx mcg (1,000 unit) capsule cyanocobalamin (vitamin B-12) 1,000 mcg PO DAILY #90 caps 02/21/24 05/03/24 Rx 1,000 mcg capsule blood-glucose sensor (Dexcom G7 #3 ea 02/25/24 05/03/24 Rx Sensor device) insulin glargine 100 unit/mL (3 36 unit (0.36 mL) subcut QPM #15 mL 03/10/24 05/03/24 Rx mL) subcutaneous pen insulin lispro 100 unit/mL 1 sliding scale dose subcut 03/10/24 05/03/24 Rx subcutaneous pen (Humalog KwikPen USEASDIRECTD DM, E11.8 .. to jeep (U-100) Insulin) A1C < 7.5 #15 mL spironolactone 25 mg tablet 25 mg PO DAILY #90 tabs 03/30/24 05/03/24 Rx torsemide 20 mg tablet See Rx Instructions PO DAILY PRN 04/24/24 05/03/24 Rx Abdominal Edema #180 tabs indapamide 2.5 mg tablet 5 mg PO DAILY 05/03/24 05/03/24 History torsemide 100 mg tablet 100 mg PO DAILY 05/03/24 05/03/24 History Exam Narrative Exam Narrative: GEN: Alert and oriented x 4, pleasant and cooperative sitting up in bed, gives linear history. No acute distress at rest. HEENT: Head atraumatic. Conjunctiva clear, no icterus. EOMI right (left eye blind). no rhinorrhea. MMM, OP benign. Neck is supple with no masses or lymphadenopathy, trachea midline. No appreciable elevation of JVP LUNGS: CTAB with normal effort, I don't appreciate rales. CV: RRR with no murmurs, gallops, or rubs. ABD: active bowel sounds, soft, nontender and nondistended. No masses. EXT: no cyanosis, clubbing. Some trace edema in thighs/abdomen, natalia leg amputations. MSK: No joint redness or swelling NEURO: CN 2-12 grossly intact x left eye ptosis, blindness. Normal movement of 4 extremities (leg amputations). Normal speech and coordination. No tremor SKIN: No rashes or open wounds. PSYCH: normal mood and affect Results Imaging Chest x-ray: report reviewed (No acute pulmonary findings. ) and image reviewed EKG: report reviewed and image reviewed (NSR with some ectopy, rate 95, no ischemic changes, low voltage) Labs 05/03/24 08:45 05/03/24 08:45 Labs: Laboratory Results - last 24 hr 05/03/24 05/03/24 05/03/24 08:45 09:45 10:17 WBC 9.79 RBC 3.76 L Hgb 12.8 L Hct 38.7 L MCV 103 H MCH 34.0 H MCHC 33.1 RDW 14.6 H Plt Count 191 MPV 10.0 Immature Gran % 0.5 Neutrophils % 78.1 Lymphocytes % 7.6 Monocytes % 9.6 Eosinophils % 3.7 Basophils % 0.5 Nucleated RBC % 0.0 Absolute Neutrophils 7.65 H Absolute Lymphocytes 0.74 L Absolute Monocytes 0.94 H Absolute Eosinophils 0.36 Absolute Basophils 0.05 Sodium 134 L Potassium 3.2 L Chloride 91 L Carbon Dioxide 34.7 H Anion Gap 8.3 BUN 101 H* Creatinine 4.2 H* Est GFR (CKD-EPI 2020) 15.98 Glucose 167 H Calcium 8.8 Magnesium 2.4 Total Bilirubin 0.56 AST 11 L ALT 14 L Alkaline Phosphatase 101 Troponin I 254 H* 241 H* NT-Pro-B Natriuret Pep 59795 H Total Protein 6.8 Albumin 2.9 L Urine Color Yellow Urine Clarity Clear Urine pH 6.0 Ur Specific [place] 1.015 Urine Protein 100 H Urine Ketones Negative Urine Blood Negative Urine Nitrite Negative Urine Bilirubin Negative Urine Urobilinogen 0.2 Ur Leukocyte Esterase Negative Urine RBC Negative Urine WBC Negative Ur Epithelial Cells Negative Urine Crystals Negative Urine Bacteria Negative Urine Casts Negative Urine Mucus Negative Ur Culture Indicated? No Urine Glucose 100 H 05/03/24 11:45 WBC RBC Hgb Hct MCV MCH MCHC RDW Plt Count MPV Immature Gran % Neutrophils % Lymphocytes % Monocytes % Eosinophils % Basophils % Nucleated RBC % Absolute Neutrophils Absolute Lymphocytes Absolute Monocytes Absolute Eosinophils Absolute Basophils Sodium Potassium Chloride Carbon Dioxide Anion Gap BUN Creatinine Est GFR (CKD-EPI 2020) Glucose Calcium Magnesium Total Bilirubin AST ALT Alkaline Phosphatase Troponin I 241 H* NT-Pro-B Natriuret Pep Total Protein Albumin Urine Color Urine Clarity Urine pH Ur Specific [place] Urine Protein Urine Ketones Urine Blood Urine Nitrite Urine Bilirubin Urine Urobilinogen Ur Leukocyte Esterase Urine RBC Urine WBC Ur Epithelial Cells Urine Crystals Urine Bacteria Urine Casts Urine Mucus Ur Culture Indicated? Urine Glucose Last Vital Signs Temp 36.6 C 05/03/24 08:38 Pulse 96 H 05/03/24 14:01 Resp 19 05/03/24 14:01 BP 144/90 H 05/03/24 14:01 Pulse Ox 93 05/03/24 11:01 Time Spent Time spent with Patient: >75 minutes Time was spent: preparing to see the patient(eg.review tests), obtaining and/or reviewing separately otained hiistory, ordering medications,tests, procedures, referring, communicating with other health residential care facility manager, indepentently interpreting results, counseling the patient and care coordination
--- NOTE | 2024-05-03 15:55 | PHA.REVIEW2 ---
Pharmacy Admission Review Admission Clinical Review Admission Pharmacy Review: Anemia in CKD (chronic kidney disease) (Acute) Glucosuria (Acute) Proteinuria (Acute) Acute systolic (congestive) heart failure (Acute) Acute hypokalemia (Acute) DVT prophylaxis (Acute) CKD (chronic kidney disease) stage 4, GFR 15-29 ml/min (Acute) Hypertension associated with diabetes (Acute) Chronic systolic CHF (congestive heart failure) (Acute) tramadol Adverse Reaction (Severe, Verified 04/19/24 08:43) renal failure insulin aspart Adverse Reaction (Mild, Verified 04/19/24 08:43) HypOglycemia Poor Renal Function Adverse Reaction (Unknown, Uncoded 04/19/24 08:43) renal failure Resuscitation Status Full Code Height 5 ft 10.87 in Weight 169 kg Pharmacy Admission Review Renal Dosing Renal Dosing: BUN 101 mg/dL (7-18) H* 05/03/24 08:45 Creatinine 4.2 mg/dL (0.70-1.30) H* 05/03/24 08:45 Medications needing adjustments: Reviewed (CrCl 32.02 mL/min) Anticoagulation Anticoagulation: Hgb 12.8 g/dL (13.5-17.5) L 05/03/24 08:45 Hct 38.7 % (40.0-50.0) L 05/03/24 08:45 Plt Count 191 10^3/uL (130-400) 05/03/24 08:45 Creatinine 4.2 mg/dL (0.70-1.30) H* 05/03/24 08:45 DVT Prophylaxis: Reviewed (BMI is > 50 but CrCl close to 30 and patient has CKD. Will keep dose at 40mg daily for now, might increase to 40mg BID if kidney function improves back to baseline.) Medications: Enoxaparin (40mg daily) Relevant Labs Relevant Labs: Sodium 134 mmol/L (136-145) L 05/03/24 08:45 Potassium 3.2 mmol/L (3.5-5.1) L 05/03/24 08:45 Chloride 91 mmol/L (98-107) L 05/03/24 08:45 Magnesium 2.4 mg/dL (1.8-2.4) 05/03/24 08:45 Electrolytes, C-Reactive P, ESR: Reviewed (Na 134, K 3.2 - no orders put in for replacement) DM Control DM Control: Glucose 167 mg/dL (74-106) H 05/03/24 08:45 Finger Stick Blood Glucose 137 1310 Finger Stick Blood Glucose 137 1309 Finger Stick Blood Glucose 138 1216 Finger Stick Blood Glucose 138 1216 DM Control: Reviewed Insulin Dosing, Diabetic Medication: Has order for SS insulin, 5 units of aspart with meals and glargine 36 units at bedtime. Cardiac Review Cardiac Review: Troponin I 241 ng/L (<or=76) H* 05/03/24 11:45 NT-Pro-B Natriuret Pep 21541 pg/mL (<300) H 05/03/24 08:45 Blood Pressure : Heart Rate 143/78 : 87 1501 Troponin 241 05/03/24 1145 Blood Pressure : Heart Rate 129/76 : 86 1431 241 05/03/24 0945 Blood Pressure : Heart Rate 112/92 : 85 1421 254 05/03/24 0845 Blood Pressure : Heart Rate 144/90 : 96 1401 Blood Pressure : Heart Rate 156/101 : 96 1331 Blood Pressure : Heart Rate 153/108 : 95 1300 Blood Pressure : Heart Rate 156/97 : 97 1231 Blood Pressure : Heart Rate 164/96 : 96 1200 Blood Pressure : Heart Rate 149/98 : 95 1101 Blood Pressure : Heart Rate 157/103 : 92 1101 Blood Pressure : Heart Rate 150/104 : 91 0958 Blood Pressure : Heart Rate 148/104 : 92 0946 Blood Pressure : Heart Rate 147/98 : 92 0931 Blood Pressure : Heart Rate 143/98 : 93 0916 Blood Pressure : Heart Rate 146/96 : 95 0901 Blood Pressure : Heart Rate 149/95 : 95 0846 Blood Pressure : Heart Rate 149/95 : 97 0841 BP, HR, EF%: Intervened List meds needing interventions: has order for carvedilol 12.5mg BID, furosemide infusion, indapamide 5mg daily and spironolactone 25mg daily. Furosemide infusion has not been documented as started yet, BP remains elevated but seems to have improved from early levels. Troponin slightly elevated but decreasing. Provider initially also put in order for torsemide, reached out regarding duplicate therapy and he said he will hold it for now due to furosemide infusion. QTc Review QTc: Reviewed (481 from 05/03/24) IV to PO Switch IV Medications: Reviewed (furosemide infusion) Home Meds Home Med List reviewed: Reviewed Relevent Home Meds Not ordered & why?: Farxiga (has SS insulin), Dupixent (every 2 weeks) and torsemide (on hold per H+P - on furosemide infusion) Current Meds Current Medication Order Review: Intervened Comments: Added IV admission order set Added 2nd PRN to APAP order per pharmacy protocol Retimed pantoprazole from 0830 to 0730 per pharmacy protocol
--- NOTE | 2024-05-03 16:44 | W.PC.ACHO ---
Registration Status: Primary Language: Preferred Language: ED Information & Data Chief Complaint GenMedical 05/03/24 08:50 Chief Complaint GenMedical 05/03/24 08:38 Triage Note Weakness x2-3 days. Denies 05/03/24 08:38 chest pain. C/o SOB w/ exertion. Pt states he slid out of his wheelchair today, denies injuries. Pt states he weas unable to prevent this 2/2 to weakness . Medical / Surgical History (Last Reviewed 05/03/24 @ 15:22 by Koby Cuello) CKD stage 3 secondary to diabetes SARS-CoV-2 positive (~04/14/22) Dehydration Hypercalcemia (~02/21/22) Elevated troponin Positive cardiac stress test Edema of abdomen Neck pain Decreased range of motion (ROM) of right knee Psoriasis Carpal tunnel syndrome of left wrist Cubital bursitis of right elbow Diabetic foot ulcer associated with type 2 diabetes mellitus Hx: recurrent pneumonia Cervical neuropathy Tendonitis of long head of biceps brachii of right shoulder Bursitis of right shoulder Right shoulder pain Finger pain, left Nasal polyps Erectile dysfunction Testicular cancer (Last Reviewed 05/03/24 @ 15:22 by Koby Cuello) S/P cardiac catheterization Hx of right BKA History of amputation of left lower extremity History of amputation of great toe History of cardiac defibrillator placement History of cataract removal with insertion of prosthetic lens (~03/02/18) History of gastric bypass (~07/01/14) History of cystoscopy (~12/25/13) History of tonsillectomy (~1979) History of orchiectomy, unilateral (~06/1999) Most Recent Vital Signs Temperature 36.6 C 05/03/24 08:38 Pulse 86 05/03/24 16:01 Pulse Rhythm Regular 05/03/24 09:58 Pulse Strength Normal 05/03/24 09:58 Pulse 86 05/03/24 16:01 Respiratory Rate 13 05/03/24 16:01 Respiratory Effort Normal 05/03/24 09:58 Respiratory Depth Normal 05/03/24 09:58 Respiratory Pattern Normal 05/03/24 09:58 Blood Pressure 137/86 05/03/24 16:01 Blood Pressure Mean 103 05/03/24 16:01 Blood Pressure Position Sitting 05/03/24 09:58 Pulse Oximetry 95 05/03/24 16:01 Oxygen Delivery Method Nasal Cannula 05/03/24 15:21 Oxygen Flow Rate 2 05/03/24 15:21 Pain Level 0 05/03/24 09:58 Allergies tramadol Adverse Reaction (Severe, Verified 04/19/24 08:43) renal failure CrCl <30 mL/minute: Immediate release: Increase dosing interval to every 12 hours; maximum: 200 mg/day. ER formulation should be avoided. insulin aspart Adverse Reaction (Mild, Verified 04/19/24 08:43) HypOglycemia Highly sensitive to fast-acting insulin; canNOT use typical RISS. Poor Renal Function Adverse Reaction (Unknown, Uncoded 04/19/24 08:43) renal failure Baseline GFR < 30! .. with CHANEL GFR @ 20 (-09/2022), ik Active Medications Generic Name Dose Route Start Last Admin Trade Name Freq PRN Reason Stop Dose Admin Enoxaparin Sodium 40 mg 05/03/24 14:00 05/03/24 14:36 Enoxaparin 40 Mg/0.4 Ml Syr SC 40 mg Q24H PHILIPP Administration Insulin Aspart 0 units 05/03/24 12:00 05/03/24 13:10 Insulin Aspart 300 Units/3 Ml Pen SC Not Given 0800,1200,1700 PHILIPP Protocol Insulin Aspart 5 units 05/03/24 17:00 05/03/24 13:09 Insulin Aspart 300 Units/3 Ml Pen SC 5 unit 0800,1200,1700 PHILIPP Administration Diet Orders Category Date Time Status Diabetes Consistent CHO/Low Na [DIET] Nutrition 05/03/24 Lunch Active Diagnostics 05/03/24 05/03/24 05/03/24 Range/Units 11:45 10: 09:45 WBC (4.4-10.8) 10^3/uL RBC (4.36-5.78) 10^6/uL Hgb (13.5-17.5) g/dL Hct (40.0-50.0) % MCV (80-95) fL MCH (27.0-33.0) pg MCHC (32.0-36.0) % RDW (11.8-14.1) % Plt Count (130-400) 10^3/uL MPV (8.0-11.0) fL Immature Gran % % Neutrophils % % Lymphocytes % % Monocytes % % Eosinophils % % Basophils % % Nucleated RBC % (0.0-0.3) % Absolute Neutrophils (1.2-6.7) 10^3/uL Absolute Lymphocytes (1.2-3.4) 10^3/uL Absolute Monocytes (0.1-0.8) 10^3/uL Absolute Eosinophils (0.0-0.7) 10^3/uL Absolute Basophils (0.0-0.2) 10^3/uL Sodium (136-145) mmol/L Potassium (3.5-5.1) mmol/L Chloride (98-107) mmol/L Carbon Dioxide (21.0-32.0) mmol/L Anion Gap (3-11) mmol/L BUN (7-18) mg/dL Creatinine (0.70-1.30) mg/dL Est GFR (CKD-EPI 2020) (mL/min/1.73m2) Glucose (74-106) mg/dL Calcium (8.5-10.1) mg/dL Magnesium (1.8-2.4) mg/dL Total Bilirubin (0.2-1.0) mg/dL AST (15-37) U/L ALT (16-63) U/L Alkaline Phosphatase (46-116) U/L Troponin I 241 H* 241 H* (<or=76) ng/L NT-Pro-B Natriuret Pep (<300) pg/mL Total Protein (6.4-8.2) g/dL Albumin (3.4-5.0) g/dL Urine Color Yellow (Yellow) Urine Clarity Clear (Clear) Urine pH 6.0 (5-8) Ur Specific S[place]tuck 1.015 (1.005-1.025) Urine Protein 100 H (Neg-Trace) mg/dL Urine Ketones Negative (Negative) mg/dL Urine Blood Negative (Negative) Urine Nitrite Negative (Negative) Urine Bilirubin Negative (Negative) Urine Urobilinogen 0.2 (Up to 0.2) mg/dL Ur Leukocyte Esterase Negative (Negative) Urine RBC Negative (0-2) HPF Urine WBC Negative (0-5) HPF Ur Epithelial Cells Negative (Negative) HPF Urine Crystals Negative (Negative) HPF Urine Bacteria Negative (Negative) HPF Urine Casts Negative (Negative) LPF Urine Mucus Negative (Negative) Ur Culture Indicated? No Urine Glucose 100 H (Negative) mg/dL 05/03/24 Range/Units 08:45 WBC 9.79 (4.4-10.8) 10^3/uL RBC 3.76 L (4.36-5.78) 10^6/uL Hgb 12.8 L (13.5-17.5) g/dL Hct 38.7 L (40.0-50.0) % MCV 103 H (80-95) fL MCH 34.0 H (27.0-33.0) pg MCHC 33.1 (32.0-36.0) % RDW 14.6 H (11.8-14.1) % Plt Count 191 (130-400) 10^3/uL MPV 10.0 (8.0-11.0) fL Immature Gran % 0.5 % Neutrophils % 78.1 % Lymphocytes % 7.6 % Monocytes % 9.6 % Eosinophils % 3.7 % Basophils % 0.5 % Nucleated RBC % 0.0 (0.0-0.3) % Absolute Neutrophils 7.65 H (1.2-6.7) 10^3/uL Absolute Lymphocytes 0.74 L (1.2-3.4) 10^3/uL Absolute Monocytes 0.94 H (0.1-0.8) 10^3/uL Absolute Eosinophils 0.36 (0.0-0.7) 10^3/uL Absolute Basophils 0.05 (0.0-0.2) 10^3/uL Sodium 134 L (136-145) mmol/L Potassium 3.2 L (3.5-5.1) mmol/L Chloride 91 L (98-107) mmol/L Carbon Dioxide 34.7 H (21.0-32.0) mmol/L Anion Gap 8.3 (3-11) mmol/L BUN 101 H* (7-18) mg/dL Creatinine 4.2 H* (0.70-1.30) mg/dL Est GFR (CKD-EPI 2020) 15.98 (mL/min/1.73m2) Glucose 167 H (74-106) mg/dL Calcium 8.8 (8.5-10.1) mg/dL Magnesium 2.4 (1.8-2.4) mg/dL Total Bilirubin 0.56 (0.2-1.0) mg/dL AST 11 L (15-37) U/L ALT 14 L (16-63) U/L Alkaline Phosphatase 101 (46-116) U/L Troponin I 254 H* (<or=76) ng/L NT-Pro-B Natriuret Pep 00477 H (<300) pg/mL Total Protein 6.8 (6.4-8.2) g/dL Albumin 2.9 L (3.4-5.0) g/dL Urine Color (Yellow) Urine Clarity (Clear) Urine pH (5-8) Ur Specific S[place] (1.005-1.025) Urine Protein (Neg-Trace) mg/dL Urine Ketones (Negative) mg/dL Urine Blood (Negative) Urine Nitrite (Negative) Urine Bilirubin (Negative) Urine Urobilinogen (Up to 0.2) mg/dL Ur Leukocyte Esterase (Negative) Urine RBC (0-2) HPF Urine WBC (0-5) HPF Ur Epithelial Cells (Negative) HPF Urine Crystals (Negative) HPF Urine Bacteria (Negative) HPF Urine Casts (Negative) LPF Urine Mucus (Negative) Ur Culture Indicated? Urine Glucose (Negative) mg/dL [id number] Documentation Fingerstick Glucose Start: 05/03/24 11:53 Freq: .AC Status: Active Protocol: Activity Type Activity Date Activity User E-sign Co-sign Detail Recorded Client Recorded Date Recorded By Document 05/03/24 12:16 BKG DAEMON(3) [id number] 05/03/24 12:18 BKG DAEMON(4) Intake and Output - 24 Hour Total 05/03/24 08:29 thru 05/03/24 14:00 Output Total 875 Balance -875 Weight 169 kg Output: Urine 875 Other: Urine Color Pale Yellow Urine Appearance Clear Urinary Catheter Urinary Catheter Date of 05/03/24 Insertion [Urethral (Quigley)] Time of insertion [Urethral ( 13:15 Quigley)] Falls Risk Assessment History of Falls Previous History 05/03/24 08:52 Contributing Factors Impairments 05/03/24 08:52 Ambulatory Aids Uses ambulatory device 05/03/24 08:52 Tubes/Lines None 05/03/24 08:52 Gait Evaluation No gait disturbance 05/03/24 08:52 Cognition No cognitive impairment 05/03/24 08:52 Fall Total Score 33 05/03/24 08:52 Level of Risk Moderate Risk 05/03/24 08:52 Problems (Last Reviewed 05/03/24 @ 15:22 by Koby Cuello) Anemia in CKD (chronic kidney disease) (Acute) Glucosuria (Acute) Proteinuria (Acute) Acute systolic (congestive) heart failure (Acute) Acute hypokalemia (Acute) DVT prophylaxis (Acute) CKD (chronic kidney disease) stage 4, GFR 15-29 ml/min (Acute) Hypertension associated with diabetes (Acute) Diabetes mellitus with complication in adult patient (Chronic) Chronic systolic CHF (congestive heart failure) (Acute) Notes 05/03/24 14:26 Nursing Notes by Iker Middleton Nursing Note: Pt presented a 12 beat run of possible VTach (confirmed by ED physician). Pt was asleep at the time (this health technical writer woke him up). Denies CP/SOB. Vitals: BP 112/92 HR 85 (s/p event) SpO2 93% Initialized on 05/03/24 14:26 - END OF NOTE v v v v v v v v v Sending and/or Receiving Nurses: Please use comment section below to note any information pertinent to the patient hand-off not included above. Information / Comments: A&O x3, able to make needs known, regular hr on tele, on 2L NC due to decompensation during periods of sleep, quigley in place and draining, continent of bowel, Bilateral BKA, 18G to left AC. Report received from: Iker ESPINOZA in ER at 1640.
[2024-05-03] MEDS: Sodium Bicarbonate 650 MG TAB PO (20:11)
[2024-05-03] MEDS: Carvedilol 12.5 MG TAB PO (20:11)
[2024-05-03] MEDS: Insulin Glargine 300 UNITS/3 ML PEN 36 UNITS SC (20:12)
[2024-05-03] MEDS: Normal Saline Flush 10 ML SYR IVP (20:12)
[2024-05-03] MEDS: Furosemide 40 MG/4 ML VIAL IVP (20:59)
[2024-05-03] MEDS: Potassium Chloride 20 MEQ TABCR 40 MEQ PO (23:00)
[2024-05-03] MEDS: Lidocaine 2% Jelly 11 ML SYR UR (23:04)
[2024-05-04] MEDS: Acetaminophen 325 MG TAB 650 MG PO ×2 (02:23→21:28)
[2024-05-04 03:41] VITALS: BP 101/60; PULSE 85; RESP 18; TEMP 36.8; O2SAT 92
[2024-05-04 06:50] LABS: HCT 37.8 % (40.0-50.0); HGB 12.4 g/dL (13.5-17.5); MCH 33.7 pg (27.0-33.0); MCHC 32.8 % (32.0-36.0); MCV 103 fL (80-95); MPV 10.7 fL (8.0-11.0); Platelet Count 177 10^3/uL (130-400); RBC 3.68 10^6/uL (4.36-5.78); RDW 14.6 % (11.8-14.1); RDW-SD 54.7 fL; WBC 9.34 10^3/uL (4.4-10.8)
[2024-05-04 07:10] LABS: Hemoglobin A1C 7.3 % (<5.7)
[2024-05-04 07:35] LABS: Anion Gap 9.4 mmol/L (3-11); CO2 33.6 mmol/L (21.0-32.0); Calcium 8.7 mg/dL (8.5-10.1); Chloride 92 mmol/L (98-107); Estimated GFR 16.45 (mL/min/1.73m2); Glucose 156 mg/dL (74-106); Magnesium 2.3 mg/dL (1.8-2.4); Potassium 3.8 mmol/L (3.5-5.1); Sodium 135 mmol/L (136-145)
[2024-05-04 07:36] LABS: Vitamin B12 > 2000 pg/mL (193-986)
[2024-05-04 07:37] LABS: BUN 97 mg/dL (7-18); CREATININE 4.1 mg/dL (0.70-1.30)
[2024-05-04 07:42] VITALS: BP 131/87; PULSE 83; RESP 15; TEMP 35.4; O2SAT 91
[2024-05-04] MEDS: Tiotropium Bromide-Respimat 10 PUFF INH 2 PUFF IH (08:02)
[2024-05-04] MEDS: Insulin Aspart 300 UNITS/3 ML PEN SC ×5 (09:00→18:09)
[2024-05-04] MEDS: Cyanocobalamin 500 MCG TAB 1000 MCG PO (09:01)
[2024-05-04] MEDS: Potassium Chloride 20 MEQ TABCR PO ×3 (09:01→21:28)
[2024-05-04] MEDS: Clopidogrel 75 MG TAB PO (09:01)
[2024-05-04] MEDS: Aspirin E.C. 81 MG TABEC PO (09:01)
[2024-05-04] MEDS: Cetirizine 10 MG TAB PO (09:01)
[2024-05-04] MEDS: Sodium Bicarbonate 650 MG TAB PO ×2 (09:01→21:28)
[2024-05-04] MEDS: Atorvastatin 10 MG TAB PO (09:01)
[2024-05-04] MEDS: Ascorbic Acid 500 MG TAB PO (09:01)
[2024-05-04] MEDS: Spironolactone 25 MG TAB PO (09:01)
[2024-05-04] MEDS: Pantoprazole 40 MG TABCR PO (09:01)
[2024-05-04] MEDS: Cholecalciferol (Vitamin D3) 1,000 UNIT TAB 1000 UNITS PO (09:01)
[2024-05-04] MEDS: Carvedilol 12.5 MG TAB PO ×2 (09:01→21:27)
--- NOTE | 2024-05-04 10:00 | DI.US_ITS ---
APPROVED REPORT EXAM: Comprehensive 2D, Doppler, and color-flow Echocardiogram Patient Location: In-Patient Room/Bed: 210 Retail Agent: Med Croft RDCS (AE) Indications: HFrEF with acute CHF, update cardiac function Other Information Technically limited study due to body habitus, inability to position patient. Conclusion Left ventricle is moderately dilated. Ejection fraction is 25%. There is severe global hypo to sheyla esis Moderately enlarged and hypocontractile right ventricle Both atria are enlarged No significant structural valvular abnormalities are identified Estimated right ventricular systolic pressure is 55 mmHg There has been no interval change compared to an echocardiogram from October 2023 Wall motion Left Ventricle Left ventricle is moderately dilated. Left ventricular ejection fraction is decreased. There is globa l hypokinesis of the left ventricle. There is no ventricular septal defect visualized. LVEF is 25%. Right Ventricle Right ventricle is mildly dilated. Right ventricular systolic function could not be assessed. Device lead is present in the right ventricle. Atria Left atrium is moderately dilated. Right atrium is moderately dilated. The interatrial septum is inta ct with no evidence for an atrial septal defect. Aortic Valve The aortic valve is normal in structure. Aortic valve is trileaflet. There is no aortic valvular sten osis. No aortic regurgitation is present. Mitral Valve Mild mitral annular calcification. No evidence of mitral valve stenosis. Mild mitral regurgitation. Tricuspid Valve The tricuspid valve is normal in structure. There is no tricuspid valve stenosis. Mild tricuspid regu rgitation. The RVSP is 54.8 mmHg. Pulmonic Valve The pulmonary valve is normal in structure. There is no pulmonic valvular stenosis. Mild pulmonic reg urgitation. Great Vessels The aortic root is normal in size. The ascending aorta is normal in size. Aortic arch is normal in ca liber. The IVC is dilated. The IVC collapses <50% with inspiration. Pericardium There is no pericardial effusion. 2D Dimensions IVSD d PLAX 1.15 cm M: 0.6-1.2 Ao Root d 2.98 cm M: 3.1 - 3.7 LVPW d PLAX 1.13 cm M: 0.6 - 1.2 Ao Asc Diam d 2.80 cm M: 2.6 - 3.4 LVID d PLAX 6.98 cm M: 4.2 - 5.8 LVDs 6.16 cm M: 2.5 - 4.0 LV EF Teichholz 24.6 % FS 11.71 % LV EDV (Teich) 253.8 mL LV ESV (Teich) 191.3 mL Stroke Vol Index (Teich) 26.47 M-Mode TAPSE 0.88 cm (M/F) >1.7 Auto EF LV EDV A4C 269.7 mL LV EDV A2C 281.2 mL LV EDV BP 277.0 mL LV ESV A4C 210.8 mL LV ESV A2C 219.9 mL LV ESV BP 217.8 mL LVEF(%) A4C 21.8 % LVEF(%) A2C 21.8 % LVEF(%) BP 21.4 % LV SV A4C 58.9 ml LV SV A2C 61.3 ml LV SV BP 59.2 ml LV CO A4C 4.8 L/min LV CO A2C 5.0 L/min LV CO BP 4.9 L/min HR A4C 81.82 BPM HR A2C 82.38 BPM LV EDV Index (BP) LA Volume LA Length A4C 7.2 cm LA Length A2C LA Area A4C s 35.89 cm2 LA Area A2C s LA Vol A4C A-L 150.88 mL LA Vol A2C A-L LA Vol Biplane A-L LA Vol A4C MOD 146.4 mL LA Vol A2C MOD LA Vol BP MOD RA Volume RA Area A4C 30.9 cm2 RA ESV A4C (A-L) 115.0mL RA Vol/BSA A4C A-L RA Length A4C 7.0 cm RA ESV A4C (MOD) 109.1mL LV Diastology MV E' medial 0.045 (>0.07 m/s) MV E Vmax 1.07 (0.4-1.3 m/s) MV E/E' MED 23.67 (<14) MV A Vmax 0.40 (0.4-1.3 m/s) E/A Ratio 2.7 Aortic Valve AoV Vmax 1.00 m/s LVOT Vmax 0.64 m/s AoV Peak Grad 4.0 mmHg LVOT Peak Grad 1.6 mmHg AoV Area (Vmax) 2.51 cm2 LVOT VTI 0.100 m AoV VTI 0.193 m LVOT Mean Grad 0.8 mmHg AoV Mean Yemi. 0.68 m/s LVOT SV 39.04 mL AoV Mean Grad 2.2 mmHg LVOT Diam s 2.20 cm AoV Area (VTI) 2.03 cm2 AV Regurg Peak Gr. 3.97 mmHg Velocity Ratio 0.64 Mitral Valve MV DT 167 (160-240 msec) MV Vmax TIPS 1.04 m/s MV Mean Grad 1.7 (<2mmHg) MV VTI 0.247 m Pulmonary Valve RVOT Vmax 0.35 m/s RVOT Peak Gr. 0.5 mmHg RVOT VTI 0.067 m RVOT Mean Gr. 0.3 mmHg Tricuspid Valve RA Pressure 15.00 mmHg TR Vmax 3.16 m/s TR Peak Grad 39.8 mmHg RVSP (TR) 54.8 mmHg
--- NOTE | 2024-05-04 10:07 | NUR.NOTE ---
In chart for educational/quality protocol review Nursing Note:
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
[2024-05-04 13:00] LABS: TSH (W/Ref FT4) 4.11 uIU/mL (0.36-3.74)
[2024-05-04 13:17] LABS: FREE T4 1.07 ng/dL (0.76-1.46)
[2024-05-04] MEDS: Enoxaparin 40 MG/0.4 ML SYR SC (13:59)
--- NOTE | 2024-05-04 15:30 | NUR.NOTE ---
Nursing Note: Received pt from Lexi ESPINOZA at 1530. Pt resting in bed, refused turn at that time. VSS, no s/sx of distress noted and no current complaints, will CTM.
[2024-05-04 15:31] VITALS: BP 131/86; PULSE 86; RESP 15; TEMP 35.6; O2SAT 97
--- NOTE | 2024-05-04 18:56 | PGE_ITS ---
Date of Service Date of service: 05/04/24 Time of Service: 16:00 Assessment and Plan Assessment and plan (1) Acute systolic (congestive) heart failure: Status: Acute Assessment and plan: Echocardiogram performed today Reading pending. May need cardiology consultation Continue IV diuresis with furosemide Follow [facility]. (2) Chronic systolic CHF (congestive heart failure): Status: Acute Assessment and plan: Secondary to ischemic cardiomyopathy He is on beta-adithya, SGLT2i, spironolactone. Not on HALI/ARB/ARNI. Discussed with pharmacy, spironolactone not effective at this level of renal performance. Spironolactone is discontinued. (3) Hypertension associated with diabetes: Status: Acute Assessment and plan: continue outpatient medications, additional diureiss. (4) Diabetes mellitus with complication in adult patient: Status: Chronic Assessment and plan: Last A1c 8.4 in December, will repeat with AM labs. Continue outpatient basal/bolus insulin Also on SLGT2i, but this won't help glucose with his GFR. At current renal performance, the SGLT 2 inhibitor is not effective He could consider GLP-1, would likely benefit with his CAD, but defer to outpatient. (5) CKD (chronic kidney disease) stage 4, GFR 15-29 ml/min: Status: Acute Assessment and plan: GFR slightly above his recents, needs diuresis. Monitor daily laboratories including BMP and magnesium (6) Anemia in CKD (chronic kidney disease): Status: Acute Assessment and plan: Likely related to CKD, but interestingly was not anemic recently, so will follow in case we are missing some blood loss. MCV high, get b12 (7) Elevated troponin: Assessment and plan: Elevated but not dynamic, due to CKD and chornic heart disease. Not c/w ACS (8) DVT prophylaxis: Status: Acute Assessment and plan: enoxaparin, pharmacy can adjust dose based on BMI and CKD if needed Subjective Subjective Interval history since last seen: Clinical course reviewed including notes, orders, labs, vitals, meds, imaging, and cultures. Care is discussed with primary nurse. Patient denies any chills fever nausea vomit or diarrhea. States he is having trouble breathing. He is quite short of breath Continues on Lasix drip I/O over the last 24 hours is 2.7 L negative Exam Narrative Exam Narrative: Patient is alert and oriented x 3 and in no acute distress. Examined laying in bed. HEENT: Neck supple, MM pink and moist, conjunctiva non-injected, sclera non- icteric, Pupils equal and reactive to light symmetrically, no JVD, no A waves. No thyromegaly. No carotid bruit CHEST: Bilaterally symmetrical with inspiration and expiration. No use of accessory muscles of respiration. No nasal flaring. RESP: Clear to auscultation bilaterally, no rales, rhonchi or wheeze, no pleural friction rub, no post-tussive crackles or apical rales. COR: RRR without murmur, normal S1, S2, no rub or gallop ABDOMEN: Obese, soft, non tender diffusely, normally active bowel sounds diffusely, No hepatosplenomegaly, No abdominal bruit, no masses, no tenderness on deep abdominal palpation. G/U: deferred Rectal: deferred MUSCULOSKELETAL: Bilaterally symmetrical, no muscle belly tenderness or mass DERMIS: Skin warm and dry, no ulcers or rashes, EXTREMITIES: Bilateral BKA NEUROLOGICAL: Cranial nerves intact II-XII no focal deficits noted. . Objective Last Vital Signs Temp 35.6 C L 05/04/24 15:31 Pulse 86 05/04/24 15:31 Resp 15 05/04/24 15:31 BP 131/86 05/04/24 15:31 Pulse Ox 97 05/04/24 15:31 Laboratory Results - last 24 hr 05/04/24 05/04/24 05/04/24 05:28 05:28 05:28 WBC 9.34 RBC 3.68 L Hgb 12.4 L Hct 37.8 L MCV 103 H MCH 33.7 H MCHC 32.8 RDW 14.6 H Plt Count 177 MPV 10.7 Sodium 135 L Potassium 3.8 Chloride 92 L Carbon Dioxide 33.6 H Anion Gap 9.4 BUN 97 H* Creatinine 4.1 H* Est GFR (CKD-EPI 2020) 16.45 Glucose 156 H Hemoglobin A1c 7.3 H Calcium 8.7 Magnesium Cancelled 2.3 Vitamin B12 > 2000 H Cancelled TSH 4.11 H Free T4 1.07 PAWSS Have you Been Recently Intoxicated or Drunk Within the Last 30 days?: Yes Have you Ever Experienced Previous Episodes of Alcohol Withdrawal?: No Have you ever Experienced Withdrawal Seizures?: No Have you ever Experienced Delirium Tremens(DT)s?: No Have you ever undergone Alcohol Rehabilitation Treatment (i.e, inpt ot outpatient treatment programs)?: No Have you ever Experienced Blackouts?: No Have you ever Combined Alcohol with other Downers within the last 90 days?: No Have you ever Combined Alcohol with any other Substance of Abuse during the last 90 days?: No Positive Blood Alcohol level on Presentation? [PCS.BAL]: No Evidence of Increased Autonomic Activity (i.e. HR>120, tremor, sweating, agitation, nausea)?: No Result: 1 Time Spent with Patient Time Spent with Patient: 35-49 minutes Time was spent: preparing to see the patient(eg.review tests), obtaining and/or reviewing separately otained hiistory, ordering medications,tests, procedures, referring, communicating with other health intensive care specialist, indepentently interpreting results, counseling the patient and care coordination
[2024-05-04] MEDS: Normal Saline Flush 10 ML SYR IVP (21:25)
[2024-05-04] MEDS: Lidocaine 2% Jelly 11 ML SYR UR (21:27)
[2024-05-04] MEDS: Melatonin 3 MG TAB 6 MG PO (21:27)
[2024-05-04 21:29] VITALS: BP 121/81; PULSE 87; RESP 18; TEMP 36.1; O2SAT 95
[2024-05-04] MEDS: Insulin Glargine 300 UNITS/3 ML PEN 36 UNITS SC (21:58)
[2024-05-04] MEDS: Nystatin POWDER 15 GM JAR TP (23:32)
[2024-05-05] VITALS (7 sets, daily range): BP systolic 117–143; BP diastolic 81–97; PULSE 82–92; RESP 15–19; TEMP 35.6–36.5; O2SAT 92–98
[2024-05-05] MEDS: Lidocaine 5% Patch 1 PATCH TP ×2 (05:55→23:40)
[2024-05-05 07:08] LABS: Anion Gap 7.5 mmol/L (3-11); CO2 35.5 mmol/L (21.0-32.0); Calcium 8.9 mg/dL (8.5-10.1); Chloride 92 mmol/L (98-107); Estimated GFR 16.95 (mL/min/1.73m2); Glucose 110 mg/dL (74-106); Magnesium 2.2 mg/dL (1.8-2.4); Potassium 4.1 mmol/L (3.5-5.1); Sodium 135 mmol/L (136-145)
[2024-05-05 07:14] LABS: BUN 103 mg/dL (7-18)
[2024-05-05] MEDS: Carvedilol 12.5 MG TAB PO ×2 (07:54→21:11)
[2024-05-05] MEDS: Cetirizine 10 MG TAB PO (07:54)
[2024-05-05] MEDS: Atorvastatin 10 MG TAB PO (07:54)
[2024-05-05] MEDS: Ascorbic Acid 500 MG TAB PO (07:54)
[2024-05-05] MEDS: Pantoprazole 40 MG TABCR PO (07:54)
[2024-05-05] MEDS: Cholecalciferol (Vitamin D3) 1,000 UNIT TAB 1000 UNITS PO (07:54)
[2024-05-05] MEDS: Potassium Chloride 20 MEQ TABCR PO ×3 (07:54→21:12)
[2024-05-05] MEDS: Clopidogrel 75 MG TAB PO (07:55)
[2024-05-05] MEDS: Fluticasone NASAL SPRAY 16 GM BTL NS (07:55)
[2024-05-05] MEDS: Aspirin E.C. 81 MG TABEC PO (07:55)
[2024-05-05] MEDS: Insulin Aspart 300 UNITS/3 ML PEN SC ×5 (08:01→17:40)
[2024-05-05] MEDS: Nystatin POWDER 15 GM JAR TP ×3 (08:02→21:11)
[2024-05-05] MEDS: Sodium Bicarbonate 650 MG TAB PO ×2 (08:19→21:11)
[2024-05-05] MEDS: Cyanocobalamin 500 MCG TAB 1000 MCG PO (08:19)
[2024-05-05] MEDS: Tiotropium Bromide-Respimat 10 PUFF INH 2 PUFF IH (08:24)
--- NOTE | 2024-05-05 10:38 | NUR.NOTE ---
Nursing Note: in chart as pt requested lidocaine prn for quigley care
--- NOTE | 2024-05-05 11:24 | NUR.NOTE ---
Nursing Note:Pt c.o. pain d/t dann. Stated lidocaine humphrey worked last night. Dr. Yuen made aware.
[2024-05-05 11:33] LABS: Abs Immature Grans 0.03 10^3/uL (0.0-0.06); Absolute Basophil Count 0.04 10^3/uL (0.0-0.2); Absolute Eosinophil Count 0.33 10^3/uL (0.0-0.7); Absolute Lymphocyte Count 0.86 10^3/uL (1.2-3.4); Absolute Neutrophil Count 6.54 10^3/uL (1.2-6.7); Basophils % 0.5 %; Eosinophils % 3.8 %; HCT 39.2 % (40.0-50.0); HGB 12.7 g/dL (13.5-17.5); Immature Grans % 0.3 %; MCH 33.8 pg (27.0-33.0); MCHC 32.4 % (32.0-36.0); MCV 104 fL (80-95); MPV 10.6 fL (8.0-11.0); Monocytes % 9.3 %; Neutrophils % 76.1 %; Platelet Count 173 10^3/uL (130-400); RBC 3.76 10^6/uL (4.36-5.78); RDW 14.6 % (11.8-14.1); RDW-SD 56.7 fL
[2024-05-05] MEDS: Lidocaine 2% Jelly 11 ML SYR UR (12:32)
[2024-05-05] MEDS: Patch Removal 1 EACH TP (12:33)
--- NOTE | 2024-05-05 14:26 | W.PM.PROGNOT ---
Date of Service Date of service: 05/05/24 Time of Service: 14:26 Assessment and Plan Assessment and plan (1) Acute systolic (congestive) heart failure: Status: Acute Assessment and plan: Echocardiogram performed yesterday Reading is noted with LVEF approximately 25% and global hypokinesis noted. Continue IV diuresis with furosemide, today, patient's is 5 L negative Follow I&O. (2) Chronic systolic CHF (congestive heart failure): Status: Acute Assessment and plan: Secondary to ischemic cardiomyopathy He is on beta-adithya, SGLT2i. Not on HALI/ARB/ARNI. Discussed with pharmacy, spironolactone not effective at this level of renal performance. Spironolactone was discontinued. (3) Hypertension associated with diabetes: Status: Acute Assessment and plan: continue outpatient medications, additional diureiss. (4) Diabetes mellitus with complication in adult patient: Status: Chronic Assessment and plan: Last A1c 8.4 in December, will repeat with AM labs. Continue outpatient basal/bolus insulin Also on SLGT2i, but this won't help glucose with his GFR. At current renal performance, the SGLT 2 inhibitor is not effective He could consider GLP-1, would likely benefit with his CAD, but defer to outpatient. (5) CKD (chronic kidney disease) stage 4, GFR 15-29 ml/min: Status: Acute Assessment and plan: GFR slightly above his recents, needs diuresis. Monitor daily laboratories including BMP and magnesium (6) Anemia in CKD (chronic kidney disease): Status: Acute Assessment and plan: Likely related to CKD Vitamin B12 level greater than 2000 (7) Elevated troponin: Assessment and plan: Elevated but not dynamic, due to CKD and chornic heart disease. Not c/w ACS (8) DVT prophylaxis: Status: Acute Assessment and plan: enoxaparin, pharmacy can adjust dose based on BMI and CKD if needed Subjective Subjective Interval history since last seen: Clinical course reviewed including notes, orders, labs, vitals, meds, imaging, and cultures. Care is discussed with primary nurse. Patient continues to complain of difficulty breathing through his nose. He does not want to be treated with oral antihistamines or intranasal steroids. These were offered to him and he declined. He has been having some feeling of fullness in his lower pelvic area likely related to the Negron catheter. The balloon was deflated and then reinserted started and inflated again but he continues to have some discomfort. Patient denies any chills fever nausea vomit or diarrhea. States he is having trouble breathing, but only through his nose. He is having irritation at the urethral meatus from the Negron catheter. Creatinine 4.0, sodium 135 Continues on Lasix drip I/O daily over the last several days May 05: -97May 04: -2499May 03: -152 Total -5000 Patient is 5 L fluid negative since admission. ECHO TTE performed yesterday: Left ventricle is moderately dilated. Ejection fraction is 25%. There is severe global hypo to akinesis Moderately enlarged and hypocontractile right ventricle Both atria are enlarged No significant structural valvular abnormalities are identified Estimated right ventricular systolic pressure is 55 mmHg There has been no interval change compared to an echocardiogram from October 2023 Exam Narrative Exam Narrative: Patient is alert and oriented x 3 and in no acute distress. Examined laying in bed. Exam is essentially unchanged HEENT: Neck supple, MM pink and moist, conjunctiva non-injected, sclera non-icteric, Pupils equal and reactive to light symmetrically, no JVD, no A waves. No thyromegaly. No carotid bruit CHEST: Bilaterally symmetrical with inspiration and expiration. No use of accessory muscles of respiration. No nasal flaring. RESP: Clear to auscultation bilaterally, no rales, rhonchi or wheeze, no pleural friction rub, no post-tussive crackles or apical rales. COR: RRR without murmur, normal S1, S2, no rub or gallop ABDOMEN: Obese, soft, non tender diffusely, normally active bowel sounds diffusely, No hepatosplenomegaly, No abdominal bruit, no masses, no tenderness on deep abdominal palpation. G/U: deferred Rectal: deferred MUSCULOSKELETAL: Bilaterally symmetrical, no muscle belly tenderness or mass DERMIS: Skin warm and dry, no ulcers or rashes, EXTREMITIES: Bilateral BKA NEUROLOGICAL: Cranial nerves intact II-XII no focal deficits noted. . Objective Last Vital Signs Temp 36.5 C 05/05/24 11:41 Pulse 86 05/05/24 11:41 Resp 19 05/05/24 11:41 BP 143/97 H 05/05/24 11:41 Pulse Ox 98 05/05/24 11:41 Laboratory Results - last 24 hr 05/05/24 06:40 WBC 8.60 RBC 3.76 L Hgb 12.7 L Hct 39.2 L MCV 104 H MCH 33.8 H MCHC 32.4 RDW 14.6 H Plt Count 173 MPV 10.6 Immature Gran % 0.3 Neutrophils % 76.1 Lymphocytes % 10.0 Monocytes % 9.3 Eosinophils % 3.8 Basophils % 0.5 Nucleated RBC % 0.0 Absolute Neutrophils 6.54 Absolute Lymphocytes 0.86 L Absolute Monocytes 0.80 Absolute Eosinophils 0.33 Absolute Basophils 0.04 Sodium 135 L Potassium 4.1 Chloride 92 L Carbon Dioxide 35.5 H Anion Gap 7.5 BUN 103 H* Creatinine 4.0 H* Est GFR (CKD-EPI 2020) 16.95 Glucose 110 H Calcium 8.9 Magnesium 2.2 PAWSS Have you Been Recently Intoxicated or Drunk Within the Last 30 days?: Yes Have you Ever Experienced Previous Episodes of Alcohol Withdrawal?: No Have you ever Experienced Withdrawal Seizures?: No Have you ever Experienced Delirium Tremens(DT)s?: No Have you ever undergone Alcohol Rehabilitation Treatment (i.e, inpt ot outpatient treatment programs)?: No Have you ever Experienced Blackouts?: No Have you ever Combined Alcohol with other Downers within the last 90 days?: No Have you ever Combined Alcohol with any other Substance of Abuse during the last 90 days?: No Positive Blood Alcohol level on Presentation? [PCS.BAL]: No Evidence of Increased Autonomic Activity (i.e. HR>120, tremor, sweating, agitation, nausea)?: No Result: 1 Time Spent with Patient Time Spent with Patient: 25-34 minutes Time was spent: preparing to see the patient(eg.review tests), obtaining and/or reviewing separately otained hiistory, ordering medications,tests, procedures, referring, communicating with other health farm or ranch animal caretaker, indepentently interpreting results, counseling the patient and care coordination
[2024-05-05] MEDS: Enoxaparin 40 MG/0.4 ML SYR SC (14:48)
[2024-05-05] MEDS: Insulin Glargine 300 UNITS/3 ML PEN 36 UNITS SC (21:12)
[2024-05-05] MEDS: Normal Saline Flush 10 ML SYR IVP (21:14)
[2024-05-05] MEDS: Melatonin 3 MG TAB 6 MG PO (23:40)
[2024-05-06] MEDS: Lidocaine 2% Jelly 11 ML SYR UR ×4 (01:38→21:00)
[2024-05-06 02:34] VITALS: BP 129/89; PULSE 86; RESP 19; TEMP 36; O2SAT 96
[2024-05-06 06:56] LABS: Anion Gap 7.9 mmol/L (3-11); CO2 35.1 mmol/L (21.0-32.0); Calcium 8.9 mg/dL (8.5-10.1); Chloride 92 mmol/L (98-107); Estimated GFR 15.54 (mL/min/1.73m2); Glucose 123 mg/dL (74-106); Magnesium 2.1 mg/dL (1.8-2.4); Sodium 135 mmol/L (136-145)
[2024-05-06 07:01] LABS: BUN 102 mg/dL (7-18); CREATININE 4.3 mg/dL (0.70-1.30)
[2024-05-06] MEDS: Tiotropium Bromide-Respimat 10 PUFF INH 2 PUFF IH (07:56)
[2024-05-06 08:07] VITALS: BP 143/85; PULSE 85; RESP 19; TEMP 36.8; O2SAT 93
[2024-05-06] MEDS: Fluticasone NASAL SPRAY 16 GM BTL NS (08:16)
[2024-05-06] MEDS: Insulin Aspart 300 UNITS/3 ML PEN SC ×5 (08:17→17:00)
[2024-05-06] MEDS: Nystatin POWDER 15 GM JAR TP ×3 (08:17→20:46)
[2024-05-06] MEDS: Potassium Chloride 20 MEQ TABCR PO ×3 (08:18→20:46)
[2024-05-06] MEDS: Cholecalciferol (Vitamin D3) 1,000 UNIT TAB 1000 UNITS PO (08:18)
[2024-05-06] MEDS: Pantoprazole 40 MG TABCR PO (08:18)
[2024-05-06] MEDS: Clopidogrel 75 MG TAB PO (08:18)
[2024-05-06] MEDS: Cyanocobalamin 500 MCG TAB 1000 MCG PO (08:18)
[2024-05-06] MEDS: Ascorbic Acid 500 MG TAB PO (08:18)
[2024-05-06] MEDS: Sodium Bicarbonate 650 MG TAB PO ×2 (08:18→20:46)
[2024-05-06] MEDS: Cetirizine 10 MG TAB PO (08:18)
[2024-05-06] MEDS: Aspirin E.C. 81 MG TABEC PO (08:18)
[2024-05-06] MEDS: Atorvastatin 10 MG TAB PO (08:18)
[2024-05-06] MEDS: Carvedilol 12.5 MG TAB PO ×2 (08:19→20:46)
--- NOTE | 2024-05-06 08:20 | PGE_ITS ---
Date of Service Date of service: 05/06/24 Time of Service: 08:20 Assessment and Plan Assessment and plan (1) Acute systolic (congestive) heart failure: Status: Acute Assessment and plan: Echocardiogram noted with LVEF approximately 25% and global hypokinesis noted. Continue IV diuresis with furosemide, today, patient's is 7.6 L negative, admission to date Follow I&O. may soon be ready to have quigley dc'd (2) Chronic systolic CHF (congestive heart failure): Status: Acute Assessment and plan: Secondary to ischemic cardiomyopathy He is on beta-adithya, SGLT2i. Not on HALI/ARB/ARNI. Discussed with pharmacy, spironolactone not effective at this level of renal per formance. Spironolactone was discontinued. (3) Hypertension associated with diabetes: Status: Acute Assessment and plan: continue outpatient medications, additional diureiss. (4) Diabetes mellitus with complication in adult patient: Status: Chronic Assessment and plan: Last A1c 8.4 in December, will repeat with AM labs. Continue outpatient basal/bolus insulin Also on SLGT2i, but this won't help glucose with his GFR. At current renal performance, the SGLT 2 inhibitor is not effective He could consider GLP-1, would likely benefit with his CAD, but defer to outpatient. (5) CKD (chronic kidney disease) stage 4, GFR 15-29 ml/min: Status: Acute Assessment and plan: GFR slightly above his recents, needs diuresis. Monitor daily laboratories including BMP and magnesium Electrolytes ok. Creatinine up to 4.3 today, continue to monitor (6) Anemia in CKD (chronic kidney disease): Status: Acute Assessment and plan: Likely related to CKD Vitamin B12 level greater than 2000 (7) Elevated troponin: Assessment and plan: Elevated but not dynamic, due to CKD and chornic heart disease. Not c/w ACS (8) DVT prophylaxis: Status: Acute Assessment and plan: enoxaparin, pharmacy can adjust dose based on BMI and CKD if needed Subjective Subjective Interval history since last seen: Clinical course reviewed including notes, orders, labs, vitals, meds, imaging, and cultures. Care is discussed with primary nurse. Patient continues to complain of difficulty breathing through his nose. He does not want to be treated with oral antihistamines or intranasal steroids. These were offered to him and he declined. He has been having some feeling of fullness in his lower pelvic area likely re lated to the Quigley catheter. The balloon was deflated and then reinserted started and inflated again but he continues to have some discomfort. Discussed with patiluzma re change quigley to condom cath, or use collection jug. He desires to keep quiglye cath in place. Patient denies any chills fever nausea vomit or diarrhea. VSS patient is afebrile States he is having trouble breathing, but only through his nose. He is having continued irritation at the urethral meatus from the Quigley catheter. Lidocaine jelly helps, now asking for more frequent application Creatinine 4.3, sodium 135, Mg++2.1, K+4.0 Continues on Lasix drip I/O daily over the last several days May 06: -April 19: -3124May 04: -2499May 03: -1525 Total -7600 admission to date Patient is 7.6 L fluid negative since admission. ECHO TTE performed May 04, results: Left ventricle is moderately dilated. Ejection fraction is 25%. There is severe global hypo to akinesis Moderately enlarged and hypocontractile right ventricle Both atria are enlarged No significant structural valvular abnormalities are identified Estimated right ventricular systolic pressure is 55 mmHg There has been no interval change compared to an echocardiogram from October 2023 Exam Narrative Exam Narrative: Patient is alert and oriented x 3 and in no acute distress. Examined laying in bed. Exam is essentially unchanged HEENT: Neck supple, MM pink and moist, conjunctiva non-injected, sclera non- icteric, Pupils equal and reactive to light symmetrically, no JVD, no A waves. No thyromegaly. No carotid bruit CHEST: Bilaterally symmetrical with inspiration and expiration. No use of accessory muscles of respiration. No nasal flaring. RESP: Clear to auscultation bilaterally, no rales, rhonchi or wheeze, no pleural friction rub, no post-tussive crackles or apical rales. COR: RRR without murmur, normal S1, S2, no rub or gallop ABDOMEN: Obese, soft, non tender diffusely, normally active bowel sounds diffusely, No hepatosplenomegaly, No abdominal bruit, no masses, no tenderness on deep abdominal palpation. G/U: deferred Rectal: deferred MUSCULOSKELETAL: Bilaterally symmetrical, no muscle belly tenderness or mass DERMIS: Skin warm and dry, no ulcers or rashes, EXTREMITIES: Bilateral BKA NEUROLOGICAL: Cranial nerves intact II-XII no focal deficits noted. . Objective Last Vital Signs Temp 36.8 C 05/06/24 08:07 Pulse 85 05/06/24 08:07 Resp 19 05/06/24 08:07 BP 143/85 H 05/06/24 08:07 Pulse Ox 93 05/06/24 08:07 Laboratory Results - last 24 hr 05/05/24 05/06/24 06:40 06:23 WBC 8.60 RBC 3.76 L Hgb 12.7 L Hct 39.2 L MCV 104 H MCH 33.8 H MCHC 32.4 RDW 14.6 H Plt Count 173 MPV 10.6 Immature Gran % 0.3 Neutrophils % 76.1 Lymphocytes % 10.0 Monocytes % 9.3 Eosinophils % 3.8 Basophils % 0.5 Nucleated RBC % 0.0 Absolute Neutrophils 6.54 Absolute Lymphocytes 0.86 L Absolute Monocytes 0.80 Absolute Eosinophils 0.33 Absolute Basophils 0.04 Sodium 135 L Potassium 4.0 Chloride 92 L Carbon Dioxide 35.1 H Anion Gap 7.9 BUN 102 H* Creatinine 4.3 H* Est GFR (CKD-EPI 2020) 15.54 Glucose 123 H Calcium 8.9 Magnesium 2.1 PAWSS Have you Been Recently Intoxicated or Drunk Within the Last 30 days?: Yes Have you Ever Experienced Previous Episodes of Alcohol Withdrawal?: No Have you ever Experienced Withdrawal Seizures?: No Have you ever Experienced Delirium Tremens(DT)s?: No Have you ever undergone Alcohol Rehabilitation Treatment (i.e, inpt ot outpatient treatment programs)?: No Have you ever Experienced Blackouts?: No Have you ever Combined Alcohol with other Downers within the last 90 days?: No Have you ever Combined Alcohol with any other Substance of Abuse during the last 90 days?: No Positive Blood Alcohol level on Presentation? [PCS.BAL]: No Evidence of Increased Autonomic Activity (i.e. HR>120, tremor, sweating, agitation, nausea)?: No Result: 1 Time Spent with Patient Time Spent with Patient: 35-49 minutes Time was spent: preparing to see the patient(eg.review tests), obtaining and/or reviewing separately [facility] hiistory, ordering medications,tests, procedures, referring, communicating with other health direct care professional, indepentently interpreting results, counseling the patient and care coordination
[2024-05-06 08:27] LABS: Abs Immature Grans 0.03 10^3/uL (0.0-0.06); Absolute Basophil Count 0.04 10^3/uL (0.0-0.2); Absolute Eosinophil Count 0.34 10^3/uL (0.0-0.7); Absolute Lymphocyte Count 0.87 10^3/uL (1.2-3.4); Absolute Monocyte Count 0.85 10^3/uL (0.1-0.8); Absolute Neutrophil Count 6.69 10^3/uL (1.2-6.7); Basophils % 0.5 %; Eosinophils % 3.9 %; HGB 12.6 g/dL (13.5-17.5); Immature Grans % 0.3 %; Lymphocytes % 9.9 %; MCH 33.4 pg (27.0-33.0); MCHC 32.3 % (32.0-36.0); MCV 103 fL (80-95); MPV 10.5 fL (8.0-11.0); Monocytes % 9.6 %; Neutrophils % 75.8 %; Platelet Count 189 10^3/uL (130-400); RBC 3.77 10^6/uL (4.36-5.78); RDW 14.5 % (11.8-14.1); RDW-SD 54.9 fL; WBC 8.82 10^3/uL (4.4-10.8)
[2024-05-06 11:30] VITALS: BP 138/80; PULSE 87; RESP 19; TEMP 36.8; O2SAT 88
[2024-05-06] MEDS: Patch Removal 1 EACH TP (12:07)
[2024-05-06] MEDS: Enoxaparin 40 MG/0.4 ML SYR SC (14:14)
[2024-05-06 15:17] VITALS: BP 130/115; PULSE 90; RESP 18; TEMP 36.3; O2SAT 94
[2024-05-06 20:00] VITALS: BP 136/94; PULSE 90; RESP 20; TEMP 36.6; O2SAT 94
[2024-05-06] MEDS: Insulin Glargine 300 UNITS/3 ML PEN 36 UNITS SC (20:47)
[2024-05-06] MEDS: Lidocaine 5% Patch 1 PATCH TP (21:00)
[2024-05-06] MEDS: Melatonin 3 MG TAB 6 MG PO (21:07)
[2024-05-07 03:04] VITALS: BP 126/96; PULSE 86; RESP 19; TEMP 36.4; O2SAT 94
[2024-05-07 06:59] LABS: Anion Gap 5.8 mmol/L (3-11); CO2 35.2 mmol/L (21.0-32.0); Calcium 8.8 mg/dL (8.5-10.1); Chloride 94 mmol/L (98-107); Estimated GFR 15.54 (mL/min/1.73m2); Glucose 81 mg/dL (74-106); Sodium 135 mmol/L (136-145)
[2024-05-07 07:04] LABS: BUN 103 mg/dL (7-18); CREATININE 4.3 mg/dL (0.70-1.30)
[2024-05-07] MEDS: Tiotropium Bromide-Respimat 10 PUFF INH 2 PUFF IH (07:43)
[2024-05-07 07:45] VITALS: BP 110/77; PULSE 86; RESP 18; TEMP 36.5; O2SAT 97
[2024-05-07] MEDS: Pantoprazole 40 MG TABCR PO (08:27)
[2024-05-07] MEDS: Sodium Bicarbonate 650 MG TAB PO (09:22)
[2024-05-07] MEDS: Ascorbic Acid 500 MG TAB PO (09:22)
[2024-05-07] MEDS: Clopidogrel 75 MG TAB PO (09:22)
[2024-05-07] MEDS: Cetirizine 10 MG TAB PO (09:22)
[2024-05-07] MEDS: Carvedilol 12.5 MG TAB PO (09:22)
[2024-05-07] MEDS: Atorvastatin 10 MG TAB PO (09:22)
[2024-05-07] MEDS: Cholecalciferol (Vitamin D3) 1,000 UNIT TAB 1000 UNITS PO (09:22)
[2024-05-07] MEDS: Aspirin E.C. 81 MG TABEC PO (09:23)
[2024-05-07] MEDS: Cyanocobalamin 500 MCG TAB 1000 MCG PO (09:23)
[2024-05-07] MEDS: Fluticasone NASAL SPRAY 16 GM BTL NS (09:23)
[2024-05-07] MEDS: Potassium Chloride 20 MEQ TABCR PO ×2 (09:23→13:53)
[2024-05-07] MEDS: Nystatin POWDER 15 GM JAR TP ×2 (09:24→13:57)
--- NOTE | 2024-05-07 09:45 | PDOC.CMPRO ---
Date of service: 05/07/24 Time of Service: 09:45 Care Management Progress Note Discharge Potential Discharge Needs: PCP F/U Appt Anticipated Barriers to Discharge: None Identified Patient/Family Education Needs: Review discharge instructions, discuss Ask Me Three Transportation: [facility] Plan: Anticipate Leroy will be discharged home, possibly with new home health services, when medically cleared by provider. He will follow up with his PCP and plan of care and transport vis [facility] coordinated by CM. CM will follow and continue to assess for discharge needs. SDOH(Care Management) Screening Will the Patient Participate in the Screening?: Yes Do you worry about having a steady place to live?: no In the past 12 months, have you had to go without electric, gas, oil or water in your home?: no Have you or anyone in your house had to go without enough food to eat?: no Has lack of transportation kept you from medical appointments or from doing things needed for daily living?: no Has anyone in your support network made you feel unsafe for any reason?: no
[2024-05-07] MEDS: Lidocaine Patch Removal 1 EACH TP (10:10)
[2024-05-07] MEDS: ALBUMIN HUMAN 25 GM/100 ML BTL IVPB (10:38)
--- NOTE | 2024-05-07 11:32 | NUR.NOTE ---
Nursing Note: RN started new peripheral line in right forearm to administer albumin infusion. IV line flushed and blood return with no issues. Albumin infusion started with no issues or pain reported and RN went to morning meeting. Floor RN reported to nurse that IV infiltrated. RN went into patient room and infiltration was evident. RN stopped infusion but albumin was finished infusing. Patient reported that the IV was painful and burning a few minutes after RN left room and he never reported it. RN followed hospital policy and tried to aspirate fluid. Minimal fluid was aspirated. Line was drawn around infiltration site, compress/HALI wrap was applied, and arm is elevated in correspondence to policy and procedure. RN continuing to monitor and education done. No other issues noted.
[2024-05-07 11:43] VITALS: BP 118/80; PULSE 89; RESP 16; TEMP 36.5; O2SAT 95
--- NOTE | 2024-05-07 12:14 | CMDISCH_ITS ---
Date of service: 05/07/24 Time of Service: 12:14 LACE Index Scoring Tool Questions: Length of Stay (in days): 4 - 6 Was the patient admitted via the E.D.?: Yes Comorbidities: Diabetes w/o Complication, Congestive Heart Failure, Chronic Pulmonary Disease and Liver or Renal Disease E.D. Visits: 2 Answers: Total Score: 14 Risk of Readmission: High Risk Care Management Discharge Plan Reason for Hospitalization: CHF Discharge Plan: Leroy will be discharged home with no new services. He will follow up with his community providers and plan of care and transport via [facility] coordinated by CM. Patient/Family Education Needs: Review of discharge instructions, limitations, follow up plan, discuss Ask Me Three SDOH Health Related Social Needs: Health related social needs problems related to housin g/economic circumstances (Z59.89), feeling lonely/isolated (Z60.8)
[2024-05-07] MEDS: Furosemide 40 MG TAB PO ×2 (12:26→15:21)
[2024-05-07] MEDS: Insulin Aspart 300 UNITS/3 ML PEN SC (12:36)
[2024-05-07] MEDS: Enoxaparin 30 MG/0.3 ML SYR SC (13:53)
[2024-05-07] MEDS: Lidocaine 2% Jelly 11 ML SYR UR (13:54)
--- NOTE | 2024-05-07 14:42 | W.NUTRFU ---
Date of service: 05/07/24 Time of Service: 14:42 Nutrition Note NOTE: Received consult request regarding diabetes education and mgt. PT is 54yo male known to me from prior admissions. Hx of DMII with insulin, CKD4, CHF, double lower ext amputation. Visited with Mr Rojelio briefly as he anticipates discharge soon - looking forward to going home. His fingersticks before meals have [id number] to 210's mostly with FPG 81,123,110 the last 3 days. pt feels hypoglycemia sx below 100 and states he uses peanut butter usually to get it up. Also relates that his glucose behaves differently at home when he is eating his own menu. Educated that with symptoms of hypo best to use something without the fat in it like peanut butter does as it will delay his increase in glucose - suggested 4 glucose tabs if he has or some juice or other simpler sugar. Pt also educated that he may consider taking his basal insulin in AM rather than HS to see if it helps his glucose in the morning if it continues to be on the lower side. PT currently has A1C of 7.5 which is at goal, considering the extent of other medical concerns he has been managing. He is aware I am available for outpatient services in person or virtual if easier, declines additional education at this time. Time Spent in Nutritional Counseling and Treatment: 10 minutes
--- NOTE | 2024-05-07 14:49 | IN_ITS ---
PT Notes Visit Reasons: CHF, Reduced LVEF Physical Therapy Initial Evaluation Date: 05-07-2024 Referring Doctor: PT Orders: PT CONSULT: PT evaluation and treatment due to limited ability Precautions: Standard, Patient Profile/Admitting Diagnosis: Patient is a 54-year-old male presented to the emergency department from home after episode of slumping over while on the toilet. He was unable to rise from the toilet therefore called EMS. In the ED he reported 1 week of increased dyspnea on exertion. Patient diagnosed with acute systolic congestive heart failure ,acute hypokalemia,, anemia in CKD. He was treated with diuretics and admitted to the MedSurg unit for further medical management. PT consult placed PMHX: Anemia in CKD (chronic kidney disease) (Acute) Glucosuria (Acute) Proteinuria (Acute) Acute systolic (congestive) heart failure (Acute) Acute hypokalemia (Acute) Edema of abdominal wall (Acute) Edema of right lower extremity (Chronic) Fluctuating 2' CHF, fluid overload/diuresisEdema of left lower extremity (Chronic) Fluctuating 2' CHF, fluid overload/diuresisAt risk for fluid and electrolyte imbalance (Acute) Long Hx 2' med changes, fluid overload.At risk for medication error (Acute) 2' ED, Hosp, Specialists, H&R, HH .. 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 4-wheel, for hill, grass & dog.. getting to basement shop and garage and acreage.. HCM and QOL .. and working for [employer].CKD (chronic kidney disease) stage 4, GFR 15-29 ml/min (Acute) GFR @ 19-20 with elevated A1C, but @ risk of hypoglycemia..CHANEL (acute kidney injury) (Acute) Improved with diuresis and hydration @ home, but high risk for repeat episodesIron deficiency (Acute) Low serum albumin (Chronic) Protein WNL per 02/2022 labsPulmonary hypertension (Acute) 12/29/21. [id number]. Noted during Cardiac cath, [facility]. NYHA Class IVIschemic cardiomyopathy (Chronic) w/ (+) stress test and PCI/Stenting, 12/29/21Dermatitis, unspecified (Acute ~11/2021) 12/07/21 DermatologyCoronary artery disease (Chronic) w/ dilated cardiomyopathy and (+) stress test ++> PCI/Stenting, 12/29/21Elevated brain natriuretic peptide (BNP) level (Acute) thought to be near baseline, but unclear HxHyperglycemia due to diabetes mellitus (Acute) Chronic posttraumatic stress disorder (Acute) History of anemia (Chronic) History of posttraumatic stress disorder (PTSD) (Acute) Long Hx, Restarted with counselor, Madison Harris.Adjustment reaction to chronic stress (Acute) Social isolation (Acute) Amputee, lower limb (Acute) Double Amputee, 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 Working with [employer] re: prosthetics.. Rt, November 2020. Lft, 2017 (?)COPD (chronic obstructive pulmonary disease) (Chronic) Hx smoker (~10pkyr), PFTs (04/17/21).Disability examination (Acute) PFTs, 04/2021 for Disability 2' COPD.GERD (gastroesophageal reflux disease) (Chronic) PPIHousing or economic problem (Acute) Diabetes mellitus with complication in adult patient (Chronic) Type 2 diabetes mellitus with diabetic polyneuropathy (Acute) Allergic rhinitis due to allergen (Acute) Nasal turbinate hypertrophy (Acute) Other chronic sinusitis (Acute) Deviated nasal septum (Acute) Seasonal allergies (Acute) Corneal opacification (Acute) OSProliferative retinopathy of both eyes (Acute) Full PRP ODICD (implantable cardioverter-defibrillator) in place (Acute) ICD, single lead, [employer] Visia 04/27/2018 [place], [place] ([place]) Pt report based on past ENT 06/02/[address] Haque - surgical correction plannedVitamin D deficiency (Acute) Secondary hyperparathyroidism (Acute) Chronic systolic CHF (congestive heart failure) (Acute) EF 20-25% per Jul 2023 Echo ([facility])Persistent proteinuria associated with type 2 diabetes mellitus (Acute) Hypertension associated with diabetes (Acute) Medical History SARS-CoV-2 positive (~04/14/22) Dehydration Hypercalcemia (~02/21/22) Elevated troponin Positive cardiac stress test 2021 .. Cath, with stent placement + 12/29/21.Edema of abdomen Neck pain acute .. due to sleeping on sofa?? coughing?Decreased range of motion (ROM) of right knee Flexion ok; Extension is difficult .. Continues to work with PTPsoriasis Carpal tunnel syndrome of left wrist Cubital bursitis of right elbow Diabetic foot ulcer associated with type 2 diabetes mellitus RESOLVED with amputation. 09/30/20-R heel w/cellulitis-Dr Kevin,DPM 10/16/20 Debridement by Podiatry 10/30/20 [facility] [place] [facility] - RIGHT Heel Ulcer - cont close wound care by PodiatryHx: recurrent pneumonia walking pneumonia most vines x 3 yearsCervical neuropathy Tendonitis of long head of biceps brachii of right shoulder Bursitis of right shoulder Right shoulder pain Acute on chronic issue: now with elbow and hand pain (ulnar), with tingling.Finger pain, left Could this be gout? No injury. Trial Naproxen.Nasal polyps Erectile dysfunction Testicular cancer CKD stage 3 secondary to diabetes CKD, October 2022! 08/2019 Cr 1.74 ... Elevated in 2020 2' Inf/ABx/HyperGly .. [ ] re-check 03/2021! Surgical History S/P cardiac catheterization 12/29/21 [facility] (Dr. Jerry Ramírez). PCI (via R radial artery) of mid-LAD. Balloon angioplasty and lithotripsy.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History of amputation of left lower extremity History of amputation of great toe RightHistory of cardiac defibrillator placement History of cataract removal with insertion of prosthetic lens (~03/02/18) RightHistory of gastric bypass (~07/01/14) History of cystoscopy (~12/25/13) History of tonsillectomy (~1979) History of orchiectomy, unilateral (~06/1999) Right Social History/Home Situation: Patient resides in an apartment. He is wheelchair-bound. He is independent with all transfers cooking and ADL management. He reports he has grab bars near his toilet which is low/18 inch height. He reports he sleeps on his couch. He reports he is independent with prosthetic management. [facility] Patient utilizes suction suspension system bilaterally. Equipment Owned/DME: Motorized wheelchair, manual wheelchair Subjective: Patient reports he is going home today. Objective: [] General Observation: Alert male seated upright in bed Mental Status: Alert and oriented x 3 Pain: Denies pain ROM: [] Right Upper Extremity: WNL Left Upper Extremity: WNL Right Lower Extremity: hip flexion 95 degrees ( limited by body habitus, hip extension neutral, knee 0-100 ankle NA d/t BKA Left Lower Extremity: Hip flexion 95 degrees ( limited by body habitus, hip extension -8 degrees, knee 8-100, ankle NT d/t BKA Strength: [] Right Upper Extremity: 5/5 Left Upper Extremity: 5/5 Right Lower Extremity: hip extension, 3-/5, hip flexion 3+/5, hip abd 3+/5, knee 4/5, ankle NA d/t BKA Left Lower Extremity: hip extension3-/5, hip flexion 3+/5, hip abduction 3+/5 knee 4/5 ankle NT d/t BKA Sensation: Bed Mobility/Transfers: Supine to sit Independent Sit to stand Modified Independent Stand to sit modified independent Bed to chair modified independent stand pivot with B prosthetics Prosthetics: Independent donning and doffing bilateral suction suspension Wheelchair management: Independent bilateral upper extremities and lower extremities/prosthetics 50 feet. Gait: NA Balance: Static Sitting: Normal Dynamic Sitting: Good Static Standing: Fair+ Dynamic Standing: Fair Special Tests: [] Mobility Limitations Standardized Measure [] [facility] AM-PAC 6 clicks Basic Mobility Inpatient Short Form: [] Raw Score: 17 CMS Score: 50.57% Informed Consent/Education: Patient instructed in purpose of PT consult. Assessment: Patient is 54-year-old male presenting with past medical history bilateral BKA with new admitting diagnosis of CHF. Patient able to demonstrate independent donning and doffing of prosthetics and perform bed to chair transfers stand pivot as he does at home without assistance. Patient's right prosthetic neoprene sleeve noted with chair and it patient is aware and will be calling [employer] for repair/replacement. Patient is non-ambulatory at baseline and utilizes a power wheelchair as primary mode of locomotion. Patient is not dependent with manual wheelchair utilizing bilateral upper extremities and lower extremities to assist with locomotion/propulsion. Patient demonstrates impaired functional activity tolerance requiring rest periods during donning and doffing of prosthetics and clothing however reports he does have FUNG at baseline. Discussed with patient possibility of home PT to further assess modifications to his home . Patient is assessed as a moderate complexity based on the following: History: 54-year-old male with impairment level findings, functional limitations, and past medical history as indicated above Examination: Demonstrable impairment in strength, balance, and mobility level with underlying impairments and functional limitations as documented above Presentation: Stable Decision Making: Moderate Goals: N/A. Plan of Care/Treatment Plan: N/A. DISCHARGE RECOMMENDATIONS: Home PT to assess need for modifications to improve mobility TREATMENT CODE/TIME: 08667 x 20 minutes x 1 unit, 48358 x 19 minutes x 1 unit/[id number] Thank you for the opportunity to participate in the care of this patient. Please sign an return this page within 30 days if you agree with the above POC. Thank you! Physician Signature Date [facility]
--- NOTE | 2024-05-07 16:11 | W.PM.DS.N ---
Date of service: 05/07/24 Time of Service: 16:12 DS: Diagnosis Discharge Diagnosis (1) Acute systolic (congestive) heart failure: Status: Acute Asessment and Plan: Stable at the time of discharge Patient with global cardiac hypokinesis and ejection fraction of approximately 25% (2) Chronic systolic CHF (congestive heart failure): Status: Acute Asessment and Plan: Stable at the time of discharge Changing patient's diuretics to Lasix 40 mg p.o. twice daily at the time of discharge. Stopping turosemide Spironolactone not effective at the patient's current renal function so this was stopped. (3) Hypertension associated with diabetes: Status: Acute Asessment and Plan: Stable at the time of discharge (4) Diabetes mellitus with complication in adult patient: Status: Chronic Asessment and Plan: Stable at time of discharge will continue current diabetic medications (5) CKD (chronic kidney disease) stage 4, GFR 15-29 ml/min: Status: Acute Asessment and Plan: Patient's creatinine is higher than his normal resting creatinine He has been aggressively diuresed. He is planning to follow-up with his primary care doctor on Tuesday Laboratories will need to be obtained at that time to follow his potassium, magnesium and creatinine. His creatinine had reached a karly of 4.0 and now was bumped up to 4.3 worse remained for 48 hours. Albumin was given today and Lasix drip was stopped and changed to 40 mg p.o. twice daily (6) Anemia in CKD (chronic kidney disease): Status: Acute Asessment and Plan: Stable no new interventions at this time If continues to worsen, the patient may need an erythropoietin level checked He should be following with a hydroelectric operator as it is likely he will sometime need intervention (7) DVT prophylaxis: Status: Acute Asessment and Plan: Resolved at time of discharge Discharge Plan Disposition Patient Disposition: Home Condition: Good Discharge Details Reason For Visit: CHF, Reduced LVEF Admit Date/Time: 05/03/24 11:47 Admit Provider: Koby Cuello Attending Provider: Koby Cuello Primary Care Provider: Candice Perez [place] [facility] Course Hospital Course: Patient was admitted with significant edema. He could not fit his stumps into his prostheses due to swelling. He had shortness of breath and acute dyspnea. He was aggressively diuresed. He had electrolyte abnormalities associated with the Lasix drip. Throughout the course of his hospitalization, he exhibited no signs of infection. He did have urethral meatus irritation from the Negron which was treated with local lidocaine jelly to good effect. Negron was removed at the time of discharge. Patient was able to void post removal of the Negron. On the date of discharge, the patient's laboratories included C serum sodium 135, potassium 4.0, BUN 103, creatinine 4.3. The patient's creatinine karly was 4.0. He was admitted with a creatinine of 4.5. Today, on any date of discharge, patient received a dose of 25 g of albumin due to presumed intravascular depletion of volume. I/O daily over the last several days while on Lasix drip: May 07: May 06: May 05: May 04: -[id number] 03: 1525 Total -11,650 admission to date Patient is 11.65 L fluid negative since admission. ECHO TTE performed May 04, results: Left ventricle is moderately dilated. Ejection fraction is 25%. There is severe global hypo to akinesis Moderately enlarged and hypocontractile right ventricle Both atria are enlarged No significant structural valvular abnormalities are identified Estimated right ventricular systolic pressure is 55 mmHg There has been no interval change compared to an echocardiogram from October 2023 Home Meds and New Rx's Prescriptions: New furosemide 40 mg Tablet 40 mg PO BID@0830,1600 Qty: 60 0RF Continued (DME) Left Outer Sleeve See Rx Instructions .Route .MEDSUPPLY Qty: 1 0RF Rx Instructions: As directed (DME) Right prosthetic socket See Rx Instructions .Route .MEDSUPPLY Qty: 1 0RF Rx Instructions: As directed (DME) glucometer WITH MATCHING TEST STRIPS See Rx Instructions .Route .MEDSUPPLY Qty: 1 0RF Rx Instructions: Using TID until CGM available, then as back-up (DME) lancets Misc See Rx Instructions .ROUTE .MEDSUPPLY Qty: 300 3RF Rx Instructions: To check blood glucose three times daily. On insulin. Dispense covered brand. (DME) Sleeve, Left BKA See Rx Instructions .Route .MEDSUPPLY Qty: 1 0RF Rx Instructions: Per measure & fit by [employer] (DME) Sleeve, Right BKA See Rx Instructions .Route .MEDSUPPLY Qty: 1 0RF Rx Instructions: Per measure & fit by [employer] (DME) Dexcom G7 Band Tumbler Misc See Rx Instructions .Route Qty: 1 3RF Rx Instructions: As directed to manage DM, E11.8 - 36 Sensors/year. A1C < 7.5 (DME) BKA Prosthetics, B/L See Rx Instructions .Route .MEDSUPPLY Qty: 2 1RF Rx Instructions: Measurement/fitting TBD by [employer] unless out-sourced (DME) Amputation Compression Sleeve See Rx Instructions .Route .MEDSUPPLY Qty: 1 0RF Rx Instructions: Please provide and fit a compression sleeve to the left BKA stump for appropriate prosthesis wear. (DME) fore arm cuff crutches See Rx Instructions .Route .MEDSUPPLY Qty: 1 0RF Rx Instructions: dispense 1 pair acetaminophen 325 mg tablet 650 mg PO Q4H PRN (Reason: fever or pain) Qty: 180 1RF azelastine 137 mcg (0.1 %) aerosol,spray See Rx Instructions intranasal BID Qty: 30 1RF Rx Instructions: 1-2 sprays intranasal twice a day; administer into each nostril (DME) FreeStyle Luis 2 [place] Misc See Rx Instructions .ROUTE .MEDSUPPLY Qty: 1 0RF Rx Instructions: As directed (DME) FreeStyle Luis 2 Sensor Kit See Rx Instructions .ROUTE .MEDSUPPLY Qty: 6 3RF Rx Instructions: As directed clobetasol 0.05 % spray,non-aerosol 1 applic topical BID 7 Days Qty: 59 1RF Rx Instructions: not to exceed 26 sprays per single application fluticasone propionate [Allergy Relief (fluticasone)] 50 mcg/actuation spray,suspension 1 spray intranasal DAILY Qty: 16 1RF Rx Instructions: administer into each nostril (DME) Contour Test Strips Strip See Rx Instructions .Route Qty: 100 2RF Rx Instructions: DX E11.9 Check BS TID use as back up if CGM fails. pantoprazole 40 mg tablet,delayed release (DR/EC) 40 mg PO DAILY Qty: 90 3RF Farxiga 5 mg tablet See Rx Instructions .ROUTE .COMPLEX Qty: 28 10RF Dose Instruction: TAKE 1 TABLET BY MOUTH DAILY FOR TYPE 2 DIABETES MELLITUS NOT AT GOAL, STAGE 3 CKD Rx Instructions: TAKE 1 TABLET BY MOUTH DAILY FOR TYPE 2 DIABETES MELLITUS NOT AT GOAL, STAGE 3 CKD ascorbic acid (vitamin C) 1,000 mg tablet 500 mg PO DAILY Qty: 90 3RF Rx Instructions: Doses exceeding 500mg daily will invalidate CGM sensor. 02/04/22 EO Spiriva Respimat 2.5 mcg/actuation mist See Rx Instructions .ROUTE .COMPLEX Qty: 4 3RF Dose Instruction: INHALE 2 PUFFS BY MOUTH DAILY Rx Instructions: INHALE 2 PUFFS BY MOUTH DAILY (DME) pen needle, diabetic [BD Ultra-Fine Mini Pen Needle] 31 gauge x 3/16 needle See Rx Instructions .Route Qty: 300 3RF Rx Instructions: As directed for injecting Lantus/humalog to maintain A1C < 7, DM E11.8 clopidogrel 75 mg tablet 75 mg PO DAILY Qty: 30 5RF Rx Instructions: take separately from reflux medication. sodium bicarbonate 650 mg tablet 650 mg PO BID cholecalciferol (vitamin D3) 25 mcg (1,000 unit) capsule 25 mcg PO DAILY Qty: 90 3RF cyanocobalamin (vitamin B-12) 1,000 mcg capsule 1,000 mcg PO DAILY Qty: 90 3RF atorvastatin 10 mg tablet 10 mg PO DAILY Qty: 90 3RF cetirizine 10 mg tablet 10 mg PO DAILY Qty: 90 3RF aspirin 81 mg tablet,delayed release (DR/EC) 81 mg PO DAILY Qty: 90 3RF carvedilol 12.5 mg tablet 12.5 mg PO BID Qty: 180 3RF Rx Instructions: must administer with a meal/food (DME) Dexcom G7 Sensor Device See Rx Instructions .Route Qty: 3 11RF Rx Instructions: For A1C < 7.5, DM E11.8 (36 per year) insulin glargine 100 unit/mL (3 mL) insulin pen 36 unit subcut QPM Qty: 15 3RF Rx Instructions: 01/27/24-pt reports this is what he's taking-LH insulin lispro [Humalog KwikPen Insulin] 100 unit/mL insulin pen 1 sliding scale dose subcut USEASDIRECTD MDD 50 units Qty: 15 3RF Rx Instructions: [facility] Endo - current correction of 1u:30mg/dl, starting at 130mg/dl per pt. 01/06/21 Dupixent Syringe 300 mg/2 mL syringe 300 mg SUBCUT Q2W indapamide 2.5 mg tablet 5 mg PO DAILY Discontinued spironolactone 25 mg tablet 25 mg PO DAILY Qty: 90 3RF torsemide 20 mg tablet See Rx Instructions PO DAILY PRN (Reason: Abdominal Edema) Qty: 180 1RF Rx Instructions: Add 40mg daily 2' abd edema (est 3 days, may need to extend)(call PCP q 3 days)(labs weekly) orally daily PRN; torsemide 100 mg tablet 100 mg PO DAILY Discharge Instructions Stand Alone Forms: Nursing Discharge Form Referrals: Candice Perez DO [Primary Care Provider] - (please see primary doctor within 6 days of discharge. Primary care doctor should perform CMP and Magenesium level at visit.) Activity:: may return to work no res Equipment/Supplies:: No Equipment Needed Diet:: Carb Counting Discharge Orders Discharge Orders: Discharge Order (Routine); Ordered 05/07/24 Ordered By: Chris Yuen DS: Summary Time Spent with Patient providing and/or coordinating discharge services: Greater than 30 minutes Status at Discharge Functional status at discharge: independent ambulation Overall status at discharge: patient is not back to baseline (renal function has declined, needs nephrology evaluation) Mental Status: mental status grossly normal Speech and Movement: speech and movement normal Mood: congruent mood Affect: normal affect Quality:SDOH Health Related Social Needs: Health related social needs housing instability, housed, with risk of homelessness(Z59.811) Exam Narrative Exam Narrative: Patient is alert and oriented x 3 and in no acute distress. Examined laying in bed. Exam is essentially unchanged. New today is the fact that the patient can slide his stumps into his receivers of his bilateral lower extremity prostheses. He only uses these to transfer. HEENT: Neck supple, MM pink and moist, conjunctiva non-injected, sclera non-icteric, Pupils equal and reactive to light symmetrically, no JVD, no A waves. No thyromegaly. No carotid bruit CHEST: Bilaterally symmetrical with inspiration and expiration. No use of accessory muscles of respiration. No nasal flaring. RESP: Clear to auscultation bilaterally, no rales, rhonchi or wheeze, no pleural friction rub, no post-tussive crackles or apical rales. COR: RRR without murmur, normal S1, S2, no rub or gallop ABDOMEN: Obese, soft, non tender diffusely, normally active bowel sounds diffusely, No hepatosplenomegaly, No abdominal bruit, no masses, no tenderness on deep abdominal palpation. G/U: deferred Rectal: deferred MUSCULOSKELETAL: Bilaterally symmetrical, no muscle belly tenderness or mass DERMIS: Skin warm and dry, no ulcers or rashes, EXTREMITIES: Bilateral BKA NEUROLOGICAL: Cranial nerves intact II-XII no focal deficits noted. . Psych Mental Status: mental status grossly normal Speech and Movement: speech and movement normal Mood: congruent mood Affect: normal affect DS: Data Vitals/I&O Vitals and I&O: Vital Signs Temperature 36.5 C 05/07/24 11:43 Temperature Source Tympanic 05/07/24 11:43 Pulse 89 05/07/24 11:43 Pulse Rhythm Regular 05/03/24 17:01 Pulse Strength Normal 05/03/24 09:58 Pulse 87 05/03/24 16:30 Respiratory Rate 16 05/07/24 11:43 Respiratory Effort Normal, Non-Labored 05/03/24 17:01 Respiratory Depth Normal 05/03/24 17:01 Respiratory Pattern Normal 05/03/24 17:01 Blood Pressure 118/80 05/07/24 11:43 Blood Pressure Mean 104 05/03/24 16:30 Blood Pressure Position Sitting 05/03/24 09:58 Pulse Oximetry 95 05/07/24 11:43 Oxygen Delivery Method Room Air 05/07/24 11:43 Oxygen Flow Rate 0 05/07/24 11:43 Pain Level 0 05/07/24 11:43 Comment RN notified of bp 05/05/24 15:17 Intake & Output 05/06/24 05/07/24 05/07/24 23:59 11:59 23:59 Intake Total 600 / 1800 440 / 540 100 / 540 Output Total 1250 / 3050 2200 / 3820 1620 / 3820 Balance -650 / -1250 -1760 / -3280 -1520 / -3280 Weight 157.2 kg Intake: IV 100 / 210 200 / 300 100 / 300 Oral 500 / 1590 240 / 240 Output: Urine 1250 / 3050 2200 / 3820 1620 / 3820 Other: Urine Color Yellow Pale Yellow Urine Appearance Cloudy Clear Clear Urine Odor Normal Comment void in urinal Stool Size Large Copious Stool Characteristics Soft Soft Brown Formed Brown Data Completed and Pending Labs on day of discharge: Labs from last 24 hours 05/07/24 06:30 Sodium 135 L Potassium 4.0 Chloride 94 L Carbon Dioxide 35.2 H Anion Gap 5.8 BUN 103 H* Creatinine 4.3 H* Est GFR (CKD-EPI 2020) 15.54 Glucose 81 Calcium 8.8 Magnesium 2.0 PFSH All Active Problems (Updated 05/03/24 @ 15:33 by Koby Cuello) Anemia in CKD (chronic kidney disease) (Acute) Glucosuria (Acute) Proteinuria (Acute) Acute systolic (congestive) heart failure (Acute) Acute hypokalemia (Acute) Edema of abdominal wall (Acute) Edema of right lower extremity (Chronic) Fluctuating 2' CHF, fluid overload/diuresis Edema of left lower extremity (Chronic) Fluctuating 2' CHF, fluid overload/diuresis At risk for fluid and electrolyte imbalance (Acute) Long Hx 2' med changes, fluid overload. At risk for medication error (Acute) 2' ED, Hosp, Specialists, H&R, HH .. 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 4-wheel, for hill, grass & dog.. getting to basement shop and garage and acreage.. HCM and QOL .. and working for [employer]. CKD (chronic kidney disease) stage 4, GFR 15-29 ml/min (Acute) GFR @ 19-20 with elevated A1C, but @ risk of hypoglycemia.. CHANEL (acute kidney injury) (Acute) Improved with diuresis and hydration @ home, but high risk for repeat episodes Hypertension associated with diabetes (Acute) Persistent proteinuria associated with type 2 diabetes mellitus (Acute) Hyperglycemia due to diabetes mellitus (Acute) Diabetes mellitus with complication in adult patient (Chronic) Type 2 diabetes mellitus with diabetic polyneuropathy (Acute) Iron deficiency (Acute) History of anemia (Chronic) Coronary artery disease (Chronic) w/ dilated cardiomyopathy and (+) stress test ++> PCI/Stenting, 12/29/21 Ischemic cardiomyopathy (Chronic) w/ (+) stress test and PCI/Stenting, 12/29/21 ICD (implantable cardioverter-defibrillator) in place (Acute) ICD, single lead, Med[employer]onic Visia 04/27/2018 [place], [place] Elevated brain natriuretic peptide (BNP) level (Acute) thought to be near baseline, but unclear Hx Low serum albumin (Chronic) Protein WNL per 02/2022 labs Chronic systolic CHF (congestive heart failure) (Acute) EF 20-25% per Jul 2023 Echo ([facility]) Pulmonary hypertension (Acute) 12/29/21. [id number]. Noted during Cardiac cath, [facility]. NYHA Class IV Dermatitis, unspecified (Acute ~11/2021) 12/07/21 Dermatology Chronic posttraumatic stress disorder (Acute) History of posttraumatic stress disorder (PTSD) (Acute) Long Hx, Restarted with counselor, Madison Harris. 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 Working with [employer] re: prosthetics.. Rt, November 2020. Lft, 2018 (?) GERD (gastroesophageal reflux disease) (Chronic) PPI COPD (chronic obstructive pulmonary disease) (Chronic) Hx smoker (~10pkyr), PFTs (04/17/21). Disability examination (Acute) PFTs, 04/2021 for Disability 2' COPD. Housing or economic problem (Acute) Nasal polyp (Acute) Pt report based on past ENT 06/02/[address] Haque - surgical correction planned Allergic rhinitis due to allergen (Acute) Nasal turbinate hypertrophy (Acute) Other chronic sinusitis (Acute) Deviated nasal septum (Acute) Seasonal allergies (Acute) Corneal opacification (Acute) OS Proliferative retinopathy of both eyes (Acute) Full PRP OD Vitamin D deficiency (Acute) Secondary hyperparathyroidism (Acute) Medical History SARS-CoV-2 positive (~04/14/22) Dehydration Hypercalcemia (~02/21/22) Elevated troponin Positive cardiac stress test 2021 .. Cath, with stent placement + 12/29/21. Edema of abdomen Neck pain acute .. due to sleeping on sofa?? coughing? Decreased range of motion (ROM) of right knee Flexion ok; Extension is difficult .. Continues to work with PT Psoriasis Carpal tunnel syndrome of left wrist Cubital bursitis of right elbow Diabetic foot ulcer associated with type 2 diabetes mellitus RESOLVED with amputation. 09/30/20-R heel w/cellulitis-Dr Kevin,VALENTINO 10/16/20 Debridement by Podiatry 10/30/20 [facility] Vascular - RIGHT Heel Ulcer - cont close wound care by Podiatry Hx: recurrent pneumonia walking pneumonia most vines x 3 years Cervical neuropathy Tendonitis of long head of biceps brachii of right shoulder Bursitis of right shoulder Right shoulder pain Acute on chronic issue: now with elbow and hand pain (ulnar), with tingling. Finger pain, left Could this be gout? No injury. Trial Naproxen. Nasal polyps Erectile dysfunction Testicular cancer CKD stage 3 secondary to diabetes CKD, October 2022! 08/2019 Cr 1.74 ... Elevated in 2020 2' Inf/ABx/HyperGly .. [ ] re-check 03/2021! Surgical History S/P cardiac catheterization 12/29/21 [facility] (Dr. Jerry Ramírez). PCI (via R radial artery) of mid-LAD. Balloon angioplasty and lithotripsy. 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 History of amputation of left lower extremity History of amputation of great toe Right History of cardiac defibrillator placement History of cataract removal with insertion of prosthetic lens (~03/02/18) Right History of gastric bypass (~07/01/14) History of cystoscopy (~12/25/13) History of tonsillectomy (~1979) History of orchiectomy, unilateral (~06/1999) Right Family History Mother Diabetes Father Diabetes Heart disease Hypertension Sister Diabetes Brother Diabetes Brother Diabetes Heart disease Hypertension Social History (Updated 05/03/24 @ 15:23 by Koby Cuello) Smoking/Tobacco Use Status: Former Tobacco Use tobacco type: cigarettes Quit Date: 07/18/98 Tobacco: How many years used: 10 Smokeless tobacco user: chewing tobacco Quit status: considering quitting Smoking risk assessment performed?: Yes Alcohol Intake: current Alcohol Intake frequency: 0-2 drinks per day Alcohol type: hard liquor Drug use: Never Substance use type: does not use Adopted: No Caregiver/Support person: No Foster care: No Household members: significant other Housing: apartment Do you need help understanding health information?: Rarely current occupation: Unemployed Sexually active: Yes Do you think of yourself as: straight/heterosexual Current gender identity: male Do you feel safe at home: Yes (getting out of relationship) Do you feel safe in your relationship?: Yes Additional Social history: moving out Time Spent with Patient Time Spent with Patient: 70-84 minutes4 Time was spent: preparing to see the patient(eg.review tests), obtaining and/or reviewing separately otained hiistory, ordering medications,tests, procedures, referring, communicating with other health physician assistant primary care, indepentently interpreting results, counseling the patient and care coordination
--- NOTE | 2024-05-09 17:52 | NUR.NOTE ---
In chart for quality/educational reviewNursing Note:
== END 2024-05-07 16:45 | disposition home or self-care (01) | DRG 291 ==
LOC: ER 12:02 → MS 16:53
PROVIDERS: Internal Medicine; Admitting Provider Family Medicine; Emergency Provider Emergency Medicine; PCP Student in an Organized Health Care Education/Training Program; Visit Provider Family Medicine
DX: I13.0 Hypertensive heart and chronic kidney disease with heart failure and stage 1 through stage 4 chronic kidney disease, or unspecified chronic kidney disease (principal); I50.23 Acute on chronic systolic (congestive) heart failure; N18.4 Chronic kidney disease, stage 4 (severe); E11.22 Type 2 diabetes mellitus with diabetic chronic kidney disease; D63.1 Anemia in chronic kidney disease; I25.5 Ischemic cardiomyopathy; I25.10 Atherosclerotic heart disease of native coronary artery without angina pectoris; R74.8 Abnormal levels of other serum enzymes; Z79.4 Long term (current) use of insulin; Z95.810 Presence of automatic (implantable) cardiac defibrillator; Z89.512 Acquired absence of left leg below knee; Z89.511 Acquired absence of right leg below knee; W18.39XA Other fall on same level, initial encounter; R60.0 Localized edema; E87.6 Hypokalemia; E11.3593 Type 2 diabetes mellitus with proliferative diabetic retinopathy without macular edema, bilateral; E61.1 Iron deficiency; Z95.5 Presence of coronary angioplasty implant and graft; F43.12 Post-traumatic stress disorder, chronic; J44.9 Chronic obstructive pulmonary disease, unspecified; Z87.891 Personal history of nicotine dependence; K21.9 Gastro-esophageal reflux disease without esophagitis; E11.42 Type 2 diabetes mellitus with diabetic polyneuropathy; E55.9 Vitamin D deficiency, unspecified
CPT/HCPCS: 00123; 36415; 36416; 51702; 80048; 80053; 82962; 85027; 93005; 93306; 93308; 94640; 96372; 96374; 97162; 97530; 99285; J1650; 71045; 81003; 81015; 82607; 83036; 83735; 83880; 84439; 84443; 84484; 85025; 93010; 94664; 99223; 99231; 99232; 99239; J1815; J1940; J3490; P9047

== ENCOUNTER 2024-05-29 14:30 | Inpatient (IN) | payer MEDICARE, MEDICAID, SELFPAY ==
[2024-05-29] VITALS (82 sets, daily range): BP systolic 148–169; BP diastolic 95–118; PULSE 90–98; RESP 11–25; TEMP 35.9–36.4; O2SAT 87–96
--- NOTE | 2024-05-29 14:30 | RT.EKG_ITS ---
APPROVED REPORT Exam: Resting ECG Reason for Exam: Weakness Patient Location: E HR:95 bpm ECG Measurements Heart Rate 95 AXIS LA 209 P 56 QRSd 131 QRS 117 QT 380 T -64 QTc 475 Conclusion Sinus rhythm...normal P axis, V-rate 60- 99 Multiform ventricular premature complexes...short R-R, variable morphology Prolonged LA interval...LA >205, V-rate 91-[address] segment or T wave abnormalities to suggest occlusive [place]
--- NOTE | 2024-05-29 14:45 | DI.RAD_ITS ---
Exam(s) XR PORTABLE CHEST AP EXAM: XR PORTABLE CHEST AP CLINICAL HISTORY: general malaise TECHNIQUE: 2D digital imaging was performed. COMPARISON: CR XR CHEST 2V PA LATERAL from 11/09/2023 CR XR PORTABLE CHEST AP from 05/03/2024 FINDINGS: Exam is extremely limited by under penetration. Lungs are not well inflated. LUNGS: Clear. No pleural abnormality seen. HEART: Enlarged, unchanged. Pacemaker. AORTA: Normal diameter. BONES: Unremarkable for age. Soft tissues: Unremarkable. IMPRESSION: Extremely limited exam. No acute findings. DATA REPOSITORY: RADIATION DOSE DELIVERED:
--- NOTE | 2024-05-29 15:16 | W.ED.GENAD ---
Discharge Plan Disposition Patient Disposition: Admit to [facility] Condition: Serious Discharge Details Chief Complaint: GenMedical Clinical Impression: CHF (congestive heart failure), Edema, CKD (chronic kidney disease), Anemia, Non-ST elevation ND (NSTEMI) Primary Care Provider: Candice Perez ED Provider: Sherri Awan Home Meds and New Rx's Prescriptions: No Action (DME) Left Outer Sleeve See Rx Instructions .Route .MEDSUPPLY Qty: 1 0RF Rx Instructions: As directed (DME) Right prosthetic socket See Rx Instructions .Route .MEDSUPPLY Qty: 1 0RF Rx Instructions: As directed (DME) glucometer WITH MATCHING TEST STRIPS See Rx Instructions .Route .MEDSUPPLY Qty: 1 0RF Rx Instructions: Using TID until CGM available, then as back-up (DME) lancets Misc See Rx Instructions .ROUTE .MEDSUPPLY Qty: 300 3RF Rx Instructions: To check blood glucose three times daily. On insulin. Dispense covered brand. (DME) Sleeve, Left BKA See Rx Instructions .Route .MEDSUPPLY Qty: 1 0RF Rx Instructions: Per measure & fit by [employer] (DME) Sleeve, Right BKA See Rx Instructions .Route .MEDSUPPLY Qty: 1 0RF Rx Instructions: Per measure & fit by [employer] (DME) Dexcom G7 Take Down Inspector Misc See Rx Instructions .Route Qty: 1 3RF Rx Instructions: As directed to manage DM, E11.8 - 36 Sensors/year. A1C < 7.5 (DME) BKA Prosthetics, B/L See Rx Instructions .Route .MEDSUPPLY Qty: 2 1RF Rx Instructions: Measurement/fitting TBD by [employer] unless out-sourced levalbuterol tartrate 45 mcg/actuation HFA aerosol inhaler 2 inh inhalation Q6H Qty: 15 1RF Rx Instructions: TRIAL LEV-ALB INHALER (DME) Amputation Compression Sleeve See Rx Instructions .Route .MEDSUPPLY Qty: 1 0RF Rx Instructions: Please provide and fit a compression sleeve to the left BKA stump for appropriate prosthesis wear. (DME) fore arm cuff crutches See Rx Instructions .Route .MEDSUPPLY Qty: 1 0RF Rx Instructions: dispense 1 pair acetaminophen 325 mg tablet 650 mg PO Q4H PRN (Reason: fever or pain) Qty: 180 1RF azelastine 137 mcg (0.1 %) aerosol,spray See Rx Instructions intranasal BID Qty: 30 1RF Rx Instructions: 1-2 sprays intranasal twice a day; administer into each nostril (DME) FreeStyle Luis 2 [place] Misc See Rx Instructions .ROUTE .MEDSUPPLY Qty: 1 0RF Rx Instructions: As directed (DME) FreeStyle Luis 2 Sensor Kit See Rx Instructions .ROUTE .MEDSUPPLY Qty: 6 3RF Rx Instructions: As directed clobetasol 0.05 % spray,non-aerosol 1 applic topical BID 7 Days Qty: 59 1RF Rx Instructions: not to exceed 26 sprays per single application fluticasone propionate [Allergy Relief (fluticasone)] 50 mcg/actuation spray,suspension 1 spray intranasal DAILY Qty: 16 1RF Rx Instructions: administer into each nostril (DME) Contour Test Strips Strip See Rx Instructions .Route Qty: 100 2RF Rx Instructions: DX E11.9 Check BS TID use as back up if CGM fails. pantoprazole 40 mg tablet,delayed release (DR/EC) 40 mg PO DAILY Qty: 90 3RF Farxiga 5 mg tablet See Rx Instructions .ROUTE .COMPLEX Qty: 28 10RF Dose Instruction: TAKE 1 TABLET BY MOUTH DAILY FOR TYPE 2 DIABETES MELLITUS NOT AT GOAL, STAGE 3 CKD Rx Instructions: TAKE 1 TABLET BY MOUTH DAILY FOR TYPE 2 DIABETES MELLITUS NOT AT GOAL, STAGE 3 CKD ascorbic acid (vitamin C) 1,000 mg tablet 500 mg PO DAILY Qty: 90 3RF Rx Instructions: Doses exceeding 500mg daily will invalidate CGM sensor. 02/04/22 EO Spiriva Respimat 2.5 mcg/actuation mist See Rx Instructions .ROUTE .COMPLEX Qty: 4 3RF Dose Instruction: INHALE 2 PUFFS BY MOUTH DAILY Rx Instructions: INHALE 2 PUFFS BY MOUTH DAILY (DME) pen needle, diabetic [BD Ultra-Fine Mini Pen Needle] 31 gauge x 3/16 needle See Rx Instructions .Route Qty: 300 3RF Rx Instructions: As directed for injecting Lantus/humalog to maintain A1C < 7, DM E11.8 clopidogrel 75 mg tablet 75 mg PO DAILY Qty: 30 5RF Rx Instructions: take separately from reflux medication. sodium bicarbonate 650 mg tablet 650 mg PO BID cholecalciferol (vitamin D3) 25 mcg (1,000 unit) capsule 25 mcg PO DAILY Qty: 90 3RF cyanocobalamin (vitamin B-12) 1,000 mcg capsule 1,000 mcg PO DAILY Qty: 90 3RF atorvastatin 10 mg tablet 10 mg PO DAILY Qty: 90 3RF cetirizine 10 mg tablet 10 mg PO DAILY Qty: 90 3RF aspirin 81 mg tablet,delayed release (DR/EC) 81 mg PO DAILY Qty: 90 3RF carvedilol 12.5 mg tablet 12.5 mg PO BID Qty: 180 3RF Rx Instructions: must administer with a meal/food (DME) Dexcom G7 Sensor Device See Rx Instructions .Route Qty: 3 11RF Rx Instructions: For A1C < 7.5, DM E11.8 (36 per year) insulin glargine 100 unit/mL (3 mL) insulin pen 36 unit subcut QPM Qty: 15 3RF Rx Instructions: 01/27/24-pt reports this is what he's taking-LH insulin lispro [Humalog KwikPen Insulin] 100 unit/mL insulin pen 1 sliding scale dose subcut USEASDIRECTD MDD 50 units Qty: 15 3RF Rx Instructions: [facility] - current correction of 1u:30mg/dl, starting at 130mg/dl per pt. 01/06/21 Dupixent Syringe 300 mg/2 mL syringe 300 mg SUBCUT Q2W indapamide 2.5 mg tablet 5 mg PO DAILY furosemide 40 mg Tablet 40 mg PO BID@0830,1600 Qty: 60 0RF HPI General Mode of arrival: EMS. Date/Time Provider Initiated Documentation: 05/29/24 14:31. Limitations to Documentation: no limitations. Information obtained by: patient and old records reviewed (april 2023 ED visit/admission HPI/discharge summary). HPI Narrative: 54yo M with DM, CHF (EF 25%) with AICD in place, CKD (not on dialysis), bilateral BKA, presenting for generalized weakness and fluid retention. For the past three to four days has felt week all over, having difficulty transferring, unable to take care of his himself today. Having difficulty getting his protheses on due to swelling. Feels like his abdomen is tight and swollen. Had similar symptoms in April with hospital admission for diuresis and potassium replacement. He reports that he is still on the same outpatient diuretic regimen that he was on before that admission with no changes. Otherwise in his usual state of health. No fevers, chills, rash, chest pain, shortness of breath, abdominal pain. lightheadedness, focal weakness, numbness, nausea, vomiting, diarrhea, falls/trauma, or other concerns. Related Data Home Medications ?Medication ?Instructions ?Recorded ?Confirmed Amputation Compression Sleeve #1 ea 01/26/21 05/29/24 fore arm cuff crutches #1 ea 06/07/21 05/29/24 Left Outer Sleeve #1 ea 12/07/21 05/29/24 acetaminophen 325 mg tablet 650 mg (2 x 325 mg) PO Q4H PRN 04/02/22 05/29/24 fever or pain #180 tabs azelastine 137 mcg (0.1 %) nasal See Rx Instructions intranasal BID 04/02/22 05/29/24 spray #30 mL flash glucose scanning reader #1 ea 04/02/22 05/29/24 (FreeStyle Luis 2 [place]) flash glucose sensor (FreeStyle #6 ea 04/02/22 05/29/24 Luis 2 Sensor kit) Right prosthetic socket #1 ea 05/13/22 05/29/24 clobetasol 0.05 % topical spray 1 applic topical BID 1 week #59 mL 08/19/22 05/29/24 fluticasone propionate 50 1 spray intranasal DAILY #16 grams 12/02/22 05/29/24 mcg/actuation nasal spray,suspension (Allergy Relief (fluticasone)) blood-glucose meter,continuous #1 ea 01/25/23 05/29/24 ([employer] G7 Take Down Inspector) glucometer WITH MATCHING TEST #1 ea 03/10/23 05/29/24 STRIPS lancets #300 ea 03/10/23 05/29/24 blood sugar diagnostic (Contour #100 ea 03/18/23 05/29/24 Test Strips) pantoprazole 40 mg tablet,delayed 40 mg PO DAILY #90 tabs 05/22/23 05/29/24 release ascorbic acid (vitamin C) 1,000 mg 500 mg (1/2 x 1,000 mg) PO DAILY 08/09/23 05/29/24 tablet #90 tabs dapagliflozin propanediol 5 mg See Rx Instructions .Route 08/09/23 05/29/24 tablet (Farxiga) .COMPLEX #28 tabs tiotropium bromide 2.5 See Rx Instructions .Route 10/10/23 05/29/24 mcg/actuation mist for inhalation .COMPLEX #4 grams (Spiriva Respimat) Sleeve, Left BKA #1 ea 10/15/23 05/29/24 Sleeve, Right BKA #1 ea 10/15/23 05/29/24 pen needle, diabetic 31 gauge x #300 ea 10/20/23 05/29/24 3/16 (BD Ultra-Fine Mini Pen Needle) dupilumab 300 mg/2 mL subcutaneous 300 mg subcut Q2W 10/29/23 05/29/24 syringe (Dupixent) BKA Prosthetics, B/L #2 ea 01/21/24 05/29/24 clopidogrel 75 mg tablet 75 mg PO DAILY #30 tabs 01/26/24 05/29/24 sodium bicarbonate 650 mg tablet 650 mg PO BID 01/27/24 05/29/24 aspirin 81 mg tablet,delayed 81 mg PO DAILY #90 tabs 02/21/24 05/29/24 release atorvastatin 10 mg tablet 10 mg PO DAILY #90 tabs 02/21/24 05/29/24 carvedilol 12.5 mg tablet 12.5 mg PO BID #180 tabs 02/21/24 05/29/24 cetirizine 10 mg tablet 10 mg PO DAILY #90 tabs 02/21/24 05/29/24 cholecalciferol (vitamin D3) 25 25 mcg PO DAILY #90 caps 02/21/24 05/29/24 mcg (1,000 unit) capsule cyanocobalamin (vitamin B-12) 1,000 mcg PO DAILY #90 caps 02/21/24 05/29/24 1,000 mcg capsule blood-glucose sensor (Dexcom G7 #3 ea 02/25/24 05/29/24 Sensor device) insulin glargine 100 unit/mL (3 36 unit (0.36 mL) subcut QPM #15 mL 03/10/24 05/29/24 mL) subcutaneous pen insulin lispro 100 unit/mL 1 sliding scale dose subcut 03/10/24 05/29/24 subcutaneous pen (Humalog KwikPen USEASDIRECTD DM, E11.8 .. to jeep (U-100) Insulin) A1C < 7.5 #15 mL indapamide 2.5 mg tablet 5 mg PO DAILY 05/03/24 05/29/24 furosemide 40 mg tablet 40 mg PO BID@0830,1600 #60 tabs 05/07/24 05/29/24 levalbuterol tartrate 45 2 inh inhalation Q6H #15 grams 05/09/24 05/29/24 mcg/actuation aerosol inhaler Previous Rx's ?Medication ?Instructions ?Recorded Amputation Compression Sleeve #1 ea 01/26/21 fore arm cuff crutches #1 ea 06/07/21 Left Outer Sleeve #1 ea 12/07/21 acetaminophen 325 mg tablet 650 mg (2 x 325 mg) PO Q4H PRN 04/02/22 fever or pain #180 tabs azelastine 137 mcg (0.1 %) nasal See Rx Instructions intranasal BID 04/02/22 spray #30 mL flash glucose scanning reader #1 ea 04/02/22 (FreeStyle Luis 2 [place]) flash glucose sensor (FreeStyle #6 ea 04/02/22 Ulis 2 Sensor kit) Right prosthetic socket #1 ea 05/13/22 clobetasol 0.05 % topical spray 1 applic topical BID 1 week #59 mL 08/19/22 fluticasone propionate 50 1 spray intranasal DAILY #16 grams 12/02/22 mcg/actuation nasal spray,suspension (Allergy Relief (fluticasone)) blood-glucose meter,continuous #1 ea 01/25/23 ([employer] G7 Take Down Inspector) glucometer WITH MATCHING TEST #1 ea 03/10/23 STRIPS lancets #300 ea 03/10/23 blood sugar diagnostic (Contour #100 ea 03/18/23 Test Strips) pantoprazole 40 mg tablet,delayed 40 mg PO DAILY #90 tabs 05/22/23 release ascorbic acid (vitamin C) 1,000 mg 500 mg (1/2 x 1,000 mg) PO DAILY 08/09/23 tablet #90 tabs dapagliflozin propanediol 5 mg See Rx Instructions .Route 08/09/23 tablet (Farxiga) .COMPLEX #28 tabs tiotropium bromide 2.5 See Rx Instructions .Route 10/10/23 mcg/actuation mist for inhalation .COMPLEX #4 grams (Spiriva Respimat) Sleeve, Left BKA #1 ea 10/15/23 Sleeve, Right BKA #1 ea 10/15/23 pen needle, diabetic 31 gauge x #300 ea 10/20/23 3/16 (BD Ultra-Fine Mini Pen Needle) BKA Prosthetics, B/L #2 ea 01/21/24 clopidogrel 75 mg tablet 75 mg PO DAILY #30 tabs 01/26/24 aspirin 81 mg tablet,delayed 81 mg PO DAILY #90 tabs 02/21/24 release atorvastatin 10 mg tablet 10 mg PO DAILY #90 tabs 02/21/24 carvedilol 12.5 mg tablet 12.5 mg PO BID #180 tabs 02/21/24 cetirizine 10 mg tablet 10 mg PO DAILY #90 tabs 02/21/24 cholecalciferol (vitamin D3) 25 25 mcg PO DAILY #90 caps 02/21/24 mcg (1,000 unit) capsule cyanocobalamin (vitamin B-12) 1,000 mcg PO DAILY #90 caps 02/21/24 1,000 mcg capsule blood-glucose sensor (Dexcom G7 #3 ea 02/25/24 Sensor device) insulin glargine 100 unit/mL (3 36 unit (0.36 mL) subcut QPM #15 mL 03/10/24 mL) subcutaneous pen insulin lispro 100 unit/mL 1 sliding scale dose subcut 03/10/24 subcutaneous pen (Humalog KwikPen USEASDIRECTD DM, E11.8 .. to jeep (U-100) Insulin) A1C < 7.5 #15 mL furosemide 40 mg tablet 40 mg PO BID@0830,1600 #60 tabs 05/07/24 levalbuterol tartrate 45 2 inh inhalation Q6H #15 grams 05/09/24 mcg/actuation aerosol inhaler Allergies Allergy/AdvReac Type Severity Reaction Status Date / Time tramadol AdvReac Severe renal Verified 05/29/24 14:43 failure insulin aspart AdvReac Mild HypOglycemi Verified 05/29/24 14:43 a Poor Renal Function AdvReac Unknown renal Uncoded 05/29/24 14:43 failure General Stated Complaint: GenMedical RAMON: 3 Review of Systems Narrative: see HPI Exam Narrative Exam Narrative: General: Alert, in no acute distress. Head: Normocephalic, atraumatic Neck: Trachea midline, ?Neck supple. ENT: ?MMM.? No oropharygeal lesions or exudate. Cardiac: ?RRR, no murmurs appreciated Resp: No respiratory distress. CTAB. Abd: ?Soft, nontender. Mildly distended. : ?No suprapubic tenderness. Extremities: ?Bilateral BKA.? No pitting edema. Neurologic: GCS 15. ? Moves all extremities freely against gravity Course Vital Signs Vital signs: Vital Signs Temperature 36.4 C L 05/29/24 14:36 Pulse 98 H 05/29/24 14:36 Respiratory Rate 15 05/29/24 14:36 Blood Pressure 148/95 H 05/29/24 14:36 Pulse Oximetry 92 05/29/24 14:36 Temperature 36.4 C L 05/29/24 14:36 Pulse 98 H 05/29/24 14:36 Respiratory Rate 15 05/29/24 14:44 Respiratory Effort Normal 05/29/24 14:44 Respiratory Depth Normal 05/29/24 14:44 Respiratory Pattern Irregular 05/29/24 14:44 Blood Pressure 148/95 H 05/29/24 14:36 Pulse Oximetry 91 L 05/29/24 14:48 Oxygen Delivery Method Room Air 05/29/24 14:48 Oxygen Flow Rate 0 05/29/24 14:36 Pain Level 0 05/29/24 14:48 Medical Decision Making 54yo M with DM, CHF (EF 25%) with AICD in place, CKD (not on dialysis), bilateral BKA, presenting for generalized weakness and fluid retention. Similar symptoms in April with hospital admission for diuresis and potassium replacement. Slightly tachycardiac to 90's on arrival with O2 sat 90-02% on room air, vital signs otherwise reassuring. No respiratory distress on exam. No chest pain or syncope. -EKG SR, IVCD, PVCs, no ST segment or T wave abnormalities to suggest occlusive ND. -CXR independently reviewed, no focal pneumonia or pneumothorax on my view, agree with radiology read below. -Labs reviewed as below, CBC reassuring with no leukocytosis or significant anemia, CMP consistent with known CKD- Cr 4.6 roughly baseline, mild hyponatremia at 132, no hypokalemia, Mg normal, ammonia normal, BNP markeldy elevated at >35,000, initial troponin 1153 with one hour repeat mildly uptrending to 1222. Making good urine, 300cc thus far in the ED. Ordered 80mg IV lasix. Last admission had was approximately 11 liters net negative upon discharge. Overall clinical picture most consistent with volume overload/CHF, not suggestive of sepsis. Considered pulmonary embolism however is less likely and with patient with severe renal disease and not yet on dialysis I am hesitant to get a contrasted scan at this time as I do think PE is much less likely than straight volume overload/CHF. Bedside echo peformed, very limited study 2/t body habitus, shows globally reduced EF . Troponin likely represents heart strain d/t volume overload, however given that it is uptrending and patient with more complicated cardiac history will discussed with [facility] [place] prior to admission here. Spoke with [facility] [place]. Linares; agree likely demand, advised aggressive duiresis, no indication for heparin or urgent/emergent ischemic eval. Discussed with [facility] hospitalist; pt accepted to medicine service. Awaiting admission orders and transfer to the floor. Medical Records Medical records reviewed: Yes I reviewed the patient's medical records. Imaging Data Radiologic Study: Imaging: X-Ray Radiologist's impression: IMPRESSION: Extremely limited exam. No acute findings. Lab Data Lab results reviewed: Yes I reviewed the patient's lab results. Labs: Laboratory Tests Range/Units 05/29/24 05/29/24 05/29/24 15:25 15:36 16:25 WBC (4.4-10.8) 10^3/uL 8.05 RBC (4.36-5.78) 10^6/uL 3.98 L Hgb (13.5-17.5) g/dL 13.4 L Hct (40.0-50.0) % 39.0 L MCV (80-95) fL 98 H MCH (27.0-33.0) pg 33.7 H MCHC (32.0-36.0) % 34.4 RDW (11.8-14.1) % 14.5 H Plt Count (130-400) 10^3/uL 168 MPV (8.0-11.0) fL 9.8 Immature Gran % % 0.5 Neutrophils % % 85.9 Lymphocytes % % 4.7 Monocytes % % 8.0 Eosinophils % % 0.7 Basophils % % 0.2 Nucleated RBC % (0.0-0.3) % 0.2 Absolute Neutrophils (1.2-6.7) 10^3/uL 6.91 H Absolute Lymphocytes (1.2-3.4) 10^3/uL 0.38 L Absolute Monocytes (0.1-0.8) 10^3/uL 0.64 Absolute Eosinophils (0.0-0.7) 10^3/uL 0.06 Absolute Basophils (0.0-0.2) 10^3/uL 0.02 Sodium (136-145) mmol/L 132 L Potassium (3.5-5.1) mmol/L 3.5 Chloride (98-107) mmol/L 90 L Carbon Dioxide (21.0-32.0) mmol/L 24.2 Anion Gap (3-11) mmol/L 17.8 H BUN (7-18) mg/dL 101 H* Creatinine (0.70-1.30) mg/dL 4.6 H* Est GFR (CKD-EPI 2020) (mL/min/1.73m2) 14.33 Glucose (74-106) mg/dL 255 H Calcium (8.5-10.1) mg/dL 8.8 Magnesium (1.8-2.4) mg/dL 2.4 Total Bilirubin (0.2-1.0) mg/dL 0.61 AST (15-37) U/L 18 ALT (16-63) U/L 29 Alkaline Phosphatase (46-116) U/L 132 H Ammonia (11-32) umol/L 21 Troponin I (<or=76) ng/L 1153 H* 1222 H* NT-Pro-B Natriuret Pep (<300) pg/mL > 96485 H Total Protein (6.4-8.2) g/dL 6.7 Albumin (3.4-5.0) g/dL 3.0 L COVID-19 Source Nasopharynx SARS-CoV-2 (PCR) (Negative) Negative Influenza Type A (PCR) (Negative) Negative Influenza Type B (PCR) (Negative) Negative RSV (PCR) (Negative) Negative Quality:SDOH Health Related Social Needs: Health related social needs housing instability, housed, with risk of homelessness(Z59.811) [facility] All Active Problems (Updated 05/29/24 @ 19:18 by Sherri Awan MD) Non-ST elevation ND (NSTEMI) (Acute) Anemia (Chronic) CKD (chronic kidney disease) (Chronic) Edema (Acute) CHF (congestive heart failure) (Chronic) CHF (congestive heart failure) (Chronic) PDR (proliferative diabetic retinopathy) (Acute ~05/25/24) 05/25/24 [facility] note.HE Anemia in CKD (chronic kidney disease) (Acute) Glucosuria (Acute) Proteinuria (Acute) Acute systolic (congestive) heart failure (Acute) Edema of abdominal wall (Acute) Edema of right lower extremity (Chronic) Fluctuating 2' CHF, fluid overload/diuresis Edema of left lower extremity (Chronic) Fluctuating 2' CHF, fluid overload/diuresis At risk for fluid and electrolyte imbalance (Acute) Long Hx 2' med changes, fluid overload. At risk for medication error (Acute) 2' ED, Hosp, Specialists, H&R, HH .. and transportation/delivery difficulties Type 2 diabetes mellitus with proliferative diabetic retinopathy without macular edema, bilateral (Acute) COVID (Acute ~06/22/23) Edema (Acute) Hyperphosphatemia associated with renal failure (Acute) Decreased ambulation status (Acute) Scooter, for outside .. 4-wheel, for hill, grass & dog.. getting to basement shop and garage and acreage.. HCM and QOL .. and working for [employer]. CKD (chronic kidney disease) stage 4, GFR 15-29 ml/min (Acute) GFR @ 19-20 with elevated A1C, but @ risk of hypoglycemia.. CHANEL (acute kidney injury) (Acute) Improved with diuresis and hydration @ home, but high risk for repeat episodes Hypertension associated with diabetes (Acute) Persistent proteinuria associated with type 2 diabetes mellitus (Acute) Hyperglycemia due to diabetes mellitus (Acute) Diabetes mellitus with complication in adult patient (Chronic) Type 2 diabetes mellitus with diabetic polyneuropathy (Acute) Iron deficiency (Acute) History of anemia (Chronic) Coronary artery disease (Chronic) w/ dilated cardiomyopathy and (+) stress test ++> PCI/Stenting, 12/29/21 Ischemic cardiomyopathy (Chronic) w/ (+) stress test and PCI/Stenting, 12/29/21 ICD (implantable cardioverter-defibrillator) in place (Acute) ICD, single lead, Med[employer]onic Visia 04/27/2018 [place], [place] Elevated brain natriuretic peptide (BNP) level (Acute) thought to be near baseline, but unclear Hx Low serum albumin (Chronic) Protein WNL per 02/2022 labs Chronic systolic CHF (congestive heart failure) (Acute) EF 20-25% per Jul 2023 Echo ([facility]) Pulmonary hypertension (Acute) 12/29/21. [id number]. Noted during Cardiac cath, [facility]. NYHA Class IV Dermatitis, unspecified (Acute ~11/2021) 12/07/21 Dermatology Chronic posttraumatic stress disorder (Acute) History of posttraumatic stress disorder (PTSD) (Acute) Long Hx, Restarted with counselor, Madison Harris. 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 Working with [employer] [facility] re: prosthetics.. Rt, November 2020. Lft, 2018 (?) GERD (gastroesophageal reflux disease) (Chronic) PPI COPD (chronic obstructive pulmonary disease) (Chronic) Hx smoker (~10pkyr), PFTs (04/17/21). Disability examination (Acute) PFTs, 04/2021 for Disability 2' COPD. Housing or economic problem (Acute) Nasal polyp (Acute) Pt report based on past ENT 06/02/[address] Haque - surgical correction planned Allergic rhinitis due to allergen (Acute) Nasal turbinate hypertrophy (Acute) Other chronic sinusitis (Acute) Deviated nasal septum (Acute) Seasonal allergies (Acute) Corneal opacification (Acute) OS Proliferative retinopathy of both eyes (Acute) Full PRP OD Vitamin D deficiency (Acute) Secondary hyperparathyroidism (Acute) Medical History CKD stage 3 secondary to diabetes CKD4, October 2022! 08/2019 Cr 1.74 ... Elevated in 2020 2' Inf/ABx/HyperGly .. [ ] re-check 03/2021! SARS-CoV-2 positive (~04/14/22) Dehydration Hypercalcemia (~02/21/22) Elevated troponin Positive cardiac stress test 2021 .. Cath, with stent placement + 12/29/21. Edema of abdomen Neck pain acute .. due to sleeping on sofa?? coughing? Decreased range of motion (ROM) of right knee Flexion ok; Extension is difficult .. Continues to work with PT Psoriasis Carpal tunnel syndrome of left wrist Cubital bursitis of right elbow Diabetic foot ulcer associated with type 2 diabetes mellitus RESOLVED with amputation. 09/30/20-R heel w/cellulitis-Dr Kevin,DPM 10/16/20 Debridement by Podiatry 10/30/20 [facility] [place] - RIGHT Heel Ulcer - cont close wound care by Podiatry Hx: recurrent pneumonia walking pneumonia most vines x 3 years Cervical neuropathy Tendonitis of long head of biceps brachii of right shoulder Bursitis of right shoulder Right shoulder pain Acute on chronic issue: now with elbow and hand pain (ulnar), with tingling. Finger pain, left Could this be gout? No injury. Trial Naproxen. Nasal polyps Erectile dysfunction Testicular cancer Surgical History S/P cardiac catheterization 12/29/21 [facility] (Dr. Jerry Ramírez). PCI (via R radial artery) of mid-LAD. Balloon angioplasty and lithotripsy. 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 History of amputation of left lower extremity History of amputation of great toe Right History of cardiac defibrillator placement History of cataract removal with insertion of prosthetic lens (~03/02/18) Right History of gastric bypass (~07/01/14) History of cystoscopy (~12/25/13) History of tonsillectomy (~1979) History of orchiectomy, unilateral (~06/1999) Right Family History Mother Diabetes Father Diabetes Heart disease Hypertension Sister Diabetes Brother Diabetes Brother Diabetes Heart disease Hypertension Social History Smoking/Tobacco Use Status: Former Tobacco Use tobacco type: cigarettes Quit Date: 07/18/98 Tobacco: How many years used: 10 Smokeless tobacco user: chewing tobacco Quit status: considering quitting Smoking risk assessment performed?: Yes Alcohol Intake: current Alcohol Intake frequency: 0-2 drinks per day Alcohol type: hard liquor Drug use: Never Substance use type: does not use Adopted: No Caregiver/Support person: No Foster care: No Household members: significant other Housing: apartment Do you need help understanding health information?: Rarely current occupation: Unemployed Sexually active: Yes Do you think of yourself as: straight/heterosexual Current gender identity: male Do you feel safe at home: Yes (getting out of relationship) Do you feel safe in your relationship?: Yes Additional Social history: moving out POCUS Exam (ED) Limited Cardiac Exam DATE OF EXAM: 05/29/24 TIME OF EXAM: 18:30 PROVIDER THAT PERFORMED THE STUDY: Sherri Awan IS THIS A REPEAT EXAM DURING THIS ENCOUNTER: no REASON FOR EXAM: Congestive heart failure VISUALIZED STRUCTURES: Four Chambers VIEW OBTAINED: Parasternal long-axis, Parasternal short-axis and Subxiphoid PERTINENT FINDINGS/IMPRESSION: LV dysfunction; No pericardial effusion Exam complete
[2024-05-29 15:33] LABS: Abs Immature Grans 0.04 10^3/uL (0.0-0.06); Absolute Basophil Count 0.02 10^3/uL (0.0-0.2); Absolute Eosinophil Count 0.06 10^3/uL (0.0-0.7); Absolute Lymphocyte Count 0.38 10^3/uL (1.2-3.4); Absolute Monocyte Count 0.64 10^3/uL (0.1-0.8); Absolute Neutrophil Count 6.91 10^3/uL (1.2-6.7); Basophils % 0.2 %; Eosinophils % 0.7 %; HGB 13.4 g/dL (13.5-17.5); Immature Grans % 0.5 %; Lymphocytes % 4.7 %; MCH 33.7 pg (27.0-33.0); MCHC 34.4 % (32.0-36.0); MCV 98 fL (80-95); MPV 9.8 fL (8.0-11.0); Neutrophils % 85.9 %; Nucleated RBC 0.2 % (0.0-0.3); Platelet Count 168 10^3/uL (130-400); RBC 3.98 10^6/uL (4.36-5.78); RDW 14.5 % (11.8-14.1); RDW-SD 51.6 fL; WBC 8.05 10^3/uL (4.4-10.8)
[2024-05-29 16:02] LABS: Ammonia 21 umol/L (11-32)
[2024-05-29 16:18] LABS: ALT 29 U/L (16-63); AST 18 U/L (15-37); Alkaline Phosphatase 132 U/L (46-116); Anion Gap 17.8 mmol/L (3-11); Bilirubin, Total 0.61 mg/dL (0.2-1.0); CO2 24.2 mmol/L (21.0-32.0); Calcium 8.8 mg/dL (8.5-10.1); Chloride 90 mmol/L (98-107); Estimated GFR 14.33 (mL/min/1.73m2); Glucose 255 mg/dL (74-106); Magnesium 2.4 mg/dL (1.8-2.4); Potassium 3.5 mmol/L (3.5-5.1); Sodium 132 mmol/L (136-145); Total Protein 6.7 g/dL (6.4-8.2)
[2024-05-29 16:19] LABS: COVID-19 PCR Negative (Negative); Influenza A PCR Negative (Negative); Influenza B PCR Negative (Negative); RSV PCR Negative (Negative)
[2024-05-29 16:20] LABS: Source Nasopharynx
[2024-05-29 16:26] LABS: BUN 101 mg/dL (7-18)
[2024-05-29 16:27] LABS: CREATININE 4.6 mg/dL (0.70-1.30); Troponin I 1153 ng/L (<or=76)
[2024-05-29 16:53] LABS: NT-proBNP > 35000 pg/mL (<300)
[2024-05-29 16:55] LABS: Troponin I 1222 ng/L (<or=76)
[2024-05-29] MEDS: Furosemide 100 MG/10 ML VIAL 80 MG IVP (17:03)
--- NOTE | 2024-05-29 17:15 | RT.EKG_ITS ---
APPROVED REPORT Exam: Resting ECG Reason for Exam: chf Patient Location: E HR:91 bpm ECG Measurements Heart Rate 91 AXIS MT 198 P 59 QRSd 133 QRS 131 QT 396 T -53 QTc 492 Conclusion Sinus rhythm...normal P axis, V-rate 60- 99 Ventricular premature complex...V complex w/ short R-R interval Borderline prolonged MT interval...MT >197, V-rate 91-120 Probable left atrial enlargement...P >50mS, <-0.10mV V1 RBBB and LPFB...QRSd >120mS, axis(90,210) no ST segment or T wave abnormalitites to suggest occlusive MN
[2024-05-29 18:43] LABS: Troponin I 1391 ng/L (<or=76)
--- NOTE | 2024-05-29 18:49 | W.PM.HP.N ---
Date of service: 05/29/24 Time of Service: 18:49 Assessment and Plan Assessment and plan (1) CHF (congestive heart failure): Status: Chronic Assessment and plan: Exacerbation CHF, precipitant not evident. I wonder if the modest (and relatively flat) elevation in troponins could represent a somewhat recent (precipitating) event but there does not appear to be any acute ACS. Regardless will continue aggressive diuresis (may need infusion). 2. HTN: currently on diuretic and beta adithya. Has been on HALI in past but problematic given CRF. Will trend BP as diuresis progresses, no new meds for now. 3. DM: will continue basal insulin at modestly reduced dose, along with SS coverage Reviewed ADs, requests Full Code. History of Present Illness History of Present Illness Chief Complaint: weakness Narrative: 54 male with DM, CRF (not on HD), CAD, unspecified cardiomyopathy with EF 25%, with AICD. Here last month with volume overload requiring intensive diuresis. Home at 157 kg. Returns with 3 days of generalized weakness and increasing peripheral edema (manifesting with swollen stumps from bilateral BKA). In ER findings of note for weight 165 kg, BNP>35,000, troponin 1153, 1222, 1391, with EKG without change from baseline. CXR shows cardiomegaly but no gross pulmonary edema (formal read, to my read probably mild edema). Renal function approx baseline, with BUN 101, Creat 4.6. Patient given 80 Lasix IVP and has been having warm diuresis. Cardiology consulted regarding troponins, feeling was that this does not represent ACS and no specific interventions advised. I was asked to evaluate for admission. Patient denies CP, SOB, change in meds or additional salt in diet. Review of Systems Narrative: per HPI PFSH All Active Problems (Updated 05/29/24 @ 19:02 by Tu Elizondo MD) CHF (congestive heart failure) (Chronic) PDR (proliferative diabetic retinopathy) (Acute ~05/25/24) 05/25/24 [facility] note.HE Anemia in CKD (chronic kidney disease) (Acute) Glucosuria (Acute) Proteinuria (Acute) Acute systolic (congestive) heart failure (Acute) Edema of abdominal wall (Acute) Edema of right lower extremity (Chronic) Fluctuating 2' CHF, fluid overload/diuresis Edema of left lower extremity (Chronic) Fluctuating 2' CHF, fluid overload/diuresis At risk for fluid and electrolyte imbalance (Acute) Long Hx 2' med changes, fluid overload. At risk for medication error (Acute) 2' ED, Hosp, Specialists, H&R, HH .. and transportation/delivery difficulties Type 2 diabetes mellitus with proliferative diabetic retinopathy without macular edema, bilateral (Acute) COVID (Acute ~06/22/23) Edema (Acute) Hyperphosphatemia associated with renal failure (Acute) Decreased ambulation status (Acute) Scooter, for outside .. 4-wheel, for hill, grass & dog.. getting to basement shop and garage and acreage.. HCM and QOL .. and working for [employer]. CKD (chronic kidney disease) stage 4, GFR 15-29 ml/min (Acute) GFR @ 19-20 with elevated A1C, but @ risk of hypoglycemia.. CHANEL (acute kidney injury) (Acute) Improved with diuresis and hydration @ home, but high risk for repeat episodes Hypertension associated with diabetes (Acute) Persistent proteinuria associated with type 2 diabetes mellitus (Acute) Hyperglycemia due to diabetes mellitus (Acute) Diabetes mellitus with complication in adult patient (Chronic) Type 2 diabetes mellitus with diabetic polyneuropathy (Acute) Iron deficiency (Acute) History of anemia (Chronic) Coronary artery disease (Chronic) w/ dilated cardiomyopathy and (+) stress test ++> PCI/Stenting, 12/29/21 Ischemic cardiomyopathy (Chronic) w/ (+) stress test and PCI/Stenting, 12/29/21 ICD (implantable cardioverter-defibrillator) in place (Acute) ICD, single lead, Med[employer]onic Visia 04/27/2018 [place], [place] Elevated brain natriuretic peptide (BNP) level (Acute) thought to be near baseline, but unclear Hx Low serum albumin (Chronic) Protein WNL per 02/2022 labs Chronic systolic CHF (congestive heart failure) (Acute) EF 20-25% per Jul 2023 Echo ([facility]) Pulmonary hypertension (Acute) 12/29/21. [id number]. Noted during Cardiac cath, [facility]. NYHA Class IV Dermatitis, unspecified (Acute ~11/2021) 12/07/21 Dermatology Chronic posttraumatic stress disorder (Acute) History of posttraumatic stress disorder (PTSD) (Acute) Long Hx, Restarted with counselor, Madison Harris. 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 Working with Training Advisor re: prosthetics.. Rt, November 2020. Lft, 2018 (?) GERD (gastroesophageal reflux disease) (Chronic) PPI COPD (chronic obstructive pulmonary disease) (Chronic) Hx smoker (~10pkyr), PFTs (04/17/21). Disability examination (Acute) PFTs, 04/2021 for Disability 2' COPD. Housing or economic problem (Acute) Nasal polyp (Acute) Pt report based on past ENT 06/02/[address] Haque - surgical correction planned Allergic rhinitis due to allergen (Acute) Nasal turbinate hypertrophy (Acute) Other chronic sinusitis (Acute) Deviated nasal septum (Acute) Seasonal allergies (Acute) Corneal opacification (Acute) OS Proliferative retinopathy of both eyes (Acute) Full PRP OD Vitamin D deficiency (Acute) Secondary hyperparathyroidism (Acute) Medical History CKD stage 3 secondary to diabetes CKD4, October 2022! 08/2019 Cr 1.74 ... Elevated in 2020 2' Inf/ABx/HyperGly .. [ ] re-check 03/2021! SARS-CoV-2 positive (~04/14/22) Dehydration Hypercalcemia (~02/21/22) Elevated troponin Positive cardiac stress test 2021 .. Cath, with stent placement + 12/29/21. Edema of abdomen Neck pain acute .. due to sleeping on sofa?? coughing? Decreased range of motion (ROM) of right knee Flexion ok; Extension is difficult .. Continues to work with PT Psoriasis Carpal tunnel syndrome of left wrist Cubital bursitis of right elbow Diabetic foot ulcer associated with type 2 diabetes mellitus RESOLVED with amputation. 09/30/20-R heel w/cellulitis-Dr Kevin,DPDilia 10/16/20 Debridement by Podiatry 10/30/20 [facility] Vascular - RIGHT Heel Ulcer - cont close wound care by Podiatry Hx: recurrent pneumonia walking pneumonia most vines x 3 years Cervical neuropathy Tendonitis of long head of biceps brachii of right shoulder Bursitis of right shoulder Right shoulder pain Acute on chronic issue: now with elbow and hand pain (ulnar), with tingling. Finger pain, left Could this be gout? No injury. Trial Naproxen. Nasal polyps Erectile dysfunction Testicular cancer Surgical History S/P cardiac catheterization 12/29/21 [facility] (Dr. Jerry Ramírez). PCI (via R radial artery) of mid-LAD. Balloon angioplasty and lithotripsy. 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 History of amputation of left lower extremity History of amputation of great toe Right History of cardiac defibrillator placement History of cataract removal with insertion of prosthetic lens (~03/02/18) Right History of gastric bypass (~07/01/14) History of cystoscopy (~12/25/13) History of tonsillectomy (~1979) History of orchiectomy, unilateral (~06/1999) Right Family History Mother Diabetes Father Diabetes Heart disease Hypertension Sister Diabetes Brother Diabetes Brother Diabetes Heart disease Hypertension Social History Smoking/Tobacco Use Status: Former Tobacco Use tobacco type: cigarettes Quit Date: 07/18/98 Tobacco: How many years used: 10 Smokeless tobacco user: chewing tobacco Quit status: considering quitting Smoking risk assessment performed?: Yes Alcohol Intake: current Alcohol Intake frequency: 0-2 drinks per day Alcohol type: hard liquor Drug use: Never Substance use type: does not use Adopted: No Caregiver/Support person: No Foster care: No Household members: significant other Housing: apartment Do you need help understanding health information?: Rarely current occupation: Unemployed Sexually active: Yes Do you think of yourself as: straight/heterosexual Current gender identity: male Do you feel safe at home: Yes (getting out of relationship) Do you feel safe in your relationship?: Yes Additional Social history: moving out Meds Allergies and Home Medications Allergies Allergy/AdvReac Type Severity Reaction Status Date / Time tramadol AdvReac Severe renal Verified 05/29/24 14:43 failure insulin aspart AdvReac Mild HypOglycemi Verified 05/29/24 14:43 a Poor Renal Function AdvReac Unknown renal Uncoded 05/29/24 14:43 failure Home Medications ?Medication ?Instructions ?Recorded ?Confirmed ?Type Amputation Compression Sleeve #1 ea 01/26/21 05/29/24 Rx fore arm cuff crutches #1 ea 06/07/21 05/29/24 Rx Left Outer Sleeve #1 ea 12/07/21 05/29/24 Rx acetaminophen 325 mg tablet 650 mg (2 x 325 mg) PO Q4H PRN 04/02/22 05/29/24 Rx fever or pain #180 tabs azelastine 137 mcg (0.1 %) nasal See Rx Instructions intranasal BID 04/02/22 05/29/24 Rx spray #30 mL flash glucose scanning reader #1 ea 04/02/22 05/29/24 Rx (FreeStyle Luis 2 [place]) flash glucose sensor (FreeStyle #6 ea 04/02/22 05/29/24 Rx Luis 2 Sensor kit) Right prosthetic socket #1 ea 05/13/22 05/29/24 Rx clobetasol 0.05 % topical spray 1 applic topical BID 1 week #59 mL 08/19/22 05/29/24 Rx fluticasone propionate 50 1 spray intranasal DAILY #16 grams 12/02/22 05/29/24 Rx mcg/actuation nasal spray,suspension (Allergy Relief (fluticasone)) blood-glucose meter,continuous #1 ea 01/25/23 05/29/24 Rx (View and Chewcom G7 Continuity Writer) glucometer WITH MATCHING TEST #1 ea 03/10/23 05/29/24 Rx STRIPS lancets #300 ea 03/10/23 05/29/24 Rx blood sugar diagnostic (Contour #100 ea 03/18/23 05/29/24 Rx Test Strips) pantoprazole 40 mg tablet,delayed 40 mg PO DAILY #90 tabs 05/22/23 05/29/24 Rx release ascorbic acid (vitamin C) 1,000 mg 500 mg (1/2 x 1,000 mg) PO DAILY 08/09/23 05/29/24 Rx tablet #90 tabs dapagliflozin propanediol 5 mg See Rx Instructions .Route 08/09/23 05/29/24 Rx tablet (Farxiga) .COMPLEX #28 tabs tiotropium bromide 2.5 See Rx Instructions .Route 10/10/23 05/29/24 Rx mcg/actuation mist for inhalation .COMPLEX #4 grams (Spiriva Respimat) Sleeve, Left BKA #1 ea 10/15/23 05/29/24 Rx Sleeve, Right BKA #1 ea 10/15/23 05/29/24 Rx pen needle, diabetic 31 gauge x #300 ea 10/20/23 05/29/24 Rx 3/16 (BD Ultra-Fine Mini Pen Needle) dupilumab 300 mg/2 mL subcutaneous 300 mg subcut Q2W 10/29/23 05/29/24 History syringe (Dupixent) BKA Prosthetics, B/L #2 ea 01/21/24 05/29/24 Rx clopidogrel 75 mg tablet 75 mg PO DAILY #30 tabs 01/26/24 05/29/24 Rx sodium bicarbonate 650 mg tablet 650 mg PO BID 01/27/24 05/29/24 History aspirin 81 mg tablet,delayed 81 mg PO DAILY #90 tabs 02/21/24 05/29/24 Rx release atorvastatin 10 mg tablet 10 mg PO DAILY #90 tabs 02/21/24 05/29/24 Rx carvedilol 12.5 mg tablet 12.5 mg PO BID #180 tabs 02/21/24 05/29/24 Rx cetirizine 10 mg tablet 10 mg PO DAILY #90 tabs 02/21/24 05/29/24 Rx cholecalciferol (vitamin D3) 25 25 mcg PO DAILY #90 caps 02/21/24 05/29/24 Rx mcg (1,000 unit) capsule cyanocobalamin (vitamin B-12) 1,000 mcg PO DAILY #90 caps 02/21/24 05/29/24 Rx 1,000 mcg capsule blood-glucose sensor (Dexcom G7 #3 ea 02/25/24 05/29/24 Rx Sensor device) insulin glargine 100 unit/mL (3 36 unit (0.36 mL) subcut QPM #15 mL 03/10/24 05/29/24 Rx mL) subcutaneous pen insulin lispro 100 unit/mL 1 sliding scale dose subcut 03/10/24 05/29/24 Rx subcutaneous pen (Humalog KwikPen USEASDIRECTD DM, E11.8 .. to jeep (U-100) Insulin) A1C < 7.5 #15 mL indapamide 2.5 mg tablet 5 mg PO DAILY 05/03/24 05/29/24 History furosemide 40 mg tablet 40 mg PO BID@0830,1600 #60 tabs 05/07/24 05/29/24 Rx levalbuterol tartrate 45 2 inh inhalation Q6H #15 grams 05/09/24 05/29/24 Rx mcg/actuation aerosol inhaler Exam Narrative Exam Narrative: 148/109, 90, 36.4, 16, 93% RA. HEENT atraumatic; neck supple, unable to read JVP; lungs diminished but seem clear; heart PMI hypodynamic, RRR w/o MRG; abdomen soft and NT; extremities s/p bilateral BKA, elastic wrap on stumps (not taken down); neuro Ox3, flat affect, moves all 4s Results Labs 05/29/24 15:25 05/29/24 15:25 Labs: Laboratory Results - last 24 hr 05/29/24 05/29/24 05/29/24 15:25 15:36 16:25 WBC 8.05 RBC 3.98 L Hgb 13.4 L Hct 39.0 L MCV 98 H MCH 33.7 H MCHC 34.4 RDW 14.5 H Plt Count 168 MPV 9.8 Immature Gran % 0.5 Neutrophils % 85.9 Lymphocytes % 4.7 Monocytes % 8.0 Eosinophils % 0.7 Basophils % 0.2 Nucleated RBC % 0.2 Absolute Neutrophils 6.91 H Absolute Lymphocytes 0.38 L Absolute Monocytes 0.64 Absolute Eosinophils 0.06 Absolute Basophils 0.02 Sodium 132 L Potassium 3.5 Chloride 90 L Carbon Dioxide 24.2 Anion Gap 17.8 H BUN 101 H* Creatinine 4.6 H* Est GFR (CKD-EPI 2020) 14.33 Glucose 255 H Calcium 8.8 Magnesium 2.4 Total Bilirubin 0.61 AST 18 ALT 29 Alkaline Phosphatase 132 H Ammonia 21 Troponin I 1153 H* 1222 H* NT-Pro-B Natriuret Pep > 07277 H Total Protein 6.7 Albumin 3.0 L COVID-19 Source Nasopharynx SARS-CoV-2 (PCR) Negative Influenza Type A (PCR) Negative Influenza Type B (PCR) Negative RSV (PCR) Negative 05/29/24 18:18 WBC RBC Hgb Hct MCV MCH MCHC RDW Plt Count MPV Immature Gran % Neutrophils % Lymphocytes % Monocytes % Eosinophils % Basophils % Nucleated RBC % Absolute Neutrophils Absolute Lymphocytes Absolute Monocytes Absolute Eosinophils Absolute Basophils Sodium Potassium Chloride Carbon Dioxide Anion Gap BUN Creatinine Est GFR (CKD-EPI 2020) Glucose Calcium Magnesium Total Bilirubin AST ALT Alkaline Phosphatase Ammonia Troponin I 1391 H* NT-Pro-B Natriuret Pep Total Protein Albumin COVID-19 Source SARS-CoV-2 (PCR) Influenza Type A (PCR) Influenza Type B (PCR) RSV (PCR) Last Vital Signs Temp 36.4 C L 05/29/24 14:36 Pulse 90 05/29/24 18:01 Resp 16 05/29/24 18:40 BP 148/109 H 05/29/24 18:01 Pulse Ox 93 05/29/24 17:20 Time Spent Time spent with Patient: 55-74 minutes Time was spent: preparing to see the patient(eg.review tests), obtaining and/or reviewing separately otained hiistory, ordering medications,tests, procedures, referring, communicating with other health manager care and indepentently interpreting results
[2024-05-29] MEDS: Sodium Bicarbonate 650 MG TAB PO (22:19)
[2024-05-29] MEDS: Carvedilol 12.5 MG TAB PO (22:20)
[2024-05-30] MEDS: Furosemide 100 MG/10 ML VIAL 80 MG IVP ×4 (00:35→23:26)
--- NOTE | 2024-05-30 00:59 | W.PC.ACHO ---
Registration Status: Primary Language: Preferred Language: ED Information & Data Chief Complaint GenMedical 05/29/24 15:25 Triage Note Pt complaining of weakness. 05/29/24 14:36 No abnormal pain, denies CP, SOB, ARNOLD, NVD. Pt afebrile. C/o decreased urine output, has stage 4 CKD. Not on dialysis. Normal appetite, normal fluid intake. Pt states I just want to sleep . Denies cough, recent fevers, or travel. Medical / Surgical History (Last Reviewed 05/29/24 @ 18:59 by Tu Elizondo MD) CKD stage 3 secondary to diabetes SARS-CoV-2 positive (~04/14/22) Dehydration Hypercalcemia (~02/21/22) Elevated troponin Positive cardiac stress test Edema of abdomen Neck pain Decreased range of motion (ROM) of right knee Psoriasis Carpal tunnel syndrome of left wrist Cubital bursitis of right elbow Diabetic foot ulcer associated with type 2 diabetes mellitus Hx: recurrent pneumonia Cervical neuropathy Tendonitis of long head of biceps brachii of right shoulder Bursitis of right shoulder Right shoulder pain Finger pain, left Nasal polyps Erectile dysfunction Testicular cancer (Last Reviewed 05/29/24 @ 18:59 by Tu Elizondo MD) S/P cardiac catheterization Hx of right BKA History of amputation of left lower extremity History of amputation of great toe History of cardiac defibrillator placement History of cataract removal with insertion of prosthetic lens (~03/02/18) History of gastric bypass (~07/01/14) History of cystoscopy (~12/25/13) History of tonsillectomy (~1979) History of orchiectomy, unilateral (~06/1999) Most Recent Vital Signs Temperature 36.4 C L 05/29/24 21:07 Pulse 93 H 05/29/24 21:07 Pulse Rhythm Regular 05/29/24 21:07 Pulse 94 H 05/29/24 18:40 Respiratory Rate 16 05/29/24 21:07 Respiratory Effort Normal, Non-Labored 05/29/24 21:07 Respiratory Depth Normal 05/29/24 21:07 Respiratory Pattern Normal 05/29/24 21:07 Blood Pressure 153/101 H 05/29/24 21:07 Blood Pressure Mean 120 05/29/24 18:01 Pulse Oximetry 96 05/29/24 21:07 Oxygen Delivery Method Room Air 05/29/24 21:07 Oxygen Flow Rate 0 05/29/24 21:07 Pain Level 4 05/29/24 21:07 Comment pt states he has chronic pain at 4/10 05/29/24 21:07 Allergies tramadol Adverse Reaction (Severe, Verified 05/29/24 14:43) renal failure CrCl <30 mL/minute: Immediate release: Increase dosing interval to every 12 hours; maximum: 200 mg/day. ER formulation should be avoided. insulin aspart Adverse Reaction (Mild, Verified 05/29/24 14:43) HypOglycemia Highly sensitive to fast-acting insulin; canNOT use typical RISS. Poor Renal Function Adverse Reaction (Unknown, Uncoded 05/29/24 14:43) renal failure Baseline GFR < 30! .. with CHANEL GFR @ 20 (-09/2022), ik Active Medications Generic Name Dose Route Start Last Admin Trade Name Freq PRN Reason Stop Dose Admin Carvedilol 12.5 mg 05/29/24 20:00 05/29/24 22:20 Carvedilol 12.5 Mg Tab PO 12.5 mg BID PHILIPP Administration Furosemide 80 mg 05/29/24 22:00 05/30/24 00:35 Furosemide 100 Mg/10 Ml Vial IVP 80 mg Q8H PHILIPP Administration Insulin Glargine 28 units 05/29/24 20:00 05/30/24 00:21 Insulin Glargine 300 Units/3 Ml Pen SC Not Given QPM PHILIPP Levalbuterol 2 puff 05/29/24 20:00 05/30/24 00:21 Levalbuterol Hfa 15 Gm Inh IH Not Given Q6H PHILIPP Sodium Bicarbonate 650 mg 05/29/24 20:00 05/29/24 22:19 Sodium Bicarbonate 650 Mg Tab PO 650 mg BID PHILIPP Administration IV IV Catheter Type [Left Peripheral IV Antecubital] IV Catheter Gauge [Left 20 Antecubital] Diet Orders Category Date Time Status Diabetes Consistent CHO/Low Na [DIET] Nutrition 05/30/24 Breakfast Active Diagnostics 05/30/24 05/30/24 05/29/24 Range/Units 06:00 05:35 18:18 WBC (4.4-10.8) 10^3/uL RBC (4.36-5.78) 10^6/uL Hgb (13.5-17.5) g/dL Hct (40.0-50.0) % MCV (80-95) fL MCH (27.0-33.0) pg MCHC (32.0-36.0) % RDW (11.8-14.1) % Plt Count (130-400) 10^3/uL MPV (8.0-11.0) fL Immature Gran % % Neutrophils % % Lymphocytes % % Monocytes % % Eosinophils % % Basophils % % Nucleated RBC % (0.0-0.3) % Absolute Neutrophils (1.2-6.7) 10^3/uL Absolute Lymphocytes (1.2-3.4) 10^3/uL Absolute Monocytes (0.1-0.8) 10^3/uL Absolute Eosinophils (0.0-0.7) 10^3/uL Absolute Basophils (0.0-0.2) 10^3/uL Sodium Pending (136-145) mmol/L Potassium Pending (3.5-5.1) mmol/L Chloride Pending (98-107) mmol/L Carbon Dioxide Pending (21.0-32.0) mmol/L Anion Gap Pending (3-11) mmol/L BUN Pending (7-18) mg/dL Creatinine Pending (0.70-1.30) mg/dL Est GFR (CKD-EPI 2020) Pending (mL/min/1.73m2) Glucose Pending (74-106) mg/dL Calcium Pending (8.5-10.1) mg/dL Magnesium (1.8-2.4) mg/dL Total Bilirubin (0.2-1.0) mg/dL AST (15-37) U/L ALT (16-63) U/L Alkaline Phosphatase (46-116) U/L Ammonia (11-32) umol/L Troponin I Pending 1391 H* (<or=76) ng/L NT-Pro-B Natriuret Pep (<300) pg/mL Total Protein (6.4-8.2) g/dL Albumin (3.4-5.0) g/dL COVID-19 Source SARS-CoV-2 (PCR) (Negative) Influenza Type A (PCR) (Negative) Influenza Type B (PCR) (Negative) RSV (PCR) (Negative) 11/12/24 11/12/24 11/12/24 Range/Units 16:25 15:36 15:25 WBC 8.05 (4.4-10.8) 10^3/uL RBC 3.98 L (4.36-5.78) 10^6/uL Hgb 13.4 L (13.5-17.5) g/dL Hct 39.0 L (40.0-50.0) % MCV 98 H (80-95) fL MCH 33.7 H (27.0-33.0) pg MCHC 34.4 (32.0-36.0) % RDW 14.5 H (11.8-14.1) % Plt Count 168 (130-400) 10^3/uL MPV 9.8 (8.0-11.0) fL Immature Gran % 0.5 % Neutrophils % 85.9 % Lymphocytes % 4.7 % Monocytes % 8.0 % Eosinophils % 0.7 % Basophils % 0.2 % Nucleated RBC % 0.2 (0.0-0.3) % Absolute Neutrophils 6.91 H (1.2-6.7) 10^3/uL Absolute Lymphocytes 0.38 L (1.2-3.4) 10^3/uL Absolute Monocytes 0.64 (0.1-0.8) 10^3/uL Absolute Eosinophils 0.06 (0.0-0.7) 10^3/uL Absolute Basophils 0.02 (0.0-0.2) 10^3/uL Sodium 132 L (136-145) mmol/L Potassium 3.5 (3.5-5.1) mmol/L Chloride 90 L (98-107) mmol/L Carbon Dioxide 24.2 (21.0-32.0) mmol/L Anion Gap 17.8 H (3-11) mmol/L BUN 101 H* (7-18) mg/dL Creatinine 4.6 H* (0.70-1.30) mg/dL Est GFR (CKD-EPI 2020) 14.33 (mL/min/1.73m2) Glucose 255 H (74-106) mg/dL Calcium 8.8 (8.5-10.1) mg/dL Magnesium 2.4 (1.8-2.4) mg/dL Total Bilirubin 0.61 (0.2-1.0) mg/dL AST 18 (15-37) U/L ALT 29 (16-63) U/L Alkaline Phosphatase 132 H (46-116) U/L Ammonia 21 (11-32) umol/L Troponin I 1222 H* 1153 H* (<or=76) ng/L NT-Pro-B Natriuret Pep > 79650 H (<300) pg/mL Total Protein 6.7 (6.4-8.2) g/dL Albumin 3.0 L (3.4-5.0) g/dL COVID-19 Source Nasopharynx SARS-CoV-2 (PCR) Negative (Negative) Influenza Type A (PCR) Negative (Negative) Influenza Type B (PCR) Negative (Negative) RSV (PCR) Negative (Negative) [facility] Documentation Fingerstick Glucose Start: 05/29/24 19:17 Freq: .AC Status: Active Protocol: Activity Type Activity Date Activity User E-sign Co-sign Detail Recorded Client Recorded Date Recorded By Document 05/29/24 20:23 BKG DAEMON(3) [id number] 05/29/24 20:24 BKG DAEMON(4) Intake and Output - 24 Hour Total 05/29/24 14:27 thru 05/29/24 21:07 Output Total 1250 Balance -1250 Weight 157.4 kg Output: Urine 1250 Other: Urine Color Pale Yellow Urine Appearance Clear # Voids 1 Urinary Catheter Urinary Catheter Date of 05/29/24 Insertion [Urethral (Quigley)] Time of insertion [Urethral ( 20:20 Quigley)] Falls Risk Assessment History of Falls Previous History 05/29/24 21:07 Contributing Factors Impairments 05/29/24 21:07 Ambulatory Aids Uses ambulatory device + 05/29/24 21:07 Tubes/Lines With any additional score 05/29/24 21:07 Gait Evaluation W/any additional score 05/29/24 21:07 Cognition No cognitive impairment 05/29/24 21:07 Fall Total Score 88 05/29/24 21:07 Level of Risk Maximum Risk 05/29/24 21:07 Problems (Last Reviewed 05/29/24 @ 18:59 by Tu Elizondo MD) CHF (congestive heart failure) (Chronic) v v v v v v v v v Sending and/or Receiving Nurses: Please use comment section below to note any information pertinent to the patient hand-off not included above. Information / Comments: Report received from: Lalita 2031 54 yo Male Severe CHF w/ EF 25-30% Hx of CKD, CAD, DM, Bilat BKA 1month ago here for the same thing, fluid overload. No massive changes since then. Last 4 days difficulty moving, weakness, overall swollen, abdomen tight and swollen. NSR w/ frequent PVCs, RBBB VSS: HR 80s-100s BP 140-160s sys over 90s diastolic RR 17 no SOB SPO2 93-95 on RA 20g LAC Chest Xray negative 16fr quigley placed, prostate enlarged gotten 80mg lasix, total of 1300 out in 3 occurrences K+ 3.5 na 132 13.4 hgb wbc negative Glucose 255 albumin 3 BNP >35,000 trops uptrending, most recent 1391
[2024-05-30] MEDS: Lidocaine 2% Jelly 6 ML SYR TP ×3 (04:43→19:47)
[2024-05-30 07:25] VITALS: BP 127/89; PULSE 84; RESP 18; TEMP 35.8; O2SAT 97
[2024-05-30 07:55] LABS: Anion Gap 16.4 mmol/L (3-11); CO2 26.6 mmol/L (21.0-32.0); Calcium 8.8 mg/dL (8.5-10.1); Chloride 91 mmol/L (98-107); Estimated GFR 14.33 (mL/min/1.73m2); Glucose 244 mg/dL (74-106); Sodium 134 mmol/L (136-145)
[2024-05-30 07:58] LABS: Troponin I 1381 ng/L (<or=76)
[2024-05-30 08:00] LABS: BUN 108 mg/dL (7-18)
[2024-05-30 08:01] LABS: CREATININE 4.6 mg/dL (0.70-1.30)
[2024-05-30] MEDS: Levalbuterol HFA 15 GM INH 2 PUFF IH ×2 (08:21→19:47)
[2024-05-30] MEDS: Tiotropium Bromide-Respimat 10 PUFF INH 2 PUFF IH (08:22)
[2024-05-30] MEDS: Pantoprazole 40 MG TABCR PO (08:37)
[2024-05-30] MEDS: Clopidogrel 75 MG TAB PO (08:37)
[2024-05-30] MEDS: Cetirizine 10 MG TAB PO (08:37)
[2024-05-30] MEDS: Cholecalciferol (Vitamin D3) 1,000 UNIT TAB 1000 UNITS PO (08:37)
[2024-05-30] MEDS: Ascorbic Acid 500 MG TAB PO (08:37)
[2024-05-30] MEDS: Carvedilol 12.5 MG TAB PO ×2 (08:37→19:46)
[2024-05-30] MEDS: Sodium Bicarbonate 650 MG TAB PO ×2 (08:37→19:46)
[2024-05-30] MEDS: Cyanocobalamin 500 MCG TAB 1000 MCG PO (08:37)
[2024-05-30] MEDS: Aspirin E.C. 81 MG TABEC PO (08:37)
[2024-05-30] MEDS: Atorvastatin 10 MG TAB PO (08:37)
[2024-05-30] MEDS: Insulin Aspart 300 UNITS/3 ML PEN SC ×3 (08:38→16:50)
--- NOTE | 2024-05-30 08:44 | PDOC.CMIN ---
Date of service: 05/30/24 Time of Service: 08:44 Care Management Initial Assmt Initial Assessment Reason for Hospitalization: CHF Functional Status/Living Situation Patient Presentation: Leroy was sitting up in bed when CM met with him. He was polite and easily engaged with CM, known to him from previous admissions. Leroy was admitted again with CHF. He was hospitalized last month for the same reason and weighed 157 Kg at discharge. On readmission, his weight was 165 Kg with bilateral edema in his stumps. He also has elevated troponins which are not felt to be related to ACS per [facility]. Leroy lives alone in an apartment in [facility]. 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 He is independent with ADLs and does not receive any community services. Leroy had an appointment scheduled with his record cutter at [facility] tomorrow. He changed the meeting to a tele-visit for tomorrow and requested CM send clinicals to his physician, which was done. Town of Residence: [place] Resides with: Alone Employment Status: Employed Instrumental Activities of Daily Living (ADLs): Independent Medications Medication Management: No Issues/Barriers identified Advance Directives Advance Directives: Do you have an Advance Directive: N 10/06/23 15:17 AD On File at [facility]: N 10/06/23 15:17 Date Asked 05/29/24 05/29/24 16:20 AD Date Reviewed COLST On File at [facility] COLST Date Scanned Code Status Resuscitation Status Full Code Insurance Coverage/Financial Issues Insurance: Medicare Medicaid Care Team Visit Care Team Role Provider Type Candice Perez DO Primary Care Provider OSTEOPATHIC DOCTOR Lora Ott RDN, [facility] Other Providers ELECTRICAL AND [employer] MECHANIC Miguelina Gongora Other Providers ELECTRICAL AND [employer]IO AIRCRAFT MECHANICRHIANNA García RDN Other Providers ELECTRICAL [employer]CRAFT MECHANIC Sherri Awan MD Emergency Provider [facility] STAFF PHYSICIAN Tu Elizondo MD Admit Provider [facility] STAFF PHYSICIAN Attending Provider Discharge Potential Discharge Needs: PCP F/U Appt Anticipated Barriers to Discharge: None Identified Patient/Family Education Needs: Review discharge instructions, discuss Ask Me Three Transportation: RCT Plan: Anticipate Leroy will be discharged home, possibly with new home health services, when medically stable. He will follow up with his PCP and plan of care and transport with family. CM will follow and continue to assess for discharge needs. PFSH All Active Problems (Updated 05/30/24 @ 13:51 by Koby Cuello) Hypokalemia (Acute) Amputat leg, bilat-complicated (Acute) Non-ST elevation [place] (NSTEMI) (Acute) Anemia (Chronic) CKD (chronic kidney disease) (Chronic) Edema (Acute) CHF (congestive heart failure) (Chronic) PDR (proliferative diabetic retinopathy) (Acute ~05/25/24) 05/25/24 [facility] Anemia in CKD (chronic kidney disease) (Acute) Glucosuria (Acute) Proteinuria (Acute) Acute systolic (congestive) heart failure (Acute) Edema of abdominal wall (Acute) Edema of right lower extremity (Chronic) Fluctuating 2' CHF, fluid overload/diuresis Edema of left lower extremity (Chronic) Fluctuating 2' CHF, fluid overload/diuresis At risk for fluid and electrolyte imbalance (Acute) Long Hx 2' med changes, fluid overload. At risk for medication error (Acute) 2' ED, Hosp, Specialists, H&R, HH .. and transportation/delivery difficulties Type 2 diabetes mellitus with proliferative diabetic retinopathy without macular edema, bilateral (Acute) COVID (Acute ~06/22/23) Edema (Acute) Hyperphosphatemia associated with renal failure (Acute) Decreased ambulation status (Acute) Scooter, for outside .. 4-wheel, for hill, grass & dog.. getting to basement shop and garage and acreage.. HCM and QOL .. and working for [employer]. CKD (chronic kidney disease) stage 4, GFR 15-29 ml/min (Acute) GFR @ 19-20 with elevated A1C, but @ risk of hypoglycemia.. CHANEL (acute kidney injury) (Acute) Improved with diuresis and hydration @ home, but high risk for repeat episodes Hypertension associated with diabetes (Acute) Persistent proteinuria associated with type 2 diabetes mellitus (Acute) Hyperglycemia due to diabetes mellitus (Acute) Diabetes mellitus with complication in adult patient (Chronic) Type 2 diabetes mellitus with diabetic polyneuropathy (Acute) Iron deficiency (Acute) History of anemia (Chronic) Coronary artery disease (Chronic) w/ dilated cardiomyopathy and (+) stress test ++> PCI/Stenting, 12/29/21 Ischemic cardiomyopathy (Chronic) w/ (+) stress test and PCI/Stenting, 12/29/21 ICD (implantable cardioverter-defibrillator) in place (Acute) ICD, single lead, [employer] Visia 04/27/2018 [place], [place] Elevated brain natriuretic peptide (BNP) level (Acute) thought to be near baseline, but unclear Hx Low serum albumin (Chronic) Protein WNL per 02/2022 labs Chronic systolic CHF (congestive heart failure) (Acute) EF 20-25% per Jul 2023 Echo ([facility]) Pulmonary hypertension (Acute) 12/29/21. [id number]. Noted during Cardiac cath, [facility]. NYHA Class IV Dermatitis, unspecified (Acute ~11/2021) 12/07/21 Dermatology Chronic posttraumatic stress disorder (Acute) History of posttraumatic stress disorder (PTSD) (Acute) Long Hx, Restarted with counselor, Madison Harris. 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 Rt, November 2020. Lft, 2018 (?) GERD (gastroesophageal reflux disease) (Chronic) PPI COPD (chronic obstructive pulmonary disease) (Chronic) Hx smoker (~10pkyr), PFTs (04/17/21). Disability examination (Acute) PFTs, 04/2021 for Disability 2' COPD. Housing or economic problem (Acute) Nasal polyp (Acute) Pt report based on past ENT 06/02/[address] Haque - surgical correction planned Allergic rhinitis due to allergen (Acute) Nasal turbinate hypertrophy (Acute) Other chronic sinusitis (Acute) Deviated nasal septum (Acute) Seasonal allergies (Acute) Corneal opacification (Acute) OS Proliferative retinopathy of both eyes (Acute) Full PRP OD Vitamin D deficiency (Acute) Secondary hyperparathyroidism (Acute) Medical History CKD stage 3 secondary to diabetes CKD4, October 2022! 08/2019 Cr 1.74 ... Elevated in 2020 2' Inf/ABx/HyperGly .. [ ] re-check 03/2021! SARS-CoV-2 positive (~04/14/22) Dehydration Hypercalcemia (~02/21/22) Elevated troponin Positive cardiac stress test 2021 .. Cath, with stent placement + 12/29/21. Edema of abdomen Neck pain acute .. due to sleeping on sofa?? coughing? Decreased range of motion (ROM) of right knee Flexion ok; Extension is difficult .. Continues to work with PT Psoriasis Carpal tunnel syndrome of left wrist Cubital bursitis of right elbow Diabetic foot ulcer associated with type 2 diabetes mellitus RESOLVED with amputation. 09/30/20-R heel w/cellulitis-Dr Kevin,DPM 10/16/20 Debridement by Podiatry 10/30/20 [facility]ascular - RIGHT Heel Ulcer - cont close wound care by Podiatry Hx: recurrent pneumonia walking pneumonia most vines x 3 years Cervical neuropathy Tendonitis of long head of biceps brachii of right shoulder Bursitis of right shoulder Right shoulder pain Acute on chronic issue: now with elbow and hand pain (ulnar), with tingling. Finger pain, left Could this be gout? No injury. Trial Naproxen. Nasal polyps Erectile dysfunction Testicular cancer Surgical History S/P cardiac catheterization 12/29/21 [facility] (Dr. Jerry Ramírez). PCI (via R radial artery) of mid-LAD. Balloon angioplasty and lithotripsy. 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 History of amputation of left lower extremity History of amputation of great toe Right History of cardiac defibrillator placement History of cataract removal with insertion of prosthetic lens (~03/02/18) Right History of gastric bypass (~07/01/14) History of cystoscopy (~12/25/13) History of tonsillectomy (~1979) History of orchiectomy, unilateral (~06/1999) Right Family History Mother Diabetes Father Diabetes Heart disease Hypertension Sister Diabetes Brother Diabetes Brother Diabetes Heart disease Hypertension Social History Smoking/Tobacco Use Status: Former Tobacco Use tobacco type: cigarettes Quit Date: 07/18/98 Tobacco: How many years used: 10 Smokeless tobacco user: chewing tobacco Quit status: considering quitting Smoking risk assessment performed?: Yes Alcohol Intake: current Alcohol Intake frequency: 0-2 drinks per day Alcohol type: hard liquor Drug use: Never Substance use type: does not use Adopted: No Caregiver/Support person: No Foster care: No Household members: significant other Housing: apartment Do you need help understanding health information?: Rarely current occupation: Unemployed Sexually active: Yes Do you think of yourself as: straight/heterosexual Current gender identity: male Do you feel safe at home: Yes (getting out of relationship) Do you feel safe in your relationship?: Yes Additional Social history: moving out SDOH(Care Management) Screening Will the Patient Participate in the Screening?: Yes Do you worry about having a steady place to live?: no In the past 12 months, have you had to go without electric, gas, oil or water in your home?: no Have you or anyone in your house had to go without enough food to eat?: no Has lack of transportation kept you from medical appointments or from doing things needed for daily living?: no Has anyone in your support network made you feel unsafe for any reason?: no Social Determinants of Health Comments([facility] Details): RCT for transportation
[2024-05-30] MEDS: Fluticasone NASAL SPRAY 16 GM BTL NS (09:09)
[2024-05-30 09:10] VITALS: TEMP 36.8
--- NOTE | 2024-05-30 11:31 | W.NUTRFU ---
Date of service: 05/30/24 Time of Service: 09:30 Nutrition Note NOTE: Received nutrition consult regarding diabetes education and mgt. Patient known to me from prior admissions. A1c of 7.3% on 05/04/24. - historically in the 8's mainly. FPG 05/30 was 244, pending for today (05/31). PT reports lows in the mornings often (gets into the 70's/80's) if he doesn't snack at night. He requests grahams and peanut butter and fruit at evening nourishment - this will be provided. Sodium has been low - approved his request for 2 sausage links or koch in the morning as he is currently ordered for low sodium diet. ordered for 28u lantus pm and sensitive sliding scale at meals TID. Pt takes 36u basal insulin at home Would recommend more aggressive gycemic control with increase in lantus by 3u q 3 days until FPG is <140. Would also suggest moderate sliding scale for corrections and consideration of additional carbohyrdrate coverage at meals with insulin aspart 1u:15g carbohydrate - Pt tends to order more than recommended carbohydrate amount at meals with dinner on 05/30 over 100grams. Would also suggest a vitamin D lab as he has a history of deficiency and his kidney fxn has detriorated to the point where active vitamin D (calcitriol) would be indicated. Will monitor glucose, weight, intake, labs. Time Spent in Nutritional Counseling and Treatment: 10 min
[2024-05-30] MEDS: Heparin 5,000 UNITS/ML VIAL 5000 UNITS SC ×2 (12:14→23:26)
--- NOTE | 2024-05-30 12:32 | W.PM.PROGNOT ---
Date of Service Date of service: 05/30/24 Time of Service: 12:32 Assessment and Plan Assessment and plan (1) Acute systolic (congestive) heart failure: Status: Acute Assessment and plan: Responding to IV diuresis, negative 2.5 liters since admission overnight. Continue furosemide 80mg q8hr resume outpatient thiazide indipamide as this may help potentiate the loop continue to monitor I/Os (2) Elevated troponin: Assessment and plan: In setting of stage 4 CKD and CHF. No chest pain or ischemic EKG changes Case reviewed with [facility] cardiology who felt not c/w ACS. Follow until trending down, reassess if he gets chest pain (3) Coronary artery disease: Status: Chronic Assessment and plan: He is on DAPT. I'm not sure of indication but will continue this along with atorvastatin. Qualifiers: Coronary Disease-Associated Artery/Lesion type: [place] artery [place] vs. transplanted heart: [place] heart Associated angina: without angina Qualified Code(s): I25.10 - Atherosclerotic heart disease of [place] coronary artery without angina pectoris (4) Diabetes mellitus with complication in adult patient: Status: Chronic Assessment and plan: Blood sugars high, titrate up glargine, continue sliding scale (5) CKD (chronic kidney disease) stage 4, GFR 15-29 ml/min: Status: Acute Assessment and plan: Stable, close to recent baseline. Continue to monitor. Has tele f/u with [facility] nephrology 05/31 (6) COPD (chronic obstructive pulmonary disease): Status: Chronic Assessment and plan: Not active, continue outpatient inhalers. (7) Hypokalemia: Status: Acute Assessment and plan: With diuresis, replace orally (8) DVT prophylaxis: Status: Resolved Assessment and plan: heparin subcut, BID with CKD Subjective Subjective Patient reports: no new complaints, tolerating a regular diet and voiding w/o difficulty; denies nausea or fever Interval history since last seen: Feels about the same. he is still short of breath and his legs feel tight with fluid. He is urinating with furosemide. Exam Narrative Exam Narrative: Gen: Alert and oriented, appears tired but NAD. Lungs diminished diffusely but no rales. Heart RRR w/o MRG; abdomen soft and NT; extremities s/p bilateral BKA with 2+ bilateral edema to stumps. Objective Last Vital Signs Temp 36.8 C 05/30/24 09:10 Pulse 84 05/30/24 07:25 Resp 18 05/30/24 07:25 BP 127/89 05/30/24 07:25 Pulse Ox 97 05/30/24 07:25 Laboratory Results - last 24 hr 05/29/24 05/29/24 05/29/24 15:25 15:36 16:25 WBC 8.05 RBC 3.98 L Hgb 13.4 L Hct 39.0 L MCV 98 H MCH 33.7 H MCHC 34.4 RDW 14.5 H Plt Count 168 MPV 9.8 Immature Gran % 0.5 Neutrophils % 85.9 Lymphocytes % 4.7 Monocytes % 8.0 Eosinophils % 0.7 Basophils % 0.2 Nucleated RBC % 0.2 Absolute Neutrophils 6.91 H Absolute Lymphocytes 0.38 L Absolute Monocytes 0.64 Absolute Eosinophils 0.06 Absolute Basophils 0.02 Sodium 132 L Potassium 3.5 Chloride 90 L Carbon Dioxide 24.2 Anion Gap 17.8 H BUN 101 H* Creatinine 4.6 H* Est GFR (CKD-EPI 2020) 14.33 Glucose 255 H Calcium 8.8 Magnesium 2.4 Total Bilirubin 0.61 AST 18 ALT 29 Alkaline Phosphatase 132 H Ammonia 21 Troponin I 1153 H* 1222 H* NT-Pro-B Natriuret Pep > 89121 H Total Protein 6.7 Albumin 3.0 L COVID-19 Source Nasopharynx SARS-CoV-2 (PCR) Negative Influenza Type A (PCR) Negative Influenza Type B (PCR) Negative RSV (PCR) Negative 05/29/24 05/30/24 18:18 06:00 WBC RBC Hgb Hct MCV MCH MCHC RDW Plt Count MPV Immature Gran % Neutrophils % Lymphocytes % Monocytes % Eosinophils % Basophils % Nucleated RBC % Absolute Neutrophils Absolute Lymphocytes Absolute Monocytes Absolute Eosinophils Absolute Basophils Sodium 134 L Potassium 3.0 L Chloride 91 L Carbon Dioxide 26.6 Anion Gap 16.4 H BUN 108 H* Creatinine 4.6 H* Est GFR (CKD-EPI 2020) 14.33 Glucose 244 H Calcium 8.8 Magnesium Total Bilirubin AST ALT Alkaline Phosphatase Ammonia Troponin I 1391 H* 1381 H* NT-Pro-B Natriuret Pep Total Protein Albumin COVID-19 Source SARS-CoV-2 (PCR) Influenza Type A (PCR) Influenza Type B (PCR) RSV (PCR) PAWSS Have you Been Recently Intoxicated or Drunk Within the Last 30 days?: Yes Have you Ever Experienced Previous Episodes of Alcohol Withdrawal?: No Have you ever Experienced Withdrawal Seizures?: No Have you ever Experienced Delirium Tremens(DT)s?: No Have you ever undergone Alcohol Rehabilitation Treatment (i.e, inpt ot outpatient treatment programs)?: No Have you ever Experienced Blackouts?: No Have you ever Combined Alcohol with other Downers within the last 90 days?: No Have you ever Combined Alcohol with any other Substance of Abuse during the last 90 days?: No Evidence of Increased Autonomic Activity (i.e. HR>120, tremor, sweating, agitation, nausea)?: No Result: 1 Time Spent with Patient Time Spent with Patient: 35-49 minutes Time was spent: preparing to see the patient(eg.review tests), obtaining and/or reviewing separately otained hiistory, ordering medications,tests, procedures, referring, communicating with other health prompt care rn, indepentently interpreting results, counseling the patient and care coordination
--- NOTE | 2024-05-30 12:35 | PHACLINREV_ITS ---
Pharmacy Admission Review Admission Clinical Review Admission Pharmacy Review: tramadol Adverse Reaction (Severe, Verified 05/29/24 14:43) renal failure insulin aspart Adverse Reaction (Mild, Verified 05/29/24 14:43) HypOglycemia Poor Renal Function Adverse Reaction (Unknown, Uncoded 05/29/24 14:43) renal failure Resuscitation Status Full Code Height 4 ft 11 in Weight 157.4 kg Pharmacy Admission Review Renal Dosing Renal Dosing: BUN 108 mg/dL (7-18) H* 05/30/24 06:00 Creatinine 4.6 mg/dL (0.70-1.30) H* 05/30/24 06:00 Medications needing adjustments: Intervened (CrCl 22.12 mL/min, BUN increased from 101) List of meds needing interventions: Decreased cetirizine from 10mg daily to 5mg daily due to CrCl < 30 Anticoagulation Anticoagulation: Hgb 13.4 g/dL (13.5-17.5) L 05/29/24 15:25 Hct 39.0 % (40.0-50.0) L 05/29/24 15:25 Plt Count 168 10^3/uL (130-400) 05/29/24 15:25 Creatinine 4.6 mg/dL (0.70-1.30) H* 05/30/24 06:00 DVT Prophylaxis: Intervened (Spoke with provider during morning meeting as no order was put in. Provider then ordered heparin) Medications: Heparin (q12h) Relevant Labs Relevant Labs: Sodium 134 mmol/L (136-145) L 05/30/24 06:00 Potassium 3.0 mmol/L (3.5-5.1) L 05/30/24 06:00 Chloride 91 mmol/L (98-107) L 05/30/24 06:00 Magnesium 2.4 mg/dL (1.8-2.4) 05/29/24 15:25 Electrolytes, C-Reactive P, ESR: Reviewed (Na increased from 132, K 3 - provider aware) DM Control DM Control: Glucose 244 mg/dL (74-106) H 05/30/24 06:00 Finger Stick Blood Glucose 247 1214 Finger Stick Blood Glucose 246 1119 Finger Stick Blood Glucose 246 1119 Finger Stick Blood Glucose 229 0838 Finger Stick Blood Glucose 229 0815 Finger Stick Blood Glucose 229 0815 DM Control: Intervened Insulin Dosing, Diabetic Medication: Patient has order for SS insulin, 28 units glargine at bedtime and a patients own order for Farxiga (has not been brought in from home). Informed provider that last nights Lantus dose had not been given, reason listed as med not available. Glucose last night was 246 at 2023 and 244 this morning at 0600. Nursing aware that automation and controls supervisor can come into pharmacy after hours to get pen. Cardiac Review Cardiac Review: Troponin I 1381 ng/L (<or=76) H* 05/30/24 06:00 NT-Pro-B Natriuret Pep > 81535 pg/mL (<300) H 05/29/24 15:25 BP, HR, EF%: Reviewed (HR and BP WNL, troponin slightly decreased from 1391 yesterday at 1818) List meds needing interventions: Has order for carvedilol 12.5mg PO BID, furosemide 80mg IVP q8h and indapamide 5mg daily QTc Review QTc: Reviewed (492 from 05/29/24) IV to PO Switch IV Medications: Reviewed (furosemide) Home Meds Home Med List reviewed: Intervened Relevent Home Meds Not ordered & why?: Dupixent (q2 week injection) Order had not originally been put in for patients indapamide. Spoke with provider who then put in order. Changed two orders to patients own med (azelastine nasal spray and Farxiga). Asked nurse to see if these could be brought in for the patient, waiting to hear back. Per nursing patient uses clobetasol cream as needed. Updated home med list and changed order to PRN. Current Meds Current Medication Order Review: Intervened Comments: Added IV admission order set Changed clobetasol to PRN (see above)
[2024-05-30] MEDS: Potassium Chloride 20 MEQ TABCR 40 MEQ PO (13:25)
[2024-05-30 15:19] VITALS: BP 150/81; PULSE 84; RESP 18; TEMP 36; O2SAT 90
[2024-05-30 19:12] VITALS: BP 131/95; PULSE 85; RESP 19; TEMP 36.2; O2SAT 95
[2024-05-30] MEDS: Potassium Chloride 20 MEQ TABCR PO (19:46)
[2024-05-30] MEDS: Acetaminophen 325 MG TAB 650 MG PO (19:46)
[2024-05-30] MEDS: Insulin Glargine 300 UNITS/3 ML PEN 28 UNITS SC (19:48)
[2024-05-30] MEDS: Normal Saline Flush 10 ML SYR IVP (19:48)
[2024-05-30 20:00] VITALS: PULSE 85
[2024-05-30] MEDS: Melatonin 3 MG TAB 6 MG PO (23:00)
[2024-05-30] MEDS: Lidocaine 5% Patch 1 PATCH TP (23:00)
[2024-05-31] MEDS: Levalbuterol HFA 15 GM INH 2 PUFF IH ×3 (02:03→19:29)
[2024-05-31] MEDS: Lidocaine 2% Jelly 6 ML SYR TP ×2 (04:47→21:16)
[2024-05-31 07:17] VITALS: BP 120/87; PULSE 78; RESP 20; TEMP 35; O2SAT 96
[2024-05-31] MEDS: Pantoprazole 40 MG TABCR PO (07:55)
[2024-05-31] MEDS: Ascorbic Acid 500 MG TAB PO (07:55)
[2024-05-31] MEDS: Cholecalciferol (Vitamin D3) 1,000 UNIT TAB 1000 UNITS PO (07:55)
[2024-05-31] MEDS: Clopidogrel 75 MG TAB PO (07:55)
[2024-05-31] MEDS: Cetirizine 10 MG TAB 5 MG PO (07:55)
[2024-05-31] MEDS: Carvedilol 12.5 MG TAB PO ×2 (07:55→21:08)
[2024-05-31] MEDS: Cyanocobalamin 500 MCG TAB 1000 MCG PO (07:55)
[2024-05-31] MEDS: Furosemide 100 MG/10 ML VIAL 80 MG IVP ×3 (07:55→23:51)
[2024-05-31] MEDS: Aspirin E.C. 81 MG TABEC PO (07:55)
[2024-05-31] MEDS: Atorvastatin 10 MG TAB PO (07:55)
[2024-05-31] MEDS: Insulin Aspart 300 UNITS/3 ML PEN SC ×3 (07:55→17:23)
[2024-05-31] MEDS: Fluticasone NASAL SPRAY 16 GM BTL NS (07:56)
[2024-05-31 08:41] LABS: Anion Gap 11.5 mmol/L (3-11); CO2 28.5 mmol/L (21.0-32.0); Calcium 8.5 mg/dL (8.5-10.1); Chloride 92 mmol/L (98-107); Estimated GFR 13.96 (mL/min/1.73m2); Glucose 232 mg/dL (74-106); Magnesium 2.5 mg/dL (1.8-2.4); Potassium 3.4 mmol/L (3.5-5.1); Sodium 132 mmol/L (136-145)
--- NOTE | 2024-05-31 09:20 | PDOC.CMPRO ---
Date of service: 05/31/24 Time of Service: 09:20 Care Management Progress Note Progress Note Text Progress Note Text: Leroy was lying in bed when CM met with him. He had been sleeping and was not inclined to engage in conversation. Leroy has a tele-health appointment this afternoon with his beaming machine operator at [facility]. Clinicals were faxed yesterday in preparation for the visit. Clinically Leroy is showing a bit of improvement. His vital signs are stable and he is saturating in the 90s on room air. Leroy's weight was recorded as 157.4 Kg 2 days ago and was noted to be 161.2 today; no weight was recorded yesterday. Leroy has been receiving IV Lasix Q 8h and is diuresing well. His urine output was almost 3L yesterday and is >1100 ml so far today. Discharge Potential Discharge Needs: PCP F/U Appt Anticipated Barriers to Discharge: None Identified Patient/Family Education Needs: Review discharge instructions, discuss Ask Me Three Transportation: RCT Plan: Anticipate Leroy will be discharged home, possibly with new home health services, when medically stable. He will follow up with his PCP and plan of care and transport with family. CM will follow and continue to assess for discharge needs. SDOH(Care Management) Screening Will the Patient Participate in the Screening?: Yes Do you worry about having a steady place to live?: no In the past 12 months, have you had to go without electric, gas, oil or water in your home?: no Have you or anyone in your house had to go without enough food to eat?: no Has lack of transportation kept you from medical appointments or from doing things needed for daily living?: no Has anyone in your support network made you feel unsafe for any reason?: no Social Determinants of Health Comments(SDOH Details): RCT for transportation
[2024-05-31] MEDS: Potassium Chloride 20 MEQ TABCR PO ×2 (09:38→21:08)
[2024-05-31] MEDS: Sodium Bicarbonate 650 MG TAB PO ×2 (09:38→21:08)
[2024-05-31 10:50] LABS: Abs Immature Grans 0.03 10^3/uL (0.0-0.06); Absolute Basophil Count 0.03 10^3/uL (0.0-0.2); Absolute Lymphocyte Count 0.49 10^3/uL (1.2-3.4); Absolute Monocyte Count 0.74 10^3/uL (0.1-0.8); Absolute Neutrophil Count 8.12 10^3/uL (1.2-6.7); Basophils % 0.3 %; Eosinophils % 2.1 %; HCT 38.5 % (40.0-50.0); Immature Grans % 0.3 %; Lymphocytes % 5.1 %; MCH 33.5 pg (27.0-33.0); MCHC 33.8 % (32.0-36.0); MCV 99 fL (80-95); MPV 10.2 fL (8.0-11.0); Monocytes % 7.7 %; Neutrophils % 84.5 %; Platelet Count 151 10^3/uL (130-400); RBC 3.88 10^6/uL (4.36-5.78); RDW 15.2 % (11.8-14.1); RDW-SD 53.9 fL; WBC 9.61 10^3/uL (4.4-10.8)
[2024-05-31 11:11] LABS: BUN 106 mg/dL (7-18)
[2024-05-31 11:12] LABS: CREATININE 4.7 mg/dL (0.70-1.30); Troponin I 1039 ng/L (<or=76)
[2024-05-31] MEDS: Patch Removal 1 EACH TP (12:53)
[2024-05-31] MEDS: Heparin 5,000 UNITS/ML VIAL 5000 UNITS SC ×2 (12:56→23:51)
[2024-05-31 14:53] VITALS: BP 128/89; PULSE 83; RESP 16; TEMP 35.9; O2SAT 92
--- NOTE | 2024-05-31 16:42 | CHAPLAIN ---
Leroy was sitting up in bed when I visited. I explained my role and offered support. He acknowledged what I said but was not interested in further conversation.
--- NOTE | 2024-05-31 17:05 | PGE_ITS ---
Date of Service Date of service: 05/31/24 Time of Service: 17:06 Assessment and Plan Assessment and plan (1) Acute systolic (congestive) heart failure: Status: Acute Assessment and plan: Responding to IV diuresis, negative 2.5 liters since admission overnight. Continue furosemide 80mg q8hr resume outpatient thiazide indipamide as this may help potentiate the loop continue to monitor I/Os 05/31/2024 Patient continues to have good diuresis with balance loss over 1600 cc last 24 hours. (2) Elevated troponin: Assessment and plan: In setting of stage 4 CKD and CHF. No chest pain or ischemic EKG changes [place] [facility] who felt not c/w ACS. Follow until trending down, reassess if he gets chest pain 05/31/24 Troponins continue to trend down. Pt does not complain of any chest pain. I did review the notes from cardiology 12/22/23. Pt is on coreg/asa/plavix. (3) Coronary artery disease: Status: Chronic Assessment and plan: He is on DAPT. I'm not sure of indication but will continue this along with atorvastatin. Qualifiers: Coronary Disease-Associated Artery/Lesion type: [place] artery [place] vs. transplanted heart: [place] heart Associated angina: without angina Qualified Code(s): I25.10 - Atherosclerotic heart disease of [place] coronary artery without angina pectoris (4) Diabetes mellitus with complication in adult patient: Status: Chronic Assessment and plan: Blood sugars high, titrate up glargine, continue sliding scale 05/31/24 pt is noted to have a continued elevation in his blood sugars. Pt is on lantus 28 units qpm as well as sliding scale insulin. Will need optimization in the outpatient setting. I will readjust his glucose tomorrow (5) CKD (chronic kidney disease) stage 4, GFR 15-29 ml/min: Status: Acute Assessment and plan: Stable, close to recent baseline. Continue to monitor. Has tele f/u with [facility] nephrology 05/3105/31/2024 Patient is currently has a BUN of 106 and a creatinine of 4.7. Yesterday were 108 and 4.6. Patient does follow-up with nephrology in the outpatient setting. Will continue to monitor. (6) COPD (chronic obstructive pulmonary disease): Status: Chronic Assessment and plan: Not active, continue outpatient inhalers. (7) Hypokalemia: Status: Acute Assessment and plan: With diuresis, replace orally 05/31/2024 Patient's potassium is currently 3.4 it was 3.0 yesterday. Continue with oral replacement. (8) DVT prophylaxis: Status: Resolved Assessment and plan: heparin subcut, BID with CKD Subjective Subjective Interval history since last seen: Patient seen and examined in his room. Plan of care was discussed with the patient as well as multidisciplinary rounding team including bedside nurse. Exam Narrative Exam Narrative: Gen: Alert and oriented, appears tired but NAD. Lungs diminished diffusely but no rales. Heart RRR w/o MRG; abdomen soft and NT; extremities s/p bilateral BKA with 2+ bilateral edema to stumps. Negron is in place Objective Last Vital Signs Temp 35.9 C L 05/31/24 14:53 Pulse 83 05/31/24 14:53 Resp 16 05/31/24 14:53 BP 128/89 05/31/24 14:53 Pulse Ox 92 05/31/24 14:53 Laboratory Results - last 24 hr 05/30/24 05/31/24 05/31/24 17:11 06:10 10:36 WBC 9.61 RBC 3.88 L Hgb 13.0 L Hct 38.5 L MCV 99 H MCH 33.5 H MCHC 33.8 RDW 15.2 H Plt Count 151 MPV 10.2 Immature Gran % 0.3 Neutrophils % 84.5 Lymphocytes % 5.1 Monocytes % 7.7 Eosinophils % 2.1 Basophils % 0.3 Nucleated RBC % 0.0 Absolute Neutrophils 8.12 H Absolute Lymphocytes 0.49 L Absolute Monocytes 0.74 Absolute Eosinophils 0.20 Absolute Basophils 0.03 Sodium 132 L Potassium 3.4 L Chloride 92 L Carbon Dioxide 28.5 Anion Gap 11.5 H BUN 106 H* Creatinine 4.7 H* Est GFR (CKD-EPI 2020) 13.96 Glucose 232 H Calcium 8.5 Magnesium 2.5 H Troponin I Cancelled 1039 H* PAWSS Have you Been Recently Intoxicated or Drunk Within the Last 30 days?: Yes Have you Ever Experienced Previous Episodes of Alcohol Withdrawal?: No Have you ever Experienced Withdrawal Seizures?: No Have you ever Experienced Delirium Tremens(DT)s?: No Have you ever undergone Alcohol Rehabilitation Treatment (i.e, inpt ot outpatient treatment programs)?: No Have you ever Experienced Blackouts?: No Have you ever Combined Alcohol with other Downers within the last 90 days?: No Have you ever Combined Alcohol with any other Substance of Abuse during the last 90 days?: No Evidence of Increased Autonomic Activity (i.e. HR>120, tremor, sweating, agitation, nausea)?: No Result: 1 Time Spent with Patient Time Spent with Patient: <25 minutes Time was spent: preparing to see the patient(eg.review tests), obtaining and/or reviewing separately otained hiistory, ordering medications,tests, procedures, referring, communicating with other health progressive care manager, indepentently interpreting results, counseling the patient and care coordination
[2024-05-31 19:23] VITALS: BP 134/82; PULSE 85; RESP 16; TEMP 36.1; O2SAT 87
[2024-05-31 19:29] VITALS: O2SAT 90
[2024-05-31] MEDS: Lidocaine 5% Patch 1 PATCH TP (21:08)
[2024-05-31] MEDS: Melatonin 3 MG TAB 6 MG PO (21:08)
[2024-05-31] MEDS: Normal Saline Flush 10 ML SYR IVP (21:08)
[2024-05-31] MEDS: Insulin Glargine 300 UNITS/3 ML PEN 28 UNITS SC (21:09)
[2024-05-31 22:57] VITALS: BP 135/68; PULSE 65; RESP 17; TEMP 36.8; O2SAT 95
[2024-06-01] MEDS: Levalbuterol HFA 15 GM INH 2 PUFF IH ×3 (01:18→13:51)
[2024-06-01 07:16] LABS: PHOSPHORUS 7.2 mg/dL (2.6-4.7)
[2024-06-01 07:18] LABS: Anion Gap 12.3 mmol/L (3-11); CO2 27.7 mmol/L (21.0-32.0); Calcium 8.5 mg/dL (8.5-10.1); Chloride 95 mmol/L (98-107); Estimated GFR 13.62 (mL/min/1.73m2); Glucose 250 mg/dL (74-106); Magnesium 2.4 mg/dL (1.8-2.4); Potassium 3.3 mmol/L (3.5-5.1); Sodium 135 mmol/L (136-145)
[2024-06-01 07:24] VITALS: BP 152/96; PULSE 84; RESP 17; TEMP 35.8; O2SAT 97
[2024-06-01 07:26] LABS: BUN 116 mg/dL (7-18); CREATININE 4.8 mg/dL (0.70-1.30)
[2024-06-01] MEDS: Tiotropium Bromide-Respimat 10 PUFF INH 2 PUFF IH (07:37)
[2024-06-01] MEDS: Furosemide 100 MG/10 ML VIAL 80 MG IVP ×3 (08:15→23:29)
[2024-06-01] MEDS: Insulin Aspart 300 UNITS/3 ML PEN SC ×3 (08:15→17:00)
[2024-06-01] MEDS: Potassium Chloride 20 MEQ TABCR PO ×2 (08:16→20:32)
[2024-06-01] MEDS: Sodium Bicarbonate 650 MG TAB PO ×2 (08:16→20:32)
[2024-06-01] MEDS: Cetirizine 10 MG TAB 5 MG PO (08:16)
[2024-06-01] MEDS: Cyanocobalamin 500 MCG TAB 1000 MCG PO (08:16)
[2024-06-01] MEDS: Aspirin E.C. 81 MG TABEC PO (08:16)
[2024-06-01] MEDS: Cholecalciferol (Vitamin D3) 1,000 UNIT TAB 1000 UNITS PO (08:17)
[2024-06-01] MEDS: Pantoprazole 40 MG TABCR PO (08:17)
[2024-06-01] MEDS: Atorvastatin 10 MG TAB PO (08:17)
[2024-06-01] MEDS: Ascorbic Acid 500 MG TAB PO (08:18)
[2024-06-01] MEDS: Clopidogrel 75 MG TAB PO (08:18)
[2024-06-01] MEDS: Carvedilol 12.5 MG TAB PO ×2 (08:18→20:32)
--- NOTE | 2024-06-01 08:59 | CMPROGNOTE_ITS ---
Date of service: 06/01/24 Time of Service: 08:59 Care Management Progress Note Progress Note Text Progress Note Text: Leroy was sitting up in a chair when CM met with him. He was complaining about pain in his coccyx. He informed CM that he does not have a cushion for his wheelchair at home and cannot shift his weight comfortably. CM was able to provide a cushion. Leroy also talked about his difficulties obtaining any needed supplies in the community. He shared that he does not feel supported by the CC at his PCP's office practice and needs to do everything for himself. He was told by the practice that he is not eligible for an electric wheelchair because his upper extremities are unaffected and he is capable of maneuvering a manual wheelchair. Leroy explained that he is unable to push a manual wheelchair because of his weight gain and the [place] terrain in [facility]. Leroy found someone privately who had an electric wheelchair for sale and he bought it with his own money. He stated it is a good chair but has not been properly fitted for him. CM will assist Leroy with coordinating a seating assessment with PT either before discharge or as an outpatient. Discharge Potential Discharge Needs: PCP F/U Appt Anticipated Barriers to Discharge: None Identified Patient/Family Education Needs: Review discharge instructions, discuss Ask Me Three Transportation: Private vehicle Plan: Anticipate Leroy will be discharged home, possibly with new home health services, when medically stable. He will follow up with his PCP and plan of care and transport with family. CM will follow and continue to assess for discharge needs. SDOH(Care Management) Screening Will the Patient Participate in the Screening?: Yes Do you worry about having a steady place to live?: no In the past 12 months, have you had to go without electric, gas, oil or water in your home?: no Have you or anyone in your house had to go without enough food to eat?: no Has lack of transportation kept you from medical appointments or from doing things needed for daily living?: no Has anyone in your support network made you feel unsafe for any reason?: no Social Determinants of Health Comments(SDOH Details): RCT for transportation
[2024-06-01] MEDS: Fluticasone NASAL SPRAY 16 GM BTL NS (10:56)
[2024-06-01] MEDS: Patch Removal 1 EACH TP (10:58)
[2024-06-01 11:41] VITALS: BP 127/72; PULSE 87; RESP 15; TEMP 35.7; O2SAT 91
[2024-06-01] MEDS: Heparin 5,000 UNITS/ML VIAL 5000 UNITS SC ×2 (12:59→23:30)
--- NOTE | 2024-06-01 13:08 | PGE_ITS ---
Date of Service Date of service: 06/01/24 Time of Service: 13:09 Assessment and Plan Assessment and plan (1) Acute systolic (congestive) heart failure: Status: Acute Assessment and plan: Responding to IV diuresis, negative 2.5 liters since admission overnight. Continue furosemide 80mg q8hr resume outpatient thiazide indipamide as this may help potentiate the loop continue to monitor I/Os 05/31/2024 Patient continues to have good diuresis with balance loss over 1600 cc last 24 hours. 06/01/2024 I did notice that he has diuresed approximately 6 L since admission. Will continue with his current therapy including Lasix 80 mg IV every 8, Coreg 12.5 p.o. twice daily, (2) Elevated troponin: Assessment and plan: In setting of stage 4 CKD and CHF. No chest pain or ischemic EKG changes [place] [facility] [place] who felt not c/w ACS. Follow until trending down, reassess if he gets chest pain 05/31/24 Troponins continue to trend down. Pt does not complain of any chest pain. I did review the notes from cardiology 12/22/23. Pt is on coreg/asa/plavix. 06/01/2024 Patient denies any current chest pain but I will check a troponin in a.m. In reviewing cardiology notes no significant systolic heart failure with the last cath showing an EF of 18% (3) Coronary artery disease: Status: Chronic Assessment and plan: He is on DAPT. I'm not sure of indication but will continue this along with atorvastatin. Qualifiers: Coronary Disease-Associated Artery/Lesion type: [place] artery [place] vs. transplanted heart: [place] heart Associated angina: without angina Qualified Code(s): I25.10 - Atherosclerotic heart disease of [place] coronary artery without angina pectoris (4) Diabetes mellitus with complication in adult patient: Status: Chronic Assessment and plan: Blood sugars high, titrate up glargine, continue sliding scale 05/31/24 pt is noted to have a continued elevation in his blood sugars. Pt is on lantus 28 units qpm as well as sliding scale insulin. Will need optimization in the outpatient setting. I will readjust his glucose tomorrow 06/01/2024 I did discuss with nutrition today that he had actually been on 36 units at home but does not let insomnia increase that. The patient has had consistent glucoses over 200. (5) CKD (chronic kidney disease) stage 4, GFR 15-29 ml/min: Status: Acute Assessment and plan: Stable, close to recent baseline. Continue to monitor. Has tele f/u with [facility] nephrology 05/3105/31/2024 Patient is currently has a BUN of 106 and a creatinine of 4.7. Yesterday were 108 and 4.6. Patient does follow-up with nephrology in the outpatient setting. Will continue to monitor. 06/01/2024 Patient's BUN and creatinine continue to rise and per my discussion with the patient there is consideration about starting him on hemodialysis. Unfort unately he has missed his last 3 appointments with his buffing wheel presser for various reasons including hospitalizations. In reviewing his labs his also had an elevation in his phosphorus so I am going to start him on Phoslo (6) COPD (chronic obstructive pulmonary disease): Status: Chronic Assessment and plan: Not active, continue outpatient inhalers. (7) Hypokalemia: Status: Acute Assessment and plan: With diuresis, replace orally 05/31/2024 Patient's potassium is currently 3.4 it was 3.0 yesterday. Continue with oral replacement. (8) DVT prophylaxis: Status: Resolved Assessment and plan: heparin subcut, BID with CKD (9) Hyperphosphatemia: Status: Acute Assessment and plan: added phoslo Subjective Subjective Interval history since last seen: Patient seen and examined in his room this afternoon. Plan of care discussed with patient as well as with multidisciplinary rounding team. In regards to changes I did increase his Lantus to 36 started him on PhosLo started Ambien and Flexeril. Patient did complain of pain in his coccygeal area Exam Narrative Exam Narrative: Gen: Alert and oriented, appears tired but NAD. Lungs diminished diffusely but no rales. Heart RRR w/o MRG; abdomen soft and NT; extremities s/p bilateral BKA with 2+ bilateral edema to stumps. Negron is in place Objective Last Vital Signs Temp 35.7 C L 06/01/24 11:41 Pulse 87 06/01/24 11:41 Resp 15 06/01/24 11:41 BP 127/72 06/01/24 11:41 Pulse Ox 91 L 06/01/24 11:41 Laboratory Results - last 24 hr 05/31/24 06/01/24 06:10 06:04 Sodium 132 L 135 L Potassium 3.4 L 3.3 L Chloride 92 L 95 L Carbon Dioxide 28.5 27.7 Anion Gap 11.5 H 12.3 H BUN 106 H* 116 H* Creatinine 4.7 H* 4.8 H* Est GFR (CKD-EPI 2020) 13.96 13.62 Glucose 232 H 250 H Calcium 8.5 8.5 Phosphorus 7.2 H Magnesium 2.5 H 2.4 Troponin I 1039 H* PAWSS Have you Been Recently Intoxicated or Drunk Within the Last 30 days?: Yes Have you Ever Experienced Previous Episodes of Alcohol Withdrawal?: No Have you ever Experienced Withdrawal Seizures?: No Have you ever Experienced Delirium Tremens(DT)s?: No Have you ever undergone Alcohol Rehabilitation Treatment (i.e, inpt ot outpatient treatment programs)?: No Have you ever Experienced Blackouts?: No Have you ever Combined Alcohol with other Downers within the last 90 days?: No Have you ever Combined Alcohol with any other Substance of Abuse during the last 90 days?: No Evidence of Increased Autonomic Activity (i.e. HR>120, tremor, sweating, agitation, nausea)?: No Result: 1 Time Spent with Patient Time Spent with Patient: 35-49 minutes Time was spent: preparing to see the patient(eg.review tests), obtaining and/or reviewing separately otained hiistory, ordering medications,tests, procedures, referring, communicating with other health medical care administrator, indepentently interpreting results, counseling the patient and care coordination
[2024-06-01 15:57] VITALS: BP 133/67; PULSE 67; RESP 17; TEMP 35.8; O2SAT 93
[2024-06-01] MEDS: Normal Saline Flush 10 ML SYR IVP (17:00)
[2024-06-01] MEDS: Cyclobenzaprine 10 MG TAB 5 MG PO (17:11)
[2024-06-01] MEDS: Lidocaine 2% Jelly 6 ML SYR TP (18:44)
[2024-06-01 20:10] VITALS: BP 148/103; PULSE 93; RESP 16; TEMP 36.4; O2SAT 91
[2024-06-01 20:30] VITALS: BP 168/93
[2024-06-01] MEDS: Melatonin 3 MG TAB 6 MG PO (20:32)
[2024-06-01] MEDS: Insulin Glargine 300 UNITS/3 ML PEN 36 UNITS SC (20:33)
[2024-06-01] MEDS: Lidocaine 5% Patch 1 PATCH TP (23:29)
[2024-06-01] MEDS: Zolpidem 10 MG TAB PO (23:29)
[2024-06-02 07:38] LABS: Troponin I 758 ng/L (<or=76)
[2024-06-02 07:44] VITALS: BP 123/70; PULSE 83; RESP 24; TEMP 36.6; O2SAT 92
[2024-06-02 07:45] LABS: Abs Immature Grans 0.03 10^3/uL (0.0-0.06); Absolute Basophil Count 0.04 10^3/uL (0.0-0.2); Absolute Eosinophil Count 0.27 10^3/uL (0.0-0.7); Absolute Lymphocyte Count 0.71 10^3/uL (1.2-3.4); Absolute Monocyte Count 0.91 10^3/uL (0.1-0.8); Absolute Neutrophil Count 7.31 10^3/uL (1.2-6.7); Basophils % 0.4 %; Eosinophils % 2.9 %; HCT 40.1 % (40.0-50.0); HGB 13.1 g/dL (13.5-17.5); Immature Grans % 0.3 %; Lymphocytes % 7.7 %; MCH 33.4 pg (27.0-33.0); MCHC 32.7 % (32.0-36.0); MCV 102 fL (80-95); MPV 10.5 fL (8.0-11.0); Monocytes % 9.8 %; Neutrophils % 78.9 %; Platelet Count 155 10^3/uL (130-400); RBC 3.92 10^6/uL (4.36-5.78); RDW 15.1 % (11.8-14.1); WBC 9.27 10^3/uL (4.4-10.8)
[2024-06-02] MEDS: Tiotropium Bromide-Respimat 10 PUFF INH 2 PUFF IH (08:10)
[2024-06-02] MEDS: Levalbuterol HFA 15 GM INH 2 PUFF IH ×2 (08:10→19:57)
[2024-06-02] MEDS: Furosemide 100 MG/10 ML VIAL 80 MG IVP ×3 (08:30→23:21)
[2024-06-02] MEDS: Sodium Bicarbonate 650 MG TAB PO ×2 (08:31→19:46)
[2024-06-02] MEDS: Cyanocobalamin 500 MCG TAB 1000 MCG PO (08:31)
[2024-06-02] MEDS: Atorvastatin 10 MG TAB PO (08:32)
[2024-06-02] MEDS: Carvedilol 12.5 MG TAB PO ×2 (08:32→19:46)
[2024-06-02] MEDS: Empaglifozin 10 MG TAB PO (08:32)
[2024-06-02] MEDS: Aspirin E.C. 81 MG TABEC PO (08:32)
[2024-06-02] MEDS: Cetirizine 10 MG TAB 5 MG PO (08:32)
[2024-06-02] MEDS: Ascorbic Acid 500 MG TAB PO (08:32)
[2024-06-02] MEDS: Potassium Chloride 20 MEQ TABCR PO ×2 (08:32→19:46)
[2024-06-02] MEDS: Cholecalciferol (Vitamin D3) 1,000 UNIT TAB 1000 UNITS PO (08:33)
[2024-06-02] MEDS: Clopidogrel 75 MG TAB PO (08:33)
[2024-06-02] MEDS: Pantoprazole 40 MG TABCR PO (08:33)
[2024-06-02] MEDS: Normal Saline Flush 10 ML SYR IVP (08:34)
[2024-06-02] MEDS: Insulin Aspart 300 UNITS/3 ML PEN SC ×3 (08:37→17:33)
[2024-06-02] MEDS: Fluticasone NASAL SPRAY 16 GM BTL NS (09:58)
[2024-06-02] MEDS: Cyclobenzaprine 10 MG TAB 5 MG PO (10:54)
[2024-06-02] MEDS: Patch Removal 1 EACH TP (10:55)
[2024-06-02] MEDS: Lidocaine 2% Jelly 6 ML SYR TP ×2 (10:59→17:30)
[2024-06-02 11:56] VITALS: BP 128/90; PULSE 87; RESP 23; TEMP 36.3; O2SAT 93
[2024-06-02] MEDS: Heparin 5,000 UNITS/ML VIAL 5000 UNITS SC ×2 (12:11→23:21)
--- NOTE | 2024-06-02 12:46 | PDOC.CMDIS ---
Date of service: 06/02/24 Time of Service: 12:46 LACE Index Scoring Tool Questions: Length of Stay (in days): 4 - 6 Was the patient admitted via the E.D.?: Yes Comorbidities: Diabetes w/o Complication, Congestive Heart Failure, Chronic Pulmonary Disease and Liver or Renal Disease E.D. Visits: 3 Answers: Total Score: 15 Risk of Readmission: High Risk Care Management Discharge Plan Reason for Hospitalization: CHF Discharge Plan: Leroy will be discharged home with new [facility] RN. He will follow up with his community providers and plan of care and transport via [facility] coordinated by CM. Patient/Family Education Needs: Review of discharge instructions, limitations, follow up plan, discuss Ask Me Three SDOH Health Related Social Needs: Health related social needs housing instability, housed, with risk of homelessness(Z59.811)
[2024-06-02 15:52] VITALS: BP 130/97; PULSE 99; RESP 16; TEMP 36.3; O2SAT 88
--- NOTE | 2024-06-02 16:59 | PGE_ITS ---
Date of Service Date of service: 06/02/24 Time of Service: 17:00 Assessment and Plan Assessment and plan (1) Acute systolic (congestive) heart failure: Status: Acute Assessment and plan: Responding to IV diuresis, negative 2.5 liters since admission overnight. Continue furosemide 80mg q8hr resume outpatient thiazide indipamide as this may help potentiate the loop continue to monitor I/Os 05/31/2024 Patient continues to have good diuresis with balance loss over 1600 cc last 24 hours. 06/01/2024 I did notice that he has diuresed approximately 6 L since admission. Will continue with his current therapy including Lasix 80 mg IV every 8, Coreg 12.5 p.o. twice daily, 06/02/2024 Patient continues to have good diuresis with approximately a 0.3 L of urine out over the last 24 hours. Will continue with his current medical plan. The patient states that he has appointment with his thread tool grinder set up operator in the next 2 months. (2) Elevated troponin: Assessment and plan: In setting of stage 4 CKD and CHF. No chest pain or ischemic EKG changes Case reviewed with [facility] cardiology who felt not c/w ACS. Follow until trending down, reassess if he gets chest pain 05/31/24 Troponins continue to trend down. Pt does not complain of any chest pain. I did review the notes from cardiology 12/22/23. Pt is on coreg/asa/plavix. 06/01/2024 Patient denies any current chest pain but I will check a troponin in a.m. In reviewing cardiology notes no significant systolic heart failure with the last cath showing an EF of 18% 06/02/24 Patient continues to deny chest pain and his troponin continues to trend down. Elevation is almost certainly due to his renal disease. (3) Coronary artery disease: Status: Chronic Assessment and plan: He is on DAPT. I'm not sure of indication but will continue this along with atorvastatin. 06/02/2024 As mentioned above the patient has an appoint with his thread tool grinder set up operator in approximately 2 months. Qualifiers: Coronary Disease-Associated Artery/Lesion type: [place] artery [place] vs. transplanted heart: [place] heart Associated angina: without angina Qualified Code(s): I25.10 - Atherosclerotic heart disease of [place] coronary artery without angina pectoris (4) Diabetes mellitus with complication in adult patient: Status: Chronic Assessment and plan: Blood sugars high, titrate up glargine, continue sliding scale 05/31/24 pt is noted to have a continued elevation in his blood sugars. Pt is on lantus 28 units qpm as well as sliding scale insulin. Will need optimization in the outpatient setting. I will readjust his glucose tomorrow 06/01/2024 I did discuss with nutrition today that he had actually been on 36 units at home but does not let insomnia increase that. The patient has had consistent glucoses over 200. 06/02/2024 Patient is glucometers for much more appropriate yesterday but today he continues to have fairly high sugars which range from approximately 220-260. I did start him on his home dose of Lantus (36 units. Will trend out the next couple of values and if they still remain high while off his Lantus or I am considering starting a dose before meals. (5) CKD (chronic kidney disease) stage 4, GFR 15-29 ml/min: Status: Acute Assessment and plan: Stable, close to recent baseline. Continue to monitor. Has tele f/u with [facility] nephrology 05/3105/31/2024 Patient is currently has a BUN of 106 and a creatinine of 4.7. Yesterday were 108 and 4.6. Patient does follow-up with nephrology in the outpatient setting. Will continue to monitor. 06/01/2024 Patient's BUN and creatinine continue to rise and per my discussion with the patient there is consideration about starting him on hemodialysis. Unfortunately he has missed his last 3 appointments with his project eng for various reasons including hospitalizations. In reviewing his labs his also had an elevation in his phosphorus so I am going to start him on Phoslo 06/02/2024 Orders placed for a CMP with phosphorus in a.m. Patient was started on PhosLo monitor the results. (6) COPD (chronic obstructive pulmonary disease): Status: Chronic Assessment and plan: Not active, continue outpatient inhalers. (7) Hypokalemia: Status: Acute Assessment and plan: With diuresis, replace orally 05/31/2024 Patient's potassium is currently 3.4 it was 3.0 yesterday. Continue with oral replacement. (8) DVT prophylaxis: Status: Resolved Assessment and plan: heparin subcut, BID with CKD (9) Hyperphosphatemia: Status: Acute Assessment and plan: added phoslo Subjective Subjective Interval history since last seen: Patient seen and examined in his room this afternoon. Plan of care discussed with both the patient as well as at multidisciplinary rounds. I also discussed with the patient what he is knows about the plan for his hemodialysis and he states that ultimate decision has not been made yet, but he would be willing to do dialysis if it was offered. Exam Narrative Exam Narrative: Gen: Alert and oriented, appears tired but NAD. Lungs diminished diffusely but no rales. Heart RRR w/o MRG; abdomen soft and NT; extremities s/p bilateral BKA with 2+ bilateral edema to stumps. Negron is in place Objective Last Vital Signs Temp 36.3 C L 06/02/24 15:52 Pulse 99 H 06/02/24 15:52 Resp 16 06/02/24 15:52 BP 130/97 H 06/02/24 15:52 Pulse Ox 88 L 06/02/24 15:52 Laboratory Results - last 24 hr 06/02/24 06:58 WBC 9.27 RBC 3.92 L Hgb 13.1 L Hct 40.1 MCV 102 H MCH 33.4 H MCHC 32.7 RDW 15.1 H Plt Count 155 MPV 10.5 Immature Gran % 0.3 Neutrophils % 78.9 Lymphocytes % 7.7 Monocytes % 9.8 Eosinophils % 2.9 Basophils % 0.4 Nucleated RBC % 0.0 Absolute Neutrophils 7.31 H Absolute Lymphocytes 0.71 L Absolute Monocytes 0.91 H Absolute Eosinophils 0.27 Absolute Basophils 0.04 Troponin I 758 H* PAWSS Have you Been Recently Intoxicated or Drunk Within the Last 30 days?: Yes Have you Ever Experienced Previous Episodes of Alcohol Withdrawal?: No Have you ever Experienced Withdrawal Seizures?: No Have you ever Experienced Delirium Tremens(DT)s?: No Have you ever undergone Alcohol Rehabilitation Treatment (i.e, inpt ot outpatient treatment programs)?: No Have you ever Experienced Blackouts?: No Have you ever Combined Alcohol with other Downers within the last 90 days?: No Have you ever Combined Alcohol with any other Substance of Abuse during the last 90 days?: No Evidence of Increased Autonomic Activity (i.e. HR>120, tremor, sweating, agitation, nausea)?: No Result: 1 Time Spent with Patient Time Spent with Patient: 25-34 minutes Time was spent: preparing to see the patient(eg.review tests), obtaining and/or reviewing separately otained hiistory, ordering medications,tests, procedures, referring, communicating with other health career development facilitator, indepentently interpreting results, counseling the patient and care coordination
[2024-06-02 19:43] VITALS: BP 136/96; PULSE 100; RESP 16; TEMP 36.6; O2SAT 95
[2024-06-02] MEDS: Melatonin 3 MG TAB 6 MG PO (19:46)
[2024-06-02] MEDS: Insulin Glargine 300 UNITS/3 ML PEN 36 UNITS SC (19:47)
[2024-06-02] MEDS: Zolpidem 10 MG TAB PO (23:20)
[2024-06-02] MEDS: Lidocaine 5% Patch 1 PATCH TP (23:21)
[2024-06-03] MEDS: Levalbuterol HFA 15 GM INH 2 PUFF IH ×3 (01:57→20:25)
[2024-06-03 07:00] LABS: HCT 39.6 % (40.0-50.0); HGB 13.1 g/dL (13.5-17.5); MCH 32.8 pg (27.0-33.0); MCHC 33.1 % (32.0-36.0); MCV 99 fL (80-95); MPV 10.1 fL (8.0-11.0); Platelet Count 161 10^3/uL (130-400); RDW 15.1 % (11.8-14.1); RDW-SD 53.6 fL; WBC 10.25 10^3/uL (4.4-10.8)
[2024-06-03 07:15] LABS: ALT 12 U/L (16-63); AST 9 U/L (15-37); Albumin 2.7 g/dL (3.4-5.0); Alkaline Phosphatase 114 U/L (46-116); Anion Gap 13.9 mmol/L (3-11); Bilirubin, Total 0.48 mg/dL (0.2-1.0); CO2 28.1 mmol/L (21.0-32.0); Calcium 8.3 mg/dL (8.5-10.1); Chloride 94 mmol/L (98-107); Estimated GFR 13.62 (mL/min/1.73m2); Glucose 255 mg/dL (74-106); Potassium 3.3 mmol/L (3.5-5.1); Sodium 136 mmol/L (136-145); Total Protein 6.2 g/dL (6.4-8.2)
[2024-06-03 07:35] LABS: BUN 124 mg/dL (7-18); CREATININE 4.8 mg/dL (0.70-1.30)
[2024-06-03 07:49] VITALS: BP 134/93; PULSE 89; RESP 18; TEMP 36.8; O2SAT 98
[2024-06-03] MEDS: Tiotropium Bromide-Respimat 10 PUFF INH 2 PUFF IH (07:54)
[2024-06-03] MEDS: Fluticasone NASAL SPRAY 16 GM BTL NS (08:07)
[2024-06-03] MEDS: Furosemide 100 MG/10 ML VIAL 80 MG IVP ×2 (08:08→16:41)
[2024-06-03] MEDS: Insulin Aspart 300 UNITS/3 ML PEN SC ×4 (08:08→20:59)
[2024-06-03] MEDS: Aspirin E.C. 81 MG TABEC PO (08:09)
[2024-06-03] MEDS: Cyclobenzaprine 10 MG TAB 5 MG PO ×2 (08:09→16:40)
[2024-06-03] MEDS: Cetirizine 10 MG TAB 5 MG PO (08:10)
[2024-06-03] MEDS: Potassium Chloride 20 MEQ TABCR PO ×2 (08:11→19:57)
[2024-06-03] MEDS: Cholecalciferol (Vitamin D3) 1,000 UNIT TAB 1000 UNITS PO (08:11)
[2024-06-03] MEDS: Clopidogrel 75 MG TAB PO (08:11)
[2024-06-03] MEDS: Sodium Bicarbonate 650 MG TAB PO ×2 (08:11→19:57)
[2024-06-03] MEDS: Carvedilol 12.5 MG TAB PO ×2 (08:11→19:56)
[2024-06-03] MEDS: Atorvastatin 10 MG TAB PO (08:11)
[2024-06-03] MEDS: Ascorbic Acid 500 MG TAB PO (08:12)
[2024-06-03] MEDS: Empaglifozin 10 MG TAB PO (08:12)
[2024-06-03] MEDS: Pantoprazole 40 MG TABCR PO (08:12)
[2024-06-03] MEDS: Cyanocobalamin 500 MCG TAB 1000 MCG PO (08:12)
[2024-06-03] MEDS: Patch Removal 1 EACH TP (09:54)
[2024-06-03] MEDS: Lidocaine 2% Jelly 6 ML SYR TP (09:54)
[2024-06-03] MEDS: Heparin 5,000 UNITS/ML VIAL 5000 UNITS SC (12:12)
--- NOTE | 2024-06-03 15:19 | PGE_ITS ---
Date of Service Date of service: 06/03/24 Time of Service: 15:19 Assessment and Plan Assessment and plan (1) Acute systolic (congestive) heart failure: Status: Acute Assessment and plan: Responding to IV diuresis, negative 2.5 liters since admission overnight. Continue furosemide 80mg q8hr resume outpatient thiazide indipamide as this may help potentiate the loop continue to monitor I/Os 05/31/2024 Patient continues to have good diuresis with balance loss over 1600 cc last 24 hours. 06/01/2024 I did notice that he has diuresed approximately 6 L since admission. Will continue with his current therapy including Lasix 80 mg IV every 8, Coreg 12.5 p.o. twice daily, 06/02/2024 Patient continues to have good diuresis with approximately a 0.3 L of urine out over the last 24 hours. Will continue with his current medical plan. The patient states that he has appointment with his stockroom clerk in the next 2 months. 06/03/2024 Patient continues have good diuresis and my plan is to discharge the patient in the a.m. It is complicated somewhat by poor social network. (2) Elevated troponin: Assessment and plan: In setting of stage 4 CKD and CHF. No chest pain or ischemic EKG changes Case reviewed with [facility] [place] who felt not c/w ACS. Follow until trending down, reassess if he gets chest pain 05/31/24 Troponins continue to trend down. Pt does not complain of any chest pain. I did review the notes from cardiology 12/22/23. Pt is on coreg/asa/plavix. 06/01/2024 Patient denies any current chest pain but I will check a troponin in a.m. In reviewing cardiology notes no significant systolic heart failure with the last cath showing an EF of 18% 06/02/24 Patient continues to deny chest pain and his troponin continues to trend down. Elevation is almost certainly due to his renal disease 06/03/2024 Patient is without any chest pain at the current time. He does have significant heart disease in the past will need to follow-up with his stockroom clerk in the outpatient setting. Troponins have been trending down.. (3) Coronary artery disease: Status: Chronic Assessment and plan: He is on DAPT. I'm not sure of indication but will continue this along with atorvastatin. 06/02/2024 As mentioned above the patient has an appoint with his stockroom clerk in approximately 2 months. Qualifiers: Coronary Disease-Associated Artery/Lesion type: [place] artery [place] vs. transplanted heart: [place] heart Associated angina: without angina Qualified Code(s): I25.10 - Atherosclerotic heart disease of [place] coronary artery without angina pectoris (4) Diabetes mellitus with complication in adult patient: Status: Chronic Assessment and plan: Blood sugars high, titrate up glargine, continue sliding scale 05/31/24 pt is noted to have a continued elevation in his blood sugars. Pt is on lantus 28 units qpm as well as sliding scale insulin. Will need optimization in the outpatient setting. I will readjust his glucose tomorrow 06/01/2024 I did discuss with nutrition today that he had actually been on 36 units at home but does not let insomnia increase that. The patient has had consistent glucoses over 200. 06/02/2024 Patient is glucometers for much more appropriate yesterday but today he continues to have fairly high sugars which range from approximately 220-260. I did start him on his home dose of Lantus (36 units. Will trend out the next couple of values and if they still remain high while off his Lantus or I am considering starting a dose before meals. 06/03/2024 I am attempting to get in touch with pharmacy to find out how much insulin and the sliding scale Mr. Serrato got yesterday. My plan is to adjust his Lantus up a bit and to try to give him insulin with each meal to decrease his reliance on sliding scale. (5) CKD (chronic kidney disease) stage 4, GFR 15-29 ml/min: Status: Acute Assessment and plan: Stable, close to recent baseline. Continue to monitor. Has tele f/u with [facility] nephrology 05/3105/31/2024 Patient is currently has a BUN of 106 and a creatinine of 4.7. Yesterday were 108 and 4.6. Patient does follow-up with nephrology in the outpatient setting. Will continue to monitor. 06/01/2024 Patient's BUN and creatinine continue to rise and per my discussion with the patient there is consideration about starting him on hemodialysis. Unfortunately he has missed his last 3 appointments with his building materials sales attendant for various reasons including hospitalizations. In reviewing his labs his also had an elevation in his phosphorus so I am going to start him on Phoslo 06/02/2024 Orders placed for a CMP with phosphorus in a.m. Patient was started on PhosLo monitor the results 06/03/2024 As mentioned above I did discuss with the patient the possibility of hemodialysis. He does follow with a building materials sales attendant in the outpatient setting and will need to have follow-up as soon as possible for decision.. (6) COPD (chronic obstructive pulmonary disease): Status: Chronic Assessment and plan: Not active, continue outpatient inhalers. (7) Hypokalemia: Status: Acute Assessment and plan: With diuresis, replace orally 05/31/2024 Patient's potassium is currently 3.4 it was 3.0 yesterday. Continue with oral replacement. (8) DVT prophylaxis: Status: Resolved Assessment and plan: heparin subcut, BID with CKD (9) Hyperphosphatemia: Status: Acute Assessment and plan: added phoslo will recheck labs in am Subjective Subjective Interval history since last seen: Pt seen and examined in his room this afternoon. Pt is resting comfortably. POC d/w MDT at rounds this am Exam Narrative Exam Narrative: Head eyes ears nose and throat: Normocephalic atraumatic mucous membranes moist extraocular motions are intact Neck: No lymphadenopathy no JVD no thyromegaly Respiratory: No accessory muscle use Abdomen: Protuberant : Negron in place General: Resting comfortably Objective Last Vital Signs Temp 36.8 C 06/03/24 07:49 Pulse 89 06/03/24 07:49 Resp 18 06/03/24 07:49 BP 134/93 H 06/03/24 07:49 Pulse Ox 98 06/03/24 07:49 Laboratory Results - last 24 hr 06/03/24 06:40 WBC 10.25 RBC 4.00 L Hgb 13.1 L Hct 39.6 L MCV 99 H MCH 32.8 MCHC 33.1 RDW 15.1 H Plt Count 161 MPV 10.1 Sodium 136 Potassium 3.3 L Chloride 94 L Carbon Dioxide 28.1 Anion Gap 13.9 H BUN 124 H* Creatinine 4.8 H* Est GFR (CKD-EPI 2020) 13.62 Glucose 255 H Calcium 8.3 L Total Bilirubin 0.48 AST 9 L ALT 12 L Alkaline Phosphatase 114 Total Protein 6.2 L Albumin 2.7 L PAWSS Have you Been Recently Intoxicated or Drunk Within the Last 30 days?: Yes Have you Ever Experienced Previous Episodes of Alcohol Withdrawal?: No Have you ever Experienced Withdrawal Seizures?: No Have you ever Experienced Delirium Tremens(DT)s?: No Have you ever undergone Alcohol Rehabilitation Treatment (i.e, inpt ot outpatient treatment programs)?: No Have you ever Experienced Blackouts?: No Have you ever Combined Alcohol with other Downers within the last 90 days?: No Have you ever Combined Alcohol with any other Substance of Abuse during the last 90 days?: No Evidence of Increased Autonomic Activity (i.e. HR>120, tremor, sweating, agitation, nausea)?: No Result: 1 Time Spent with Patient Time Spent with Patient: 25-34 minutes Time was spent: preparing to see the patient(eg.review tests), obtaining and/or reviewing separately otained hiistory, ordering medications,tests, procedures, referring, communicating with other health care attendant, indepentently interpreting results, counseling the patient and care coordination
[2024-06-03 15:47] VITALS: BP 132/91; PULSE 91; RESP 22; TEMP 36.4; O2SAT 92
[2024-06-03 19:51] VITALS: BP 132/95; PULSE 102; RESP 20; TEMP 36.2; O2SAT 92
[2024-06-03] MEDS: Melatonin 3 MG TAB 6 MG PO (19:57)
[2024-06-03] MEDS: Insulin Glargine 300 UNITS/3 ML PEN 36 UNITS SC (19:57)
[2024-06-04] MEDS: Lidocaine 5% Patch 1 PATCH TP ×2 (00:11→21:58)
[2024-06-04] MEDS: Heparin 5,000 UNITS/ML VIAL 5000 UNITS SC ×2 (00:11→12:16)
[2024-06-04] MEDS: Furosemide 100 MG/10 ML VIAL 80 MG IVP ×3 (00:12→16:48)
[2024-06-04] MEDS: Cyclobenzaprine 10 MG TAB 5 MG PO ×3 (00:27→21:55)
[2024-06-04] MEDS: Zolpidem 10 MG TAB PO (00:28)
[2024-06-04] MEDS: Pantoprazole 40 MG TABCR PO (06:26)
[2024-06-04 07:06] LABS: HCT 41.5 % (40.0-50.0); HGB 13.5 g/dL (13.5-17.5); MCH 32.9 pg (27.0-33.0); MCHC 32.5 % (32.0-36.0); MCV 101 fL (80-95); MPV 9.7 fL (8.0-11.0); Platelet Count 152 10^3/uL (130-400); RDW-SD 55.6 fL; WBC 9.92 10^3/uL (4.4-10.8)
[2024-06-04 07:21] LABS: PHOSPHORUS 6.9 mg/dL (2.6-4.7)
[2024-06-04 07:23] LABS: ALT 12 U/L (16-63); AST 9 U/L (15-37); Albumin 2.8 g/dL (3.4-5.0); Alkaline Phosphatase 100 U/L (46-116); Anion Gap 12.2 mmol/L (3-11); Bilirubin, Total 0.61 mg/dL (0.2-1.0); CO2 29.8 mmol/L (21.0-32.0); Calcium 8.5 mg/dL (8.5-10.1); Chloride 97 mmol/L (98-107); Estimated GFR 14.71 (mL/min/1.73m2); Glucose 138 mg/dL (74-106); Potassium 3.3 mmol/L (3.5-5.1); Sodium 139 mmol/L (136-145); Total Protein 6.6 g/dL (6.4-8.2)
[2024-06-04 07:26] LABS: BUN 121 mg/dL (7-18); CREATININE 4.5 mg/dL (0.70-1.30)
[2024-06-04] MEDS: Tiotropium Bromide-Respimat 10 PUFF INH 2 PUFF IH (07:49)
[2024-06-04] MEDS: Levalbuterol HFA 15 GM INH 2 PUFF IH ×3 (07:49→20:25)
[2024-06-04] MEDS: Aspirin E.C. 81 MG TABEC PO (09:09)
[2024-06-04] MEDS: Sodium Bicarbonate 650 MG TAB PO ×2 (09:09→21:55)
[2024-06-04] MEDS: Empaglifozin 10 MG TAB PO (09:09)
[2024-06-04] MEDS: Potassium Chloride 20 MEQ TABCR PO ×2 (09:09→21:55)
[2024-06-04] MEDS: Carvedilol 12.5 MG TAB PO ×2 (09:10→21:55)
[2024-06-04] MEDS: Atorvastatin 10 MG TAB PO (09:10)
[2024-06-04] MEDS: Cetirizine 10 MG TAB 5 MG PO (09:11)
[2024-06-04] MEDS: Cholecalciferol (Vitamin D3) 1,000 UNIT TAB 1000 UNITS PO (09:11)
[2024-06-04] MEDS: Cyanocobalamin 500 MCG TAB 1000 MCG PO (09:11)
[2024-06-04] MEDS: Clopidogrel 75 MG TAB PO (09:11)
[2024-06-04] MEDS: Ascorbic Acid 500 MG TAB PO (09:11)
[2024-06-04] MEDS: Lidocaine 2% Jelly 6 ML SYR TP ×2 (09:31→20:24)
[2024-06-04] MEDS: Fluticasone NASAL SPRAY 16 GM BTL NS (09:34)
[2024-06-04 09:49] VITALS: BP 140/78; PULSE 99; RESP 20; TEMP 36.2; O2SAT 91
[2024-06-04 09:50] VITALS: O2SAT 91
[2024-06-04] MEDS: Patch Removal 1 EACH TP (10:23)
[2024-06-04] MEDS: Insulin Aspart 300 UNITS/3 ML PEN SC ×2 (12:15→16:48)
--- NOTE | 2024-06-04 12:24 | PGE_ITS ---
Date of Service Date of service: 06/04/24 Time of Service: 12:24 Assessment and Plan Assessment and plan (1) Acute systolic (congestive) heart failure: Status: Acute Assessment and plan: Responding to IV diuresis, negative 2.5 liters since admission overnight. Continue furosemide 80mg q8hr resume outpatient thiazide indipamide as this may help potentiate the loop continue to monitor I/Os 05/31/2024 Patient continues to have good diuresis with balance loss over 1600 cc last 24 hours. 06/01/2024 I did notice that he has diuresed approximately 6 L since admission. Will continue with his current therapy including Lasix 80 mg IV every 8, Coreg 12.5 p.o. twice daily, 06/02/2024 Patient continues to have good diuresis with approximately a 0.3 L of urine out over the last 24 hours. Will continue with his current medical plan. The patient states that he has appointment with his train starter in the next 2 months. 06/03/2024 Patient continues have good diuresis and my plan is to discharge the patient in the a.m. It is complicated somewhat by poor social network. 06/04/2024 Patient has had over 13 L of diuresis since he got here. The patient is in a try on his prosthesis again this a.m. to see with that again. My plan is to discharge him in the a.m. Patient does appear somewhat resistant to going home although his medical issues admission seem to be improving quite well. (2) Elevated troponin: Assessment and plan: In setting of stage 4 CKD and CHF. No chest pain or ischemic EKG changes Case [place] [facility] [place] who felt not c/w ACS. Follow until trending down, reassess if he gets chest pain 05/31/24 Troponins continue to trend down. Pt does not complain of any chest pain. I did review the notes from cardiology 12/22/23. Pt is on coreg/asa/plavix. 06/01/2024 Patient denies any current chest pain but I will check a troponin in a.m. In reviewing cardiology notes no significant systolic heart failure with the last cath showing an EF of 18% 06/02/24 Patient continues to deny chest pain and his troponin continues to trend down. Elevation is almost certainly due to his renal disease 06/03/2024 Patient is without any chest pain at the current time. He does have significant heart disease in the past will need to follow-up with his train starter in the outpatient setting. Troponins have been trending down.. 06/04/2024 Serial trend troponin shows improvement and patient remains asymptomatic. The patient does have significant coronary artery disease history and will need to continue following up with his train starter in the outpatient setting (3) Coronary artery disease: Status: Chronic Assessment and plan: He is on DAPT. I'm not sure of indication but will continue this along with atorvastatin. 06/02/2024 As mentioned above the patient has an appoint with his train starter in approximately 2 months. Qualifiers: Coronary Disease-Associated Artery/Lesion type: [place] artery [place] vs. transplanted heart: [place] heart Associated angina: without angina Qualified Code(s): I25.10 - Atherosclerotic heart disease of [place] coronary artery without angina pectoris (4) Diabetes mellitus with complication in adult patient: Status: Chronic Assessment and plan: Blood sugars high, titrate up glargine, continue sliding scale 05/31/24 pt is noted to have a continued elevation in his blood sugars. Pt is on lantus 28 units qpm as well as sliding scale insulin. Will need optimization in the outpatient setting. I will readjust his glucose tomorrow 06/01/2024 I did discuss with nutrition today that he had actually been on 36 units at home but does not let insomnia increase that. The patient has had consistent glucoses over 200. 06/02/2024 Patient is glucometers for much more appropriate yesterday but today he continues to have fairly high sugars which range from approximately 220-260. I did start him on his home dose of Lantus (36 units. Will trend out the next couple of values and if they still remain high while off his Lantus or I am considering starting a dose before meals. 06/03/2024 I am attempting to get in touch with pharmacy to find out how much insulin and the sliding scale Mr. Serrato got yesterday. My plan is to adjust his Lantus up a bit and to try to give him insulin with each meal to decrease his reliance on sliding scale. 06/04/24 Patient's blood sugars are running quite elevated throughout his stay. There is significant concern about his diet noncompliance increasing his glucose on a daily basis. I did check an old A1c or the last A1c we had as in April of this year showed a value of 7.3. This was an improvement from last values. Will continue with long-acting insulin as well was sliding scale. I did i ncrease his sliding scale from low to medium. (5) CKD (chronic kidney disease) stage 4, GFR 15-29 ml/min: Status: Acute Assessment and plan: Stable, close to recent baseline. Continue to monitor. Has tele f/u with [facility] nephrology 05/3105/31/2024 Patient is currently has a BUN of 106 and a creatinine of 4.7. Yesterday were 108 and 4.6. Patient does follow-up with nephrology in the outpatient setting. Will continue to monitor. 06/01/2024 Patient's BUN and creatinine continue to rise and per my discussion with the patient there is consideration about starting him on hemodialysis. Unfortunately he has missed his last 3 appointments with his plant scientist for various reasons including hospitalizations. In reviewing his labs his also had an elevation in his phosphorus so I am going to start him on Phoslo 06/02/2024 Orders placed for a CMP with phosphorus in a.m. Patient was started on PhosLo monitor the results 06/03/2024 As mentioned above I did discuss with the patient the possibility of hemodialysis. He does follow with a plant scientist in the outpatient setting and will need to have follow-up as soon as possible for decision.. (6) COPD (chronic obstructive pulmonary disease): Status: Chronic Assessment and plan: Not active, continue outpatient inhalers. (7) Hypokalemia: Status: Acute Assessment and plan: With diuresis, replace orally 05/31/2024 Patient's potassium is currently 3.4 it was 3.0 yesterday. Continue with oral replacement. (8) DVT prophylaxis: Status: Resolved Assessment and plan: heparin subcut, BID with CKD (9) Hyperphosphatemia: Status: Acute Assessment and plan: added phoslo will recheck labs in am Phoslo improved. Subjective Subjective Interval history since last seen: Patient seen and examined in his room this morning. Plan of care discussed with patient as well as multidisciplinary rounds including bedside nurse. Exam Narrative Exam Narrative: Head eyes ears nose and throat: Normocephalic atraumatic mucous membranes moist extraocular motions are intact Neck: No lymphadenopathy no JVD no thyromegaly Respiratory: No accessory muscle use Abdomen: Protuberant : Negron in place General: Resting comfortably Objective Last Vital Signs Temp 36.2 C L 06/04/24 09:49 Pulse 99 H 06/04/24 09:49 Resp 20 06/04/24 09:49 BP 140/78 06/04/24 09:49 Pulse Ox 91 L 06/04/24 09:50 Laboratory Results - last 24 hr 06/04/24 07:00 WBC 9.92 RBC 4.10 L Hgb 13.5 Hct 41.5 MCV 101 H MCH 32.9 MCHC 32.5 RDW 15.0 H Plt Count 152 MPV 9.7 Sodium 139 Potassium 3.3 L Chloride 97 L Carbon Dioxide 29.8 Anion Gap 12.2 H BUN 121 H* Creatinine 4.5 H* Est GFR (CKD-EPI 2020) 14.71 Glucose 138 H Calcium 8.5 Phosphorus 6.9 H Total Bilirubin 0.61 AST 9 L ALT 12 L Alkaline Phosphatase 100 Total Protein 6.6 Albumin 2.8 L PAWSS Have you Been Recently Intoxicated or Drunk Within the Last 30 days?: Yes Have you Ever Experienced Previous Episodes of Alcohol Withdrawal?: No Have you ever Experienced Withdrawal Seizures?: No Have you ever Experienced Delirium Tremens(DT)s?: No Have you ever undergone Alcohol Rehabilitation Treatment (i.e, inpt ot o utpatient treatment programs)?: No Have you ever Experienced Blackouts?: No Have you ever Combined Alcohol with other Downers within the last 90 days?: No Have you ever Combined Alcohol with any other Substance of Abuse during the last 90 days?: No Evidence of Increased Autonomic Activity (i.e. HR>120, tremor, sweating, agitation, nausea)?: No Result: 1 Time Spent with Patient Time Spent with Patient: 25-34 minutes Time was spent: preparing to see the patient(eg.review tests), obtaining and/or reviewing separately otained hiistory, ordering medications,tests, procedures, referring, communicating with other health healthcare insurance sales agent, indepentently interpreting results, counseling the patient and care coordination
--- NOTE | 2024-06-04 13:33 | NUR.NOTE ---
Documentation reviewed with Giovana Barr, student PARTITION SETTER. Judy Nunez, MSN, RNC-OB, clinical instructor
--- NOTE | 2024-06-04 15:00 | PDOC.CMPRO ---
Date of service: 06/04/24 Time of Service: 15:00 Care Management Progress Note Progress Note Text Progress Note Text: Leroy was sitting up in a chair when CM met with him this morning. He stated he is feeling much better and may be discharged today or tomorrow. Leroy stated it will depend on whether or not he is able to put his prostheses on. He has had lower extremity edema and has been unable to wear his bilateral lower extremity prostheses because of it. CM returned this afternoon and asked how the trial went. Leroy stated that he still needs more time as they don't quite fit right. He has lost over 7 liters of fluid through diuresis since admission and is down 7.3 Kg. Leroy's kidney function is also a bit better with a creatinine of 4.5, down from 4.8. Discharge Potential Discharge Needs: PCP F/U Appt Anticipated Barriers to Discharge: Medical Status Patient/Family Education Needs: Review discharge instructions, discuss Ask Me Three Transportation: RCT Plan: Anticipate Leroy will be discharged home, possibly with new home health services, when medically stable. He will follow up with his PCP and plan of care and transport with family. CM will follow and continue to assess for discharge needs. SDOH(Care Management) Screening Will the Patient Participate in the Screening?: Yes Do you worry about having a steady place to live?: no In the past 12 months, have you had to go without electric, gas, oil or water in your home?: no Have you or anyone in your house had to go without enough food to eat?: no Has lack of transportation kept you from medical appointments or from doing things needed for daily living?: no Has anyone in your support network made you feel unsafe for any reason?: no Social Determinants of Health Comments(SDOH Details): RCT for transportation
[2024-06-04 15:34] VITALS: BP 138/99; PULSE 94; RESP 20; TEMP 35.9; O2SAT 95
[2024-06-04 20:26] LABS: Troponin I 510 ng/L (<or=76)
[2024-06-04] MEDS: Insulin Glargine 300 UNITS/3 ML PEN 36 UNITS SC (21:54)
[2024-06-04] MEDS: Melatonin 3 MG TAB 6 MG PO (21:55)
[2024-06-04 22:00] VITALS: BP 121/88; PULSE 98; RESP 20; TEMP 36.4; O2SAT 94
[2024-06-05 00:08] VITALS: BP 127/92; PULSE 91; RESP 19; TEMP 36; O2SAT 93
[2024-06-05 01:13] LABS: ALT 11 U/L (16-63); AST 9 U/L (15-37); Albumin 2.7 g/dL (3.4-5.0); Alkaline Phosphatase 105 U/L (46-116); Anion Gap 9.7 mmol/L (3-11); CO2 29.3 mmol/L (21.0-32.0); Calcium 8.7 mg/dL (8.5-10.1); Chloride 97 mmol/L (98-107); Estimated GFR 14.71 (mL/min/1.73m2); Glucose 210 mg/dL (74-106); Potassium 3.7 mmol/L (3.5-5.1); Sodium 136 mmol/L (136-145); Total Protein 6.5 g/dL (6.4-8.2)
[2024-06-05] MEDS: Heparin 5,000 UNITS/ML VIAL 5000 UNITS SC (01:15)
[2024-06-05] MEDS: Furosemide 100 MG/10 ML VIAL 80 MG IVP ×2 (01:16→10:00)
[2024-06-05 01:17] LABS: BUN 120 mg/dL (7-18); CREATININE 4.5 mg/dL (0.70-1.30)
[2024-06-05] MEDS: Levalbuterol HFA 15 GM INH 2 PUFF IH ×2 (01:34→08:19)
[2024-06-05 08:01] VITALS: BP 130/91; PULSE 91; RESP 20; TEMP 35.9; O2SAT 94
[2024-06-05] MEDS: Tiotropium Bromide-Respimat 10 PUFF INH 2 PUFF IH (08:16)
[2024-06-05] MEDS: Empaglifozin 10 MG TAB PO (10:01)
[2024-06-05] MEDS: Sodium Bicarbonate 650 MG TAB PO (10:01)
[2024-06-05] MEDS: Carvedilol 12.5 MG TAB PO (10:01)
[2024-06-05] MEDS: Potassium Chloride 20 MEQ TABCR PO (10:02)
[2024-06-05] MEDS: Cholecalciferol (Vitamin D3) 1,000 UNIT TAB 1000 UNITS PO (10:02)
[2024-06-05] MEDS: Atorvastatin 10 MG TAB PO (10:02)
[2024-06-05] MEDS: Aspirin E.C. 81 MG TABEC PO (10:02)
[2024-06-05] MEDS: Pantoprazole 40 MG TABCR PO (10:02)
[2024-06-05] MEDS: Ascorbic Acid 500 MG TAB PO (10:02)
[2024-06-05] MEDS: Cyanocobalamin 500 MCG TAB 1000 MCG PO (10:02)
[2024-06-05] MEDS: Clopidogrel 75 MG TAB PO (10:02)
[2024-06-05] MEDS: Normal Saline Flush 10 ML SYR IVP (10:03)
[2024-06-05] MEDS: Cetirizine 10 MG TAB 5 MG PO (10:04)
[2024-06-05] MEDS: Fluticasone NASAL SPRAY 16 GM BTL NS (10:08)
[2024-06-05] MEDS: Lidocaine 2% Jelly 6 ML SYR TP (10:08)
--- NOTE | 2024-06-05 11:35 | DSE_ITS ---
Date of service: 06/05/24 Time of Service: 11:36 DS: Diagnosis Discharge Diagnosis (1) Acute systolic (congestive) heart failure: Status: Acute (2) Elevated troponin: (3) Coronary artery disease: Status: Chronic (4) Diabetes mellitus with complication in adult patient: Status: Chronic (5) CKD (chronic kidney disease) stage 4, GFR 15-29 ml/min: Status: Acute (6) COPD (chronic obstructive pulmonary disease): Status: Chronic (7) Hypokalemia: Status: Acute (8) DVT prophylaxis: Status: Resolved (9) Hyperphosphatemia: Status: Acute Discharge Plan Disposition Patient Disposition: Home Condition: Stable Discharge Details Reason For Visit: CHF Admit Date/Time: 05/29/24 19:14 Admit Provider: Tu Elizondo Attending Provider: Tu Elizondo Primary Care Provider: Candice Perez Hospital Course Hospital Course: Is a 54-year-old gentleman with known history of significant congestive heart failure with his last EF 18% patient he presents with signs and symptoms worsening heart failure and was admitted to the hospitalist on 05/29/2024. Patient did have brisk diuresis of over 13 kg and when he reached to his prior weight approximately 157 kg and recommended discharge to which he agreed. Patient's other medical problems include diabetes for which she is blood glucose was never completely controlled and he will need to have his medications optimized in the outpatient setting. Patient also has a history of chronic kidney disease and he is followed up by a grapple yarder operator. The patient is grapple yarder operator are determining when and if he should start dialysis. Patient also had a hyperphosphatemia which was treated with PhosLo to some effect. I will send him home on this prescription as well for approximately 10 days Home Meds and New Rx's Prescriptions: New calcium acetate(phosphat bind) 667 mg Capsule 667 mg PO BID@0800,1700 Qty: 20 0RF Continued (DME) Left Outer Sleeve See Rx Instructions .Route .MEDSUPPLY Qty: 1 0RF Rx Instructions: As directed (DME) Right prosthetic socket See Rx Instructions .Route .MEDSUPPLY Qty: 1 0RF Rx Instructions: As directed (DME) glucometer WITH MATCHING TEST STRIPS See Rx Instructions .Route .MEDSUPPLY Qty: 1 0RF Rx Instructions: Using TID until CGM available, then as back-up (DME) lancets Misc See Rx Instructions .ROUTE .MEDSUPPLY Qty: 300 3RF Rx Instructions: To check blood glucose three times daily. On insulin. Dispense covered brand. (DME) Sleeve, Left BKA See Rx Instructions .Route .MEDSUPPLY Qty: 1 0RF Rx Instructions: Per measure & fit by [employer] (DME) Sleeve, Right BKA See Rx Instructions .Route .MEDSUPPLY Qty: 1 0RF Rx Instructions: Per measure & fit by [employer] (DME) Dexcom G7 Er Physician Misc See Rx Instructions .Route Qty: 1 3RF Rx Instructions: As directed to manage DM, E11.8 - 36 Sensors/year. A1C < 7.5 (DME) BKA Prosthetics, B/L See Rx Instructions .Route .MEDSUPPLY Qty: 2 1RF Rx Instructions: Measurement/fitting TBD by [employer] unless out-sourced levalbuterol tartrate 45 mcg/actuation HFA aerosol inhaler 2 inh inhalation Q6H Qty: 15 1RF Rx Instructions: TRIAL LEV-ALB INHALER (DME) Amputation Compression Sleeve See Rx Instructions .Route .MEDSUPPLY Qty: 1 0RF Rx Instructions: Please provide and fit a compression sleeve to the left BKA stump for appropriate prosthesis wear. (DME) fore arm cuff crutches See Rx Instructions .Route .MEDSUPPLY Qty: 1 0RF Rx Instructions: dispense 1 pair acetaminophen 325 mg tablet 650 mg PO Q4H PRN (Reason: fever or pain) Qty: 180 1RF azelastine 137 mcg (0.1 %) aerosol,spray See Rx Instructions intranasal BID Qty: 30 1RF Rx Instructions: 1-2 sprays intranasal twice a day; administer into each nostril (DME) FreeStyle Luis 2 [place]in Misc See Rx Instructions .ROUTE .MEDSUPPLY Qty: 1 0RF Rx Instructions: As directed (DME) FreeStyle Luis 2 Sensor Kit See Rx Instructions .ROUTE .MEDSUPPLY Qty: 6 3RF Rx Instructions: As directed fluticasone propionate [Allergy Relief (fluticasone)] 50 mcg/actuation spray,suspension 1 spray intranasal DAILY Qty: 16 1RF Rx Instructions: administer into each nostril (DME) Contour Test Strips Strip See Rx Instructions .Route Qty: 100 2RF Rx Instructions: DX E11.9 Check BS TID use as back up if CGM fails. Farxiga 5 mg tablet See Rx Instructions .ROUTE .COMPLEX Qty: 28 10RF Dose Instruction: TAKE 1 TABLET BY MOUTH DAILY FOR TYPE 2 DIABETES MELLITUS NOT AT GOAL, STAGE 3 CKD Rx Instructions: TAKE 1 TABLET BY MOUTH DAILY FOR TYPE 2 DIABETES MELLITUS NOT AT GOAL, STAGE 3 CKD ascorbic acid (vitamin C) 1,000 mg tablet 500 mg PO DAILY Qty: 90 3RF Rx Instructions: Doses exceeding 500mg daily will invalidate CGM sensor. 02/04/22 EO Spiriva Respimat 2.5 mcg/actuation mist See Rx Instructions .ROUTE .COMPLEX Qty: 4 3RF Dose Instruction: INHALE 2 PUFFS BY MOUTH DAILY Rx Instructions: INHALE 2 PUFFS BY MOUTH DAILY clopidogrel 75 mg tablet 75 mg PO DAILY Qty: 30 5RF Rx Instructions: take separately from reflux medication. sodium bicarbonate 650 mg tablet 650 mg PO BID cholecalciferol (vitamin D3) 25 mcg (1,000 unit) capsule 25 mcg PO DAILY Qty: 90 3RF cyanocobalamin (vitamin B-12) 1,000 mcg capsule 1,000 mcg PO DAILY Qty: 90 3RF atorvastatin 10 mg tablet 10 mg PO DAILY Qty: 90 3RF cetirizine 10 mg tablet 10 mg PO DAILY Qty: 90 3RF aspirin 81 mg tablet,delayed release (DR/EC) 81 mg PO DAILY Qty: 90 3RF carvedilol 12.5 mg tablet 12.5 mg PO BID Qty: 180 3RF Rx Instructions: must administer with a meal/food (DME) Dexcom G7 Sensor Device See Rx Instructions .Route Qty: 3 11RF Rx Instructions: For A1C < 7.5, DM E11.8 (36 per year) insulin glargine 100 unit/mL (3 mL) insulin pen 36 unit subcut QPM Qty: 15 3RF Rx Instructions: 01/27/24-pt reports this is what he's taking-LH insulin lispro [Humalog KwikPen Insulin] 100 unit/mL insulin pen 1 sliding scale dose subcut USEASDIRECTD MDD 50 units Qty: 15 3RF Rx Instructions: [facility] Endo - current correction of 1u:30mg/dl, starting at 130mg/dl per pt. 6/22/21 pantoprazole 40 mg tablet,delayed release (DR/EC) 40 mg PO DAILY Qty: 90 3RF Dupixent Syringe 300 mg/2 mL syringe 300 mg SUBCUT Q2W indapamide 2.5 mg tablet 5 mg PO DAILY furosemide 40 mg Tablet 40 mg PO BID@0830,1600 Qty: 60 0RF clobetasol 0.05 % spray,non-aerosol 1 applic topical BID PRN Rx Instructions: not to exceed 26 sprays per single application No Action (DME) pen needle, diabetic [BD Ultra-Fine Mini Pen Needle] 31 gauge x 3/16 needle See Rx Instructions .Route Qty: 300 3RF Rx Instructions: As directed for injecting Lantus/humalog to maintain A1C < 7, DM E11.8 Discharge Instructions Activity:: Activity as Tolerated Equipment/Supplies:: pt will his own DME Diet:: Carb Counting Discharge Orders Discharge Orders: Discharge Order (Routine); Ordered 06/05/24 Ordered By: Chris Nance DS: Summary Time Spent with Patient providing and/or coordinating discharge services: Less than 30 minutes Status at Discharge Functional status at discharge: independent ambulation Overall status at discharge: patient is back to baseline Mental Status: mental status grossly normal Speech and Movement: speech and movement normal Mood: dysthymic mood Affect: irritable affect Quality:SDOH Health Related Social Needs: Health related social needs housing instability, house d, with risk of homelessness(Z59.811) Exam Narrative Exam Narrative: Head eyes ears nose and throat: Normocephalic atraumatic mucous membranes moist extraocular motions are intact Neck: No lymphadenopathy no JVD no thyromegaly Respiratory: No accessory muscle use Abdomen: Protuberant : Negron in place General: Resting comfortably Psych Mental Status: mental status grossly normal Speech and Movement: speech and movement normal Mood: dysthymic mood Affect: irritable affect DS: Data Vitals/I&O Vitals and I&O: Vital Signs Temperature 35.9 C L 06/05/24 08:01 Temperature Source Temporal Artery Scan 06/05/24 08:01 Pulse 91 H 06/05/24 08:01 Pulse Rhythm Regular 05/29/24 21:07 Pulse 94 H 05/29/24 18:40 Respiratory Rate 20 06/05/24 08:01 Respiratory Effort Normal, Non-Labored 05/29/24 21:07 Respiratory Depth Normal 05/29/24 21:07 Respiratory Pattern Normal 05/29/24 21:07 Blood Pressure 130/91 H 06/05/24 08:01 Blood Pressure Mean 120 05/29/24 18:01 Pulse Oximetry 94 06/05/24 08:01 Oxygen Delivery Method Room Air 06/05/24 08:01 Oxygen Flow Rate 0 06/05/24 08:01 Pain Level 6 06/05/24 08:01 Comment nurse notified. 06/04/24 15:34 Intake & Output 06/04/24 06/04/24 06/05/24 11:59 23:59 11:59 Intake Total 130 / 620 490 / 620 Output Total 3000 / 5500 2500 / 5500 2350 / 2350 Balance -2870 / -4880 -2009 / -4880 -2350 / -2350 Weight 157.85 kg Intake: IV Oral 120 / 600 480 / 600 Output: Urine 3000 / 5500 2500 / 5500 2350 / 2350 Other: Urine Color Yellow Yellow Yellow Urine Appearance Clear Clear Urine Odor Normal Stool Size Small Moderate Large Stool Characteristics Soft Formed Formed Formed Brown Brown Data Completed and Pending Labs on day of discharge: Labs from last 24 hours 06/05/24 06/04/24 00:42 19:55 Sodium 136 Potassium 3.7 Chloride 97 L Carbon Dioxide 29.3 Anion Gap 9.7 BUN 120 H* Creatinine 4.5 H* Est GFR (CKD-EPI 2020) 14.71 Glucose 210 H Calcium 8.7 Magnesium 2.0 Total Bilirubin 0.60 AST 9 L ALT 11 L Alkaline Phosphatase 105 Troponin I 510 H* Total Protein 6.5 Albumin 2.7 L PFSH All Active Problems (Updated 06/05/24 @ 11:34 by Chris Nance MD) Hyperphosphatemia (Acute) Hypokalemia (Acute) Amputat leg, bilat-complicated (Acute) Non-ST elevation DC (NSTEMI) (Acute) Anemia (Chronic) CKD (chronic kidney disease) (Chronic) Edema (Acute) CHF (congestive heart failure) (Chronic) PDR (proliferative diabetic retinopathy) (Acute ~05/25/24) 05/25/24 [facility] note.HE Anemia in CKD (chronic kidney disease) (Acute) Glucosuria (Acute) Proteinuria (Acute) Acute systolic (congestive) heart failure (Acute) Edema of abdominal wall (Acute) Edema of right lower extremity (Chronic) Fluctuating 2' CHF, fluid overload/diuresis Edema of left lower extremity (Chronic) Fluctuating 2' CHF, fluid overload/diuresis At risk for fluid and electrolyte imbalance (Acute) Long Hx 2' med changes, fluid overload. At risk for medication error (Acute) 2' ED, Hosp, Specialists, H&R, HH .. and transportation/delivery difficulties Type 2 diabetes mellitus with proliferative diabetic retinopathy without macular edema, bilateral (Acute) COVID (Acute ~06/22/23) Edema (Acute) Hyperphosphatemia associated with renal failure (Acute) Decreased ambulation status (Acute) Scooter, for outside .. 4-wheel, for hill, grass & dog.. getting to [employer] shop and garage and acreage.. HCM and QOL .. and working for [employer]. CKD (chronic kidney disease) stage 4, GFR 15-29 ml/min (Acute) GFR @ 19-20 with elevated A1C, but @ risk of hypoglycemia.. CHANEL (acute kidney injury) (Acute) Improved with diuresis and hydration @ home, but high risk for repeat episodes Hypertension associated with diabetes (Acute) Persistent proteinuria associated with type 2 diabetes mellitus (Acute) Hyperglycemia due to diabetes mellitus (Acute) Diabetes mellitus with complication in adult patient (Chronic) Type 2 diabetes mellitus with diabetic polyneuropathy (Acute) Iron deficiency (Acute) History of anemia (Chronic) Coronary artery disease (Chronic) w/ dilated cardiomyopathy and (+) stress test ++> PCI/Stenting, 12/29/21 Ischemic cardiomyopathy (Chronic) w/ (+) stress test and PCI/Stenting, 12/29/21 ICD (implantable cardioverter-defibrillator) in place (Acute) ICD, single lead, Med[employer]onic Visia 04/27/2018 [place], [place] Elevated brain natriuretic peptide (BNP) level (Acute) thought to be near baseline, but unclear Hx Low serum albumin (Chronic) Protein WNL per 02/2022 labs Chronic systolic CHF (congestive heart failure) (Acute) EF 20-25% per Jul 2023 Echo ([facility]) Pulmonary hypertension (Acute) 12/29/21. [id number]. Noted during Cardiac cath, [facility]. NYHA Class IV Dermatitis, unspecified (Acute ~11/2021) 12/07/21 Dermatology Chronic posttraumatic stress disorder (Acute) History of posttraumatic stress disorder (PTSD) (Acute) Long Hx, Restarted with counselor, Madison Harris. 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 Rt, November 2020. Lft, 2018 (?) GERD (gastroesophageal reflux disease) (Chronic) PPI COPD (chronic obstructive pulmonary disease) (Chronic) Hx smoker (~10pkyr), PFTs (04/17/21). Disability examination (Acute) PFTs, 04/2021 for Disability 2' COPD. Housing or economic problem (Acute) Nasal polyp (Acute) Pt report based on past ENT 06/02/[address] Haque - surgical correction planned Allergic rhinitis due to allergen (Acute) Nasal turbinate hypertrophy (Acute) Other chronic sinusitis (Acute) Deviated nasal septum (Acute) Seasonal allergies (Acute) Corneal opacification (Acute) OS Proliferative retinopathy of both eyes (Acute) Full PRP OD Vitamin D deficiency (Acute) Secondary hyperparathyroidism (Acute) Medical History CKD stage 3 secondary to diabetes CKD4, October 2022! 08/2019 Cr 1.74 ... Elevated in 2020 2' Inf/ABx/HyperGly .. [ ] re-check 03/2021! SARS-CoV-2 positive (~04/14/22) Dehydration Hypercalcemia (~02/21/22) Elevated troponin Positive cardiac stress test 2021 .. Cath, with stent placement + 12/29/21. Edema of abdomen Neck pain acute .. due to sleeping on sofa?? coughing? Decreased range of motion (ROM) of right knee Flexion ok; Extension is difficult .. Continues to work with PT Psoriasis Carpal tunnel syndrome of left wrist Cubital bursitis of right elbow Diabetic foot ulcer associated with type 2 diabetes mellitus RESOLVED with amputation. 09/30/20-R heel w/cellulitis-Dr Kevin,DPM 10/16/20 Debridement by Podiatry 10/30/20 [facility] Vascular - RIGHT Heel Ulcer - cont close wound care by Podiatry Hx: recurrent pneumonia walking pneumonia most vines x 3 years Cervical neuropathy Tendonitis of long head of biceps brachii of right shoulder Bursitis of right shoulder Right shoulder pain Acute on chronic issue: now with elbow and hand pain (ulnar), with tingling. Finger pain, left Could this be gout? No injury. Trial Naproxen. Nasal polyps Erectile dysfunction Testicular cancer Surgical History S/P cardiac catheterization 12/29/21 [facility] (Dr. Jerry Ramírez). PCI (via R radial artery) of mid-LAD. Balloon angioplasty and lithotripsy. 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 History of amputation of left lower extremity History of amputation of great toe Right History of cardiac defibrillator placement History of cataract removal with insertion of prosthetic lens (~03/02/18) Right History of gastric bypass (~07/01/14) History of cystoscopy (~12/25/13) History of tonsillectomy (~1979) History of orchiectomy, unilateral (~06/1999) Right Family History Mother Diabetes Father Diabetes Heart disease Hypertension Sister Diabetes Brother Diabetes Brother Diabetes Heart disease Hypertension Social History Smoking/Tobacco Use Status: Former Tobacco Use tobacco type: cigarettes Quit Date: 07/18/98 Tobacco: How many years used: 10 Smokeless tobacco user: chewing tobacco Quit status: considering quitting Smoking risk assessment performed?: Yes Alcohol Intake: current Alcohol Intake frequency: 0-2 drinks per day Alcohol type: hard liquor Drug use: Never Substance use type: does not use Adopted: No Caregiver/Support person: No Foster care: No Household members: significant other Housing: apartment Do you need help understanding health information?: Rarely current occupation: Unemployed Sexually active: Yes Do you think of yourself as: straight/heterosexual Current gender identity: male Do you feel safe at home: Yes (getting out of relationship) Do you feel safe in your relationship?: Yes Additional Social history: moving out Time Spent with Patient Time Spent with Patient: <45 minutes Time was spent: preparing to see the patient(eg.review tests), obtaining and/or reviewing separately otained hiistory, ordering medications,tests, procedures, referring, communicating with other health manager progressive care, indepentently interpreting results, counseling the patient and care coordination
--- NOTE | 2024-06-05 11:42 | CMDISCH_ITS ---
Date of service: 06/05/24 Time of Service: 11:42 LACE Index Scoring Tool Questions: Length of Stay (in days): 7 - 13 Was the patient admitted via the E.D.?: Yes Comorbidities: Previous M.I., PVD, Diabetes w/o Complication, Congestive Heart Failure, Chronic Pulmonary Disease and Liver or Renal Disease E.D. Visits: 2 Answers: Total Score: 15 Risk of Readmission: High Risk Care Management Discharge Plan Reason for Hospitalization: CHF Discharge Plan: Leroy will be discharged home with no new services. He will follow up with his PCP and plan of care. Transportation has been coordinated by CM with [facility] for Leroy's return home today and for his cardiology appointment at 1 pm tomorrow. Patient/Family Education Needs: Review discharge instructions, limitations, follow up plan and discuss Ask Me Three Services Needed at Discharge: Transportation SDOH Health Related Social Needs: Health related social needs housing instability, house d, with risk of homelessness(Z59.431)
[2024-06-05] MEDS: Patch Removal 1 EACH TP (15:26)
== END 2024-06-05 13:15 | disposition home or self-care (01) | DRG 291 ==
LOC: ER 19:18 → MS 20:54
PROVIDERS: Family Medicine; Hospitalist; Admitting Provider General Practice; Emergency Provider Student in an Organized Health Care Education/Training Program; PCP Student in an Organized Health Care Education/Training Program; Visit Provider General Practice
DX: I13.0 Hypertensive heart and chronic kidney disease with heart failure and stage 1 through stage 4 chronic kidney disease, or unspecified chronic kidney disease; I50.23 Acute on chronic systolic (congestive) heart failure; N18.4 Chronic kidney disease, stage 4 (severe); Z59.811 Housing instability, housed, with risk of homelessness; R74.8 Abnormal levels of other serum enzymes; I25.10 Atherosclerotic heart disease of native coronary artery without angina pectoris; E11.22 Type 2 diabetes mellitus with diabetic chronic kidney disease; E87.6 Hypokalemia; E83.39 Other disorders of phosphorus metabolism; D63.1 Anemia in chronic kidney disease; I25.2 Old myocardial infarction; J44.9 Chronic obstructive pulmonary disease, unspecified; E11.65 Type 2 diabetes mellitus with hyperglycemia; Z89.512 Acquired absence of left leg below knee; Z89.511 Acquired absence of right leg below knee; Z79.4 Long term (current) use of insulin; E11.3593 Type 2 diabetes mellitus with proliferative diabetic retinopathy without macular edema, bilateral; E11.42 Type 2 diabetes mellitus with diabetic polyneuropathy; I25.5 Ischemic cardiomyopathy; Z95.810 Presence of automatic (implantable) cardiac defibrillator; F43.12 Post-traumatic stress disorder, chronic; I27.20 Pulmonary hypertension, unspecified; Z98.84 Bariatric surgery status; F17.220 Nicotine dependence, chewing tobacco, uncomplicated; Z85.47 Personal history of malignant neoplasm of testis; Z23 Encounter for immunization
CPT/HCPCS: 00123; 36415; 36416; 51702; 80048; 80053; 82962; 85027; 87637; 90656; 93005; 93308; 94640; 96374; 99285; 71045; 82140; 83735; 83880; 84100; 84484; 85025; 93010; 94664; 94760; 99222; 99231; 99232; 99239; J1644; J1815; J1940; J3490

== ENCOUNTER → 2024-06-06 13:02 | Outpatient (BNVA) | payer MEDICARE, MEDICAID, SELFPAY | PROVIDERS: PCP Student in an Organized Health Care Education/Training Program; Visit Provider Student in an Organized Health Care Education/Training Program | DX: Z95.810 Presence of automatic (implantable) cardiac defibrillator (principal); I50.22 Chronic systolic (congestive) heart failure | CPT/HCPCS: 93282 ==

== ENCOUNTER → 2024-06-21 09:26 | Outpatient (BNVA) | payer MEDICARE, MEDICAID, SELFPAY | PROVIDERS: PCP Student in an Organized Health Care Education/Training Program; Visit Provider Internal Medicine Cardiovascular Disease | DX: N18.5 Chronic kidney disease, stage 5 (principal); I25.10 Atherosclerotic heart disease of native coronary artery without angina pectoris; I50.22 Chronic systolic (congestive) heart failure | CPT/HCPCS: 99214 ==

== ENCOUNTER 2024-06-21 10:48 | Outpatient (CLI) | payer MEDICARE, MEDICAID, SELFPAY ==
[2024-06-21 10:43] LABS: Abs Immature Grans 0.04 10^3/uL (0.0-0.06); Absolute Basophil Count 0.03 10^3/uL (0.0-0.2); Absolute Eosinophil Count 0.13 10^3/uL (0.0-0.7); Absolute Lymphocyte Count 0.53 10^3/uL (1.2-3.4); Absolute Monocyte Count 0.83 10^3/uL (0.1-0.8); Absolute Neutrophil Count 6.89 10^3/uL (1.2-6.7); Basophils % 0.4 %; Eosinophils % 1.5 %; HCT 40.8 % (40.0-50.0); HGB 13.8 g/dL (13.5-17.5); Immature Grans % 0.5 %; Lymphocytes % 6.3 %; MCH 32.5 pg (27.0-33.0); MCHC 33.8 % (32.0-36.0); MCV 96 fL (80-95); MPV 10.8 fL (8.0-11.0); Monocytes % 9.8 %; Neutrophils % 81.5 %; Platelet Count 183 10^3/uL (130-400); RBC 4.25 10^6/uL (4.36-5.78); RDW 14.6 % (11.8-14.1); RDW-SD 50.4 fL; WBC 8.45 10^3/uL (4.4-10.8)
[2024-06-21 11:29] LABS: Anion Gap 10.7 mmol/L (3-11); CO2 28.3 mmol/L (21.0-32.0); Calcium 8.6 mg/dL (8.5-10.1); Chloride 82 mmol/L (98-107); Estimated GFR 16.95 (mL/min/1.73m2); Glucose 256 mg/dL (74-106); Magnesium 2.4 mg/dL (1.8-2.4)
[2024-06-21 11:31] LABS: Iron 87 ug/dL (65-175); Total Iron Binding Capacity 340 ug/dL (250-450); Transferrin Sat 26 % (20-55)
[2024-06-21 12:15] LABS: Albumin 3.1 g/dL (3.4-5.0); Anion Gap 13.1 mmol/L (3-11); CO2 26.9 mmol/L (21.0-32.0); Calcium 8.3 mg/dL (8.5-10.1); Chloride 82 mmol/L (98-107); Estimated GFR 16.95 (mL/min/1.73m2); Ferritin 91 ng/mL (26-388); Glucose 257 mg/dL (74-106); PHOSPHORUS 7.7 mg/dL (2.6-4.7)
[2024-06-21 12:34] LABS: BUN 95 mg/dL (7-18)
[2024-06-21 12:35] LABS: Sodium 121 mmol/L (136-145)
[2024-06-21 13:05] LABS: BUN 95 mg/dL (7-18)
[2024-06-21 13:06] LABS: Sodium 122 mmol/L (136-145)
== END 2024-06-21 10:49 | disposition home or self-care (01) ==
LOC: LBO 10:49
PROVIDERS: PCP Student in an Organized Health Care Education/Training Program; Visit Provider Internal Medicine
DX: E11.59 Type 2 diabetes mellitus with other circulatory complications (principal); I10 Essential (primary) hypertension; N18.4 Chronic kidney disease, stage 4 (severe); Z91.89 Other specified personal risk factors, not elsewhere classified; D63.1 Anemia in chronic kidney disease
CPT/HCPCS: 36415; 80048; 80069; 99214; 82728; 83540; 83550; 83735; 83970; 85025

== ENCOUNTER 2024-06-25 17:51 | Emergency (ER) | payer MEDICARE, MEDICAID, SELFPAY ==
[2024-06-25] VITALS (46 sets, daily range): BP systolic 115–197; BP diastolic 61–102; PULSE 68–110; RESP 11–34; TEMP 36.1–36.2; O2SAT 94–99
--- NOTE | 2024-06-25 17:45 | RT.EKG_ITS ---
APPROVED REPORT Exam: Resting ECG Reason for Exam: Weakness Patient Location: E HR:75 bpm ECG Measurements Heart Rate 75 AXIS ND 215 P 47 QRSd 130 QRS 130 QT 409 T -70 QTc 457 Conclusion Sinus rhythm...normal P axis, V-rate 60- 99 Atrial premature complex...SV complex w/ short R-R interval Prolonged ND interval...ND >210, V-rate 50- 90 Probable left atrial enlargement...P >50mS, <-0.10mV V1 RBBB and LPFB...QRSd >120mS, axis(90,210) Consider anteroseptal infarct...Q >30mS, dimin R, V1-V2
[2024-06-25 19:13] LABS: BE (Venous) 1 mmol/L (-2-3); HCO3 (Venous) 27 mmol/L (23-28); O2 Sat (Venous) 42 %; TCO2 (Venous) 25 mmol/L (24-29); pCO2 (Venous) 50 mmHg (41-51); pH (Venous) 7.34 (7.31-7.41); pO2 (Venous) 27 mmHg
[2024-06-25 19:14] LABS: Abs Immature Grans 0.08 10^3/uL (0.0-0.06); Absolute Basophil Count 0.01 10^3/uL (0.0-0.2); Absolute Lymphocyte Count 0.49 10^3/uL (1.2-3.4); Basophils % 0.1 %; Eosinophils % 0.5 %; HCT 39.1 % (40.0-50.0); HGB 13.8 g/dL (13.5-17.5); Immature Grans % 0.7 %; Lymphocytes % 4.5 %; MCH 32.9 pg (27.0-33.0); MCHC 35.3 % (32.0-36.0); MCV 93 fL (80-95); MPV 10.8 fL (8.0-11.0); Monocytes % 8.2 %; Platelet Count 150 10^3/uL (130-400); RBC 4.19 10^6/uL (4.36-5.78); RDW 14.4 % (11.8-14.1); RDW-SD 49.1 fL; WBC 10.95 10^3/uL (4.4-10.8)
[2024-06-25 19:19] LABS: Absolute Eosinophil Count 0.05 10^3/uL (0.0-0.7); Absolute Neutrophil Count 9.42 10^3/uL (1.2-6.7); ESR 8 mm/hr (0-20)
--- NOTE | 2024-06-25 19:26 | NUR.NOTE ---
Pt aware we need urine, he has a urinal but unable to give a sample at this time, SHLOMO
[2024-06-25 19:42] LABS: Procalcitonin 0.32 ng/mL
[2024-06-25 19:45] LABS: ALT 16 U/L (16-63); AST 16 U/L (15-37); Albumin 3.1 g/dL (3.4-5.0); Alkaline Phosphatase 137 U/L (46-116); Anion Gap 15.3 mmol/L (3-11); Bilirubin, Total 1.08 mg/dL (0.2-1.0); C-Reactive Protein 2.73 mg/dL (<or=0.5); CO2 24.7 mmol/L (21.0-32.0); Calcium 7.7 mg/dL (8.5-10.1); Chloride 76 mmol/L (98-107); Estimated GFR 14.33 (mL/min/1.73m2); Glucose 172 mg/dL (74-106); Magnesium 2.6 mg/dL (1.8-2.4); Potassium 4.1 mmol/L (3.5-5.1); Total Protein 6.9 g/dL (6.4-8.2)
[2024-06-25 19:52] LABS: CREATININE 4.6 mg/dL (0.70-1.30); Sodium 116 mmol/L (136-145)
[2024-06-25 20:03] LABS: PHOSPHORUS 9.1 mg/dL (2.6-4.7)
[2024-06-25 20:04] LABS: BUN 114 mg/dL (7-18)
[2024-06-25 20:21] LABS: Lactate 1.3 mmol/L (0.6-1.4)
--- NOTE | 2024-06-25 20:22 | DI.RAD_ITS ---
Exam(s) XR CHEST 2V PA LATERAL EXAM: XR CHEST 2V PA LATERAL CLINICAL HISTORY: shortness of breath, chf, weakness. TECHNIQUE: 2D digital imaging was performed. COMPARISON: No exams were available for comparison FINDINGS: 2 views: Again noted is cardiomegaly and unipolar left subclavian pacemaker lead tip in RV. Mediastinum is not widened. Mild increased markings noted in the lung klein but no confluent infiltrates nor obvious pleural eff usions. No pneumothorax. No fractures. No airspace pulmonary edema. IMPRESSION: As above but without significant radiographic change compared to 05/29/2024. DATA REPOSITORY: RADIATION DOSE DELIVERED:
--- NOTE | 2024-06-25 20:22 | DI.RAD_ITS ---
Exam(s) XR TIB/FIB LT EXAM: XR TIB/FIB LT CLINICAL HISTORY: excoriation left lower leg with erythema at amp si. TECHNIQUE: 2D digital imaging was performed. COMPARISON: CR XR FEMUR LT from 04/17/2020 CR XR KNEE RT 2V AP,LAT from 10/22/2021 FINDINGS: Two views: Below-knee amputation again noted. There is abundant generalized soft tissue swelling and there is s uggestion soft tissue gas increased from previous. Increased density in the tibia again noted. May be related to previously treated osteomyelitis.. Cannot exclude ongoing active osteomyelitis. The stump skin ulcer which was evident in 2019 is no longer seen. Vascular calcification again noted . There is no radiopaque foreign body. IMPRESSION: As above. Recommend further imaging to rule out soft tissue abscess and osteomyelitis. DATA REPOSITORY: RADIATION DOSE DELIVERED:
[2024-06-25 20:27] LABS: NT-proBNP > 35000 pg/mL (<300)
[2024-06-25 20:36] LABS: Creatine Kinase 63 U/L (39-308)
[2024-06-25 20:37] LABS: Troponin I 652 ng/L (<or=76)
[2024-06-25 21:07] LABS: Bilirubin Negative (Negative); Blood Negative (Negative); Clarity Clear (Clear); Glucose 100 mg/dL (Negative); Ketones Negative (Negative); Leukocyte Esterase Negative (Negative); Nitrite Negative (Negative); Specific Gravity 1.015 (1.005-1.025); Urobilinogen 0.2 mg/dL (Up to 0.2)
[2024-06-25 21:17] LABS: Epithelial Cells Few HPF (Negative); RBC 0-2 HPF (0-2); WBC 0-2 HPF (0-5)
[2024-06-25 21:18] LABS: Bacteria Few HPF (Negative); C & S Indicated? No; Casts 0-2 Coarse Granular LPF (Negative); Crystals Few Amorphous HPF (Negative); Mucus Negative (Negative); Other Cells Few Renal (Negative)
[2024-06-25 21:24] LABS: Troponin I 635 ng/L (<or=76)
--- NOTE | 2024-06-25 21:36 | DI.VRAD_ITS ---
PROCEDURE INFORMATION: Exam: XR Left Tibia and Fibula Exam date and time: 06/25/2024 8:19 PM Age: 54 years old Clinical indication: Other: Excoriation left lower leg with erythema at amp si; Prior surgery; Surgery date: 6+ months TECHNIQUE: Imaging protocol: Radiologic exam of the left tibia and fibula. Views: 2 views. COMPARISON: CT LOWER EXTREMITY LT WO 05/14/2020 10:23 AM FINDINGS: Bones/joints: Prior below-knee amputation with moderate sclerosis and smoothly marginated lobular contour irregularity at the tibial resection margin which is similar to CT 05/14/2020. Mildly increased medullary sclerosis and endosteal reactive changes in the distal 5 cm however. Mild chronic periosteal calcification along the medial aspect of the proximal tibial metadiaphysis is stable from 05/14/2020. Distal fibular resection margin is unchanged in appearance from 05/14/2020, with mild chronic periosteal calcification along the proximal fibular diaphysis which is unchanged. Mild patellofemoral osteoarthritic spurring. Soft tissues: Nonspecific moderate subcutaneous soft tissue swelling throughout the visualized left leg. No soft tissue air or foreign body. Vasculature: Severe calcific atherosclerosis. IMPRESSION: 1. Prior BKA. 2. Suspected increased intramedullary sclerosis and endosteal reaction the distal 5 cm of the tibial remnant compared to 05/14/2020. This could represent chronic remnant changes of previously treated osteomyelitis. Cannot exclude chronic active infection however. 3. Fibula unchanged from 2020. 4. Moderate nonspecific soft tissue swelling. No soft tissue air or foreign body. 5. Severe calcific atherosclerosis. Dictated and Authenticated by: Koby Medina MD. Ordering:BINA Pool MD
--- NOTE | 2024-06-25 21:41 | ED.GENADUL_ITS ---
Discharge Plan Disposition Patient Disposition: Transfer-Acute Inpatient Care Specific Acute Inpt Facility: [facility] Discharge Details Clinical Impression: Acute hyponatremia, CKD (chronic kidney disease), Hyperphosphatemia, CHF (congestive heart failure) Primary Care Provider: Candice Perez ED Provider: Corine Mattson Home Meds and New Rx's Prescriptions: No Action (DME) Left Outer Sleeve See Rx Instructions .Route .MEDSUPPLY Qty: 1 0RF Rx Instructions: As directed (DME) Right prosthetic socket See Rx Instructions .Route .MEDSUPPLY Qty: 1 0RF Rx Instructions: As directed (DME) glucometer WITH MATCHING TEST STRIPS See Rx Instructions .Route .MEDSUPPLY Qty: 1 0RF Rx Instructions: Using TID until CGM available, then as back-up (DME) lancets Misc See Rx Instructions .ROUTE .MEDSUPPLY Qty: 300 3RF Rx Instructions: To check blood glucose three times daily. On insulin. Dispense covered brand. (DME) Sleeve, Left BKA See Rx Instructions .Route .MEDSUPPLY Qty: 1 0RF Rx Instructions: Per measure & fit by [employer] (DME) Sleeve, Right BKA See Rx Instructions .Route .MEDSUPPLY Qty: 1 0RF Rx Instructions: Per measure & fit by [employer] trazodone 50 mg tablet 50 mg PO QHS PRN (Reason: sleep) Qty: 30 6RF (DME) Dexcom G7 Cafeteria Supervisor Misc See Rx Instructions .Route Qty: 1 3RF Rx Instructions: As directed to manage DM, E11.8 - 36 Sensors/year. A1C < 7.5 torsemide 20 mg tablet 40 mg PO BID Qty: 360 3RF (DME) BKA Prosthetics, B/L See Rx Instructions .Route .MEDSUPPLY Qty: 2 1RF Rx Instructions: Measurement/fitting TBD by [employer] unless out-sourced levalbuterol tartrate 45 mcg/actuation HFA aerosol inhaler 2 inh inhalation Q6H Qty: 15 1RF Rx Instructions: TRIAL LEV-ALB INHALER (DME) Amputation Compression Sleeve See Rx Instructions .Route .MEDSUPPLY Qty: 1 0RF Rx Instructions: Please provide and fit a compression sleeve to the left BKA stump for appropriate prosthesis wear. (DME) fore arm cuff crutches See Rx Instructions .Route .MEDSUPPLY Qty: 1 0RF Rx Instructions: dispense 1 pair acetaminophen 325 mg tablet 650 mg PO Q4H PRN (Reason: fever or pain) Qty: 180 1RF azelastine 137 mcg (0.1 %) aerosol,spray See Rx Instructions intranasal BID Qty: 30 1RF Rx Instructions: 1-2 sprays intranasal twice a day; administer into each nostril (DME) FreeStyle Lusi 2 [place] Misc See Rx Instructions .ROUTE .MEDSUPPLY Qty: 1 0RF Rx Instructions: As directed (DME) FreeStyle Luis 2 Sensor Kit See Rx Instructions .ROUTE .MEDSUPPLY Qty: 6 3RF Rx Instructions: As directed fluticasone propionate [Allergy Relief (fluticasone)] 50 mcg/actuation spray,suspension 1 spray intranasal DAILY Qty: 16 1RF Rx Instructions: administer into each nostril (DME) Contour Test Strips Strip See Rx Instructions .Route Qty: 100 2RF Rx Instructions: DX E11.9 Check BS TID use as back up if CGM fails. Farxiga 5 mg tablet See Rx Instructions .ROUTE .COMPLEX Qty: 28 10RF Dose Instruction: TAKE 1 TABLET BY MOUTH DAILY FOR TYPE 2 DIABETES MELLITUS NOT AT GOAL, STAGE 3 CKD Rx Instructions: TAKE 1 TABLET BY MOUTH DAILY FOR TYPE 2 DIABETES MELLITUS NOT AT GOAL, STAGE 3 CKD ascorbic acid (vitamin C) 1,000 mg tablet 500 mg PO DAILY Qty: 90 3RF Rx Instructions: Doses exceeding 500mg daily will invalidate CGM sensor. 02/04/22 EO Spiriva Respimat 2.5 mcg/actuation mist See Rx Instructions .ROUTE .COMPLEX Qty: 4 3RF Dose Instruction: INHALE 2 PUFFS BY MOUTH DAILY Rx Instructions: INHALE 2 PUFFS BY MOUTH DAILY (DME) pen needle, diabetic [BD Ultra-Fine Mini Pen Needle] 31 gauge x 3/16 needle See Rx Instructions .Route Qty: 300 3RF Rx Instructions: As directed for injecting Lantus/humalog to maintain A1C < 7, DM E11.8 clopidogrel 75 mg tablet 75 mg PO DAILY Qty: 30 5RF Rx Instructions: take separately from reflux medication. sodium bicarbonate 650 mg tablet 650 mg PO BID cholecalciferol (vitamin D3) 25 mcg (1,000 unit) capsule 25 mcg PO DAILY Qty: 90 3RF cyanocobalamin (vitamin B-12) 1,000 mcg capsule 1,000 mcg PO DAILY Qty: 90 3RF atorvastatin 10 mg tablet 10 mg PO DAILY Qty: 90 3RF cetirizine 10 mg tablet 10 mg PO DAILY Qty: 90 3RF aspirin 81 mg tablet,delayed release (DR/EC) 81 mg PO DAILY Qty: 90 3RF carvedilol 12.5 mg tablet 12.5 mg PO BID Qty: 180 3RF Rx Instructions: must administer with a meal/food (DME) Dexcom G7 Sensor Device See Rx Instructions .Route Qty: 3 11RF Rx Instructions: For A1C < 7.5, DM E11.8 (36 per year) insulin glargine 100 unit/mL (3 mL) insulin pen 36 unit subcut QPM Qty: 15 3RF Rx Instructions: 01/27/24-pt reports this is what he's taking-LH insulin lispro [Humalog KwikPen Insulin] 100 unit/mL insulin pen 1 sliding scale dose subcut USEASDIRECTD MDD 50 units Qty: 15 3RF Rx Instructions: [facility] [place] correction of 1u:30mg/dl, starting at 130mg/dl per pt. 01/06/21 pantoprazole 40 mg tablet,delayed release (DR/EC) 40 mg PO DAILY Qty: 90 3RF Dupixent Syringe 300 mg/2 mL syringe 300 mg SUBCUT Q2W indapamide 2.5 mg tablet 5 mg PO DAILY clobetasol 0.05 % spray,non-aerosol 1 applic topical BID PRN Rx Instructions: not to exceed 26 sprays per single application calcium acetate(phosphat bind) 667 mg Capsule 667 mg PO BID@0800,1700 Qty: 20 0RF Discharge Data Discharge Date/Time-TO BE ENTERED AT DEPARTURE: 06/26/24 07:47 HPI General Date/Time Provider Initiated Documentation: 06/25/24 18:01 . HPI Narrative: This complex 54-year-old gentleman with history of CKD, non-ST elevation MN, bilateral below the knee amputations, chronic kidney disease, CHF, diabetes, ICD, ischemic cardiomyopathy, pulmonary hypertension, COPD presents with report of progressive weakness and lightheadedness with weight gain. Patient was reportedly admitted and diarrhea just several weeks ago and since that time has continued to decline. He states that he saw his house designer on the fifth and his torsemide was increased to 40 twice daily, however he was unable to fill this medication secondary to transportation and resources. He has been taking 20 mg of torsemide consistently daily. He denies any change in medications aside from them starting calcium during his last admission. Patient denies any chest pain, shortness of breath, significant peripheral edema. He does state he has had some redness and discomfort to his left leg. He states that he has prosthetic devices but they are uncomfortable and they rub, his left has caused an abrasion which prevents him from using it regularly. He denies any fever or chills. He denies alcohol consumption and has been taking his medications regularly per patient. He is unsure as to the amount of weight gain. Related Data Home Medications ?Medication ?Instructions ?Recorded ?Confirmed Amputation Compression Sleeve #1 ea 01/26/21 06/25/24 fore arm cuff crutches #1 ea 06/07/21 06/25/24 Left Outer Sleeve #1 ea 12/07/21 06/25/24 acetaminophen 325 mg tablet 650 mg (2 x 325 mg) PO Q4H PRN 04/02/22 06/25/24 fever or pain #180 tabs azelastine 137 mcg (0.1 %) nasal See Rx Instructions intranasal BID 04/02/22 06/25/24 spray #30 mL flash glucose scanning reader #1 ea 04/02/22 06/25/24 (FreeStyle Luis 2 [place]) flash glucose sensor (FreeStyle #6 ea 04/02/22 06/25/24 Luis 2 Sensor kit) Right prosthetic socket #1 ea 05/13/22 06/25/24 fluticasone propionate 50 1 spray intranasal DAILY #16 grams 12/02/22 06/25/24 mcg/actuation nasal spray,suspension (Allergy Relief (fluticasone)) blood-glucose meter,continuous #1 ea 01/25/23 06/25/24 (LIBCAST G7 Cafeteria Supervisor) glucometer WITH MATCHING TEST #1 ea 03/10/23 06/25/24 STRIPS lancets #300 ea 03/10/23 06/25/24 blood sugar diagnostic (Contour #100 ea 03/18/23 06/25/24 Test Strips) ascorbic acid (vitamin C) 1,000 mg 500 mg (1/2 x 1,000 mg) PO DAILY 08/09/23 06/25/24 tablet #90 tabs dapagliflozin propanediol 5 mg See Rx Instructions .Route 08/09/23 06/25/24 tablet (Farxiga) .COMPLEX #28 tabs tiotropium bromide 2.5 See Rx Instructions .Route 10/10/23 06/25/24 mcg/actuation mist for inhalation .COMPLEX #4 grams (Spiriva Respimat) Sleeve, Left BKA #1 ea 10/15/23 06/25/24 Sleeve, Right BKA #1 ea 10/15/23 06/25/24 pen needle, diabetic 31 gauge x #300 ea 10/20/23 06/25/24 3/16 (BD Ultra-Fine Mini Pen Needle) dupilumab 300 mg/2 mL subcutaneous 300 mg subcut Q2W 10/29/23 06/25/24 syringe ([employer]) BKA Prosthetics, B/L #2 ea 01/21/24 06/25/24 clopidogrel 75 mg tablet 75 mg PO DAILY #30 tabs 01/26/24 06/25/24 sodium bicarbonate 650 mg tablet 650 mg PO BID 01/27/24 06/25/24 aspirin 81 mg tablet,delayed 81 mg PO DAILY #90 tabs 02/21/24 06/25/24 release atorvastatin 10 mg tablet 10 mg PO DAILY #90 tabs 02/21/24 06/25/24 carvedilol 12.5 mg tablet 12.5 mg PO BID #180 tabs 02/21/24 06/25/24 cetirizine 10 mg tablet 10 mg PO DAILY #90 tabs 02/21/24 06/25/24 cholecalciferol (vitamin D3) 25 25 mcg PO DAILY #90 caps 02/21/24 06/25/24 mcg (1,000 unit) capsule cyanocobalamin (vitamin B-12) 1,000 mcg PO DAILY #90 caps 02/21/24 06/25/24 1,000 mcg capsule blood-glucose sensor (Dexcom G7 #3 ea 02/25/24 06/25/24 Sensor device) insulin glargine 100 unit/mL (3 36 unit (0.36 mL) subcut QPM #15 mL 03/10/24 06/25/24 mL) subcutaneous pen insulin lispro 100 unit/mL 1 sliding scale dose subcut 03/10/24 06/25/24 subcutaneous pen (Humalog KwikPen USEASDIRECTD DM, E11.8 .. to jeep (U-100) Insulin) A1C < 7.5 #15 mL indapamide 2.5 mg tablet 5 mg PO DAILY 05/03/24 06/25/24 levalbuterol tartrate 45 2 inh inhalation Q6H #15 grams 05/09/24 06/25/24 mcg/actuation aerosol inhaler clobetasol 0.05 % topical spray 1 applic topical BID PRN 05/30/24 06/25/24 pantoprazole 40 mg tablet,delayed 40 mg PO DAILY #90 tabs 05/31/24 06/25/24 release calcium acetate(phosphat bind) 667 667 mg PO BID@0800,1700 #20 caps 06/05/24 06/25/24 mg capsule trazodone 50 mg tablet 50 mg PO QHS PRN sleep #30 tabs 06/12/24 06/25/24 torsemide 20 mg tablet 40 mg (2 x 20 mg) PO BID #360 tabs 06/21/24 06/25/24 Previous Rx's ?Medication ?Instructions ?Recorded Amputation Compression Sleeve #1 ea 01/26/21 fore arm cuff crutches #1 ea 06/07/21 Left Outer Sleeve #1 ea 12/07/21 acetaminophen 325 mg tablet 650 mg (2 x 325 mg) PO Q4H PRN 04/02/22 fever or pain #180 tabs azelastine 137 mcg (0.1 %) nasal See Rx Instructions intranasal BID 04/02/22 spray #30 mL flash glucose scanning reader #1 ea 04/02/22 (FreeStyle Luis 2 [place]) flash glucose sensor (FreeStyle #6 ea 04/02/22 Luis 2 Sensor kit) Right prosthetic socket #1 ea 05/13/22 fluticasone propionate 50 1 spray intranasal DAILY #16 grams 12/02/22 mcg/actuation nasal spray,suspension (Allergy Relief (fluticasone)) blood-glucose meter,continuous #1 ea 01/25/23 (LIBCAST G7 Cafeteria Supervisor) glucometer WITH MATCHING TEST #1 ea 03/10/23 STRIPS lancets #300 ea 03/10/23 blood sugar diagnostic (Contour #100 ea 03/18/23 Test Strips) ascorbic acid (vitamin C) 1,000 mg 500 mg (1/2 x 1,000 mg) PO DAILY 08/09/23 tablet #90 tabs dapagliflozin propanediol 5 mg See Rx Instructions .Route 08/09/23 tablet (Farxiga) .COMPLEX #28 tabs tiotropium bromide 2.5 See Rx Instructions .Route 10/10/23 mcg/actuation mist for inhalation .COMPLEX #4 grams (Spiriva Respimat) Sleeve, Left BKA #1 ea 10/15/23 Sleeve, Right BKA #1 ea 10/15/23 pen needle, diabetic 31 gauge x #300 ea 10/20/2309/30 (BD Ultra-Fine Mini Pen Needle) BKA Prosthetics, B/L #2 ea 01/21/24 clopidogrel 75 mg tablet 75 mg PO DAILY #30 tabs 01/26/24 aspirin 81 mg tablet,delayed 81 mg PO DAILY #90 tabs 02/21/24 release atorvastatin 10 mg tablet 10 mg PO DAILY #90 tabs 02/21/24 carvedilol 12.5 mg tablet 12.5 mg PO BID #180 tabs 02/21/24 cetirizine 10 mg tablet 10 mg PO DAILY #90 tabs 02/21/24 cholecalciferol (vitamin D3) 25 25 mcg PO DAILY #90 caps 02/21/24 mcg (1,000 unit) capsule cyanocobalamin (vitamin B-12) 1,000 mcg PO DAILY #90 caps 02/21/24 1,000 mcg capsule blood-glucose sensor ([employer] G7 #3 ea 02/25/24 Sensor device) insulin glargine 100 unit/mL (3 36 unit (0.36 mL) subcut QPM #15 mL 03/10/24 mL) subcutaneous pen insulin lispro 100 unit/mL 1 sliding scale dose subcut 03/10/24 subcutaneous pen (Humalog KwikPen USEASDIRECTD DM, E11.8 .. to jeep (U-100) Insulin) A1C < 7.5 #15 mL levalbuterol tartrate 45 2 inh inhalation Q6H #15 grams 05/09/24 mcg/actuation aerosol inhaler pantoprazole 40 mg tablet,delayed 40 mg PO DAILY #90 tabs 05/31/24 release calcium acetate(phosphat bind) 667 667 mg PO BID@0800,1700 #20 caps 06/05/24 mg capsule trazodone 50 mg tablet 50 mg PO QHS PRN sleep #30 tabs 06/12/24 torsemide 20 mg tablet 40 mg (2 x 20 mg) PO BID #360 tabs 06/21/24 Allergies Allergy/AdvReac Type Severity Reaction Status Date / Time tramadol AdvReac Severe renal Verified 06/25/24 18:01 failure Poor Renal Function AdvReac Unknown renal Uncoded 06/25/24 18:01 failure General Stated Complaint: GenMedical RAMON: 3 Exam Narrative Exam Narrative: Alert and oriented chronically ill-appearing 54-year-old gentleman, moist mucous membranes, pupils equal round reactive to light and accommodation, crackles at bases, no respiratory distress, no murmur, cardiac rate rhythm regular, no abdominal tenderness, ecchymosis on abdomen consistent with insulin injection, alert and oriented x 4, 1+ edema to bilateral lower extremities, left lower extremity at amputation site laterally in the 4 o'clock position with excoriation and spreading redness with drainage to this area. Approximately 4 inch area of erythema surrounding, no lymphangitis, warm to touch, no crepitus Course Vital Signs Vital signs: Vital Signs Temperature 36.1 C L 06/25/24 17:57 Pulse 75 06/25/24 17:57 Respiratory Rate 12 06/25/24 17:57 Blood Pressure 140/67 06/25/24 17:57 Pulse Oximetry 97 06/25/24 17:57 Temperature 36.2 C L 06/25/24 18:00 Temperature Source Oral 06/25/24 18:00 Pulse 75 06/25/24 21:21 Pulse 75 06/25/24 21:10 Respiratory Rate 13 06/25/24 21:10 Respiratory Effort Normal, Non-Labored 06/25/24 18:21 Respiratory Depth Normal 06/25/24 18:21 Respiratory Pattern Normal 06/25/24 18:21 Blood Pressure 140/98 H 06/25/24 21:21 Blood Pressure Mean 108 06/25/24 21:21 Blood Pressure Position Sitting 06/25/24 18:00 Pulse Oximetry 96 06/25/24 21:21 Oxygen Delivery Method Room Air 06/25/24 18:00 Oxygen Flow Rate 0 06/25/24 17:57 Pain Level 2 06/25/24 18:00 Lab/Test Results Lab/Test Results: 06/25/24 19:35 Blood Blood Culture - Pending 06/25/24 19:05 Blood Blood Culture - Pending Laboratory Tests Range/Units 06/25/24 06/25/24 06/25/24 19:05 20:08 20:11 WBC (4.4-10.8) 10^3/uL 10.95 H RBC (4.36-5.78) 10^6/uL 4.19 L Hgb (13.5-17.5) g/dL 13.8 Hct (40.0-50.0) % 39.1 L MCV (80-95) fL 93 MCH (27.0-33.0) pg 32.9 MCHC (32.0-36.0) % 35.3 RDW (11.8-14.1) % 14.4 H Plt Count (130-400) 10^3/uL 150 MPV (8.0-11.0) fL 10.8 Immature Gran % % 0.7 Neutrophils % % 86.0 Lymphocytes % % 4.5 Monocytes % % 8.2 Eosinophils % % 0.5 Basophils % % 0.1 Nucleated RBC % (0.0-0.3) % 0.0 Absolute Neutrophils (1.2-6.7) 10^3/uL 9.42 H Absolute Lymphocytes (1.2-3.4) 10^3/uL 0.49 L Absolute Monocytes (0.1-0.8) 10^3/uL 0.90 H Absolute Eosinophils (0.0-0.7) 10^3/uL 0.05 Absolute Basophils (0.0-0.2) 10^3/uL 0.01 ESR (0-20) mm/hr 8 VBG pH (7.31-7.41) 7.34 VBG pCO2 (41-51) mmHg 50 VBG pO2 mmHg 27 VBG HCO3 (23-28) mmol/L 27 VBG Total CO2 (24-29) mmol/L 25 VBG O2 Saturation % 42 VBG Base Excess (-2-3) mmol/L 1 VBG Lactate TNP 1.3 Sodium (136-145) mmol/L 116 L* Potassium (3.5-5.1) mmol/L 4.1 Chloride (98-107) mmol/L 76 L Carbon Dioxide (21.0-32.0) mmol/L 24.7 Anion Gap (3-11) mmol/L 15.3 H BUN (7-18) mg/dL 114 H* Creatinine (0.70-1.30) mg/dL 4.6 H* Est GFR (CKD-EPI 2020) (mL/min/1.73m2) 14.33 Glucose (74-106) mg/dL 172 H Calcium (8.5-10.1) mg/dL 7.7 L Phosphorus (2.6-4.7) mg/dL 9.1 H Magnesium (1.8-2.4) mg/dL 2.6 H Total Bilirubin (0.2-1.0) mg/dL 1.08 H AST (15-37) U/L 16 ALT (16-63) U/L 16 Alkaline Phosphatase (46-116) U/L 137 H Creatine Kinase (39-308) U/L 63 Cancelled Troponin I (<or=76) ng/L 652 H* C-Reactive Protein (<or=0.5) mg/dL 2.73 H NT-Pro-B Natriuret Pep (<300) pg/mL > 59732 H Total Protein (6.4-8.2) g/dL 6.9 Albumin (3.4-5.0) g/dL 3.1 L Procalcitonin ng/mL 0.32 Urine Color (Yellow) Urine Clarity (Clear) Urine pH (5-8) Ur Specific [place] (1.005-1.025) Urine Protein (Neg-Trace) mg/dL Urine Ketones (Negative) mg/dL Urine Blood (Negative) Urine Nitrite (Negative) Urine Bilirubin (Negative) Urine Urobilinogen (Up to 0.2) mg/dL Ur Leukocyte Esterase (Negative) Urine RBC (0-2) HPF Urine WBC (0-5) HPF Ur Epithelial Cells (Negative) HPF Urine Crystals (Negative) HPF Urine Bacteria (Negative) HPF Urine Casts (Negative) LPF Urine Mucus (Negative) Urine Other (Negative) Ur Culture Indicated? Urine Glucose (Negative) mg/dL Range/Units 06/25/24 21:00 WBC (4.4-10.8) 10^3/uL RBC (4.36-5.78) 10^6/uL Hgb (13.5-17.5) g/dL Hct (40.0-50.0) % MCV (80-95) fL MCH (27.0-33.0) pg MCHC (32.0-36.0) % RDW (11.8-14.1) % Plt Count (130-400) 10^3/uL MPV (8.0-11.0) fL Immature Gran % % Neutrophils % % Lymphocytes % % Monocytes % % Eosinophils % % Basophils % % Nucleated RBC % (0.0-0.3) % Absolute Neutrophils (1.2-6.7) 10^3/uL Absolute Lymphocytes (1.2-3.4) 10^3/uL Absolute Monocytes (0.1-0.8) 10^3/uL Absolute Eosinophils (0.0-0.7) 10^3/uL Absolute Basophils (0.0-0.2) 10^3/uL ESR (0-20) mm/hr VBG pH (7.31-7.41) VBG pCO2 (41-51) mmHg VBG pO2 mmHg VBG HCO3 (23-28) mmol/L VBG Total CO2 (24-29) mmol/L VBG O2 Saturation % VBG Base Excess (-2-3) mmol/L VBG Lactate Sodium (136-145) mmol/L Potassium (3.5-5.1) mmol/L Chloride (98-107) mmol/L Carbon Dioxide (21.0-32.0) mmol/L Anion Gap (3-11) mmol/L BUN (7-18) mg/dL Creatinine (0.70-1.30) mg/dL Est GFR (CKD-EPI 2020) (mL/min/1.73m2) Glucose (74-106) mg/dL Calcium (8.5-10.1) mg/dL Phosphorus (2.6-4.7) mg/dL Magnesium (1.8-2.4) mg/dL Total Bilirubin (0.2-1.0) mg/dL AST (15-37) U/L ALT (16-63) U/L Alkaline Phosphatase (46-116) U/L Creatine Kinase (39-308) U/L Troponin I (<or=76) ng/L 635 H* C-Reactive Protein (<or=0.5) mg/dL NT-Pro-B Natriuret Pep (<300) pg/mL Total Protein (6.4-8.2) g/dL Albumin (3.4-5.0) g/dL Procalcitonin ng/mL Urine Color (Yellow) Yellow Urine Clarity (Clear) Clear Urine pH (5-8) 5.0 Ur Specific [place] (1.005-1.025) 1.015 Urine Protein (Neg-Trace) mg/dL >=300 H Urine Ketones (Negative) mg/dL Negative Urine Blood (Negative) Negative Urine Nitrite (Negative) Negative Urine Bilirubin (Negative) Negative Urine Urobilinogen (Up to 0.2) mg/dL 0.2 Ur Leukocyte Esterase (Negative) Negative Urine RBC (0-2) HPF 0-2 Urine WBC (0-5) HPF 0-2 Ur Epithelial Cells (Negative) HPF Few Urine Crystals (Negative) HPF Few Amorphous Urine Bacteria (Negative) HPF Few Urine Casts (Negative) LPF 0-2 Coarse Granular Urine Mucus (Negative) Negative Urine Other (Negative) Few Renal Ur Culture Indicated? No Urine Glucose (Negative) mg/dL 100 H Medical Decision Making 54-year-old complex gentleman presenting with weakness and multiple comorbidities most concerning for a sodium of 116 today. Patient is relatively asymptomatic with this finding but this is a new finding this week. Last sodium was 122, CKD, creatinine and BUN are not grossly changed, 4.6 and 114 respectively. Phosphorus of 9.1 increasing from 7.7, calcium was 7.7, will send ionized calcium, glucose 172 troponin 652, baseline for patient when compared to prior, decreased to 635 1 hour later, remains asymptomatic from a chest pain perspective. Mild elevation in CRP 2.73, procalcitonin of 3.5 and lactate within normal limits, BNP greater than 35,000, baseline for patient. Last ejection fraction 18% at this facility. I spent approximately 15 minutes reviewing patient's prior echocardiogram with global hypokinesis, cardiology notes from evaluation on 06 21 and consultation with our hospitalist and attempt admit patient at this facility. Our hospitalist would like patient transfer for continuity of care purposes and secondary to need for nephrology and cardiology involvement in decision making given patient's tenuous history. Patient remains alert, oriented, and hemodynamically stable in no respiratory distress. I discussed the case with Dr. Castro, nephrology who given evaluation recommends IV Lasix at this time, 100 mg. This was initiated at approximately 815. Patient had 500 cc of urinary output at that time and urine was sent. urine osmolality test is a send out lab. I will recheck a BMP prior to transport. At this time we are still working on obtaining transportation given current weather complications, transportation may be delayed, will continue to monitor patient on telemetry will update should labs change from baseline. Dr. Bearden is the ED physician who has accepted patient as hospitalist medicine beds may be limited at this time. At 2345, we are still working on arranging transportation, noticed persistent delay secondary to weather conditions in this underserved community. Patient will continue to be observed by Dr. Meadows pending transfer to [facility]. He will need repeat Na levels if pt remains in ED for period of time. FUll code Quality:SDOH Health Related Social Needs: Health related social needs housing instability, house d, with risk of homelessness(Z59.811) Critical Care Time Critical Care Time Attestation: 35 minutes of critical care time secondary to acute hyponatremia requiring Lasix secondary to acute CHF, CKD with monitoring, hyperphosphatemia, requiring continue telemetry monitoring, tertiary care consultation with nephrology, hospitalist medicine, and emergency medicine, diagnostic imaging interpretation, diagnostic lab interpretation, reviewing echocardiograms and diagnostic tests and transferring to tertiary care center [facility] All Active Problems (Updated 06/26/24 @ 19:57 by ISIDRO Mahan) CHF (congestive heart failure) (Chronic) Hyperphosphatemia (Acute) Acute hyponatremia (Acute) Hyperphosphatemia (Acute) Amputat leg, bilat-complicated (Acute) Non-ST elevation MN (NSTEMI) (Acute) Anemia (Chronic) CKD (chronic kidney disease) (Chronic) Edema (Acute) CHF (congestive heart failure) (Chronic) PDR (proliferative diabetic retinopathy) (Acute ~05/25/24) 05/25/24 [facility] note.[facility] Anemia in CKD (chronic kidney disease) (Acute) Glucosuria (Acute) Proteinuria (Acute) Acute systolic (congestive) heart failure (Acute) Edema of abdominal wall (Acute) Edema of right lower extremity (Chronic) Fluctuating 2' CHF, fluid overload/diuresis Edema of left lower extremity (Chronic) Fluctuating 2' CHF, fluid overload/diuresis At risk for fluid and electrolyte imbalance (Acute) Long Hx 2' med changes, fluid overload. At risk for medication error (Acute) 2' ED, Hosp, Specialists, H&R, HH .. and transportation/delivery difficulties Type 2 diabetes mellitus with proliferative diabetic retinopathy without macular edema, bilateral (Acute) COVID (Acute ~06/22/23) Edema (Acute) Hyperphosphatemia associated with renal failure (Acute) Decreased ambulation status (Acute) Scooter, for outside .. 4-wheel, for hill, grass & dog.. getting to basement shop and garage and acreage.. HCM and QOL .. and working for [employer]. CKD (chronic kidney disease) stage 4, GFR 15-29 ml/min (Acute) GFR @ 19-20 with elevated A1C, but @ risk of hypoglycemia.. CHANEL (acute kidney injury) (Acute) Improved with diuresis and hydration @ home, but high risk for repeat episodes Hypertension associated with diabetes (Acute) Persistent proteinuria associated with type 2 diabetes mellitus (Acute) Hyperglycemia due to diabetes mellitus (Acute) Diabetes mellitus with complication in adult patient (Chronic) Type 2 diabetes mellitus with diabetic polyneuropathy (Acute) Iron deficiency (Acute) History of anemia (Chronic) Coronary artery disease (Chronic) w/ dilated cardiomyopathy and (+) stress test ++> PCI/Stenting, 12/29/21 Ischemic cardiomyopathy (Chronic) w/ (+) stress test and PCI/Stenting, 12/29/21 ICD (implantable cardioverter-defibrillator) in place (Acute) ICD, single lead, [employer] Visia 04/27/2018 [place], [place] Elevated brain natriuretic peptide (BNP) level (Acute) thought to be near baseline, but unclear Hx Low serum albumin (Chronic) Protein WNL per 02/2022 labs Chronic systolic CHF (congestive heart failure) (Acute) EF 20-25% per Jul 2023 Echo ([facility]) 05/04/24 EF 25% at [facility] Pulmonary hypertension (Acute) 12/29/21. [id number]. Noted during Cardiac cath, [facility]. NYHA Class IV Dermatitis, unspecified (Acute ~11/2021) 12/07/21 Dermatology Chronic posttraumatic stress disorder (Acute) History of posttraumatic stress disorder (PTSD) (Acute) Long Hx, Restarted with counselor, Madison Harris. 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 Working with [employer] re: prosthetics.. Rt, November 2020. Lft, 2018 (?) GERD (gastroesophageal reflux disease) (Chronic) PPI COPD (chronic obstructive pulmonary disease) (Chronic) Hx smoker (~10pkyr), PFTs (04/17/21). Disability examination (Acute) PFTs, 04/2021 for Disability 2' COPD. Housing or economic problem (Acute) Nasal polyp (Acute) Pt report based on past ENT 06/02/[address] Haque - surgical correction planned Allergic rhinitis due to allergen (Acute) Nasal turbinate hypertrophy (Acute) Other chronic sinusitis (Acute) Deviated nasal septum (Acute) Seasonal allergies (Acute) Corneal opacification (Acute) OS Proliferative retinopathy of both eyes (Acute) Full PRP OD Vitamin D deficiency (Acute) Secondary hyperparathyroidism (Acute) Medical History CKD stage 3 secondary to diabetes CKD4, October 2022! 08/2019 Cr 1.74 ... Elevated in 2020 2' Inf/ABx/HyperGly .. [ ] re-check 03/2021! SARS-CoV-2 positive (~04/14/22) Dehydration Hypercalcemia (~02/21/22) Elevated troponin Positive cardiac stress test 2021 .. Cath, with stent placement + 12/29/21. Edema of abdomen Neck pain acute .. due to sleeping on sofa?? coughing? Decreased range of motion (ROM) of right knee Flexion ok; Extension is difficult .. Continues to work with PT Psoriasis Carpal tunnel syndrome of left wrist Cubital bursitis of right elbow Diabetic foot ulcer associated with type 2 diabetes mellitus RESOLVED with amputation. 09/30/20-R heel w/cellulitis-Dr Kevin,DPM 10/16/20 [place]brid[place] by Podiatry [place]30/[place] [facility] [place] [facility] [place] Heel Ulcer - cont close wound care by Podiatry Hx: recurrent pneumonia walking pneumonia most vines x 3 years Cervical neuropathy Tendonitis of long head of biceps brachii of right shoulder Bursitis of right shoulder Right shoulder pain Acute on chronic issue: now with elbow and hand pain (ulnar), with tingling. Finger pain, left Could this be gout? No injury. Trial Naproxen. Nasal polyps Erectile dysfunction Testicular cancer Surgical History S/P cardiac catheterization 12/29/21 [facility] (Dr. Jerry Ramírez). PCI (via R radial artery) of mid-LAD. Balloon angioplasty and lithotripsy. 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 History of amputation of left lower extremity History of amputation of great toe Right History of cardiac defibrillator placement History of cataract removal with insertion of prosthetic lens (~03/02/18) Right History of gastric bypass (~07/01/14) History of cystoscopy (~12/25/13) History of tonsillectomy (~1979) History of orchiectomy, unilateral (~06/1999) Right Family History Mother Diabetes Father Diabetes Heart disease Hypertension Sister Diabetes Brother Diabetes Brother Diabetes Heart disease Hypertension Social History Smoking/Tobacco Use Status: Former Tobacco Use tobacco type: cigarettes Quit Date: 07/18/98 Tobacco: How many years used: 10 Smokeless tobacco user: chewing tobacco Quit status: considering quitting Smoking risk assessment performed?: Yes Alcohol Intake: current Alcohol Intake frequency: 0-2 drinks per day Alcohol type: hard liquor Drug use: Never Substance use type: does not use Adopted: No Caregiver/Support person: No Foster care: No Household members: significant other Housing: apartment Do you need help understanding health information?: Rarely current occupation: Unemployed Sexually active: Yes Do you think of yourself as: straight/heterosexual Current gender identity: male Do you feel safe at home: Yes (getting out of relationship) Do you feel safe in your relationship?: Yes Additional Social history: has motorized w/c and scooter.
--- NOTE | 2024-06-25 21:47 | DI.VRAD_ITS ---
PROCEDURE INFORMATION: Exam: XR Chest Exam date and time: 06/25/2024 8:16 PM Age: 54 years old Clinical indication: Shortness of breath and other: Shortness of breath, weakness, chf; Prior surgery; Surgery date: 6+ months; Surgery type: Pacemaker TECHNIQUE: Imaging protocol: Radiologic exam of the chest. Views: 2 views. COMPARISON: CR XR PORTABLE CHEST AP 05/29/2024 3:16 PM FINDINGS: Tubes, catheters and devices: Cardiac pacemaker without gross hardware complication or change. Lungs: Low lung volumes. Mild central vascular congestion. Mild perihilar and basilar alveolar attenuation could relate to mild subsegmental atelectasis versus patchy mild edema or pneumonitis. No consolidations. Pleural spaces: No pleural effusion. No pneumothorax. Heart/Mediastinum: Mild-moderate cardiomegaly. No tracheal/mediastinal shift. Bones/joints: No acute osseous abnormalities are identified. IMPRESSION: 1. Low lung volumes. 2. Mild-moderate cardiomegaly and mild vascular congestion consistent with CHF history. Cardiac pacemaker without gross complication or change. 3. Minor perihilar and basilar alveolar attenuation could relate to subsegmental atelectasis versus patchy mild edema or pneumonitis. Dictated and Authenticated by: Koby Medina MD. Ordering:BINA Pool MD
[2024-06-25] MEDS: cefTRIAXone 1 GM/50 ML BAG IVPB (22:23)
[2024-06-25 22:49] LABS: Anion Gap 13.2 mmol/L (3-11); CO2 24.8 mmol/L (21.0-32.0); Chloride 78 mmol/L (98-107); Estimated GFR 14.71 (mL/min/1.73m2); Glucose 149 mg/dL (74-106); Potassium 4.1 mmol/L (3.5-5.1)
[2024-06-25 22:55] LABS: BUN 114 mg/dL (7-18)
[2024-06-25 22:56] LABS: CREATININE 4.5 mg/dL (0.70-1.30); Sodium 116 mmol/L (136-145)
[2024-06-26] VITALS (20 sets, daily range): BP systolic 107–150; BP diastolic 59–86; PULSE 70–78; RESP 9–25; O2SAT 82–97
[2024-06-26 05:54] LABS: Calcium 7.6 mg/dL (8.5-10.1); Chloride 78 mmol/L (98-107); Estimated GFR 14.33 (mL/min/1.73m2); Glucose 136 mg/dL (74-106); Potassium 3.3 mmol/L (3.5-5.1)
[2024-06-26 06:03] LABS: BUN 115 mg/dL (7-18); CREATININE 4.6 mg/dL (0.70-1.30); Sodium 118 mmol/L (136-145)
--- NOTE | 2024-06-26 08:28 | W.ED.FU ---
Follow Up Plan: I received a call from radiology after this patient had left for [facility]. Radiology was concerned for soft tissue infection on his left lower extremity. Patient received blood cultures and ceftriaxone prior to departure. I called [facility] transfer center and possible on this update. I advised that the ED attending call with any questions.
--- NOTE | 2024-06-28 10:21 | NUR.NOTE ---
Addendum entered by Kassi Grijalva 06/28/24 10:27: Access chart to reconcile EKG orders with EKG's in [facility]. Duplicate order cancelled. Original Note: She Monge faxed wound culture results to [facility] transfer center. Nursing Note:
== END 2024-06-26 07:47 | disposition short-term general hospital (02) ==
PROVIDERS: Emergency Medicine Emergency Medical Services; Emergency Provider Physician Assistant; PCP Student in an Organized Health Care Education/Training Program
DX: E87.1 Hypo-osmolality and hyponatremia (principal); E83.39 Other disorders of phosphorus metabolism; I51.7 Cardiomegaly; E11.22 Type 2 diabetes mellitus with diabetic chronic kidney disease; I12.9 Hypertensive chronic kidney disease with stage 1 through stage 4 chronic kidney disease, or unspecified chronic kidney disease; N18.30 Chronic kidney disease, stage 3 unspecified; I45.2 Bifascicular block; Z95.810 Presence of automatic (implantable) cardiac defibrillator; Z89.512 Acquired absence of left leg below knee; Z79.4 Long term (current) use of insulin; Z79.01 Long term (current) use of anticoagulants; Z79.82 Long term (current) use of aspirin; Z98.84 Bariatric surgery status
CPT/HCPCS: 36415; 80048; 80053; 82550; 82805; 84145; 85652; 87040; 87077; 93005; 96365; 96367; 99285; 71046; 73590; 81003; 81015; 83605; 83735; 83880; 84100; 84484; 85025; 86140; 87070; 87186; 87205; 93010; J0696; J1940

== ENCOUNTER 2024-07-24 09:48 | Outpatient (REF) | payer MEDICARE, MEDICAID, SELFPAY | END 2024-07-24 09:49 | disposition home or self-care (01) | LOC: LBN 09:48 | PROVIDERS: PCP Family Medicine; Visit Provider Emergency Medicine | DX: T14.8XXA Other injury of unspecified body region, initial encounter (principal) | CPT/HCPCS: 87077; 87070 ==

== ENCOUNTER 2024-07-24 10:23 | Emergency (ER) | payer MEDICARE, MEDICAID, SELFPAY ==
[2024-07-24] VITALS (13 sets, daily range): BP systolic 107–141; BP diastolic 60–130; PULSE 62–95; RESP 18–20; TEMP 36.3–37; O2SAT 92–99
[2024-07-24 11:26] LABS: Abs Immature Grans 0.07 10^3/uL (0.0-0.06); Absolute Basophil Count 0.04 10^3/uL (0.0-0.2); Absolute Eosinophil Count 0.19 10^3/uL (0.0-0.7); Absolute Lymphocyte Count 0.62 10^3/uL (1.2-3.4); Absolute Neutrophil Count 6.38 10^3/uL (1.2-6.7); Basophils % 0.5 %; Eosinophils % 2.4 %; HCT 35.8 % (40.0-50.0); HGB 11.5 g/dL (13.5-17.5); Immature Grans % 0.9 %; Lymphocytes % 7.8 %; MCH 32.9 pg (27.0-33.0); MCHC 32.1 % (32.0-36.0); MCV 102 fL (80-95); MPV 10.4 fL (8.0-11.0); Monocytes % 8.8 %; Neutrophils % 79.6 %; Platelet Count 160 10^3/uL (130-400); RDW 17.2 % (11.8-14.1); RDW-SD 62.5 fL
[2024-07-24 11:28] LABS: ESR 15 mm/hr (0-20)
[2024-07-24 11:44] LABS: ALT 15 U/L (16-63); AST 11 U/L (15-37); Albumin 2.9 g/dL (3.4-5.0); Alkaline Phosphatase 118 U/L (46-116); Anion Gap 5.7 mmol/L (3-11); BUN 25 mg/dL (7-18); Bilirubin, Total 0.51 mg/dL (0.2-1.0); C-Reactive Protein 5.77 mg/dL (<or=0.5); CO2 28.3 mmol/L (21.0-32.0); CREATININE 2.7 mg/dL (0.70-1.30); Calcium 8.7 mg/dL (8.5-10.1); Chloride 101 mmol/L (98-107); Estimated GFR 27.16 (mL/min/1.73m2); Glucose 153 mg/dL (74-106); Potassium 4.7 mmol/L (3.5-5.1); Sodium 135 mmol/L (136-145); Total Protein 6.7 g/dL (6.4-8.2)
--- NOTE | 2024-07-24 12:06 | DI.RAD_ITS ---
Exam(s) XR KNEE LT 2V AP,LAT XR FEMUR LT EXAM: XR KNEE LT 2V AP,LAT and XR femur LT CLINICAL HISTORY: wound infection. TECHNIQUE: 2D digital imaging was performed of the left femur and knee. Seven images were obtained. Merchant,AP, lateral and PA tunnel views were obtained. COMPARISON: CR,XR XR TIB/FIB LT from 06/25/2024 FINDINGS: BONES: No acute fracture is present. There again seen postsurgical changes of a below the knee amput ation. No destructive changes are seen to suggest osteomyelitis at this time. JOINTS: The hip joint is well maintained. There is a small joint effusion in the knee. The knee is otherwise well maintained. No loose body. SOFT TISSUE: Extensive atherosclerotic calcification is present. There is mild generalized soft tiss ue swelling of the lower extremity. IMPRESSION: No acute abnormality. No radiographic evidence to suggest osteomyelitis is seen at this time. DATA REPOSITORY: RADIATION DOSE DELIVERED:
[2024-07-24 12:39] LABS: Bilirubin Small (Negative); Blood Negative (Negative); Clarity Sl Cloudy (Clear); Glucose 500 mg/dL (Negative); Ketones Trace mg/dL (Negative); Leukocyte Esterase Negative (Negative); Nitrite Negative (Negative); Specific Gravity 1.025 (1.005-1.025); Urobilinogen 0.2 mg/dL (Up to 0.2)
[2024-07-24 13:30] LABS: Bacteria Moderate HPF (Negative); C & S Indicated? No/Sq. Contamination; Crystals Moderate Amorphous HPF (Negative); Epithelial Cells Many HPF (Negative); Mucus Trace (Negative); WBC 20-50 HPF (0-5)
[2024-07-24] MEDS: oxyCODONE 5 MG TAB PO (13:35)
[2024-07-24] MEDS: Mupirocin 2% Oint. 22 GM TUBE TP (13:36)
--- NOTE | 2024-07-24 15:35 | W.ED.GENAD ---
Discharge Plan Disposition Patient Disposition: Home Discharge Details Clinical Impression: Amputation stump infection Primary Care Provider: Wesley Lee ED Provider: Corine Mattson Home Meds and New Rx's Prescriptions: New cephalexin 500 mg capsule 500 mg PO BID 7 Days Qty: 14 0RF Continued (DME) Left Outer Sleeve See Rx Instructions .Route .MEDSUPPLY Qty: 1 0RF Rx Instructions: As directed (DME) Right prosthetic socket See Rx Instructions .Route .MEDSUPPLY Qty: 1 0RF Rx Instructions: As directed (DME) glucometer WITH MATCHING TEST STRIPS See Rx Instructions .Route .MEDSUPPLY Qty: 1 0RF Rx Instructions: Using TID until CGM available, then as back-up (DME) lancets Misc See Rx Instructions .ROUTE .MEDSUPPLY Qty: 300 3RF Rx Instructions: To check blood glucose three times daily. On insulin. Dispense covered brand. 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 A1C < 7.5 (DME) BKA Prosthetics, B/L See Rx Instructions .Route .MEDSUPPLY Qty: 2 1RF Rx Instructions: Measurement/fitting TBD by [employer] unless out-sourced levalbuterol tartrate 45 mcg/actuation HFA aerosol inhaler 2 inh inhalation Q6H Qty: 15 1RF Rx Instructions: TRIAL LEV-ALB INHALER (DME) Amputation Compression Sleeve See Rx Instructions .Route .MEDSUPPLY Qty: 1 0RF Rx Instructions: Please provide and fit a compression sleeve to the left BKA stump for appropriate prosthesis wear. (DME) fore arm cuff crutches See Rx Instructions .Route .MEDSUPPLY Qty: 1 0RF Rx Instructions: dispense 1 pair acetaminophen 325 mg tablet 650 mg PO Q4H PRN (Reason: fever or pain) Qty: 180 1RF azelastine 137 mcg (0.1 %) aerosol,spray See Rx Instructions intranasal BID Qty: 30 1RF Rx Instructions: 1-2 sprays intranasal twice a day; administer into each nostril (DME) FreeStyle Luis 2 [place] Misc See Rx Instructions .ROUTE .MEDSUPPLY Qty: 1 0RF Rx Instructions: As directed (DME) FreeStyle Luis 2 Sensor Kit See Rx Instructions .ROUTE .MEDSUPPLY Qty: 6 3RF Rx Instructions: As directed fluticasone propionate [Allergy Relief (fluticasone)] 50 mcg/actuation spray,suspension 1 spray intranasal DAILY Qty: 16 1RF Rx Instructions: administer into each nostril (DME) Contour Test Strips Strip See Rx Instructions .Route Qty: 100 2RF Rx Instructions: DX E11.9 Check BS TID use as back up if CGM fails. Farxiga 5 mg tablet See Rx Instructions .ROUTE .COMPLEX Qty: 28 10RF Dose Instruction: TAKE 1 TABLET BY MOUTH DAILY FOR TYPE 2 DIABETES MELLITUS NOT AT GOAL, STAGE 3 CKD Rx Instructions: TAKE 1 TABLET BY MOUTH DAILY FOR TYPE 2 DIABETES MELLITUS NOT AT GOAL, STAGE 3 CKD ascorbic acid (vitamin C) 1,000 mg tablet 500 mg PO DAILY Qty: 90 3RF Rx Instructions: Doses exceeding 500mg daily will invalidate CGM sensor. 02/04/22 EO Spiriva Respimat 2.5 mcg/actuation mist See Rx Instructions .ROUTE .COMPLEX Qty: 4 3RF Dose Instruction: INHALE 2 PUFFS BY MOUTH DAILY Rx Instructions: INHALE 2 PUFFS BY MOUTH DAILY (DME) pen needle, diabetic [BD Ultra-Fine Mini Pen Needle] 31 gauge x 3/16 needle See Rx Instructions .Route Qty: 300 3RF Rx Instructions: As directed for injecting Lantus/humalog to maintain A1C < 7, DM E11.8 clopidogrel 75 mg tablet 75 mg PO DAILY Qty: 30 5RF Rx Instructions: take separately from reflux medication. cholecalciferol (vitamin D3) 25 mcg (1,000 unit) capsule 25 mcg PO DAILY Qty: 90 3RF cyanocobalamin (vitamin B-12) 1,000 mcg capsule 1,000 mcg PO DAILY Qty: 90 3RF atorvastatin 10 mg tablet 10 mg PO DAILY Qty: 90 3RF cetirizine 10 mg tablet 10 mg PO DAILY Qty: 90 3RF aspirin 81 mg tablet,delayed release (DR/EC) 81 mg PO DAILY Qty: 90 3RF carvedilol 12.5 mg tablet 12.5 mg PO BID Qty: 180 3RF Rx Instructions: must administer with a meal/food (DME) Dexcom G7 Sensor Device See Rx Instructions .Route Qty: 3 11RF Rx Instructions: For A1C < 7.5, DM E11.8 (36 per year) insulin lispro [Humalog KwikPen Insulin] 100 unit/mL insulin pen 1 sliding scale dose subcut USEASDIRECTD MDD 50 units Qty: 15 3RF Rx Instructions: [facility] Endo - current correction of 1u:30mg/dl, starting at 130mg/dl per pt. 01/06/21 pantoprazole 40 mg tablet,delayed release (DR/EC) 40 mg PO DAILY Qty: 90 3RF methocarbamol 750 mg tablet 750 mg PO QID Rx Instructions: X14 days per [facility] insulin glargine 100 unit/mL (3 mL) insulin pen 37 unit subcut QPM Qty: 15 3RF Rx Instructions: 07/10/2024: Per [facility] spironolactone 25 mg tablet 50 mg PO DAILY losartan 25 mg tablet 25 mg PO DAILY Qty: 90 3RF torsemide 100 mg tablet 100 mg PO DAILY Qty: 90 3RF Nephrovite 0.8 mg PO DAILY Qty: 90 3RF Dupixent Syringe 300 mg/2 mL syringe 300 mg SUBCUT Q2W clobetasol 0.05 % spray,non-aerosol 1 applic topical BID PRN Rx Instructions: not to exceed 26 sprays per single application calcium acetate(phosphat bind) 667 mg Capsule 667 mg PO BID@0800,1700 Qty: 20 0RF Discharge Instructions Additional Instructions: wash wound with soap and water and reapply mepilex and mupirocin apply mupirocin with dressing change every other day please have vascular reassess your left leg at your appt at the end of the month take the antibiotic twice daily on dialysis days, take after dialysis return with spreading redness, fever, worsening pain recheck with your doctor in 72 hours Referrals: Wesley Lee DO [Primary Care Provider] - 3 days HPI General Date/Time Provider Initiated Documentation: 07/24/24 10:29. HPI Narrative: This 54-year-old male with multiple medical comorbidities presents from his doctor's office with report of redness to his stump with an ulcer. There is concern for infection. Patient denies any change in pain or symptoms. He denies any fever or chills at home. Denies any current antibiotics or known trauma to the affected area. He denies any chest pain or shortness of breath. Related Data Home Medications ?Medication ?Instructions ?Recorded ?Confirmed Amputation Compression Sleeve #1 ea 01/26/21 07/24/24 fore arm cuff crutches #1 ea 06/07/21 07/24/24 Left Outer Sleeve #1 ea 12/07/21 07/24/24 acetaminophen 325 mg tablet 650 mg (2 x 325 mg) PO Q4H PRN 04/02/22 07/24/24 fever or pain #180 tabs azelastine 137 mcg (0.1 %) nasal See Rx Instructions intranasal BID 04/02/22 07/24/24 spray #30 mL flash glucose scanning reader #1 ea 04/02/22 07/24/24 (FreeStyle Luis 2 [place]) flash glucose sensor (FreeStyle #6 ea 04/02/22 07/24/24 Luis 2 Sensor kit) Right prosthetic socket #1 ea 05/13/22 07/24/24 fluticasone propionate 50 1 spray intranasal DAILY #16 grams 12/02/22 07/24/24 mcg/actuation nasal spray,suspension (Allergy Relief (fluticasone)) blood-glucose meter,continuous #1 ea 01/25/23 07/24/24 ([employer]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) glucometer WITH MATCHING TEST #1 ea 03/10/23 07/24/24 STRIPS lancets #300 ea 03/10/23 07/24/24 blood sugar diagnostic (Contour #100 ea 03/18/23 07/24/24 Test Strips) ascorbic acid (vitamin C) 1,000 mg 500 mg (1/2 x 1,000 mg) PO DAILY 08/09/23 07/24/24 tablet #90 tabs dapagliflozin propanediol 5 mg See Rx Instructions .Route 08/09/23 07/24/24 tablet (Farxiga) .COMPLEX #28 tabs tiotropium bromide 2.5 See Rx Instructions .Route 10/10/23 07/24/24 mcg/actuation mist for inhalation .COMPLEX #4 grams (Spiriva Respimat) Sleeve, Left BKA #1 ea 10/15/23 07/24/24 Sleeve, Right BKA #1 ea 10/15/23 07/24/24 pen needle, diabetic 31 gauge x #300 ea 10/20/23 07/24/24 3/16 (BD Ultra-Fine Mini Pen Needle) dupilumab 300 mg/2 mL subcutaneous 300 mg subcut Q2W 10/29/23 07/24/24 syringe (Dupixent) BKA Prosthetics, B/L #2 ea 01/21/24 07/24/24 clopidogrel 75 mg tablet 75 mg PO DAILY #30 tabs 01/26/24 07/24/24 aspirin 81 mg tablet,delayed 81 mg PO DAILY #90 tabs 02/21/24 07/24/24 release atorvastatin 10 mg tablet 10 mg PO DAILY #90 tabs 02/21/24 07/24/24 carvedilol 12.5 mg tablet 12.5 mg PO BID #180 tabs 02/21/24 07/24/24 cetirizine 10 mg tablet 10 mg PO DAILY #90 tabs 02/21/24 07/24/24 cholecalciferol (vitamin D3) 25 25 mcg PO DAILY #90 caps 02/21/24 07/24/24 mcg (1,000 unit) capsule cyanocobalamin (vitamin B-12) 1,000 mcg PO DAILY #90 caps 02/21/24 07/24/24 1,000 mcg capsule blood-glucose sensor (Dexcom G7 #3 ea 02/25/24 07/24/24 Sensor device) insulin lispro 100 unit/mL 1 sliding scale dose subcut 03/10/24 07/24/24 subcutaneous pen (Humalog KwikPen USEASDIRECTD DM, E11.8 .. to jeep (U-100) Insulin) A1C < 7.5 #15 mL levalbuterol tartrate 45 2 inh inhalation Q6H #15 grams 05/09/24 07/24/24 mcg/actuation aerosol inhaler clobetasol 0.05 % topical spray 1 applic topical BID PRN 05/30/24 07/24/24 pantoprazole 40 mg tablet,delayed 40 mg PO DAILY #90 tabs 05/31/24 07/24/24 release calcium acetate(phosphat bind) 667 667 mg PO BID@0800,1700 #20 caps 06/05/24 07/24/24 mg capsule trazodone 50 mg tablet 50 mg PO QHS PRN sleep #30 tabs 06/12/24 07/24/24 insulin glargine 100 unit/mL (3 37 unit (0.37 mL) subcut QPM #15 mL 07/12/24 07/24/24 mL) subcutaneous pen methocarbamol 750 mg tablet 750 mg PO QID 07/12/24 07/24/24 spironolactone 25 mg tablet 50 mg PO DAILY 07/12/24 07/24/24 Nephrovite 0.8 mg PO DAILY #90 tabs 07/16/24 07/24/24 losartan 25 mg tablet 25 mg PO DAILY #90 tabs 07/16/24 07/24/24 torsemide 100 mg tablet 100 mg PO DAILY #90 tabs 07/16/24 07/24/24 cephalexin 500 mg capsule 500 mg PO BID 7 days #14 caps 07/24/24 oxycodone 5 mg tablet 5 mg PO .prn dialysis PRN pain #14 07/24/24 07/24/24 tabs Previous Rx's ?Medication ?Instructions ?Recorded Amputation Compression Sleeve #1 ea 01/26/21 fore arm cuff crutches #1 ea 06/07/21 Left Outer Sleeve #1 ea 12/07/21 acetaminophen 325 mg tablet 650 mg (2 x 325 mg) PO Q4H PRN 04/02/22 fever or pain #180 tabs azelastine 137 mcg (0.1 %) nasal See Rx Instructions intranasal BID 04/02/22 spray #30 mL flash glucose scanning reader #1 ea 04/02/22 (FreeStyle Luis 2 [place]) flash glucose sensor (FreeStyle #6 ea 04/02/22 Luis 2 Sensor kit) Right prosthetic socket #1 ea 05/13/22 fluticasone propionate 50 1 spray intranasal DAILY #16 grams 12/02/22 mcg/actuation nasal spray,suspension (Allergy Relief (fluticasone)) blood-glucose meter,continuous #1 ea 01/25/23 (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) glucometer WITH MATCHING TEST #1 ea 03/10/23 STRIPS lancets #300 ea 03/10/23 blood sugar diagnostic (Contour #100 ea 03/18/23 Test Strips) ascorbic acid (vitamin C) 1,000 mg 500 mg (1/2 x 1,000 mg) PO DAILY 08/09/23 tablet #90 tabs dapagliflozin propanediol 5 mg See Rx Instructions .Route 08/09/23 tablet (Farxiga) .COMPLEX #28 tabs tiotropium bromide 2.5 See Rx Instructions .Route 10/10/23 mcg/actuation mist for inhalation .COMPLEX #4 grams (Spiriva Respimat) Sleeve, Left BKA #1 ea 10/15/23 Sleeve, Right BKA #1 ea 10/15/23 pen needle, diabetic 31 gauge x #300 ea 10/20/2309/30 (BD Ultra-Fine Mini Pen Needle) BKA Prosthetics, B/L #2 ea 01/21/24 clopidogrel 75 mg tablet 75 mg PO DAILY #30 tabs 01/26/24 aspirin 81 mg tablet,delayed 81 mg PO DAILY #90 tabs 02/21/24 release atorvastatin 10 mg tablet 10 mg PO DAILY #90 tabs 02/21/24 carvedilol 12.5 mg tablet 12.5 mg PO BID #180 tabs 02/21/24 cetirizine 10 mg tablet 10 mg PO DAILY #90 tabs 02/21/24 cholecalciferol (vitamin D3) 25 25 mcg PO DAILY #90 caps 02/21/24 mcg (1,000 unit) capsule cyanocobalamin (vitamin B-12) 1,000 mcg PO DAILY #90 caps 02/21/24 1,000 mcg capsule blood-glucose sensor (Dexcom G7 #3 ea 02/25/24 Sensor device) insulin lispro 100 unit/mL 1 sliding scale dose subcut 03/10/24 subcutaneous pen (Humalog KwikPen USEASDIRECTD DM, E11.8 .. to jeep (U-100) Insulin) A1C < 7.5 #15 mL levalbuterol tartrate 45 2 inh inhalation Q6H #15 grams 05/09/24 mcg/actuation aerosol inhaler pantoprazole 40 mg tablet,delayed 40 mg PO DAILY #90 tabs 05/31/24 release calcium acetate(phosphat bind) 667 667 mg PO BID@0800,1700 #20 caps 06/05/24 mg capsule trazodone 50 mg tablet 50 mg PO QHS PRN sleep #30 tabs 06/12/24 insulin glargine 100 unit/mL (3 37 unit (0.37 mL) subcut QPM #15 mL 07/12/24 mL) subcutaneous pen Nephrovite 0.8 mg PO DAILY #90 tabs 07/16/24 losartan 25 mg tablet 25 mg PO DAILY #90 tabs 07/16/24 torsemide 100 mg tablet 100 mg PO DAILY #90 tabs 07/16/24 cephalexin 500 mg capsule 500 mg PO BID 7 days #14 caps 07/24/24 oxycodone 5 mg tablet 5 mg PO .prn dialysis PRN pain #14 07/24/24 tabs Allergies Allergy/AdvReac Type Severity Reaction Status Date / Time tramadol AdvReac Severe renal Verified 07/24/24 10:31 failure Poor Renal Function AdvReac Unknown renal Uncoded 07/24/24 10:31 failure General Stated Complaint: Cellulitis RAMON: 3 Exam Narrative Exam Narrative: Morbidly obese 54-year-old gentleman alert and oriented, no acute distress, lungs clear to auscultation, bilateral below the knee amputations, mild erythema with stage II ulcer to left lateral stump, no lymphangitis, no warmth to touch, no crepitus, no abdominal tenderness. Course Vital Signs Vital signs: Vital Signs Temperature 36.3 C L 07/24/24 10:26 Pulse 94 H 07/24/24 10:26 Respiratory Rate 20 07/24/24 10:26 Blood Pressure 115/77 07/24/24 10:26 Pulse Oximetry 97 07/24/24 10:26 Temperature 37.0 C 07/24/24 13:22 Temperature Source Temporal Artery Scan 07/24/24 13:22 Pulse 95 H 07/24/24 13:22 Pulse Rhythm Regular 07/24/24 13:22 Pulse Strength Normal 07/24/24 13:22 Respiratory Rate 20 07/24/24 13:22 Respiratory Effort Normal 07/24/24 13:22 Respiratory Depth Normal 07/24/24 13:22 Respiratory Pattern Normal 07/24/24 13:22 Blood Pressure 126/83 07/24/24 13:22 Blood Pressure Mean 97 07/24/24 13:22 Blood Pressure Position Supine 07/24/24 13:22 Pulse Oximetry 98 07/24/24 13:44 Oxygen Delivery Method Room Air 07/24/24 13:22 Oxygen Flow Rate 0 07/24/24 13:22 Pain Level 9 07/24/24 13:22 Lab/Test Results Lab/Test Results: 07/24/24 10:42 Knee - Left Wound Culture - Pending 07/24/24 10:42 Knee - Left Gram Stain - Final 07/24/24 11:05 Blood Blood Culture - Pending 07/24/24 11:05 Blood Blood Culture - Pending Laboratory Tests Range/Units 07/24/24 07/24/24 07/24/24 11:05 11:05 12:25 WBC (4.4-10.8) 10^3/uL 8.00 RBC (4.36-5.78) 10^6/uL 3.50 L Hgb (13.5-17.5) g/dL 11.5 L Hct (40.0-50.0) % 35.8 L MCV (80-95) fL 102 H MCH (27.0-33.0) pg 32.9 MCHC (32.0-36.0) % 32.1 RDW (11.8-14.1) % 17.2 H Plt Count (130-400) 10^3/uL 160 MPV (8.0-11.0) fL 10.4 Immature Gran % % 0.9 Neutrophils % % 79.6 Lymphocytes % % 7.8 Monocytes % % 8.8 Eosinophils % % 2.4 Basophils % % 0.5 Nucleated RBC % (0.0-0.3) % 1.0 H Absolute Neutrophils (1.2-6.7) 10^3/uL 6.38 Absolute Lymphocytes (1.2-3.4) 10^3/uL 0.62 L Absolute Monocytes (0.1-0.8) 10^3/uL 0.70 Absolute Eosinophils (0.0-0.7) 10^3/uL 0.19 Absolute Basophils (0.0-0.2) 10^3/uL 0.04 ESR (0-20) mm/hr 15 Sodium (136-145) mmol/L 135 L Potassium (3.5-5.1) mmol/L 4.7 Chloride (98-107) mmol/L 101 Carbon Dioxide (21.0-32.0) mmol/L 28.3 Anion Gap (3-11) mmol/L 5.7 BUN (7-18) mg/dL 25 H Creatinine (0.70-1.30) mg/dL 2.7 H Est GFR (CKD-EPI 2020) (mL/min/1.73m2) 27.16 Glucose (74-106) mg/dL 153 H Calcium (8.5-10.1) mg/dL 8.7 Total Bilirubin (0.2-1.0) mg/dL 0.51 AST (15-37) U/L 11 L ALT (16-63) U/L 15 L Alkaline Phosphatase (46-116) U/L 118 H C-Reactive Protein (<or=0.5) mg/dL 5.77 H Cancelled Total Protein (6.4-8.2) g/dL 6.7 Albumin (3.4-5.0) g/dL 2.9 L Urine Color (Yellow) Yellow Urine Clarity (Clear) Sl Cloudy Urine pH (5-8) 5.0 Ur Specific [place] (1.005-1.025) 1.025 Urine Protein (Neg-Trace) mg/dL >=300 H Urine Ketones (Negative) mg/dL Trace H Urine Blood (Negative) Negative Urine Nitrite (Negative) Negative Urine Bilirubin (Negative) Small H Urine Urobilinogen (Up to 0.2) mg/dL 0.2 Ur Leukocyte Esterase (Negative) Negative Urine RBC (0-2) HPF 10-20 H Urine WBC (0-5) HPF 20-50 H Ur Epithelial Cells (Negative) HPF Many Urine Crystals (Negative) HPF Moderate Amorphous Urine Bacteria (Negative) HPF Moderate Urine Casts (Negative) LPF 10-20 CoarseGranular Urine Mucus (Negative) Trace Ur Culture Indicated? No/Sq. Contamination Urine Glucose (Negative) mg/dL 500 H Medical Decision Making 54-year-old male in no acute distress, alert and oriented, possible developing cellulitis to left lower extremity, no crepitus, x-rays were ordered of left lower extremity without obvious osteomyelitis. Ulcer was cleansed and mupirocin and dressing with Mepilex applied. Patient has extensive services at home we can monitor this. Patient also will need repeat assessment, placed on follow-up for 2 days for recheck, also placed on Keflex with hemodialysis precautions. Patient does have dialysis tomorrow. Patient has an appointment with vascular, given his recurrent cellulitis to his lower extremities and vasculature on x-ray, I did recommend he talk to vascular about arterial ultrasounds of his left lower extremity at this time he has good cap refill and warm bilateral lower extremities without evidence of acute vascular occlusion. We will treat empirically for cellulitis, CRP is baseline elevated sed rate is within normal limits, there is no significant leukocytosis I think patient is stable for discharge home at this time. His wound culture is reassuring and he has close outpatient reassessment. Return precautions reviewed and patient expressed understanding Quality:SDOH Health Related Social Needs: Health related social needs problems related to housing/economic circumstances (Z59.89), feeling lonely/isolated (Z60.8) PFSH All Active Problems (Updated 07/24/24 @ 13:32 by ISIDRO Mahan) Amputation stump infection (Acute) Cellulitis (Acute) Visual loss, one eye, no light perception (NLP) (Acute ~05/25/24) 05/25/24 No light perception 2' to tractional retinal detachment r/t DM & s/p multiple surgeries. CHF (congestive heart failure) (Chronic) Hyperphosphatemia (Acute) Acute hyponatremia (Acute) Hyperphosphatemia (Acute) Amputat leg, bilat-complicated (Acute) Non-ST elevation [place] (NSTEMI) (Acute) Anemia (Chronic) CKD (chronic kidney disease) (Chronic) Edema (Acute) CHF (congestive heart failure) (Chronic) PDR (proliferative diabetic retinopathy) (Acute ~05/25/24) 05/25/24 [facility] [place] note.HE Anemia in CKD (chronic kidney disease) (Acute) Glucosuria (Acute) Proteinuria (Acute) Acute systolic (congestive) heart failure (Acute) Edema of abdominal wall (Acute) Edema of right lower extremity (Chronic) Fluctuating 2' CHF, fluid overload/diuresis Edema of left lower extremity (Chronic) Fluctuating 2' CHF, fluid overload/diuresis At risk for fluid and electrolyte imbalance (Acute) Long Hx 2' med changes, fluid overload. At risk for medication error (Acute) 2' ED, Hosp, Specialists, H&R, HH .. and transportation/delivery difficulties Type 2 diabetes mellitus with proliferative diabetic retinopathy without macular edema, bilateral (Acute) COVID (Acute ~06/22/23) Edema (Acute) Hyperphosphatemia associated with renal failure (Acute) Decreased ambulation status (Acute) Scooter, for outside .. 4-wheel, for hill, grass & dog.. getting to basement shop and garage and acreage.. HCM and QOL .. and working for [employer]. CKD (chronic kidney disease) stage 4, GFR 15-29 ml/min (Acute) GFR @ 19-20 with elevated A1C, but @ risk of hypoglycemia.. CHANEL (acute kidney injury) (Acute) Improved with diuresis and hydration @ home, but high risk for repeat episodes Hypertension associated with diabetes (Acute) Persistent proteinuria associated with type 2 diabetes mellitus (Acute) Hyperglycemia due to diabetes mellitus (Acute) Diabetes mellitus with complication in adult patient (Chronic) Type 2 diabetes mellitus with diabetic polyneuropathy (Acute) Iron deficiency (Acute) History of anemia (Chronic) Coronary artery disease (Chronic) w/ dilated cardiomyopathy and (+) stress test ++> PCI/Stenting, 12/29/21 Ischemic cardiomyopathy (Chronic) w/ (+) stress test and PCI/Stenting, 12/29/21 ICD (implantable cardioverter-defibrillator) in place (Acute) ICD, single lead, [employer]tronic Visia 04/27/2018 [place], [place] Elevated brain natriuretic peptide (BNP) level (Acute) thought to be near baseline, but unclear Hx Low serum albumin (Chronic) Protein WNL per 02/2022 labs Chronic systolic CHF (congestive heart failure) (Acute) EF 20-25% per Jul 2023 Echo ([facility]) 05/04/24 EF 25% at [place] [facility] Pulmonary hypertension (Acute) 12/29/21. [id number]. Noted during Cardiac cath, [facility]. NYHA Class IV Dermatitis, unspecified (Acute ~11/2021) 12/07/21 Dermatology Chronic posttraumatic stress disorder (Acute) History of posttraumatic stress disorder (PTSD) (Acute) Long Hx, Restarted with counselor, Madison Harris. 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 Rt, November 2020. Lft, 2018 (?) GERD (gastroesophageal reflux disease) (Chronic) PPI COPD (chronic obstructive pulmonary disease) (Chronic) Hx smoker (~10pkyr), PFTs (04/17/21). Disability examination (Acute) PFTs, 04/2021 for Disability 2' COPD. Housing or economic problem (Acute) Nasal polyp (Acute) Pt report based on past ENT 06/02/[address] Haque - surgical correction planned Allergic rhinitis due to allergen (Acute) Nasal turbinate hypertrophy (Acute) Other chronic sinusitis (Acute) Deviated nasal septum (Acute) Seasonal allergies (Acute) Corneal opacification (Acute) OS Proliferative retinopathy of both eyes (Acute) Full PRP OD Vitamin D deficiency (Acute) Secondary hyperparathyroidism (Acute) Medical History CKD stage 3 secondary to diabetes CKD, October 2022! 08/2019 Cr 1.74 ... Elevated in 2020 2' Inf/ABx/HyperGly .. [ ] re-check 03/2021! SARS-CoV-2 positive (~04/14/22) Dehydration Hypercalcemia (~02/21/22) Elevated troponin Positive cardiac stress test 2021 .. Cath, with stent placement + 12/29/21. Edema of abdomen Neck pain acute .. due to sleeping on sofa?? coughing? Decreased range of motion (ROM) of right knee Flexion ok; Extension is difficult .. Continues to work with PT Psoriasis Carpal tunnel syndrome of left wrist Cubital bursitis of right elbow Diabetic foot ulcer associated with type 2 diabetes mellitus RESOLVED with amputation. 09/30/20-R heel w/cellulitis-Dr Kevin,DPDilia 10/16/20 Debridement by Podiatry 10/30/20 [facility] Vascular - RIGHT Heel Ulcer - cont close wound care by Podiatry Hx: recurrent pneumonia walking pneumonia most vines x 3 years Cervical neuropathy Tendonitis of long head of biceps brachii of right shoulder Bursitis of right shoulder Right shoulder pain Acute on chronic issue: now with elbow and hand pain (ulnar), with tingling. Finger pain, left Could this be gout? No injury. Trial Naproxen. Nasal polyps Erectile dysfunction Testicular cancer Surgical History S/P cardiac catheterization 12/29/21 [facility] (Dr. Jerry Ramírez). PCI (via R radial artery) of mid-LAD. Balloon angioplasty and lithotripsy. 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 History of amputation of left lower extremity History of amputation of great toe Right History of cardiac defibrillator placement History of cataract removal with insertion of prosthetic lens (~03/02/18) Right History of gastric bypass (~07/01/14) History of cystoscopy (~12/25/13) History of tonsillectomy (~1979) History of orchiectomy, unilateral (~06/1999) Right Family History Mother Diabetes Father Diabetes Heart disease Hypertension Sister Diabetes Brother Diabetes Brother Diabetes Heart disease Hypertension Social History Smoking/Tobacco Use Status: Former Tobacco Use tobacco type: cigarettes Quit Date: 07/18/98 Tobacco: How many years used: 10 Smokeless tobacco user: chewing tobacco Quit status: considering quitting Smoking risk assessment performed?: Yes Alcohol Intake: current Alcohol Intake frequency: 0-2 drinks per day Alcohol type: hard liquor Drug use: Never Substance use type: does not use Adopted: No Caregiver/Support person: No Foster care: No Household members: significant other Housing: apartment Do you need help understanding health information?: Rarely current occupation: Unemployed Sexually active: Yes Do you think of yourself as: straight/heterosexual Current gender identity: male Do you feel safe at home: Yes (getting out of relationship) Do you feel safe in your relationship?: Yes Additional Social history: has motorized w/c and scooter.
--- NOTE | 2024-07-25 10:47 | NUR.NOTE ---
Access chart to get the discharge antibiotics for would culture. See critical value in worklist. Nursing Note:
--- NOTE | 2024-07-25 10:52 | W.ED.FU ---
Date of service: 07/25/24 Time of Service: 10:52 Follow Up Plan: Patient's culture from yesterday is growing MRSA which she is growing before. He was placed on cephalexin, based on prior cultures that emergency has been susceptible to Cipro, have reached out to talk to the patient but he did not answer his phone. Awaiting callback to discuss adding ciprofloxacin
--- NOTE | 2024-07-25 10:55 | W.ED.FU ---
Date of service: 07/25/24 Time of Service: 10:55 Follow Up Plan: Patient called back and is feeling well. I discussed results with him and will send Cipro to his pharmacy. He will follow-up with his PCP and return precautions given
== END 2024-07-24 14:36 | disposition home or self-care (01) ==
PROVIDERS: Emergency Provider Physician Assistant; PCP Family Medicine
DX: L03.116 Cellulitis of left lower limb (principal); T87.44 Infection of amputation stump, left lower extremity; Z59.89 Other problems related to housing and economic circumstances; Z60.8 Other problems related to social environment
CPT/HCPCS: 36415; 73552; 80053; 85652; 87040; 87077; 99284; 73560; 81003; 81015; 85025; 86140; 87070; 87186; 87205